=== PATIENT | female | born 1940 | race Caucasian/White ===

== ENCOUNTER → 2025-06-23 04:00 | Outpatient (REF) | payer MEDICARE, SELFPAY ==
[2025-06-23 08:22] LABS: Anion Gap 11 (5-15); BUN 14 mg/dL (4-19); BUN/Creat Ratio 14.3 RATIO (10-20); Calcium,Total 9.1 mg/dL (7.6-11.0); Carbon Dioxide 26.1 mmol/L (21.0-32.0); Chloride 106 mmol/L (98-108); Glucose 105 mg/dL (70-99); Potassium 4.2 mmol/L (3.3-5.1)
== END ==
LOC: OLS.SWAL 04:00
PROVIDERS: Referring Provider Internal Medicine; Visit Provider Internal Medicine
DX: I10 Essential (primary) hypertension (principal)
CPT/HCPCS: 36415; 80048

== ENCOUNTER → 2025-08-11 | Outpatient (REF) | payer MEDICARE, SELFPAY ==
[2025-08-11 09:43] LABS: Hematocrit 28.8 % (37-47); Hemoglobin 8.9 g/dL (12.0-15.0); Immature Granulocytes Count 0.020 X10^3/uL (0.0-0.0); Mean Corp Hgb Conc 30.9 g/dL (32-36); Mean Corpuscular Volume 100.0 fL (81-99); Mean Platelet Vol. 9.4 fl (6.2-12.0); NRBC Flagged by Analyzer 0 % (0-5); Platelet Count 163 K/mm3 (150-450); RBC Distribution Width CV 14.3 % (11.6-14.6); RBC Distribution Width SD 51.6 fl (35.1-43.9); Red Blood Count 2.88 M/mm3 (4.2-5.4); White Blood Count 5.8 K/mm3 (4.4-11.0)
[2025-08-11 10:33] LABS: Anion Gap 10 (5-15); BUN 22 mg/dL (4-19); BUN/Creat Ratio 22.6 RATIO (10-20); Calcium,Total 9.3 mg/dL (7.6-11.0); Carbon Dioxide 25.6 mmol/L (21.0-32.0); Chloride 107 mmol/L (98-108); Glucose 71 mg/dL (70-99); Potassium 4.2 mmol/L (3.3-5.1); Uric Acid 7.3 mg/dL (2.6-6.0)
[2025-08-12 05:12] LABS: CRP 3.90 mg/L (0.0-3.0)
== END ==
LOC: OLS.SWAL 07:50
PROVIDERS: Visit Provider Internal Medicine
DX: I10 Essential (primary) hypertension (principal); M10.9 Gout, unspecified
CPT/HCPCS: 36415; 80048; 84550; 85025; 86140

== ENCOUNTER → 2025-08-19 | Outpatient (REF) | payer MEDICARE, SELFPAY ==
--- OUTSIDE RECORDS SUMMARY | 2025-08-19 04:28 | XMS RPT_ITS | CCD ---
Author Organization [facility] Care Team Providers Care Parking Enforcement Technician Name Role Phone FITZ GA MD Primary Care Physician Yanira Liz Unavailable Unavailable FITZ GA MD Primary Care Unavailable FITZ GA MD Attending Unavailable FITZ GA MD Attending Unavailable FITZ GA MD Primary Care Unavailable FITZ GA MD Attending Unavailable FITZ GA MD Primary Care Unavailable FITZ GA MD Attending Unavailable FITZ GA MD Primary Care Unavailable GELA NATARAJAN MD Attending Unavailable FITZ GA MD Primary Care Unavailable Yanira Liz LPN Unavailable Unavailable Yanira Chen LPN Unavailable Unavailable FITZ GA MD Primary Care Unavailable GELA NATARAJAN MD Attending Unavailable FITZ GA MD Attending Unavailable FITZ GA MD Primary Care Unavailable FITZ GA MD Primary Care Unavailable CAREN LEE Attending Unavail able FITZ GA MD Primary Care Unavailable FITZ GA MD Attending Unavailable FITZ GA MD Primary Care Unavailable FITZ GA MD Attending Unavailable FITZ GA MD Attending Unavailable FITZ GA MD Primary Care Unavailable FITZ GA MD Attending Unavailable FITZ GA MD Primary Care Unavailable FITZ GA MD Attending Unavailable FITZ GA MD Primary Care Unavailable FITZ GA MD Attending Unavailable FITZ GA MD Primary Care Unavailable GELA NATARAJAN MD Attending Unavailable FITZ GA MD Primary Care Unavailable FITZ GA MD Attending Unavailable FITZ GA MD Primary Care Unavailable DR ROMULO BARNARD MD Attending UnavailFITZ Christina MD Primary Care Unavailable Farnaz Tierney Attending Unavailable Farnaz Tierney Referring Unavailable Farnaz Tierney Attending Unavailable Allergies Allergy Classification Reported Allergen(s) Allergy Type Date of Onset Reaction(s) Facility (20 sources) Codeine; Translations: [codeine] Drug Allergy N/V [facility] (20 sources) Penicillin; Translations: [penicillin] Drug Allergy RASH [facility] (20 sources) predniSONE; Translations: [prednisone] Drug Allergy Nausea (finding) [facility] (20 sources) Tetracycline; Translations: [tetracycline] Drug Allergy Unknown [facility] (20 sources) egg albumin (whites) Allergy to substance Unknown [facility] Medications Current Medications Medication Drug Class(es) Dates Sig (Normalized) Sig (Original) 8 hr acetaminophen 650 mg extended release oral tablet (20 sources) Start: 04-30-2019 take 1 mg by mouth every eight hours acetaminophen 650 mg oral tablet, extended release mg = tab(s), Oral, q8h, 0 Refill(s) Start Date: 04/30/19 Status: Ordered Medication Dispense Status: Completed Total Allowed Fills: 1 Fills Dispensed: 0 Start: 04-30-2019 take 1 mg by mouth e very eight hours acetaminophen 650 mg oral tablet, extended release mg = tab(s), Oral, q8h, 0 Refill(s) Start Date: 04/30/19 Status: Ordered acetaminophen 325 mg / oxyCODONE hydrochloride 5 mg oral tablet (2 sources) Opioid Agonist Start: 06-05-2022 End: 06-08-2022 take 1 tablet by mouth every six hours as needed for pain Percocet 5 mg-325 mg oral tablet Dose = 1 tab(s), Oral, q6h, PRN for pain, X 3 day(s), # 8 tab(s), 0 Refill(s), Fall Hematoma, 76.1 Start Date: 06/05/22 Stop Date: 06/08/22 Status: Ordered Albuterol (Eqv-ProAir HFA) 90 mcg/inh inhalation aerosol (7 sources) Start: 11-24-2020 take 1 dose by inhalation every four hours as needed for wheezing Albuterol (Eqv-ProAir HFA) 90 mcg/inh inhalation aerosol Dose = 2 puff(s), Inhalation, q4h, PRN Wheezing Start Date: 11/24/20 Status: Ordered apixaban 5 mg oral tablet (20 sources) Factor Xa Inhibitor Start: 04-29-2025 End: 04-24-2026 Eliquis 5 mg oral tablet Dose : 5 mg = 1 tab(s), Oral, BID, # 180 tab(s), 3 Refill(s), Pharmacy: [facility], 157.5, cm, 03/20/25 10:23:00 EDT, Height, 68.4, kg, 03/20/25 10:23:00 EDT, Dosing Weight Start Date: 04/29/25 Stop Date: 04/24/26 Status: Ordered Medication Dispense Status: Completed Quantity: 180.0 Unit: tab(s) Total Allowed Fills: 4 Fills Dispensed: 0 Start: 10-13-2022 End: 04-07-2025 Eliquis 5 mg oral tablet Dos e : 5 mg = 1 tab(s), Oral, BID, # 180 tab(s), 3 Refill(s), Pharmacy: [facility], 157, cm, 04/12/24 11:01:00 EDT, Height, 72.3, kg, 04/12/24 11:01:00 EDT, Dosing Weight Start Date: 04/12/24 Stop Date: 04/07/25 Status: Ordered Quantity: 180.0 Unit: tab(s) Repeat number: 4 Start: 03-29-2022 Eliquis 5 mg o ral tablet Dose : 5 mg = 1 tab(s), Oral, BID, # 84 tab(s), 0 Refill(s), samples given to patient (Rx) Start Date: 03/29/22 Status: Ordered Start: 02-01-2022 Eliquis 5 mg o ral tablet Dose : 5 mg = 1 tab(s), Oral, BID, # 180 tab(s), 3 Refill(s), Pharmacy: [facility] 73.3, cm, 01/06/22 8:05:00 EDT, Height, 73.3, kg, 01/06/22 8:05:00 EDT, Dosing Weight Start Date: 02/01/22 Status: Ordered Start: 03-31-2021 Eliquis 5 mg o ral tablet Dose : 5 mg = 1 tab(s), Oral, BID, # 180 tab(s), 3 Refill(s), Dosing Weight Start Date: 03/31/21 Status: Ordered atorvastatin 10 mg oral tablet (20 sources) HMG-CoA Reductase Inhibitor Start: 03-18-2025 End: 03-13-2026 atorvastatin 10 mg oral tablet Dose : 10 mg = 1 tab(s), Oral, qDay, # 90 tab(s), 3 Refill(s), Pharmacy: [facility], 157, cm, 03/06/25 13:18:00 EDT, Height, kg, 03/06/25 13:18:00 EDT, Dosing Weight Start Date: 03/18/25 Stop Date: 03/13/26 Status: Ordered Medication Dispense Status: Completed Quantity: 90.0 Unit: tab(s) Total Allowed Fills: 4 Fills Dispensed: 0 Start: 07-14-2023 End: 01-06-2025 atorvastatin 10 mg oral tabl et Dose : 10 mg = 1 tab(s), Oral, qDay, # 90 tab(s), 3 Refill(s), Pharmacy: [facility], 160, cm, 01/12/24 10:53:00 EDT, Height, kg, 01/12/24 10:53:00 EDT, Dosing Weight Start Date: 01/12/24 Stop Date: 01/06/25 Status: Ordered Quantity: 90.0 Unit: tab(s) Repeat number: 4 Start: 09-28-2021 End: 07-02-2023 atorvastatin 10 mg oral tabl et Dose : 10 mg = 1 tab(s), Oral, qDay, # 90 tab(s), 3 Refill(s), [facility]: [id number], 157, cm, 07/07/22 9:44:00 EDT, Height, kg, 07/07/22 9:44:00 EDT, Dosing Weight Start Date: 07/07/22 Stop Date: 07/02/23 Status: Ordered Start: 08-30-2021 atorvastatin 1 0 mg oral tablet Dose : 10 mg = 1 tab(s), Oral, qDay, # 30 tab(s), 0 Refill(s), [facility] [address] 162, cm, 08/27/21 9:15:00 EST, Height, kg, 08/27/21 9:15:00 EST, Dosing Weight Start Date: 08/30/21 Status: Ordered Start: 08-04-2020 atorvastatin 1 0 mg oral tablet Dose : 10 mg = 1 tab(s), Oral, qDay, # 90 tab(s), 3 Refill(s), [facility] [address] 158, cm, 08/04/20 10:48:00 EDT, Height, kg, 08/04/20 10:48:00 EDT, Dosing Weight Start Date: 08/04/20 Status: Ordered cephalexin 500 mg oral capsule (1 source) Cephalosporin Antibacterial Start: 11-24-2022 End: 12-01-2022 cephalexin 500 mg oral capsule Dose : 500 mg = 1 cap(s), Oral, TID, X 7 day(s), # 21 cap(s), 0 Refill(s), 12/01/22 11:50:00 EST, Pharmacy: [facility] #[id number], Contusion of face Knee contusion, 160, cm, 11/24/22 11:24:00 EST, Height, 76.5 Start Date: 11/24/22 Stop Date: 12/01/22 Status: Ordered cholestyramine resin 4000 mg powder for oral suspension (2 sources) Bile Acid Sequestrant Start: 11-30-2021 cholesty ramine 4 g/9 g oral powder for reconstitution 1 packet(s), Oral, BID, # 60 packet(s), 11 Refill(s), [facility] [address] Sinusitis Diarrhea, 159, cm, 11/30/21 11:16:00 EST, Height, kg, 11/30/21 11:16:00 EST, Dosing Weight Start Date: 11/30/21 Status: Ordered citalopram 40 mg oral tablet (20 sources) Serotonin Reuptake Inhibitor Start: 04-12-2024 citalopram 40 mg ora l tablet Dose : 40 mg = 1 tab(s), Oral, qDay, # 90 tab(s), 3 Refill(s), [facility], 157, cm, 04/12/24 11:01:00 EDT, Height, kg, 04/12/24 11:01:00 EDT, Dosing Weight Start Date: 04/12/24 Status: Ordered Start: 07-14-2023 citalopram 40 mg oral tablet Dose : 40 mg = 1 tab(s), Oral, qDay, # 90 tab(s), 3 Refill(s), [facility]: [facility] #[id number], 157, cm, 07/14/23 10:36:00 EDT, Height, kg, 07/14/23 10:36:00 EDT, Dosing Weight Start Date: 07/14/23 Status: Ordered Start: 04-14-2023 citalopram 20 mg oral tablet Dose : 20 mg = 1 tab(s), Oral, qDay, # 90 tab(s), 3 Refill(s), [facility]: [facility] #[id number], 160, cm, 04/14/23 10:24:00 EDT, Height, kg, 04/14/23 10:24:00 EDT, Dosing Weight Start Date: 04/14/23 Status: Ordered Start: 07-07-2022 citalopram 20 mg oral tablet Dose : 20 mg = 1 tab(s), Oral, qDay, # 90 tab(s), 3 Refill(s), [facility]: [facility] #[id number], 157, cm, 07/07/22 9:44:00 EDT, Height, kg, 07/07/22 9:44:00 EDT, Dosing Weight Start Date: 07/07/22 Status: Ordered Start: 09-28-2021 citalopram 20 mg oral tablet Dose : 20 mg = 1 tab(s), Oral, qDay, # 90 tab(s), 3 Refill(s), [facility]: [facility] 158.5, cm, 09/28/21 13:07:00 EST, Height, kg, 09/28/21 13:07:00 EST, Dosing Weight Start Date: 09/28/21 Status: Ordered Start: 03-31-2021 citalopram 20 mg oral tablet Dose : 20 mg = 1 tab(s), Oral, qDay, # 90 tab(s), 3 Refill(s), Dosing Weight Start Date: 03/31/21 Status: Ordered dapagliflozin 10 mg oral tablet (4 sources) Sodium-Glucose Cotransporter 2 Inhibitor Start: 07-09-2024 Farxiga 10 mg oral tablet Dose : 10 mg = 1 tab(s), Oral, qDay, # 30 tab(s), 11 Refill(s), Pharmacy: [facility], 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 (CKD), 157, cm, 04/12/24 11:01:00 EDT, Height, kg, 04/12/24 11:01:00 EDT, Dosing Weight Start Date: 07/09/24 Status: Ordered Start: 07-14-2023 Farxiga 10 mg oral tablet Dose : 10 mg = 1 tab(s), Oral, qDay, # 30 tab(s), 11 Refill(s), [facility]: [facility] #[id number], 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 (CKD), 157, cm, 07/14/23 10:36:00 EDT, Height, kg, 07/14/23 10:36:00 EDT, Dosing Weight Start Date: 07/14/23 Status: Ordered 24 hr dilTIAZem hydrochloride 120 mg extended release oral tablet (5 sources) Calcium Channel Nando Start: 08-02-2021 End: 09-23-2022 take 1 capsule by mouth every hour, then take 1 capsule by mouth once daily dilTIAZem 120 mg/24 hours oral capsule, extended release Dose : 120 mg = 1 cap(s), Oral, qDay, # 90 cap(s), 3 Refill(s), [facility]: [facility] 158.5, cm, 09/28/21 13:07:00 EST, Height, kg, 09/28/21 13:07:00 EST, Dosing Weight Start Date: 09/28/21 Stop Date: 09/23/22 Status: Ordered escitalopram 10 mg oral tablet (10 sources) Serotonin Reuptake Inhibitor Start: 02-28-2025 Lexapro 10 mg oral tablet Dose : 10 mg = 1 tab(s), Oral, qDay, # 90 tab(s), 3 Refill(s), Pharmacy: [facility], Diabetes Diastolic dysfunction, 157, cm, 02/20/25 9:22:00 EDT, Height, kg, 02/20/25 9:22:00 EDT, Dosing Weight Start Date: 02/28/25 Status: Ordered Medication Dispense Status: Completed Quantity: 90.0 Unit: tab(s) Total Allowed Fills: 4 Fills Dispensed: 0 Indications: Unspecified diastolic (congestive) heart failure; Type 2 diabetes mellitus without complications; Start: 12-24-2024 Lexapro 10 mg oral tablet Dose : 10 mg = 1 tab(s), Oral, qDay, # 90 tab(s), 3 Refill(s), Pharmacy: [facility], Diabetes Diastolic dysfunction, 157, cm, 12/05/24 14:45:00 EST, Height, kg, 12/05/24 14:45:00 EST, Dosing Weight Start Date: 12/24/24 Status: Ordered Quantity: 90.0 Unit: tab(s) Repeat number: 4 Indications: Type 2 diabetes mellitus without complications; Unspecified diastolic (congestive) heart failure; ferrous sulfate 325 mg delayed release oral tablet (3 sources) Start: 04-23-2025 ferrous sulfat e 325 mg (65 mg elemental iron) oral delayed release tablet Dose : 325 mg = 1 tab(s), Oral, BID, 0 Refill(s) Start Date: 04/23/25 Status: Ordered Medication Dispense Status: Completed Total Allowed Fills: 1 Fills Dispensed: 0 fluconazole 100 mg oral tablet (1 source) Azole Antifungal Start: 01-12-2024 End: 01-19-2024 fluconazole 100 mg oral tablet Dose : 100 mg = 1 tab(s), Oral, qDay, X 7 day(s), # 7 tab(s), 0 Refill(s), 01/19/24 11:45:00 AM EDT, Pharmacy: [facility], Well adult exam Acquired hypothyroidism, 160, cm, 01/12/24 10:53:00 EDT, Height, 71.7, kg, 01/12/24 10:53:00 EDT, Dosing Weight Start Date: 01/12/24 Stop Date: 01/19/24 Status: Ordered furosemide 20 mg oral tablet (20 sources) Loop Diuretic Start: 12-05-2024 furosemide 20 mg oral tablet Dose : 20 mg = 1 tab(s), Oral, qDay, # 90 tab(s), 3 Refill(s), Pharmacy: [facility], 157, cm, 12/05/24 14:45:00 EST, Height, kg, 12/05/24 14:45:00 EST, Dosing Weight Start Date: 12/05/24 Status: Ordered Medication Dispense Status: Completed Quantity: 90.0 Unit: tab(s) Total Allowed Fills: 4 Fills Dispensed: 0 Start: 04-12-2024 End: 07-11-2024 furosemide 40 mg oral tablet Dose : 20 mg = 0.5 tab(s), Oral, Daily, # 15 tab(s), 2 Refill(s), Pharmacy: [facility], Hyperlipidemia Acquired hypothyroidism, 157, cm, 04/12/24 11:01:00 EDT, Height, kg, 04/12/24 11:01:00 EDT, Dosing Weight Start Date: 04/12/24 Stop Date: 07/11/24 Status: Ordered Start: 03-03-2023 Lasix 20 mg or al tablet Dose : 20 mg = 1 tab(s), Oral, Daily, # 90 tab(s), 1 Refill(s), [facility]: [facility] #[id number], 160, cm, 02/02/23 11:34:00 EDT, Height, kg, 02/02/23 11:34:00 EDT, Dosing Weight Start Date: 03/03/23 Status: Ordered Start: 09-28-2021 Lasix 20 mg or al tablet Dose : 20 mg = 1 tab(s), Oral, Daily, # 90 tab(s), 0 Refill(s), [facility][id number], 160, cm, 11/24/22 11:24:00 EST, Height, kg, 11/24/22 11:24:00 EST, Dosing Weight Start Date: 11/25/22 Status: Ordered Start: 03-31-2021 Lasix 20 mg or al tablet Dose : 20 mg = 1 tab(s), Oral, Daily, # 90 tab(s), 3 Refill(s), Dosing Weight Start Date: 03/31/21 Status: Ordered gabapentin 300 mg oral capsule (20 sources) Anti-epileptic Agent Start: 04-12-2024 End: 04-07-2025 gabapentin 300 mg oral capsule Dose : 300 mg = 1 cap(s), Oral, TID, # 270 cap(s), 3 Refill(s), Pharmacy: [facility], Lumbar spinal stenosis, 157, cm, 04/12/24 11:01:00 EDT, Height, 72.3, kg, 04/12/24 11:01:00 EDT, Dosing Weight Start Date: 04/12/24 Stop Date: 04/07/25 Status: Ordered Start: 01-12-2024 End: 07-10-2024 gabapentin 600 mg oral table t Dose : 600 mg = 1 tab(s), Oral, TID, # 270 tab(s), 1 Refill(s), Pharmacy: [facility], Neuropathy, 160, cm, 01/12/24 10:53:00 EDT, Height, 71.7, kg, 01/12/24 10:53:00 EDT, Dosing Weight Start Date: 01/12/24 Stop Date: 07/10/24 Status: Ordered Start: 02-01-2023 End: 01-10-2024 gabapentin 600 mg oral table t Dose : 600 mg = 1 tab(s), Oral, TID, # 270 tab(s), 1 Refill(s), [facility]: [facility] #[id number], Neuropathy, 157, cm, 07/14/23 10:36:00 EDT, Height, 75.6, kg, 07/14/23 10:36:00 EDT, Dosing Weight Start Date: 07/14/23 Stop Date: 01/10/24 Status: Ordered Start: 06-03-2022 End: 01-29-2023 gabapentin 600 mg oral table t Dose : 600 mg = 1 tab(s), Oral, TID, # 270 tab(s), 1 Refill(s), [facility]acy: [facility] #[id number], Neuropathy, 160, cm, 08/02/22 10:34:00 EDT, Height, 73.7, kg, 08/02/22 10:34:00 EDT, Dosing Weight Start Date: 08/02/22 Stop Date: 01/29/23 Status: Ordered Start: 04-29-2022 take 1 tablet by ok th every other day gabapentin 600 mg oral tablet Dose : 600 mg =, Oral, Every other day, # 30 cap(s), 0 Refill(s), 71.5 Start Date: 04/29/22 Status: Ordered Start: 03-03-2022 take 1 tablet by ok th in the morning, then take 1 tablet by mouth once daily, then take 2 tablets by mouth at bedtime gabapentin 600 mg oral tablet See Instructions, Take 1 in the morning, 1 in the middle of the day and 2 at bedtime, # 120 tab(s), 2 Refill(s), Pharmacy: [address], Lumbar spinal stenosis, 162.6, cm, 03/03/22 10:06:00 EDT, Height, 72.1, kg, 03/03/22 10:06:00 EDT, Dosi... Start Date: 03/03/22 Status: Ordered Start: 08-02-2021 End: 10-31-2021 take 1 tablet by mouth in the morning, then take 1 tablet by mouth once daily, then take 2 tablets by mouth at bedtime gabapentin 600 mg oral tablet See Instructions, Take 1 in the morning, 1 in the middle of the day and 2 at bedtime, # 120 tab(s), 2 Refill(s), Pharmacy: [address], Lumbar spinal stenosis, 157.5, cm, 10/26/21 12:29:00 EST, Height, 76.8, kg, 10/26/21 12:29:00 EST, Dosi... Start Date: 10/26/21 Status: Ordered glimepiride 4 mg oral tablet (20 sources) Sulfonylurea Start: 03-18-2025 glimepiride 4 mg oral tablet Dose : 4 mg = 1 tab(s), Oral, qDay, # 30 tab(s), 2 Refill(s), Pharmacy: [facility], 157, cm, 03/06/25 13:18:00 EDT, Height, kg, 03/06/25 13:18:00 EDT, Dosing Weight Start Date: 03/18/25 Status: Ordered Medication Dispense Status: Completed Quantity: 30.0 Unit: tab(s) Total Allowed Fills: 3 Fills Dispensed: 0 Start: 01-09-2025 glimepiride 4 mg oral tablet Dose : 4 mg = 1 tab(s), Oral, qDay, # 30 tab(s), 2 Refill(s), Pharmacy: [facility], 157, cm, 12/05/24 14:45:00 EST, Height, kg, 01/02/25 14:37:00 EDT, Dosing Weight Start Date: 01/09/25 Status: Ordered Quantity: 30.0 Unit: tab(s) Repeat number: 3 Start: 06-14-2023 glimepiride 1 mg oral tablet Dose : 1 mg = 1 tab(s), Oral, qDay, # 90 tab(s), 3 Refill(s), [facility]: [facility] #[id number], 157, cm, 06/07/23 14:25:00 EDT, Height, kg, 06/07/23 14:25:00 EDT, Dosing Weight Start Date: 06/14/23 Status: Ordered Start: 03-31-2022 glimepiride 1 mg oral tablet Dose : 1 mg = 1 tab(s), Oral, qDay, # 90 tab(s), 3 Refill(s), [facility] [address] 158, cm, 03/31/22 11:03:00 EDT, Height Start Date: 03/31/22 Status: Ordered Start: 02-17-2022 glimepiride 2 mg oral tablet Dose : 2 mg = 1 tab(s), Oral, qDay, # 90 tab(s), 3 Refill(s), Pharmacy: [facility] 158.5, cm, 02/17/22 8:57:00 EDT, Height, kg, 02/17/22 8:57:00 EDT, Dosing Weight Start Date: 02/17/22 Status: Ordered Start: 09-28-2021 glimepiride 2 mg oral tablet Dose : 2 mg = 1 tab(s), Oral, qDay, # 90 tab(s), 3 Refill(s), Pharmacy: [facility] 158.5, cm, 09/28/21 13:07:00 EST, Height, kg, 09/28/21 13:07:00 EST, Dosing Weight Start Date: 09/28/21 Status: Ordered Start: 03-31-2021 glimepiride 2 mg oral tablet Dose : 2 mg = 1 tab(s), Oral, qDay, # 90 tab(s), 3 Refill(s), Dosing Weight Start Date: 03/31/21 Status: Ordered levothyroxine sodium 0.025 mg oral tablet (20 sources) l-Thyroxine Start: 03-06-2025 levothyroxine 25 mcg (0.025 mg) oral tablet Dose : 25 mcg = 1 tab(s), Oral, qDayAC, # 90 tab(s), 3 Refill(s), Pharmacy: [facility], 157, cm, 03/06/25 13:18:00 EDT, Height, kg, 03/06/25 13:18:00 EDT, Dosing Weight Start Date: 03/06/25 Status: Ordered Medication Dispense Status: Completed Quantity: 90.0 Unit: tab(s) Total Allowed Fills: 4 Fills Dispensed: 0 Start: 10-13-2023 levothyroxine 25 mcg (0.025 mg) oral tablet Dose : 25 mcg = 1 tab(s), Oral, qDayAC, # 90 tab(s), 3 Refill(s), Pharmacy: [facility], 160, cm, 10/13/23 10:47:00 EST, Height, kg, 10/13/23 10:47:00 EST, Dosing Weight Start Date: 10/13/23 Status: Ordered Start: 07-14-2023 levothyroxine 50 mcg (0.05 mg) oral tablet Dose : 50 mcg = 1 tab(s), Oral, qDay, # 90 tab(s), 3 Refill(s), [facility]: [facility] #[id number], 157, cm, 07/14/23 10:36:00 EDT, Height, kg, 07/14/23 10:36:00 EDT, Dosing Weight Start Date: 07/14/23 Status: Ordered Start: 04-14-2023 levothyroxine 50 mcg (0.05 mg) oral tablet Dose : 50 mcg = 1 tab(s), Oral, qDay, # 90 tab(s), 3 Refill(s), [facility]: [facility] #[id number], 160, cm, 04/14/23 10:24:00 EDT, Height, kg, 04/14/23 10:24:00 EDT, Dosing Weight Start Date: 04/14/23 Status: Ordered Start: 07-07-2022 levothyroxine 50 mcg (0.05 mg) oral tablet Dose : 50 mcg = 1 tab(s), Oral, qDay, # 90 tab(s), 3 Refill(s), Pharmacy: [facility] #[id number], 157, cm, 07/07/22 9:44:00 EDT, Height, kg, 07/07/22 9:44:00 EDT, Dosing Weight Start Date: 07/07/22 Status: Ordered Start: 09-28-2021 levothyroxine 50 mcg (0.05 mg) oral tablet Dose : 50 mcg = 1 tab(s), Oral, qDay, # 90 tab(s), 3 Refill(s), [facility]: [facility] 158.5, cm, 09/28/21 13:07:00 EST, Height, kg, 09/28/21 13:07:00 EST, Dosing Weight Start Date: 09/28/21 Status: Ordered Start: 03-31-2021 levothyroxine 50 mcg (0.05 mg) oral tablet Dose : 50 mcg = 1 tab(s), Oral, qDay, # 90 tab(s), 3 Refill(s), Dosing Weight Start Date: 03/31/21 Status: Ordered LORazepam 1 mg oral tablet (10 sources) Benzodiazepine Start: 02-20-2025 End: 09-09-2025 LORazepam 1 mg oral tablet Dose : 1 mg = 1 tab(s), Oral, qHS, # 30 tab(s), 2 Refill(s), Pharmacy: [facility], Insomnia, 157.5, cm, 05/09/25 10:33:00 EDT, Height, 67, kg, 05/09/25 10:33:00 EDT, Dosing Weight Start Date: 06/11/25 Stop Date: 09/09/25 Status: Ordered Medication Dispense Status: Completed Quantity: 30.0 Unit: tab(s) Total Allowed Fills: 3 Fills Dispensed: 0 Indications: Insomnia, unspecified; Start: 01-31-2025 End: 03-02-2025 LORazepam 0.5 mg oral tablet Dose : 0.5 mg = 1 tab(s), Oral, qHS, X 30 day(s), # 30 tab(s), 0 Refill(s), 03/02/25 3:21:00 PM EDT, Pharmacy: [facility], Major depressive disorder, 157, cm, 12/05/24 14:45:00 EST, Height, 68, kg, 01/30/25 13:14:00 EDT, Dosing Weight Start Date: 01/31/25 Stop Date: 03/02/25 Status: Ordered Quantity: 30.0 Unit: tab(s) Repeat number: 1 Indications: Major depressive disorder, single episode, unspecified; melatonin 5 mg chewable tablet (3 sources) Start: 01-12-2024 melatonin 5 mg oral tablet, chewable Dose : 10 mg = 2 tab(s), Chewed, qHS, # 90 tab(s), 0 Refill(s) Start Date: 01/12/24 Status: Ordered 24 hr metoprolol succinate 50 mg extended release oral tablet (10 sources) beta-Adrenergic Nando Start: 05-09-2025 metoprolol succinate 50 mg oral TABLET extended release Dose : 50 mg = 1 tab(s), Oral, BID, # 60 tab(s), 8 Refill(s), Pharmacy: [facility], 157.5, cm, 05/09/25 10:33:00 EDT, Height, kg, 05/09/25 10:33:00 EDT, Dosing Weight Start Date: 05/09/25 Status: Ordered Medication Dispense Status: Completed Quantity: 60.0 Unit: tab(s) Total Allowed Fills: 9 Fills Dispensed: 0 Start: 12-05-2024 End: 11-30-2025 metoprolol succinate 25 mg o ral TABLET extended release Dose : 25 mg = 1 tab(s), Oral, BID, Do not crush or chew (controlled release), # 180 tab(s), 1 Refill(s), Pharmacy: [facility], 157.5, cm, 03/20/25 10:23:00 EDT, Height, kg, 03/20/25 10:23:00 EDT, Dosing Weight Start Date: 03/24/25 Status: Ordered Quantity: 180.0 Unit: tab(s) Repeat number: 2 pantoprazole 40 mg delayed release oral tablet (20 sources) Proton Pump Inhibitor Start: 07-14-2023 End: 11-30-2025 pantoprazole 40 mg oral enteric coated tablet Dose : 40 mg = 1 tab(s), Oral, qDay, # 90 tab(s), 3 Refill(s), Pharmacy: [facility], 157, cm, 12/05/24 14:45:00 EST, Height, kg, 12/05/24 14:45:00 EST, Dosing Weight Start Date: 12/05/24 Stop Date: 11/30/25 Status: Ordered Medication Dispense Status: Completed Quantity: 90.0 Unit: tab(s) Total Allowed Fills: 4 Fills Dispensed: 0 Start: 07-07-2022 End: 07-02-2023 pantoprazole 40 mg oral ente yong coated tablet Dose : 40 mg = 1 tab(s), Oral, qDay, # 90 tab(s), 3 Refill(s), [facility]: [id number], 157, cm, 07/07/22 9:44:00 EDT, Height, kg, 07/07/22 9:44:00 EDT, Dosing Weight Start Date: 07/07/22 Stop Date: 07/02/23 Status: Ordered Start: 03-31-2022 pantoprazole 4 0 mg oral enteric coated tablet Dose : 40 mg = 1 tab(s), Oral, qDay, # 30 tab(s), 3 Refill(s), [facility]acy: [id number] 158, cm, 03/31/22 11:03:00 EDT, Height Start Date: 03/31/22 Status: Ordered Start: 03-03-2022 pantoprazole 4 0 mg oral enteric coated tablet 0 Refill(s) Start Date: 03/03/22 Status: Ordered Start: 03-31-2021 pantoprazole 4 0 mg oral enteric coated tablet Dose : 80 mg = 2 tab(s), Oral, qDay, # 180 tab(s), 3 Refill(s), Dosing Weight Start Date: 03/31/21 Status: Ordered potassium chloride 10 meq or al tablet (20 sources) Start: 06-17-2025 Potassium Chlo ride (Eqv-K-Tab) 10 mEq oral tablet, extended release Dose : 10 mEq = 1 tab(s), Oral, qDay, # 30 tab(s), 11 Refill(s), Pharmacy: [facility], 157.5, cm, 06/17/25 11:12:00 EDT, Height, kg, 06/17/25 11:12:00 EDT, Dosing Weight Start Date: 06/17/25 Status: Ordered Medication Dispense Status: Completed Quantity: 30.0 Unit: tab(s) Total Allowed Fills: 12 Fills Dispensed: 0 Start: 03-03-2023 potassium chlo ride 8 mEq (600 mg) oral tablet, extended release Dose : 8 mEq = 1 tab(s), Oral, qDay, take with food., # 90 tab(s), 1 Refill(s), [id number], 160, cm, 02/02/23 11:34:00 EDT, Height, kg, 02/02/23 11:34:00 EDT, Dosing Weight Start Date: 03/03/23 Status: Ordered Start: 09-28-2021 potassium chlo ride 8 mEq (600 mg) oral tablet, extended release Dose : 8 mEq = 1 tab(s), Oral, qDay, take with food., # 90 tab(s), 0 Refill(s), [facility][id number], 160, cm, 11/24/22 11:24:00 EST, Height, kg, 11/24/22 11:24:00 EST, Dosing Weight Start Date: 11/25/22 Status: Ordered Start: 09-28-2021 potassium chlo ride 8 mEq (600 mg) oral tablet, extended release Dose : 8 mEq = 1 tab(s), Oral, qDay, take with food., # 90 tab(s), 3 Refill(s), [facility]: [facility] 158.5, cm, 09/28/21 13:07:00 EST, Height, kg, 09/28/21 13:07:00 EST, Dosing Weight Start Date: 09/28/21 Status: Ordered Start: 03-31-2021 potassium chlo ride 8 mEq (600 mg) oral tablet, extended release Dose : 8 mEq = 1 tab(s), Oral, qDay, take with food., # 90 tab(s), 3 Refill(s), Dosing Weight Start Date: 03/31/21 Status: Ordered sotalol hydrochloride 80 mg oral tablet (20 sources) Antiarrhythmic Start: 04-14-2023 sotalol 80 mg oral tablet Dose : 80 mg = 1 tab(s), Oral, BID, # 180 tab(s), 3 Refill(s), [facility]acy: [facility] #[id number], 160, cm, 04/14/23 10:24:00 EDT, Height, kg, 04/14/23 10:24:00 EDT, Dosing Weight Start Date: 04/14/23 Status: Ordered Start: 07-07-2022 sotalol 80 mg oral tablet Dose : 80 mg = 1 tab(s), Oral, BID, # 180 tab(s), 3 Refill(s), Pharmacy: [facility] #[id number], 157, cm, 07/07/22 9:44:00 EDT, Height, kg, 07/07/22 9:44:00 EDT, Dosing Weight Start Date: 07/07/22 Status: Ordered Start: 06-16-2021 End: 02-12-2022 sotalol 80 mg oral tablet Do se : 80 mg = 1 tab(s), Oral, BID, # 180 tab(s), 3 Refill(s), Pharmacy: [facility] 158.5, cm, 09/28/21 13:07:00 EST, Height, kg, 09/28/21 13:07:00 EST, Dosing Weight Start Date: 10/15/21 Stop Date: 02/12/22 Status: Ordered sulfamethoxazole 800 mg / trimethoprim 160 mg oral tablet (1 source) Dihydrofolate Reductase Inhibitor Antibacterial, Sulfonamide Antimicrobial Start: 02-20-2025 End: 03-06-2025 take 1 tablet by mouth twice daily Bactrim DS 800 mg-160 mg oral tablet Dose = 1 tab(s), Oral, BID, X 14 day(s), # 28 tab(s), 0 Refill(s), Pharmacy: [facility], 157, cm, 02/20/25 9:22:00 EDT, Height, 67.2, kg, 02/20/25 9:22:00 EDT, Dosing Weight Start Date: 02/20/25 Stop Date: 03/06/25 Status: Ordered Quantity: 28.0 Unit: tab(s) Repeat number: 1 Indications: Gastro-esophageal reflux disease without esophagitis; Cutaneous abscess of neck; Type 2 diabetes mellitus without complications; Hyperlipidemia, unspecified; Chronic diastolic (congestive) heart failure; Hypothyroidism, unspecified; Anemia, unspecified; Other specified abnormal findings of blood chemistry; Unspecified atrial fibrillation; Vitamin C 500 mg oral tablet (3 sources) Start: 04-23-2025 Vitamin C 500 mg oral tablet Dose : 500 mg = 1 tab(s), Oral, BID, 0 Refill(s) Start Date: 04/23/25 Status: Ordered Medication Dispense Status: Completed Total Allowed Fills: 1 Fills Dispensed: 0 Start: 04-23-2025 Vitamin C 500 mg oral tablet Dose : 500 mg = 1 tab(s), Oral, BID, 0 Refill(s) Start Date: 04/23/25 Status: Ordered Repeat number: 1 Completed/Discontinued Medications Medication Drug Class(es) Dates Sig (Normalized) Sig (Original) cyclobenzaprine hydrochloride 10 mg oral tablet (20 sources) Muscle Relaxant Start: 04-22-2025 End: 06-21-2025 cyclobenzaprine 10 mg oral tablet Dose : 10 mg = 1 tab(s), Oral, qHS, # 30 tab(s), 1 Refill(s), Pharmacy: [facility], 157.5, cm, 03/20/25 10:23:00 EDT, Height, kg, 03/20/25 10:23:00 EDT, Dosing Weight Start Date: 04/22/25 Stop Date: 06/21/25 Status: Ordered Medication Dispense Status: Completed Quantity: 30.0 Unit: tab(s) Total Allowed Fills: 2 Fills Dispensed: 0 Start: 02-20-2025 End: 04-21-2025 cyclobenzaprine 10 mg oral t ablet Dose : 10 mg = 1 tab(s), Oral, qHS, # 30 tab(s), 1 Refill(s), Pharmacy: [facility], 157, cm, 02/20/25 9:22:00 EDT, Height, kg, 02/20/25 9:22:00 EDT, Dosing Weight Start Date: 02/20/25 Stop Date: 04/21/25 Status: Ordered Quantity: 30.0 Unit: tab(s) Repeat number: 2 Start: 12-05-2024 End: 06-03-2025 cyclobenzaprine 5 mg oral ta blet Dose : 5 mg = 1 tab(s), Oral, qHS, # 90 tab(s), 1 Refill(s), Pharmacy: [facility], Diabetes Diastolic dysfunction, 157, cm, 12/05/24 14:45:00 EST, Height, kg, 12/05/24 14:45:00 EST, Dosing Weight Start Date: 12/05/24 Stop Date: 06/03/25 Status: Ordered Quantity: 90.0 Unit: tab(s) Repeat number: 2 Indications: Type 2 diabetes mellitus without complications; Unspecified diastolic (congestive) heart failure; Start: 04-12-2024 End: 06-11-2024 cyclobenzaprine 10 mg oral t ablet Dose : 10 mg = 1 tab(s), Oral, TID, PRN for muscle spasm, # 90 tab(s), 1 Refill(s), Pharmacy: [facility], 157, cm, 04/12/24 11:01:00 EDT, Height, kg, 04/12/24 11:01:00 EDT, Dosing Weight Start Date: 04/12/24 Stop Date: 06/11/24 Status: Ordered Start: 01-02-2024 End: 03-12-2024 cyclobenzaprine 10 mg oral t ablet Dose : 10 mg = 1 tab(s), Oral, TID, PRN for muscle spasm, # 90 tab(s), 1 Refill(s), Pharmacy: [facility], 160, cm, 01/12/24 10:53:00 EDT, Height, kg, 01/12/24 10:53:00 EDT, Dosing Weight Start Date: 01/12/24 Stop Date: 03/12/24 Status: Ordered Start: 07-14-2023 End: 09-12-2023 cyclobenzaprine 10 mg oral t ablet Dose : 10 mg = 1 tab(s), Oral, TID, PRN for muscle spasm, # 90 tab(s), 1 Refill(s), Pharmacy: [facility] #[id number], 157, cm, 07/14/23 10:36:00 EDT, Height, kg, 07/14/23 10:36:00 EDT, Dosing Weight Start Date: 07/14/23 Stop Date: 09/12/23 Status: Ordered Start: 04-14-2023 End: 06-13-2023 cyclobenzaprine 10 mg oral t ablet Dose : 10 mg = 1 tab(s), Oral, TID, PRN for muscle spasm, # 90 tab(s), 1 Refill(s), Pharmacy: [facility] #[id number], 160, cm, 04/14/23 10:24:00 EDT, Height, kg, 04/14/23 10:24:00 EDT, Dosing Weight Start Date: 04/14/23 Stop Date: 06/13/23 Status: Ordered Start: 10-13-2022 End: 12-12-2022 cyclobenzaprine 10 mg oral t ablet Dose : 10 mg = 1 tab(s), Oral, TID, PRN for muscle spasm, # 90 tab(s), 1 Refill(s), Pharmacy: [facility] #[id number], 160, cm, 10/13/22 10:58:00 EST, Height, kg, 10/13/22 10:58:00 EST, Dosing Weight Start Date: 10/13/22 Stop Date: 12/12/22 Status: Ordered Start: 07-07-2022 End: 09-05-2022 cyclobenzaprine 10 mg oral t ablet Dose : 10 mg = 1 tab(s), Oral, TID, PRN for muscle spasm, # 90 tab(s), 1 Refill(s), Pharmacy: [facility] #[id number], 157, cm, 07/07/22 9:44:00 EDT, Height, kg, 07/07/22 9:44:00 EDT, Dosing Weight Start Date: 07/07/22 Stop Date: 09/05/22 Status: Ordered Start: 03-31-2022 End: 05-30-2022 cyclobenzaprine 10 mg oral t ablet Dose : 10 mg = 1 tab(s), Oral, TID, PRN for muscle spasm, # 90 tab(s), 1 Refill(s), Pharmacy: [facility] [address] 158, cm, 03/31/22 11:03:00 EDT, Height Start Date: 03/31/22 Stop Date: 05/30/22 Status: Ordered Start: 02-17-2022 End: 04-18-2022 cyclobenzaprine 5 mg oral ta blet Dose : 5 mg = 1 tab(s), Oral, TID, # 90 tab(s), 1 Refill(s), Pharmacy: [facility] Chronic diarrhea Low back pain, 158.5, cm, 02/17/22 8:57:00 EDT, Height Start Date: 02/17/22 Stop Date: 04/18/22 Status: Ordered Start: 08-10-2021 End: 11-26-2021 cyclobenzaprine 10 mg oral t ablet Dose : 10 mg = 1 tab(s), Oral, qHS, PRN Muscle pain, # 30 tab(s), 1 Refill(s), 11/26/21 15:30:00 EST, Pharmacy: [facility] [address] 162.6, cm, 07/14/21 9:02:00 EDT, Height, kg, 07/14/21 9:02:00 EDT, Dosing Weight Start Date: 08/10/21 Stop Date: 11/26/21 Status: Ordered Problems Active Problems Problem Classification Problem Date Documented Date Episodic/Chronic Acute and unspecified renal failure (6 sources) Acute renal failure syndrome 03-20-2025 Episodic Asthma (20 sources) Allergic asthma 02-03-2020 Chronic Cardiac dysrhythmias (20 sources) Atrial fibrillation; Translations: [Paroxysmal atrial fibrillation] Onset: 12-29-2020 Chronic Chronic kidney disease (20 sources) Chronic kidney disease stage 3; Translations: [Chronic kidney disease stage 3A ] 12-31-2020 Chronic Chronic kidney disease (6 sources) Chronic kidney disease; Translations: [Chronic kidney disease, stage 3a] Onset: 3 Chronic ulcer of skin (20 sources) Ulcer of left lower leg; Translations: [Ulcer of right lower leg] Onset: 2 07-15-2022 Chronic Coagulation and hemorrhagic disorders (16 sources) Hypercoagulability state 06-07-2023 Chronic Congestive heart failure; nonhypertensive (20 sources) Diastolic dysfunction; Translations: [Acute on chronic diastolic heart failure] Onset: 3 07-26-2019 Chronic Deficiency and other anemia (9 sources) Anemia; Translations: [Anemia, unspecified] 02-20-2025 Episodic Diabetes mellitus with complications (5 sources) Skin ulcer due to type 2 diabetes mellitus; Translations: [Type 2 diabetes mellitus with other skin ulcer] Onset: 3 Chronic Diabetes mellitus without complication (20 sources) Type 2 diabetes mellitus; Translations: [Type 2 diabetes mellitus without complication] Onset: 3 02-03-2020 Chronic Disorders of lipid metabolism (20 sources) Hyperlipidemia; Translations: [Hyperlipidemia, unspecified] Onset: 3 02-03-2020 Chronic E Codes: Fall (1 source) Fall; Translations: [Unspecified fall, initial encounter] Onset: 2 Episodic Epilepsy; convulsions (20 sources) Seizure 12-29-2020 Episodic Esophageal disorders (20 sources) Gastroesophageal reflux disease 02-03-2020 Chronic Essential hypertension (20 sources) Hypertensive disorder; Translations: [Essential (primary) hypertension] Onset: 5 05-31-2019 Chronic Gout and other crystal arthropathies (16 sources) Gout 06-07-2023 Chronic Heart valve disorders (1 source) Combined rheumatic disorders of mitral, aortic and tricuspid valves; Translations: [Combined rheumatic disorders of mitral, aortic and tricuspid valves] Onset: 5 Chronic Hypertension with complications and secondary hypertension (1 source) Hypertensive heart disease with heart failure; Translations: [Hypertensive heart disease with heart failure] Onset: 5 Chronic Mood disorders (20 sources) Depression; Translations: [Major depressive disorder] 11-29-2014 Chronic Other connective tissue disease (14 sources) Spasm 10-12-2023 Episodic Other injuries and conditions due to external causes (2 sources) Traumatic AND/OR non-traumatic injury; Translations: [Other injury of unspecified body region, initial encounter] Onset: 2 Episodic Other injuries and conditions due to external causes (20 sources) Traumatic ulcer 07-15-2022 Episodic Other lower respiratory disease (20 sources) Dyspnea 07-26-2019 Episodic Other nervous system disorders (20 sources) Neuropathy 04-30-2019 Chronic Other non-traumatic joint disorders (2 sources) Pain in left knee; Translations: [Pain of joint of knee] Onset: 1 Episodic Other non-traumatic joint disorders (20 sources) Knee pain 05-13-2021 Episodic Other skin disorders (1 source) Symptom of skin and integumentary tissue; Translations: [Other skin changes] Onset: 2 Episodic Pulmonary heart disease (20 sources) Pulmonary hypertension; Translations: [Pulmonary hypertension, unspecified] 01-06-2021 Chronic Retinal detachments; defects; vascular occlusion; and retinopathy (3 sources) 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 Rheumatoid arthritis and related disease (20 sources) Arthropathy of lumbar facet joint 09-10-2020 Chronic Spondylosis; intervertebral disc disorders; other back problems (20 sources) Degeneration of lumbar intervertebral disc; Translations: [Lumbar post-laminectomy syndrome] 09-10-2020 Chronic Spondylosis; intervertebral disc disorders; other back problems (20 sources) Chronic low back pain; Translations: [Spinal stenosis of lumbar region] 09-10-2020 Episodic Superficial injury; contusion (20 sources) Contusion of scalp; Translations: [Contusion of scalp, initial encounter] Onset: 2 Episodic Thyroid disorders (20 sources) Acquired hypothyroidism; Translations: [Hypothyroidism] Onset: 3 02-03-2020 Chronic Unclassified (18 sources) Patient encounter status 01-12-2023 Unclassified (8 sources) Liver function test increased 02-20-2025 Past or Other Problems Problem Classification Problem Date Documented Da te Episodic/Chronic Cardiac dysrhythmias (1 source) Palpitations; Translations: [Palpitations] Onset: 04-18-2025 Episodic Heart valve disorders (1 source) Cardiac murmur, unspecified; Translations: [Cardiac murmur, unspecified] Onset: 04-18-2025 Episodic Mycoses (16 sources) Candidiasis; Translations: [Candidiasis, unspecified] Onset: 10-21-2024 01-12-2024 Episodic Skin and subcutaneous tissue infections (20 sources) Cellulitis of thumb ; Translations: [Abscess of neck] Onset: 02-20-2025 11-24-2022 Episodic Results Test Name Value Interpretation Reference Range Facility CRPon 08-12-2025 C-REACTIVE PROT 3.90 mg/L High 0.0-3.0 [facility] Comment on above: Order Comment: DENG Mcelroy ADD CRP TO 08-11-25 BLOOD WORK Performed By: #### L 500.2500, L501.6710, L100.0100, L501.1400 #### [facility] [address] [place], [address] Basic Metabolic Profile (BMP )on 08-11-2025 BUN/CRE 22.6 RATIO High 10-20 [facility] Comment on above: Performed By: #### L 500.2500, L501.6710, L100.0100, L501.1400 #### [facility] [address] [place], [address] Calcium [Mass/Vol] 9.3 mg/dL Normal 7.6-11.0 [facility] Comment on above: Performed By: #### L 500.2500, L501.6710, L100.0100, L501.1400 #### [facility] [address] [place], [address] Chloride [Moles/Vol] 107 mmol/L Normal 98-108 [facility] Comment on above: Performed By: #### L 500.2500, [id number], L100.0100, [id number] #### [facility] [address] [place], [address] CO2 [Moles/Vol] 25.6 mmol/L Normal 21.0-32.0 [facility] Comment on above: Performed By: #### L 500.2500, L501.6710, L100.0100, [id number] #### [facility] [address] [place], [address] Creatinine [Mass/Vol] 0.99 mg/dL Normal 0.70-1.20 [facility] Comment on above: Performed By: #### L 500.2500, [id number], L100.0100, [id number] #### [facility] [address] [place], [address] GAP 10 Normal 5-15 [facility] Comment on above: Performed By: #### L 500.2500, L501.6710, L100.0100, L501.1400 #### [facility] [address] [place], [address] GFR/1.73 sq M.predicted among non-blacks MDRD (S/P/Bld) [Vol rate/Area] 56 mL/min/{1.73_m2} Low >60 [facility] Comment on above: Result Comment: mL/m in/1.73m2 CKD-EPI Creatinine Equation (2020) Performed By: #### L 500.2500, L501.6710, L100.0100, L501.1400 #### [facility] [address] [place], [address] Glucose [Mass/Vol] 71 mg/dL Normal 70-99 [facility] Comment on above: Performed By: #### L 500.2500, L501.6710, L100.0100, [id number] #### [facility] [address] [place], [address] Potassium [Moles/Vol] 4.2 mmol/L Normal 3.3-5.1 [facility] Comment on above: Performed By: #### L 500.2500, [id number], L100.0100, L501.1400 #### [facility] [address] [place], [address] Sodium [Moles/Vol] 143 mmol/L Normal 133-145 [facility] Comment on above: Performed By: #### L 500.2500, [id number], L100.0100, [id number] #### [facility] [address] [place], [address] Urea nitrogen [Mass/Vol] 22 mg/dL High 4-19 [facility] Comment on above: Performed By: #### L 500.2500, L501.6710, L100.0100, L501.1400 #### [facility] [address] [place], [address] CBC W/Diff, Automatedon 11-0 3-2024 Absolute Lymph 1.57 X10 3/uL Normal 0.83-4.51 [facility] Comment on above: Performed By: #### L 500.2500, L501.6710, L100.0100, L501.1400 #### [facility] [address] [place], [address] Absolute Neut 3.6 X10 3/uL Normal 2.0-7.7 [facility] Comment on above: Performed By: #### L 500.2500, [id number], L100.0100, L501.1400 #### [facility] [address] [place], [address] Basophils/100 WBC (Bld) 0.9 % Normal 0-1 [facility] Comment on above: Performed By: #### L 500.2500, [id number], L100.0100, [id number] #### [facility] [address] [place], [address] Eosinophils/100 WBC (Bld) 1.0 % Normal 0-5 [facility] Comment on above: Performed By: #### L 500.2500, L501.6710, L100.0100, L501.1400 #### [facility] [address] [place], [address] Erythrocyte distribution width (RBC) [Ratio] 14.3 % Normal 11.6-14.6 [facility] Comment on above: Performed By: #### L 500.2500, L501.6710, L100.0100, L501.1400 #### [facility] [address] [place], [address] Hematocrit (Bld) [Volume fraction] 28.8 % Low 37-47 [facility] Comment on above: Performed By: #### L 500.2500, L501.6710, L100.0100, L501.1400 #### [facility] [address] [place], [address] Hemoglobin (Bld) [Mass/Vol] 8.9 g/dL Low 12.0-15.0 [facility] Comment on above: Performed By: #### L 500.2500, [id number], L100.0100, L501.1400 #### [facility] [address] [place], [address] IG% 0.300 Normal 0.0-0.9 [facility] Comment on above: Result Comment: IG% - Immature Granulocytes (promyelocytes, myelocytes and metamyelocytes) > 1% indicates that a LEFT SHIFT is Present. Performed By: #### L 500.2500, L501.6710, L100.0100, L501.1400 #### [facility] [address] [place], [address] Lymphocytes/100 WBC (Bld) 26.9 % Normal 19-41 [facility] Comment on above: Performed By: #### L 500.2500, [id number], L100.0100, L501.1400 #### [facility] [address] [place], [address] MCH (RBC) [Entitic mass] 30.9 pg Normal 27.0-32.0 [facility] Comment on above: Performed By: #### L 500.2500, L501.6710, L100.0100, L501.1400 #### [facility] [address] [place], [address] MCHC (RBC) [Mass/Vol] 30.9 g/dL Low 32-36 [facility] Comment on above: Performed By: #### L 500.2500, L501.6710, L100.0100, L501.1400 #### [facility] [address] [place], [address] MCV (RBC) [Entitic vol] 100.0 fL High 81-99 [facility] Comment on above: Performed By: #### L 500.2500, L501.6710, L100.0100, L501.1400 #### [facility] [address] [place], [address] Monocytes/100 WBC (Bld) 8.9 % Normal 0-10 [facility] Comment on above: Performed By: #### L 500.2500, L501.6710, L100.0100, L501.1400 #### [facility] [address] [place], [address] Neutrophils/100 WBC (Bld) 62.0 % Normal 47-70 [facility] Comment on above: Performed By: #### L 500.2500, L501.6710, L100.0100, L501.1400 #### [facility] [address] [place], [address] Nucleated RBC (Bld) [#/Vol] 0 10*3/uL Normal 0-5 [facility] Comment on above: Performed By: #### L 500.2500, L501.6710, L100.0100, L501.1400 #### [facility] [address] [place], [address] Platelet mean volume (Bld) [Entitic vol] 9.4 fL Normal 6.2-12.0 [facility] Comment on above: Performed By: #### L 500.2500, L501.6710, L100.0100, L501.1400 #### [facility] [address] [place], [address] Platelets (Bld) [#/Vol] 163 10*3/uL Normal 150-450 [facility] Comment on above: Performed By: #### L 500.2500, L501.6710, L100.0100, L501.1400 #### [facility] [address] [place], [address] RBC (Bld) [#/Vol] 2.88 10*6/uL Low 4.2-5.4 [facility] Comment on above: Performed By: #### L 500.2500, L501.6710, L100.0100, L501.1400 #### [facility] [address] [place], [address] RDW SD 51.6 fl High 35.1-43.9 [facility] Comment on above: Performed By: #### L 500.2500, L501.6710, L100.0100, L501.1400 #### [facility] [address] [place], [address] WBC (Bld) [#/Vol] 5.8 10*3/uL Normal 4.4-11.0 [facility] Comment on above: Performed By: #### L 500.2500, L501.6710, L100.0100, L501.1400 #### [facility] [address] [place], [address] Uric Acidon 08-11-2025 URIC 7.3 mg/dL High 2.6-6.0 [facility] Comment on above: Result Comment: The drugs N-Acetylcysteine and Metamizole may falsely depress this assay. Performed By: #### L 500.2500, L501.6710, L100.0100, L501.1400 #### [facility] [address] [place], [address] Basic Metabolic Profile (BMP )on 06-23-2025 BUN/CRE 14.3 RATIO Normal 10-20 [facility] Comment on above: Order Comment: 162 Performed By: #### L 500.2500 #### [facility] [address] [place], [address] Calcium [Mass/Vol] 9.1 mg/dL Normal 7.6-11.0 [facility] Comment on above: Order Comment: 162 Performed By: #### L 500.2500 #### [facility] [address] [place], [address] Chloride [Moles/Vol] 106 mmol/L Normal 98-108 [facility] Comment on above: Order Comment: 162 Performed By: #### L 500.2500 #### [facility] [address] [place], [address] CO2 [Moles/Vol] 26.1 mmol/L Normal 21.0-32.0 [facility] Comment on above: Order Comment: 162 Performed By: #### L 500.2500 #### [facility] [address] [place], [address] Creatinine [Mass/Vol] 0.95 mg/dL Normal 0.70-1.20 [facility] Comment on above: Order Comment: 162 Performed By: #### L 500.2500 #### [facility] [address] [place], [address] GAP 11 Normal 5-15 [facility] Comment on above: Order Comment: 162 Performed By: #### L 500.2500 #### [facility] [address] [place], [address] GFR/1.73 sq M.predicted among non-blacks MDRD (S/P/Bld) [Vol rate/Area] 59 mL/min/{1.73_m2} Low >60 [facility] Comment on above: Order Comment: 162 Result Comment: mL/m in/1.73m2 CKD-EPI Creatinine Equation (2020) Performed By: #### L 500.2500 #### [facility] [address] [place], [address] Glucose [Mass/Vol] 105 mg/dL High 70-99 [facility] Comment on above: Order Comment: 162 Performed By: #### L 500.2500 #### [facility] [address] [place], [address] Potassium [Moles/Vol] 4.2 mmol/L Normal 3.3-5.1 [facility] Comment on above: Order Comment: 162 Performed By: #### L 500.2500 #### [facility] [address] [place], [address] Sodium [Moles/Vol] 143 mmol/L Normal 133-145 [facility] Comment on above: Order Comment: 162 Performed By: #### L 500.2500 #### [facility] [facility] [address] [place], [address] Urea nitrogen [Mass/Vol] 14 mg/dL Normal 4-19 [facility] Comment on above: Order Comment: 162 Performed By: #### L 500.2500 #### [facility] [address] [place], [address] .Auto Diffon 05-26-2025 Basophil, Absolute 0.0 10 3/mcL Normal 0.0-0.3 [facility] Comment on above: Performed By: #### A 1C, FT4, ANEU, GFR, LIPID, CBC, CMP, TSH, ADIFF #### [address] [place], [place] [address] Basophils/100 WBC (Bld) 0.9 % Normal 0.0-2.5 [facility] Comment on above: Performed By: #### A 1C, FT4, ANEU, GFR, LIPID, CBC, CMP, TSH, ADIFF #### [address] [address] Eosinophil, Absolute 0.1 10 3/mcL Normal 0.0-0.7 [facility] Comment on above: Performed By: #### A 1C, FT4, ANEU, GFR, LIPID, CBC, CMP, TSH, ADIFF #### [address] [address] Eosinophils/100 WBC (Bld) 2.8 % Normal 0.0-6.0 [facility] Comment on above: Performed By: #### A 1C, FT4, ANEU, GFR, LIPID, CBC, CMP, TSH, ADIFF #### [address] [address] Lymphocyte, Absolute 0.9 10 3/mcL Normal 0.9-4.3 [facility] Comment on above: Performed By: #### A 1C, FT4, ANEU, GFR, LIPID, CBC, CMP, TSH, ADIFF #### [address] [address] Lymphocytes/100 WBC (Bld) 18.4 % Low 20.0-40.0 [facility] Comment on above: Performed By: #### A 1C, FT4, ANEU, GFR, LIPID, CBC, CMP, TSH, ADIFF #### [address] [address] Monocyte, Absolute 0.4 10 3/mcL Normal 0.1-1.4 [facility] Comment on above: Performed By: #### A 1C, FT4, ANEU, GFR, LIPID, CBC, CMP, TSH, ADIFF #### [address] [address] Monocytes/100 WBC (Bld) 7.8 % Normal 2.0-13.0 [facility] Comment on above: Performed By: #### A 1C, FT4, ANEU, GFR, LIPID, CBC, CMP, TSH, ADIFF #### [address] [address] Neutrophils/100 WBC (Bld) 70.1 % Normal 50.0-75.0 [facility] Comment on above: Performed By: #### A 1C, FT4, ANEU, GFR, LIPID, CBC, CMP, TSH, ADIFF #### [address] [place], [place] [address] .GFRon 05-26-2025 Estimated Glomerular Filtration Rate 62 ml/min/1.73sqm Normal [facility] Comment on above: Result Comment: Stages of Chronic Kidney Disease (CKD) Stage Description eGFR(ml/min/1.73 sq.m.) CKD 1 Normal kidney function or >=90 normal kindney function with possible kidney damage (ex. Proteinuria) CKD 2 Kidney damage with mild loss 60-89 of kidney function CKD 3a Mild to moderate loss of kidney 45-59 function CKD 3b Moderate to severe loss of 30-44 of kindey function CKD 4 Severe loss of kidney function 15-29 CKD 5 Kidney failure <15 Note: (go live 2024) the eGFR calculation was updated to the 2020 CKD-EPI creatinine equation without a race factor to calculate the eGFR results. Performed By: #### A 1C, FT4, ANEU, GFR, LIPID, CBC, CMP, TSH, ADIFF #### [address] [place], [place] [address] .NEUABSon 05-26-2025 Neutrophil, Absolute 3.5 10 3/mcL Normal 2.3-8.1 [facility] Comment on above: Performed By: #### A 1C, FT4, ANEU, GFR, LIPID, CBC, CMP, TSH, ADIFF #### [address] [place], [place] [address] A1Con 05-26-2025 Glucose [Mass/Vol] 117 mg/dL Normal [facility] Comment on above: Result Comment: Eugenia mated Average Glucose calculated by equation ((28.7xA1C)-46.7) Estimated average glucose (eAG) is a calculated value from Hemoglobin A1C and is national account representative of the average blood glucose level in the last 2-3 month period. Normal range: less than 114 mg/dL Performed By: #### A 1C, FT4, ANEU, GFR, LIPID, CBC, CMP, TSH, ADIFF #### [address] [address] HbA1c (Bld) [Mass fraction] 5.7 % Normal 4.3-6.4 [facility] Comment on above: Performed By: #### A 1C, FT4, ANEU, GFR, LIPID, CBC, CMP, TSH, ADIFF #### [place] [id number] CBCon 05-26-2025 Erythrocyte distribution width (RBC) [Ratio] 19.4 % High 11.5-15.5 [facility] Comment on above: Performed By: #### A 1C, FT4, ANEU, GFR, LIPID, CBC, CMP, TSH, ADIFF #### [place] [id number] Hematocrit (Bld) [Volume fraction] 31.5 % Low 34.0-46.0 [facility] Comment on above: Performed By: #### A 1C, FT4, ANEU, GFR, LIPID, CBC, CMP, TSH, ADIFF #### [address] [address] Hgb 10.3 G/dL Low 12.0-16.0 [facility] Comment on above: Performed By: #### A 1C, FT4, ANEU, GFR, LIPID, CBC, CMP, TSH, ADIFF #### [address] [address] MCH (RBC) [Entitic mass] 30.1 pg Normal 27.0-33.0 [facility] Comment on above: Performed By: #### A 1C, FT4, ANEU, GFR, LIPID, CBC, CMP, TSH, ADIFF #### [address] [address] MCHC 32.6 G/dL Normal 32.0-36.0 [facility] Comment on above: Performed By: #### A 1C, FT4, ANEU, GFR, LIPID, CBC, CMP, TSH, ADIFF #### [place] [phone] MCV (RBC) [Entitic vol] 92.4 fL Normal 80.0-99.0 [facility] Comment on above: Performed By: #### A 1C, FT4, ANEU, GFR, LIPID, CBC, CMP, TSH, ADIFF #### [address] [address] Platelet 146 10 3/mcL Low 150-450 [facility] Comment on above: Performed By: #### A 1C, FT4, ANEU, GFR, LIPID, CBC, CMP, TSH, ADIFF #### [address] [address] Platelet mean volume (Bld) [Entitic vol] 8.0 fL Normal 6.6-10.5 [facility] Comment on above: Performed By: #### A 1C, FT4, ANEU, GFR, LIPID, CBC, CMP, TSH, ADIFF #### [address] [address] RBC 3.41 10 6/mcL Low 4.10-5.30 [facility] Comment on above: Performed By: #### A 1C, FT4, ANEU, GFR, LIPID, CBC, CMP, TSH, ADIFF #### [address] [address] WBC 4.9 10 3/mcL Normal 4.5-10.8 [facility] Comment on above: Performed By: #### A 1C, FT4, ANEU, GFR, LIPID, CBC, CMP, TSH, ADIFF #### [address] [address] CMPon 05-26-2025 Albumin Level 3.5 G/dL Normal 3.4-4.8 [facility] Comment on above: Performed By: #### A 1C, FT4, ANEU, GFR, LIPID, CBC, CMP, TSH, ADIFF #### [address] [address] Albumin/Globulin [Mass ratio] 1.1 {ratio} Normal 1.1-2.5 [facility] Comment on above: Performed By: #### A 1C, FT4, ANEU, GFR, LIPID, CBC, CMP, TSH, ADIFF #### [place] [address] ALP [Catalytic activity/Vol] 53 U/L Normal 40-135 [facility] Comment on above: Performed By: #### A 1C, FT4, ANEU, GFR, LIPID, CBC, CMP, TSH, ADIFF #### [place] [address] ALT [Catalytic activity/Vol] 10 U/L Low 14-59 [facility] Comment on above: Performed By: #### A 1C, FT4, ANEU, GFR, LIPID, CBC, CMP, TSH, ADIFF #### [place] [address] AST [Catalytic activity/Vol] 17 U/L Normal 10-40 [facility] Comment on above: Performed By: #### A 1C, FT4, ANEU, GFR, LIPID, CBC, CMP, TSH, ADIFF #### [place] [address] Bili Total 0.5 mg/dL Normal 0.2-1.0 [facility] Comment on above: Result Comment: Use of this assay is not recommended for patients undergoing treatment with eltrombopag due to the potential for falsely elevated results. Performed By: #### A 1C, FT4, ANEU, GFR, LIPID, CBC, CMP, TSH, ADIFF #### [place] [address] BUN/Creatinine Ratio 18 ratio Normal 7-27 [facility] Comment on above: Performed By: #### A 1C, FT4, ANEU, GFR, LIPID, CBC, CMP, TSH, ADIFF #### [place] [address] Calcium [Mass/Vol] 9.1 mg/dL Normal 8.4-10.2 [facility] Comment on above: Performed By: #### A 1C, FT4, ANEU, GFR, LIPID, CBC, CMP, TSH, ADIFF #### [address] [address] Chloride [Moles/Vol] 103 mmol/L Normal 98-107 [facility] Comment on above: Performed By: #### A 1C, FT4, ANEU, GFR, LIPID, CBC, CMP, TSH, ADIFF #### [address] [address] CO2 [Moles/Vol] 30 mmol/L Normal 23-31 [facility] Comment on above: Performed By: #### A 1C, FT4, ANEU, GFR, LIPID, CBC, CMP, TSH, ADIFF #### [address] [address] Creatinine [Mass/Vol] 0.92 mg/dL Normal 0.51-0.95 [facility] Comment on above: Performed By: #### A 1C, FT4, ANEU, GFR, LIPID, CBC, CMP, TSH, ADIFF #### [place] [address] Electrolyte Balance 7.0 mEq/L Normal 4.0-15.0 [facility] Comment on above: Performed By: #### A 1C, FT4, ANEU, GFR, LIPID, CBC, CMP, TSH, ADIFF #### [address] [address] Globulin 3.3 G/dL Normal 2.7-4.4 [facility] Comment on above: Performed By: #### A 1C, FT4, ANEU, GFR, LIPID, CBC, CMP, TSH, ADIFF #### [address] [address] Glucose [Mass/Vol] 110 mg/dL Normal 83-110 [facility] Comment on above: Performed By: #### A 1C, FT4, ANEU, GFR, LIPID, CBC, CMP, TSH, ADIFF #### [place] [id number] Potassium [Moles/Vol] 3.4 mmol/L Low 3.5-5.1 [facility] Comment on above: Performed By: #### A 1C, FT4, ANEU, GFR, LIPID, CBC, CMP, TSH, ADIFF #### [address] [place], [place] [address] Sodium [Moles/Vol] 140 mmol/L Normal 136-145 [facility] Comment on above: Performed By: #### A 1C, FT4, ANEU, GFR, LIPID, CBC, CMP, TSH, ADIFF #### [address] [place], [place] [address] Total Protein 6.8 G/dL Normal 6.4-8.2 [facility] Comment on above: Performed By: #### A 1C, FT4, ANEU, GFR, LIPID, CBC, CMP, TSH, ADIFF #### [address] [place], [place] [address] Urea nitrogen [Mass/Vol] 17 mg/dL Normal 7-18 [facility] Comment on above: Performed By: #### A 1C, FT4, ANEU, GFR, LIPID, CBC, CMP, TSH, ADIFF #### [address] [place], [place] [address] FT4on 05-26-2025 Free T4 [Mass/Vol] 0.82 ng/dL Normal 0.76-1.46 [facility] Comment on above: Performed By: #### A 1C, FT4, ANEU, GFR, LIPID, CBC, CMP, TSH, ADIFF #### [address] [address] LABORATORYOrdered By: SYSTEM SYSTEM on 05-26-2025 Albumin BCP dye [Mass/Vol] 3.5 G/dL Normal 3.4 - 4.8 G/dL AO ADM SS Albumin/Globulin [Mass ratio] 1.1 {ratio} Normal 1.1 - 2.5 ratio AO ADM SS ALP [Catalytic activity/Vol] 53 U/L Normal 40 - 135 U/L AO ADM SS ALT With P-5'-P [Catalytic activity/Vol] 10 U/L Low 14 - 59 U/L AO ADM SS AST With P-5'-P [Catalytic activity/Vol] 17 U/L Normal 10 - 40 U/L AO ADM SS Basophils (Bld) [#/Vol] 0.0 103/mcL Normal 0.0 - 0.3 10^3/mcL AO Workflow SS Basophils/100 WBC (Bld) 0.9 % Normal 0.0 - 2.5 % AO Workflow SS Bilirubin [Mass/Vol] 0.5 mg/dL Normal 0.2 - 1 .0 mg/dL AO ADM SS Comment on above: Interpretive Data: U se of this assay is not recommended for patients undergoing treatment with eltrombopag due to the potential for falsely elevated results. Calcium [Mass/Vol] 9.1 mg/dL Normal 8.4 - 10. 2 mg/dL AO ADM SS Chloride [Moles/Vol] 103 mmol/L Normal 98 - 10 7 mmol/L AO ADM SS CO2 [Moles/Vol] 30 mmol/L Normal 23 - 31 mmol/L AO ADM SS Creatinine [Mass/Vol] 0.92 mg/dL Normal 0.51 - 0.95 mg/dL AO ADM SS Electrolyte Balance 7.0 mEq/L Normal 4.0 - 15 .0 mEq/L AO ADM SS Eosinophil, Absolute 0.1 103/mcL Normal 0.0 - 0 .7 10^3/mcL AO Workflow SS Eosinophils/100 WBC (Bld) 2.8 % Normal 0.0 - 6.0 % AO Workflow SS Erythrocyte distribution width (RBC) [Ratio] 19.4 % High 11.5 - 15.5 % AO Workflow SS Estimated Glomerular Filtration Rate 62 ml/min/1.73sqm Invalid Interpretation Code AO Chemistry S Comment on above: Interpretive Data: Stages of Chronic Kidney Disease (CKD) Stage Description eGFR(ml/min/1.73 sq.m.) CKD 1 Normal kidney function or >=90 normal kindney function with possible kidney damage (ex. Proteinuria) CKD 2 Kidney damage with mild loss 60-89 of kidney function CKD 3a Mild to moderate loss of kidney 45-59 function CKD 3b Moderate to severe loss of 30-44 of kindey function CKD 4 Severe loss of kidney function 15-29 CKD 5 Kidney failure <15 Note: (go live 2024) the eGFR calculation was updated to the 2020 CKD-EPI creatinine equation without a race factor to calculate the eGFR results. Free T4 [Mass/Vol] 0.82 ng/dL Normal 0.76 - 1. 46 ng/dL AO ADM SS Globulin 3.3 G/dL Normal 2.7 - 4.4 G/dL AO ADM SS Glucose [Mass/Vol] 110 mg/dL Normal 83 - 110 mg/dL AO ADM SS Glucose [Mass/Vol] 117 mg/dL Invalid Interpretation Code AO Chemistry S Comment on above: Interpretive Data: E stimated average glucose (eAG) is a calculated value from Hemoglobin A1C and is national account representative of the average blood glucose level in the last 2-3 month period. Normal range: less than 114 mg/dL HbA1c (Bld) [Mass fraction] 5.7 % Normal 4.3 - 6.4 % AO ADM SS Hematocrit (Bld) [Volume fraction] 31.5 % Low 34.0 - 46.0 % AO Workflow SS Hemoglobin (Bld) [Mass/Vol] 10.3 G/dL Low 12.0 - 16.0 G/dL AO Workflow SS Lymphocytes (Bld) [#/Vol] 0.9 103/mcL Normal 0.9 - 4.3 10^3/mcL AO Workflow SS Lymphocytes/100 WBC (Bld) 18.4 % Low 20.0 - 40.0 % AO Workflow SS MCH (RBC) [Entitic mass] 30.1 pg Normal 27.0 - 33.0 pg AO Workflow SS MCHC 32.6 G/dL Normal 32.0 - 36.0 G/dL AO Workflow SS MCV (RBC) [Entitic vol] 92.4 fL Normal 80.0 - 99.0 fL AO Workflow SS Monocytes (Bld) [#/Vol] 0.4 103/mcL Normal 0.1 - 1.4 10^3/mcL AO Workflow SS Monocytes/100 WBC (Bld) 7.8 % Normal 2.0 - 13.0 % AO Workflow SS Neutrophils (Bld) [#/Vol] 3.5 103/mcL Normal 2.3 - 8.1 10^3/mcL AO Workflow SS Neutrophils/100 WBC (Bld) 70.1 % Normal 50.0 - 75.0 % AO Workflow SS Platelet mean volume (Bld) [Entitic vol] 8.0 fL Normal 6.6 - 10.5 fL AO Workflow SS Platelets (Bld) [#/Vol] 146 103/mcL Low 150 - 450 10^3/mcL AO Workflow SS Potassium [Moles/Vol] 3.4 mmol/L Low 3.5 - 5.1 mmol/L AO ADM SS Protein [Mass/Vol] 6.8 G/dL Normal 6.4 - 8.2 G/dL AO ADM SS RBC (Bld) [#/Vol] 3.41 106/mcL Low 4.10 - 5.3 0 10^6/mcL AO Workflow SS Sodium [Moles/Vol] 140 mmol/L Normal 136 - 145 mmol/L AO ADM SS TSH Qn 2.31 m[IU]/L Normal 0.36 - 3.74 mcIU/mL AO ADM SS Urea nitrogen [Mass/Vol] 17 mg/dL Normal 7 - 18 mg/dL AO ADM SS Urea nitrogen/Creatinine [Mass ratio] 18 ratio Normal 7 - 27 ratio AO ADM SS WBC (Bld) [#/Vol] 4.9 103/mcL Normal 4.5 - 10.8 10^3/mcL AO Workflow SS LABORATORYOrdered By: Baldomero Pop on 05-26-2025 Cholesterol [Mass/Vol] 104 mg/dL Normal 0 - 200 mg/dL AO ADM SS Comment on above: Interpretive Data: C holesterol Reference Interval: Less than 200 Desirable 200-239 Borderline high risk 240 and above High risk Cholesterol in HDL [Mass/Vol] 41 mg/dL Normal 40 - 60 mg/dL AO ADM SS Cholesterol in LDL [Mass/Vol] 45 mg/dL Normal 0 - 130 mg/dL AO ADM SS Triglyceride [Mass/Vol] 92 mg/dL Normal 0 - 150 mg/dL AO ADM SS Comment on above: Interpretive Data: T riglyceride Reference Interval: Less than 150 Normal 150-199 Borderline high risk 200-499 High risk 500 or higher Very high risk LIPIDon 05-26-2025 Cholesterol [Mass/Vol] 104 mg/dL Normal 0-200 [facility] Comment on above: Result Comment: Chol esterol Reference Interval: Less than 200 Desirable 200-239 Borderline high risk 240 and above High risk Performed By: #### A 1C, FT4, ANEU, GFR, LIPID, CBC, CMP, TSH, ADIFF #### [address] [place], [place] [address] Cholesterol in HDL [Mass/Vol] 41 mg/dL Normal 40-60 [facility] Comment on above: Performed By: #### A 1C, FT4, ANEU, GFR, LIPID, CBC, CMP, TSH, ADIFF #### [address] [address] Cholesterol in LDL [Mass/Vol] 45 mg/dL Normal 0-130 [facility] Comment on above: Performed By: #### A 1C, FT4, ANEU, GFR, LIPID, CBC, CMP, TSH, ADIFF #### [address] [address] Triglyceride [Mass/Vol] 92 mg/dL Normal 0-150 [facility] Comment on above: Result Comment: Trig lyceride Reference Interval: Less than 150 Normal 150-199 Borderline high risk 200-499 High risk 500 or higher Very high risk Performed By: #### A 1C, FT4, ANEU, GFR, LIPID, CBC, CMP, TSH, ADIFF #### [address] [address] TSHon 05-26-2025 TSH Qn 2.31 m[IU]/L Normal 0.36-3.74 [facility] Comment on above: Performed By: #### A 1C, FT4, ANEU, GFR, LIPID, CBC, CMP, TSH, ADIFF #### [address] [address] .Auto Diffon 05-06-2025 Basophil, Absolute 0.1 10 3/mcL Normal 0.0-0.3 [facility] Comment on above: Performed By: #### C BC, ADIFF, ANEU, MORPH, CMP, GFR ####[address] [address] Basophils/100 WBC (Bld) 0.9 % Normal 0.0-2.5 [facility] Comment on above: Performed By: #### C BC, ADIFF, ANEU, MORPH, CMP, GFR ####[address] [address] Eosinophil, Absolute 0.1 10 3/mcL Normal 0.0-0.7 [facility] Comment on above: Performed By: #### C BC, ADIFF, ANEU, MORPH, CMP, GFR ####[address] [address] Eosinophils/100 WBC (Bld) 2.3 % Normal 0.0-6.0 [facility] Comment on above: Performed By: #### C BC, ADIFF, ANEU, MORPH, CMP, GFR ####[address] [place], [place] [address] Lymphocyte, Absolute 1.4 10 3/mcL Normal 0.9-4.3 [facility] Comment on above: Performed By: #### C BC, ADIFF, ANEU, MORPH, CMP, GFR ####[address] [place], [place] [address] Lymphocytes/100 WBC (Bld) 23.1 % Normal 20.0-40.0 [facility] Comment on above: Performed By: #### C BC, ADIFF, ANEU, MORPH, CMP, GFR ####[address] [place], [place] [address] Monocyte, Absolute 0.5 10 3/mcL Normal 0.1-1.4 [facility] Comment on above: Performed By: #### C BC, ADIFF, ANEU, MORPH, CMP, GFR ####[address] [place], [place] [address] Monocytes/100 WBC (Bld) 7.4 % Normal 2.0-13.0 [facility] Comment on above: Performed By: #### C BC, ADIFF, ANEU, MORPH, CMP, GFR ####[address] [place], [place] [address] Neutrophils/100 WBC (Bld) 66.3 % Normal 50.0-75.0 [facility] Comment on above: Performed By: #### C BC, ADIFF, ANEU, MORPH, CMP, GFR ####[address] [place], [place] [address] .GFRon 05-06-2025 Estimated Glomerular Filtration Rate 61 ml/min/1.73sqm Normal [facility] Comment on above: Result Comment: Stages of Chronic Kidney Disease (CKD) Stage Description eGFR(ml/min/1.73 sq.m.) CKD 1 Normal kidney function or >=90 normal kindney function with possible kidney damage (ex. Proteinuria) CKD 2 Kidney damage with mild loss 60-89 of kidney function CKD 3a Mild to moderate loss of kidney 45-59 function CKD 3b Moderate to severe loss of 30-44 of kindey function CKD 4 Severe loss of kidney function 15-29 CKD 5 Kidney failure <15 Note: (go live 2024) the eGFR calculation was updated to the 2020 CKD-EPI creatinine equation without a race factor to calculate the eGFR results. Performed By: #### C BC, ADIFF, ANEU, MORPH, CMP, GFR ####[address] [place], [place] [address] .Morphon 05-06-2025 Platelet Estimate Normal Normal [facility] Comment on above: Performed By: #### C BC, ADIFF, ANEU, MORPH, CMP, GFR ####[address] [place] [id number] .NEUABSon 05-06-2025 Neutrophil, Absolute 4.1 10 3/mcL Normal 2.3-8.1 [facility] Comment on above: Performed By: #### C BC, ADIFF, ANEU, MORPH, CMP, GFR ####[address] [place], [place] [address] CBCon 05-06-2025 Erythrocyte distribution width (RBC) [Ratio] 20.3 % High 11.5-15.5 [facility] Comment on above: Performed By: #### C BC, ADIFF, ANEU, MORPH, CMP, GFR ####[address] [place] [address] Hematocrit (Bld) [Volume fraction] 31.3 % Low 34.0-46.0 [facility] Comment on above: Performed By: #### C BC, ADIFF, ANEU, MORPH, CMP, GFR ####[address] [place] [id number] Hgb 10.2 G/dL Low 12.0-16.0 [facility] Comment on above: Performed By: #### C BC, ADIFF, ANEU, MORPH, CMP, GFR ####[address] [place] [id number] MCH (RBC) [Entitic mass] 29.3 pg Normal 27.0-33.0 [facility] Comment on above: Performed By: #### C BC, ADIFF, ANEU, MORPH, CMP, GFR ####[address] [place], [place] [address] MCHC 32.6 G/dL Normal 32.0-36.0 [facility] Comment on above: Performed By: #### C BC, ADIFF, ANEU, MORPH, CMP, GFR ####[address] [place], [place] [address] MCV (RBC) [Entitic vol] 90.1 fL Normal 80.0-99.0 [facility] Comment on above: Performed By: #### C BC, ADIFF, ANEU, MORPH, CMP, GFR ####[address] [place], [place] [address] Platelet 194 10 3/mcL Normal 150-450 [facility] Comment on above: Performed By: #### C BC, ADIFF, ANEU, MORPH, CMP, GFR ####[address] [place], [place] [address] Platelet mean volume (Bld) [Entitic vol] 7.3 fL Normal 6.6-10.5 [facility] Comment on above: Performed By: #### C BC, ADIFF, ANEU, MORPH, CMP, GFR ####[address] [place], [place] [address] RBC 3.47 10 6/mcL Low 4.10-5.30 [facility] Comment on above: Performed By: #### C BC, ADIFF, ANEU, MORPH, CMP, GFR ####[address] [place], [place] [address] WBC 6.2 10 3/mcL Normal 4.5-10.8 [facility] Comment on above: Performed By: #### C BC, ADIFF, ANEU, MORPH, CMP, GFR ####[address] [place], [place] [address] CMPon 05-06-2025 Albumin Level 3.6 G/dL Normal 3.4-4.8 [facility] Comment on above: Performed By: #### C BC, ADIFF, ANEU, MORPH, CMP, GFR ####[place] [phone] Albumin/Globulin [Mass ratio] 1.1 {ratio} Normal 1.1-2.5 [facility] Comment on above: Performed By: #### C BC, ADIFF, ANEU, MORPH, CMP, GFR ####[place] [id number] ALP [Catalytic activity/Vol] 61 U/L Normal 40-135 [facility] Comment on above: Performed By: #### C BC, ADIFF, ANEU, MORPH, CMP, GFR ####[place] [address] [place] [address] ALT [Catalytic activity/Vol] 16 U/L Normal 14-59 [facility] Comment on above: Performed By: #### C BC, ADIFF, ANEU, MORPH, CMP, GFR ####[place] [address] AST [Catalytic activity/Vol] 19 U/L Normal 10-40 [facility] Comment on above: Performed By: #### C BC, ADIFF, ANEU, MORPH, CMP, GFR ####[place] [phone] Bili Total 0.4 mg/dL Normal 0.2-1.0 [facility] Comment on above: Result Comment: Use of this assay is not recommended for patients undergoing treatment with eltrombopag due to the potential for falsely elevated results. Performed By: #### C BC, ADIFF, ANEU, MORPH, CMP, GFR ####[place] [id number] BUN/Creatinine Ratio 15 ratio Normal 7-27 [facility] Comment on above: Performed By: #### C BC, ADIFF, ANEU, MORPH, CMP, GFR ####[place] [id number] [place] [id number] Calcium [Mass/Vol] 9.4 mg/dL Normal 8.4-10.2 [facility] Comment on above: Performed By: #### C BC, ADIFF, ANEU, MORPH, CMP, GFR ####[address] [place], [place] [address] Chloride [Moles/Vol] 103 mmol/L Normal 98-107 [facility] Comment on above: Performed By: #### C BC, ADIFF, ANEU, MORPH, CMP, GFR ####[id number] [place], [place] [address] CO2 [Moles/Vol] 28 mmol/L Normal 23-31 [facility] Comment on above: Performed By: #### C BC, ADIFF, ANEU, MORPH, CMP, GFR ####[address] [place], [place] [address] Creatinine [Mass/Vol] 0.93 mg/dL Normal 0.51-0.95 [facility] Comment on above: Performed By: #### C BC, ADIFF, ANEU, MORPH, CMP, GFR ####[address] [address] Electrolyte Balance 11.0 mEq/L Normal 4.0-15.0 [facility] Comment on above: Performed By: #### C BC, ADIFF, ANEU, MORPH, CMP, GFR ####[id number] [place], [place] [address] Globulin 3.4 G/dL Normal 2.7-4.4 [facility] Comment on above: Performed By: #### C BC, ADIFF, ANEU, MORPH, CMP, GFR ####[address] [place], [place] [address] Glucose [Mass/Vol] 159 mg/dL High 83-110 [facility] Comment on above: Performed By: #### C BC, ADIFF, ANEU, MORPH, CMP, GFR ####[id number] [place], [place] [address] Potassium [Moles/Vol] 3.5 mmol/L Normal 3.5-5.1 [facility] Comment on above: Performed By: #### C BC, ADIFF, ANEU, MORPH, CMP, GFR ####[facility] [place], [place] [address] Sodium [Moles/Vol] 142 mmol/L Normal 136-145 [facility] Comment on above: Performed By: #### C BC, ADIFF, ANEU, MORPH, CMP, GFR ####[address] [place], [place] [address] Total Protein 7.0 G/dL Normal 6.4-8.2 [facility] Comment on above: Performed By: #### C BC, ADIFF, ANEU, MORPH, CMP, GFR ####[facility] [place], [place] [address] Urea nitrogen [Mass/Vol] 14 mg/dL Normal 7-18 [facility] Comment on above: Performed By: #### C BC, ADIFF, ANEU, MORPH, CMP, GFR ####[facility] [place], [place] [address] LABORATORYOrdered By: SYSTEM SYSTEM on 05-06-2025 Albumin BCP dye [Mass/Vol] 3.6 G/dL Normal 3.4 - 4.8 G/dL AO ADM SS Albumin/Globulin [Mass ratio] 1.1 {ratio} Normal 1.1 - 2.5 ratio AO ADM SS ALP [Catalytic activity/Vol] 61 U/L Normal 40 - 135 U/L AO ADM SS ALT With P-5'-P [Catalytic activity/Vol] 16 U/L Normal 14 - 59 U/L AO ADM SS AST With P-5'-P [Catalytic activity/Vol] 19 U/L Normal 10 - 40 U/L AO ADM SS Basophils (Bld) [#/Vol] 0.1 103/mcL Normal 0.0 - 0.3 10^3/mcL AO Workflow SS Basophils/100 WBC (Bld) 0.9 % Normal 0.0 - 2.5 % AO Workflow SS Bilirubin [Mass/Vol] 0.4 mg/dL Normal 0.2 - 1 .0 mg/dL AO ADM SS Comment on above: Interpretive Data: U se of this assay is not recommended for patients undergoing treatment with eltrombopag due to the potential for falsely elevated results. Calcium [Mass/Vol] 9.4 mg/dL Normal 8.4 - 10. 2 mg/dL AO ADM SS Chloride [Moles/Vol] 103 mmol/L Normal 98 - 10 7 mmol/L AO ADM SS CO2 [Moles/Vol] 28 mmol/L Normal 23 - 31 mmol/L AO ADM SS Creatinine [Mass/Vol] 0.93 mg/dL Normal 0.51 - 0.95 mg/dL AO ADM SS Electrolyte Balance 11.0 mEq/L Normal 4.0 - 15 .0 mEq/L AO ADM SS Eosinophil, Absolute 0.1 103/mcL Normal 0.0 - 0 .7 10^3/mcL AO Workflow SS Eosinophils/100 WBC (Bld) 2.3 % Normal 0.0 - 6.0 % AO Workflow SS Erythrocyte distribution width (RBC) [Ratio] 20.3 % High 11.5 - 15.5 % AO Workflow SS Estimated Glomerular Filtration Rate 61 ml/min/1.73sqm Invalid Interpretation Code AO Chemistry S Comment on above: Interpretive Data: Stages of Chronic Kidney Disease (CKD) Stage Description eGFR(ml/min/1.73 sq.m.) CKD 1 Normal kidney function or >=90 normal kindney function with possible kidney damage (ex. Proteinuria) CKD 2 Kidney damage with mild loss 60-89 of kidney function CKD 3a Mild to moderate loss of kidney 45-59 function CKD 3b Moderate to severe loss of 30-44 of kindey function CKD 4 Severe loss of kidney function 15-29 CKD 5 Kidney failure <15 Note: (go live 2024) the eGFR calculation was updated to the 2020 CKD-EPI creatinine equation without a race factor to calculate the eGFR results. Globulin 3.4 G/dL Normal 2.7 - 4.4 G/dL AO ADM SS Glucose [Mass/Vol] 159 mg/dL High 83 - 110 mg/dL AO ADM SS Hematocrit (Bld) [Volume fraction] 31.3 % Low 34.0 - 46.0 % AO Workflow SS Hemoglobin (Bld) [Mass/Vol] 10.2 G/dL Low 12.0 - 16.0 G/dL AO Workflow SS Lymphocytes (Bld) [#/Vol] 1.4 103/mcL Normal 0.9 - 4.3 10^3/mcL AO Workflow SS Lymphocytes/100 WBC (Bld) 23.1 % Normal 20.0 - 40.0 % AO Workflow SS MCH (RBC) [Entitic mass] 29.3 pg Normal 27.0 - 33.0 pg AO Workflow SS MCHC 32.6 G/dL Normal 32.0 - 36.0 G/dL AO Workflow SS MCV (RBC) [Entitic vol] 90.1 fL Normal 80.0 - 99.0 fL AO Workflow SS Monocytes (Bld) [#/Vol] 0.5 103/mcL Normal 0.1 - 1.4 10^3/mcL AO Workflow SS Monocytes/100 WBC (Bld) 7.4 % Normal 2.0 - 13.0 % AO Workflow SS Neutrophils (Bld) [#/Vol] 4.1 103/mcL Normal 2.3 - 8.1 10^3/mcL AO Workflow SS Neutrophils/100 WBC (Bld) 66.3 % Normal 50.0 - 75.0 % AO Workflow SS Platelet mean volume (Bld) [Entitic vol] 7.3 fL Normal 6.6 - 10.5 fL AO Workflow SS Platelets (Bld) [#/Vol] 194 103/mcL Normal 150 - 450 10^3/mcL AO Workflow SS Potassium [Moles/Vol] 3.5 mmol/L Normal 3.5 - 5.1 mmol/L AO ADM SS Protein [Mass/Vol] 7.0 G/dL Normal 6.4 - 8.2 G/dL AO ADM SS RBC (Bld) [#/Vol] 3.47 106/mcL Low 4.10 - 5.3 0 10^6/mcL AO Workflow SS Sodium [Moles/Vol] 142 mmol/L Normal 136 - 145 mmol/L AO ADM SS Urea nitrogen [Mass/Vol] 14 mg/dL Normal 7 - 18 mg/dL AO ADM SS Urea nitrogen/Creatinine [Mass ratio] 15 ratio Normal 7 - 27 ratio AO ADM SS WBC (Bld) [#/Vol] 6.2 103/mcL Normal 4.5 - 10.8 10^3/mcL AO Workflow SS LABORATORYOrdered By: Michelle Dorado on 05-06-2025 Platelets LM Ql (Bld) Normal (05/06/25 3:48 PM) Normal AO Hematology S LABORATORYOrdered By: Dhruv Cook on 05-01-2025 Glucose [Mass/Vol] 116 mg/dL High 82 - 115 mg/dL [facility] HbA1c (Bld) [Mass fraction] 5.7 % [facility] Lab Performed By Dhruv Cook PharmD [facility] Performing Location [facility] GGTon 04-15-2025 Gamma GT 94 U/L High 5-55 [facility] Comment on above: Performed By: #### A 1C, FT4, ANEU, GFR, LIPID, CBC, CMP, TSH, ADIFF #### [address] [address] ALT/SGPTon 04-14-2025 ALT [Catalytic activity/Vol] 39 U/L Normal 14-59 [facility] Comment on above: Performed By: #### A 1C, FT4, ANEU, GFR, LIPID, CBC, CMP, TSH, ADIFF #### [address] [address] APon 04-14-2025 ALP [Catalytic activity/Vol] 88 U/L Normal 40-135 [facility] Comment on above: Performed By: #### A 1C, FT4, ANEU, GFR, LIPID, CBC, CMP, TSH, ADIFF #### [address] [address] FEon 04-14-2025 Iron [Mass/Vol] 28 ug/dL Low 50-170 [facility] Comment on above: Performed By: #### A 1C, FT4, ANEU, GFR, LIPID, CBC, CMP, TSH, ADIFF #### [address] [address] Dipti 04-14-2025 Ferritin [Mass/Vol] 40.0 ng/mL Normal 8.0-252.0 [facility] Comment on above: Performed By: #### A 1C, FT4, ANEU, GFR, LIPID, CBC, CMP, TSH, ADIFF #### [address] [address] HHon 04-14-2025 Hematocrit (Bld) [Volume fraction] 27.4 % Low 34.0-46.0 [facility] Comment on above: Performed By: #### A 1C, FT4, ANEU, GFR, LIPID, CBC, CMP, TSH, ADIFF #### [address] [place], [place] [address] Hgb 8.8 G/dL Low 12.0-16.0 [facility] Comment on above: Performed By: #### A 1C, FT4, ANEU, GFR, LIPID, CBC, CMP, TSH, ADIFF #### [place] [address] LABORATORYOrdered By: SYSTEM SYSTEM on 04-14-2025 ALP [Catalytic activity/Vol] 88 U/L Normal 40 - 135 U/L AO ADM SS ALT With P-5'-P [Catalytic activity/Vol] 39 U/L Normal 14 - 59 U/L AO ADM SS Ferritin [Mass/Vol] 40.0 ng/mL Normal 8.0 - 25 2.0 ng/mL AO ADM SS Gamma glutamyl transferase [Catalytic activity/Vol] 94 U/L High 5 - 55 U/L AH ADM SS Hematocrit (Bld) [Volume fraction] 27.4 % Low 34.0 - 46.0 % AO Workflow SS Hemoglobin (Bld) [Mass/Vol] 8.8 G/dL Low 12.0 - 16.0 G/dL AO Workflow SS Iron [Mass/Vol] 28 ug/dL Low 50 - 170 mcg/dL AO ADM SS .Auto Diffon 03-28-2025 Basophil, Absolute 0.0 10 3/mcL Normal 0.0-0.3 [facility] Comment on above: Performed By: #### A 1C, FT4, ANEU, GFR, LIPID, CBC, CMP, TSH, ADIFF #### [address] [address] Basophils/100 WBC (Bld) 0.6 % Normal 0.0-2.5 [facility] Comment on above: Performed By: #### A 1C, FT4, ANEU, GFR, LIPID, CBC, CMP, TSH, ADIFF #### [address] [address] Eosinophil, Absolute 0.1 10 3/mcL Normal 0.0-0.7 [facility] Comment on above: Performed By: #### A 1C, FT4, ANEU, GFR, LIPID, CBC, CMP, TSH, ADIFF #### [address] [address] Eosinophils/100 WBC (Bld) 1.6 % Normal 0.0-6.0 [facility] Comment on above: Performed By: #### A 1C, FT4, ANEU, GFR, LIPID, CBC, CMP, TSH, ADIFF #### [address] [address] Lymphocyte, Absolute 1.5 10 3/mcL Normal 0.9-4.3 [facility] Comment on above: Performed By: #### A 1C, FT4, ANEU, GFR, LIPID, CBC, CMP, TSH, ADIFF #### [address] [address] Lymphocytes/100 WBC (Bld) 20.6 % Normal 20.0-40.0 [facility] Comment on above: Performed By: #### A 1C, FT4, ANEU, GFR, LIPID, CBC, CMP, TSH, ADIFF #### [address] [address] Monocyte, Absolute 0.5 10 3/mcL Normal 0.1-1.4 [facility] Comment on above: Performed By: #### A 1C, FT4, ANEU, GFR, LIPID, CBC, CMP, TSH, ADIFF #### [address] [address] Monocytes/100 WBC (Bld) 6.8 % Normal 2.0-13.0 [facility] Comment on above: Performed By: #### A 1C, FT4, ANEU, GFR, LIPID, CBC, CMP, TSH, ADIFF #### [address] [address] Neutrophils/100 WBC (Bld) 70.4 % Normal 50.0-75.0 [facility] Comment on above: Performed By: #### A 1C, FT4, ANEU, GFR, LIPID, CBC, CMP, TSH, ADIFF #### [place] [address] .NEUABSon 03-28-2025 Neutrophil, Absolute 5.0 10 3/mcL Normal 2.3-8.1 [facility] Comment on above: Performed By: #### A 1C, FT4, ANEU, GFR, LIPID, CBC, CMP, TSH, ADIFF #### [place] [address] CBCon 03-28-2025 Erythrocyte distribution width (RBC) [Ratio] 16.0 % High 11.5-15.5 [facility] Comment on above: Performed By: #### A 1C, FT4, ANEU, GFR, LIPID, CBC, CMP, TSH, ADIFF #### [place] [address] Hematocrit (Bld) [Volume fraction] 28.4 % Low 34.0-46.0 [facility] Comment on above: Performed By: #### A 1C, FT4, ANEU, GFR, LIPID, CBC, CMP, TSH, ADIFF #### [place] [address] Hgb 9.0 G/dL Low 12.0-16.0 [facility] Comment on above: Performed By: #### A 1C, FT4, ANEU, GFR, LIPID, CBC, CMP, TSH, ADIFF #### [place] [address] MCH (RBC) [Entitic mass] 27.6 pg Normal 27.0-33.0 [facility] Comment on above: Performed By: #### A 1C, FT4, ANEU, GFR, LIPID, CBC, CMP, TSH, ADIFF #### [place] [address] MCHC 31.8 G/dL Low 32.0-36.0 [facility] Comment on above: Performed By: #### A 1C, FT4, ANEU, GFR, LIPID, CBC, CMP, TSH, ADIFF #### [place] [id number] MCV (RBC) [Entitic vol] 86.9 fL Normal 80.0-99.0 [facility] Comment on above: Performed By: #### A 1C, FT4, ANEU, GFR, LIPID, CBC, CMP, TSH, ADIFF #### [place] [address] Platelet 286 10 3/mcL Normal 150-450 [facility] Comment on above: Performed By: #### A 1C, FT4, ANEU, GFR, LIPID, CBC, CMP, TSH, ADIFF #### [place] [address] Platelet mean volume (Bld) [Entitic vol] 7.5 fL Normal 6.6-10.5 [facility] Comment on above: Performed By: #### A 1C, FT4, ANEU, GFR, LIPID, CBC, CMP, TSH, ADIFF #### [place] [address] RBC 3.27 10 6/mcL Low 4.10-5.30 [facility] Comment on above: Performed By: #### A 1C, FT4, ANEU, GFR, LIPID, CBC, CMP, TSH, ADIFF #### [place] [address] WBC 7.2 10 3/mcL Normal 4.5-10.8 [facility] Comment on above: Performed By: #### A 1C, FT4, ANEU, GFR, LIPID, CBC, CMP, TSH, ADIFF #### [place] [address] FEon 03-28-2025 Iron [Mass/Vol] 30 ug/dL Low 50-170 [facility] Comment on above: Performed By: #### A 1C, FT4, ANEU, GFR, LIPID, CBC, CMP, TSH, ADIFF #### [place] [address] Dipti 03-28-2025 Ferritin [Mass/Vol] 50.0 ng/mL Normal 8.0-252.0 [facility] Comment on above: Performed By: #### A 1C, FT4, ANEU, GFR, LIPID, CBC, CMP, TSH, ADIFF #### [id number] [place], [place] [address] LABORATORYOrdered By: SYSTEM SYSTEM on 03-28-2025 Basophils (Bld) [#/Vol] 0.0 103/mcL Normal 0.0 - 0.3 10^3/mcL AO Workflow SS Basophils/100 WBC (Bld) 0.6 % Normal 0.0 - 2.5 % AO Workflow SS Eosinophil, Absolute 0.1 103/mcL Normal 0.0 - 0 .7 10^3/mcL AO Workflow SS Eosinophils/100 WBC (Bld) 1.6 % Normal 0.0 - 6.0 % AO Workflow SS Erythrocyte distribution width (RBC) [Ratio] 16.0 % High 11.5 - 15.5 % AO Workflow SS Ferritin [Mass/Vol] 50.0 ng/mL Normal 8.0 - 25 2.0 ng/mL AO ADM SS Hematocrit (Bld) [Volume fraction] 28.4 % Low 34.0 - 46.0 % AO Workflow SS Hemoglobin (Bld) [Mass/Vol] 9.0 G/dL Low 12.0 - 16.0 G/dL AO Workflow SS Immature reticulocytes/Total reticulocytes (Bld) 0.40 IRF Normal 0.20 - 0.46 IRF AO Workflow SS Iron [Mass/Vol] 30 ug/dL Low 50 - 170 mcg/dL AO ADM SS Lymphocytes (Bld) [#/Vol] 1.5 103/mcL Normal 0.9 - 4.3 10^3/mcL AO Workflow SS Lymphocytes/100 WBC (Bld) 20.6 % Normal 20.0 - 40.0 % AO Workflow SS MCH (RBC) [Entitic mass] 27.6 pg Normal 27.0 - 33.0 pg AO Workflow SS MCHC 31.8 G/dL Low 32.0 - 36.0 G/dL AO Workflow SS MCV (RBC) [Entitic vol] 86.9 fL Normal 80.0 - 99.0 fL AO Workflow SS Monocytes (Bld) [#/Vol] 0.5 103/mcL Normal 0.1 - 1.4 10^3/mcL AO Workflow SS Monocytes/100 WBC (Bld) 6.8 % Normal 2.0 - 13.0 % AO Workflow SS Neutrophils (Bld) [#/Vol] 5.0 103/mcL Normal 2.3 - 8.1 10^3/mcL AO Workflow SS Neutrophils/100 WBC (Bld) 70.4 % Normal 50.0 - 75.0 % AO Workflow SS Platelet mean volume (Bld) [Entitic vol] 7.5 fL Normal 6.6 - 10.5 fL AO Workflow SS Platelets (Bld) [#/Vol] 286 103/mcL Normal 150 - 450 10^3/mcL AO Workflow SS RBC (Bld) [#/Vol] 3.27 106/mcL Low 4.10 - 5.3 0 10^6/mcL AO Workflow SS Reticulocytes, Auto 2.0 % Normal 0.2 - 2.3 % AO W orkflow SS WBC (Bld) [#/Vol] 7.2 103/mcL Normal 4.5 - 10.8 10^3/mcL AO Workflow SS RETO (AO)on 03-28-2025 Immature Retic Fraction 0.40 IRF Normal 0.20-0.46 [facility] Comment on above: Performed By: #### A 1C, FT4, ANEU, GFR, LIPID, CBC, CMP, TSH, ADIFF #### [address] [address] Reticulocytes, Auto 2.0 % Normal 0.2-2.3 [facility] Comment on above: Performed By: #### A 1C, FT4, ANEU, GFR, LIPID, CBC, CMP, TSH, ADIFF #### [address] [address] .GFRon 03-20-2025 Estimated Glomerular Filtration Rate 57 ml/min/1.73sqm Normal [facility] Comment on above: Result Comment: Stages of Chronic Kidney Disease (CKD) Stage Description eGFR(ml/min/1.73 sq.m.) CKD 1 Normal kidney function or >=90 normal kindney function with possible kidney damage (ex. Proteinuria) CKD 2 Kidney damage with mild loss 60-89 of kidney function CKD 3a Mild to moderate loss of kidney 45-59 function CKD 3b Moderate to severe loss of 30-44 of kindey function CKD 4 Severe loss of kidney function 15-29 CKD 5 Kidney failure <15 Note: (go live 2024) the eGFR calculation was updated to the 2020 CKD-EPI creatinine equation without a race factor to calculate the eGFR results. Performed By: #### G FR, BMP #### [address] [place], [place] [address] BMPon 03-20-2025 BUN/Creatinine Ratio 17 ratio Normal 7-27 [facility] Comment on above: Performed By: #### G FR, BMP #### [address] [place], [place] [address] Calcium [Mass/Vol] 9.1 mg/dL Normal 8.4-10.2 [facility] Comment on above: Performed By: #### G FR, BMP #### [address] [place], [place] [address] Chloride [Moles/Vol] 103 mmol/L Normal 98-107 [facility] Comment on above: Performed By: #### G FR, BMP #### [address] [place], [place] [address] CO2 [Moles/Vol] 28 mmol/L Normal 23-31 [facility] Comment on above: Performed By: #### G FR, BMP #### [address] [place], [place] [address] Creatinine [Mass/Vol] 0.98 mg/dL High 0.51-0.95 [facility] Comment on above: Performed By: #### G FR, BMP #### [address] [place], [place] [address] Electrolyte Balance 10.0 mEq/L Normal 4.0-15.0 [facility] Comment on above: Performed By: #### G FR, BMP #### [address] [place], [place] [address] Glucose [Mass/Vol] 175 mg/dL High 83-110 [facility] Comment on above: Performed By: #### G FR, BMP #### [address] [place], [place] [address] Potassium [Moles/Vol] 4.1 mmol/L Normal 3.5-5.1 [facility] [place] Comment on above: Performed By: #### G FR, BMP #### [address] [place], [place] [address] Sodium [Moles/Vol] 141 mmol/L Normal 136-145 [facility] [place] Comment on above: Performed By: #### G FR, BMP #### [address] [place], [place] [address] Urea nitrogen [Mass/Vol] 17 mg/dL Normal 7-18 [facility] Comment on above: Performed By: #### G FR, BMP #### [address] [place], [place] [address] .Auto Diffon 03-06-2025 Basophil, Absolute 0.0 10 3/mcL Normal 0.0-0.3 [facility] Comment on above: Performed By: #### A 1C, FT4, ANEU, GFR, LIPID, CBC, CMP, TSH, ADIFF #### [address] [address] Basophils/100 WBC (Bld) 0.9 % Normal 0.0-2.5 [facility] Comment on above: Performed By: #### A 1C, FT4, ANEU, GFR, LIPID, CBC, CMP, TSH, ADIFF #### [address] [address] Eosinophil, Absolute 0.2 10 3/mcL Normal 0.0-0.7 [facility] Comment on above: Performed By: #### A 1C, FT4, ANEU, GFR, LIPID, CBC, CMP, TSH, ADIFF #### [address] [address] Eosinophils/100 WBC (Bld) 3.3 % Normal 0.0-6.0 [facility] Comment on above: Performed By: #### A 1C, FT4, ANEU, GFR, LIPID, CBC, CMP, TSH, ADIFF #### [address] [address] Lymphocyte, Absolute 0.8 10 3/mcL Low 0.9-4.3 [facility] Comment on above: Performed By: #### A 1C, FT4, ANEU, GFR, LIPID, CBC, CMP, TSH, ADIFF #### [address] [address] Lymphocytes/100 WBC (Bld) 15.5 % Low 20.0-40.0 [facility] Comment on above: Performed By: #### A 1C, FT4, ANEU, GFR, LIPID, CBC, CMP, TSH, ADIFF #### [address] [address] Monocyte, Absolute 0.5 10 3/mcL Normal 0.1-1.4 [facility] Comment on above: Performed By: #### A 1C, FT4, ANEU, GFR, LIPID, CBC, CMP, TSH, ADIFF #### [address] [address] Monocytes/100 WBC (Bld) 9.3 % Normal 2.0-13.0 [facility] Comment on above: Performed By: #### A 1C, FT4, ANEU, GFR, LIPID, CBC, CMP, TSH, ADIFF #### [address] [address] Neutrophils/100 WBC (Bld) 71.0 % Normal 50.0-75.0 [facility] Comment on above: Performed By: #### A 1C, FT4, ANEU, GFR, LIPID, CBC, CMP, TSH, ADIFF #### [address] [address] .GFRon 03-06-2025 Estimated Glomerular Filtration Rate 35 ml/min/1.73sqm Normal [facility] Comment on above: Result Comment: Stages of Chronic Kidney Disease (CKD) Stage Description eGFR(ml/min/1.73 sq.m.) CKD 1 Normal kidney function or >=90 normal kindney function with possible kidney damage (ex. Proteinuria) CKD 2 Kidney damage with mild loss 60-89 of kidney function CKD 3a Mild to moderate loss of kidney 45-59 function CKD 3b Moderate to severe loss of 30-44 of kindey function CKD 4 Severe loss of kidney function 15-29 CKD 5 Kidney failure <15 Note: (go live 2024) the eGFR calculation was updated to the 2020 CKD-EPI creatinine equation without a race factor to calculate the eGFR results. Performed By: #### A 1C, FT4, ANEU, GFR, LIPID, CBC, CMP, TSH, ADIFF #### [place] [address] .NEUABSon 03-06-2025 Neutrophil, Absolute 3.8 10 3/mcL Normal 2.3-8.1 [facility] Comment on above: Performed By: #### A 1C, FT4, ANEU, GFR, LIPID, CBC, CMP, TSH, ADIFF #### [place] [address] CBCon 03-06-2025 Erythrocyte distribution width (RBC) [Ratio] 16.1 % High 11.5-15.5 [facility] Comment on above: Performed By: #### A 1C, FT4, ANEU, GFR, LIPID, CBC, CMP, TSH, ADIFF #### [place] [address] Hematocrit (Bld) [Volume fraction] 29.5 % Low 34.0-46.0 [facility] Comment on above: Performed By: #### A 1C, FT4, ANEU, GFR, LIPID, CBC, CMP, TSH, ADIFF #### [place] [address] Hgb 9.5 G/dL Low 12.0-16.0 [facility] Comment on above: Performed By: #### A 1C, FT4, ANEU, GFR, LIPID, CBC, CMP, TSH, ADIFF #### [place] [address] MCH (RBC) [Entitic mass] 28.4 pg Normal 27.0-33.0 [facility] Comment on above: Performed By: #### A 1C, FT4, ANEU, GFR, LIPID, CBC, CMP, TSH, ADIFF #### [place] [id number] MCHC 32.3 G/dL Normal 32.0-36.0 [facility] Comment on above: Performed By: #### A 1C, FT4, ANEU, GFR, LIPID, CBC, CMP, TSH, ADIFF #### [place] [address] MCV (RBC) [Entitic vol] 87.9 fL Normal 80.0-99.0 [facility] Comment on above: Performed By: #### A 1C, FT4, ANEU, GFR, LIPID, CBC, CMP, TSH, ADIFF #### [place] [address] Platelet 198 10 3/mcL Normal 150-450 [facility] Comment on above: Performed By: #### A 1C, FT4, ANEU, GFR, LIPID, CBC, CMP, TSH, ADIFF #### [place] [address] Platelet mean volume (Bld) [Entitic vol] 7.1 fL Normal 6.6-10.5 [facility] Comment on above: Performed By: #### A 1C, FT4, ANEU, GFR, LIPID, CBC, CMP, TSH, ADIFF #### [place] [address] RBC 3.36 10 6/mcL Low 4.10-5.30 [facility] Comment on above: Performed By: #### A 1C, FT4, ANEU, GFR, LIPID, CBC, CMP, TSH, ADIFF #### [place] [address] WBC 5.3 10 3/mcL Normal 4.5-10.8 [facility] Comment on above: Performed By: #### A 1C, FT4, ANEU, GFR, LIPID, CBC, CMP, TSH, ADIFF #### [place] [address] CMPon 03-06-2025 Albumin Level 3.6 G/dL Normal 3.4-4.8 [facility] Comment on above: Performed By: #### A 1C, FT4, ANEU, GFR, LIPID, CBC, CMP, TSH, ADIFF #### [address] [address] Albumin/Globulin [Mass ratio] 1.0 {ratio} Low 1.1-2.5 [facility] Comment on above: Performed By: #### A 1C, FT4, ANEU, GFR, LIPID, CBC, CMP, TSH, ADIFF #### [address] [address] ALP [Catalytic activity/Vol] 77 U/L Normal 40-135 [facility] Comment on above: Performed By: #### A 1C, FT4, ANEU, GFR, LIPID, CBC, CMP, TSH, ADIFF #### [place] [address] ALT [Catalytic activity/Vol] 18 U/L Normal 14-59 [facility] Comment on above: Performed By: #### A 1C, FT4, ANEU, GFR, LIPID, CBC, CMP, TSH, ADIFF #### [place] [address] AST [Catalytic activity/Vol] 19 U/L Normal 10-40 [facility] Comment on above: Performed By: #### A 1C, FT4, ANEU, GFR, LIPID, CBC, CMP, TSH, ADIFF #### [address] [address] Bili Total 0.2 mg/dL Normal 0.2-1.0 [facility] Comment on above: Result Comment: Use of this assay is not recommended for patients undergoing treatment with eltrombopag due to the potential for falsely elevated results. Performed By: #### A 1C, FT4, ANEU, GFR, LIPID, CBC, CMP, TSH, ADIFF #### [place] [address] BUN/Creatinine Ratio 16 ratio Normal 7-27 [facility] Comment on above: Performed By: #### A 1C, FT4, ANEU, GFR, LIPID, CBC, CMP, TSH, ADIFF #### [place] [address] Calcium [Mass/Vol] 9.1 mg/dL Normal 8.4-10.2 [facility] Comment on above: Performed By: #### A 1C, FT4, ANEU, GFR, LIPID, CBC, CMP, TSH, ADIFF #### [place] [address] Chloride [Moles/Vol] 102 mmol/L Normal 98-107 [facility] Comment on above: Performed By: #### A 1C, FT4, ANEU, GFR, LIPID, CBC, CMP, TSH, ADIFF #### [place] [address] CO2 [Moles/Vol] 24 mmol/L Normal 23-31 [facility] Comment on above: Performed By: #### A 1C, FT4, ANEU, GFR, LIPID, CBC, CMP, TSH, ADIFF #### [place] [address] Creatinine [Mass/Vol] 1.47 mg/dL High 0.51-0.95 [facility] Comment on above: Performed By: #### A 1C, FT4, ANEU, GFR, LIPID, CBC, CMP, TSH, ADIFF #### [place] [address] Electrolyte Balance 10.0 mEq/L Normal 4.0-15.0 [facility] Comment on above: Performed By: #### A 1C, FT4, ANEU, GFR, LIPID, CBC, CMP, TSH, ADIFF #### [place] [address] Globulin 3.7 G/dL Normal 2.7-4.4 [facility] Comment on above: Performed By: #### A 1C, FT4, ANEU, GFR, LIPID, CBC, CMP, TSH, ADIFF #### [place] [address] Glucose [Mass/Vol] 189 mg/dL High 83-110 [facility] Comment on above: Performed By: #### A 1C, FT4, ANEU, GFR, LIPID, CBC, CMP, TSH, ADIFF #### [address] [address] Potassium [Moles/Vol] 5.0 mmol/L Normal 3.5-5.1 [facility] Comment on above: Performed By: #### A 1C, FT4, ANEU, GFR, LIPID, CBC, CMP, TSH, ADIFF #### [address] [address] Sodium [Moles/Vol] 136 mmol/L Normal 136-145 [facility] Comment on above: Performed By: #### A 1C, FT4, ANEU, GFR, LIPID, CBC, CMP, TSH, ADIFF #### [address] [address] Total Protein 7.3 G/dL Normal 6.4-8.2 [facility] Comment on above: Performed By: #### A 1C, FT4, ANEU, GFR, LIPID, CBC, CMP, TSH, ADIFF #### [address] [address] Urea nitrogen [Mass/Vol] 23 mg/dL High 7-18 [facility] Comment on above: Performed By: #### A 1C, FT4, ANEU, GFR, LIPID, CBC, CMP, TSH, ADIFF #### [address] [address] FEon 03-06-2025 Iron [Mass/Vol] 35 ug/dL Low 50-170 [facility] Comment on above: Performed By: #### A 1C, FT4, ANEU, GFR, LIPID, CBC, CMP, TSH, ADIFF #### [address] [address] Dipti 03-06-2025 Ferritin [Mass/Vol] 28.0 ng/mL Normal 8.0-252.0 [facility] Comment on above: Performed By: #### A 1C, FT4, ANEU, GFR, LIPID, CBC, CMP, TSH, ADIFF #### [place] [id number] LABORATORYOrdered By: SYSTEM SYSTEM on 03-06-2025 Albumin BCP dye [Mass/Vol] 3.6 G/dL Normal 3.4 - 4.8 G/dL AO ADM SS Albumin/Globulin [Mass ratio] 1.0 {ratio} Low 1.1 - 2.5 ratio AO ADM SS ALP [Catalytic activity/Vol] 77 U/L Normal 40 - 135 U/L AO ADM SS ALT With P-5'-P [Catalytic activity/Vol] 18 U/L Normal 14 - 59 U/L AO ADM SS AST With P-5'-P [Catalytic activity/Vol] 19 U/L Normal 10 - 40 U/L AO ADM SS Basophils (Bld) [#/Vol] 0.0 103/mcL Normal 0.0 - 0.3 10^3/mcL AO Workflow SS Basophils/100 WBC (Bld) 0.9 % Normal 0.0 - 2.5 % AO Workflow SS Bilirubin [Mass/Vol] 0.2 mg/dL Normal 0.2 - 1 .0 mg/dL AO ADM SS Comment on above: Interpretive Data: U se of this assay is not recommended for patients undergoing treatment with eltrombopag due to the potential for falsely elevated results. Calcium [Mass/Vol] 9.1 mg/dL Normal 8.4 - 10. 2 mg/dL AO ADM SS Chloride [Moles/Vol] 102 mmol/L Normal 98 - 10 7 mmol/L AO ADM SS CO2 [Moles/Vol] 24 mmol/L Normal 23 - 31 mmol/L AO ADM SS Creatinine [Mass/Vol] 1.47 mg/dL High 0.51 - 0.95 mg/dL AO ADM SS Electrolyte Balance 10.0 mEq/L Normal 4.0 - 15 .0 mEq/L AO ADM SS Eosinophil, Absolute 0.2 103/mcL Normal 0.0 - 0 .7 10^3/mcL AO Workflow SS Eosinophils/100 WBC (Bld) 3.3 % Normal 0.0 - 6.0 % AO Workflow SS Erythrocyte distribution width (RBC) [Ratio] 16.1 % High 11.5 - 15.5 % AO Workflow SS Estimated Glomerular Filtration Rate 35 ml/min/1.73sqm Invalid Interpretation Code AO Chemistry S Comment on above: Interpretive Data: Stages of Chronic Kidney Disease (CKD) Stage Description eGFR(ml/min/1.73 sq.m.) CKD 1 Normal kidney function or >=90 normal kindney function with possible kidney damage (ex. Proteinuria) CKD 2 Kidney damage with mild loss 60-89 of kidney function CKD 3a Mild to moderate loss of kidney 45-59 function CKD 3b Moderate to severe loss of 30-44 of kindey function CKD 4 Severe loss of kidney function 15-29 CKD 5 Kidney failure <15 Note: (go live 2024) the eGFR calculation was updated to the 2020 CKD-EPI creatinine equation without a race factor to calculate the eGFR results. Ferritin [Mass/Vol] 28.0 ng/mL Normal 8.0 - 25 2.0 ng/mL AO ADM SS Globulin 3.7 G/dL Normal 2.7 - 4.4 G/dL AO ADM SS Glucose [Mass/Vol] 189 mg/dL High 83 - 110 mg/dL AO ADM SS Hematocrit (Bld) [Volume fraction] 29.5 % Low 34.0 - 46.0 % AO Workflow SS Hemoglobin (Bld) [Mass/Vol] 9.5 G/dL Low 12.0 - 16.0 G/dL AO Workflow SS Immature reticulocytes/Total reticulocytes (Bld) 0.38 IRF Normal 0.20 - 0.46 IRF AO Workflow SS Iron [Mass/Vol] 35 ug/dL Low 50 - 170 mcg/dL AO ADM SS Lymphocytes (Bld) [#/Vol] 0.8 103/mcL Low 0.9 - 4.3 10^3/mcL AO Workflow SS Lymphocytes/100 WBC (Bld) 15.5 % Low 20.0 - 40.0 % AO Workflow SS MCH (RBC) [Entitic mass] 28.4 pg Normal 27.0 - 33.0 pg AO Workflow SS MCHC 32.3 G/dL Normal 32.0 - 36.0 G/dL AO Workflow SS MCV (RBC) [Entitic vol] 87.9 fL Normal 80.0 - 99.0 fL AO Workflow SS Monocytes (Bld) [#/Vol] 0.5 103/mcL Normal 0.1 - 1.4 10^3/mcL AO Workflow SS Monocytes/100 WBC (Bld) 9.3 % Normal 2.0 - 13.0 % AO Workflow SS Neutrophils (Bld) [#/Vol] 3.8 103/mcL Normal 2.3 - 8.1 10^3/mcL AO Workflow SS Neutrophils/100 WBC (Bld) 71.0 % Normal 50.0 - 75.0 % AO Workflow SS Platelet mean volume (Bld) [Entitic vol] 7.1 fL Normal 6.6 - 10.5 fL AO Workflow SS Platelets (Bld) [#/Vol] 198 103/mcL Normal 150 - 450 10^3/mcL AO Workflow SS Potassium [Moles/Vol] 5.0 mmol/L Normal 3.5 - 5.1 mmol/L AO ADM SS Protein [Mass/Vol] 7.3 G/dL Normal 6.4 - 8.2 G/dL AO ADM SS RBC (Bld) [#/Vol] 3.36 106/mcL Low 4.10 - 5.3 0 10^6/mcL AO Workflow SS Reticulocytes, Auto 1.6 % Normal 0.2 - 2.3 % AO W orkflow SS Sodium [Moles/Vol] 136 mmol/L Normal 136 - 145 mmol/L AO ADM SS Urea nitrogen [Mass/Vol] 23 mg/dL High 7 - 18 mg/dL AO ADM SS Urea nitrogen/Creatinine [Mass ratio] 16 ratio Normal 7 - 27 ratio AO ADM SS WBC (Bld) [#/Vol] 5.3 103/mcL Normal 4.5 - 10.8 10^3/mcL AO Workflow SS RETO (AO)on 03-06-2025 Immature Retic Fraction 0.38 IRF Normal 0.20-0.46 [facility] Comment on above: Performed By: #### A 1C, FT4, ANEU, GFR, LIPID, CBC, CMP, TSH, ADIFF #### [place] [id number] [place], [place] [address] Reticulocytes, Auto 1.6 % Normal 0.2-2.3 [facility] Comment on above: Performed By: #### A 1C, FT4, ANEU, GFR, LIPID, CBC, CMP, TSH, ADIFF #### [place] [id number] [place], [place] [address] No Panel Informationon 02-20 Culture Wound Aerobe Few normal skin mariano ra present. Sensitivity testing not indicated. [facility] GS 4+ Polymorphonuclear cells 2+ Gram Positive Cocci [facility] CT ABDOMEN/PELVIS W/CONTRAST on 02-18-2025 CT ABDOMEN/PELVIS W/CONTRAST ORIGINAL EXAMINATION: CT OF THE ABDOMEN AND PELVIS WITH CONTRAST 02/18/2025 2:16 pm TECHNIQUE: CT of the abdomen and pelvis was performed with the administration of intravenous contrast. Multiplanar reformatted images are provided for review. Automated exposure control, iterative reconstruction, and/or weight based adjustment of the mA/kV was utilized to reduce the radiation dose to as low as reasonably achievable. COMPARISON: 12/27/2021 HISTORY: ORDERING SYSTEM PROVIDED HISTORY: Reason for Exam: elevated LFT and anemia diarrhea x 4 months, no pain FINDINGS: No significant findings in the imaged lower thorax. Liver, pancreas, spleen and adrenal glands are unremarkable. Cholecystectomy with slight interval increased dilation of the biliary tree which. Symmetric nephrograms with areas of cortical thinning similar to prior. Numerous subcentimeter bilateral renal cysts. 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 No mass, calculus or hydronephrosis. Unremarkable bladder and uterus. No pelvic or inguinal lymphadenopathy. No bowel dilation or wall thickening. Nonvisualized appendix, no pericecal inflammatory changes are present. Tiny fat containing umbilical hernia. No free intraperitoneal air. No abdominal lymphadenopathy. Atherosclerosis of the abdominal aorta and its major branches without aneurysm. No acute osseous findings. Moderate to severe multilevel degenerative changes of the spine. Posterior fusion hardware of L3-L5. Degenerative changes of the hips. IMPRESSION: No acute intra-abdominal or intrapelvic findings. Interval slightly increased biliary tree dilation which may be normal for this patient. Correlate with serum ALP regarding the need for further study. I have personally reviewed the images of this examination and agree with the resident's findings and interpretation. Interpreted by: Samaria Wisdom MD Preliminary Report By: Elijah Landin Electronically signed By Samaria Wisdom MD Dictated Date: 02/18/2025 2:25:51 PM Prelim Date: 02/18/2025 4:10:18 PM Sign Date: 02/18/2025 4:10:18 PM Ordering Provider: FITZ Hoffmann [facility] .Auto Diffon 02-10-2025 Basophil, Absolute 0.0 10 3/mcL Normal 0.0-0.3 [facility] Comment on above: Performed By: #### A 1C, FT4, ANEU, GFR, LIPID, CBC, CMP, TSH, ADIFF #### [address] [address] Basophils/100 WBC (Bld) 0.5 % Normal 0.0-2.5 [facility] Comment on above: Performed By: #### A 1C, FT4, ANEU, GFR, LIPID, CBC, CMP, TSH, ADIFF #### [address] [address] Eosinophil, Absolute 0.2 10 3/mcL Normal 0.0-0.7 [facility] Comment on above: Performed By: #### A 1C, FT4, ANEU, GFR, LIPID, CBC, CMP, TSH, ADIFF #### [address] [address] Eosinophils/100 WBC (Bld) 4.3 % Normal 0.0-6.0 [facility] Comment on above: Performed By: #### A 1C, FT4, ANEU, GFR, LIPID, CBC, CMP, TSH, ADIFF #### [address] [address] Lymphocyte, Absolute 1.1 10 3/mcL Normal 0.9-4.3 [facility] Comment on above: Performed By: #### A 1C, FT4, ANEU, GFR, LIPID, CBC, CMP, TSH, ADIFF #### [address] [address] Lymphocytes/100 WBC (Bld) 23.7 % Normal 20.0-40.0 [facility] Comment on above: Performed By: #### A 1C, FT4, ANEU, GFR, LIPID, CBC, CMP, TSH, ADIFF #### [address] [address] Monocyte, Absolute 0.4 10 3/mcL Normal 0.1-1.4 [facility] Comment on above: Performed By: #### A 1C, FT4, ANEU, GFR, LIPID, CBC, CMP, TSH, ADIFF #### [address] [address] Monocytes/100 WBC (Bld) 8.2 % Normal 2.0-13.0 [facility] Comment on above: Performed By: #### A 1C, FT4, ANEU, GFR, LIPID, CBC, CMP, TSH, ADIFF #### [address] [address] Neutrophils/100 WBC (Bld) 63.3 % Normal 50.0-75.0 [facility] Comment on above: Performed By: #### A 1C, FT4, ANEU, GFR, LIPID, CBC, CMP, TSH, ADIFF #### [address] [address] .GFRon 02-10-2025 Estimated Glomerular Filtration Rate 71 ml/min/1.73sqm Normal [facility] Comment on above: Result Comment: Stages of Chronic Kidney Disease (CKD) Stage Description eGFR(ml/min/1.73 sq.m.) CKD 1 Normal kidney function or >=90 normal kindney function with possible kidney damage (ex. Proteinuria) CKD 2 Kidney damage with mild loss 60-89 of kidney function CKD 3a Mild to moderate loss of kidney 45-59 function CKD 3b Moderate to severe loss of 30-44 of kindey function CKD 4 Severe loss of kidney function 15-29 CKD 5 Kidney failure <15 Note: (go live 2024) the eGFR calculation was updated to the 2020 CKD-EPI creatinine equation without a race factor to calculate the eGFR results. Performed By: #### A 1C, FT4, ANEU, GFR, LIPID, CBC, CMP, TSH, ADIFF #### [place] [id number] [place], [place] [address] .NEUABSon 02-10-2025 Neutrophil, Absolute 3.0 10 3/mcL Normal 2.3-8.1 [facility] Comment on above: Performed By: #### A 1C, FT4, ANEU, GFR, LIPID, CBC, CMP, TSH, ADIFF #### [place] [address] [place], [place] [address] A1Con 02-10-2025 Glucose [Mass/Vol] 146 mg/dL Normal [facility] Comment on above: Result Comment: Eugenia mated Average Glucose calculated by equation ((28.7xA1C)-46.7) Estimated average glucose (eAG) is a calculated value from Hemoglobin A1C and is national account representative of the average blood glucose level in the last 2-3 month period. Normal range: less than 114 mg/dL Performed By: #### A 1C, FT4, ANEU, GFR, LIPID, CBC, CMP, TSH, ADIFF ####[place] [id number] [place] [address] HbA1c (Bld) [Mass fraction] 6.7 % High 4.3-6.4 [facility] Comment on above: Performed By: #### A 1C, FT4, ANEU, GFR, LIPID, CBC, CMP, TSH, ADIFF ####[place] [id number] CBCon 02-10-2025 Erythrocyte distribution width (RBC) [Ratio] 15.5 % Normal 11.5-15.5 [facility] Comment on above: Performed By: #### A 1C, FT4, ANEU, GFR, LIPID, CBC, CMP, TSH, ADIFF #### [place] [phone] Hematocrit (Bld) [Volume fraction] 30.2 % Low 34.0-46.0 [facility] Comment on above: Performed By: #### A 1C, FT4, ANEU, GFR, LIPID, CBC, CMP, TSH, ADIFF #### [place] [address] Hgb 9.9 G/dL Low 12.0-16.0 [facility] Comment on above: Performed By: #### A 1C, FT4, ANEU, GFR, LIPID, CBC, CMP, TSH, ADIFF #### [place] [id number] MCH (RBC) [Entitic mass] 29.5 pg Normal 27.0-33.0 [facility] Comment on above: Performed By: #### A 1C, FT4, ANEU, GFR, LIPID, CBC, CMP, TSH, ADIFF #### [address] [address] MCHC 32.8 G/dL Normal 32.0-36.0 [facility] Comment on above: Performed By: #### A 1C, FT4, ANEU, GFR, LIPID, CBC, CMP, TSH, ADIFF #### [address] [address] MCV (RBC) [Entitic vol] 90.0 fL Normal 80.0-99.0 [facility] Comment on above: Performed By: #### A 1C, FT4, ANEU, GFR, LIPID, CBC, CMP, TSH, ADIFF #### [place] [address] Platelet 290 10 3/mcL Normal 150-450 [facility] Comment on above: Performed By: #### A 1C, FT4, ANEU, GFR, LIPID, CBC, CMP, TSH, ADIFF #### [place] [address] Platelet mean volume (Bld) [Entitic vol] 6.9 fL Normal 6.6-10.5 [facility] Comment on above: Performed By: #### A 1C, FT4, ANEU, GFR, LIPID, CBC, CMP, TSH, ADIFF #### [place] [address] RBC 3.35 10 6/mcL Low 4.10-5.30 [facility] Comment on above: Performed By: #### A 1C, FT4, ANEU, GFR, LIPID, CBC, CMP, TSH, ADIFF #### [place] [id number] WBC 4.7 10 3/mcL Normal 4.5-10.8 [facility] Comment on above: Performed By: #### A 1C, FT4, ANEU, GFR, LIPID, CBC, CMP, TSH, ADIFF #### [place] [address] CMPon 02-10-2025 Albumin Level 3.5 G/dL Normal 3.4-4.8 [facility] Comment on above: Performed By: #### A 1C, FT4, ANEU, GFR, LIPID, CBC, CMP, TSH, ADIFF #### [place] [address] Albumin/Globulin [Mass ratio] 1.0 {ratio} Low 1.1-2.5 [facility] Comment on above: Performed By: #### A 1C, FT4, ANEU, GFR, LIPID, CBC, CMP, TSH, ADIFF #### [place] [address] ALP [Catalytic activity/Vol] 195 U/L High 40-135 [facility] Comment on above: Performed By: #### A 1C, FT4, ANEU, GFR, LIPID, CBC, CMP, TSH, ADIFF #### [place] [address] ALT [Catalytic activity/Vol] 67 U/L High 14-59 [facility] Comment on above: Performed By: #### A 1C, FT4, ANEU, GFR, LIPID, CBC, CMP, TSH, ADIFF #### [place] [address] AST [Catalytic activity/Vol] 98 U/L High 10-40 [facility] Comment on above: Performed By: #### A 1C, FT4, ANEU, GFR, LIPID, CBC, CMP, TSH, ADIFF #### [place] [address] Bili Total 0.5 mg/dL Normal 0.2-1.0 [facility] Comment on above: Result Comment: Use of this assay is not recommended for patients undergoing treatment with eltrombopag due to the potential for falsely elevated results. Performed By: #### A 1C, FT4, ANEU, GFR, LIPID, CBC, CMP, TSH, ADIFF #### [place] [phone] BUN/Creatinine Ratio 13 ratio Normal 7-27 [facility] Comment on above: Performed By: #### A 1C, FT4, ANEU, GFR, LIPID, CBC, CMP, TSH, ADIFF #### [place] [address] Calcium [Mass/Vol] 9.4 mg/dL Normal 8.4-10.2 [facility] Comment on above: Performed By: #### A 1C, FT4, ANEU, GFR, LIPID, CBC, CMP, TSH, ADIFF #### [place] [address] Chloride [Moles/Vol] 106 mmol/L Normal 98-107 [facility] Comment on above: Performed By: #### A 1C, FT4, ANEU, GFR, LIPID, CBC, CMP, TSH, ADIFF #### [place] [address] CO2 [Moles/Vol] 27 mmol/L Normal 23-31 [facility] Comment on above: Performed By: #### A 1C, FT4, ANEU, GFR, LIPID, CBC, CMP, TSH, ADIFF #### [place] [address] Creatinine [Mass/Vol] 0.82 mg/dL Normal 0.51-0.95 [facility] Comment on above: Performed By: #### A 1C, FT4, ANEU, GFR, LIPID, CBC, CMP, TSH, ADIFF #### [place] [address] Electrolyte Balance 10.0 mEq/L Normal 4.0-15.0 [facility] Comment on above: Performed By: #### A 1C, FT4, ANEU, GFR, LIPID, CBC, CMP, TSH, ADIFF #### [place] [address] Globulin 3.5 G/dL Normal 2.7-4.4 [facility] Comment on above: Performed By: #### A 1C, FT4, ANEU, GFR, LIPID, CBC, CMP, TSH, ADIFF #### [address] [address] Glucose [Mass/Vol] 120 mg/dL High 83-110 [facility] Comment on above: Performed By: #### A 1C, FT4, ANEU, GFR, LIPID, CBC, CMP, TSH, ADIFF #### [address] [address] Potassium [Moles/Vol] 3.5 mmol/L Normal 3.5-5.1 [facility] Comment on above: Performed By: #### A 1C, FT4, ANEU, GFR, LIPID, CBC, CMP, TSH, ADIFF #### [place] [id number] Sodium [Moles/Vol] 143 mmol/L Normal 136-145 [facility] Comment on above: Performed By: #### A 1C, FT4, ANEU, GFR, LIPID, CBC, CMP, TSH, ADIFF #### [address] [address] Total Protein 7.0 G/dL Normal 6.4-8.2 [facility] Comment on above: Performed By: #### A 1C, FT4, ANEU, GFR, LIPID, CBC, CMP, TSH, ADIFF #### [address] [address] Urea nitrogen [Mass/Vol] 11 mg/dL Normal 7-18 [facility] Comment on above: Performed By: #### A 1C, FT4, ANEU, GFR, LIPID, CBC, CMP, TSH, ADIFF #### [address] [address] FT4on 02-10-2025 Free T4 [Mass/Vol] 0.87 ng/dL Normal 0.76-1.46 [facility] Comment on above: Performed By: #### A 1C, FT4, ANEU, GFR, LIPID, CBC, CMP, TSH, ADIFF #### [address] [address] LABORATORYOrdered By: SYSTEM SYSTEM on 02-10-2025 Albumin BCP dye [Mass/Vol] 3.5 G/dL Normal 3.4 - 4.8 G/dL AO ADM SS Albumin/Globulin [Mass ratio] 1.0 {ratio} Low 1.1 - 2.5 ratio AO ADM SS ALP [Catalytic activity/Vol] 195 U/L High 40 - 135 U/L AO ADM SS ALT With P-5'-P [Catalytic activity/Vol] 67 U/L High 14 - 59 U/L AO ADM SS AST With P-5'-P [Catalytic activity/Vol] 98 U/L High 10 - 40 U/L AO ADM SS Basophils (Bld) [#/Vol] 0.0 103/mcL Normal 0.0 - 0.3 10^3/mcL AO Workflow SS Basophils/100 WBC (Bld) 0.5 % Normal 0.0 - 2.5 % AO Workflow SS Bilirubin [Mass/Vol] 0.5 mg/dL Normal 0.2 - 1 .0 mg/dL AO ADM SS Comment on above: Interpretive Data: U se of this assay is not recommended for patients undergoing treatment with eltrombopag due to the potential for falsely elevated results. Calcium [Mass/Vol] 9.4 mg/dL Normal 8.4 - 10. 2 mg/dL AO ADM SS Chloride [Moles/Vol] 106 mmol/L Normal 98 - 10 7 mmol/L AO ADM SS CO2 [Moles/Vol] 27 mmol/L Normal 23 - 31 mmol/L AO ADM SS Creatinine [Mass/Vol] 0.82 mg/dL Normal 0.51 - 0.95 mg/dL AO ADM SS Electrolyte Balance 10.0 mEq/L Normal 4.0 - 15 .0 mEq/L AO ADM SS Eosinophil, Absolute 0.2 103/mcL Normal 0.0 - 0 .7 10^3/mcL AO Workflow SS Eosinophils/100 WBC (Bld) 4.3 % Normal 0.0 - 6.0 % AO Workflow SS Erythrocyte distribution width (RBC) [Ratio] 15.5 % Normal 11.5 - 15.5 % AO Workflow SS Estimated Glomerular Filtration Rate 71 ml/min/1.73sqm Invalid Interpretation Code AO Chemistry S Comment on above: Interpretive Data: Stages of Chronic Kidney Disease (CKD) Stage Description eGFR(ml/min/1.73 sq.m.) CKD 1 Normal kidney function or >=90 normal kindney function with possible kidney damage (ex. Proteinuria) CKD 2 Kidney damage with mild loss 60-89 of kidney function CKD 3a Mild to moderate loss of kidney 45-59 function CKD 3b Moderate to severe loss of 30-44 of kindey function CKD 4 Severe loss of kidney function 15-29 CKD 5 Kidney failure <15 Note: (go live 2024) the eGFR calculation was updated to the 2020 CKD-EPI creatinine equation without a race factor to calculate the eGFR results. Free T4 [Mass/Vol] 0.87 ng/dL Normal 0.76 - 1. 46 ng/dL AO ADM SS Globulin 3.5 G/dL Normal 2.7 - 4.4 G/dL AO ADM SS Glucose [Mass/Vol] 120 mg/dL High 83 - 110 mg/dL AO ADM SS Glucose [Mass/Vol] 146 mg/dL Invalid Interpretation Code AO Chemistry S Comment on above: Interpretive Data: E stimated average glucose (eAG) is a calculated value from Hemoglobin A1C and is national account representative of the average blood glucose level in the last 2-3 month period. Normal range: less than 114 mg/dL HbA1c (Bld) [Mass fraction] 6.7 % High 4.3 - 6.4 % AO ADM SS Hematocrit (Bld) [Volume fraction] 30.2 % Low 34.0 - 46.0 % AO Workflow SS Hemoglobin (Bld) [Mass/Vol] 9.9 G/dL Low 12.0 - 16.0 G/dL AO Workflow SS Lymphocytes (Bld) [#/Vol] 1.1 103/mcL Normal 0.9 - 4.3 10^3/mcL AO Workflow SS Lymphocytes/100 WBC (Bld) 23.7 % Normal 20.0 - 40.0 % AO Workflow SS MCH (RBC) [Entitic mass] 29.5 pg Normal 27.0 - 33.0 pg AO Workflow SS MCHC 32.8 G/dL Normal 32.0 - 36.0 G/dL AO Workflow SS MCV (RBC) [Entitic vol] 90.0 fL Normal 80.0 - 99.0 fL AO Workflow SS Monocytes (Bld) [#/Vol] 0.4 103/mcL Normal 0.1 - 1.4 10^3/mcL AO Workflow SS Monocytes/100 WBC (Bld) 8.2 % Normal 2.0 - 13.0 % AO Workflow SS Neutrophils (Bld) [#/Vol] 3.0 103/mcL Normal 2.3 - 8.1 10^3/mcL AO Workflow SS Neutrophils/100 WBC (Bld) 63.3 % Normal 50.0 - 75.0 % AO Workflow SS Platelet mean volume (Bld) [Entitic vol] 6.9 fL Normal 6.6 - 10.5 fL AO Workflow SS Platelets (Bld) [#/Vol] 290 103/mcL Normal 150 - 450 10^3/mcL AO Workflow SS Potassium [Moles/Vol] 3.5 mmol/L Normal 3.5 - 5.1 mmol/L AO ADM SS Protein [Mass/Vol] 7.0 G/dL Normal 6.4 - 8.2 G/dL AO ADM SS RBC (Bld) [#/Vol] 3.35 106/mcL Low 4.10 - 5.3 0 10^6/mcL AO Workflow SS Sodium [Moles/Vol] 143 mmol/L Normal 136 - 145 mmol/L AO ADM SS TSH Qn 4.13 m[IU]/L High 0.36 - 3.74 mcIU/mL AO ADM SS Urea nitrogen [Mass/Vol] 11 mg/dL Normal 7 - 18 mg/dL AO ADM SS Urea nitrogen/Creatinine [Mass ratio] 13 ratio Normal 7 - 27 ratio AO ADM SS WBC (Bld) [#/Vol] 4.7 103/mcL Normal 4.5 - 10.8 10^3/mcL AO Workflow SS LABORATORYOrdered By: Stanley Bueno on 02-10-2025 Cholesterol [Mass/Vol] 115 mg/dL Normal 0 - 200 mg/dL AO ADM SS Comment on above: Interpretive Data: C holesterol Reference Interval: Less than 200 Desirable 200-239 Borderline high risk 240 and above High risk Cholesterol in HDL [Mass/Vol] 35 mg/dL Low 40 - 60 mg/dL AO ADM SS Cholesterol in LDL [Mass/Vol] 46 mg/dL Normal 0 - 130 mg/dL AO ADM SS Triglyceride [Mass/Vol] 170 mg/dL High 0 - 150 mg/dL AO ADM SS Comment on above: Interpretive Data: T riglyceride Reference Interval: Less than 150 Normal 150-199 Borderline high risk 200-499 High risk 500 or higher Very high risk LIPIDon 02-10-2025 Cholesterol [Mass/Vol] 115 mg/dL Normal 0-200 [facility] Comment on above: Result Comment: Chol esterol Reference Interval: Less than 200 Desirable 200-239 Borderline high risk 240 and above High risk Performed By: #### A 1C, FT4, ANEU, GFR, LIPID, CBC, CMP, TSH, ADIFF #### [place] [address] Cholesterol in HDL [Mass/Vol] 35 mg/dL Low 40-60 [facility] Comment on above: Performed By: #### A 1C, FT4, ANEU, GFR, LIPID, CBC, CMP, TSH, ADIFF #### [place] [address] Cholesterol in LDL [Mass/Vol] 46 mg/dL Normal 0-130 [facility] Comment on above: Performed By: #### A 1C, FT4, ANEU, GFR, LIPID, CBC, CMP, TSH, ADIFF #### [place] [address] Triglyceride [Mass/Vol] 170 mg/dL High 0-150 [facility] Comment on above: Result Comment: Trig lyceride Reference Interval: Less than 150 Normal 150-199 Borderline high risk 200-499 High risk 500 or higher Very high risk Performed By: #### A 1C, FT4, ANEU, GFR, LIPID, CBC, CMP, TSH, ADIFF #### [place] [id number] TSHon 02-10-2025 TSH Qn 4.13 m[IU]/L High 0.36-3.74 [facility] Comment on above: Performed By: #### A 1C, FT4, ANEU, GFR, LIPID, CBC, CMP, TSH, ADIFF #### [place] [id number] LABORATORYOrdered By: Dhruv Cook on 01-30-2025 Glucose [Mass/Vol] 167 mg/dL High 82 - 115 mg/dL [facility] HbA1c (Bld) [Mass fraction] 6.6 % [facility] Lab Performed By Dhruv Cook PharmD [facility] Lab Performing Location [facility] LABORATORYOrdered By: Dhruv Cook on 01-02-2025 Glucose [Mass/Vol] 151 mg/dL High 82 - 115 mg/dL [facility] .Auto Diffon 10-21-2024 Basophil, Absolute 0.1 10 3/mcL Normal 0.0-0.2 [facility] Comment on above: Performed By: #### T SH, GFR, CBC, LIPID, A1C, ADIFF, CMP, ANEU, FT4 ####[address] [place], [place] [address] Basophils/100 WBC (Bld) 0.9 % Normal 0.0-2.5 [facility] Comment on above: Performed By: #### T SH, GFR, CBC, LIPID, A1C, ADIFF, CMP, ANEU, FT4 ####[facility] [place], [place] [address] Eosinophil, Absolute 0.2 10 3/mcL Normal 0.0-0.7 [facility] Comment on above: Performed By: #### T SH, GFR, CBC, LIPID, A1C, ADIFF, CMP, ANEU, FT4 ####[facility] [place] [id number] Eosinophils/100 WBC (Bld) 3.2 % Normal 0.0-7.0 [facility] Comment on above: Performed By: #### T SH, GFR, CBC, LIPID, A1C, ADIFF, CMP, ANEU, FT4 ####[address] [place], [place] [address] Lymphocyte, Absolute 1.3 10 3/mcL Normal 0.9-4.3 [facility] Comment on above: Performed By: #### T SH, GFR, CBC, LIPID, A1C, ADIFF, CMP, ANEU, FT4 ####[address] [place], [place] [address] Lymphocytes/100 WBC (Bld) 19.3 % Low 20.0-40.0 [facility] Comment on above: Performed By: #### T SH, GFR, CBC, LIPID, A1C, ADIFF, CMP, ANEU, FT4 ####[address] [place], [place] [address] Monocyte, Absolute 0.5 10 3/mcL Normal 0.1-1.4 [facility] Comment on above: Performed By: #### T SH, GFR, CBC, LIPID, A1C, ADIFF, CMP, ANEU, FT4 ####[address] [place], [place] [address] Monocytes/100 WBC (Bld) 7.6 % Normal 2.0-13.0 [facility] Comment on above: Performed By: #### T SH, GFR, CBC, LIPID, A1C, ADIFF, CMP, ANEU, FT4 ####[address] [place], [place] [address] Neutrophils/100 WBC (Bld) 69.0 % Normal 50.0-75.0 [facility] Comment on above: Performed By: #### T SH, GFR, CBC, LIPID, A1C, ADIFF, CMP, ANEU, FT4 ####[address] [place], [place] [address] .GFRon 10-21-2024 GFR 56 ml/min/1.73sqm Normal [facility] Comment on above: Result Comment: GFR Population mean for , Non- Americans Ages 20-29 = 116 mL/min/1.73 sq.m. Ages 30-39 = 107 mL/min/1.73 sq.m. Ages 40-49 = 99 mL/min/1.73 sq.m. Ages 50-59 = 93 mL/min/1.73 sq.m. Ages 60-69 = 85 mL/min/1.73 sq.m. Ages 70+ = 75 mL/min/1.73 sq.m. Chronic Kidney Disease: Less than 60 mL/min/1.73 square meters End Stage Renal Disease: Less than 15 mL/min/1.73 square meters Performed By: #### A 1C, FT4, ANEU, GFR, LIPID, CBC, CMP, TSH, ADIFF #### [address] [address] GFR Non- 46 ml/min/1.73sqm Normal [facility] Comment on above: Result Comment: GFR Population mean for , Non- Americans Ages 20-29 = 116 mL/min/1.73 sq.m. Ages 30-39 = 107 mL/min/1.73 sq.m. Ages 40-49 = 99 mL/min/1.73 sq.m. Ages 50-59 = 93 mL/min/1.73 sq.m. Ages 60-69 = 85 mL/min/1.73 sq.m. Ages 70+ = 75 mL/min/1.73 sq.m. Chronic Kidney Disease: Less than 60 mL/min/1.73 square meters End Stage Renal Disease: Less than 15 mL/min/1.73 square meters Performed By: #### A 1C, FT4, ANEU, GFR, LIPID, CBC, CMP, TSH, ADIFF #### [address] [address] .NEUABSon 10-21-2024 Neutrophil, Absolute 4.6 10 3/mcL Normal 2.3-8.1 [facility] Comment on above: Performed By: #### T SH, GFR, CBC, LIPID, A1C, ADIFF, CMP, ANEU, FT4 ####[address] [address] A1Con 10-21-2024 Glucose [Mass/Vol] 183 mg/dL Normal [facility] Comment on above: Result Comment: Eugenia mated Average Glucose calculated by equation ((28.7xA1C)-46.7) Estimated average glucose (eAG) is a calculated value from Hemoglobin A1C and is national account representative of the average blood glucose level in the last 2-3 month period. Normal range: less than 114 mg/dL Performed By: #### A 1C, FT4, ANEU, GFR, LIPID, CBC, CMP, TSH, ADIFF #### [address] [place], [place] [address] HbA1c (Bld) [Mass fraction] 8.0 % High 4.3-6.4 [facility] Comment on above: Performed By: #### A 1C, FT4, ANEU, GFR, LIPID, CBC, CMP, TSH, ADIFF #### [address] [place] [address] [place], [place] [address] CBCon 10-21-2024 Erythrocyte distribution width (RBC) [Ratio] 14.2 % Normal 11.5-15.5 [facility] Comment on above: Performed By: #### T SH, GFR, CBC, LIPID, A1C, ADIFF, CMP, ANEU, FT4 ####[address] [place], [place] [address] Hematocrit (Bld) [Volume fraction] 37.8 % Normal 34.0-46.0 [facility] Comment on above: Performed By: #### T SH, GFR, CBC, LIPID, A1C, ADIFF, CMP, ANEU, FT4 ####L[address] [address] Hgb 12.2 G/dL Normal 12.0-16.0 [facility] Comment on above: Performed By: #### T SH, GFR, CBC, LIPID, A1C, ADIFF, CMP, ANEU, FT4 ####[address] [address] MCH (RBC) [Entitic mass] 30.7 pg Normal 27.0-33.0 [facility] Comment on above: Performed By: #### T SH, GFR, CBC, LIPID, A1C, ADIFF, CMP, ANEU, FT4 ####Lali [address] [address] MCHC 32.2 G/dL Normal 32.0-36.0 [facility] Comment on above: Performed By: #### T SH, GFR, CBC, LIPID, A1C, ADIFF, CMP, ANEU, FT4 ####Lali [address] [address] MCV (RBC) [Entitic vol] 95.2 fL Normal 80.0-99.0 [facility] Comment on above: Performed By: #### T SH, GFR, CBC, LIPID, A1C, ADIFF, CMP, ANEU, FT4 ####[address] [place], [place] [address] Platelet 216 10 3/mcL Normal 150-450 [facility] Comment on above: Performed By: #### T SH, GFR, CBC, LIPID, A1C, ADIFF, CMP, ANEU, FT4 ####[address] [place] [address] Platelet mean volume (Bld) [Entitic vol] 7.6 fL Normal 6.6-10.5 [facility] Comment on above: Performed By: #### T SH, GFR, CBC, LIPID, A1C, ADIFF, CMP, ANEU, FT4 ####[address] [place], [place] [address] RBC 3.96 10 6/mcL Low 4.10-5.30 [facility] Comment on above: Performed By: #### T SH, GFR, CBC, LIPID, A1C, ADIFF, CMP, ANEU, FT4 ####Lali [address] [address] WBC 6.6 10 3/mcL Normal 4.5-10.8 [facility] Comment on above: Performed By: #### T SH, GFR, CBC, LIPID, A1C, ADIFF, CMP, ANEU, FT4 ####[address] [place], [place] [address] CMPon 10-21-2024 Albumin Level 3.4 G/dL Normal 3.4-4.8 [facility] Comment on above: Performed By: #### A 1C, FT4, ANEU, GFR, LIPID, CBC, CMP, TSH, ADIFF #### [address] [place], [place] [address] Albumin/Globulin [Mass ratio] 1.1 {ratio} Normal 1.1-2.5 [facility] Comment on above: Performed By: #### A 1C, FT4, ANEU, GFR, LIPID, CBC, CMP, TSH, ADIFF #### [address] [address] ALP [Catalytic activity/Vol] 71 U/L Normal 40-135 [facility] Comment on above: Performed By: #### A 1C, FT4, ANEU, GFR, LIPID, CBC, CMP, TSH, ADIFF #### [address] [address] ALT [Catalytic activity/Vol] 12 U/L Low 14-59 [facility] Comment on above: Performed By: #### A 1C, FT4, ANEU, GFR, LIPID, CBC, CMP, TSH, ADIFF #### [address] [address] AST [Catalytic activity/Vol] 18 U/L Normal 10-40 [facility] Comment on above: Performed By: #### A 1C, FT4, ANEU, GFR, LIPID, CBC, CMP, TSH, ADIFF #### [address] [address] Bili Total 0.5 mg/dL Normal 0.2-1.0 [facility] Comment on above: Result Comment: Use of this assay is not recommended for patients undergoing treatment with eltrombopag due to the potential for falsely elevated results. Performed By: #### A 1C, FT4, ANEU, GFR, LIPID, CBC, CMP, TSH, ADIFF #### [address] [address] BUN/Creatinine Ratio 16 ratio Normal 7-27 [facility] Comment on above: Performed By: #### A 1C, FT4, ANEU, GFR, LIPID, CBC, CMP, TSH, ADIFF #### [address] [address] Calcium [Mass/Vol] 9.0 mg/dL Normal 8.4-10.2 [facility] Comment on above: Performed By: #### A 1C, FT4, ANEU, GFR, LIPID, CBC, CMP, TSH, ADIFF #### [address] [address] Chloride [Moles/Vol] 106 mmol/L Normal 98-107 [facility] Comment on above: Performed By: #### A 1C, FT4, ANEU, GFR, LIPID, CBC, CMP, TSH, ADIFF #### [address] [address] CO2 [Moles/Vol] 26 mmol/L Normal 23-31 [facility] Comment on above: Performed By: #### A 1C, FT4, ANEU, GFR, LIPID, CBC, CMP, TSH, ADIFF #### [address] [address] Creatinine [Mass/Vol] 1.13 mg/dL High 0.55-1.02 [facility] Comment on above: Result Comment: Test ing performed on Variable Dimension EXL analyzer using a modified kinetic Eusebio technique. Performed By: #### A 1C, FT4, ANEU, GFR, LIPID, CBC, CMP, TSH, ADIFF #### [address] [address] Electrolyte Balance 11.0 mEq/L Normal 4.0-15.0 [facility] Comment on above: Performed By: #### A 1C, FT4, ANEU, GFR, LIPID, CBC, CMP, TSH, ADIFF #### [address] [address] Globulin 3.0 G/dL Normal [facility] Comment on above: Performed By: #### A 1C, FT4, ANEU, GFR, LIPID, CBC, CMP, TSH, ADIFF #### [address] [address] Glucose [Mass/Vol] 162 mg/dL High 83-110 [facility] Comment on above: Performed By: #### A 1C, FT4, ANEU, GFR, LIPID, CBC, CMP, TSH, ADIFF #### [address] [address] Potassium [Moles/Vol] 4.0 mmol/L Normal 3.5-5.1 [facility] Comment on above: Performed By: #### A 1C, FT4, ANEU, GFR, LIPID, CBC, CMP, TSH, ADIFF #### [place] [address] [place], [place] [address] Sodium [Moles/Vol] 143 mmol/L Normal 136-145 [facility] Comment on above: Performed By: #### A 1C, FT4, ANEU, GFR, LIPID, CBC, CMP, TSH, ADIFF #### [place] [address] [place], [place] [address] Total Protein 6.4 G/dL Normal 6.4-8.2 [facility] Comment on above: Performed By: #### A 1C, FT4, ANEU, GFR, LIPID, CBC, CMP, TSH, ADIFF #### [place] [address] [place], [place] [address] Urea nitrogen [Mass/Vol] 18 mg/dL Normal 7-18 [facility] Comment on above: Performed By: #### A 1C, FT4, ANEU, GFR, LIPID, CBC, CMP, TSH, ADIFF #### [place] [address] [place], [place] [address] FT4on 10-21-2024 Free T4 [Mass/Vol] 0.97 ng/dL Normal 0.76-1.46 [facility] Comment on above: Performed By: #### A 1C, FT4, ANEU, GFR, LIPID, CBC, CMP, TSH, ADIFF #### [address] [address] LABORATORYOrdered By: SYSTEM SYSTEM on 10-21-2024 Albumin BCP dye [Mass/Vol] 3.4 G/dL Normal 3.4 - 4.8 G/dL AO ADM SS Albumin/Globulin [Mass ratio] 1.1 {ratio} Normal 1.1 - 2.5 ratio AO ADM SS ALP [Catalytic activity/Vol] 71 U/L Normal 40 - 135 U/L AO ADM SS ALT With P-5'-P [Catalytic activity/Vol] 12 U/L Low 14 - 59 U/L AO ADM SS AST With P-5'-P [Catalytic activity/Vol] 18 U/L Normal 10 - 40 U/L AO ADM SS Basophils (Bld) [#/Vol] 0.1 103/mcL Normal 0.0 - 0.2 10^3/mcL AO Workflow SS Basophils/100 WBC (Bld) 0.9 % Normal 0.0 - 2.5 % AO Workflow SS Bilirubin [Mass/Vol] 0.5 mg/dL Normal 0.2 - 1 .0 mg/dL AO ADM SS Comment on above: Interpretive Data: U se of this assay is not recommended for patients undergoing treatment with eltrombopag due to the potential for falsely elevated results. Calcium [Mass/Vol] 9.0 mg/dL Normal 8.4 - 10. 2 mg/dL AO ADM SS Chloride [Moles/Vol] 106 mmol/L Normal 98 - 10 7 mmol/L AO ADM SS CO2 [Moles/Vol] 26 mmol/L Normal 23 - 31 mmol/L AO ADM SS Creatinine [Mass/Vol] 1.13 mg/dL High 0.55 - 1.02 mg/dL AO ADM SS Comment on above: Interpretive Data: T esting performed on Siemens Dimension EXL analyzer using a modified kinetic Eusebio technique. Electrolyte Balance 11.0 mEq/L Normal 4.0 - 15 .0 mEq/L AO ADM SS Eosinophil, Absolute 0.2 103/mcL Normal 0.0 - 0 .7 10^3/mcL AO Workflow SS Eosinophils/100 WBC (Bld) 3.2 % Normal 0.0 - 7.0 % AO Workflow SS Erythrocyte distribution width (RBC) [Ratio] 14.2 % Normal 11.5 - 15.5 % AO Workflow SS Free T4 [Mass/Vol] 0.97 ng/dL Normal 0.76 - 1. 46 ng/dL AO ADM SS GFR/1.73 sq M.predicted among blacks MDRD (S/P/Bld) [Vol rate/Area] 56 ml/min/1.73sqm Invalid Interpretation Code AO Chemistry S Comment on above: Interpretive Data: GFR Population mean for , Non- Americans Ages 20-29 = 116 mL/min/1.73 sq.m. Ages 30-39 = 107 mL/min/1.73 sq.m. Ages 40-49 = 99 mL/min/1.73 sq.m. Ages 50-59 = 93 mL/min/1.73 sq.m. Ages 60-69 = 85 mL/min/1.73 sq.m. Ages 70+ = 75 mL/min/1.73 sq.m. Chronic Kidney Disease: Less than 60 mL/min/1.73 square meters End Stage Renal Disease: Less than 15 mL/min/1.73 square meters GFR/1.73 sq M.predicted among non-blacks MDRD (S/P/Bld) [Vol rate/Area] 46 ml/min/1.73sqm Invalid Interpretation Code AO Chemistry S Comment on above: Interpretive Data: GFR Population mean for , Non- Americans Ages 20-29 = 116 mL/min/1.73 sq.m. Ages 30-39 = 107 mL/min/1.73 sq.m. Ages 40-49 = 99 mL/min/1.73 sq.m. Ages 50-59 = 93 mL/min/1.73 sq.m. Ages 60-69 = 85 mL/min/1.73 sq.m. Ages 70+ = 75 mL/min/1.73 sq.m. Chronic Kidney Disease: Less than 60 mL/min/1.73 square meters End Stage Renal Disease: Less than 15 mL/min/1.73 square meters Globulin 3.0 G/dL Invalid Interpretation Code AO ADM SS Glucose [Mass/Vol] 162 mg/dL High 83 - 110 mg/dL AO ADM SS Glucose [Mass/Vol] 183 mg/dL Invalid Interpretation Code AO Chemistry S Comment on above: Interpretive Data: E stimated average glucose (eAG) is a calculated value from Hemoglobin A1C and is national account representative of the average blood glucose level in the last 2-3 month period. Normal range: less than 114 mg/dL HbA1c (Bld) [Mass fraction] 8.0 % High 4.3 - 6.4 % AO ADM SS Hematocrit (Bld) [Volume fraction] 37.8 % Normal 34.0 - 46.0 % AO Workflow SS Hemoglobin (Bld) [Mass/Vol] 12.2 G/dL Normal 12.0 - 16.0 G/dL AO Workflow SS Lymphocytes (Bld) [#/Vol] 1.3 103/mcL Normal 0.9 - 4.3 10^3/mcL AO Workflow SS Lymphocytes/100 WBC (Bld) 19.3 % Low 20.0 - 40.0 % AO Workflow SS MCH (RBC) [Entitic mass] 30.7 pg Normal 27.0 - 33.0 pg AO Workflow SS MCHC 32.2 G/dL Normal 32.0 - 36.0 G/dL AO Workflow SS MCV (RBC) [Entitic vol] 95.2 fL Normal 80.0 - 99.0 fL AO Workflow SS Monocytes (Bld) [#/Vol] 0.5 103/mcL Normal 0.1 - 1.4 10^3/mcL AO Workflow SS Monocytes/100 WBC (Bld) 7.6 % Normal 2.0 - 13.0 % AO Workflow SS Neutrophils (Bld) [#/Vol] 4.6 103/mcL Normal 2.3 - 8.1 10^3/mcL AO Workflow SS Neutrophils/100 WBC (Bld) 69.0 % Normal 50.0 - 75.0 % AO Workflow SS Platelet mean volume (Bld) [Entitic vol] 7.6 fL Normal 6.6 - 10.5 fL AO Workflow SS Platelets (Bld) [#/Vol] 216 103/mcL Normal 150 - 450 10^3/mcL AO Workflow SS Potassium [Moles/Vol] 4.0 mmol/L Normal 3.5 - 5.1 mmol/L AO ADM SS Protein [Mass/Vol] 6.4 G/dL Normal 6.4 - 8.2 G/dL AO ADM SS RBC (Bld) [#/Vol] 3.96 106/mcL Low 4.10 - 5.3 0 10^6/mcL AO Workflow SS Sodium [Moles/Vol] 143 mmol/L Normal 136 - 145 mmol/L AO ADM SS TSH Qn 1.72 m[IU]/L Normal 0.36 - 3.74 mcIU/mL AO ADM SS Urea nitrogen [Mass/Vol] 18 mg/dL Normal 7 - 18 mg/dL AO ADM SS Urea nitrogen/Creatinine [Mass ratio] 16 ratio Normal 7 - 27 ratio AO ADM SS WBC (Bld) [#/Vol] 6.6 103/mcL Normal 4.5 - 10.8 10^3/mcL AO Workflow SS LABORATORYOrdered By: Gianni Ann on 10-21-2024 Cholesterol [Mass/Vol] 149 mg/dL Normal 0 - 200 mg/dL AO ADM SS Comment on above: Interpretive Data: C holesterol Reference Interval: Less than 200 Desirable 200-239 Borderline high risk 240 and above High risk Cholesterol in HDL [Mass/Vol] 38 mg/dL Low 40 - 60 mg/dL AO ADM SS Cholesterol in LDL [Mass/Vol] 75 mg/dL Normal 0 - 130 mg/dL AO ADM SS Triglyceride [Mass/Vol] 181 mg/dL High 0 - 150 mg/dL AO ADM SS Comment on above: Interpretive Data: T riglyceride Reference Interval: Less than 150 Normal 150-199 Borderline high risk 200-499 High risk 500 or higher Very high risk LIPIDon 10-21-2024 Cholesterol [Mass/Vol] 149 mg/dL Normal 0-200 [facility] Comment on above: Result Comment: Chol esterol Reference Interval: Less than 200 Desirable 200-239 Borderline high risk 240 and above High risk Performed By: #### A 1C, FT4, ANEU, GFR, LIPID, CBC, CMP, TSH, ADIFF #### [address] [address] Cholesterol in HDL [Mass/Vol] 38 mg/dL Low 40-60 [facility] Comment on above: Performed By: #### A 1C, FT4, ANEU, GFR, LIPID, CBC, CMP, TSH, ADIFF #### [address] [address] Cholesterol in LDL [Mass/Vol] 75 mg/dL Normal 0-130 [facility] Comment on above: Performed By: #### A 1C, FT4, ANEU, GFR, LIPID, CBC, CMP, TSH, ADIFF #### [address] [address] Triglyceride [Mass/Vol] 181 mg/dL High 0-150 [facility] Comment on above: Result Comment: Trig lyceride Reference Interval: Less than 150 Normal 150-199 Borderline high risk 200-499 High risk 500 or higher Very high risk Performed By: #### A 1C, FT4, ANEU, GFR, LIPID, CBC, CMP, TSH, ADIFF #### [address] [address] TSHon 10-21-2024 TSH Qn 1.72 m[IU]/L Normal 0.36-3.74 [facility] Comment on above: Performed By: #### A 1C, FT4, ANEU, GFR, LIPID, CBC, CMP, TSH, ADIFF #### [place] [address] LABORATORYOrdered By: SYSTEM SYSTEM on 07-10-2024 Albumin BCP dye [Mass/Vol] 3.7 G/dL Normal 3.4 - 4.8 G/dL AO ADM SS Albumin/Globulin [Mass ratio] 1.2 {ratio} Normal 1.1 - 2.5 ratio AO ADM SS ALP [Catalytic activity/Vol] 86 U/L Normal 40 - 135 U/L AO ADM SS ALT With P-5'-P [Catalytic activity/Vol] 42 U/L Normal 14 - 59 U/L AO ADM SS AST With P-5'-P [Catalytic activity/Vol] 26 U/L Normal 10 - 40 U/L AO ADM SS Basophils (Bld) [#/Vol] 0.0 103/mcL Normal 0.0 - 0.2 10^3/mcL AO Workflow SS Basophils/100 WBC (Bld) 0.5 % Normal 0.0 - 2.5 % AO Workflow SS Bilirubin [Mass/Vol] 0.7 mg/dL Normal 0.2 - 1 .0 mg/dL AO ADM SS Comment on above: Interpretive Data: U se of this assay is not recommended for patients undergoing treatment with eltrombopag due to the potential for falsely elevated results. Calcium [Mass/Vol] 9.3 mg/dL Normal 8.4 - 10. 2 mg/dL AO ADM SS Chloride [Moles/Vol] 103 mmol/L Normal 98 - 10 7 mmol/L AO ADM SS CO2 [Moles/Vol] 29 mmol/L Normal 23 - 31 mmol/L AO ADM SS Creatinine [Mass/Vol] 1.27 mg/dL High 0.55 - 1.02 mg/dL AO ADM SS Comment on above: Interpretive Data: T esting performed on Siemens Dimension EXL analyzer using a modified kinetic Eusebio technique. Electrolyte Balance 10.0 mEq/L Normal 4.0 - 15 .0 mEq/L AO ADM SS Eosinophil, Absolute 0.1 103/mcL Normal 0.0 - 0 .7 10^3/mcL AO Workflow SS Eosinophils/100 WBC (Bld) 2.2 % Normal 0.0 - 7.0 % AO Workflow SS Erythrocyte distribution width (RBC) [Ratio] 15.8 % High 11.5 - 15.5 % AO Workflow SS Free T4 [Mass/Vol] 0.86 ng/dL Normal 0.76 - 1. 46 ng/dL AO ADM SS GFR/1.73 sq M.predicted among blacks MDRD (S/P/Bld) [Vol rate/Area] 49 ml/min/1.73sqm Invalid Interpretation Code AO Chemistry S Comment on above: Interpretive Data: GFR Population mean for , Non- Americans Ages 20-29 = 116 mL/min/1.73 sq.m. Ages 30-39 = 107 mL/min/1.73 sq.m. Ages 40-49 = 99 mL/min/1.73 sq.m. Ages 50-59 = 93 mL/min/1.73 sq.m. Ages 60-69 = 85 mL/min/1.73 sq.m. Ages 70+ = 75 mL/min/1.73 sq.m. Chronic Kidney Disease: Less than 60 mL/min/1.73 square meters End Stage Renal Disease: Less than 15 mL/min/1.73 square meters GFR/1.73 sq M.predicted among non-blacks MDRD (S/P/Bld) [Vol rate/Area] 40 ml/min/1.73sqm Invalid Interpretation Code AO Chemistry S Comment on above: Interpretive Data: GFR Population mean for , Non- Americans Ages 20-29 = 116 mL/min/1.73 sq.m. Ages 30-39 = 107 mL/min/1.73 sq.m. Ages 40-49 = 99 mL/min/1.73 sq.m. Ages 50-59 = 93 mL/min/1.73 sq.m. Ages 60-69 = 85 mL/min/1.73 sq.m. Ages 70+ = 75 mL/min/1.73 sq.m. Chronic Kidney Disease: Less than 60 mL/min/1.73 square meters End Stage Renal Disease: Less than 15 mL/min/1.73 square meters Globulin 3.0 G/dL Invalid Interpretation Code AO ADM SS Glucose [Mass/Vol] 166 mg/dL High 83 - 110 mg/dL AO ADM SS Glucose [Mass/Vol] 174 mg/dL Invalid Interpretation Code AO Chemistry S Comment on above: Interpretive Data: E stimated average glucose (eAG) is a calculated value from Hemoglobin A1C and is national account representative of the average blood glucose level in the last 2-3 month period. Normal range: less than 114 mg/dL HbA1c (Bld) [Mass fraction] 7.7 % High 4.3 - 6.4 % AO ADM SS Hematocrit (Bld) [Volume fraction] 38.9 % Normal 34.0 - 46.0 % AO Workflow SS Hemoglobin (Bld) [Mass/Vol] 12.8 G/dL Normal 12.0 - 16.0 G/dL AO Workflow SS Lymphocytes (Bld) [#/Vol] 1.7 103/mcL Normal 0.9 - 4.3 10^3/mcL AO Workflow SS Lymphocytes/100 WBC (Bld) 24.7 % Normal 20.0 - 40.0 % AO Workflow SS MCH (RBC) [Entitic mass] 32.1 pg Normal 27.0 - 33.0 pg AO Workflow SS MCHC 33.0 G/dL Normal 32.0 - 36.0 G/dL AO Workflow SS MCV (RBC) [Entitic vol] 97.2 fL Normal 80.0 - 99.0 fL AO Workflow SS Monocytes (Bld) [#/Vol] 0.6 103/mcL Normal 0.1 - 1.4 10^3/mcL AO Workflow SS Monocytes/100 WBC (Bld) 8.4 % Normal 2.0 - 13.0 % AO Workflow SS Neutrophils (Bld) [#/Vol] 4.3 103/mcL Normal 2.3 - 8.1 10^3/mcL AO Workflow SS Neutrophils/100 WBC (Bld) 64.2 % Normal 50.0 - 75.0 % AO Workflow SS Platelet mean volume (Bld) [Entitic vol] 7.4 fL Normal 6.6 - 10.5 fL AO Workflow SS Platelets (Bld) [#/Vol] 249 103/mcL Normal 150 - 450 10^3/mcL AO Workflow SS Potassium [Moles/Vol] 4.2 mmol/L Normal 3.5 - 5.1 mmol/L AO ADM SS Protein [Mass/Vol] 6.7 G/dL Normal 6.4 - 8.2 G/dL AO ADM SS RBC (Bld) [#/Vol] 4.00 106/mcL Low 4.10 - 5.3 0 10^6/mcL AO Workflow SS Sodium [Moles/Vol] 142 mmol/L Normal 136 - 145 mmol/L AO ADM SS TSH Qn 1.96 m[IU]/L Normal 0.36 - 3.74 mcIU/mL AO ADM SS Urea nitrogen [Mass/Vol] 17 mg/dL Normal 7 - 18 mg/dL AO ADM SS Urea nitrogen/Creatinine [Mass ratio] 13 ratio Normal 7 - 27 ratio AO ADM SS WBC (Bld) [#/Vol] 6.7 103/mcL Normal 4.5 - 10.8 10^3/mcL AO Workflow SS LABORATORYOrdered By: Olayinka Leone on 07-10-2024 Cholesterol [Mass/Vol] 185 mg/dL Normal 0 - 200 mg/dL AO ADM SS Comment on above: Interpretive Data: C holesterol Reference Interval: Less than 200 Desirable 200-239 Borderline high risk 240 and above High risk Cholesterol in HDL [Mass/Vol] 50 mg/dL Normal 40 - 60 mg/dL AO ADM SS Cholesterol in LDL [Mass/Vol] 100 mg/dL Normal 0 - 130 mg/dL AO ADM SS Triglyceride [Mass/Vol] 174 mg/dL High 0 - 150 mg/dL AO ADM SS Comment on above: Interpretive Data: T riglyceride Reference Interval: Less than 150 Normal 150-199 Borderline high risk 200-499 High risk 500 or higher Very high risk .GFRon 04-03-2024 GFR 60 ml/min/1.73sqm Normal [facility] ([place]) Comment on above: Result Comment: GFR Population mean for , Non- Americans Ages 20-29 = 116 mL/min/1.73 sq.m. Ages 30-39 = 107 mL/min/1.73 sq.m. Ages 40-49 = 99 mL/min/1.73 sq.m. Ages 50-59 = 93 mL/min/1.73 sq.m. Ages 60-69 = 85 mL/min/1.73 sq.m. Ages 70+ = 75 mL/min/1.73 sq.m. Chronic Kidney Disease: Less than 60 mL/min/1.73 square meters End Stage Renal Disease: Less than 15 mL/min/1.73 square meters Performed By: #### G FR, A1C, CMP, LIPID, TSH #### [place] [id number] GFR Non- 50 ml/min/1.73sqm Normal [facility] ([place]) Comment on above: Result Comment: GFR Population mean for , Non- Americans Ages 20-29 = 116 mL/min/1.73 sq.m. Ages 30-39 = 107 mL/min/1.73 sq.m. Ages 40-49 = 99 mL/min/1.73 sq.m. Ages 50-59 = 93 mL/min/1.73 sq.m. Ages 60-69 = 85 mL/min/1.73 sq.m. Ages 70+ = 75 mL/min/1.73 sq.m. Chronic Kidney Disease: Less than 60 mL/min/1.73 square meters End Stage Renal Disease: Less than 15 mL/min/1.73 square meters Performed By: #### G FR, A1C, CMP, LIPID, TSH #### [address] [id number] A1Con 04-03-2024 HbA1c (Bld) [Mass fraction] 7.9 % High 4.3-6.4 [facility] ([place]) Comment on above: Performed By: #### G FR, A1C, CMP, LIPID, TSH #### [address] [address] CMPon 04-03-2024 Albumin Level 3.6 G/dL Normal 3.4-4.8 [facility] ([place]) Comment on above: Performed By: #### G FR, A1C, CMP, LIPID, TSH #### [address] [address] Albumin/Globulin [Mass ratio] 1.1 {ratio} Normal 1.1-2.5 [facility]) Comment on above: Performed By: #### G FR, A1C, CMP, LIPID, TSH #### [address] [address] ALP [Catalytic activity/Vol] 101 U/L Normal 40-135 [facility] ([place]) Comment on above: Performed By: #### G FR, A1C, CMP, LIPID, TSH #### [address] [address] ALT [Catalytic activity/Vol] 36 U/L Normal 14-59 [facility] ([place]) Comment on above: Performed By: #### G FR, A1C, CMP, LIPID, TSH #### [address] [address] AST [Catalytic activity/Vol] 18 U/L Normal 10-40 [facility] ([place]) Comment on above: Performed By: #### G FR, A1C, CMP, LIPID, TSH #### [address] [address] Bili Total 0.6 mg/dL Normal 0.2-1.0 [facility] ([place]) Comment on above: Result Comment: Use of this assay is not recommended for patients undergoing treatment with eltrombopag due to the potential for falsely elevated results. Performed By: #### G FR, A1C, CMP, LIPID, TSH #### [address] [address] BUN/Creatinine Ratio 16 ratio Normal 7-27 [facility] ([place]) Comment on above: Performed By: #### G FR, A1C, CMP, LIPID, TSH #### [address] [address] [address] Calcium [Mass/Vol] 8.8 mg/dL Normal 8.4-10.2 [facility] ([place]) Comment on above: Performed By: #### G FR, A1C, CMP, LIPID, TSH #### [address] [address] Chloride [Moles/Vol] 104 mmol/L Normal 98-107 [facility] ([place]) Comment on above: Performed By: #### G FR, A1C, CMP, LIPID, TSH #### [address] [address] CO2 [Moles/Vol] 31 mmol/L Normal 23-31 [facility] ([place]) Comment on above: Performed By: #### G FR, A1C, CMP, LIPID, TSH #### [address] [address] Creatinine [Mass/Vol] 1.06 mg/dL High 0.55-1.02 [facility] ([place]) Comment on above: Performed By: #### G FR, A1C, CMP, LIPID, TSH #### [address] [address] Electrolyte Balance 8.0 mEq/L Normal 4.0-15.0 [facility] ([place]) Comment on above: Performed By: #### G FR, A1C, CMP, LIPID, TSH #### [place] [address] [address] Globulin 3.2 G/dL Normal [facility] ([place]) Comment on above: Performed By: #### G FR, A1C, CMP, LIPID, TSH #### [place] [address] [address] Glucose [Mass/Vol] 167 mg/dL High 83-110 [facility] ([place] Comment on above: Performed By: #### G FR, A1C, CMP, LIPID, TSH #### [address] [address] Potassium [Moles/Vol] 4.5 mmol/L Normal 3.5-5.1 [facility] ([place] Comment on above: Performed By: #### G FR, A1C, CMP, LIPID, TSH #### [address] [address] Sodium [Moles/Vol] 143 mmol/L Normal 136-145 [facility] ([place] Comment on above: Performed By: #### G FR, A1C, CMP, LIPID, TSH #### [address] [address] Total Protein 6.8 G/dL Normal 6.4-8.2 [facility] ([place] Comment on above: Performed By: #### G FR, A1C, CMP, LIPID, TSH #### [address] [address] Urea nitrogen [Mass/Vol] 17 mg/dL Normal 7-18 [facility] ([place] Comment on above: Performed By: #### G FR, A1C, CMP, LIPID, TSH #### [place] [id number] [place], [place] [address] LABORATORYOrdered By: SYSTEM SYSTEM on 04-03-2024 Albumin BCP dye [Mass/Vol] 3.6 G/dL Normal 3.4 - 4.8 G/dL AO ADM SS Albumin/Globulin [Mass ratio] 1.1 {ratio} Normal 1.1 - 2.5 ratio AO ADM SS ALP [Catalytic activity/Vol] 101 U/L Normal 40 - 135 U/L AO ADM SS ALT With P-5'-P [Catalytic activity/Vol] 36 U/L Normal 14 - 59 U/L AO ADM SS AST With P-5'-P [Catalytic activity/Vol] 18 U/L Normal 10 - 40 U/L AO ADM SS Bilirubin [Mass/Vol] 0.6 mg/dL Normal 0.2 - 1 .0 mg/dL AO ADM SS Comment on above: Interpretive Data: U se of this assay is not recommended for patients undergoing treatment with eltrombopag due to the potential for falsely elevated results. Calcium [Mass/Vol] 8.8 mg/dL Normal 8.4 - 10. 2 mg/dL AO ADM SS Chloride [Moles/Vol] 104 mmol/L Normal 98 - 10 7 mmol/L AO ADM SS CO2 [Moles/Vol] 31 mmol/L Normal 23 - 31 mmol/L AO ADM SS Creatinine [Mass/Vol] 1.06 mg/dL High 0.55 - 1.02 mg/dL AO ADM SS Electrolyte Balance 8.0 mEq/L Normal 4.0 - 15 .0 mEq/L AO ADM SS GFR/1.73 sq M.predicted among blacks MDRD (S/P/Bld) [Vol rate/Area] 60 ml/min/1.73sqm Invalid Interpretation Code AO Chemistry S Comment on above: Interpretive Data: GFR Population mean for , Non- Americans Ages 20-29 = 116 mL/min/1.73 sq.m. Ages 30-39 = 107 mL/min/1.73 sq.m. Ages 40-49 = 99 mL/min/1.73 sq.m. Ages 50-59 = 93 mL/min/1.73 sq.m. Ages 60-69 = 85 mL/min/1.73 sq.m. Ages 70+ = 75 mL/min/1.73 sq.m. Chronic Kidney Disease: Less than 60 mL/min/1.73 square meters End Stage Renal Disease: Less than 15 mL/min/1.73 square meters GFR/1.73 sq M.predicted among non-blacks MDRD (S/P/Bld) [Vol rate/Area] 50 ml/min/1.73sqm Invalid Interpretation Code AO Chemistry S Comment on above: Interpretive Data: GFR Population mean for , Non- Americans Ages 20-29 = 116 mL/min/1.73 sq.m. Ages 30-39 = 107 mL/min/1.73 sq.m. Ages 40-49 = 99 mL/min/1.73 sq.m. Ages 50-59 = 93 mL/min/1.73 sq.m. Ages 60-69 = 85 mL/min/1.73 sq.m. Ages 70+ = 75 mL/min/1.73 sq.m. Chronic Kidney Disease: Less than 60 mL/min/1.73 square meters End Stage Renal Disease: Less than 15 mL/min/1.73 square meters Globulin 3.2 G/dL Invalid Interpretation Code AO ADM SS Glucose [Mass/Vol] 167 mg/dL High 83 - 110 mg/dL AO ADM SS HbA1c (Bld) [Mass fraction] 7.9 % High 4.3 - 6.4 % AO ADM SS Potassium [Moles/Vol] 4.5 mmol/L Normal 3.5 - 5.1 mmol/L AO ADM SS Protein [Mass/Vol] 6.8 G/dL Normal 6.4 - 8.2 G/dL AO ADM SS Sodium [Moles/Vol] 143 mmol/L Normal 136 - 145 mmol/L AO ADM SS TSH Qn 2.17 m[IU]/L Normal 0.36 - 3.74 mcIU/mL AO ADM SS Urea nitrogen [Mass/Vol] 17 mg/dL Normal 7 - 18 mg/dL AO ADM SS Urea nitrogen/Creatinine [Mass ratio] 16 ratio Normal 7 - 27 ratio AO ADM SS LABORATORYOrdered By: Stanley Bueno on 04-03-2024 Cholesterol [Mass/Vol] 167 mg/dL Normal 0 - 200 mg/dL AO ADM SS Comment on above: Interpretive Data: C holesterol Reference Interval: Less than 200 Desirable 200-239 Borderline high risk 240 and above High risk Cholesterol in HDL [Mass/Vol] 40 mg/dL Normal 40 - 60 mg/dL AO ADM SS Cholesterol in LDL [Mass/Vol] 77 mg/dL Normal 0 - 130 mg/dL AO ADM SS Triglyceride [Mass/Vol] 251 mg/dL High 0 - 150 mg/dL AO ADM SS Comment on above: Interpretive Data: T riglyceride Reference Interval: Less than 150 Normal 150-199 Borderline high risk 200-499 High risk 500 or higher Very high risk LIPIDon 04-03-2024 Cholesterol [Mass/Vol] 167 mg/dL Normal 0-200 [facility] ([place]) Comment on above: Result Comment: Chol esterol Reference Interval: Less than 200 Desirable 200-239 Borderline high risk 240 and above High risk Performed By: #### G FR, A1C, CMP, LIPID, TSH #### [address] [address] Cholesterol in HDL [Mass/Vol] 40 mg/dL Normal 40-60 [facility] ([place] Comment on above: Performed By: #### G FR, A1C, CMP, LIPID, TSH #### [address] [address] Cholesterol in LDL [Mass/Vol] 77 mg/dL Normal 0-130 [facility] ([place] Comment on above: Performed By: #### G FR, A1C, CMP, LIPID, TSH #### [address] [address] Triglyceride [Mass/Vol] 251 mg/dL High 0-150 [facility] ([place]) Comment on above: Result Comment: Trig lyceride Reference Interval: Less than 150 Normal 150-199 Borderline high risk 200-499 High risk 500 or higher Very high risk Performed By: #### G FR, A1C, CMP, LIPID, TSH #### [address] [address] TSHon 04-03-2024 TSH Qn 2.17 m[IU]/L Normal 0.36-3.74 [facility] ([place]) Comment on above: Performed By: #### G FR, A1C, CMP, LIPID, TSH #### [place] [id number] .Auto Diffon 01-10-2024 Basophil, Absolute 0.1 10 3/mcL Normal 0.0-0.2 [facility] ([place]) Comment on above: Performed By: #### G FR, A1C, CMP, LIPID, TSH #### [address] [address] Basophils/100 WBC (Bld) 1.0 % Normal 0.0-2.5 [facility] ([place]) Comment on above: Performed By: #### G FR, A1C, CMP, LIPID, TSH #### [address] [address] Eosinophil, Absolute 0.4 10 3/mcL Normal 0.0-0.4 Counts include 234 beds at the [facility] ([place]) Comment on above: Performed By: #### G FR, A1C, CMP, LIPID, TSH #### [address] [address] Eosinophils/100 WBC (Bld) 6.6 % Normal 0.0-7.0 [facility] ([place]) Comment on above: Performed By: #### G FR, A1C, CMP, LIPID, TSH #### [address] [address] Lymphocyte, Absolute 1.1 10 3/mcL Normal 0.8-3.9 Counts include 234 beds at the [facility] ([place]) Comment on above: Performed By: #### G FR, A1C, CMP, LIPID, TSH #### [address] [address] Lymphocytes/100 WBC (Bld) 18.4 % Normal 10.0-50.0 [facility] ([place]) Comment on above: Performed By: #### G FR, A1C, CMP, LIPID, TSH #### [address] [address] Monocyte, Absolute 0.5 10 3/mcL Normal 0.2-1.0 [facility] ([place]) Comment on above: Performed By: #### G FR, A1C, CMP, LIPID, TSH #### [address] [address] Monocytes/100 WBC (Bld) 8.4 % Normal 1.7-13.0 [facility] ([place] Comment on above: Performed By: #### G FR, A1C, CMP, LIPID, TSH #### [address] [address] Neutrophils/100 WBC (Bld) 65.6 % Normal 37.0-80.0 [facility] ([place] Comment on above: Performed By: #### G FR, A1C, CMP, LIPID, TSH #### [address] [address] .GFRon 01-10-2024 GFR 57 ml/min/1.73sqm Normal [facility] ([place]) Comment on above: Result Comment: GFR Population mean for , Non- Americans Ages 20-29 = 116 mL/min/1.73 sq.m. Ages 30-39 = 107 mL/min/1.73 sq.m. Ages 40-49 = 99 mL/min/1.73 sq.m. Ages 50-59 = 93 mL/min/1.73 sq.m. Ages 60-69 = 85 mL/min/1.73 sq.m. Ages 70+ = 75 mL/min/1.73 sq.m. Chronic Kidney Disease: Less than 60 mL/min/1.73 square meters End Stage Renal Disease: Less than 15 mL/min/1.73 square meters Performed By: #### G FR, A1C, CMP, LIPID, TSH #### [address] [address] GFR Non- 47 ml/min/1.73sqm Normal [facility] ([place]) Comment on above: Result Comment: GFR Population mean for , Non- Americans Ages 20-29 = 116 mL/min/1.73 sq.m. Ages 30-39 = 107 mL/min/1.73 sq.m. Ages 40-49 = 99 mL/min/1.73 sq.m. Ages 50-59 = 93 mL/min/1.73 sq.m. Ages 60-69 = 85 mL/min/1.73 sq.m. Ages 70+ = 75 mL/min/1.73 sq.m. Chronic Kidney Disease: Less than 60 mL/min/1.73 square meters End Stage Renal Disease: Less than 15 mL/min/1.73 square meters Performed By: #### G FR, A1C, CMP, LIPID, TSH #### [address] [address] .NEUABSon 01-10-2024 Neutrophil, Absolute 3.9 10 3/mcL Normal 2.9-6.2 Counts include 234 beds at the [facility] ([place] Comment on above: Performed By: #### G FR, A1C, CMP, LIPID, TSH #### [place] [id number] A1Con 01-10-2024 HbA1c (Bld) [Mass fraction] 8.0 % High 4.3-6.4 [facility] ([place] Comment on above: Performed By: #### G FR, A1C, CMP, LIPID, TSH #### [place] [address] CBCon 01-10-2024 Erythrocyte distribution width (RBC) [Ratio] 15.8 % High 11.5-14.5 [facility] ([place] Comment on above: Performed By: #### G FR, A1C, CMP, LIPID, TSH #### [place] [address] Hematocrit (Bld) [Volume fraction] 33.2 % Low 37.0-47.0 [facility] ([place] Comment on above: Performed By: #### G FR, A1C, CMP, LIPID, TSH #### [place] [address] Hgb 10.9 G/dL Low 12.0-16.0 [facility] ([place] Comment on above: Performed By: #### G FR, A1C, CMP, LIPID, TSH #### [place] [address] MCH (RBC) [Entitic mass] 29.8 pg Normal 27.0-31.2 [facility] ([place] Comment on above: Performed By: #### G FR, A1C, CMP, LIPID, TSH #### [address] [address] MCHC 32.8 G/dL Low 33.0-37.0 [facility] ([place]) Comment on above: Performed By: #### G FR, A1C, CMP, LIPID, TSH #### [address] [address] MCV (RBC) [Entitic vol] 90.8 fL Normal 80.0-94.0 [facility] ([place] Comment on above: Performed By: #### G FR, A1C, CMP, LIPID, TSH #### [address] [address] Platelet 202 10 3/mcL Normal 130-400 [facility] ([place] Comment on above: Performed By: #### G FR, A1C, CMP, LIPID, TSH #### [address] [address] Platelet mean volume (Bld) [Entitic vol] 7.6 fL Normal 7.4-10.4 [facility] ([place] Comment on above: Performed By: #### G FR, A1C, CMP, LIPID, TSH #### [address] [address] RBC 3.65 10 6/mcL Low 4.20-5.40 [facility] ([place] Comment on above: Performed By: #### G FR, A1C, CMP, LIPID, TSH #### [address] [address] WBC 5.9 10 3/mcL Normal 4.6-10.8 [facility] ([place] Comment on above: Performed By: #### G FR, A1C, CMP, LIPID, TSH #### [address] [address] CMPon 01-10-2024 Albumin Level 3.5 G/dL Normal 3.4-4.8 [facility] ([place]) Comment on above: Performed By: #### G FR, A1C, CMP, LIPID, TSH #### [address] [address] Albumin/Globulin [Mass ratio] 1.0 {ratio} Low 1.1-2.5 [facility] ([place] Comment on above: Performed By: #### G FR, A1C, CMP, LIPID, TSH #### [address] [address] ALP [Catalytic activity/Vol] 101 U/L Normal 40-135 [facility] ([place]) Comment on above: Performed By: #### G FR, A1C, CMP, LIPID, TSH #### [address] [address] ALT [Catalytic activity/Vol] 21 U/L Normal 14-59 [facility] ([place] Comment on above: Performed By: #### G FR, A1C, CMP, LIPID, TSH #### [address] [address] AST [Catalytic activity/Vol] 17 U/L Normal 10-40 [facility] ([place]) Comment on above: Performed By: #### G FR, A1C, CMP, LIPID, TSH #### [address] [address] Bili Total 0.6 mg/dL Normal 0.2-1.0 [facility] ([place]) Comment on above: Result Comment: Use of this assay is not recommended for patients undergoing treatment with eltrombopag due to the potential for falsely elevated results. Performed By: #### G FR, A1C, CMP, LIPID, TSH #### [address] [address] BUN/Creatinine Ratio 18 ratio Normal 7-27 [facility] ([place]) Comment on above: Performed By: #### G FR, A1C, CMP, LIPID, TSH #### [address] [address] Calcium [Mass/Vol] 8.8 mg/dL Normal 8.4-10.2 [facility] ([place]) Comment on above: Performed By: #### G FR, A1C, CMP, LIPID, TSH #### [address] [address] Chloride [Moles/Vol] 103 mmol/L Normal 98-107 [facility] ([place]) Comment on above: Performed By: #### G FR, A1C, CMP, LIPID, TSH #### [address] [address] CO2 [Moles/Vol] 26 mmol/L Normal 23-31 [facility] ([place]) Comment on above: Performed By: #### G FR, A1C, CMP, LIPID, TSH #### [address] [address] Creatinine [Mass/Vol] 1.11 mg/dL High 0.55-1.02 [facility] ([place]) Comment on above: Performed By: #### G FR, A1C, CMP, LIPID, TSH #### [place] [address] [address] Electrolyte Balance 11.0 mEq/L Normal 4.0-15.0 [facility] ([place]) Comment on above: Performed By: #### G FR, A1C, CMP, LIPID, TSH #### [address] [address] Globulin 3.4 G/dL Normal [facility] ([place]) Comment on above: Performed By: #### G FR, A1C, CMP, LIPID, TSH #### [address] [address] Glucose [Mass/Vol] 163 mg/dL High 83-110 [facility] ([place]) Comment on above: Performed By: #### G FR, A1C, CMP, LIPID, TSH #### [address] [address] Potassium [Moles/Vol] 3.9 mmol/L Normal 3.5-5.1 [facility] ([place] Comment on above: Performed By: #### G FR, A1C, CMP, LIPID, TSH #### [address] [address] Sodium [Moles/Vol] 140 mmol/L Normal 136-145 [facility] ([place] Comment on above: Performed By: #### G FR, A1C, CMP, LIPID, TSH #### [place] [address] [place], [place] [address] Total Protein 6.9 G/dL Normal 6.4-8.2 [facility] ([place] Comment on above: Performed By: #### G FR, A1C, CMP, LIPID, TSH #### [place] [address] [place], [place] [address] Urea nitrogen [Mass/Vol] 20 mg/dL High 7-18 [facility] ([place] Comment on above: Performed By: #### G FR, A1C, CMP, LIPID, TSH #### [place] [address] [place], [place] [address] FT4on 01-10-2024 Free T4 [Mass/Vol] 0.87 ng/dL Normal 0.76-1.46 [facility] ([place] Comment on above: Performed By: #### G FR, A1C, CMP, LIPID, TSH #### [place] [address] [place], [place] [address] LABORATORYOrdered By: SYSTEM SYSTEM on 01-10-2024 Albumin BCP dye [Mass/Vol] 3.5 G/dL Normal 3.4 - 4.8 G/dL AO ADM SS Albumin/Globulin [Mass ratio] 1.0 {ratio} Low 1.1 - 2.5 ratio AO ADM SS ALP [Catalytic activity/Vol] 101 U/L Normal 40 - 135 U/L AO ADM SS ALT With P-5'-P [Catalytic activity/Vol] 21 U/L Normal 14 - 59 U/L AO ADM SS AST With P-5'-P [Catalytic activity/Vol] 17 U/L Normal 10 - 40 U/L AO ADM SS Basophil, Absolute 0.1 103/mcL Normal 0.0 - 0.2 10^3/mcL AO Workflow SS Basophils/100 WBC (Bld) 1.0 % Normal 0.0 - 2.5 % AO Workflow SS Bilirubin [Mass/Vol] 0.6 mg/dL Normal 0.2 - 1 .0 mg/dL AO ADM SS Comment on above: Interpretive Data: U se of this assay is not recommended for patients undergoing treatment with eltrombopag due to the potential for falsely elevated results. Calcium [Mass/Vol] 8.8 mg/dL Normal 8.4 - 10. 2 mg/dL AO ADM SS Chloride [Moles/Vol] 103 mmol/L Normal 98 - 10 7 mmol/L AO ADM SS CO2 [Moles/Vol] 26 mmol/L Normal 23 - 31 mmol/L AO ADM SS Creatinine [Mass/Vol] 1.11 mg/dL High 0.55 - 1.02 mg/dL AO ADM SS Electrolyte Balance 11.0 mEq/L Normal 4.0 - 15 .0 mEq/L AO ADM SS Eosinophil, Absolute 0.4 103/mcL Normal 0.0 - 0 .4 10^3/mcL AO Workflow SS Eosinophils/100 WBC (Bld) 6.6 % Normal 0.0 - 7.0 % AO Workflow SS Erythrocyte distribution width (RBC) [Ratio] 15.8 % High 11.5 - 14.5 % AO Workflow SS Free T4 [Mass/Vol] 0.87 ng/dL Normal 0.76 - 1. 46 ng/dL AO ADM SS GFR/1.73 sq M.predicted among blacks MDRD (S/P/Bld) [Vol rate/Area] 57 ml/min/1.73sqm Invalid Interpretation Code AO Chemistry S Comment on above: Interpretive Data: GFR Population mean for , Non- Americans Ages 20-29 = 116 mL/min/1.73 sq.m. Ages 30-39 = 107 mL/min/1.73 sq.m. Ages 40-49 = 99 mL/min/1.73 sq.m. Ages 50-59 = 93 mL/min/1.73 sq.m. Ages 60-69 = 85 mL/min/1.73 sq.m. Ages 70+ = 75 mL/min/1.73 sq.m. Chronic Kidney Disease: Less than 60 mL/min/1.73 square meters End Stage Renal Disease: Less than 15 mL/min/1.73 square meters GFR/1.73 sq M.predicted among non-blacks MDRD (S/P/Bld) [Vol rate/Area] 47 ml/min/1.73sqm Invalid Interpretation Code AO Chemistry S Comment on above: Interpretive Data: GFR Population mean for , Non- Americans Ages 20-29 = 116 mL/min/1.73 sq.m. Ages 30-39 = 107 mL/min/1.73 sq.m. Ages 40-49 = 99 mL/min/1.73 sq.m. Ages 50-59 = 93 mL/min/1.73 sq.m. Ages 60-69 = 85 mL/min/1.73 sq.m. Ages 70+ = 75 mL/min/1.73 sq.m. Chronic Kidney Disease: Less than 60 mL/min/1.73 square meters End Stage Renal Disease: Less than 15 mL/min/1.73 square meters Globulin 3.4 G/dL Invalid Interpretation Code AO ADM SS Glucose [Mass/Vol] 163 mg/dL High 83 - 110 mg/dL AO ADM SS HbA1c (Bld) [Mass fraction] 8.0 % High 4.3 - 6.4 % AO ADM SS Hematocrit (Bld) [Volume fraction] 33.2 % Low 37.0 - 47.0 % AO Workflow SS Hemoglobin (Bld) [Mass/Vol] 10.9 G/dL Low 12.0 - 16.0 G/dL AO Workflow SS Lymphocyte, Absolute 1.1 103/mcL Normal 0.8 - 3 .9 10^3/mcL AO Workflow SS Lymphocytes/100 WBC (Bld) 18.4 % Normal 10.0 - 50.0 % AO Workflow SS MCH (RBC) [Entitic mass] 29.8 pg Normal 27.0 - 31.2 pg AO Workflow SS MCHC 32.8 G/dL Low 33.0 - 37.0 G/dL AO Workflow SS MCV (RBC) [Entitic vol] 90.8 fL Normal 80.0 - 94.0 fL AO Workflow SS Monocyte, Absolute 0.5 103/mcL Normal 0.2 - 1.0 10^3/mcL AO Workflow SS Monocytes/100 WBC (Bld) 8.4 % Normal 1.7 - 13.0 % AO Workflow SS Neutrophil, Absolute 3.9 103/mcL Normal 2.9 - 6 .2 10^3/mcL AO Workflow SS Neutrophils/100 WBC (Bld) 65.6 % Normal 37.0 - 80.0 % AO Workflow SS Platelet mean volume (Bld) [Entitic vol] 7.6 fL Normal 7.4 - 10.4 fL AO Workflow SS Platelets (Bld) [#/Vol] 202 103/mcL Normal 130 - 400 10^3/mcL AO Workflow SS Potassium [Moles/Vol] 3.9 mmol/L Normal 3.5 - 5.1 mmol/L AO ADM SS Protein [Mass/Vol] 6.9 G/dL Normal 6.4 - 8.2 G/dL AO ADM SS RBC (Bld) [#/Vol] 3.65 106/mcL Low 4.20 - 5.4 0 10^6/mcL AO Workflow SS Sodium [Moles/Vol] 140 mmol/L Normal 136 - 145 mmol/L AO ADM SS TSH Qn 2.46 m[IU]/L Normal 0.36 - 3.74 mcIU/mL AO ADM SS Urea nitrogen [Mass/Vol] 20 mg/dL High 7 - 18 mg/dL AO ADM SS Urea nitrogen/Creatinine [Mass ratio] 18 ratio Normal 7 - 27 ratio AO ADM SS WBC (Bld) [#/Vol] 5.9 103/mcL Normal 4.6 - 10.8 10^3/mcL AO Workflow SS LABORATORYOrdered By: Olayinka Leone on 01-10-2024 Cholesterol [Mass/Vol] 165 mg/dL Normal 0 - 200 mg/dL AO ADM SS Comment on above: Interpretive Data: C holesterol Reference Interval: Less than 200 Desirable 200-239 Borderline high risk 240 and above High risk Cholesterol in HDL [Mass/Vol] 39 mg/dL Low 40 - 60 mg/dL AO ADM SS Cholesterol in LDL [Mass/Vol] 86 mg/dL Normal 0 - 130 mg/dL AO ADM SS Triglyceride [Mass/Vol] 202 mg/dL High 0 - 150 mg/dL AO ADM SS Comment on above: Interpretive Data: T riglyceride Reference Interval: Less than 150 Normal 150-199 Borderline high risk 200-499 High risk 500 or higher Very high risk LIPIDon 01-10-2024 Cholesterol [Mass/Vol] 165 mg/dL Normal 0-200 [facility] ([place] Comment on above: Result Comment: Chol esterol Reference Interval: Less than 200 Desirable 200-239 Borderline high risk 240 and above High risk Performed By: #### G FR, A1C, CMP, LIPID, TSH #### [place] [id number] [place], [place] [address] Cholesterol in HDL [Mass/Vol] 39 mg/dL Low 40-60 [facility] ([place] Comment on above: Performed By: #### G FR, A1C, CMP, LIPID, TSH #### [address] [address] Cholesterol in LDL [Mass/Vol] 86 mg/dL Normal 0-130 [facility] ([place] Comment on above: Performed By: #### G FR, A1C, CMP, LIPID, TSH #### [address] [address] Triglyceride [Mass/Vol] 202 mg/dL High 0-150 [facility] ([place] Comment on above: Result Comment: Trig lyceride Reference Interval: Less than 150 Normal 150-199 Borderline high risk 200-499 High risk 500 or higher Very high risk Performed By: #### G FR, A1C, CMP, LIPID, TSH #### [address] [address] TSHon 01-10-2024 TSH Qn 2.46 m[IU]/L Normal 0.36-3.74 [facility] ([place]) Comment on above: Performed By: #### G FR, A1C, CMP, LIPID, TSH #### [address] [address] .Auto Diffon 09-18-2023 Basophil, Absolute 0.0 10 3/mcL Normal 0.0-0.2 [facility] ([place]) Comment on above: Performed By: #### T SH, ANEU, CBC, ADIFF, A1C, GFR, CMP, URIC, FT4, LIPID #### [address] [address] Basophils/100 WBC (Bld) 0.9 % Normal 0.0-2.5 [facility] ([place] Comment on above: Performed By: #### T SH, ANEU, CBC, ADIFF, A1C, GFR, CMP, URIC, FT4, LIPID #### [address] [address] Eosinophil, Absolute 0.2 10 3/mcL Normal 0.0-0.4 Counts include 234 beds at the [facility] ([place] Comment on above: Performed By: #### T SH, ANEU, CBC, ADIFF, A1C, GFR, CMP, URIC, FT4, LIPID #### [address] [address] Eosinophils/100 WBC (Bld) 3.7 % Normal 0.0-7.0 [facility] ([place] Comment on above: Performed By: #### T SH, ANEU, CBC, ADIFF, A1C, GFR, CMP, URIC, FT4, LIPID #### [address] [address] Lymphocyte, Absolute 1.6 10 3/mcL Normal 0.8-3.9 Counts include 234 beds at the [facility] ([place] Comment on above: Performed By: #### T SH, ANEU, CBC, ADIFF, A1C, GFR, CMP, URIC, FT4, LIPID #### [address] [address] Lymphocytes/100 WBC (Bld) 28.6 % Normal 10.0-50.0 [facility] ([place] Comment on above: Performed By: #### T SH, ANEU, CBC, ADIFF, A1C, GFR, CMP, URIC, FT4, LIPID #### [address] [address] Monocyte, Absolute 0.4 10 3/mcL Normal 0.2-1.0 [facility] ([place]) Comment on above: Performed By: #### T SH, ANEU, CBC, ADIFF, A1C, GFR, CMP, URIC, FT4, LIPID #### [address] [address] Monocytes/100 WBC (Bld) 7.9 % Normal 1.7-13.0 [facility] ([place]) Comment on above: Performed By: #### T SH, ANEU, CBC, ADIFF, A1C, GFR, CMP, URIC, FT4, LIPID #### [address] [address] Neutrophils/100 WBC (Bld) 58.9 % Normal 37.0-80.0 [facility] ([place]) Comment on above: Performed By: #### T SH, ANEU, CBC, ADIFF, A1C, GFR, CMP, URIC, FT4, LIPID #### [address] [address] .GFRon 12-11-2023 GFR 52 ml/min/1.73sqm Normal [facility] ([place]) Comment on above: Result Comment: GFR Population mean for , Non- Americans Ages 20-29 = 116 mL/min/1.73 sq.m. Ages 30-39 = 107 mL/min/1.73 sq.m. Ages 40-49 = 99 mL/min/1.73 sq.m. Ages 50-59 = 93 mL/min/1.73 sq.m. Ages 60-69 = 85 mL/min/1.73 sq.m. Ages 70+ = 75 mL/min/1.73 sq.m. Chronic Kidney Disease: Less than 60 mL/min/1.73 square meters End Stage Renal Disease: Less than 15 mL/min/1.73 square meters Performed By: #### G FR, A1C, CMP, LIPID, TSH #### [address] [id number] GFR Non- 43 ml/min/1.73sqm Normal [facility] ([place]) Comment on above: Result Comment: GFR Population mean for , Non- Americans Ages 20-29 = 116 mL/min/1.73 sq.m. Ages 30-39 = 107 mL/min/1.73 sq.m. Ages 40-49 = 99 mL/min/1.73 sq.m. Ages 50-59 = 93 mL/min/1.73 sq.m. Ages 60-69 = 85 mL/min/1.73 sq.m. Ages 70+ = 75 mL/min/1.73 sq.m. Chronic Kidney Disease: Less than 60 mL/min/1.73 square meters End Stage Renal Disease: Less than 15 mL/min/1.73 square meters Performed By: #### G FR, A1C, CMP, LIPID, TSH #### [address] [id number] .NEUABSon 09-18-2023 Neutrophil, Absolute 3.3 10 3/mcL Normal 2.9-6.2 Counts include 234 beds at the [facility] ([place]) Comment on above: Performed By: #### T SH, ANEU, CBC, ADIFF, A1C, GFR, CMP, URIC, FT4, LIPID #### [address] [id number] A1Con 09-18-2023 HbA1c (Bld) [Mass fraction] 7.5 % High 4.3-6.4 [facility] ([place]) Comment on above: Performed By: #### G FR, A1C, CMP, LIPID, TSH #### [place] [id number] CBCon 09-18-2023 Erythrocyte distribution width (RBC) [Ratio] 14.7 % High 11.5-14.5 [facility] ([place]) Comment on above: Performed By: #### T SH, ANEU, CBC, ADIFF, A1C, GFR, CMP, URIC, FT4, LIPID #### [place] [id number] Hematocrit (Bld) [Volume fraction] 34.5 % Low 37.0-47.0 [facility] ([place]) Comment on above: Performed By: #### T SH, ANEU, CBC, ADIFF, A1C, GFR, CMP, URIC, FT4, LIPID #### [address] [address] Hgb 11.2 G/dL Low 12.0-16.0 [facility] ([place]) Comment on above: Performed By: #### T SH, ANEU, CBC, ADIFF, A1C, GFR, CMP, URIC, FT4, LIPID #### [place] [id number] MCH (RBC) [Entitic mass] 30.3 pg Normal 27.0-31.2 [facility] ([place]) Comment on above: Performed By: #### T SH, ANEU, CBC, ADIFF, A1C, GFR, CMP, URIC, FT4, LIPID #### [place] [address] MCHC 32.6 G/dL Low 33.0-37.0 [facility] ([place]) Comment on above: Performed By: #### T SH, ANEU, CBC, ADIFF, A1C, GFR, CMP, URIC, FT4, LIPID #### [address] [id number] MCV (RBC) [Entitic vol] 93.1 fL Normal 80.0-94.0 [facility] ([place]) Comment on above: Performed By: #### T SH, ANEU, CBC, ADIFF, A1C, GFR, CMP, URIC, FT4, LIPID #### [address] [id number] Platelet 202 10 3/mcL Normal 130-400 [facility] ([place]) Comment on above: Performed By: #### T SH, ANEU, CBC, ADIFF, A1C, GFR, CMP, URIC, FT4, LIPID #### [address] [address] Platelet mean volume (Bld) [Entitic vol] 7.6 fL Normal 7.4-10.4 [facility] ([place]) Comment on above: Performed By: #### T SH, ANEU, CBC, ADIFF, A1C, GFR, CMP, URIC, FT4, LIPID #### [address] [address] RBC 3.70 10 6/mcL Low 4.20-5.40 [facility] ([place]) Comment on above: Performed By: #### T SH, ANEU, CBC, ADIFF, A1C, GFR, CMP, URIC, FT4, LIPID #### [address] [address] WBC 5.6 10 3/mcL Normal 4.6-10.8 [facility] ([place] Comment on above: Performed By: #### T SH, ANEU, CBC, ADIFF, A1C, GFR, CMP, URIC, FT4, LIPID #### [address] [address] CMPon 09-18-2023 Albumin Level 3.7 G/dL Normal 3.4-4.8 [facility] ([place]) Comment on above: Performed By: #### G FR, A1C, CMP, LIPID, TSH #### [address] [address] Albumin/Globulin [Mass ratio] 1.2 {ratio} Normal 1.1-2.5 [facility] ([place]) Comment on above: Performed By: #### G FR, A1C, CMP, LIPID, TSH #### [address] [address] ALP [Catalytic activity/Vol] 91 U/L Normal 40-135 [facility] ([place]) Comment on above: Performed By: #### G FR, A1C, CMP, LIPID, TSH #### [address] [address] ALT [Catalytic activity/Vol] 15 U/L Normal 14-59 [facility] ([place] Comment on above: Performed By: #### G FR, A1C, CMP, LIPID, TSH #### [address] [address] AST [Catalytic activity/Vol] 19 U/L Normal 10-40 [facility] ([place]) Comment on above: Performed By: #### G FR, A1C, CMP, LIPID, TSH #### [address] [address] Bili Total 0.3 mg/dL Normal 0.2-1.0 [facility] ([place]) Comment on above: Result Comment: Use of this assay is not recommended for patients undergoing treatment with eltrombopag due to the potential for falsely elevated results. Performed By: #### G FR, A1C, CMP, LIPID, TSH #### [address] [address] BUN/Creatinine Ratio 13 ratio Normal 7-27 [facility] ([place]) Comment on above: Performed By: #### G FR, A1C, CMP, LIPID, TSH #### [address] [address] Calcium [Mass/Vol] 9.4 mg/dL Normal 8.4-10.2 [facility] ([place]) Comment on above: Performed By: #### G FR, A1C, CMP, LIPID, TSH #### [address] [address] Chloride [Moles/Vol] 105 mmol/L Normal 98-107 [facility] ([place]) Comment on above: Performed By: #### G FR, A1C, CMP, LIPID, TSH #### [address] [address] CO2 [Moles/Vol] 27 mmol/L Normal 23-31 [facility] ([place]) Comment on above: Performed By: #### G FR, A1C, CMP, LIPID, TSH #### [address] [address] Creatinine [Mass/Vol] 1.21 mg/dL High 0.55-1.02 [facility] ([place]) Comment on above: Performed By: #### G FR, A1C, CMP, LIPID, TSH #### [address] [address] Electrolyte Balance 11.0 mEq/L Normal 4.0-15.0 [facility] ([place]) Comment on above: Performed By: #### G FR, A1C, CMP, LIPID, TSH #### [address] [address] Globulin 3.1 G/dL Normal [facility] ([place]) Comment on above: Performed By: #### G FR, A1C, CMP, LIPID, TSH #### [address] [address] Glucose [Mass/Vol] 150 mg/dL High 83-110 [facility] ([place]) Comment on above: Performed By: #### G FR, A1C, CMP, LIPID, TSH #### [address] [address] Potassium [Moles/Vol] 3.9 mmol/L Normal 3.5-5.1 [facility] ([place] Comment on above: Performed By: #### G FR, A1C, CMP, LIPID, TSH #### [address] [address] Sodium [Moles/Vol] 143 mmol/L Normal 136-145 [facility] ([place]) Comment on above: Performed By: #### G FR, A1C, CMP, LIPID, TSH #### [address] [address] Total Protein 6.8 G/dL Normal 6.4-8.2 [facility] ([place]) Comment on above: Performed By: #### G FR, A1C, CMP, LIPID, TSH #### [place] [address] [place], [place] [address] Urea nitrogen [Mass/Vol] 16 mg/dL Normal 7-18 [facility] ([place]) Comment on above: Performed By: #### G FR, A1C, CMP, LIPID, TSH #### [place] [address] [address] FT4on 09-18-2023 Free T4 [Mass/Vol] 0.93 ng/dL Normal 0.76-1.46 [facility] ([place]) Comment on above: Performed By: #### T SH, ANEU, CBC, ADIFF, A1C, GFR, CMP, URIC, FT4, LIPID #### [address] [address] LABORATORYOrdered By: SYSTEM SYSTEM on 09-18-2023 Albumin BCP dye [Mass/Vol] 3.7 G/dL Normal 3.4 - 4.8 G/dL AO ADM SS Albumin/Globulin [Mass ratio] 1.2 {ratio} Normal 1.1 - 2.5 ratio AO ADM SS ALP [Catalytic activity/Vol] 91 U/L Normal 40 - 135 U/L AO ADM SS ALT With P-5'-P [Catalytic activity/Vol] 15 U/L Normal 14 - 59 U/L AO ADM SS AST With P-5'-P [Catalytic activity/Vol] 19 U/L Normal 10 - 40 U/L AO ADM SS Basophil, Absolute 0.0 103/mcL Normal 0.0 - 0.2 10^3/mcL AO Workflow SS Basophils/100 WBC (Bld) 0.9 % Normal 0.0 - 2.5 % AO Workflow SS Bilirubin [Mass/Vol] 0.3 mg/dL Normal 0.2 - 1 .0 mg/dL AO ADM SS Comment on above: Interpretive Data: U se of this assay is not recommended for patients undergoing treatment with eltrombopag due to the potential for falsely elevated results. Calcium [Mass/Vol] 9.4 mg/dL Normal 8.4 - 10. 2 mg/dL AO ADM SS Chloride [Moles/Vol] 105 mmol/L Normal 98 - 10 7 mmol/L AO ADM SS CO2 [Moles/Vol] 27 mmol/L Normal 23 - 31 mmol/L AO ADM SS Creatinine [Mass/Vol] 1.21 mg/dL High 0.55 - 1.02 mg/dL AO ADM SS Electrolyte Balance 11.0 mEq/L Normal 4.0 - 15 .0 mEq/L AO ADM SS Eosinophil, Absolute 0.2 103/mcL Normal 0.0 - 0 .4 10^3/mcL AO Workflow SS Eosinophils/100 WBC (Bld) 3.7 % Normal 0.0 - 7.0 % AO Workflow SS Erythrocyte distribution width (RBC) [Ratio] 14.7 % High 11.5 - 14.5 % AO Workflow SS Free T4 [Mass/Vol] 0.93 ng/dL Normal 0.76 - 1. 46 ng/dL AO ADM SS GFR/1.73 sq M.predicted among blacks MDRD (S/P/Bld) [Vol rate/Area] 52 ml/min/1.73sqm Invalid Interpretation Code AO Chemistry S Comment on above: Interpretive Data: GFR Population mean for , Non- Americans Ages 20-29 = 116 mL/min/1.73 sq.m. Ages 30-39 = 107 mL/min/1.73 sq.m. Ages 40-49 = 99 mL/min/1.73 sq.m. Ages 50-59 = 93 mL/min/1.73 sq.m. Ages 60-69 = 85 mL/min/1.73 sq.m. Ages 70+ = 75 mL/min/1.73 sq.m. Chronic Kidney Disease: Less than 60 mL/min/1.73 square meters End Stage Renal Disease: Less than 15 mL/min/1.73 square meters GFR/1.73 sq M.predicted among non-blacks MDRD (S/P/Bld) [Vol rate/Area] 43 ml/min/1.73sqm Invalid Interpretation Code AO Chemistry S Comment on above: Interpretive Data: GFR Population mean for , Non- Americans Ages 20-29 = 116 mL/min/1.73 sq.m. Ages 30-39 = 107 mL/min/1.73 sq.m. Ages 40-49 = 99 mL/min/1.73 sq.m. Ages 50-59 = 93 mL/min/1.73 sq.m. Ages 60-69 = 85 mL/min/1.73 sq.m. Ages 70+ = 75 mL/min/1.73 sq.m. Chronic Kidney Disease: Less than 60 mL/min/1.73 square meters End Stage Renal Disease: Less than 15 mL/min/1.73 square meters Globulin 3.1 G/dL Invalid Interpretation Code AO ADM SS Glucose [Mass/Vol] 150 mg/dL High 83 - 110 mg/dL AO ADM SS HbA1c (Bld) [Mass fraction] 7.5 % High 4.3 - 6.4 % AO ADM SS Hematocrit (Bld) [Volume fraction] 34.5 % Low 37.0 - 47.0 % AO Workflow SS Hemoglobin (Bld) [Mass/Vol] 11.2 G/dL Low 12.0 - 16.0 G/dL AO Workflow SS Lymphocyte, Absolute 1.6 103/mcL Normal 0.8 - 3 .9 10^3/mcL AO Workflow SS Lymphocytes/100 WBC (Bld) 28.6 % Normal 10.0 - 50.0 % AO Workflow SS MCH (RBC) [Entitic mass] 30.3 pg Normal 27.0 - 31.2 pg AO Workflow SS MCHC 32.6 G/dL Low 33.0 - 37.0 G/dL AO Workflow SS MCV (RBC) [Entitic vol] 93.1 fL Normal 80.0 - 94.0 fL AO Workflow SS Monocyte, Absolute 0.4 103/mcL Normal 0.2 - 1.0 10^3/mcL AO Workflow SS Monocytes/100 WBC (Bld) 7.9 % Normal 1.7 - 13.0 % AO Workflow SS Neutrophil, Absolute 3.3 103/mcL Normal 2.9 - 6 .2 10^3/mcL AO Workflow SS Neutrophils/100 WBC (Bld) 58.9 % Normal 37.0 - 80.0 % AO Workflow SS Platelet mean volume (Bld) [Entitic vol] 7.6 fL Normal 7.4 - 10.4 fL AO Workflow SS Platelets (Bld) [#/Vol] 202 103/mcL Normal 130 - 400 10^3/mcL AO Workflow SS Potassium [Moles/Vol] 3.9 mmol/L Normal 3.5 - 5.1 mmol/L AO ADM SS Protein [Mass/Vol] 6.8 G/dL Normal 6.4 - 8.2 G/dL AO ADM SS RBC (Bld) [#/Vol] 3.70 106/mcL Low 4.20 - 5.4 0 10^6/mcL AO Workflow SS Sodium [Moles/Vol] 143 mmol/L Normal 136 - 145 mmol/L AO ADM SS TSH Qn 0.78 m[IU]/L Normal 0.36 - 3.74 mcIU/mL AO ADM SS Urea nitrogen [Mass/Vol] 16 mg/dL Normal 7 - 18 mg/dL AO ADM SS Urea nitrogen/Creatinine [Mass ratio] 13 ratio Normal 7 - 27 ratio AO ADM SS Uric Acid Lvl 4.8 mg/dL Normal 2.6 - 6.2 mg/dL AO ADM SS WBC (Bld) [#/Vol] 5.6 103/mcL Normal 4.6 - 10.8 10^3/mcL AO Workflow SS LABORATORYOrdered By: Suyapa Gates on 09-18-2023 Cholesterol [Mass/Vol] 156 mg/dL Normal 0 - 200 mg/dL AO ADM SS Comment on above: Interpretive Data: C holesterol Reference Interval: Less than 200 Desirable 200-239 Borderline high risk 240 and above High risk Cholesterol in HDL [Mass/Vol] 45 mg/dL Normal 40 - 60 mg/dL AO ADM SS Cholesterol in LDL [Mass/Vol] 74 mg/dL Normal 0 - 130 mg/dL AO ADM SS Triglyceride [Mass/Vol] 184 mg/dL High 0 - 150 mg/dL AO ADM SS Comment on above: Interpretive Data: T riglyceride Reference Interval: Less than 150 Normal 150-199 Borderline high risk 200-499 High risk 500 or higher Very high risk LIPIDon 09-18-2023 Cholesterol [Mass/Vol] 156 mg/dL Normal 0-200 [facility] ([place]) Comment on above: Result Comment: Chol esterol Reference Interval: Less than 200 Desirable 200-239 Borderline high risk 240 and above High risk Performed By: #### G FR, A1C, CMP, LIPID, TSH #### [place] [address] [place], [place] [address] Cholesterol in HDL [Mass/Vol] 45 mg/dL Normal 40-60 [facility] ([place]) Comment on above: Performed By: #### G FR, A1C, CMP, LIPID, TSH #### [place] [address] [address] Cholesterol in LDL [Mass/Vol] 74 mg/dL Normal 0-130 [facility] ([place]) Comment on above: Performed By: #### G FR, A1C, CMP, LIPID, TSH #### [place] [id number] Triglyceride [Mass/Vol] 184 mg/dL High 0-150 [facility] ([place]) Comment on above: Result Comment: Trig lyceride Reference Interval: Less than 150 Normal 150-199 Borderline high risk 200-499 High risk 500 or higher Very high risk Performed By: #### G FR, A1C, CMP, LIPID, TSH #### [place] [address] [address] TSHon 09-18-2023 TSH Qn 0.78 m[IU]/L Normal 0.36-3.74 [facility] ([place]) Comment on above: Performed By: #### T SH, ANEU, CBC, ADIFF, A1C, GFR, CMP, URIC, FT4, LIPID #### [address] [address] URICon 09-18-2023 Uric Acid Lvl 4.8 mg/dL Normal 2.6-6.2 [facility] ([place]) Comment on above: Performed By: #### G FR, A1C, CMP, LIPID, TSH #### [address] [address] .GFRon 09-11-2023 GFR 57 ml/min/1.73sqm Normal [facility] ([place]) Comment on above: Result Comment: GFR Population mean for , Non- Americans Ages 20-29 = 116 mL/min/1.73 sq.m. Ages 30-39 = 107 mL/min/1.73 sq.m. Ages 40-49 = 99 mL/min/1.73 sq.m. Ages 50-59 = 93 mL/min/1.73 sq.m. Ages 60-69 = 85 mL/min/1.73 sq.m. Ages 70+ = 75 mL/min/1.73 sq.m. Chronic Kidney Disease: Less than 60 mL/min/1.73 square meters End Stage Renal Disease: Less than 15 mL/min/1.73 square meters Performed By: #### G FR, A1C, CMP, LIPID, TSH #### [address] [address] GFR Non- 47 ml/min/1.73sqm Normal [facility] ([place]) Comment on above: Result Comment: GFR Population mean for , Non- Americans Ages 20-29 = 116 mL/min/1.73 sq.m. Ages 30-39 = 107 mL/min/1.73 sq.m. Ages 40-49 = 99 mL/min/1.73 sq.m. Ages 50-59 = 93 mL/min/1.73 sq.m. Ages 60-69 = 85 mL/min/1.73 sq.m. Ages 70+ = 75 mL/min/1.73 sq.m. Chronic Kidney Disease: Less than 60 mL/min/1.73 square meters End Stage Renal Disease: Less than 15 mL/min/1.73 square meters Performed By: #### G FR, A1C, CMP, LIPID, TSH #### [address] [address] BMPon 09-11-2023 BUN/Creatinine Ratio 10 ratio Normal 7-27 [facility] ([place]) Comment on above: Performed By: #### G FR, A1C, CMP, LIPID, TSH #### [address] [address] Calcium [Mass/Vol] 9.2 mg/dL Normal 8.4-10.2 [facility] ([place]) Comment on above: Performed By: #### G FR, A1C, CMP, LIPID, TSH #### [address] [address] Chloride [Moles/Vol] 104 mmol/L Normal 98-107 [facility] ([place]) Comment on above: Performed By: #### G FR, A1C, CMP, LIPID, TSH #### [address] [address] CO2 [Moles/Vol] 29 mmol/L Normal 23-31 [facility] ([place]) Comment on above: Performed By: #### G FR, A1C, CMP, LIPID, TSH #### [address] [address] Creatinine [Mass/Vol] 1.12 mg/dL High 0.55-1.02 [facility] ([place]) Comment on above: Performed By: #### G FR, A1C, CMP, LIPID, TSH #### [address] [address] Electrolyte Balance 9.0 mEq/L Normal 4.0-15.0 [facility] ([place]) Comment on above: Performed By: #### G FR, A1C, CMP, LIPID, TSH #### [address] [address] Glucose [Mass/Vol] 160 mg/dL High 83-110 [facility] ([place] Comment on above: Performed By: #### G FR, A1C, CMP, LIPID, TSH #### [address] [address] Potassium [Moles/Vol] 4.0 mmol/L Normal 3.5-5.1 [facility] ([place]) Comment on above: Performed By: #### G FR, A1C, CMP, LIPID, TSH #### [address] [address] Sodium [Moles/Vol] 142 mmol/L Normal 136-145 [facility] ([place] Comment on above: Performed By: #### G FR, A1C, CMP, LIPID, TSH #### [address] [address] Urea nitrogen [Mass/Vol] 11 mg/dL Normal 7-18 [facility] ([place]) Comment on above: Performed By: #### G FR, A1C, CMP, LIPID, TSH #### [address] [address] .Auto Diffon 07-03-2023 Basophil, Absolute 0.0 10 3/mcL Normal 0.0-0.2 [facility] ([place]) Comment on above: Performed By: #### G FR, A1C, CMP, LIPID, TSH #### [address] [address] Basophils/100 WBC (Bld) 0.6 % Normal 0.0-2.5 [facility] ([place] Comment on above: Performed By: #### G FR, A1C, CMP, LIPID, TSH #### [address] [address] Eosinophil, Absolute 0.3 10 3/mcL Normal 0.0-0.4 Counts include 234 beds at the [facility] ([place]) Comment on above: Performed By: #### G FR, A1C, CMP, LIPID, TSH #### [address] [address] Eosinophils/100 WBC (Bld) 5.2 % Normal 0.0-7.0 [facility] ([place]) Comment on above: Performed By: #### G FR, A1C, CMP, LIPID, TSH #### [address] [address] Lymphocyte, Absolute 1.5 10 3/mcL Normal 0.8-3.9 Counts include 234 beds at the [facility] ([place] Comment on above: Performed By: #### G FR, A1C, CMP, LIPID, TSH #### [address] [address] Lymphocytes/100 WBC (Bld) 23.3 % Normal 10.0-50.0 [facility] ([place] Comment on above: Performed By: #### G FR, A1C, CMP, LIPID, TSH #### [address] [address] Monocyte, Absolute 0.7 10 3/mcL Normal 0.2-1.0 [facility] ([place]) Comment on above: Performed By: #### G FR, A1C, CMP, LIPID, TSH #### [address] [address] Monocytes/100 WBC (Bld) 11.3 % Normal 1.7-13.0 [facility] ([place] Comment on above: Performed By: #### G FR, A1C, CMP, LIPID, TSH #### [address] [address] Neutrophils/100 WBC (Bld) 59.6 % Normal 37.0-80.0 [facility] ([place] Comment on above: Performed By: #### G FR, A1C, CMP, LIPID, TSH #### [address] [address] .GFRon 07-03-2023 GFR Non- 37 ml/min/1.73sqm Normal [facility] ([place] Comment on above: Result Comment: GFR Population mean for , Non- Americans Ages 20-29 = 116 mL/min/1.73 sq.m. Ages 30-39 = 107 mL/min/1.73 sq.m. Ages 40-49 = 99 mL/min/1.73 sq.m. Ages 50-59 = 93 mL/min/1.73 sq.m. Ages 60-69 = 85 mL/min/1.73 sq.m. Ages 70+ = 75 mL/min/1.73 sq.m. Chronic Kidney Disease: Less than 60 mL/min/1.73 square meters End Stage Renal Disease: Less than 15 mL/min/1.73 square meters Performed By: #### G FR, A1C, CMP, LIPID, TSH #### [address] [address] GFR 45 ml/min/1.73sqm Normal [facility] ([place]) Comment on above: Result Comment: GFR Population mean for , Non- Americans Ages 20-29 = 116 mL/min/1.73 sq.m. Ages 30-39 = 107 mL/min/1.73 sq.m. Ages 40-49 = 99 mL/min/1.73 sq.m. Ages 50-59 = 93 mL/min/1.73 sq.m. Ages 60-69 = 85 mL/min/1.73 sq.m. Ages 70+ = 75 mL/min/1.73 sq.m. Chronic Kidney Disease: Less than 60 mL/min/1.73 square meters End Stage Renal Disease: Less than 15 mL/min/1.73 square meters Performed By: #### G FR, A1C, CMP, LIPID, TSH #### [place] [id number] .NEUABSon 07-03-2023 Neutrophil, Absolute 3.8 10 3/mcL Normal 2.9-6.2 Counts include 234 beds at the [facility] ([place] Comment on above: Performed By: #### G FR, A1C, CMP, LIPID, TSH #### [place] [address] A1Con 07-03-2023 HbA1c (Bld) [Mass fraction] 7.3 % High 4.3-6.4 [facility] ([place] Comment on above: Performed By: #### G FR, A1C, CMP, LIPID, TSH #### [place] [address] CBCon 07-03-2023 Erythrocyte distribution width (RBC) [Ratio] 15.3 % High 11.5-14.5 [facility] ([place] Comment on above: Performed By: #### G FR, A1C, CMP, LIPID, TSH #### [place] [address] Hematocrit (Bld) [Volume fraction] 33.4 % Low 37.0-47.0 [facility] ([place] Comment on above: Performed By: #### G FR, A1C, CMP, LIPID, TSH #### [place] [address] Hgb 11.0 G/dL Low 12.0-16.0 [facility] ([place] Comment on above: Performed By: #### G FR, A1C, CMP, LIPID, TSH #### [place] [address] MCH (RBC) [Entitic mass] 31.0 pg Normal 27.0-31.2 [facility] ([place] Comment on above: Performed By: #### G FR, A1C, CMP, LIPID, TSH #### [place] [address] MCHC 33.0 G/dL Normal 33.0-37.0 [facility] ([place] Comment on above: Performed By: #### G FR, A1C, CMP, LIPID, TSH #### [address] [address] MCV (RBC) [Entitic vol] 93.9 fL Normal 80.0-94.0 [facility] ([place] Comment on above: Performed By: #### G FR, A1C, CMP, LIPID, TSH #### [address] [address] Platelet 197 10 3/mcL Normal 130-400 [facility] ([place] Comment on above: Performed By: #### G FR, A1C, CMP, LIPID, TSH #### [place] [address] [address] Platelet mean volume (Bld) [Entitic vol] 7.5 fL Normal 7.4-10.4 [facility] ([place] Comment on above: Performed By: #### G FR, A1C, CMP, LIPID, TSH #### [address] [address] RBC 3.56 10 6/mcL Low 4.20-5.40 [facility] ([place] Comment on above: Performed By: #### G FR, A1C, CMP, LIPID, TSH #### [address] [address] WBC 6.4 10 3/mcL Normal 4.6-10.8 [facility] ([place] Comment on above: Performed By: #### G FR, A1C, CMP, LIPID, TSH #### [address] [address] CMPon 07-03-2023 Albumin Level 3.6 G/dL Normal 3.4-4.8 [facility] ([place] Comment on above: Performed By: #### G FR, A1C, CMP, LIPID, TSH #### [address] [address] Albumin/Globulin [Mass ratio] 1.2 {ratio} Normal 1.1-2.5 [facility] ([place] Comment on above: Performed By: #### G FR, A1C, CMP, LIPID, TSH #### [address] [address] ALP [Catalytic activity/Vol] 87 U/L Normal 40-135 [facility] ([place]) Comment on above: Performed By: #### G FR, A1C, CMP, LIPID, TSH #### [address] [address] ALT [Catalytic activity/Vol] 15 U/L Normal 14-59 [facility] ([place] Comment on above: Performed By: #### G FR, A1C, CMP, LIPID, TSH #### [address] [address] AST [Catalytic activity/Vol] 16 U/L Normal 10-40 [facility] ([place]) Comment on above: Performed By: #### G FR, A1C, CMP, LIPID, TSH #### [address] [address] Bili Total 0.6 mg/dL Normal 0.2-1.0 [facility] ([place]) Comment on above: Result Comment: Use of this assay is not recommended for patients undergoing treatment with eltrombopag due to the potential for falsely elevated results. Performed By: #### G FR, A1C, CMP, LIPID, TSH #### [address] [address] BUN/Creatinine Ratio 17 ratio Normal 7-27 [facility] ([place]) Comment on above: Performed By: #### G FR, A1C, CMP, LIPID, TSH #### [address] [address] Calcium [Mass/Vol] 8.8 mg/dL Normal 8.4-10.2 [facility] ([place]) Comment on above: Performed By: #### G FR, A1C, CMP, LIPID, TSH #### [address] [address] Chloride [Moles/Vol] 102 mmol/L Normal 98-107 [facility] ([place]) Comment on above: Performed By: #### G FR, A1C, CMP, LIPID, TSH #### [address] [address] CO2 [Moles/Vol] 28 mmol/L Normal 23-31 [facility] ([place] Comment on above: Performed By: #### G FR, A1C, CMP, LIPID, TSH #### [address] [address] Creatinine [Mass/Vol] 1.36 mg/dL High 0.55-1.02 [facility] ([place] Comment on above: Performed By: #### G FR, A1C, CMP, LIPID, TSH #### [address] [address] Electrolyte Balance 8.0 mEq/L Normal 4.0-15.0 [facility] ([place]) Comment on above: Performed By: #### G FR, A1C, CMP, LIPID, TSH #### [address] [address] Globulin 3.1 G/dL Normal [facility] ([place]) Comment on above: Performed By: #### G FR, A1C, CMP, LIPID, TSH #### [address] [address] Glucose [Mass/Vol] 187 mg/dL High 83-110 [facility] ([place] Comment on above: Performed By: #### G FR, A1C, CMP, LIPID, TSH #### [address] [address] Potassium [Moles/Vol] 4.3 mmol/L Normal 3.5-5.1 [facility] ([place] Comment on above: Performed By: #### G FR, A1C, CMP, LIPID, TSH #### [address] [address] Sodium [Moles/Vol] 138 mmol/L Normal 136-145 [facility] ([place] Comment on above: Performed By: #### G FR, A1C, CMP, LIPID, TSH #### [address] [address] Total Protein 6.7 G/dL Normal 6.4-8.2 [facility] ([place]) Comment on above: Performed By: #### G FR, A1C, CMP, LIPID, TSH #### [id number] [place], [place] [address] Urea nitrogen [Mass/Vol] 23 mg/dL High 7-18 [facility] ([place]) Comment on above: Performed By: #### G FR, A1C, CMP, LIPID, TSH #### [id number] [place], [place] [address] LABORATORYOrdered By: SYSTEM SYSTEM on 07-03-2023 Basophil, Absolute 0.0 103/mcL Invalid Interpretation Code 0.0 - 0.2 10^3/mcL AO Workflow SS Basophils/100 WBC (Bld) 0.6 % Invalid Interpretation Code 0.0 - 2.5 % AO Workflow SS Eosinophil, Absolute 0.3 103/mcL Invalid Interpretation Code 0.0 - 0.4 10^3/mcL AO Workflow SS Eosinophils/100 WBC (Bld) 5.2 % Invalid Interpretation Code 0.0 - 7.0 % AO Workflow SS Erythrocyte distribution width (RBC) [Ratio] 15.3 % Invalid Interpretation Code 11.5 - 14.5 % AO Workflow SS Hematocrit (Bld) [Volume fraction] 33.4 % Invalid Interpretation Code 37.0 - 47.0 % AO Workflow SS Hemoglobin (Bld) [Mass/Vol] 11.0 G/dL Invalid Interpretation Code 12.0 - 16.0 G/dL AO Workflow SS Lymphocyte, Absolute 1.5 103/mcL Invalid Interpretation Code 0.8 - 3.9 10^3/mcL AO Workflow SS Lymphocytes/100 WBC (Bld) 23.3 % Invalid Interpretation Code 10.0 - 50.0 % AO Workflow SS MCH (RBC) [Entitic mass] 31.0 pg Invalid Interpretation Code 27.0 - 31.2 pg AO Workflow SS MCHC 33.0 G/dL Invalid Interpretation Code 33.0 - 37.0 G/dL AO Workflow SS MCV (RBC) [Entitic vol] 93.9 fL Invalid Interpretation Code 80.0 - 94.0 fL AO Workflow SS Monocyte, Absolute 0.7 103/mcL Invalid Interpretation Code 0.2 - 1.0 10^3/mcL AO Workflow SS Monocytes/100 WBC (Bld) 11.3 % Invalid Interpretation Code 1.7 - 13.0 % AO Workflow SS Neutrophil, Absolute 3.8 103/mcL Invalid Interpretation Code 2.9 - 6.2 10^3/mcL AO Workflow SS Neutrophils/100 WBC (Bld) 59.6 % Invalid Interpretation Code 37.0 - 80.0 % AO Workflow SS Platelet mean volume (Bld) [Entitic vol] 7.5 fL Invalid Interpretation Code 7.4 - 10.4 fL AO Workflow SS Platelets (Bld) [#/Vol] 197 103/mcL Invalid Interpretation Code 130 - 400 10^3/mcL AO Workflow SS RBC (Bld) [#/Vol] 3.56 106/mcL Invalid Interpretation Code 4.20 - 5.40 10^6/mcL AO Workflow SS WBC (Bld) [#/Vol] 6.4 103/mcL Invalid Interpretation Code 4.6 - 10.8 10^3/mcL AO Workflow SS Albumin BCP dye [Mass/Vol] 3.6 G/dL Invalid Interpretation Code 3.4 - 4.8 G/dL AO ADM SS Albumin/Globulin [Mass ratio] 1.2 {ratio} Invalid Interpretation Code 1.1 - 2.5 ratio AO ADM SS ALP [Catalytic activity/Vol] 87 U/L Invalid Interpretation Code 40 - 135 U/L AO ADM SS ALT With P-5'-P [Catalytic activity/Vol] 15 U/L Invalid Interpretation Code 14 - 59 U/L AO ADM SS AST With P-5'-P [Catalytic activity/Vol] 16 U/L Invalid Interpretation Code 10 - 40 U/L AO ADM SS Bilirubin [Mass/Vol] 0.6 mg/dL Invalid Interpretation Code 0.2 - 1.0 mg/dL AO ADM SS Comment on above: Interpretive Data: U se of this assay is not recommended for patients undergoing treatment with eltrombopag due to the potential for falsely elevated results. Calcium [Mass/Vol] 8.8 mg/dL Invalid Interpretation Code 8.4 - 10.2 mg/dL AO ADM SS Chloride [Moles/Vol] 102 mmol/L Invalid Interpretation Code 98 - 107 mmol/L AO ADM SS CO2 [Moles/Vol] 28 mmol/L Invalid Interpretation Code 23 - 31 mmol/L AO ADM SS Creatinine [Mass/Vol] 1.36 mg/dL Invalid Interpretation Code 0.55 - 1.02 mg/dL AO ADM SS Electrolyte Balance 8.0 mEq/L Invalid Interpretation Code 4.0 - 15.0 mEq/L AO ADM SS GFR/1.73 sq M.predicted among blacks MDRD (S/P/Bld) [Vol rate/Area] 45 ml/min/1.73sqm Invalid Interpretation Code AO Chemistry S Comment on above: Interpretive Data: GFR Population mean for , Non- Americans Ages 20-29 = 116 mL/min/1.73 sq.m. Ages 30-39 = 107 mL/min/1.73 sq.m. Ages 40-49 = 99 mL/min/1.73 sq.m. Ages 50-59 = 93 mL/min/1.73 sq.m. Ages 60-69 = 85 mL/min/1.73 sq.m. Ages 70+ = 75 mL/min/1.73 sq.m. Chronic Kidney Disease: Less than 60 mL/min/1.73 square meters End Stage Renal Disease: Less than 15 mL/min/1.73 square meters GFR/1.73 sq M.predicted among non-blacks MDRD (S/P/Bld) [Vol rate/Area] 37 ml/min/1.73sqm Invalid Interpretation Code AO Chemistry S Comment on above: Interpretive Data: GFR Population mean for , Non- Americans Ages 20-29 = 116 mL/min/1.73 sq.m. Ages 30-39 = 107 mL/min/1.73 sq.m. Ages 40-49 = 99 mL/min/1.73 sq.m. Ages 50-59 = 93 mL/min/1.73 sq.m. Ages 60-69 = 85 mL/min/1.73 sq.m. Ages 70+ = 75 mL/min/1.73 sq.m. Chronic Kidney Disease: Less than 60 mL/min/1.73 square meters End Stage Renal Disease: Less than 15 mL/min/1.73 square meters Globulin 3.1 G/dL Invalid Interpretation Code AO ADM SS Glucose [Mass/Vol] 187 mg/dL Invalid Interpretation Code 83 - 110 mg/dL AO ADM SS HbA1c (Bld) [Mass fraction] 7.3 % Invalid Interpretation Code 4.3 - 6.4 % AO ADM SS Potassium [Moles/Vol] 4.3 mmol/L Invalid Interpretation Code 3.5 - 5.1 mmol/L AO ADM SS Protein [Mass/Vol] 6.7 G/dL Invalid Interpretation Code 6.4 - 8.2 G/dL AO ADM SS Sodium [Moles/Vol] 138 mmol/L Invalid Interpretation Code 136 - 145 mmol/L AO ADM SS TSH Qn 2.24 m[IU]/L Invalid Interpretation Code 0.36 - 3.74 mcIU/mL AO ADM SS Urea nitrogen [Mass/Vol] 23 mg/dL Invalid Interpretation Code 7 - 18 mg/dL AO ADM SS Urea nitrogen/Creatinine [Mass ratio] 17 ratio Invalid Interpretation Code 7 - 27 ratio AO ADM SS LABORATORYOrdered By: Suyapa Gates on 07-03-2023 Cholesterol [Mass/Vol] 153 mg/dL Invalid Interpretation Code 0 - 200 mg/dL AO ADM SS Comment on above: Interpretive Data: C holesterol Reference Interval: Less than 200 Desirable 200-239 Borderline high risk 240 and above High risk Cholesterol in HDL [Mass/Vol] 34 mg/dL Invalid Interpretation Code 40 - 60 mg/dL AO ADM SS Cholesterol in LDL [Mass/Vol] 50 mg/dL Invalid Interpretation Code 0 - 130 mg/dL AO ADM SS Triglyceride [Mass/Vol] 347 mg/dL Invalid Interpretation Code 0 - 150 mg/dL AO ADM SS Comment on above: Interpretive Data: T riglyceride Reference Interval: Less than 150 Normal 150-199 Borderline high risk 200-499 High risk 500 or higher Very high risk LIPIDon 07-03-2023 Cholesterol [Mass/Vol] 153 mg/dL Normal 0-200 [facility] ([place]) Comment on above: Result Comment: Chol esterol Reference Interval: Less than 200 Desirable 200-239 Borderline high risk 240 and above High risk Performed By: #### G FR, A1C, CMP, LIPID, TSH #### [id number] [place], [place] [address] Cholesterol in HDL [Mass/Vol] 34 mg/dL Low 40-60 [facility] ([place]) Comment on above: Performed By: #### G FR, A1C, CMP, LIPID, TSH #### [id number] [place], [place] [address] Cholesterol in LDL [Mass/Vol] 50 mg/dL Normal 0-130 [facility] ([place]) Comment on above: Performed By: #### G FR, A1C, CMP, LIPID, TSH #### [id number] [place], [place] [address] Triglyceride [Mass/Vol] 347 mg/dL High 0-150 [facility] ([place]) Comment on above: Result Comment: Trig lyceride Reference Interval: Less than 150 Normal 150-199 Borderline high risk 200-499 High risk 500 or higher Very high risk Performed By: #### G FR, A1C, CMP, LIPID, TSH #### [id number] [place], [place] [address] TSHon 07-03-2023 TSH Qn 2.24 m[IU]/L Normal 0.36-3.74 [facility] ([place]) Comment on above: Performed By: #### G FR, A1C, CMP, LIPID, TSH #### [id number] [place], [place] [address] LABORATORYOrdered By: SYSTEM SYSTEM on 03-29-2023 Albumin BCP dye [Mass/Vol] 3.4 G/dL Invalid Interpretation Code 3.4 - 4.8 G/dL AO ADM SS Albumin/Globulin [Mass ratio] 1.3 {ratio} Invalid Interpretation Code 1.1 - 2.5 ratio AO ADM SS ALP [Catalytic activity/Vol] 79 U/L Invalid Interpretation Code 40 - 135 U/L AO ADM SS ALT With P-5'-P [Catalytic activity/Vol] 15 U/L Invalid Interpretation Code 14 - 59 U/L AO ADM SS AST With P-5'-P [Catalytic activity/Vol] 15 U/L Invalid Interpretation Code 10 - 40 U/L AO ADM SS Bilirubin [Mass/Vol] 0.5 mg/dL Invalid Interpretation Code 0.2 - 1.0 mg/dL AO ADM SS Calcium [Mass/Vol] 9.0 mg/dL Invalid Interpretation Code 8.4 - 10.2 mg/dL AO ADM SS Chloride [Moles/Vol] 103 mmol/L Invalid Interpretation Code 98 - 107 mmol/L AO ADM SS CO2 [Moles/Vol] 28 mmol/L Invalid Interpretation Code 23 - 31 mmol/L AO ADM SS Creatinine [Mass/Vol] 1.17 mg/dL Invalid Interpretation Code 0.55 - 1.02 mg/dL AO ADM SS Electrolyte Balance 10.0 mEq/L Invalid Interpretation Code 4.0 - 15.0 mEq/L AO ADM SS GFR/1.73 sq M.predicted among blacks MDRD (S/P/Bld) [Vol rate/Area] 54 ml/min/1.73sqm Invalid Interpretation Code AO Chemistry S GFR/1.73 sq M.predicted among non-blacks MDRD (S/P/Bld) [Vol rate/Area] 44 ml/min/1.73sqm Invalid Interpretation Code AO Chemistry S Globulin 2.7 G/dL Invalid Interpretation Code AO ADM SS Glucose [Mass/Vol] 210 mg/dL Invalid Interpretation Code 83 - 110 mg/dL AO ADM SS HbA1c (Bld) [Mass fraction] 6.7 % Invalid Interpretation Code 4.3 - 6.4 % AO ADM SS Potassium [Moles/Vol] 4.2 mmol/L Invalid Interpretation Code 3.5 - 5.1 mmol/L AO ADM SS Protein [Mass/Vol] 6.1 G/dL Invalid Interpretation Code 6.4 - 8.2 G/dL AO ADM SS Sodium [Moles/Vol] 141 mmol/L Invalid Interpretation Code 136 - 145 mmol/L AO ADM SS TSH Qn 1.37 m[IU]/L Invalid Interpretation Code 0.36 - 3.74 mcIU/mL AO ADM SS Urea nitrogen [Mass/Vol] 18 mg/dL Invalid Interpretation Code 7 - 18 mg/dL AO ADM SS Urea nitrogen/Creatinine [Mass ratio] 15 ratio Invalid Interpretation Code 7 - 27 ratio AO ADM SS LABORATORYOrdered By: Gianni Ann on 03-29-2023 Cholesterol [Mass/Vol] 135 mg/dL Invalid Interpretation Code 0 - 200 mg/dL AO ADM SS Cholesterol in HDL [Mass/Vol] 35 mg/dL Invalid Interpretation Code 40 - 60 mg/dL AO ADM SS Cholesterol in LDL [Mass/Vol] 57 mg/dL Invalid Interpretation Code 0 - 130 mg/dL AO ADM SS Triglyceride [Mass/Vol] 214 mg/dL Invalid Interpretation Code 0 - 150 mg/dL AO ADM SS LABORATORYOrdered By: Medefy SYSTEM on 01-05-2023 Albumin BCP dye [Mass/Vol] 3.5 G/dL Invalid Interpretation Code 3.4 - 4.8 G/dL AO ADM SS Albumin/Globulin [Mass ratio] 1.2 {ratio} Invalid Interpretation Code 1.1 - 2.5 ratio AO ADM SS ALP [Catalytic activity/Vol] 86 U/L Invalid Interpretation Code 40 - 135 U/L AO ADM SS ALT With P-5'-P [Catalytic activity/Vol] 21 U/L Invalid Interpretation Code 14 - 59 U/L AO ADM SS AST With P-5'-P [Catalytic activity/Vol] 21 U/L Invalid Interpretation Code 10 - 40 U/L AO ADM SS Bilirubin [Mass/Vol] 0.5 mg/dL Invalid Interpretation Code 0.2 - 1.0 mg/dL AO ADM SS Calcium [Mass/Vol] 9.0 mg/dL Invalid Interpretation Code 8.4 - 10.2 mg/dL AO ADM SS Chloride [Moles/Vol] 104 mmol/L Invalid Interpretation Code 98 - 107 mmol/L AO ADM SS CO2 [Moles/Vol] 30 mmol/L Invalid Interpretation Code 23 - 31 mmol/L AO ADM SS Creatinine [Mass/Vol] 1.09 mg/dL Invalid Interpretation Code 0.55 - 1.02 mg/dL AO ADM SS Electrolyte Balance 8.0 mEq/L Invalid Interpretation Code 4.0 - 15.0 mEq/L AO ADM SS GFR 59 ml/min/1.73sqm Invalid Interpretation Code AO Chemistry S GFR Non- 48 ml/min/1.73sqm Invalid Interpretation Code AO Chemistry S Globulin 3.0 G/dL Invalid Interpretation Code AO ADM SS Glucose [Mass/Vol] 139 mg/dL Invalid Interpretation Code 83 - 110 mg/dL AO ADM SS HbA1c (Bld) [Mass fraction] 6.9 % Invalid Interpretation Code 4.3 - 6.4 % AO ADM SS Potassium [Moles/Vol] 4.2 mmol/L Invalid Interpretation Code 3.5 - 5.1 mmol/L AO ADM SS Protein [Mass/Vol] 6.5 G/dL Invalid Interpretation Code 6.4 - 8.2 G/dL AO ADM SS Sodium [Moles/Vol] 142 mmol/L Invalid Interpretation Code 136 - 145 mmol/L AO ADM SS TSH Qn 1.93 m[IU]/L Invalid Interpretation Code 0.36 - 3.74 mcIU/mL AO ADM SS Urea nitrogen [Mass/Vol] 19 mg/dL Invalid Interpretation Code 7 - 18 mg/dL AO ADM SS Urea nitrogen/Creatinine [Mass ratio] 17 ratio Invalid Interpretation Code 7 - 27 ratio AO ADM SS LABORATORYOrdered By: Leah Zambrano on 01-05-2023 Basophil, Absolute 0.0 103/mcL Invalid Interpretation Code 0.0 - 0.2 10^3/mcL AO Workflow SS Basophils/100 WBC (Bld) 0.7 % Invalid Interpretation Code 0.0 - 2.5 % AO Workflow SS Eosinophil, Absolute 0.3 103/mcL Invalid Interpretation Code 0.0 - 0.4 10^3/mcL AO Workflow SS Eosinophils/100 WBC (Bld) 4.3 % Invalid Interpretation Code 0.0 - 7.0 % AO Workflow SS Erythrocyte distribution width (RBC) [Ratio] 15.6 % Invalid Interpretation Code 11.5 - 14.5 % AO Workflow SS Hematocrit (Bld) [Volume fraction] 34.2 % Invalid Interpretation Code 37.0 - 47.0 % AO Workflow SS Hemoglobin (Bld) [Mass/Vol] 11.2 G/dL Invalid Interpretation Code 12.0 - 16.0 G/dL AO Workflow SS Lymphocyte, Absolute 1.2 103/mcL Invalid Interpretation Code 0.8 - 3.9 10^3/mcL AO Workflow SS Lymphocytes/100 WBC (Bld) 20.9 % Invalid Interpretation Code 10.0 - 50.0 % AO Workflow SS MCH (RBC) [Entitic mass] 30.3 pg Invalid Interpretation Code 27.0 - 31.2 pg AO Workflow SS MCHC 32.7 G/dL Invalid Interpretation Code 33.0 - 37.0 G/dL AO Workflow SS MCV (RBC) [Entitic vol] 92.8 fL Invalid Interpretation Code 80.0 - 94.0 fL AO Workflow SS Monocyte, Absolute 0.5 103/mcL Invalid Interpretation Code 0.2 - 1.0 10^3/mcL AO Workflow SS Monocytes/100 WBC (Bld) 8.0 % Invalid Interpretation Code 1.7 - 13.0 % AO Workflow SS Neutrophil, Absolute 3.8 103/mcL Invalid Interpretation Code 2.9 - 6.2 10^3/mcL AO Workflow SS Neutrophils/100 WBC (Bld) 66.1 % Invalid Interpretation Code 37.0 - 80.0 % AO Workflow SS Platelet mean volume (Bld) [Entitic vol] 7.7 fL Invalid Interpretation Code 7.4 - 10.4 fL AO Workflow SS Platelets (Bld) [#/Vol] 174 103/mcL Invalid Interpretation Code 130 - 400 10^3/mcL AO Workflow SS RBC (Bld) [#/Vol] 3.68 106/mcL Invalid Interpretation Code 4.20 - 5.40 10^6/mcL AO Workflow SS WBC (Bld) [#/Vol] 5.8 103/mcL Invalid Interpretation Code 4.6 - 10.8 10^3/mcL AO Workflow SS LABORATORYOrdered By: Olayinka Paniagua on 01-05-2023 Cholesterol [Mass/Vol] 167 mg/dL Invalid Interpretation Code 0 - 200 mg/dL AO ADM SS Cholesterol in HDL [Mass/Vol] 41 mg/dL Invalid Interpretation Code 40 - 60 mg/dL AO ADM SS Cholesterol in LDL [Mass/Vol] 79 mg/dL Invalid Interpretation Code 0 - 130 mg/dL AO ADM SS Triglyceride [Mass/Vol] 237 mg/dL Invalid Interpretation Code 0 - 150 mg/dL AO ADM SS LABORATORYOrdered By: SYSTEM SYSTEM on 11-24-2022 Calcium [Mass/Vol] 8.7 mg/dL Invalid Interpretation Code 8.4 - 10.2 mg/dL AO ADM SS Chloride [Moles/Vol] 103 mmol/L Invalid Interpretation Code 98 - 107 mmol/L AO ADM SS CO2 [Moles/Vol] 30 mmol/L Invalid Interpretation Code 23 - 31 mmol/L AO ADM SS Creatinine [Mass/Vol] 1.08 mg/dL Invalid Interpretation Code 0.55 - 1.02 mg/dL AO ADM SS Electrolyte Balance 9.0 mEq/L Invalid Interpretation Code 4.0 - 15.0 mEq/L AO ADM SS GFR 59 ml/min/1.73sqm Invalid Interpretation Code AO Chemistry S GFR Non- 49 ml/min/1.73sqm Invalid Interpretation Code AO Chemistry S Glucose [Mass/Vol] 108 mg/dL Invalid Interpretation Code 83 - 110 mg/dL AO ADM SS Potassium [Moles/Vol] 4.1 mmol/L Invalid Interpretation Code 3.5 - 5.1 mmol/L AO ADM SS Sodium [Moles/Vol] 142 mmol/L Invalid Interpretation Code 136 - 145 mmol/L AO ADM SS Urea nitrogen [Mass/Vol] 19 mg/dL Invalid Interpretation Code 7 - 18 mg/dL AO ADM SS Urea nitrogen/Creatinine [Mass ratio] 18 ratio Invalid Interpretation Code 7 - 27 ratio AO ADM SS LABORATORYOrdered By: Medefy SYSTEM on 09-21-2022 Albumin BCP dye [Mass/Vol] 3.6 G/dL Invalid Interpretation Code 3.4 - 4.8 G/dL AO ADM SS Albumin/Globulin [Mass ratio] 1.2 {ratio} Invalid Interpretation Code 1.1 - 2.5 ratio AO ADM SS ALP [Catalytic activity/Vol] 79 U/L Invalid Interpretation Code 40 - 135 U/L AO ADM SS ALT With P-5'-P [Catalytic activity/Vol] 14 U/L Invalid Interpretation Code 14 - 59 U/L AO ADM SS AST With P-5'-P [Catalytic activity/Vol] 19 U/L Invalid Interpretation Code 10 - 40 U/L AO ADM SS Bilirubin [Mass/Vol] 0.5 mg/dL Invalid Interpretation Code 0.2 - 1.0 mg/dL AO ADM SS Calcium [Mass/Vol] 9.2 mg/dL Invalid Interpretation Code 8.4 - 10.2 mg/dL AO ADM SS Chloride [Moles/Vol] 104 mmol/L Invalid Interpretation Code 98 - 107 mmol/L AO ADM SS CO2 [Moles/Vol] 31 mmol/L Invalid Interpretation Code 23 - 31 mmol/L AO ADM SS Creatinine [Mass/Vol] 1.03 mg/dL Invalid Interpretation Code 0.55 - 1.02 mg/dL AO ADM SS Electrolyte Balance 8.0 mEq/L Invalid Interpretation Code 4.0 - 15.0 mEq/L AO ADM SS GFR 62 ml/min/1.73sqm Invalid Interpretation Code AO Chemistry S GFR Non- 52 ml/min/1.73sqm Invalid Interpretation Code AO Chemistry S Globulin 3.1 G/dL Invalid Interpretation Code AO ADM SS Glucose [Mass/Vol] 132 mg/dL Invalid Interpretation Code 83 - 110 mg/dL AO ADM SS HbA1c (Bld) [Mass fraction] 6.0 % Invalid Interpretation Code 4.3 - 6.4 % AO ADM SS Potassium [Moles/Vol] 4.5 mmol/L Invalid Interpretation Code 3.5 - 5.1 mmol/L AO ADM SS Protein [Mass/Vol] 6.7 G/dL Invalid Interpretation Code 6.4 - 8.2 G/dL AO ADM SS Sodium [Moles/Vol] 143 mmol/L Invalid Interpretation Code 136 - 145 mmol/L AO ADM SS TSH Qn 1.82 m[IU]/L Invalid Interpretation Code 0.36 - 3.74 mcIU/mL AO ADM SS Urea nitrogen [Mass/Vol] 16 mg/dL Invalid Interpretation Code 7 - 18 mg/dL AO ADM SS Urea nitrogen/Creatinine [Mass ratio] 16 ratio Invalid Interpretation Code 7 - 27 ratio AO ADM SS LABORATORYOrdered By: Stanley Bueno on 09-21-2022 Basophil, Absolute 0.0 103/mcL Invalid Interpretation Code 0.0 - 0.2 10^3/mcL AO Workflow SS Basophils/100 WBC (Bld) 0.7 % Invalid Interpretation Code 0.0 - 2.5 % AO Workflow SS Eosinophil, Absolute 0.3 103/mcL Invalid Interpretation Code 0.0 - 0.4 10^3/mcL AO Workflow SS Eosinophils/100 WBC (Bld) 5.1 % Invalid Interpretation Code 0.0 - 7.0 % AO Workflow SS Erythrocyte distribution width (RBC) [Ratio] 15.9 % Invalid Interpretation Code 11.5 - 14.5 % AO Workflow SS Hematocrit (Bld) [Volume fraction] 34.1 % Invalid Interpretation Code 37.0 - 47.0 % AO Workflow SS Hemoglobin (Bld) [Mass/Vol] 11.1 G/dL Invalid Interpretation Code 12.0 - 16.0 G/dL AO Workflow SS Lymphocyte, Absolute 1.2 103/mcL Invalid Interpretation Code 0.8 - 3.9 10^3/mcL AO Workflow SS Lymphocytes/100 WBC (Bld) 20.0 % Invalid Interpretation Code 10.0 - 50.0 % AO Workflow SS MCH (RBC) [Entitic mass] 29.4 pg Invalid Interpretation Code 27.0 - 31.2 pg AO Workflow SS MCHC 32.4 G/dL Invalid Interpretation Code 33.0 - 37.0 G/dL AO Workflow SS MCV (RBC) [Entitic vol] 90.7 fL Invalid Interpretation Code 80.0 - 94.0 fL AO Workflow SS Monocyte, Absolute 0.5 103/mcL Invalid Interpretation Code 0.2 - 1.0 10^3/mcL AO Workflow SS Monocytes/100 WBC (Bld) 8.5 % Invalid Interpretation Code 1.7 - 13.0 % AO Workflow SS Neutrophil, Absolute 3.8 103/mcL Invalid Interpretation Code 2.9 - 6.2 10^3/mcL AO Workflow SS Neutrophils/100 WBC (Bld) 65.7 % Invalid Interpretation Code 37.0 - 80.0 % AO Workflow SS Platelet mean volume (Bld) [Entitic vol] 7.5 fL Invalid Interpretation Code 7.4 - 10.4 fL AO Workflow SS Platelets (Bld) [#/Vol] 182 103/mcL Invalid Interpretation Code 130 - 400 10^3/mcL AO Workflow SS RBC (Bld) [#/Vol] 3.76 106/mcL Invalid Interpretation Code 4.20 - 5.40 10^6/mcL AO Workflow SS WBC (Bld) [#/Vol] 5.8 103/mcL Invalid Interpretation Code 4.6 - 10.8 10^3/mcL AO Workflow SS LABORATORYOrdered By: Suyapa Gates on 09-21-2022 Cholesterol [Mass/Vol] 173 mg/dL Invalid Interpretation Code 0 - 200 mg/dL AO ADM SS Cholesterol in HDL [Mass/Vol] 41 mg/dL Invalid Interpretation Code 40 - 60 mg/dL AO ADM SS Cholesterol in LDL [Mass/Vol] 86 mg/dL Invalid Interpretation Code 0 - 130 mg/dL AO ADM SS Triglyceride [Mass/Vol] 231 mg/dL Invalid Interpretation Code 0 - 150 mg/dL AO ADM SS LABORATORYOrdered By: Suyapa Gates on 06-22-2022 Albumin BCP dye [Mass/Vol] 3.2 G/dL Invalid Interpretation Code 3.4 - 4.8 G/dL AO ADM SS Albumin/Globulin [Mass ratio] 1.0 {ratio} Invalid Interpretation Code 1.1 - 2.5 ratio AO ADM SS ALP [Catalytic activity/Vol] 92 U/L Invalid Interpretation Code 40 - 135 U/L AO ADM SS ALT With P-5'-P [Catalytic activity/Vol] 17 U/L Invalid Interpretation Code 14 - 59 U/L AO ADM SS AST With P-5'-P [Catalytic activity/Vol] 22 U/L Invalid Interpretation Code 10 - 40 U/L AO ADM SS Bilirubin [Mass/Vol] 0.7 mg/dL Invalid Interpretation Code 0.2 - 1.0 mg/dL AO ADM SS Calcium [Mass/Vol] 8.7 mg/dL Invalid Interpretation Code 8.4 - 10.2 mg/dL AO ADM SS Chloride [Moles/Vol] 104 mmol/L Invalid Interpretation Code 98 - 107 mmol/L AO ADM SS Cholesterol [Mass/Vol] 124 mg/dL Invalid Interpretation Code 0 - 200 mg/dL AO ADM SS Cholesterol in HDL [Mass/Vol] 40 mg/dL Invalid Interpretation Code 40 - 60 mg/dL AO ADM SS Cholesterol in LDL [Mass/Vol] 67 mg/dL Invalid Interpretation Code 0 - 130 mg/dL AO ADM SS CO2 [Moles/Vol] 27 mmol/L Invalid Interpretation Code 23 - 31 mmol/L AO ADM SS Creatinine [Mass/Vol] 1.09 mg/dL Invalid Interpretation Code 0.55 - 1.02 mg/dL AO ADM SS Electrolyte Balance 10.0 mEq/L Invalid Interpretation Code 4.0 - 15.0 mEq/L AO ADM SS Globulin 3.2 G/dL Invalid Interpretation Code AO ADM SS Glucose [Mass/Vol] 152 mg/dL Invalid Interpretation Code 83 - 110 mg/dL AO ADM SS Potassium [Moles/Vol] 4.8 mmol/L Invalid Interpretation Code 3.5 - 5.1 mmol/L AO ADM SS Protein [Mass/Vol] 6.4 G/dL Invalid Interpretation Code 6.4 - 8.2 G/dL AO ADM SS Sodium [Moles/Vol] 141 mmol/L Invalid Interpretation Code 136 - 145 mmol/L AO ADM SS Triglyceride [Mass/Vol] 83 mg/dL Invalid Interpretation Code 0 - 150 mg/dL AO ADM SS TSH Qn 1.62 m[IU]/L Invalid Interpretation Code 0.36 - 3.74 mcIU/mL AO ADM SS Urea nitrogen [Mass/Vol] 17 mg/dL Invalid Interpretation Code 7 - 18 mg/dL AO ADM SS Urea nitrogen/Creatinine [Mass ratio] 16 ratio Invalid Interpretation Code 7 - 27 ratio AO ADM SS LABORATORYOrdered By: SYSTEM SYSTEM on 06-22-2022 GFR 59 ml/min/1.73sqm Invalid Interpretation Code AO Chemistry S GFR Non- 48 ml/min/1.73sqm Invalid Interpretation Code AO Chemistry S LABORATORYOrdered By: Elaina Chiell on 06-22-2022 HbA1c (Bld) [Mass fraction] 6.1 % Invalid Interpretation Code 4.3 - 6.4 % AO ADM SS LABORATORYOrdered By: Val Bertrand on 04-21-2022 C-Reactive Protein mg/dL Invalid Interpretation Code 0.0 - 0.9 mg/dL AO Chemistry S LABORATORYOrdered By: Suyapa Gates on 03-23-2022 Albumin BCP dye [Mass/Vol] 3.8 G/dL Invalid Interpretation Code 3.4 - 4.8 G/dL AO ADM SS Albumin/Globulin [Mass ratio] 1.3 {ratio} Invalid Interpretation Code 1.1 - 2.5 ratio AO ADM SS ALP [Catalytic activity/Vol] 83 U/L Invalid Interpretation Code 40 - 135 U/L AO ADM SS ALT With P-5'-P [Catalytic activity/Vol] 17 U/L Invalid Interpretation Code 14 - 59 U/L AO ADM SS AST With P-5'-P [Catalytic activity/Vol] 20 U/L Invalid Interpretation Code 10 - 40 U/L AO ADM SS Bilirubin [Mass/Vol] 0.5 mg/dL Invalid Interpretation Code 0.2 - 1.0 mg/dL AO ADM SS Calcium [Mass/Vol] 9.7 mg/dL Invalid Interpretation Code 8.4 - 10.2 mg/dL AO ADM SS Chloride [Moles/Vol] 106 mmol/L Invalid Interpretation Code 98 - 107 mmol/L AO ADM SS Cholesterol [Mass/Vol] 154 mg/dL Invalid Interpretation Code 0 - 200 mg/dL AO ADM SS Cholesterol in HDL [Mass/Vol] 40 mg/dL Invalid Interpretation Code 40 - 60 mg/dL AO ADM SS Cholesterol in LDL [Mass/Vol] 81 mg/dL Invalid Interpretation Code 0 - 130 mg/dL AO ADM SS CO2 [Moles/Vol] 31 mmol/L Invalid Interpretation Code 23 - 31 mmol/L AO ADM SS Creatinine [Mass/Vol] 1.25 mg/dL Invalid Interpretation Code 0.55 - 1.02 mg/dL AO ADM SS Electrolyte Balance 6.0 mEq/L Invalid Interpretation Code 4.0 - 15.0 mEq/L AO ADM SS Globulin 2.9 G/dL Invalid Interpretation Code AO ADM SS Glucose [Mass/Vol] 112 mg/dL Invalid Interpretation Code 83 - 110 mg/dL AO ADM SS HbA1c (Bld) [Mass fraction] 6.2 % Invalid Interpretation Code 4.3 - 6.4 % AO ADM SS Potassium [Moles/Vol] 4.8 mmol/L Invalid Interpretation Code 3.5 - 5.1 mmol/L AO ADM SS Protein [Mass/Vol] 6.7 G/dL Invalid Interpretation Code 6.4 - 8.2 G/dL AO ADM SS Sodium [Moles/Vol] 143 mmol/L Invalid Interpretation Code 136 - 145 mmol/L AO ADM SS Triglyceride [Mass/Vol] 164 mg/dL Invalid Interpretation Code 0 - 150 mg/dL AO ADM SS TSH Qn 1.58 m[IU]/L Invalid Interpretation Code 0.36 - 3.74 mcIU/mL AO ADM SS Urea nitrogen [Mass/Vol] 17 mg/dL Invalid Interpretation Code 7 - 18 mg/dL AO ADM SS Urea nitrogen/Creatinine [Mass ratio] 14 ratio Invalid Interpretation Code 7 - 27 ratio AO ADM SS LABORATORYOrdered By: Stanley Bueno on 03-23-2022 Basophil, Absolute 0.0 103/mcL Invalid Interpretation Code 0.0 - 0.2 10^3/mcL AO Workflow SS Basophils/100 WBC (Bld) 0.8 % Invalid Interpretation Code 0.0 - 2.5 % AO Workflow SS Eosinophil, Absolute 0.3 103/mcL Invalid Interpretation Code 0.0 - 0.4 10^3/mcL AO Workflow SS Eosinophils/100 WBC (Bld) 5.3 % Invalid Interpretation Code 0.0 - 7.0 % AO Workflow SS Erythrocyte distribution width (RBC) [Ratio] 14.3 % Invalid Interpretation Code 11.5 - 14.5 % AO Workflow SS Hematocrit (Bld) [Volume fraction] 35.1 % Invalid Interpretation Code 37.0 - 47.0 % AO Workflow SS Hgb 11.5 G/dL Invalid Interpretation Code 12.0 - 16.0 G/dL AO Workflow SS Lymphocyte, Absolute 1.4 103/mcL Invalid Interpretation Code 0.8 - 3.9 10^3/mcL AO Workflow SS Lymphocytes/100 WBC (Bld) 26.6 % Invalid Interpretation Code 10.0 - 50.0 % AO Workflow SS MCH (RBC) [Entitic mass] 30.3 pg Invalid Interpretation Code 27.0 - 31.2 pg AO Workflow SS MCHC 32.7 G/dL Invalid Interpretation Code 33.0 - 37.0 G/dL AO Workflow SS MCV (RBC) [Entitic vol] 92.6 fL Invalid Interpretation Code 80.0 - 94.0 fL AO Workflow SS Monocyte, Absolute 0.6 103/mcL Invalid Interpretation Code 0.2 - 1.0 10^3/mcL AO Workflow SS Monocytes/100 WBC (Bld) 10.7 % Invalid Interpretation Code 1.7 - 13.0 % AO Workflow SS Neutrophil, Absolute 3.1 103/mcL Invalid Interpretation Code 2.9 - 6.2 10^3/mcL AO Workflow SS Neutrophils/100 WBC (Bld) 56.6 % Invalid Interpretation Code 37.0 - 80.0 % AO Workflow SS Platelet 214 103/mcL Invalid Interpretation Code 130 - 400 10^3/mcL AO Workflow SS Platelet mean volume (Bld) [Entitic vol] 7.3 fL Invalid Interpretation Code 7.4 - 10.4 fL AO Workflow SS RBC 3.79 106/mcL Invalid Interpretation Code 4.20 - 5.40 10^6/mcL AO Workflow SS WBC 5.4 103/mcL Invalid Interpretation Code 4.6 - 10.8 10^3/mcL AO Workflow SS LABORATORYOrdered By: SYSTEM SYSTEM on 03-23-2022 GFR 50 ml/min/1.73sqm Invalid Interpretation Code AO Chemistry S GFR Non- 41 ml/min/1.73sqm Invalid Interpretation Code AO Chemistry S Monocyte distribution width Auto (Bld) [Entitic vol] Not Performed 1 *NA* (03/23/22 11:12 AM) Invalid Interpretation Code 0.00 - 20.00 AO Hematology S Comment on above: Result Comment: MDW testing performed only on adult ER patients between the ages of 18-89 years. LABORATORYOrdered By: Olayinka Paniagua on 12-21-2021 Albumin BCP dye [Mass/Vol] 3.6 G/dL Invalid Interpretation Code 3.4 - 4.8 G/dL AO ADM SS Albumin/Globulin [Mass ratio] 1.2 {ratio} Invalid Interpretation Code 1.1 - 2.5 ratio AO ADM SS ALP [Catalytic activity/Vol] 104 U/L Invalid Interpretation Code 40 - 135 U/L AO ADM SS ALT With P-5'-P [Catalytic activity/Vol] 62 U/L Invalid Interpretation Code 14 - 59 U/L AO ADM SS AST With P-5'-P [Catalytic activity/Vol] 27 U/L Invalid Interpretation Code 10 - 40 U/L AO ADM SS Bilirubin [Mass/Vol] 0.5 mg/dL Invalid Interpretation Code 0.2 - 1.0 mg/dL AO ADM SS Calcium [Mass/Vol] 9.5 mg/dL Invalid Interpretation Code 8.4 - 10.2 mg/dL AO ADM SS Chloride [Moles/Vol] 104 mmol/L Invalid Interpretation Code 98 - 107 mmol/L AO ADM SS Cholesterol [Mass/Vol] 126 mg/dL Invalid Interpretation Code 0 - 200 mg/dL AO ADM SS Cholesterol in HDL [Mass/Vol] 35 mg/dL Invalid Interpretation Code 40 - 60 mg/dL AO ADM SS Cholesterol in LDL [Mass/Vol] 53 mg/dL Invalid Interpretation Code 0 - 130 mg/dL AO ADM SS CO2 [Moles/Vol] 28 mmol/L Invalid Interpretation Code 23 - 31 mmol/L AO ADM SS Creatinine [Mass/Vol] 1.13 mg/dL Invalid Interpretation Code 0.55 - 1.02 mg/dL AO ADM SS Electrolyte Balance 11.0 mEq/L Invalid Interpretation Code 4.0 - 15.0 mEq/L AO ADM SS Globulin 3.0 G/dL Invalid Interpretation Code AO ADM SS Glucose [Mass/Vol] 113 mg/dL Invalid Interpretation Code 83 - 110 mg/dL AO ADM SS HbA1c (Bld) [Mass fraction] 6.3 % Invalid Interpretation Code 4.3 - 6.4 % AO ADM SS Potassium [Moles/Vol] 4.5 mmol/L Invalid Interpretation Code 3.5 - 5.1 mmol/L AO ADM SS Protein [Mass/Vol] 6.6 G/dL Invalid Interpretation Code 6.4 - 8.2 G/dL AO ADM SS Sodium [Moles/Vol] 143 mmol/L Invalid Interpretation Code 136 - 145 mmol/L AO ADM SS Triglyceride [Mass/Vol] 189 mg/dL Invalid Interpretation Code 0 - 150 mg/dL AO ADM SS TSH Qn 1.10 m[IU]/L Invalid Interpretation Code 0.36 - 3.74 mcIU/mL AO ADM SS Urea nitrogen [Mass/Vol] 19 mg/dL Invalid Interpretation Code 7 - 18 mg/dL AO ADM SS Urea nitrogen/Creatinine [Mass ratio] 17 ratio Invalid Interpretation Code 7 - 27 ratio AO ADM SS LABORATORYOrdered By: SYSTEM SYSTEM on 12-21-2021 GFR 56 ml/min/1.73sqm Invalid Interpretation Code AO Chemistry S GFR Non- 46 ml/min/1.73sqm Invalid Interpretation Code AO Chemistry S LABORATORYOrdered By: Stanley Bueno on 09-16-2021 Albumin BCP dye [Mass/Vol] 3.5 G/dL Invalid Interpretation Code 3.4 - 4.8 G/dL AO ADM SS Albumin/Globulin [Mass ratio] 1.1 {ratio} Invalid Interpretation Code 1.1 - 2.5 ratio AO ADM SS ALP [Catalytic activity/Vol] 86 U/L Invalid Interpretation Code 40 - 135 U/L AO ADM SS ALT With P-5'-P [Catalytic activity/Vol] 49 U/L Invalid Interpretation Code 14 - 59 U/L AO ADM SS AST With P-5'-P [Catalytic activity/Vol] 46 U/L Invalid Interpretation Code 10 - 40 U/L AO ADM SS Bilirubin [Mass/Vol] 0.8 mg/dL Invalid Interpretation Code 0.2 - 1.0 mg/dL AO ADM SS Calcium [Mass/Vol] 9.2 mg/dL Invalid Interpretation Code 8.4 - 10.2 mg/dL AO ADM SS Chloride [Moles/Vol] 102 mmol/L Invalid Interpretation Code 98 - 107 mmol/L AO ADM SS Cholesterol [Mass/Vol] 158 mg/dL Invalid Interpretation Code 0 - 200 mg/dL AO ADM SS Cholesterol in HDL [Mass/Vol] 35 mg/dL Invalid Interpretation Code 40 - 60 mg/dL AO ADM SS Cholesterol in LDL [Mass/Vol] 49 mg/dL Invalid Interpretation Code 0 - 130 mg/dL AO ADM SS CO2 [Moles/Vol] 30 mmol/L Invalid Interpretation Code 23 - 31 mmol/L AO ADM SS Creatinine [Mass/Vol] 1.16 mg/dL Invalid Interpretation Code 0.55 - 1.02 mg/dL AO ADM SS Electrolyte Balance 11.0 mEq/L Invalid Interpretation Code AO ADM SS Free T4 [Mass/Vol] 0.85 ng/dL Invalid Interpretation Code 0.76 - 1.46 ng/dL AO ADM SS Globulin 3.1 G/dL Invalid Interpretation Code AO ADM SS Glucose [Mass/Vol] 168 mg/dL Invalid Interpretation Code 83 - 110 mg/dL AO ADM SS Potassium [Moles/Vol] 4.3 mmol/L Invalid Interpretation Code 3.5 - 5.1 mmol/L AO ADM SS Protein [Mass/Vol] 6.6 G/dL Invalid Interpretation Code 6.4 - 8.2 G/dL AO ADM SS Sodium [Moles/Vol] 143 mmol/L Invalid Interpretation Code 136 - 145 mmol/L AO ADM SS Triglyceride [Mass/Vol] 371 mg/dL Invalid Interpretation Code 0 - 150 mg/dL AO ADM SS TSH Qn 2.04 m[IU]/L Invalid Interpretation Code 0.36 - 3.74 mcIU/mL AO ADM SS Urea nitrogen [Mass/Vol] 19 mg/dL Invalid Interpretation Code 7 - 18 mg/dL AO ADM SS Urea nitrogen/Creatinine [Mass ratio] 16 ratio Invalid Interpretation Code 7 - 27 ratio AO ADM SS LABORATORYOrdered By: SYSTEM SYSTEM on 09-16-2021 GFR 55 ml/min/1.73sqm Invalid Interpretation Code AO Chemistry S GFR Non- 45 ml/min/1.73sqm Invalid Interpretation Code AO Chemistry S LABORATORYOrdered By: Val Bertrand on 09-16-2021 HbA1c (Bld) [Mass fraction] 6.9 % Invalid Interpretation Code 4.3 - 6.4 % AO ADM SS CMPon 12-24-2020 Albumin [Mass/Vol] 3.5 g/dL Normal 3.2-5.0 [facility] Comment on above: Performed By: #### L 500.29627, L500.06050 #### [facility] [place] [address] Albumin/Globulin [Mass ratio] 1.2 {ratio} Normal 0.8-2.0 [facility] Comment on above: Performed By: #### L 500.24572, L500.50118 #### [facility] [address] [place] [address] ALK PHOS 77 U/L Normal 45-117 [facility] Comment on above: Performed By: #### L 500.06721, L500.18700 #### [facility] [address] [place] [address] ALT [Catalytic activity/Vol] 16 U/L Normal 13-61 [facility] Comment on above: Result Comment: RESU LTS MAY BE FALSELY DEPRESSED AFTER THE ADMINISTRATION OF SULFASALAZINE AND/OR SULFAPYRIDINE. Performed By: #### L 500.70925, L500.56741 #### [facility] [address] [place] [address] Anion gap [Moles/Vol] 3 mmol/L Low 5-16 [facility] Comment on above: Performed By: #### L 500.92430, L500.36982 #### [facility] [address] [place] [address] AST [Catalytic activity/Vol] 28 U/L Normal 8-34 [facility] Comment on above: Result Comment: RESU LTS MAY BE FALSELY DEPRESSED AFTER THE ADMINISTRATION OF SULFASALAZINE AND/OR SULFAPYRIDINE. Performed By: #### L 500.24965, L500.87899 #### [facility] [address] [place] [address] BILI TOTAL 0.50 MG/DL Normal 0.2-1.0 [facility] Comment on above: Performed By: #### L 500.28649, L500.17418 #### [facility] [address] [place] [address] Calcium [Mass/Vol] 9.8 mg/dL Normal 8.5-10.5 [facility] Comment on above: Result Comment: NOTE NEW NORMAL RANGE DUE TO REAGENT CHANGE Performed By: #### L 500.36029, L500.66842 #### [facility] [place] [id number] Chloride [Moles/Vol] 104 mmol/L Normal 98-107 [facility] Comment on above: Performed By: #### L 500.53435, L500.93795 #### [facility] [address] [place], [place] [address] CO2 [Moles/Vol] 31.0 mmol/L Normal 21-32 [facility] Comment on above: Performed By: #### L 500.68479, L500.71719 #### [facility] [address] [place], [place] [address] Creatinine [Mass/Vol] 1.00 mg/dL High 0.510-0.950 [facility] Comment on above: Result Comment: Mireya ents receiving either N-Acetylcysteine (NAC) or Metamizole prior to venipuncture, may have falsely depressed results. Performed By: #### L 500.99360, L500.77603 #### [facility] [place] [address] Globulin (S) [Mass/Vol] 2.8 g/dL Normal 2.2-4.2 [facility] Comment on above: Performed By: #### L 500.48789, L500.83725 #### [facility] [address] [place], [place] [address] Glucose [Mass/Vol] 132 mg/dL High 70-100 [facility] Comment on above: Result Comment: 70-1 00- Normal Fasting; 100-125 Impaired Fasting; greater than 126 on more than one result- Diabetes. ADA guidelines. Results may be falsely elevated after the administration of Sulfapyridine. Results may be falsely depressed after the administration of Sulfasalazine. Performed By: #### L 500.67606, L500.61803 #### [facility] [address] [place] [address] Potassium [Moles/Vol] 3.9 mmol/L Normal 3.5-5.1 [facility] Comment on above: Result Comment: Slig ht Hemolysis, Result may be affected. Performed By: #### L 500.54707, L500.64746 #### [facility] [address] [place] [address] Protein [Mass/Vol] 6.3 g/dL Normal 6.0-8.5 [facility] Comment on above: Performed By: #### L 500.99672, L500.00322 #### [facility] [address] [place] [address] Sodium [Moles/Vol] 138 mmol/L Normal 136-145 [facility] Comment on above: Performed By: #### L 500.19643, L500.18230 #### [facility] [address] [place] [address] Urea nitrogen [Mass/Vol] 20 mg/dL Normal 7-26 [facility] Comment on above: Performed By: #### L 500.30217, L500.24981 #### [facility] [place] [address] Urea nitrogen/Creatinine [Mass ratio] 20 mg/mg Normal 15-24 [facility] Comment on above: Performed By: #### L 500.00658, L500.05478 #### [facility] [address] [place], [place] [address] GFR ESTon 12-24-2020 IF AMER Greater than [address] [facility] Comment on above: Performed By: #### L 500.51992, L500.75795 #### [facility] [address] [place] [address] IF non-AFR AMER 54 Normal [facility] Comment on above: Performed By: #### L 500.95985, L500.86582 #### [facility] [address] [place] [address] CBCon 12-22-2020 Erythrocyte distribution width (RBC) [Ratio] 17.6 % High 11-14.5 [facility] Comment on above: Performed By: #### L 500.35858, L500.14785 #### [facility] [address] [place], [place] [id number] Hematocrit (Bld) [Volume fraction] 31.3 % Low 35.0-47.0 [facility] Comment on above: Performed By: #### L 500.87177, L500.26816 #### [facility] [address] [place] [address] Hemoglobin (Bld) [Mass/Vol] 9.5 g/dL Low 11.5-15.5 [facility] Comment on above: Performed By: #### L 500.08484, L500.64701 #### [facility] [address] [place] [address] MCHC (RBC) [Mass/Vol] 30.4 g/dL Low 32.0-36.0 [facility] Comment on above: Performed By: #### L 500.17940, L500.70537 #### [facility] [address] [place] [address] MCV (RBC) [Entitic vol] 95.7 fL Normal 80.0-99.0 [facility] Comment on above: Performed By: #### L 500.88684, L500.75982 #### [facility] [address] [place] [address] Nucleated RBC/100 WBC (Bld) [Ratio] 0.0 % Normal Less than 1 [facility] Comment on above: Performed By: #### L 500.25505, L500.00008 #### [facility] [address] [place] [address] Platelet mean volume (Bld) [Entitic vol] 10.3 fL Normal 9.4-12.4 [facility] Comment on above: Performed By: #### L 500.93084, L500.12380 #### [facility] [address] [place] [address] PLT 148 K/CU MM Low 150-450 [facility] Comment on above: Performed By: #### L 500.12558, L500.42297 #### [facility] [address] [place], [place] [address] RBC 3.27 M/CU MM Low 3.90-5.30 [facility] Comment on above: Performed By: #### L 500.66914, L500.32998 #### [facility] [address] [place] [address] WBC 5.5 K/CUMM Normal 4.5-11.0 [facility] Comment on above: Performed By: #### L 500.80165, L500.30473 #### [facility] [address] [place] [address] PBNP TESTon 12-22-2020 Natriuretic peptide B (Bld) [Mass/Vol] 696 pg/mL High 0-450 [facility] Comment on above: Result Comment: NT-p roBNP results of less than 300 pg/ml likely rules out acute congestive heart failure with 99% predictive value. NOTE: These cuttoff points are suggested for ACUTE CHF DIAGNOSIS only Less than 50 years Greater than 450 pg/ml 50-75 years Greater than 900 pg/ml Greater than 75 years Greater than 1800 pg/ml NOTE NEW NORMAL RANGE Performed By: #### L 500.42330 #### [facility] [address] [place] [address] CBCon 12-18-2020 Erythrocyte distribution width (RBC) [Ratio] 18.0 % High 11-14.5 [facility] Comment on above: Performed By: #### L 200.54467 #### [facility] [address] [place] [address] Hematocrit (Bld) [Volume fraction] 31.7 % Low 35.0-47.0 [facility] Comment on above: Performed By: #### L 200.26186 #### [facility] [address] [place] [address] Hemoglobin (Bld) [Mass/Vol] 9.5 g/dL Low 11.5-15.5 [facility] Comment on above: Performed By: #### L 200.14025 #### [facility] [address] [place] [address] MCHC (RBC) [Mass/Vol] 30.0 g/dL Low 32.0-36.0 [facility] Comment on above: Performed By: #### L 200.40189 #### [facility] [address] [place] [address] MCV (RBC) [Entitic vol] 98.1 fL Normal 80.0-99.0 [facility] Comment on above: Performed By: #### L 200.85650 #### [facility] [address] [place], [place] [address] Nucleated RBC/100 WBC (Bld) [Ratio] 0.0 % Normal Less than 1 [facility] Comment on above: Performed By: #### L 200.59558 #### [facility] [address] [place] [address] Platelet mean volume (Bld) [Entitic vol] 10.4 fL Normal 9.4-12.4 [facility] Comment on above: Performed By: #### L 200.59748 #### [facility] [address] [place] [address] PLT 211 K/CU MM Normal 150-450 [facility] Comment on above: Performed By: #### L 200.30306 #### [facility] [address] [place], [place] [address] RBC 3.23 M/CU MM Low 3.90-5.30 [facility] Comment on above: Performed By: #### L 200.10907 #### [facility] [address] [place], [place] [address] WBC 6.5 K/CUMM Normal 4.5-11.0 [facility] Comment on above: Performed By: #### L 200.23558 #### [facility] [address] [place], [place] [address] PBNP TESTon 12-18-2020 Natriuretic peptide B (Bld) [Mass/Vol] 1278 pg/mL High 0-450 [facility] Comment on above: Result Comment: NT-p roBNP results of less than 300 pg/ml likely rules out acute congestive heart failure with 99% predictive value. NOTE: These cuttoff points are suggested for ACUTE CHF DIAGNOSIS only Less than 50 years Greater than 450 pg/ml 50-75 years Greater than 900 pg/ml Greater than 75 years Greater than 1800 pg/ml NOTE NEW NORMAL RANGE Performed By: #### L 500.36066, L500.93565 #### [facility] [address] [place] [address] [facility] Anion gap [Moles/Vol] 7 mmol/L Normal 5-16 [facility] Comment on above: Performed By: #### L 500.12284, L500.54416 #### [facility] [address] [place] [address] Calcium [Mass/Vol] 9.5 mg/dL Normal 8.5-10.5 [facility] Comment on above: Result Comment: NOTE NEW NORMAL RANGE DUE TO REAGENT CHANGE Performed By: #### L 500.71482, L500.27007 #### [facility] [address] [place] [address] Chloride [Moles/Vol] 106 mmol/L Normal 98-107 [facility] Comment on above: Performed By: #### L 500.95468, L500.23791 #### [facility] [address] [place] [address] CO2 [Moles/Vol] 28.0 mmol/L Normal 21-32 [facility] Comment on above: Performed By: #### L 500.11933, L500.88928 #### [facility] [address] [place] [address] Creatinine [Mass/Vol] 1.01 mg/dL High 0.510-0.950 [facility] Comment on above: Result Comment: Mireya ents receiving either N-Acetylcysteine (NAC) or Metamizole prior to venipuncture, may have falsely depressed results. Performed By: #### L 500.41985, L500.77181 #### [facility] [address] [place], [place] [address] Glucose [Mass/Vol] 128 mg/dL High 70-100 [facility] Comment on above: Result Comment: 70-1 00- Normal Fasting; 100-125 Impaired Fasting; greater than 126 on more than one result- Diabetes. ADA guidelines. Results may be falsely elevated after the administration of Sulfapyridine. Results may be falsely depressed after the administration of Sulfasalazine. Performed By: #### L 500.95576, L500.43753 #### [facility] [address] [place] [address] Potassium [Moles/Vol] 4.0 mmol/L Normal 3.5-5.1 [facility] Comment on above: Performed By: #### L 500.55840, L500.55297 #### [facility] [address] [place] [address] Sodium [Moles/Vol] 141 mmol/L Normal 136-145 [facility] Comment on above: Performed By: #### L 500.61888, L500.81670 #### [facility] [address] [place] [address] Urea nitrogen [Mass/Vol] 21 mg/dL Normal 7-26 [facility] Comment on above: Performed By: #### L 500.97344, L500.43546 #### [facility] [address] [place] [address] Urea nitrogen/Creatinine [Mass ratio] 21 mg/mg Normal 15-24 [facility] Comment on above: Performed By: #### L 500.58705, L500.52408 #### [facility] [address] [place], [place] [address] GFR ESTon 12-17-2020 IF AMER Greater than [address] [facility] Comment on above: Performed By: #### L 500.95846, L500.01652 #### [facility] [place] [address] IF non-AFR AMER 53 Normal [facility] Comment on above: Performed By: #### L 500.46798, L500.16259 #### [facility] [place] [address] BMPon 12-14-2020 Anion gap [Moles/Vol] 3 mmol/L Low 5-16 [facility] Comment on above: Performed By: #### L 500.18490, L500.77335 #### [facility] [address] [place] [address] Calcium [Mass/Vol] 9.7 mg/dL Normal 8.5-10.5 [facility] Comment on above: Result Comment: NOTE NEW NORMAL RANGE DUE TO REAGENT CHANGE Performed By: #### L 500.74204, L500.44374 #### [facility] [place] [address] Chloride [Moles/Vol] 109 mmol/L High 98-107 [facility] Comment on above: Performed By: #### L 500.58044, L500.89977 #### [facility] [address] [place] [address] CO2 [Moles/Vol] 30.0 mmol/L Normal 21-32 [facility] Comment on above: Performed By: #### L 500.11779, L500.08602 #### [facility] [place] [address] Creatinine [Mass/Vol] 1.14 mg/dL High 0.510-0.950 [facility] Comment on above: Result Comment: Mireya ents receiving either N-Acetylcysteine (NAC) or Metamizole prior to venipuncture, may have falsely depressed results. Performed By: #### L 500.56661, L500.34386 #### [facility] [address] [place] [address] Glucose [Mass/Vol] 110 mg/dL High 70-100 [facility] Comment on above: Result Comment: 70-1 00- Normal Fasting; 100-125 Impaired Fasting; greater than 126 on more than one result- Diabetes. ADA guidelines. Results may be falsely elevated after the administration of Sulfapyridine. Results may be falsely depressed after the administration of Sulfasalazine. Performed By: #### L 500.33389, L500.71733 #### [facility] [address] [place] [address] Potassium [Moles/Vol] 4.9 mmol/L Normal 3.5-5.1 [facility] Comment on above: Performed By: #### L 500.29787, L500.33599 #### [facility] [address] [place] [address] Sodium [Moles/Vol] 142 mmol/L Normal 136-145 [facility] Comment on above: Performed By: #### L 500.32650, L500.65627 #### [facility] [address] [place] [address] Urea nitrogen [Mass/Vol] 32 mg/dL High 7-26 [facility] Comment on above: Performed By: #### L 500.91940, L500.58468 #### [facility] [address] [place], [place] [address] Urea nitrogen/Creatinine [Mass ratio] 28 mg/mg High 15-24 [facility] Comment on above: Performed By: #### L 500.62638, L500.49991 #### [facility] [address] [place], [place] [address] CBCon 12-14-2020 Erythrocyte distribution width (RBC) [Ratio] 17.7 % High 11-14.5 [facility] Comment on above: Performed By: #### L 200.48401 #### [facility] [address] [place] [address] Hematocrit (Bld) [Volume fraction] 31.8 % Low 35.0-47.0 [facility] Comment on above: Performed By: #### L 200.57136 #### [facility] [address] [place] [address] Hemoglobin (Bld) [Mass/Vol] 9.6 g/dL Low 11.5-15.5 [facility] Comment on above: Performed By: #### L 200.07748 #### [facility] [address] [place] [address] MCHC (RBC) [Mass/Vol] 30.2 g/dL Low 32.0-36.0 [facility] Comment on above: Performed By: #### L 200.02930 #### [facility] [address] [place] [address] MCV (RBC) [Entitic vol] 97.8 fL Normal 80.0-99.0 [facility] Comment on above: Performed By: #### L 200.01173 #### [facility] [address] [place] [address] Nucleated RBC/100 WBC (Bld) [Ratio] 0.0 % Normal Less than 1 [facility] Comment on above: Performed By: #### L 200.79472 #### [facility] [address] [place], [place] [address] Platelet mean volume (Bld) [Entitic vol] 10.1 fL Normal 9.4-12.4 [facility] Comment on above: Performed By: #### L 200.85870 #### [facility] [address] [place], [place] [address] PLT 248 K/CU MM Normal 150-450 [facility] Comment on above: Performed By: #### L 200.01044 #### [facility] [place] [id number] RBC 3.25 M/CU MM Low 3.90-5.30 [facility] Comment on above: Performed By: #### L 200.93190 #### [facility] [address] [place] [address] WBC 5.9 K/CUMM Normal 4.5-11.0 [facility] Comment on above: Performed By: #### L 200.09560 #### [facility] [address] [place] [address] GFR ESTon 12-14-2020 IF AMER 56 Normal [facility] Comment on above: Performed By: #### L 500.74628, L500.59803 #### [facility] [address] [place] [address] IF non-AFR AMER 46 Normal [facility] Comment on above: Performed By: #### L 500.49092, L500.61792 #### [facility] [address] [place], [place] [id number] IRON PANELon 12-14-2020 Iron [Mass/Vol] 51 ug/dL Normal 50-170 [facility] Comment on above: Result Comment: Mireya ents treated with metal-binding drugs (e.g.deferoxamine) may have depressed iron values, as chelated iron may not properly react in the Siemens iron assay. Performed By: #### L 500.57196, L500.34728 #### [facility] [address] [place], [place] [id number] IRON SAT 20 % Low 22-44 [facility] Comment on above: Performed By: #### L 500.70762, L500.43594 #### [facility] [address] [place] [address] TIBC 260 UG/DL Normal 221-481 [facility] Comment on above: Performed By: #### L 500.42970, L500.72811 #### [facility] [place] [address] [facility] Anion gap [Moles/Vol] 9 mmol/L Normal 5-16 [facility] Comment on above: Performed By: #### L 500.63875, L500.39950 #### [facility] [address] [place] [address] Performed By: #### L 500.97757, L500.55351 #### [facility] [address] [place] [address] Calcium [Mass/Vol] 9.3 mg/dL Normal 8.5-10.5 [facility] Comment on above: Result Comment: NOTE NEW NORMAL RANGE DUE TO REAGENT CHANGE Performed By: #### L 500.44849, L500.92693 #### [facility] [address] [place] [address] Performed By: #### L 500.82507, L500.87942 #### [facility] [address] [place] [address] Chloride [Moles/Vol] 104 mmol/L Normal 98-107 [facility] Comment on above: Performed By: #### L 500.74079, L500.69443 #### [facility] [address] [place] [address] Performed By: #### L 500.78356, L500.29190 #### [facility] [address] [place] [address] 23596 CO2 [Moles/Vol] 27.0 mmol/L Normal 21-32 [facility] Comment on above: Performed By: #### L 500.41868, L500.10855 #### [facility] [address] [place] [address] Performed By: #### L 500.15352, L500.90612 #### [facility] [address] [place] [address] Creatinine [Mass/Vol] 1.13 mg/dL High 0.510-0.950 [facility] Comment on above: Result Comment: Mireya ents receiving either N-Acetylcysteine (NAC) or Metamizole prior to venipuncture, may have falsely depressed results. Performed By: #### L 500.40547, L500.10081 #### [facility] [address] [place] [address] Performed By: #### L 500.24256, L500.09379 #### [facility] [address] [place] [address] Glucose [Mass/Vol] 155 mg/dL High 70-100 [facility] Comment on above: Result Comment: 70-1 00- Normal Fasting; 100-125 Impaired Fasting; greater than 126 on more than one result- Diabetes. ADA guidelines. Results may be falsely elevated after the administration of Sulfapyridine. Results may be falsely depressed after the administration of Sulfasalazine. Performed By: #### L 500.36928, L500.81693 #### [facility] [address] [place] [address] Performed By: #### L 500.96441, L500.35632 #### [facility] [address] [place] [address] Potassium [Moles/Vol] 3.9 mmol/L Normal 3.5-5.1 [facility] Comment on above: Performed By: #### L 500.74483, L500.79926 #### [facility] [address] [place] [address] Performed By: #### L 500.44548, L500.25459 #### [facility] [address] [place] [address] Sodium [Moles/Vol] 140 mmol/L Normal 136-145 [facility] Comment on above: Performed By: #### L 500.42204, L500.41560 #### [facility] [address] [place] [address] Performed By: #### L 500.86973, L500.40760 #### [facility] [address] [place] [address] Urea nitrogen [Mass/Vol] 15 mg/dL Normal 7-26 [facility] Comment on above: Performed By: #### L 500.17536, L500.87237 #### [facility] [address] [place] [address] Performed By: #### L 500.37742, L500.60668 #### [facility] [address] [place] [address] Urea nitrogen/Creatinine [Mass ratio] 13 mg/mg Low 15-24 [facility] Comment on above: Performed By: #### L 500.32766, L500.54444 #### [facility] [address] [place] [address] Performed By: #### L 500.33173, L500.73666 #### [facility] [address] [place] [address] CBCon 12-03-2020 Erythrocyte distribution width (RBC) [Ratio] 18.1 % High 11-14.5 [facility] Comment on above: Performed By: #### L 200.86571 #### [facility] [address] [place] [address] Performed By: #### L 500.64285, L500.53461 #### [facility] [address] [place], [place] [id number] Hematocrit (Bld) [Volume fraction] 33.7 % Low 35.0-47.0 [facility] Comment on above: Performed By: #### L 200.91535 #### [facility] [address] [place] [address] Performed By: #### L 500.80836, L500.54915 #### [facility] [address] [place] [address] Hemoglobin (Bld) [Mass/Vol] 10.1 g/dL Low 11.5-15.5 [facility] Comment on above: Performed By: #### L 200.07463 #### [facility] [address] [place] [address] Performed By: #### L 500.52665, L500.74599 #### [facility] [address] [place] [address] MCHC (RBC) [Mass/Vol] 30.0 g/dL Low 32.0-36.0 [facility] Comment on above: Performed By: #### L 200.22745 #### [facility] [address] [place] [address] Performed By: #### L 500.24070, L500.48238 #### [facility] [address] [place] [address] MCV (RBC) [Entitic vol] 97.4 fL Normal 80.0-99.0 [facility] Comment on above: Performed By: #### L 200.24052 #### [facility] [address] [place], [place] [id number] Performed By: #### L 500.98550, L500.73492 #### [facility] [address] [place] [address] Nucleated RBC/100 WBC (Bld) [Ratio] 0.0 % Normal Less than 1 [facility] Comment on above: Performed By: #### L 200.50255 #### [facility] [address] [place] [address] Performed By: #### L 500.87290, L500.39122 #### [facility] [address] [place] [address]2905 Platelet mean volume (Bld) [Entitic vol] 9.9 fL Normal 9.4-12.4 [facility] Comment on above: Performed By: #### L 200.86053 #### [facility] [address] [place] [address] Performed By: #### L 500.49793, L500.23799 #### [facility] [address] [place] [address] PLT 201 K/CU MM Normal 150-450 [facility] Comment on above: Performed By: #### L 200.09132 #### [facility] [address] [place] [address] Performed By: #### L 500.10249, L500.86760 #### [facility] [address] [place] [address] 87224 RBC 3.46 M/CU MM Low 3.90-5.30 [facility] Comment on above: Performed By: #### L 200.19946 #### [facility] [address] [place] [address] Performed By: #### L 500.34321, L500.54771 #### [facility] [address] [place] [address] WBC 6.1 K/CUMM Normal 4.5-11.0 [facility] Comment on above: Performed By: #### L 200.86317 #### [facility] [address] [place] [address] Performed By: #### L 500.36865, L500.23686 #### [facility] [address] [place] [address] 10334 GFR ESTon 12-03-2020 IF AMER 56 Normal [facility] Comment on above: Performed By: #### L 500.53064, L500.55528 #### [facility] [address] [place] [address] Performed By: #### L 500.95801, L500.06490 #### [facility] [address] [place] [address] 23095 IF non-AFR AMER 47 Normal [facility] Comment on above: Performed By: #### L 500.36088, L500.70882 #### [facility] [address] [place] [address] Performed By: #### L 500.32475, L500.76903 #### [facility] [address] [place] [address] 43800 PBNP TESTon 12-03-2020 Natriuretic peptide B (Bld) [Mass/Vol] 1783 pg/mL High 0-450 [facility] Comment on above: Result Comment: NT-p roBNP results of less than 300 pg/ml likely rules out acute congestive heart failure with 99% predictive value. NOTE: These cuttoff points are suggested for ACUTE CHF DIAGNOSIS only Less than 50 years Greater than 450 pg/ml 50-75 years Greater than 900 pg/ml Greater than 75 years Greater than 1800 pg/ml NOTE NEW NORMAL RANGE Performed By: #### L 500.92231 #### [facility] [address] [place] [address]8743 Vital Signs Date Time Vital Sign Value Performing Clinician Facility 05-01-2025 11:30-0400 Body weight 67.8 kg FITZ GA MD [facility] 01-30-2025 11:30-0400 Body weight 68 kg FITZ GA MD [facility] 01-02-2025 11:55-0400 Body weight 69 kg FITZ GA MD [facility] 06-06-2022 11:20-0400 Body temperature 98.42 [degF] DR HARSHAD TEIXEIRA MD [facility] 06-06-2022 11:20-0400 Diastolic blood pressure 60 mm[Hg] DR HARSHAD TEIXEIRA MD [facility] 06-06-2022 11:20-0400 Heart rate 82 /min DR HARSHAD TEIXEIAR MD [facility] 06-06-2022 11:20-0400 Respiratory rate 14 /min DR HARSHAD TEIXEIRA MD [facility] 06-06-2022 11:20-0400 Systolic blood pressure 123 mm[Hg] DR HARSHAD TEIXEIRA MD [facility] 06-05-2022 06:54-0400 Diastolic blood pressure 61 mm[Hg] RODRI REICHFIELD DO [facility] 06-05-2022 06:54-0400 Heart rate 63 /min RODRI REICHFIELD DO [facility] 06-05-2022 06:54-0400 Respiratory rate 18 /min RODRI REICHFIELD DO [facility] 06-05-2022 06:54-0400 Systolic blood pressure 133 mm[Hg] RODRI REICHFIELD DO [facility] 06-05-2022 04:20-0400 Body temperature 97.7 [degF] RODRI REICHFIELD DO [facility] 06-05-2022 04:20-0400 Diastolic blood pressure 89 mm[Hg] RODRI REICHFIELD DO [facility] 06-05-2022 04:20-0400 Heart rate 65 /min RODRI REICHFIELD DO [facility] 06-05-2022 04:20-0400 Respiratory rate 18 /min RODRI REICHFIELD DO [facility] 06-05-2022 04:20-0400 Systolic blood pressure 178 mm[Hg] RODRI REICHFIELD DO [facility] 12-08-2021 12:03-0500 Diastolic blood pressure 69 mm[Hg] DR OC COULTER MD [facility] 12-08-2021 12:03-0500 Heart rate 60 /min DR OC COULTER MD [facility] 12-08-2021 12:03-0500 Respiratory rate 16 /min DR OC COULTER MD [facility] 12-08-2021 12:03-0500 Systolic blood pressure 180 mm[Hg] DR OC COULTER MD [facility] 12-08-2021 10:47-0500 Body height 162.[address] OC COULTER MD [facility] 12-08-2021 10:47-0500 Body temperature 98.42 [degF] DR OC COULTER MD [facility] 12-08-2021 10:47-0500 Body weight 69.[address] OC COULTER MD [facility] 12-08-2021 10:47-0500 Diastolic blood pressure 83 mm[Hg] DR OC COULTER MD [facility] 12-08-2021 10:47-0500 Heart rate 76 /min DR OC COULTER MD [facility] 12-08-2021 10:47-0500 Respiratory rate 24 /min DR OC COULTER MD [facility] 12-08-2021 10:47-0500 Systolic blood pressure 177 mm[Hg] DR OC COULTER MD [facility] 08-27-2021 09:49-0500 Diastolic blood pressure 66 mm[Hg] DR DAQUAN MERCADO MD [facility] 08-27-2021 09:49-0500 Heart rate 66 /min DR DAQUAN MERCADO MD [facility] 08-27-2021 09:49-0500 Respiratory rate 20 /min DR DAQUAN MERCADO MD [facility] 08-27-2021 09:49-0500 Systolic blood pressure 172 mm[Hg] DR DAQUAN MERCADO MD [facility] 08-27-2021 09:34-0500 Diastolic Blood Pressure NBP [address] DAQUAN MERCADO MD [facility] 08-27-2021 09:34-0500 Heart rate 66 /min DR DAQUAN MERCADO MD [facility] 08-27-2021 09:34-0500 Respiratory rate 16 /min DR DAQUAN MERCADO MD [facility] 08-27-2021 09:34-0500 Systolic Blood Pressure NBP [address] DAQUAN MERCADO MD [facility] 08-27-2021 09:15-0500 Body height [address] DAQUAN MERCADO MD [facility] 08-27-2021 09:15-0500 Body weight [address] DAQUAN MERCADO MD [facility] 08-27-2021 09:15-0500 Body weight 28.58 kg/m2 DR DAQUAN MERCADO MD [facility] 08-27-2021 09:15-0500 diastolic 97 mm[Hg] DR DAQUAN MERCADO MD [facility] 08-27-2021 09:15-0500 Heart rate 64 /min DR DAQUAN MERCADO MD [facility] 08-27-2021 09:15-0500 Respiratory rate 19 /min DR DAQUAN MERCADO MD [facility] 08-27-2021 09:15-0500 systolic 164 mm[Hg] DR DAQUAN MERCADO MD [facility] Encounters Encounter Date Encounter Type Care Provider Facility Start: 08-11-2025 ambulatory Farnaz Gudla OLS Facili ty:[facility] Start: 06-23-2025 ambulatory Farnaz Gudla OLS Facili ty:[facility] Start: 05-26-2025 End: 05-30-2025 ambulatory FITZ GA MD Facility[facility] Start: 05-26-2025 End: 05-30-2025 Outreach Lab FITZ GA MD [facility] Start: 05-06-2025 End: 05-10-2025 ambulatory FITZ GA MD Facility[facility] Start: 05-06-2025 End: 05-10-2025 Outreach Lab CAREN GASTON SPECIAL SERVICES COORDINATOR-AWS SOFTWARE DEVELOPMENT ENGINEER [facility] Start: 05-01-2025 End: 08-01-2025 ambulatory FITZ AG MD Facility:[facility] Start: 05-01-2025 End: 08-01-2025 OTHER THERAPY FITZ GA MD [facility] Start: 04-18-2025 End: 04-18-2025 ambulatory GELA NATARAJAN MD Facility:[facility] Start: 04-18-2025 End: 04-18-2025 Patient encounter procedure GELA NATARAJAN MD [facility] Start: 04-14-2025 End: 04-14-[address] ROMULO BARNARD MD [facility] Start: 04-14-2025 End: 04-14-[address] ROMULO BARNARD MD [facility] Start: 03-28-2025 End: 03-28-2025 ambulatory FITZ GA MD Facility[facility] Start: 03-28-2025 End: 03-28-2025 Patient encounter procedure FITZ GA MD [facility] Start: 03-20-2025 End: 03-20-2025 ambulatory FITZ GA MD Facility:[facility] Start: 03-06-2025 End: 03-06-2025 ambulatory FITZ GA MD Facility:[facility] Start: 03-06-2025 End: 03-06-2025 Patient encounter procedure FITZ GA MD [facility] Start: 02-20-2025 End: 02-24-2025 ambulatory FITZ GA MD Facility:[facility] Start: 02-20-2025 End: 02-24-2025 Outreach Lab FITZ GA MD [facility] Start: 02-18-2025 End: 02-18-2025 ambulatory FITZ GA MD Facility[facility] Start: 02-18-2025 End: 02-18-2025 Patient encounter procedure FITZ GA MD [facility] Start: 02-10-2025 End: 02-14-2025 ambulatory FITZ GA MD Facility:[facility] Start: 02-10-2025 End: 02-14-2025 Outreach Lab FITZ GA MD [facility] Start: 10-21-2024 End: 10-25-2024 ambulatory FITZ GA MD Facility:[facility] Start: 10-21-2024 End: 10-25-2024 Outreach Lab FITZ GA MD [facility] Start: 07-10-2024 End: 07-14-2024 Outreach Lab FITZ GA MD [facility] Start: 04-03-2024 End: 04-07-2024 ambulatory FITZ GA MD Facility:[facility] Start: 04-03-2024 End: 04-07-2024 Encounter for general adult medical examination without abnormal findings FITZ GA MD Facility:[facility] Start: 04-03-2024 End: 04-07-2024 Outreach Lab FITZ GA MD [facility] Start: 01-10-2024 End: 01-14-2024 ambulatory FITZ GA MD Facility:[facility] Start: 01-10-2024 End: 01-14-2024 Outreach Lab FITZ GA MD [facility] Start: 09-18-2023 End: 09-22-2023 ambulatory FITZ GA MD Facility:[facility] Start: 09-18-2023 End: 09-22-2023 Outreach Lab FITZ GA MD [facility] Start: 09-11-2023 End: 09-11-2023 ambulatory GELA NATARAJAN MD Facility:[facility] Start: 07-03-2023 End: 07-07-2023 ambulatory FITZ GA MD Facility:[facility] Start: 07-03-2023 End: 07-07-2023 Outreach Lab FITZ GA MD [facility] Start: 03-29-2023 End: 04-02-2023 Outreach Lab FITZ GA MD [facility] Start: 02-01-2023 End: 02-01-[address] DAQUAN MERCADO MD [facility] Start: 01-05-2023 End: 01-05-2023 Patient encounter procedure FITZ GA MD [facility] Start: 11-24-2022 End: 11-24-2022 Patient encounter procedure GELA NATARAJAN MD [facility] Start: 09-21-2022 End: 09-25-2022 Outreach Lab FITZ GA MD [facility] Start: 08-02-2022 End: 08-02-[address] DAQUAN MERCADO MD [facility] Start: 07-15-2022 End: 09-07-[address] ALFONSO BERRIOS DPM [facility] Start: 06-22-2022 End: 06-26-2022 Outreach Lab FITZ GA MD [facility] Start: 06-06-2022 End: 06-06-2022 Emergency department patient visit DR HARSHAD TEIXEIRA MD [facility] Start: 06-05-2022 End: 06-05-2022 Emergency department patient visit RODRI SY DO [facility] Start: 06-03-2022 End: 06-03-[address] DAQUAN MERCADO MD [facility] Start: 04-29-2022 End: 04-29-2022 Patient encounter procedure JABIER BLAKE SPECIAL SERVICES COORDINATOR-COOK MANAGER [facility] Start: 04-21-2022 End: 04-21-[address] ROMULO BARNARD MD [facility] Start: 03-23-2022 End: 03-27-2022 Outreach Lab FITZ GA MD [facility] Start: 03-03-2022 End: 03-03-[address] DAQUAN MERCADO MD [facility] Start: 12-21-2021 End: 12-21-2021 Patient encounter procedure FITZ GA MD [facility] Start: 12-08-2021 End: 12-08-2021 Emergency department patient visit DR OC COULTER MD [facility] Start: 10-26-2021 End: 10-26-[address] DAQUAN MERCADO MD [facility] Start: 09-16-2021 End: 09-16-2021 Patient encounter procedure FITZ GA MD [facility] Start: 08-27-2021 End: 08-27-[address] DAQUAN MERCADO MD [facility] Procedures Date Procedure Procedure Detail Performing Clinician Start: 08-27-2021 Injection of knee joint DR DAQUAN MERCADO MD Start: 10-19-2020 Local anesthetic sac ral epidural block DR DAQUAN MERCADO MD Comment on above: 60% for one month Start: 02-07-2020 Local anesthetic sac ral epidural block DR DAQUAN MERCADO MD Comment on above: 60% relief for 4-5mo nt Start: 08-02-2017 Lumbar spondylosis (disorder) DR DAQUAN MERCADO MD Comment on above: Left laminectomy, L4 laminectomy, partial S1 laminectomy, Pedicle screw fusion bilaterally at L4, and L5, Foraminotomies at L4-L5 adn L5-S1, autologous bone graft and MTF allograft in the lateral gutters, Hospitalized, Dr. Yash Bauer Start: 06-22-[address] DAQUAN CROUCH MD Comment on above: [facility] Dr. Jose L powell Start: 06-27-2007 Excision of cervical intervertebral disc DR DAQUAN MERCADO MD Comment on above: Hospitalized, Cervic al stenosis due to herniated nucleus pulposus at C6-7. Insertion of bone graft, plate and screws. Dr. Yash Bauer 2019-nCoV vaccination DR MARIETTA MERCADO MD Comment on above: moderna Appendectomy DR DAQUAN HYLTON MD Back problem (finding) DR DARRYL MERCADO MD Cholecystectomy DR DAQUAN GUERRA MD Heel structure (body structure) DR DAQUAN MERCADO MD Comment on above: left achilles tendon Immunizations Immunization Date Immunization Notes Care Provider Fa [facility] 03-15-2022 COVID-19, mRNA, LNP- S, PF, 100 mcg or 50 mcg dose; Translations: [Moderna COVID-19 Vaccine] FITZ GA MD [facility] 09-14-2021 COVID-19, mRNA, LNP- S, PF, 100 mcg/ 0.5 mL dose; Translations: [Moderna COVID-19 Vaccine] FITZ GA MD [facility] 12-03-2020 SARS-CoV-2 (COVID-19 ) mRNA-[address] DAQUAN MERCADO MD [facility] 06-26-2019 influenza virus vaccine, unspecified formulation DR DAQUAN MERCADO MD [facility] 04-08-2019 tetanus and diphther ia toxoids, adsorbed, preservative free, for adult use (2 Lf of tetanus toxoid and 2 Lf of diphtheria toxoid); Translations: [Tenivac] DR DAQUAN MERCADO MD [facility] Payers Date Payer Category Payer Self-pay 2023 Unknown [id number] 2022 Private Health Insurance [id number] 2022 Unknown [id number] 1942 Unknown [id number] 2.16.8 40.1.824114.3.579.2.62 1942 Unknown [id number] 2.16.8 40.1.313783.3.579.2.62 1942 Unknown [id number] 2.16.8 40.1.826506.3.579.2.62 1942 Unknown [id number] 2.16.8 40.1.077591.3.579.2. 1942 Unknown [id number] 2.16.8 40.1.409944.3.579.2. 1942 Unknown [id number] 2.16. 840.1.534962.3.579.2. 1942 Unknown [id number] 2.16. 840.1.975513.3.579.2. 1942 Unknown [id number] 2.16. 840.1.464987.3.579.2. 1942 Unknown [id number] 2.16. 840.1.649687.3.579.2.62 1942 Unknown [id number] 2.16. 840.1.331901.3.579.2. 1942 Unknown [id number] 2.16. 840.1.868523.3.579.2. 1942 Unknown [id number] 2.16. 840.1.239639.3.579.2. 1942 Unknown [id number] 2.16.8 40.1.305084.3.579.2.62 1942 Unknown [id number] 2.16.8 40.1.907961.3.579.2. 1942 Unknown [id number] 2.16.8 40.1.640909.3.579.2.627 1942 Unknown [id number] 2.16.8 40.1.321901.3.579.2.627 1942 Unknown [id number] 2.16.8 40.1.364556.3.579.2.627 Unknown [id number] 2.16.8 40.1.165260.3.579.2.462 Unknown [id number] 2.16.8 40.1.201213.3.579.2.462 Social History Date Type Detail Facility Start: 04-30-2019 End: 03-06-2025 Never smoked tobacco (finding) [facility] Sex Assigned At Female [facility] Sexual Orientation [facility] Start: 07-23-2020 Sex Female (finding) [facility] Functional Status Date Assessment Result Facility 06-06-2022 Functional Status Up ad paula [facility] 06-05-2022 Functional Status Independent [facility] 06-05-2022 Functional Status Standard Safet y ID band on, Allergy Band on, Call device within reach, Bed in low position, Wheels locked, Upper/Half-Length side-rails up, Phone within reach, Visitor at bedside, Safety level maintained [facility] Mental Status Date Assessment Result Facility 06-06-2022 Mental Status Oriented x [address] [facility] 06-05-2022 Mental Status Orientation Oriented x 4 [facility] 06-05-[address] [facility] Clinical Notes 08-27-2021 to 05-01-2025 Note Date & Type Note Facility 05-01-2025 Note Vitals: Weight: 149.2 pounds History and Physical: [facility]int[facility] for a follow-up diabetic visit. Her most recent A1c was 6.7% (02/10/25). She is currently managed on glimepiride 4mg daily. She utilizes a clinic provided glucometer to monitor her blood sugar. Medications: acetaminophen: mg = tab(s), Oral, q8h apixaban: 5 mg = 1 tab(s), Oral, BID ascorbic acid: 500 mg = 1 tab(s), Oral, BID atorvastatin: 10 mg = 1 tab(s), Oral, qDay cyclobenzaprine: 10 mg = 1 tab(s), Oral, qHS escitalopram: 10 mg = 1 tab(s), Oral, qDay ferrous sulfate: 325 mg = 1 tab(s), Oral, BID furosemide: 20 mg = 1 tab(s), Oral, qDay glimepiride: 4 mg = 1 tab(s), Oral, qDay levothyroxine: 25 mcg = 1 tab(s), Oral, qDayAC LORazepam: 1 mg = 1 tab(s), Oral, qHS metoprolol: 25 mg = 1 tab(s), Oral, BID, Do not crush or chew (controlled release) pantoprazole: 40 mg = 1 tab(s), Oral, qDay Labs: -POC B mg/dL (ppg)HbA1c: 6.7% (02/10/25). Diabetes Type I Labs Cholesterol: 115 mg/dL (02/10/25) HDL Cholesterol: 35 mg/dL Low (02/10/25) LDL Cholesterol: 46 mg/dL (02/10/25) Triglycerides: 170 mg/dL High (02/10/25) Creatinine Lvl (s): 0.98 mg/dL High (03/20/25) TSH: 4.13 mcIU/mL High (02/10/25) Hgb A1c: 6.7 % High (02/10/25) Blood Glucose Monitoring: -Frequency: Cintia checks her blood sugar a few times a week. All readings are fasting. -Testing Results: Fastin, 116, 127, 118, 137, 133, 120, 132, 115, 117, 124, 109, 111, 123 Acute Complications: -Hypoglycemia: Cintia denies any signs or symptom of hypoglycemia. -Hyperglycemia: Cintia denies any signs or symptom of hyperglycemia. Nutrition & Physical Activity: Cintia denies any changes in her diet or exercise since her last visit. Assessment and Plan: Cintia's A1c resulted at 5.7% today, which is well below her goal. She denies any signs or symptoms of hypoglycemia or hyperglycemia. Cintia is tolerating her glimepiride well. No medication changes will be made today. Cintia states she is moving into an assisted living facility next month so this will be her last visit with the [facility]. Provided her a box of test strips and explained she will no longer be able to get testing supplies with us if she is not a current patient. Cintia expressed understanding. She did state that the single use lancets have been very useful for her as she is now able to check her blood sugar at home. Wished Cintia well as she transitions into the assisted living facility. Encouraged her to call the clinic with any questions or concerns. Total time spent caring for the patient today was 21 minutes. This includes time spent before the visit reviewing the chart (lab results, past visit documentation, etc.), time spent during the visit, and time spend after the visit on documentation, sending in prescriptions, consulting with peers, etc. Digitally Signed by Dhruv Cook PharmD on 05/01/2025 03:23 PM [facility] 04-18-2025 Note Exam Date Time Procedure Performing Provider Status 04/18/25 9:33 AM Echocardiogram, Adult - CV SHELL MEDLEY MD; Auth (Verified) [facility]05-17-2025 Note. MICRO - Microbiology PROCEDURE: Culture Wound Aerobic with Gram Stain [*1] SOURCE: Abscess BODY SITE: Neck COLLECTED DATE/TIME: 02/20/2025 16:26 EDT RECEIVED DATE/TIME: 02/20/2025 18:45 EDT START DATE/TIME: 02/20/2025 18:45 EDT FREE TEXT SOURCE: FINAL REPORTS Final Report [] Verified Date/Time/Personnel: 02/22/2025 09:45 EDT Few normal skin bernabe present. Sensitivity testing not indicated. PRELIMINARY REPORTS Preliminary Report [] Verified Date/Time/Personnel: 02/21/2025 12:13 EDT Culture results pending. STAINS GS [] Verified Date/Time/Personnel: 02/20/2025 19:04 EDT 4+ Polymorphonuclear cells 2+ Gram Positive Cocci Performing Locations *1: This test was performed at: [facility], [address] [place] [address], [id number] , [facility]05-13-2025 Note* Exam Date Time Procedure Performing Provider Status 02/18/25 2:[address] Abdomen/Pelvis w/Contrast GUDELIA WISDOM MD; Auth (Verified) [id number] ORIGINAL EXAMINATION: CT OF THE ABDOMEN AND PELVIS WITH CONTRAST 02/18/2025 2:16 pm TECHNIQUE: CT of the abdomen and pelvis was performed with the administration of intravenous contrast. Multiplanar reformatted images are provided for review. Automated exposure control, iterative reconstruction, and/or weight based adjustment of the mA/kV was utilized to reduce the radiation dose to as low as reasonably achievable. COMPARISON: 12/27/2021 HISTORY: ORDERING SYSTEM PROVIDED HISTORY: Reason for Exam: elevated LFT and anemia diarrhea x 4 months, no pain FINDINGS: No significant findings in the imaged lower thorax. Liver, pancreas, spleen and adrenal glands are unremarkable. Cholecystectomy with slight interval increased dilation of the biliary tree which. Symmetric nephrograms with areas of cortical thinning similar to prior. Numerous subcentimeter bilateral renal cysts. 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 No mass, calculus or hydronephrosis. Unremarkable bladder and uterus. No pelvic or inguinal lymphadenopathy. No bowel dilation or wall thickening. Nonvisualized appendix, no pericecal inflammatory changes are present. Tiny fat containing umbilical hernia. No free intraperitoneal air. No abdominal lymphadenopathy. Atherosclerosis of the abdominal aorta and its major branches without aneurysm. No acute osseous findings. Moderate to severe multilevel degenerative changes of the spine. Posterior fusion hardware of L3-L5. Degenerative changes of the hips. IMPRESSION: No acute intra-abdominal or intrapelvic findings. Interval slightly increased biliary tree dilation which may be normal for this patient. Correlate with serum ALP regarding the need for further study. I have personally reviewed the images of this examination and agree with the resident's findings and interpretation. Interpreted by: Samaria Wisdom MD Preliminary Report By: Elijah Landin Electronically signed By Samaria Wisdom MD Dictated Date: 02/18/2025 2:25:51 PM Prelim Date: 02/18/2025 4:10:18 PM Sign Date: 02/18/2025 4:10:18 PM Ordering Provider: FITZ GA [facility] [id number] Note Vitals: Weight: 149.6 pounds History and Physical: Yolie presents to the [facility] today for a follow-up diabetic visit. Her most recent A1c was 8.0% (10/21/24). She is currently managed on glimepiride 4mg daily. She utilizes a glucometer to monitor her blood sugar. Medications: acetaminophen: mg = tab(s), Oral, q8h apixaban: 5 mg = 1 tab(s), Oral, BID atorvastatin: 10 mg = 1 tab(s), Oral, qDay cyclobenzaprine: 5 mg = 1 tab(s), Oral, qHS escitalopram: 10 mg = 1 tab(s), Oral, qDay furosemide: 20 mg = 1 tab(s), Oral, qDay glimepiride: 4 mg = 1 tab(s), Oral, qDay metoprolol: 25 mg = 1 tab(s), Oral, qDay, Do not crush or chew (controlled release) pantoprazole: 40 mg = 1 tab(s), Oral, qDay Labs: -POC B mg/dL (ppg)HbA1c: 8.0% (10/21/24) Diabetes Type I Labs Cholesterol: 149 mg/dL (10/21/24) HDL Cholesterol: 38 mg/dL Low (10/21/24) LDL Cholesterol: 75 mg/dL (10/21/24) Triglycerides: 181 mg/dL High (10/21/24) Creatinine Lvl (s): 1.13 mg/dL High (10/21/24) TSH: 1.72 mcIU/mL (10/21/24) Hgb A1c: 8 % High (10/21/24) Blood Glucose Monitoring: -Frequency: Yolie tries to check her blood sugar once daily. She has difficulty trying to obtain enough blood. -Testing Results: Fastin, 110, 135, 159, 139, 159 Post-prandial: 154 Acute Complications: -Hypoglycemia: Denies any signs or symptoms of hypoglycemia. Cintia did ask about her fasting blood sugar readings that were in the 110s as she was worried these may be too low. Counseled patient on signs/symptoms of hypoglycemia. Reminded patient to only take her glimepiride if she is going to eat to help prevent any low blood sugar readings. -Hyperglycemia: Denies any signs or symptoms of hyperglycemia. Nutrition & Physical Activity: No big changes in her exercise since her last visit. She states she is eating less chocolate now. Assessment and Plan: Pleased with Cintia's A1c of 6.6%. Reviewed her blood sugar readings with her, she only has a few readings as she is struggling with her lancing device. Lancing device is set to the deepest setting andpatrick is still not able to get enough blood. Discussed buying the single use lancets that do not require a lancing device (similar to the ones used in office) as they may work better. Cintia states she will stop by the drug store on her way home to pick some up. Cintia has not seen her primary care doctor to discuss resuming her Farxiga. She is currently tolerating her glimepiride well and denies any tolerability issues. Will not make any medication changes today. Instructed Cintia to call the clinic if her primary care wants to resume the Farxiga as the clinic will help her apply for clean up supervisor PAP. Patient will follow-up in three months for her next A1c check. Encouraged her to call the clinic with any questions or concerns between now and her next visit. Total time spent caring for the patient today was 25 minutes. This includes time spent before the visit reviewing the chart (lab results, past visit documentation, etc.), time spent during the visit,and time spend after the visit on documentation, sending in prescriptions, consulting with peers, etc. Digitally Signed by Dhruv Cook PharmD on 01/30/2025 01:29 PM [facility]03-27-2025 Note Vitals: - Weight: 151.8lbs History and Physical: Yolie presents to the [facility] for an initial visit on diabetes management. She is currently managed on glimepiride 4mg daily. She was previously well controlled on Farxiga 10mg daily but stoppedtaking this due to the high copay. The main focus on today's visit will be setting her up with [facility] provided glucometer and testing supplies and counseling her on proper use. Past Medical History: Problems Active Chronic diastolic heart failure Candidiasis Diabetes Muscle spasm Major depressive disorder 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 (CKD) Hypercoagulability due to atrial fibrillation Gout Well adult exam Cellulitis of thumb Knee contusion Contusion of face Acute on chronic diastolic heart failure Traumatic ulcer Ulcer of left lower leg Ulcer of right lower leg Knee pain, right Knee pain, left Pulmonary hypertension Paroxysmal A-fib Seizure Lumbar facet arthropathy Lumbar spinal stenosis Lumbar degenerative disc disease Failed back syndrome of lumbar spine Chronic low back pain Hyperlipidemia Allergic asthma GERD - Gastro-esophageal reflux disease Acquired hypothyroidism SOB (shortness of breath) Diastolic dysfunction Hypertension Neuropathy Depression Social History: - Tobacco: Denies use - Alcohol: Denies use Medications: acetaminophen: mg = tab(s), Oral, q8h apixaban: 5 mg = 1 tab(s), Oral, BID atorvastatin: 10 mg = 1 tab(s), Oral, qDay cyclobenzaprine: 5 mg = 1 tab(s), Oral, qHS escitalopram: 10 mg = 1 tab(s), Oral, qDay furosemide: 20 mg = 1 tab(s), Oral, qDay glimepiride: 4 mg = 1 tab(s), Oral, qDay metoprolol: 25 mg = 1 tab(s), Oral, qDay, Do not crush or chew (controlled release) pantoprazole: 40 mg = 1 tab(s), Oral, qDay Labs: - POC Bmg/dL - POC HbA1c: 8% (10/21/24) Diabetes Labs No qualifying data available. Diabetes Type I Labs Cholesterol: 149 mg/dL (10/21/24) HDL Cholesterol: 38 mg/dL Low (10/21/24) LDL Cholesterol: 75 mg/dL (10/21/24) Triglycerides: 181 mg/dL High (10/21/24) Creatinine Lvl (s): 1.13 mg/dL High (10/21/24) TSH: 1.72 mcIU/mL (10/21/24) Hgb A1c: 8 % High (10/21/24) Immunizations: - Influenza: Denies - Pneumococcal: Denies - COVID-19: Up to date Yearly Diabetic Exams: - Eye Exam: Completed in 2024 - Foot Exam: Completed in 2024 by outside deliverer Blood Glucose Monitoring: Currently is not checking her blood sugar due to not having a working glucometer at home. Will set her up with free [facility] provided glucometer and testing supplies. Acute Complications: - Hypoglycemia: Denies signs or symptoms -Hyperglycemia: Denies signs or symptoms Nutrition: Discussed the importance of limiting carbohydrate intake and focus on having a high fiber and high protein diet. Physical Activity: Patient was educated on the importance of doing moderate physical activity for at least 150 minutesper week spread over at least 3 days per week. Assessment & Plan: Provided patient with free [facility] glucometer and testing supplies. Set up current date and time. Counseled patient on proper use of the lancing device and glucometer. Patient took blood sugar inoffice with new glucometer under supervision of pharmacist to provide any assistance if needed. Patient was able to take her blood sugar and stated that she could take them at home herself. Instructed patient to take blood sugar once daily and to alternate between fasting and 2 hours after dinner readings. Patient was agreeable with this plan. Did discuss trying to get her qualified for free Farxiga through clean up supervisor PAP but patient wishes to discuss with PCP first. No medication changes today. Will continue to monitor renal function while on glimepiride. Will plan to follow up in 1 month to review sugar readings and assess medication titration then. Instructed patient to call with any sugar readings <100mg/dL or if she had any questions prior to next appointment. Total time spent caring for the patient today was 52 minutes. This includes time spent before the visit reviewing the chart (lab results, past visit documentation, reviewing CGM data, etc.), time spent during the visit, and time spent after the visit on documentation, sending in prescriptions, consulting peers, etc. Digitally Signed by Adelso Basilio on 01/02/2025 02:21 PM [facility]03-27-2025 Note Vitals: - Weight: 151.8lbs History and Physical: Yolie presents to the [facility] for an initial visit on diabetes management. She is currently managed on glimepiride 4mg daily. She was previously well controlled on Farxiga 10mg daily but stoppedtaking this due to the high copay. The main focus on today's visit will be setting her up with [facility] provided glucometer and testing supplies and counseling her on proper use. Past Medical History: Problems Active Chronic diastolic heart failure Candidiasis Diabetes Muscle spasm Major depressive disorder 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 (CKD) Hypercoagulability due to atrial fibrillation Gout Well adult exam Cellulitis of thumb Knee contusion Contusion of face Acute on chronic diastolic heart failure Traumatic ulcer Ulcer of left lower leg Ulcer of right lower leg Knee pain, right Knee pain, left Pulmonary hypertension Paroxysmal A-fib Seizure Lumbar facet arthropathy Lumbar spinal stenosis Lumbar degenerative disc disease Failed back syndrome of lumbar spine Chronic low back pain Hyperlipidemia Allergic asthma GERD - Gastro-esophageal reflux disease Acquired hypothyroidism SOB (shortness of breath) Diastolic dysfunction Hypertension Neuropathy Depression Social History: - Tobacco: Denies use - Alcohol: Denies use Medications: acetaminophen: mg = tab(s), Oral, q8h apixaban: 5 mg = 1 tab(s), Oral, BID atorvastatin: 10 mg = 1 tab(s), Oral, qDay cyclobenzaprine: 5 mg = 1 tab(s), Oral, qHS escitalopram: 10 mg = 1 tab(s), Oral, qDay furosemide: 20 mg = 1 tab(s), Oral, qDay glimepiride: 4 mg = 1 tab(s), Oral, qDay metoprolol: 25 mg = 1 tab(s), Oral, qDay, Do not crush or chew (controlled release) pantoprazole: 40 mg = 1 tab(s), Oral, qDay Labs: - POC Bmg/dL - POC HbA1c: 8% (10/21/24) Diabetes Labs No qualifying data available. Diabetes Type I Labs Cholesterol: 149 mg/dL (10/21/24) HDL Cholesterol: 38 mg/dL Low (10/21/24) LDL Cholesterol: 75 mg/dL (10/21/24) Triglycerides: 181 mg/dL High (10/21/24) Creatinine Lvl (s): 1.13 mg/dL High (10/21/24) TSH: 1.72 mcIU/mL (10/21/24) Hgb A1c: 8 % High (10/21/24) Immunizations: - Influenza: Denies - Pneumococcal: Denies - COVID-19: Up to date Yearly Diabetic Exams: - Eye Exam: Completed in 2024 - Foot Exam: Completed in 2024 by outside deliverer Blood Glucose Monitoring: Currently is not checking her blood sugar due to not having a working glucometer at home. Will set her up with free [facility] provided glucometer and testing supplies. Acute Complications: - Hypoglycemia: Denies signs or symptoms -Hyperglycemia: Denies signs or symptoms Nutrition: Discussed the importance of limiting carbohydrate intake and focus on having a high fiber and high protein diet. Physical Activity: Patient was educated on the importance of doing moderate physical activity for at least 150 minutesper week spread over at least 3 days per week. Assessment & Plan: Provided patient with free [facility] glucometer and testing supplies. Set up current date and time. Counseled patient on proper use of the lancing device and glucometer. Patient took blood sugar inoffice with new glucometer under supervision of pharmacist to provide any assistance if needed. Patient was able to take her blood sugar and stated that she could take them at home herself. Instructed patient to take blood sugar once daily and to alternate between fasting and 2 hours after dinner readings. Patient was agreeable with this plan. Did discuss trying to get her qualified for free Spoqaxiga through clean up supervisor PAP but patient wishes to discuss with PCP first. No medication changes today. Will continue to monitor renal function while on glimepiride. Will plan to follow up in 1 month to review sugar readings and assess medication titration then. Instructed patient to call with any sugar readings <100mg/dL or if she had any questions prior to next appointment. Total time spent caring for the patient today was 52 minutes. This includes time spent before the visit reviewing the chart (lab results, past visit documentation, reviewing CGM data, etc.), time spent during the visit, and time spent after the visit on documentation, sending in prescriptions, consulting peers, etc. Digitally Signed by Adelso Basilio on 01/02/2025 02:21 PM [facility]08-29-2022 Hospital Discharge instructions Patient Education 06/06/2022 11:35:08 Blister (Adult) Blister (Adult) A blister is a raised area of skin with clear, watery fluid inside. A blister can occur when the skin is damaged. Blisters can hurt when they are pressed, or if they break open. Blisters can be caused in many ways. This can happen if the skin is rubbed too hard or often. Or they can occur if the skin is hurt by the sun, a virus, or even a medicine. Most blisters need little treatment. They often dry up and go away in a few days to weeks after thecause is stopped. A blister may need to be cleaned. A broken (open) blister may be bandaged to prevent infection. Blisters caused by insect bites or drug reactions may be more serious. These should be looked at by a healthcare provider. Home care General care: Follow all instructions on how to care for the blister. If a bandage was put on, change the bandageas instructed. . If the blister breaks, the area will leak a clear fluid for a day or 2. Wash the area with soap andwater every day or as advised by your healthcare provider. You may use [id number] pain medicines to control pain, unless another medicine was prescribed. If you have chronic liver or kidney disease, talk with your healthcare provider before using thesemedicines. Also talk with your provider if you've had a stomach ulcer or gastrointestinal bleeding. Follow-up care Follow up with your healthcare provider, or as advised. When to seek medical advice Call your healthcare provider right away if any of these occur: Fever of 100.4 F (38 C) or higher Redness or swelling that is new or gets worse Foul-smelling fluid leaking from the blister Pain doesn t go away, or gets worse Increase in size of the blister Blister doesn t get better after several days [id number] [employer] [address] [place] [address], [place] [address]. All rights reserved. This information is not intended as a substitute for professional medical care. Always follow [facility] professional's instructions. 06/06/2022 11:34:36 Lower Extremity Contusion Lower Extremity Contusion You have a contusion (bruise) of a lower extremity (leg, knee, ankle, foot, or toe). Symptoms include pain, swelling, and skin discoloration. No bones are broken. This injury may take from a few daysto a few weeks to heal. During that time, the bruise may change from reddish in color, to purple-blue, to green- yellow, to yellow-brown. Home care Unless another medicine was prescribed, you can take acetaminophen, ibuprofen, or naproxen to control pain. (If you have chronic liver or kidney disease or ever had a stomach ulcer or gastrointestinal bleeding, talk with your doctor before using these medicines.) Elevate the injured area to reduce pain and swelling. As much as possible, sit or lie down with theinjured area raised about the level of your heart. This is especially important during the first 48hours. Ice the injured area to help reduce pain and swelling. Wrap a cold source (ice pack or ice cubes gladys plastic bag) in a thin towel. Apply to the bruised area for 20 minutes every 1 to 2 hours the first day. Continue this 3 to 4 times a day until the pain and swelling goes away. If crutches have been advised, do not bear full weight on the injured leg until you can do so without pain. You may return to sports when you are able to put full weight and impact on the injured legwithout pain. Follow up Follow up with your healthcare provider or our staff as advised. Call if you are not improving within the next 1 to 2 weeks. When to seek medical advice Call your healthcare provider right away if any of these occur: Increased pain or swelling Foot or toes become cold, blue, numb or tingly Signs of infection: Warmth, drainage, or increased redness or pain around the injury Inability to move the injured area , or any joints below the injured area. Frequent bruising for unknown reasons [id number] [employer] [address] [place] [address]. All rights reserved. This information is not intended as a substitute for professional medical care. Always follow yourhealthcare professional's instructions. Follow Up Care 06/06/2022 11:12:51 With:FITZ GA MD Address: [address] [facility] [place] [address]- When:2-4 days [facility] 08-29-2022 Note Discharge Instructions Thank you for allowing [facility] to assist you with your healthcare needs. The following is importantdischarge information regarding your hospital visit. Diagnosis from Today's Visit Blister Lower leg pain-swelling What to Do Next Instructions from Your Care Team No qualifying data available. Post Acute Orders No qualifying data available. You Need to Schedule the Following Appointments Follow Up with FITZ GA MD When Within 2-4 days Where: [address] [facility] [place] [address]- Allergies codeine (N/V) egg albumin (whites) (Unknown) penicillin (RASH) predniSONE (Nausea) tetracycline (Unknown) Medications Please ask your primary doctor or pharmacist before taking any other medication not listed, including over the counter drugs, herbal medications, vitamins and or supplements as they may interact withyour home medications. What How Much When Why Instructions Last Dose Unchanged acetaminophen (acetaminophen 650 mg oral tablet, extended release) by mouth Every 8 hours Unchanged acetaminophen-oxyCODONE (Percocet 5 mg-325 mg oral tablet) 1 tab(s) by mouth Every 6 hours as needed for for pain Fall Hematoma Duration: 3 Days Unchanged apixaban (Eliquis 5 mg oral tablet) 1 tab(s) by mouth Two (2) times a day Unchanged atorvastatin (atorvastatin 10 mg oral tablet) 1 tab(s) by mouth Once a day Duration: 90 Days Unchanged citalopram (citalopram 20 mg oral tablet) 1 tab(s) by mouth Once a day Unchanged cyclobenzaprine (cyclobenzaprine 10 mg oral tablet) 1 tab(s) by mouth Three (3) times a day as needed for for muscle spasm Duration: 30 Days Unchanged furosemide (Lasix 20 mg oral tablet) 1 tab(s) by mouth Every day Unchanged gabapentin (gabapentin 600 mg oral tablet) 1 tab(s) by mouth Three (3) times a day Neuropathy Duration: 30 Days Unchanged glimepiride (glimepiride 1 mg oral tablet) 1 tab(s) by mouth Once a day Unchanged levothyroxine (levothyroxine 50 mcg (0.05 mg) oral tablet) 1 tab(s) by mouth Once a day Unchanged pantoprazole (pantoprazole 40 mg oral enteric coated tablet) 1 tab(s) by mouth Once a day Unchanged potassium chloride (potassium chloride 8 mEq (600 mg) oral tablet, extended release) 1 tab(s) by mouth Once a day take with food. Unchanged sotalol (sotalol 80 mg oral tablet) 1 tab(s) by mouth Two (2) times a day Please take this list to your next doctor s visit. Bring all medications you take, including over the counter medications, herbals and other supplements with you to your doctor s visit. Patients and families are reminded to discard old lists and to update any records with all medication providers or retail pharmacies. Education Materials Blister (Adult) A blister is a raised area of skin with clear, watery fluid inside. A blister can occur when the skin is damaged. Blisters can hurt when they are pressed, or if they break open. Blisters can be caused in many ways. This can happen if the skin is rubbed too hard or often. Or they can occur if the skin is hurt by the sun, a virus, or even a medicine. Most blisters need little treatment. They often dry up and go away in a few days to weeks after thecause is stopped. A blister may need to be cleaned. A broken (open) blister may be bandaged to prevent infection. Blisters caused by insect bites or drug reactions may be more serious. These should be looked at by a healthcare provider. Home care General care: Follow all instructions on how to care for the blister. If a bandage was put on, change the bandageas instructed. . If the blister breaks, the area will leak a clear fluid for a day or 2. Wash the area with soap andwater every day or as advised by your healthcare provider. You may use cpcb-vuy-zqciptu pain medicines to control pain, unless another medicine was prescribed. If you have chronic liver or kidney disease, talk with your healthcare provider before using thesemedicines. Also talk with your provider if you've had a stomach ulcer or gastrointestinal bleeding. Follow-up care Follow up with your healthcare provider, or as advised. When to seek medical advice Call your healthcare provider right away if any of these occur: Fever of 100.4 F (38 C) or higher Redness or swelling that is new or gets worse Foul-smelling fluid leaking from the blister Pain doesn t go away, or gets worse Increase in size of the blister Blister doesn t get better after several days [id number] [employer]. [address] [place] [address], [place] [address]. All rights reserved. This information is not intended as a substitute for professional medical care. Always follow yourhealthcare professional's instructions. Lower Extremity Contusion You have a contusion (bruise) of a lower extremity (leg, knee, ankle, foot, or toe). Symptoms include pain, swelling, and skin discoloration. No bones are broken. This injury may take from a few daysto a few weeks to heal. During that time, the bruise may change from reddish in color, to purple-blue, to green- yellow, to yellow-brown. Home care Unless another medicine was prescribed, you can take acetaminophen, ibuprofen, or naproxen to control pain. (If you have chronic liver or kidney disease or ever had a stomach ulcer or gastrointestinal bleeding, talk with your doctor before using these medicines.) Elevate the injured area to reduce pain and swelling. As much as possible, sit or lie down with theinjured area raised about the level of your heart. This is especially important during the first 48hours. Ice the injured area to help reduce pain and swelling. Wrap a cold source (ice pack or ice cubes gladys plastic bag) in a thin towel. Apply to the bruised area for 20 minutes every 1 to 2 hours the first day. Continue this 3 to 4 times a day until the pain and swelling goes away. If crutches have been advised, do not bear full weight on the injured leg until you can do so without pain. You may return to sports when you are able to put full weight and impact on the injured legwithout pain. Follow up Follow up with your healthcare provider or our staff as advised. Call if you are not improving within the next 1 to 2 weeks. When to seek medical advice Call your healthcare provider right away if any of these occur: Increased pain or swelling Foot or toes become cold, blue, numb or tingly Signs of infection: Warmth, drainage, or increased redness or pain around the injury Inability to move the injured area , or any joints below the injured area. Frequent bruising for unknown reasons [id number] [employer] [address] [facility] [facility], [place] [address]. All rights reserved. This information is not intended as a substitute for professional medical care. Always follow yourhealthcare professional's instructions. Additional Information VACCINATE! IT SAVES LIVES! Members of the community who have not yet received the COVID-19 vaccine and would like to receive it can visit one of [facility] vaccine clinics. There are many vaccine clinic locations within the [facility]. For locations and available times, please visit [email or web address]. It is important to note that some COVID mobile vaccine clinics are held outdoors and may be canceled in rainy orstormy conditions. To learn more about pediatric vaccinations (ages 5-11), we invite you to visit the [facility] webpage. [email or web address] [email or web address].htmlTo learn more about the COVID-19 vaccine, we invite you to visit the [facility] website for a list of frequently asked questions. [email or web address] _[email or web address] [facility] Patient Portal Access Instructions: Stay connected with your healthcare team and access your personal medical information anytime with the [facility] Patient Portal. If you would like a full copy of your medical records please contact the [facility] Medical Records Department Monday through Monday between 8a.m. and 4:30p.m. Please follow the directions below to access the portal: 1.Access the email account you provided upon registration to the hospital.2.Look for an invitation email from [facility].3.Open the email and access the invitation link: Accept Invitation to [facility]4.Fill in the required meredith to create your account. Sign into [email or web address] with your username and password that you created in the above steps to stay up to date. You can then view a summary of results, a summary of your visits, and the ability to download your summaries to your computer or send the information securely to a physician. Remember that your healthcare information is confidential, so carefully consider who you will allow to register on the [facility] Patient Portal for access to your information. You can also access the [facility] Patient Portal on the [employer] roya. Simply click on "Health Records" under "HealthData" and then click on the [facility] logo. HOW TO SAFELY DISPOSE OF PRESCRIPTION MEDICATIONS Please use one of the following methods to safely dispose of your unused medications. 1.Use a drug disposal kit: the drug disposal pouch allows you to safely discard your old and unuseddrugs. Ask your nurse to give you one when you are discharged.2.Visit a local take-back location: Many local pharmacies and police departments have programs that collect old and unwanted prescriptiondrugs. Call your local pharmacy or go to http://SOAMAI.800razors/2O9Zf8a to find one close to you.3.Make use of household items: Use cat litter or old coffee grounds to dispose medications if other options arenot available. Mix your drugs with these household products, seal them in an airtight container andthrow it into the garbage. Call [facility]: [phone] to be sure your drugs can be disposed of in this way. Some medicines may require a different approach.4.Never flush your medications down the toilet. IF YOU HAVE BEEN PRESCRIBED AN OPIOIDS FOR PAIN If you have been prescribed an opioid (such as hydrocodone, oxycodone or morphine), it is critical to understand the possible side effects and risks of opioid pain medications. Even when taken as directed, opioids can have several side effects including: Tolerance, meaning you might need to take more of a medication for the same pain relief. Nausea, vomiting and/or constipation. Sleepiness, dizziness, dry mouth, confusion, depression or itching. Physical dependence, meaning you have withdrawal symptoms when a medication is stopped ? this can develop within a few days. KNOW YOUR RESPONSIBILITIES It is important to know exactly how much and how often to take the opioid pain medications you are prescribed. Never take opioids in higher amounts or more often than prescribed. Do not combine opioids with alcohol or other drugs that cause drowsiness, such as benzodiazepines, also known as benzos,including diazepam and alprazolam, muscle relaxants or sleep aids. Never sell or share prescriptionopioids. This is illegal. Store opioids in a secure place and out of reach of others (including children, family, friends and visitors). The last page(s) of this document has been signed and retained as a CHART COPY Signatures Patient Education Materials Blister (Adult) Lower Extremity Contusion Medication Leaflets My discharge plan and instructions have been reviewed and explained to me and IISABELLA JUDITH E understand my current condition and have read and understand these discharge instructions. I have received a written copy of the plan/instructions. If I have questions, I am aware that I should contact my doctor. 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 The following is importantdischarge information regarding your hospital visit. Diagnosis from Today's Visit Fall Hematoma Lower leg pain-swelling What to Do Next Instructions from Your Care Team Take Percocet only as needed for severe pain. Do not take before operating heavy machinery. Do not exceed the recommended dose. May otherwise take Tylenol and or Motrin but be careful in taking Tylenol as Percocet does contain some Tylenol do not exceed recommended daily dose. Continue to use compression, elevation, ice as needed. Would hold your Eliquis for today given the large hematoma and call your doctor tomorrow for close follow-up. Return to the emergency department immediately if develop worsening pain, inability to ambulate, numbness, decreased blood flow to your foot or toes, or anyother care concern. Follow-up with Dr. Savage of orthopedic surgery if continued leg pain/swelling. No qualifying data available. Post Acute Orders No qualifying data available. You Need to Schedule the Following Appointments Follow Up with DO SAMARIA SAVAGE DO When Within 3-7 days Where: [address] [facility] [address] [place] [address] Follow Up with Go to emergency room if symptoms worsen When Within 2-4 days Follow Up with FITZ GA MD When Within 2-4 days Where: [address] [place] [address]- Allergies codeine (N/V) egg albumin (whites) (Unknown) penicillin (RASH) predniSONE (Nausea) tetracycline (Unknown) Medications Please ask your primary doctor or pharmacist before taking any other medication not listed, including over the counter drugs, herbal medications, vitamins and or supplements as they may interact withyour home medications. What How Much When Why Instructions Last Dose New acetaminophen-oxyCODONE (Percocet 5 mg-325 mg oral tablet) 1 tab(s) by mouth Every 6 hours as needed for for pain Fall Hematoma Duration: 3 Days Printed Prescription Unchanged acetaminophen (acetaminophen 650 mg oral tablet, extended release) by mouth Every 8 hours Unchanged apixaban (Eliquis 5 mg oral tablet) 1 tab(s) by mouth Two (2) times a day Unchanged atorvastatin (atorvastatin 10 mg oral tablet) 1 tab(s) by mouth Once a day Duration: 90 Days Unchanged citalopram (citalopram 20 mg oral tablet) 1 tab(s) by mouth Once a day Unchanged cyclobenzaprine (cyclobenzaprine 10 mg oral tablet) 1 tab(s) by mouth Three (3) times a day as needed for for muscle spasm Duration: 30 Days Unchanged furosemide (Lasix 20 mg oral tablet) 1 tab(s) by mouth Every day Unchanged gabapentin (gabapentin 600 mg oral tablet) 1 tab(s) by mouth Three (3) times a day Neuropathy Duration: 30 Days Unchanged glimepiride (glimepiride 1 mg oral tablet) 1 tab(s) by mouth Once a day Unchanged levothyroxine (levothyroxine 50 mcg (0.05 mg) oral tablet) 1 tab(s) by mouth Once a day Unchanged pantoprazole (pantoprazole 40 mg oral enteric coated tablet) 1 tab(s) by mouth Once a day Unchanged potassium chloride (potassium chloride 8 mEq (600 mg) oral tablet, extended release) 1 tab(s) by mouth Once a day take with food. Unchanged sotalol (sotalol 80 mg oral tablet) 1 tab(s) by mouth Two (2) times a day Please take this list to your next doctor s visit. Bring all medications you take, including over the counter medications, herbals and other supplements with you to your doctor s visit. Patients and families are reminded to discard old lists and to update any records with all medication providers or retail pharmacies. Education Materials Hematoma A hematoma is a collection of blood trapped outside of a blood vessel. It is what we think of as a bruise or a contusion. It is usually seen under the skin as a black and blue spot on your arm or leg, or a bump on your head after an injury. It can be almost anywhere on or in your body. It can also occur in an internal organ where it can be more serious. A hematoma is caused by an injury with damage to small blood vessels. This causes blood to leak into the tissues. Blood forms a pocket under the skin that swells and looks like a purplish patch. Hematomas sometimes form under the skin from bleeding during childbirth and can be particularly serious.Another serious form of hematoma forms after a fall on the head, called a subdural hematoma. Gradually the blood in the hematoma is absorbed back into the body. The swelling and pain of the hematoma will go away. This takes from 1 to 4 weeks, depending on the size of the hematoma. The skin over the hematoma may turn bluish then brown and yellow as the blood is dissolved and absorbed. Usually, this only takes a couple of weeks but can last months. Home care Limit motion of the joints near the hematoma. If the hematoma is large and painful, avoid sports and other vigorous physical activity until the swelling and pain goes away. Apply an ice pack (ice cubes in a plastic bag, or a frozen bag of peas, wrapped in a thin towel) over the injured area for 20 minutes every 1 to 2 hours the first day. Continue with ice packs 3 to 4 times a day for the next 2 days. Continue the use of ice packs for relief of pain and swelling as needed. If you need anything for pain, you can take acetaminophen, unless you were given a different pain medicine to use. Talk with your healthcare provider before using this medicine if you have chronic liver or kidney disease. Also talk with your healthcare provider if you have had a stomach ulcer or digestive tract bleeding, or are taking blood-thinner medicines. Follow-up care Follow up with your healthcare provider, or as advised. If X-rays or a CT scan were done, you will be notified if there is a change in the reading, especially if it affects treatment. When to seek medical advice Call your healthcare provider right away if any of the following occur: Redness around the hematoma Increase in pain or warmth in the hematoma Increase in size of the hematoma Fever of 100.4 F (38 C) or higher, or as directed by your healthcare provider If the hematoma is on the arm or leg, watch for: oIncreased swelling or pain in the extremity oNumbness or tingling or blue color of the hand or foot [id number] [employer]. [address] [place] [address], [place] [address]. All rights reserved. This information is not intended as a substitute for professional medical care. Always follow yourhealthcare professional's instructions. Mechanical Fall You have had a fall today. It appears that the cause is what is called mechanical. That means that you slipped, tripped, or lost your balance. If your fall had been because of fainting or a seizure, you might need other tests. It is normal to feel sore and tight in your muscles and back the next day, and not just the musclesyou injured at first. Remember, all the parts of your body are connected, so while initially one area hurts, the next day another may hurt. Also, when you injure yourself, it causes inflammation, which then causes the muscles to tighten up and hurt more. After the initial worsening, it should gradually improve over the next few days. Do report more severe pain. Even without a definite head injury, you can still get a concussion from your head suddenly jerkingforward, backward, or sideways when falling. Concussions and even bleeding can still happen, especially if you have had a recent injury or take blood thinner medicine. It is not unusual to have a mild headache and feel tired and even nauseous or dizzy. Home care Rest today and go back to your normal activities when you are feeling back to normal. If you were injured during the fall, follow the advice from your healthcare provider regarding careof your injury. At first, do not try to stretch out the sore spots. If there is a strain, stretching may make it worse. Massage may help relax the muscles without stretching them. You can use an ice pack or cold compress on and off to the sore spots 10 to 20 minutes at a time, as often as you feel comfortable. This may help reduce the inflammation, swelling and pain. If you have any scrapes or abrasions, they usually heal within 10 days. It is important to keep theabrasions clean while they initially start to heal. However, an infection may happen even with proper care, so watch for early signs of infection (such as warmth, redness, or swelling). Medicines Talk to your healthcare provider before taking new medicines, especially if you have other medical problems or are taking other medicines. If you need anything for pain, you can take acetaminophen or ibuprofen, unless you were given a different pain medicine to use. Talk with your healthcare provider before using these medicines if you have chronic liver or kidney disease, or ever had a stomach ulcer or gastrointestinal bleeding, or are taking blood thinner medicines. Be careful if you are given prescription pain medicines, narcotics, or medicine for muscle spasm. They can make you sleepy and dizzy, and can affect your coordination, reflexes, and judgment. Do not drive or do work where you can injure yourself when taking them. Fall prevention Fix, remove, or replace anything that caused your fall. Make your home safe by keeping walkways clear of objects you may trip over. Use nonslip pads under rugs. Don't use small area rugs or throw rugs. Don't walk in poorly lit areas. Don't stand on chairs or wobbly ladders. Use caution when reaching overhead or looking upward. This position can cause a loss of balance. Be sure your shoes fit properly, have nonslip bottoms and are in good condition. Be cautious when going up and down curbs, and walking on uneven sidewalks. If your balance is poor, consider using a cane or walker. Stay as active as you can. Balance, flexibility, strength, and endurance all come from exercise. They all play a role in preventing falls. If you have pets, know where they are before you stand up or walk so you don't trip over them. Limit alcohol intake. Alcohol can cause balance problems and increase the risk of falls. Use night lights. Have your eyes tested to be sure you are seeing well, even if you already wear glasses. Follow-up Follow up with your healthcare provider, or as advised. If X-rays or CT scans were done, you will be notified if there is a change in the reading, especially if it affects treatment. Call 911 Call 911 if any of these happen: Trouble breathing Confused or difficulty arousing Fainting or loss of consciousness Rapid or very slow heart rate Seizure Difficulty with speech or vision, weakness of an arm or leg Difficulty walking or talking, loss of balance, numbness or weakness in one side of your body, or facial droop When to seek medical advice Call your healthcare provider right away if any of these happen: Repeated mechanical falls, or unexplained falls Dizziness Severe headache Blood in vomit, stools (black or red color) [id number] [employer]. [address] [place] [address]. All rights reserved. This information is not intended as a substitute for professional medical care. Always follow yourhealthcare professional's instructions. Additional Information VACCINATE! IT SAVES LIVES! Members of the community who have not yet received the COVID-19 vaccine and would like to receive it can visit one of [facility] vaccine clinics. There are many vaccine clinic locations within the [facility]. For locations and available times, please visit [email or web address]. It is important to note that some COVID mobile vaccine clinics are held outdoors and may be canceled in rainy orstormy conditions. To learn more about pediatric vaccinations (ages 5-11), we invite you to visit the [facility] webpage. [email or web address] [email or web address] learn more about the COVID-19 vaccine, we invite you to visit the [facility] website for a list of frequently asked questions. [email or web address] [facility] Patient Portal Access Instructions: Stay connected with your healthcare team and access your personal medical information anytime with the [facility] Patient Portal. If you would like a full copy of your medical records please contact the [facility] Medical Records Department Monday through Monday between 8a.m. and 4:30p.m. Please follow the directions below to access the portal: 1.Access the email account you provided upon registration to the [facility].2.Look for an invitation email from [facility].3.Open the email and access the invitation link: Accept Invitation to [facility]4.Fill in the required meredith to create your account. Sign into [email or web address] with your username and password that you created in the above steps to stay up to date. You can then view a summary of results, a summary of your visits, and the ability to download your summaries to your computer or send the information securely to a physician. Remember that your healthcare information is confidential, so carefully consider who you will allow to register on the [employer] Patient Portal for access to your information. You can also access the [employer] Patient Portal on the [employer]. Simply click on "Health Records" under "[employer]" and then click on the [employer] logo. HOW TO SAFELY DISPOSE OF PRESCRIPTION MEDICATIONS Please use one of the following methods to safely dispose of your unused medications. 1.Use a drug disposal kit: the drug disposal pouch allows you to safely discard your old and unuseddrugs. Ask your nurse to give you one when you are discharged.2.Visit a local take-back location: Many local pharmacies and police departments have programs that collect old and unwanted prescriptiondrugs. Call your local pharmacy or go to http://ZappRx/0H2Dq7n to find one close to you.3.Make use of household items: Use cat litter or old coffee grounds to dispose medications if other options arenot available. Mix your drugs with these household products, seal them in an airtight container andthrow it into the garbage. Call [facility]: [phone] to be sure your drugs can be disposed of in this way. Some medicines may require a different approach.4.Never flush your medications down the toilet. IF YOU HAVE BEEN PRESCRIBED AN OPIOIDS FOR PAIN If you have been prescribed an opioid (such as hydrocodone, oxycodone or morphine), it is critical to understand the possible side effects and risks of opioid pain medications. Even when taken as directed, opioids can have several side effects including: Tolerance, meaning you might need to take more of a medication for the same pain relief. Nausea, vomiting and/or constipation. Sleepiness, dizziness, dry mouth, confusion, depression or itching. Physical dependence, meaning you have withdrawal symptoms when a medication is stopped ? this can develop within a few days. KNOW YOUR RESPONSIBILITIES It is important to know exactly how much and how often to take the opioid pain medications you are prescribed. Never take opioids in higher amounts or more often than prescribed. Do not combine opioids with alcohol or other drugs that cause drowsiness, such as benzodiazepines, also known as benzos,including diazepam and alprazolam, muscle relaxants or sleep aids. Never sell or share prescriptionopioids. This is illegal. Store opioids in a secure place and out of reach of others (including children, family, friends and visitors). The last page(s) of this document has been signed and retained as a CHART COPY Signatures Patient Education Materials Hematoma Fall, Mechanical Medication Leaflets My discharge plan and instructions have been reviewed and explained to me and I,YOLIE MASON understand my current condition and have read and understand these discharge instructions. I have received a written copy of the plan/instructions. If I have questions, I am aware that I should contact my doctor. 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 It is what we think of as a bruise or a contusion. It is usually seen under the skin as a black and blue spot on your arm or leg, or a bump on your head after an injury. It can be almost anywhere on or in your body. It can also occur in an internal organ where it can be more serious. A hematoma is caused by an injury with damage to small blood vessels. This causes blood to leak into the tissues. Blood forms a pocket under the skin that swells and looks like a purplish patch. Hematomas sometimes form under the skin from bleeding during childbirth and can be particularly serious.Another serious form of hematoma forms after a fall on the head, called a subdural hematoma. Gradually the blood in the hematoma is absorbed back into the body. The swelling and pain of the hematoma will go away. This takes from 1 to 4 weeks, depending on the size of the hematoma. The skin over the hematoma may turn bluish then brown and yellow as the blood is dissolved and absorbed. Usually, this only takes a couple of weeks but can last months. Home care Limit motion of the joints near the hematoma. If the hematoma is large and painful, avoid sports and other vigorous physical activity until the swelling and pain goes away. Apply an ice pack (ice cubes in a plastic bag, or a frozen bag of peas, wrapped in a thin towel) over the injured area for 20 minutes every 1 to 2 hours the first day. Continue with ice packs 3 to 4 times a day for the next 2 days. Continue the use of ice packs for relief of pain and swelling as needed. If you need anything for pain, you can take acetaminophen, unless you were given a different pain medicine to use. Talk with your healthcare provider before using this medicine if you have chronic liver or kidney disease. Also talk with your healthcare provider if you have had a stomach ulcer or digestive tract bleeding, or are taking blood-thinner medicines. Follow-up care Follow up with your healthcare provider, or as advised. If X-rays or a CT scan were done, you will be notified if there is a change in the reading, especially if it affects treatment. When to seek medical advice Call your healthcare provider right away if any of the following occur: Redness around the hematoma Increase in pain or warmth in the hematoma Increase in size of the hematoma Fever of 100.4 F (38 C) or higher, or as directed by your healthcare provider If the hematoma is on the arm or leg, watch for: oIncreased swelling or pain in the extremity oNumbness or tingling or blue color of the hand or foot [id number] [employer]. [address] [place] [address], [place] [address]. All rights reserved. This information is not intended as a substitute for professional medical care. Always follow yourhealthcare professional's instructions. 06/05/2022 04:19:45 Fall, Mechanical Mechanical Fall You have had a fall today. It appears that the cause is what is called mechanical. That means that you slipped, tripped, or lost your balance. If your fall had been because of fainting or a seizure, you might need other tests. It is normal to feel sore and tight in your muscles and back the next day, and not just the musclesyou injured at first. Remember, all the parts of your body are connected, so while initially one area hurts, the next day another may hurt. Also, when you injure yourself, it causes inflammation, which then causes the muscles to tighten up and hurt more. After the initial worsening, it should gradually improve over the next few days. Do report more severe pain. Even without a definite head injury, you can still get a concussion from your head suddenly jerkingforward, backward, or sideways when falling. Concussions and even bleeding can still happen, especially if you have had a recent injury or take blood thinner medicine. It is not unusual to have a mild headache and feel tired and even nauseous or dizzy. Home care Rest today and go back to your normal activities when you are feeling back to normal. If you were injured during the fall, follow the advice from your healthcare provider regarding careof your injury. At first, do not try to stretch out the sore spots. If there is a strain, stretching may make it worse. Massage may help relax the muscles without stretching them. You can use an ice pack or cold compress on and off to the sore spots 10 to 20 minutes at a time, as often as you feel comfortable. This may help reduce the inflammation, swelling and pain. If you have any scrapes or abrasions, they usually heal within 10 days. It is important to keep theabrasions clean while they initially start to heal. However, an infection may happen even with proper care, so watch for early signs of infection (such as warmth, redness, or swelling). Medicines Talk to your healthcare provider before taking new medicines, especially if you have other medical problems or are taking other medicines. If you need anything for pain, you can take acetaminophen or ibuprofen, unless you were given a different pain medicine to use. Talk with your healthcare provider before using these medicines if you have chronic liver or kidney disease, or ever had a stomach ulcer or gastrointestinal bleeding, or are taking blood thinner medicines. Be careful if you are given prescription pain medicines, narcotics, or medicine for muscle spasm. They can make you sleepy and dizzy, and can affect your coordination, reflexes, and judgment. Do not drive or do work where you can injure yourself when taking them. Fall prevention Fix, remove, or replace anything that caused your fall. Make your home safe by keeping walkways clear of objects you may trip over. Use nonslip pads under rugs. Don't use small area rugs or throw rugs. Don't walk in poorly lit areas. Don't stand on chairs or wobbly ladders. Use caution when reaching overhead or looking upward. This position can cause a loss of balance. Be sure your shoes fit properly, have nonslip bottoms and are in good condition. Be cautious when going up and down curbs, and walking on uneven sidewalks. If your balance is poor, consider using a cane or walker. Stay as active as you can. Balance, flexibility, strength, and endurance all come from exercise. They all play a role in preventing falls. If you have pets, know where they are before you stand up or walk so you don't trip over them. Limit alcohol intake. Alcohol can cause balance problems and increase the risk of falls. Use night lights. Have your eyes tested to be sure you are seeing well, even if you already wear glasses. Follow-up Follow up with your healthcare provider, or as advised. If X-rays or CT scans were done, you will be notified if there is a change in the reading, especially if it affects treatment. Call 911 Call 911 if any of these happen: Trouble breathing Confused or difficulty arousing Fainting or loss of consciousness Rapid or very slow heart rate Seizure Difficulty with speech or vision, weakness of an arm or leg Difficulty walking or talking, loss of balance, numbness or weakness in one side of your body, or facial droop When to seek medical advice Call your healthcare provider right away if any of these happen: Repeated mechanical falls, or unexplained falls Dizziness Severe headache Blood in vomit, stools (black or red color) [id number] [employer]. [address] [place] [address], [place] [address]. All rights reserved. This information is not intended as a substitute for professional medical care. Always follow yourhealthcare professional's instructions. Follow Up Care 06/05/2022 04:08:27 With:DO SAMARIA SAVAGE DO Address: [address] [place] [address] [address] [place] [address] When:3-7 days With:Go to emergency room if symptoms worsen Address:Unknown When:2-4 days With:FITZ GA MD Address: [address] [facility] [address] [facility] [place] [address]- When:2-4 days [facility] 08-28-2022 Note ORIGINAL EXAMINATION: TWO XRAY VIEWS OF THE LEFT TIBIA/FIBULA 06/05/2022 4:37 am COMPARISON: None. HISTORY: ORDERING SYSTEM PROVIDED HISTORY: Reason for Exam: fall, hematoma FINDINGS: There is no fracture or dislocation of left tibia or fibula. 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 Alignment of the ankle mortise appears normal. There is moderate soft tissue swelling anterior to the proximal shaft of the left tibia. No foreign body is present in the soft tissue. IMPRESSION: No fracture or dislocation of left tibia or fibula. Anterior soft tissue swelling in proximal half of left lower leg, consistent with history of hematoma. Interpreted by: Mark Herrrea MD Preliminary Report By: Mark Herrera MD Electronically signed By Mark Herrera MD Dictated Date: 06/05/2022 5:44:22 AM Prelim Date: 06/05/2022 5:46:32 AM Sign Date: 06/05/2022 5:46:32 AM Ordering Provider: RODRI SY [facility]08-28-2022 Note ORIGINAL EXAMINATION: TWO XRAY VIEWS OF THE LEFT TIBIA/FIBULA 06/05/2022 4:37 am COMPARISON: None. HISTORY: ORDERING SYSTEM PROVIDED HISTORY: Reason for Exam: fall, hematoma FINDINGS: There is no fracture or dislocation of left tibia or fibula. 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 Alignment of the ankle mortise appears normal. There is moderate soft tissue swelling anterior to the proximal shaft of the left tibia. No foreign body is present in the soft tissue. IMPRESSION: No fracture or dislocation of left tibia or fibula. Anterior soft tissue swelling in proximal half of left lower leg, consistent with history of hematoma. Interpreted by: Mark Herrera MD Preliminary Report By: Mark Herrera MD Electronically signed By Mark Herrera MD Dictated Date: 06/05/2022 5:44:22 AM Prelim Date: 06/05/2022 5:46:32 AM Sign Date: 06/05/2022 5:46:32 AM Ordering Provider: RODRI [facility]03-02-2022 Hospital Discharge instructions Patient Education 12/08/2021 11:44:06 Shoulder Sprain Shoulder Sprain A sprain is a stretching or tearing of the ligaments that hold a joint together. A sprain may take up to 8 weeks to fully heal, depending on how severe it is. Moderate to severe shoulder sprains are treated with a sling or shoulder immobilizer. Minor sprains can be treated without any special support. Home care The following guidelines will help you care for your injury at home: If a sling was given to you, leave it in place for the time advised by your healthcare provider. Ifyou aren t sure how long to wear it, ask for advice. If the sling becomes loose, adjust it so that your forearm is level with the ground. Your shoulder should feel well supported. Put an ice pack on the injured area for 20 minutes every 1 to 2 hours the first day. You can make your own ice pack by putting ice cubes in a plastic bag. A bag of frozen peas or something similar works well too. Wrap the bag in a thin towel. Continue with ice packs 3 to 4 times a day for the next 2 to 3 days. Then use the pack as needed to ease pain and swelling. You may use acetaminophen or ibuprofen to control pain, unless another pain medicine was prescribed. If you have chronic liver or kidney disease, talk with your healthcare provider before using thesemedicines. Also talk with your provider if you ve had a stomach ulcer or gastrointestinal bleeding. Shoulder joints become stiff if left in a sling for too long. You should start range of motion exercises about 7 to 10 days after the injury. Talk with your provider to find out what type of exercises to do and how soon to start. Follow-up care Follow up with your healthcare provider, or as advised. Any X-rays you had today don t show any broken bones, breaks, or fractures. Sometimes fractures dont show up on the first X-ray. Bruises and sprains can sometimes hurt as much as a fracture. These injuries can take time to heal completely. If your symptoms don t improve or they get worse, talk with your provider. You may need a repeat X-ray or other treatments. When to seek medical advice Call your healthcare provider right away if any of these occur: Shoulder pain or swelling in your arm that gets worse Fingers become cold, blue, numb, or tingly Large amount of bruising of the shoulder or upper arm Fever or chills [id number] [employer] [address] [place] [address]. All rights reserved. This information is not intended as a substitute for professional medical care. Always follow [facility] professional's instructions. 12/08/2021 11:43:39 Scalp Contusion Scalp Contusion A contusion is another word for bruise. It develops when small blood vessels break open and leak blood into the nearby area. A scalp contusion can result from a bump, hit, or fall. Symptoms can include changes in skin color (bruising). For instance, the skin may turn blue or black. Swelling and pain may also occur. The swelling from the contusion should go down in a few days. Bruising and pain may take longer to go away. Home care General care You may use acetaminophen to control pain, unless another pain medicine was prescribed. Don t take aspirin or NSAIDs (nonsteroidal anti-inflammatory drugs) or anticoagulants such as warfarin without talking to your provider first. These medicines increase the risk of bleeding. To help reduce swelling and pain, apply a cold source to the injured area for up to 20 minutes at atime. Do this as often as directed. Use a cold pack or bag of ice wrapped in a thin towel. Never put a cold source directly on your skin. If you have cuts or scrapes around the site of the contusion, be sure to care for them as directed. Note about concussion Because the injury was to your head, it is possible that you could have a concussion (mild brain injury). Symptoms of a concussion can show up later. For this reason, be alert for symptoms of concussion once you re home. Seek emergency medical care if you have any of the symptoms below over the next hours to days: Headache Nausea or vomiting Dizziness Sensitivity to light or noise Unusual sleepiness or grogginess Trouble falling asleep Personality changes Vision changes Memory loss Confusion Trouble walking or clumsiness Loss of consciousness (even for a short time) Inability to be awakened During the time period that you re watching for concussion symptoms: Don t drink alcohol or use sedatives or medicines that make you sleepy. Don t drive or operate machinery. Don t do anything strenuous, such as heavy lifting or straining. Limit tasks that require concentration. This includes reading, watching TV, using a smartphone or computer, and playing video games. Don t return to sports, exercise, or other activity that could result in another injury. Ask your healthcare provider when you can safely resume these activities. Follow-up care Follow up with your healthcare provider, or as directed. If imaging tests were done, they will be reviewed by a doctor. You will be told the results and any new findings that may affect your care. When to seek medical advice Call your healthcare provider right away if any of these occur: Pain that worsens or that can t be relieved with medicines New or increased swelling or bruising Fever of 100.4 F (38 C) or higher, or as directed by your healthcare provider Redness, warmth, or drainage from the injured area Any depression or bony abnormality in the injured area Fluid drainage or bleeding from the nose or ears Call 911 Call 911 right away if any of these occur: Stiff neck Weakness or numbness in any part of the body Seizures [id number] [employer]. [address] [place] [address]. All rights reserved. This information is not intended as a substitute for professional medical care. Always follow yourhealthcare professional's instructions. 12/08/2021 11:43:32 Head Injury (Adult) Head Injury (Adult) You have a head injury. It does not appear serious at this time. But symptoms of a more serious problem, such as a mild brain injury (concussion) or bruising or bleeding in the brain, may appear later. For this reason, you or someone caring for you will need to watch for the symptoms listed below. Once you re home, also be sure to follow any care instructions you re given. Home care Watch for the following symptoms Seek emergency medical care if you have any of these symptoms over the next hours to days: Headache Nausea or vomiting Dizziness Sensitivity to light or noise Unusual sleepiness or grogginess Trouble falling asleep Personality changes Vision changes Memory loss Confusion Trouble walking or clumsiness Loss of consciousness (even for a short time) Inability to be awakened Stiff neck Weakness or numbness in any part of the body Seizures General care If you were prescribed medicines for pain, use them as directed. Note: Don t take other medicines for pain without talking to your provider first. To help reduce swelling and pain, apply a cold source to the injured area for up to 20 minutes at atime. Do this as often as directed. Use a cold pack or bag of ice wrapped in a thin towel. Never apply a cold source directly to the skin. If you have cuts or scrapes as a result of your head injury, care for them as directed. For the next 24 hours (or longer, if instructed): oDon t drink alcohol or use sedatives or other medicines that make you sleepy. oDon t drive or operate machinery. oDon t do anything strenuous, such as heavy lifting or straining. oLimit tasks that require concentration. This includes reading, using a smartphone or computer, watching TV, and playing video games. oDon t return to sports or other activities that could result in another head injury. Follow-up care Follow up with your healthcare provider, or as directed. If imaging tests were done, they will be reviewed by a doctor. You will be told the results and any new findings that may affect your care. When to seek medical advice Call your healthcare provider right away if any of these occur: Pain doesn t get better or worsens New or increased swelling or bruising Fever of 100.4 F (38 C) or higher, or as directed by your provider Increased redness, warmth, drainage, or bleeding from the injured area Fluid drainage or bleeding from the nose or ears Any depression or bony abnormality in the injured area Persistent confusion or lethargy Bruising behind the ears or bruising around the eyes [phone] [employer] [address] [place] [address]. All rights reserved. This information is not intended as a substitute for professional medical care. Always follow yourhealthcare professional's instructions. Follow Up Care 12/08/2021 10:40:55 With:FITZ GA Address: [address] [facility] [place] [address]- Business (1) When:2-4 days Comments:Return to ED if symptoms worsen [facility] 11-19-2021 Evaluation + Plan noteExtracted from: Title:PM H&P Author:DAQUAN MERCADO MD ate:08/27/21 1. Knee pain, left 2. Knee pain, right Orders: PM Return to Office I will proceed with a knee joint steroid injection Details of the procedure as well as potential risks, benefits and alternatives including and not limited to medication management, awaiting natural history, exercise based therapy and surgical intervention were discussed with the patient. Risks of the procedure were also discussed with the patient in details including and not limited to bleeding, infection, nerve injury, worsening pain, paralysis, . The patient seems to understand and agreed to proceed with the plan. I also talked with the patient about the risk of steven COVID-19. Pre/post procedure instructions were provided to the patient and explained in details patient verbalized agreement and understanding. OARRS report was reviewed and assessed and it was appropriate for patient s prescription regimen. I have reviewed the [place] Automated Rx Reporting System (OARRS) report for this patient for refill pattern and other prescriber involvement as part of the appropriate surveillance for the provision of acute and chronic controlled medications. The report was requested, reviewed and was considered appropriate in the prescribing process. Thank you, for allowing me to participate in the care of the patient if you have any questions regarding plan of care please do not hesitate to contact me. This document was created using voice recognition software. Spelling, grammar and syntax errors are possible. Future Appointments Appointment Date:09/16/2021 09:30:00 AM Scheduled Provider: Location:[facility] Appointment Type:PC Nurse Lab Appointment Date:09/23/2021 11:30:00 AM Scheduled Provider: Location:[facility] Appointment Type:CV OV Appointment Date:09/27/2021 01:15:00 PM Scheduled Provider:FITZ GA MD Location:[facility] Appointment Type: OV Future Scheduled Tests Laboratory* Basic Metabolic Panel 02/06/21 * Thyroid Stimulating Hormone 03/31/21 * Free T4 03/31/21 * A1C Hemoglobin 09/30/21 * Complete Blood Count 03/31/21 * Lipid Profile 09/30/21 * Complete Metabolic Panel 09/30/21 Radiology* XR Foot Minimum 3 Views Left 06/16/21 * MA Mammo Screening Bilateral w/ Curt 11/03/20 [facility] 11-19-2021 Hospital Discharge instructions Patient Education 08/27/2021 09:25:42 PM Discharge Instructions, Esha wyman (01/08/21) ([id number]) [facility] Discharge Instructions POST PROCEDURE INSTRUCTIONS ___xx__There are no general limitations to your activities. You may experience some weakness for the next 3-4 hours, in which case you should limit your activity until strength and sensation returns. xx Your pain may increase for the next 24-48 hours, until the injection begins to relieve your pain. xx Rest at home today. xx Do not drive any vehicle, operate any heavy machinery or use any sharp objects for the remainderof the day. xx Be cautious of stairways, since your coordination may be impaired and do not drink alcoholic beverages or make major decisions for 24 hours. xx May resume driving a car in ___6 hours if no sedation was used, in 24 hours if sedation wasused. xx Resume regular activity in 24 hours.. xx Resume your regular diet. Progress diet slowly, starting with water. If no difficulty with swallowing, progress to clear liquids (tea, broth, juliet collin) and then on to solids. xx Resume aspirin products/blood thinners in 24 hours. Start Lovenox injections on date . xx Keep bandaid dry and remove in 24 hours. MEDICATIONS: BEFORE PROCEDURE xx Physician s Pre-procedure Instruction Sheet given to patient. Stop Coumadin/Pradaxa/Eliquis/Xarelto for 5 days before procedure - date . Have ProTime drawn on (Try to have drawn at [facility] to speed results to us). Stop blood thinners Plavix, Pletal for 10 days before procedure date . Stop Aspirin, Persantine, Aggrenox for 7 days before procedure date . Stop Lovenox 24 hours before your appointment time. xx Stop anti-inflammatory medications (Aleve, Advil, Mobic, Naprosyn, etc.) for 5 days before procedure. xx Stop ALL Supplements and Vitamins for 10 days before your procedure. xx Take blood pressure medications the day of your procedure. xx Do not eat ____8 hours before procedure. xx Do not drink 2___ hours before procedure. xx May have clear liquids (water, plain tea/coffee, clear soda) up to 2 hours before procedure. xx Bring someone to drive you home. [facility] Evaluation + Plan note Future Appointments Appointment Date:09/23/2021 11:30:00 AM Scheduled Provider: Location:[facility] Appointment Type:CV OV Appointment Date:09/28/2021 01:15:00 PM Scheduled Provider:FITZ GA MD Location:[facility] Appointment Type:PC OV Appointment Date:10/26/2021 12:25:00 PM Scheduled Provider:DAQUAN MERCADO MD Location:PM Office Appointment Type:PM OV Future Scheduled Tests Laboratory* Basic Metabolic Panel 02/06/21 * Complete Blood Count 03/31/21 Radiology* XR Foot Minimum 3 Views Left 06/16/21 * MA Mammo Screening Bilateral w/ Curt 11/03/20 [facility] Evaluation + Plan note Future Appointments Appointment Date:12/28/2021 10:00:00 AM Scheduled Provider:FITZ GA MD Location:[facility] Appointment Type:PC OV Future Scheduled Tests Laboratory* Basic Metabolic Panel 02/06/21 * Thyroid Stimulating Hormone 12/27/21 * A1C Hemoglobin 12/27/21 * Complete Blood Count 09/28/21 * Complete Blood Count 03/31/21 * Lipid Profile 12/27/21 * Complete Metabolic Panel 12/27/21 Radiology* XR Foot Minimum 3 Views Left 06/16/21 * MA Mammo Screening Bilateral w/ Curt 11/03/20 [facility] Evaluation + Plan note Future Appointments Appointment Date:12/09/2021 09:30:00 AM Scheduled Provider:FITZ GA MD Location:[facility] Appointment Type:PC OV ED Follow Up Appointment Date:12/28/2021 10:00:00 AM Scheduled Provider:FITZ GA MD Location:[facility] Appointment Type:PC Wellness Primetime Enhanced with Labs Appointment Date:01/06/2022 07:50:00 AM Scheduled Provider:DAQUAN MERCADO MD Location:PM Office Appointment Type:PM OV Future Scheduled Tests Laboratory* Basic Metabolic Panel 02/06/21 * Thyroid Stimulating Hormone 12/27/21 * A1C Hemoglobin 12/27/21 * Complete Blood Count 09/28/21 * Complete Blood Count 03/31/21 * Lipid Profile 12/27/21 * Complete Metabolic Panel 12/27/21 Radiology* XR Foot Minimum 3 Views Left 06/16/21 * CT Abdomen and Pelvis w/ contrast 12/08/21 [facility] Evaluation + Plan note Future Appointments Appointment Date:12/28/2021 10:00:00 AM Scheduled Provider:FITZ GA MD Location:[facility] Appointment Type:PC Wellness Primetime Enhanced with Labs Appointment Date:01/06/2022 07:50:00 AM Scheduled Provider:DAQUAN MERCADO MD Location:PM Office Appointment Type:PM OV Future Scheduled Tests Laboratory* Basic Metabolic Panel 02/06/21 * Complete Blood Count 09/28/21 * Complete Blood Count 03/31/21 Radiology* XR Foot Minimum 3 Views Left 06/16/21 * XR Shoulder Minimum 2 Views Left 12/09/21 * XR Wrist Minimum 3 Views Left 12/09/21 * CT Abdomen and Pelvis w/ contrast 12/08/21 [facility] Evaluation + Plan note Future Appointments Appointment Date:03/15/2022 01:30:00 PM Scheduled Provider: Location:[facility] Appointment Type:COVID AMB VACCINE Appointment Date:03/23/2022 09:15:00 AM Scheduled Provider: Location:[facility] Appointment Type:PC Nurse Lab Appointment Date:03/31/2022 11:00:00 AM Scheduled Provider:FITZ GA MD Location:[facility] Appointment Type:PC OV Future Scheduled Tests Laboratory* Thyroid Stimulating Hormone 03/30/22 * A1C Hemoglobin 03/30/22 * Complete Blood Count 09/28/21 * Complete Blood Count 12/28/21 * Complete Blood Count 03/31/21 * Lipid Profile 03/30/22 * Complete Metabolic Panel 03/30/22 Radiology* XR Foot Minimum 3 Views Left 06/16/21 * XR Shoulder Minimum 2 Views Left 12/09/21 * XR Wrist Minimum 3 Views Left 12/09/21 [facility] Evaluation + Plan note Future Appointments Appointment Date:03/29/2022 01:15:00 PM Scheduled Provider: Location:[facility] Appointment Type:CV OV Appointment Date:03/31/2022 11:00:00 AM Scheduled Provider:FITZ GA MD Location:[facility] Appointment Type:PC OV Future Scheduled Tests Laboratory* Complete Blood Count 09/28/21 * Complete Blood Count 03/31/21 Radiology* XR Foot Minimum 3 Views Left 06/16/21 * XR Shoulder Minimum 2 Views Left 12/09/21 * XR Wrist Minimum 3 Views Left 12/09/21 [facility] Evaluation + Plan note Future Appointments Appointment Date:05/06/2022 12:00:00 PM Scheduled Provider:JABIER BLAKE Location:PM Office Appointment Type:PM OV LOU AT Appointment Date:06/29/2022 09:30:00 AM Scheduled Provider: Location:[facility] Appointment Type:PC Nurse Lab Appointment Date:07/01/2022 10:00:00 AM Scheduled Provider:FITZ GA MD Location:[facility] Appointment Type:PC OV Diagnostic Tests Pending * TGT Ab (IGA) 04/21/22 * Gliadin Antibody 04/21/22 Future Scheduled Tests Laboratory* Thyroid Stimulating Hormone 07/01/22 * A1C Hemoglobin 07/01/22 * Complete Blood Count 09/28/21 * Lipid Profile 07/01/22 * Complete Metabolic Panel 07/01/22 Radiology* XR Foot Minimum 3 Views Left 06/16/21 * XR Shoulder Minimum 2 Views Left 12/09/21 * XR Wrist Minimum 3 Views Left 12/09/21 [facility] Evaluation + Plan note Future Appointments Appointment Date:06/24/2022 09:00:00 AM Scheduled Provider:JABIER BLAKECOOK MANAGER Location:PM Office Appointment Type:PM OV LOU SMYTH Appointment Date:06/29/2022 09:30:00 AM Scheduled Provider: Location:[facility] Appointment Type:PC Nurse Lab Appointment Date:07/01/2022 10:00:00 AM Scheduled Provider:FITZ GA MD Location:[facility] Appointment Type:PC OV Future Scheduled Tests Laboratory* Thyroid Stimulating Hormone 07/01/22 * A1C Hemoglobin 07/01/22 * Complete Blood Count 09/28/21 * Lipid Profile 07/01/22 * Complete Metabolic Panel 07/01/22 Radiology* XR Foot Minimum 3 Views Left 06/16/21 * XR Shoulder Minimum 2 Views Left 12/09/21 * XR Wrist Minimum 3 Views Left 12/09/21 [facility] Evaluation + Plan note Future Appointments Appointment Date:06/29/2022 09:30:00 AM Scheduled Provider: Location:[facility] Appointment Type:PC Nurse Lab Appointment Date:07/21/2022 09:30:00 AM Scheduled Provider:FITZ GA MD Location:[facility] Appointment Type:PC OV Appointment Date:08/02/2022 10:30:00 AM Scheduled Provider:DAQUAN MERCADO MD Location:PM Office Appointment Type:PM OV Future Scheduled Tests Laboratory* Thyroid Stimulating Hormone 07/01/22 * A1C Hemoglobin 07/01/22 * Complete Blood Count 09/28/21 * Lipid Profile 07/01/22 * Complete Metabolic Panel 07/01/22 Radiology* XR Foot Minimum 3 Views Left 06/16/21 * XR Shoulder Minimum 2 Views Left 12/09/21 * XR Wrist Minimum 3 Views Left 12/09/21 [facility] Evaluation + Plan note Future Appointments Appointment Date:07/21/2022 09:30:00 AM Scheduled Provider:FITZ GA MD Location:[facility] Appointment Type:PC OV Appointment Date:08/02/2022 10:30:00 AM Scheduled Provider:DAQUAN MERCADO MD Location:PM Office Appointment Type:PM OV Future Scheduled Tests Laboratory* Complete Blood Count 09/28/21 Radiology* XR Shoulder Minimum 2 Views Left 12/09/21 * XR Wrist Minimum 3 Views Left 12/09/21 [facility] Evaluation + Plan note Future Appointments Appointment Date:09/21/2022 09:45:00 AM Scheduled Provider: Location:[facility] Appointment Type:PC Nurse Lab Appointment Date:10/13/2022 11:30:00 AM Scheduled Provider:FITZ GA MD Location:[facility] Appointment Type:PC OV Future Scheduled Tests Laboratory* Thyroid Stimulating Hormone 10/06/22 * A1C Hemoglobin 10/06/22 * Complete Blood Count 07/07/22 * Complete Blood Count 09/28/21 * Lipid Profile 10/06/22 * Complete Metabolic Panel 10/06/22 Radiology* XR Shoulder Minimum 2 Views Left 12/09/21 * XR Wrist Minimum 3 Views Left 12/09/21 [facility] Evaluation + Plan note Future Appointments Appointment Date:10/13/2022 11:30:00 AM Scheduled Provider:FITZ GA MD Location:[facility] Appointment Type:PC OV Future Scheduled Tests Laboratory* Complete Blood Count 07/07/22 Radiology* XR Shoulder Minimum 2 Views Left 12/09/21 * XR Wrist Minimum 3 Views Left 12/09/21 [facility] Evaluation + Plan note Future Appointments Appointment Date:11/30/2022 01:00:00 PM Scheduled Provider: Location:[facility] Appointment Type:CV Procedure - AOH Echo Appointment Date:01/04/2023 09:30:00 AM Scheduled Provider: Location:[facility] Appointment Type:PC Nurse Lab Appointment Date:01/12/2023 11:30:00 AM Scheduled Provider:FITZ GA MD Location:[facility] Appointment Type:PC Wellness Primetime Enhanced Appointment Date:02/01/2023 11:30:00 AM Scheduled Provider:DAQUAN MERCADO MD Location:PM Office Appointment Type:PM OV Appointment Date:02/02/2023 11:45:00 AM Scheduled Provider: Location:[facility] Appointment Type:CV OV Future Scheduled Tests Laboratory* Thyroid Stimulating Hormone 01/11/23 * A1C Hemoglobin 01/11/23 * Complete Blood Count 07/07/22 * Complete Blood Count 10/13/22 * Lipid Profile 01/11/23 * Complete Metabolic Panel 01/11/23 Radiology* XR Shoulder Minimum 2 Views Left 12/09/21 * XR Wrist Minimum 3 Views Left 12/09/21 [facility] Evaluation + Plan note Future Appointments Appointment Date:01/12/2023 11:30:00 AM Scheduled Provider:FITZ GA MD Location:[facility] Appointment Type:PC Wellness Primetime Enhanced Appointment Date:02/01/2023 11:30:00 AM Scheduled Provider:DAQUAN MERCADO MD Location:PM Office Appointment Type:PM OV Appointment Date:02/02/2023 11:45:00 AM Scheduled Provider: Location:[facility] Appointment Type:CV OV Future Scheduled Tests Laboratory* Complete Blood Count 07/07/22 [facility] Evaluation + Plan note Future Appointments Appointment Date:02/02/2023 11:45:00 AM Scheduled Provider: Location:[facility] Appointment Type:CV OV Appointment Date:03/29/2023 09:30:00 AM Scheduled Provider: Location:[facility] Appointment Type:PC Nurse Lab Appointment Date:04/14/2023 10:30:00 AM Scheduled Provider:FITZ GA MD Location:[facility] Appointment Type:PC OV Future Scheduled Tests Laboratory* Thyroid Stimulating Hormone 04/13/23 * A1C Hemoglobin 04/13/23 * Complete Blood Count 07/07/22 * Complete Blood Count 01/12/23 * Lipid Profile 04/13/23 * Complete Metabolic Panel 04/13/23 [facility] Evaluation + Plan note Future Appointments Appointment Date:04/14/2023 10:30:00 AM Scheduled Provider:FITZ GA MD Location:[facility] Appointment Type:PC OV Future Scheduled Tests Laboratory* Complete Blood Count 07/07/22 * Complete Blood Count 01/12/23 [facility] Evaluation + Plan note Future Appointments Appointment Date:07/14/2023 10:45:00 AM Scheduled Provider:FITZ GA MD Location:[facility] Appointment Type:PC OV Appointment Date:08/03/2023 09:10:00 AM Scheduled Provider:DAQUAN MERCADO MD Location:PM Office Appointment Type:PM OV Appointment Date:08/08/2023 10:45:00 AM Scheduled Provider: Location:[facility] Appointment Type:CV OV [facility] Evaluation + Plan note Future Appointments Appointment Date:02/13/2024 11:00:00 AM Scheduled Provider: Location:[facility] Appointment Type:CV OV Appointment Date:04/03/2024 09:00:00 AM Scheduled Provider: Location:[facility] Appointment Type:PC Nurse Lab Appointment Date:04/12/2024 11:00:00 AM Scheduled Provider:FITZ GA MD Location:[facility] Appointment Type:PC OV Future Scheduled Tests Laboratory* Thyroid Stimulating Hormone 04/12/24 * A1C Hemoglobin 04/12/24 * Complete Blood Count 01/12/24 * Lipid Profile 04/12/24 * Complete Metabolic Panel 04/12/24 [facility] Evaluation + Plan note Future Appointments Appointment Date:04/12/2024 11:00:00 AM Scheduled Provider:FITZ GA MD Location:[facility] Appointment Type:PC Wellness Primetime Enhanced Future Scheduled Tests Laboratory* Complete Blood Count 01/12/24 [facility] Evaluation + Plan note Future Appointments Appointment Date:07/19/2024 11:00:00 AM Scheduled Provider:FITZ GA MD Location:[facility] Appointment Type:PC OV Future Scheduled Tests Laboratory* Complete Blood Count 01/12/24 [facility] Evaluation + Plan note Future Appointments Appointment Date:10/13/2023 11:00:00 AM Scheduled Provider:FITZ GA MD Location:[facility] Appointment Type:PC OV Follow Up [facility] Evaluation + Plan note Future Appointments Appointment Date:11/14/2024 02:30:00 PM Scheduled Provider:FITZ GA MD Location:[facility] Appointment Type:PC OV Future Scheduled Tests Laboratory* Complete Blood Count 01/12/24 [facility] Evaluation + Plan note Future Appointments Appointment Date:02/20/2025 03:00:00 PM Scheduled Provider:FITZ GA MD Location:[facility] Appointment Type:PC OV Appointment Date:03/20/2025 10:30:00 AM Scheduled Provider:JESSE NATARAJAN Location:[facility] Appointment Type:CV OV Appointment Date:05/01/2025 11:00:00 AM Scheduled Provider: Location:[facility] Appointment Type:MEDS - Diabetic Individual Visit Future Scheduled Tests Radiology* CT Abdomen and Pelvis w/ contrast 02/12/25 [facility] Evaluation + Plan note Future Appointments Appointment Date:02/20/2025 09:30:00 AM Scheduled Provider:FITZ GA MD Location:[facility] Appointment Type:PC OV Appointment Date:03/20/2025 10:30:00 AM Scheduled Provider:JESSE NATARAJAN Location:[facility] Appointment Type:CV OV Appointment Date:05/01/2025 11:00:00 AM Scheduled Provider: Location:[facility] Appointment Type:MEDS - Diabetic Individual Visit [facility] Evaluation + Plan note Future Appointments Appointment Date:03/06/2025 01:30:00 PM Scheduled Provider:FITZ GA MD Location:[facility] Appointment Type:PC OV Follow Up Appointment Date:03/20/2025 10:30:00 AM Scheduled Provider:JESSE NATARAJAN Location:[facility] Appointment Type:CV OV Appointment Date:05/01/2025 11:00:00 AM Scheduled Provider: Location:[facility] Appointment Type:MEDS - Diabetic Individual Visit [facility] Evrebeccaation + Plan note Future Appointments Appointment Date:03/20/2025 10:30:00 AM Scheduled Provider:JESSE NATARAJAN Location:[facility] Appointment Type:CV OV Appointment Date:05/01/2025 11:00:00 AM Scheduled Provider: Location:[facility] Appointment Type:MEDS - Diabetic Individual Visit Appointment Date:05/26/2025 09:30:00 AM Scheduled Provider: Location:[facility] Appointment Type:PC Nurse Lab Appointment Date:06/05/2025 11:30:00 AM Scheduled Provider:FITZ GA MD Location:[facility] Appointment Type:PC [facility] Evrebeccaation + Plan note Future Appointments Appointment Date:04/18/2025 09:00:00 AM Scheduled Provider: Location:[facility] Appointment Type:Echo - Echocardiogram Adult Appointment Date:05/01/2025 11:00:00 AM Scheduled Provider: Location:[facility] Appointment Type:MEDS - Diabetic Individual Visit Appointment Date:05/26/2025 09:30:00 AM Scheduled Provider: Location:[facility] Appointment Type:PC Nurse Lab Appointment Date:06/05/2025 11:30:00 AM Scheduled Provider:FITZ GA MD Location:[facility] Appointment Type:[facility] Evaluation + Plan note Future Appointments Appointment Date:05/01/2025 11:00:00 AM Scheduled Provider: Location:[facility] Appointment Type:MEDS - Diabetic Individual Visit Appointment Date:05/26/2025 09:30:00 AM Scheduled Provider: Location:[facility] Appointment Type:PC Nurse Lab Appointment Date:06/05/2025 11:30:00 AM Scheduled Provider:FITZ GA MD Location:[facility] Appointment Type:[facility] Evaluation + Plan note Future Appointments Appointment Date:05/26/2025 09:30:00 AM Scheduled Provider: Location:[facility] Appointment Type:PC Nurse Lab Appointment Date:06/03/2025 09:30:00 AM Scheduled Provider:FITZ GA MD Location:[facility] Appointment Type:[facility] Evaluation + Plan note Future Appointments Appointment Date:06/17/2025 11:30:00 AM Scheduled Provider:FITZ GA MD Location:[facility] Appointment Type:PC OV [facility] Evaluation + Plan note Future Appointments Appointment Date:09/01/2025 10:45:00 AM Scheduled Provider:JESSE NATARAJAN Location:[facility] Appointment Type:CV OV [facility] Hospital course Narrative No data available for this section [facility] Hospital Discharge instructions No data available for this section [facility] Note* Noah Swain: PERFORM Event Display: Pain Management Treatment Agreement Authored Date: [id number] [facility] Progress note No data available for this section [facility] Summary Purpose Family History No Family History Records Found No data available for this section No data available for this section No data available for this section No Family History Records Found No data available for this section No data available for this section No data available for this section No data available for this section No data available for this section No data available for this section No data available for this section No Family History Records Found No data available for this section No data available for this section No data available for this section No data available for this section No data available for this section No data available for this section No Family History Records FoundNo Family History Records Found Advance Directives No Advanced Directives Records FoundNo Advanced Directives Records FoundNo Advanced Directives Records FoundNo Advanced Directives Records FoundNo Advanced Directives Records Found Additional Source Comments INFORMATION SOURCE (unrecogn ized section and content) DATE CREATED AUTHOR 11/28/2021 [facility] [place] DATE CREATED AUTHOR AUTHOR'S ORGANIZ ATION 04/08/2024 [facility] ([place] DATE CREATED AUTHOR AUTHOR'S ORGANIZ ATION 03/23/2025 ROBY EDILSON Rodriguez DATE CREATED AUTHOR AUTHOR'S ORGANIZ ATION 08/03/2025 [facility] DATE CREATED AUTHOR AUTHOR'S ORGANIZ ATION 08/13/2025 [facility] Care Team (unrecognized sect ion and content) Personnel Name: FITZ GA MD Address: [address] [place] [address]- [place] Name: Yanira Liz Personnel Name: FITZ GA MD [address] [place] [address]- [place] Name: Yanira Liz Care Team Personnel Name: ANTOLIN DICKENS Position: P4 Advanced Sales And Marketing Coordinator Member Role: Pain Management Address: Address: [address] [facility] [place] [address]- [place] Name: Yanira Liz Position: P3 Scheduling - Quality Worker Advanced Member Role: Other Name: DAQUAN MERCADO MD Position: P4 Physician - General Surgery Member Role: Pain Management Address: Address: [address] [facility] [place] [address]- [place] Name: FITZ GA MD Position: P4 Physician - Primary Care Member Role: Primary Care Physician Address: Address: [address] [place] [address]- [place] Name: Britni Otto Position: Quality Review Member Role: Senior Biostatistician/Group Leader Care Team Related Persons Name: MALVIN MASON Address: [address] [phone] Care Team Personnel Name: ANTOLIN DICKENS Position: P4 Advanced Sales And Marketing Coordinator Member Role: Pain Management Address: Address: [address] [facility] [place] [address]- [place] Name: Yanira Liz Position: P3 Scheduling - Quality Worker Advanced Member Role: Other Name: DAQUAN MERCADO MD Position: P4 Physician - General Surgery Member Role: Pain Management Address: Address: [address] [facility] [place] [address]- [place] Name: FITZ GA MD Position: P4 Physician - Primary Care Member Role: Primary Care Physician Address: Address: [place] [address]- Name: Britni Otto Position: Quality Review Member Role: Senior Biostatistician/Group Leader Care Team Related Persons Name: MALVIN MASON Address: [place] [address] [place], [place] [id number] Care Team Personnel Name: ANTOLIN DICKENS Position: P4 Advanced Sales And Marketing Coordinator Member Role: Pain Management Address: Address: [address] [facility] [address]- Name: Yanira Liz Position: P3 Scheduling - Quality Worker Advanced Member Role: Other Name: DAQUAN MERCADO MD Position: P4 Physician - General Surgery Member Role: Pain Management Address: Address: [address] [facility] [place] [address]- Name: FITZ GA MD Position: P4 Physician - Primary Care Member Role: Primary Care Physician Address: Address: [place], [place] [address] Name: Britni Otto Position: Quality Review Member Role: Senior Biostatistician/Group Leader Care Team Related Persons Name: MALVIN MASON Address: [place] [address] [place], [place] [id number] Care Team Personnel Name: ANTOLIN DICKENS Position: P4 Advanced Sales And Marketing Coordinator Member Role: Pain Management Address: Address: [address] [facility] [place] [address]- Name: Yanira Liz Position: P3 Scheduling - Quality Worker Advanced Member Role: Other Name: DAQUAN MERCADO MD Position: P4 Physician - General Surgery Member Role: Pain Management Address: Address: [address] [facility] [place] [address]- [place] Name: FITZ GA MD Position: P4 Physician - Primary Care Member Role: Primary Care Physician Address: Address: [address] [place] [address]- Name: Britni Otto Position: Quality Review Member Role: Senior Biostatistician/Group Leader Care Team Related Persons Name: KWAKU MASON Care Team Personnel Name: ANTOLIN DICKENS Position: Hospitalist Advanced Practice Nurse Member Role: Pain Management Address: Address: [address] [place] [address] Name: Yanira Liz LPN Position: COOK MORNING Member Role: Other Name: DAQUAN MERCADO MD Position: P4 Physician - General Surgery Member Role: Pain Management Address: Address: [address] [facility] [address] Name: FITZ GA MD Position: P4 Physician - Primary Care Member Role: Primary Care Physician Address: Address: [address] Name: Britni Otto Position: Quality Review Member Role: Senior Biostatistician/Group Leader Care Team Related Persons Name: KWAKU MASON Care Team Personnel Name: ANTOLIN DICKENS Position: Hospitalist Advanced Practice Nurse Member Role: Pain Management Address: Address: [address] [place] [address] Name: Yanira Liz LPN Position: COOK MORNING Member Role: Other Name: DAQUAN MERCADO MD Position: P4 Physician - General Surgery Member Role: Pain Management Address: Address: [address] [facility] [address] Name: FITZ GA MD Position: P4 Physician - Primary Care Member Role: Primary Care Physician Address: Address: [address] Name: Britni Otto Position: Quality Review Member Role: Senior Biostatistician/Group Leader Care Team Related Persons Name: KWAKU MASON Care Team Personnel Name: ANTOLIN DICKENS Position: Hospitalist Advanced Practice Nurse Member Role: Pain Management Address: Address: [address] [place] [address] Name: Yanira Liz LPN Position: COOK MORNING Member Role: Other Name: DAQUAN MERCADO MD Position: P4 Physician - General Surgery Member Role: Pain Management Address: Address: [address] [facility] [place] [phone] [place] Name: FITZ GA MD Position: P4 Physician - Primary Care Member Role: Primary Care Physician Address: Address: [place], [place] [address] Name: Britni Otto Position: Quality Review Member Role: Senior Biostatistician/Group Leader Care Team Related Persons Name: KWAKU MASON Care Team Personnel Name: ANTOLIN DICKENS Position: P4 Advanced Sales And Marketing Coordinator Member Role: Pain Management Address: Address: [address] [facility] [place], [place] [address] Name: Yanira Liz Position: P3 Scheduling - Quality Worker Advanced Member Role: Other Name: DAQUAN MERCADO MD Position: P4 Physician - General Surgery Member Role: Pain Management Address: Address: [address] [facility] [place], [place] [address] Name: FITZ GA MD Position: P4 Physician - Primary Care Member Role: Primary Care Physician Address: Address: [place], [place] [address] Name: Britni Otto Position: Quality Review Member Role: Senior Biostatistician/Group Leader Care Team Related Persons Name: KWAKU MASON Care Team Personnel Name: ANTOLIN DICKENS Position: Hospitalist Advanced Practice Nurse Member Role: Pain Management Address: [address] [place], [place] [phone] [place] Telecom: Name: DAQUAN MERCADO MD Position: P4 Physician - General Surgery Member Role: Pain Management Address: [address] [facility] [place] [address] [place] Telecom: Name: Yanira Chen LPN Position: COOK MORNING Member Role: Other Name: FITZ GA MD Position: P4 Physician - Primary Care Member Role: Primary Care Physician Address: [place], [place] [address] Telecom: Name: Britni Otto Position: Quality Review Member Role: Senior Biostatistician/Group Leader Care Team Related Persons Name: KWAKU MASON Care Team Personnel Name: ANTOLIN DICKENS Position: Hospitalist Advanced Practice Nurse Member Role: Pain Management Address: [address] Telecom: Name: DAQUAN MERCADO MD Member Role: Pain Management Address: [address] [facility] [place] [address] [place] Telecom: Name: Yanira Chen LPN Position: COOK MORNING Member Role: Other Name: FITZ GA MD Position: P4 Physician - Primary Care Member Role: Primary Care Physician Address: [address] Telecom: Name: Britni Otto Position: Quality Review Member Role: Senior Biostatistician/Group Leader Care Team Related Persons Name: KWAKU MASON Care Team Personnel Name: ANTOLIN DICKENS Position: Hospitalist Advanced Practice Nurse Member Role: Pain Management Address: [address] Telecom: Name: DAQUAN MERCADO MD Member Role: Pain Management Address: [address] [facility] [place] [address]- [place] Telecom: Name: Yanira Chen LPN Position: COOK MORNING Member Role: Other Name: FITZ GA MD Position: P4 Physician - Primary Care Member Role: Primary Care Physician Address: [address] Telecom: Name: Britni Otto Position: Quality Review Member Role: Senior Biostatistician/Group Leader Care Team Related Persons Name: KWAKU MASON Care Team Personnel Name: ANTOLIN DICKENS Position: Hospitalist Advanced Practice Nurse Member Role: Pain Management Address: [address] Telecom: Name: DAQUAN MERCADO MD Member Role: Pain Management Address: [address] [facility] [place] [address]- [place] Telecom: Name: Yanira Chen LPN Position: COOK MORNING Member Role: Other Name: FITZ GA MD Position: P4 Physician - Primary Care Member Role: Primary Care Physician Address: [address] Telecom: Name: Britni Otto Position: Quality Review Member Role: Senior Biostatistician/Group Leader Care Team Related Persons Name: KWAKU MASON Care Team Personnel Name: ANTOLIN DICKENS Position: Hospitalist Advanced Practice Nurse Member Role: Pain Management Address: [address] [place] [address] Telecom: Name: DAQUAN MERCADO MD Member Role: Pain Management Address: [address] [facility] [place] [address] Telecom: Name: Yanira Chen LPN Position: COOK MORNING Member Role: Other Name: FITZ GA MD Position: P4 Physician - Primary Care Member Role: Primary Care Physician Address: [address] Telecom: Name: Britni Otto Position: Quality Review Member Role: Senior Biostatistician/Group Leader Care Team Related Persons Name: KWAKU MASON Care Team Personnel Name: ANTOLIN DICKENS APRN-AWS SOFTWARE DEVELOPMENT ENGINEER Position: Hospitalist Advanced Practice Nurse Member Role: Pain Management Address: [address] [place] [phone] [place] Telecom: Name: DAQUAN MERCADO MD Member Role: Pain Management Address: [address] [facility] [place] [address]- [place] Telecom: Name: Yanira Chen LPN Position: COOK MORNING Member Role: Other Name: FITZ GA MD Position: P4 Physician - Primary Care Member Role: Primary Care Physician Address: [address] Telecom: Name: Britni Otto Position: Quality Review Member Role: Senior Biostatistician/Group Leader Care Team Related Persons Name: KWAKU MASON Care Team Personnel Name: ANTOLIN DICKENS Position: Hospitalist Advanced Practice Nurse Member Role: Pain Management Address: [address] [place] Telecom: Name: DAQUAN MERCADO MD Member Role: Pain Management Address: [address] [facility] [address] [place] Telecom: Name: Yanira Chen LPN Position: COOK MORNING Member Role: Other Name: FITZ GA MD Position: P4 Physician - Primary Care Member Role: Primary Care Physician Address: [address] Telecom: Name: Britni Otto Position: Quality Review Member Role: Senior Biostatistician/Group Leader Care Team Related Persons Name: KWAKU MASON Care Team Personnel Name: ANTOLIN DICKENS Position: Hospitalist Advanced Practice Nurse Member Role: Pain Management Address: [address] [place] [address]- [place] Telecom: Name: DAQUAN MERCADO MD Member Role: Pain Management Address: [address] [facility] [place] [address]- [place] Telecom: Name: Yanira Chen LPN Position: COOK MORNING Member Role: Other Name: FITZ GA MD Position: P4 Physician - Primary Care Member Role: Primary Care Physician Address: [address] [place] [address]- Telecom: Name: Britni Otto Position: Quality Review Member Role: Senior Biostatistician/Group Leader Care Team Related Persons Name: KWAKU MASON Care Team Personnel Name: ANTOLIN DICKENS Position: Hospitalist Advanced Practice Nurse Member Role: Pain Management Address: [address] [place] [id number] Telecom: Name: DAQUAN MERCADO MD Member Role: Pain Management Address: [address] [facility] [place], [place] [address] Telecom: Name: Yanira Chen LPN Position: COOK MORNING Member Role: Other Name: FITZ GA MD Position: P4 Physician - Primary Care Member Role: Primary Care Physician Address: [address] Telecom: Name: Britni Otto Position: Quality Review Member Role: Senior Biostatistician/Group Leader Care Team Related Persons Name: KWAKU MASON Care Team Personnel Name: ANTOLIN DICKENS Position: Hospitalist Advanced Practice Nurse Member Role: Pain Management Address: [address] Telecom: Name: DAQUAN MERCADO MD Member Role: Pain Management Address: [address] [facility] [place], [place] [address] Telecom: Name: Yanira Chen LPN Position: COOK MORNING Member Role: Other Name: FITZ GA MD Position: P4 Physician - Primary Care Member Role: Primary Care Physician [facility] [address] Telecom: Name: Britni Otto Position: Quality Review Member Role: Senior Biostatistician/Group Leader Care Team Related Persons Name: KWAKU MASON Care Team Personnel Name: ANTOLIN DICKENS Position: Hospitalist Advanced Practice Nurse Member Role: Pain Management Address: [address] [facility] [place] [address]- [place] Telecom: Name: DAQUAN MERCADO MD Member Role: Pain Management Address: [address] [facility] [place] [address]- [place] Telecom: Name: Yanira Chen COOK MORNING Position: COOK MORNING Member Role: Other Name: FITZ GA MD Position: P4 Physician - Primary Care Member Role: Primary Care Physician Address: [address] [facility] [place] [address]- [place] Telecom: Name: Britni Otto Position: Quality Review Member Role: Senior Biostatistician/Group Leader Care Team Related Persons Name: KWAKU MASON Care Team (unrecognized sect ion and content) Care Team Personnel Name: ANTOLIN DICKENS Position: P4 Advanced Practice Nurse Med Service: Active Provider Member Role: Pain Management Address: Address: [address] [facility] [place] [address]- [place] Name: Yanira Liz Position: P3 Scheduling - Quality Worker Advanced Member Role: Other Name: DAQUAN MERCADO MD Position: P4 Physician - General Surgery Med Service: Active Provider Member Role: Pain Management Address: Address: [address] [facility] [place] [address]- [place] Name: FITZ GA MD Position: P4 Physician - Primary Care Med Service: Active Provider Member Role: Primary Care Physician Address: Address: [address] [facility] [place] [address]- [place] Name: Britni Otto Position: Quality Review Member Role: Senior Biostatistician/Group Leader Name: BUNNY Chilel Position: AO RN Member Role: Senior Biostatistician/Group Leader Care Team Related Persons Name: MALVIN MASON Address: [place] [id number] [place] [phone] Care Team Personnel Name: ANTOLIN DICKENS Position: P4 Advanced Practice Nurse Med Service: Active Provider Member Role: Pain Management Address: Address: [address] [facility] [place] [address]- [place] Name: Yanira Liz Position: P3 Scheduling - Quality Worker Advanced Member Role: Other Name: DAQUAN MERCADO MD Position: P4 Physician - General Surgery Med Service: Active Provider Member Role: Pain Management Address: Address: [address] [facility] [place] [address]- [place] Name: FITZ GA MD Position: P4 Physician - Primary Care Med Service: Active Provider Member Role: Primary Care Physician Address: Address: [address] [place] [address]- Name: Britni Otto Position: Quality Review Member Role: Senior Biostatistician/Group Leader Name: BUNNY Chilel Position: P3 paper slitter Member Role: Senior Biostatistician/Group Leader Care Team Related Persons Name: MALVIN MASON Address: [place] [phone] Care Team Personnel Name: ANTOLIN DICKENS Position: P4 Advanced Practice Nurse Address: Address: [address] [facility] [place] [address]- [place] Name: Yanira Liz Position: P3 Scheduling - Quality Worker Advanced Member Role: Other Name: DAQUAN MERCADO MD Position: P4 Physician - General Surgery Address: Address: [address] [facility] [place] [address]- [place] Name: FITZ GA MD Position: P4 Physician - Primary Care Member Role: Primary Care Physician Address: Address: [address] [place] [address]- Name: Britni Otto Position: Quality Review Member Role: Senior Biostatistician/Group Leader Name: BUNNY Chilel Position: AO RN Member Role: Senior Biostatistician/Group Leader Care Team Related Persons Name: MALVIN MASON Address: [id number] [place], [place] [id number] Care Team Personnel Name: ANTOLIN DICKENS Position: P4 Advanced Practice Nurse Address: Address: [address] [facility] [place] [address]- [place] Name: Yanira Liz Position: P3 Scheduling - Quality Worker Advanced Member Role: Other Name: DAQUAN MERCADO MD Position: P4 Physician - General Surgery Address: Address: [address] [facility] [place] [address]- [place] Name: FITZ GA MD Position: P4 Physician - Primary Care Member Role: Primary Care Physician Address: Address: [place] [address]- Name: Britni Otto Position: Quality Review Member Role: Senior Biostatistician/Group Leader Name: BUNNY Chilel Position: AO RN Member Role: Senior Biostatistician/Group Leader Name: RODRI SY DO Position: ED Physician Member Role: Attending Physician Address: Address: [address] [place], [place] [address] [address]- Care Team Related Persons Name: ISABELLAMALVIN Address: Home [id number] [place] [phone] [place] Care Team Personnel Name: [facility]IN [facility]EN[facility]USTEN [facility] Position: P4 Advanced Practice Nurse Address: Address: [address] [facility] [place] [address]- [place] Name: Yanira Liz Position: P3 Scheduling - Quality Worker Advanced Member Role: Other Name: DAQUAN MERCADO MD Position: P4 Physician - General Surgery Address: Address: [address] [facility] [place] [address]- Name: FITZ GA MD Position: P4 Physician - Primary Care Member Role: Primary Care Physician Address: Address: [place] [address]- Name: Britni Otto Position: Quality Review Member Role: Senior Biostatistician/Group Leader Name: BUNNY Chilel Position: AO RN Member Role: Senior Biostatistician/Group Leader Name: HARSHAD TEIXEIRA MD Position: ED Physician Member Role: ED Physician Address: Address: [address] [place] [address]- Name: BUNNY Turner Position: AO RN Member Role: ED RN Care Team Related Persons Name: MALVIN MASON Address: Home [address] [place], [place] [phone] Care Team Personnel Name: ANTOLIN DICKENS Position: P4 Advanced Practice Nurse Med Service: Active Provider Member Role: Pain Management Address: [facility] [address] [facility] [place] [address]- Name: Yanira Liz Position: P3 Scheduling - Quality Worker Advanced Member Role: Other Name: DAQUAN MERCADO MD Position: P4 Physician - General Surgery Med Service: Active Provider Member Role: Pain Management Address: Address: [address] [facility] [place] [address]- [place] Name: FITZ GA MD Position: P4 Physician - Primary Care Med Service: Active Provider Member Role: Primary Care Physician Address: Address: [address] [place], [place] [address] Name: Britni Otto Position: Quality Review Member Role: Senior Biostatistician/Group Leader Care Team Related Persons Name: ISABELLAMALVIN Address: Home [id number] [place] [phone] Care Team Personnel Name: ANTOLIN DICKENS Position: P4 Advanced Practice Nurse Member Role: Pain Management Address: Address: [address] [facility] [place] [address]- Name: Yanira Liz Position: P3 Scheduling - Quality Worker Advanced Member Role: Other Name: DAQUAN MERCADO MD Position: P4 Physician - General Surgery Member Role: Pain Management Address: Address: [address] [facility] [place] [address]- Name: FITZ GA MD Position: P4 Physician - Primary Care Member Role: Primary Care Physician Address: Address: [address] [place] [address]- Name: Britni Otto Position: Quality Review Member Role: Senior Biostatistician/Group Leader Care Team Related Persons Name: ISABELLAVICTOR MMALVIN Address: Home [address] [place], [place] [phone] Care Team Personnel Name: ANTOLIN DICKENS Position: P4 Advanced Practice Nurse Member Role: Pain Management Address: Address: [address] [facility] [place] [address]- [place] Name: Yanira Liz Position: P3 Scheduling - Quality Worker Advanced Member Role: Other Name: DAQUAN MERCADO MD Position: P4 Physician - General Surgery Member Role: Pain Management Address: Address: [address] [facility] [place] [address]- [place] Name: FITZ GA MD Position: P4 Physician - Primary Care Member Role: Primary Care Physician Address: Address: [address] [place] [address] [place] [address]- [place] Name: Britni Otto Position: Quality Review Member Role: Senior Biostatistician/Group Leader Care Team Related Persons Name: MALVIN MASON Address: Home [address] [place], [place] [phone] [place] Care Team Personnel Name: ANTOLIN DICKENS Position: P4 Advanced Practice Nurse Member Role: Pain Management Address: Address: [address] [facility] [address]- Name: Yanira Liz Position: P3 Scheduling - Quality Worker Advanced Member Role: Other Name: DAQUAN MERCADO MD Position: P4 Physician - General Surgery Member Role: Pain Management Address: Address: [address] [facility] [place] [address]- [place] Name: FITZ GA MD Position: P4 Physician - Primary Care Member Role: Primary Care Physician Address: Address: [address] [place] [address] [place] [address]- Name: Britni Otto Position: Quality Review Member Role: Senior Biostatistician/Group Leader Care Team Related Persons Name: MALVIN MASON Address: Home [address] [place], [place] [phone] [place] Care Team Personnel Name: ANTOLIN DICKENS Position: P4 Advanced Practice Nurse Member Role: Pain Management Address: Address: [address] [facility] [place] [address]- [place] Name: Yanira Liz Position: P3 Scheduling - Quality Worker Advanced Member Role: Other Name: DAQUAN MERCADO MD Position: P4 Physician - General Surgery Member Role: Pain Management Address: Address: [address] [facility] [place], [place] [address] Name: FITZ GA MD Position: P4 Physician - Primary Care Member Role: Primary Care Physician Address: Address: [address] [facility] [address] [place], [place] [address] Name: Britni Otto Position: Quality Review Member Role: Senior Biostatistician/Group Leader Care Team Related Persons Name: MALVIN MASON Address: [address] [phone] FOR RECORDS PERTAINING TO PATIENTS WHO ARE OR HAVE BEEN ENROLLED IN A CHEMICAL DEPENDENCY/SUBSTANCEABUSE PROGRAM, SOME INFORMATION MAY BE OMITTED. This clinical summary was aggregated from multiple sources. Caution should be exercised in using it in the provision of clinical care. This summary normalizes information from multiple sources, and as a consequence, information in this document may materially change the coding, format and clinical context of patient data. In addition, data may be omitted in some cases. CLINICAL DECISIONS SHOULD BE BASED ON THE PRIMARY CLINICAL RECORDS. [facility] [employer] [facility]. provides no warranty or guarantee of the accuracy or completeness of information in this document.
[2025-08-19 08:29] LABS: Hematocrit 37.7 % (37-47); Hemoglobin 11.9 g/dL (12.0-15.0); Mean Corp Hgb Conc 31.6 g/dL (32-36); Mean Corpuscular Volume 99.7 fL (81-99); Mean Platelet Vol. 9.4 fl (6.2-12.0); Platelet Count 192 K/mm3 (150-450); RBC Distribution Width CV 14.6 % (11.6-14.6); RBC Distribution Width SD 53.5 fl (35.1-43.9); Red Blood Count 3.78 M/mm3 (4.2-5.4); White Blood Count 7.2 K/mm3 (4.4-11.0)
== END ==
LOC: OLS.SWAL 05:00
PROVIDERS: Visit Provider Internal Medicine
DX: D64.9 Anemia, unspecified (principal)
CPT/HCPCS: 36415; 85027

== ENCOUNTER → 2025-09-01 05:00 | Outpatient (REF) | payer MEDICARE, SELFPAY ==
--- OUTSIDE RECORDS SUMMARY | 2025-09-01 03:43 | XMS RPT_ITS | CCD ---
Author Organization [place] [employer] [facility] [employer] [facility] [facility] Care Team Providers Care Sourcing Consultant Name Role Phone FITZ GA MD Primary [...] Unavailable Farnaz Tierney Attending Unavailable Farnaz Tierney Attending Unavailable Farnaz Tierney Attending Unavailable Farnaz Tierney Referring Unavailable Allergies Allergy Classification Reported Allergen(s) Allergy Type Date of Onset Reaction(s) Facility (20 sources) Codeine; Translations: [codeine] Drug Allergy N/V [facility] (20 sources) Penicillin; Translations: [penicillin] Drug Allergy RASH [facility] (20 sources) predniSONE; Translations: [prednisone] Drug Allergy Nausea (finding) [facility] (20 sources) Tetracycline; Translations: [tetracycline] Drug Allergy Unknown [facility] (20 sources) egg albumin (whites) Allergy to substance Unknown [facility] Medications Current Medications Medication [...] BID, # 180 tab(s), 3 Refill(s), Pharmacy: [facility], 157.5, cm, 03/20/25 10:23:00 EDT, Height, 68.4, kg, 03/20/25 10:23:00 EDT, Dosing Weight Start Date: 04/29/25 Stop Date: 04/24/26 Status: Ordered Medication Dispense Status: Completed Quantity: 180.0 Unit: tab(s) Total Allowed Fills: 4 Fills Dispensed: 0 Start: 10-13-2022 End: 04-07-2025 Eliquis 5 mg oral tablet Dos e : 5 mg = 1 tab(s), Oral, BID, # 180 tab(s), 3 Refill(s), Pharmacy: [facility], 157, cm, 04/12/24 11:01:00 EDT, Height, [...] qDay, # 90 tab(s), 3 Refill(s), Pharmacy: [facility], 157, cm, 03/06/25 13:18:00 EDT, Height, kg, 03/06/25 13:18:00 EDT, Dosing Weight Start Date: 03/18/25 Stop Date: 03/13/26 Status: Ordered Medication Dispense Status: Completed Quantity: 90.0 Unit: tab(s) Total Allowed Fills: 4 Fills Dispensed: 0 Start: 07-14-2023 End: 01-06-2025 atorvastatin 10 mg oral tabl et Dose : 10 mg = 1 tab(s), Oral, qDay, # 90 tab(s), 3 Refill(s), Pharmacy: [facility], 160, cm, 01/12/24 10:53:00 EDT, Height, kg, 01/12/24 10:53:00 EDT, Dosing Weight Start Date: 01/12/24 Stop Date: 01/06/25 Status: Ordered Quantity: 90.0 Unit: tab(s) Repeat number: 4 Start: 09-28-2021 End: 07-02-2023 atorvastatin 10 mg oral tabl et Dose : 10 mg = 1 tab(s), Oral, qDay, # 90 tab(s), 3 Refill(s), [id number], 157, cm, 07/07/22 9:44:00 EDT, Height, kg, 07/07/22 9:44:00 EDT, Dosing Weight Start Date: 07/07/22 Stop Date: 07/02/23 Status: Ordered Start: 08-30-2021 atorvastatin 1 0 mg oral tablet Dose : 10 mg = 1 tab(s), Oral, qDay, # 30 tab(s), 0 Refill(s), [facility]acy: [facility] [address] 162, cm, 08/27/21 9:15:00 EST, Height, kg, 08/27/21 9:15:00 EST, Dosing Weight Start Date: 08/30/21 Status: Ordered Start: 08-04-2020 atorvastatin 1 0 mg oral tablet Dose : 10 mg = 1 tab(s), Oral, qDay, # 90 tab(s), 3 Refill(s), [facility] 158, cm, 08/04/20 10:48:00 EDT, Height, kg, 08/04/20 10:48:00 EDT, Dosing Weight Start Date: 08/04/20 Status: Ordered cephalexin 500 mg oral capsule (1 source) Cephalosporin Antibacterial Start: 11-24-2022 End: 12-01-2022 cephalexin 500 mg oral capsule Dose : 500 mg = 1 cap(s), Oral, TID, X 7 day(s), # 21 cap(s), 0 Refill(s), 12/01/22 11:50:00 EST, [facility]acy: [id number], Contusion of face Knee contusion, 160, cm, 11/24/22 11:24:00 EST, Height, 76.5 Start Date: 11/24/22 Stop Date: 12/01/22 Status: Ordered cholestyramine resin 4000 mg powder for oral suspension (2 sources) Bile Acid Sequestrant Start: 11-30-2021 cholesty ramine 4 g/9 g oral powder for reconstitution 1 packet(s), Oral, BID, # 60 packet(s), 11 Refill(s), [facility] [address] Sinusitis Diarrhea, 159, cm, 11/30/21 11:16:00 EST, Height, kg, 11/30/21 11:16:00 EST, Dosing Weight Start Date: 11/30/21 Status: Ordered citalopram 40 mg oral tablet (20 sources) Serotonin Reuptake Inhibitor Start: 04-12-2024 citalopram 40 mg ora l tablet Dose : 40 mg = 1 tab(s), Oral, qDay, # 90 tab(s), 3 Refill(s), Pharmacy: [facility], 157, cm, 04/12/24 11:01:00 EDT, Height, kg, 04/12/24 11:01:00 EDT, Dosing Weight Start Date: 04/12/24 Status: Ordered Start: 07-14-2023 citalopram 40 mg oral tablet Dose : 40 mg = 1 tab(s), Oral, qDay, # 90 tab(s), 3 Refill(s), [facility]: [facility] #[id number], 157, cm, 07/14/23 10:36:00 EDT, Height, kg, 07/14/23 10:36:00 EDT, Dosing Weight Start Date: 07/14/23 Status: Ordered Start: 04-14-2023 citalopram 20 mg oral tablet Dose : 20 mg = 1 tab(s), Oral, qDay, # 90 tab(s), 3 Refill(s), [facility]: [facility] #[id number], 160, cm, 04/14/23 10:24:00 EDT, Height, kg, 04/14/23 10:24:00 EDT, Dosing Weight Start Date: 04/14/23 Status: Ordered Start: 07-07-2022 citalopram 20 mg oral tablet Dose : 20 mg = 1 tab(s), Oral, qDay, # 90 tab(s), 3 Refill(s), [facility]: [facility] #[id number], 157, cm, 07/07/22 9:44:00 EDT, Height, kg, [...] qDay, # 30 tab(s), 11 Refill(s), Pharmacy: [facility], 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 (CKD), 157, cm, 04/12/24 11:01:00 EDT, Height, kg, 04/12/24 11:01:00 EDT, Dosing Weight Start Date: 07/09/24 Status: Ordered Start: 07-14-2023 Farxiga 10 mg oral tablet Dose : 10 mg = 1 tab(s), Oral, qDay, # 30 tab(s), 11 Refill(s), [facility]: [facility] #[id number], Type 2 diabetes mellitus with chronic kidney [...] qDay, # 90 tab(s), 3 Refill(s), Pharmacy: [facility], Diabetes Diastolic dysfunction, 157, cm, [...] qDay, # 90 tab(s), 3 Refill(s), Pharmacy: [facility], Diabetes Diastolic dysfunction, 157, cm, 12/05/24 [...] 0 Refill(s), 01/19/24 11:45:00 AM EDT, Pharmacy: [facility], Well adult exam Acquired hypothyroidism, 160, cm, 01/12/24 10:53:00 EDT, Height, 71.7, kg, 01/12/24 10:53:00 EDT, Dosing Weight Start Date: 01/12/24 Stop Date: 01/19/24 Status: Ordered furosemide 20 mg oral tablet (20 sources) Loop Diuretic Start: 12-05-2024 furosemide 20 mg oral tablet Dose : 20 mg = 1 tab(s), Oral, qDay, # 90 tab(s), 3 Refill(s), Pharmacy: [facility], 157, cm, 12/05/24 14:45:00 EST, Height, kg, 12/05/24 14:45:00 EST, Dosing Weight Start Date: 12/05/24 Status: Ordered Medication Dispense Status: Completed Quantity: 90.0 Unit: tab(s) Total Allowed Fills: 4 Fills Dispensed: 0 Start: 04-12-2024 End: 07-11-2024 furosemide 40 mg oral tablet Dose : 20 mg = 0.5 tab(s), Oral, Daily, # 15 tab(s), 2 Refill(s), Pharmacy: [facility], Hyperlipidemia Acquired hypothyroidism, 157, cm, 04/12/24 11:01:00 EDT, Height, kg, 04/12/24 11:01:00 EDT, Dosing Weight Start Date: 04/12/24 Stop Date: 07/11/24 Status: Ordered Start: 03-03-2023 Lasix 20 mg or al tablet Dose : 20 mg = 1 tab(s), Oral, Daily, # 90 tab(s), 1 Refill(s), [facility]: [facility] #[id number], 160, cm, 02/02/23 11:34:00 EDT, Height, kg, 02/02/23 11:34:00 EDT, Dosing Weight Start Date: 03/03/23 Status: Ordered Start: 09-28-2021 Lasix 20 mg or al tablet Dose : 20 mg = 1 tab(s), Oral, Daily, # 90 tab(s), 0 Refill(s), [facility]: [facility] #[id number], 160, cm, 11/24/22 11:24:00 EST, Height, kg, [...] TID, # 270 cap(s), 3 Refill(s), Pharmacy: [facility], Lumbar spinal stenosis, 157, cm, 04/12/24 11:01:00 EDT, Height, 72.3, kg, 04/12/24 11:01:00 EDT, Dosing Weight Start Date: 04/12/24 Stop Date: 04/07/25 Status: Ordered Start: 01-12-2024 End: 07-10-2024 gabapentin 600 mg oral table t Dose : 600 mg = 1 tab(s), Oral, TID, # 270 tab(s), 1 Refill(s), Pharmacy: [facility], Neuropathy, 160, cm, 01/12/24 10:53:00 EDT, Height, 71.7, kg, 01/12/24 10:53:00 EDT, Dosing Weight Start Date: 01/12/24 Stop Date: 07/10/24 Status: Ordered Start: 02-01-2023 End: 01-10-2024 gabapentin 600 mg oral table t Dose : 600 mg = 1 tab(s), Oral, TID, # 270 tab(s), 1 Refill(s), [facility]: [facility] #[id number], Neuropathy, 157, cm, 07/14/23 10:36:00 EDT, Height, 75.6, kg, 07/14/23 10:36:00 EDT, Dosing Weight Start Date: 07/14/23 Stop Date: 01/10/24 Status: Ordered Start: 06-03-2022 End: 01-29-2023 gabapentin 600 mg oral table t Dose : 600 mg = 1 tab(s), Oral, TID, # 270 tab(s), 1 Refill(s), [facility]: [facility] #[id number], Neuropathy, 160, cm, 08/02/22 10:34:00 EDT, Height, [...] bedtime, # 120 tab(s), 2 Refill(s), Pharmacy: [address], Lumbar spinal stenosis, 162.6, cm, 03/03/22 [...] bedtime, # 120 tab(s), 2 Refill(s), Pharmacy: [address], Lumbar spinal stenosis, 157.5, cm, 10/26/21 12:29:00 EST, Height, 76.8, kg, 10/26/21 12:29:00 EST, Dosi... Start Date: 10/26/21 Status: Ordered glimepiride 4 mg oral tablet (20 sources) Sulfonylurea Start: 03-18-2025 glimepiride 4 mg oral tablet Dose : 4 mg = 1 tab(s), Oral, qDay, # 30 tab(s), 2 Refill(s), Pharmacy: [facility], 157, cm, 03/06/25 13:18:00 EDT, Height, kg, 03/06/25 13:18:00 EDT, Dosing Weight Start Date: 03/18/25 Status: Ordered Medication Dispense Status: Completed Quantity: 30.0 Unit: tab(s) Total Allowed Fills: 3 Fills Dispensed: 0 Start: 01-09-2025 glimepiride 4 mg oral tablet Dose : 4 mg = 1 tab(s), Oral, qDay, # 30 tab(s), 2 Refill(s), Pharmacy: [facility], 157, cm, 12/05/24 14:45:00 EST, Height, kg, 01/02/25 14:37:00 EDT, Dosing Weight Start Date: 01/09/25 Status: Ordered Quantity: 30.0 Unit: tab(s) Repeat number: 3 Start: 06-14-2023 glimepiride 1 mg oral tablet Dose : 1 mg = 1 tab(s), Oral, qDay, # 90 tab(s), 3 Refill(s), [facility]: [facility] #[id number], 157, cm, 06/07/23 14:25:00 EDT, Height, kg, 06/07/23 14:25:00 EDT, Dosing Weight Start Date: 06/14/23 Status: Ordered Start: 03-31-2022 glimepiride 1 mg oral tablet Dose : 1 mg = 1 tab(s), Oral, qDay, # 90 tab(s), 3 Refill(s), [facility]: [facility] 158, cm, 03/31/22 11:03:00 EDT, Height Start Date: 03/31/22 Status: Ordered Start: 02-17-2022 glimepiride 2 mg oral tablet Dose : 2 mg = 1 tab(s), Oral, qDay, # 90 tab(s), 3 Refill(s), [facility]: [facility] 158.5, cm, 02/17/22 8:57:00 EDT, Height, kg, 02/17/22 8:57:00 EDT, Dosing Weight Start Date: 02/17/22 Status: Ordered Start: 09-28-2021 glimepiride 2 mg oral tablet Dose : 2 mg = 1 tab(s), Oral, qDay, # 90 tab(s), 3 Refill(s), [facility]: [facility] 158.5, cm, 09/28/21 [...] qDayAC, # 90 tab(s), 3 Refill(s), Pharmacy: [facility], 157, cm, 03/06/25 13:18:00 EDT, Height, kg, 03/06/25 13:18:00 EDT, Dosing Weight Start Date: 03/06/25 Status: Ordered Medication Dispense Status: Completed Quantity: 90.0 Unit: tab(s) Total Allowed Fills: 4 Fills Dispensed: 0 Start: 10-13-2023 levothyroxine 25 mcg (0.025 mg) oral tablet Dose : 25 mcg = 1 tab(s), Oral, qDayAC, # 90 tab(s), 3 Refill(s), Pharmacy: [facility], 160, cm, 10/13/23 10:47:00 EST, Height, kg, 10/13/23 10:47:00 EST, Dosing Weight Start Date: 10/13/23 Status: Ordered Start: 07-14-2023 levothyroxine 50 mcg (0.05 mg) oral tablet Dose : 50 mcg = 1 tab(s), Oral, qDay, # 90 tab(s), 3 Refill(s), [facility]: [facility] #[id number], 157, cm, 07/14/23 10:36:00 EDT, Height, kg, 07/14/23 10:36:00 EDT, Dosing Weight Start Date: 07/14/23 Status: Ordered Start: 07-07-2023 levothyroxine 50 mcg (0.05 mg) oral tablet Dose : 50 mcg = 1 tab(s), Oral, qDay, # 90 tab(s), 3 Refill(s), [id number], 160, cm, 04/14/23 10:24:00 EDT, Height, kg, 04/14/23 10:24:00 EDT, Dosing Weight Start Date: 04/14/23 Status: Ordered Start: 07-07-2022 levothyroxine 50 mcg (0.05 mg) oral tablet Dose : 50 mcg = 1 tab(s), Oral, qDay, # 90 tab(s), 3 Refill(s), [id number], 157, cm, 07/07/22 9:44:00 EDT, Height, kg, [...] qHS, # 30 tab(s), 2 Refill(s), Pharmacy: [facility], [facility], 157.5, cm, 05/09/25 10:33:00 EDT, Height, 67, [...] 0 Refill(s), 03/02/25 3:21:00 PM EDT, Pharmacy: [facility], Major depressive disorder, 157, cm, 12/05/24 [...] BID, # 60 tab(s), 8 Refill(s), Pharmacy: [facility], 157.5, cm, 05/09/25 10:33:00 EDT, Height, [...] release), # 180 tab(s), 1 Refill(s), Pharmacy: [facility], 157.5, cm, 03/20/25 10:23:00 EDT, [...] qDay, # 90 tab(s), 3 Refill(s), Pharmacy: [facility], 157, cm, 12/05/24 14:45:00 EST, [...] 90 tab(s), 3 Refill(s), [facility]: [facility] #[id number], 157, cm, 07/07/22 9:44:00 EDT, Height, kg, [...] qDay, # 30 tab(s), 11 Refill(s), Pharmacy: [facility], 157.5, cm, 06/17/25 11:12:00 EDT, Height, kg, [...] 90 tab(s), 1 Refill(s), [facility]: [facility] #[id number], 160, cm, 02/02/23 11:34:00 EDT, Height, kg, 02/02/23 11:34:00 EDT, Dosing Weight Start Date: 03/03/23 Status: Ordered Start: 09-28-2021 potassium chlo ride 8 mEq (600 mg) oral tablet, extended release Dose : 8 mEq = 1 tab(s), Oral, qDay, take with food., # 90 tab(s), 0 Refill(s), [facility]: [facility] #[id number], 160, cm, 11/24/22 11:24:00 EST, Height, kg, [...] # 180 tab(s), 3 Refill(s), [facility]: [facility] #[id number], 160, cm, 04/14/23 10:24:00 EDT, Height, kg, 04/14/23 10:24:00 EDT, Dosing Weight Start Date: 04/14/23 Status: Ordered Start: 07-07-2022 sotalol 80 mg oral tablet Dose : 80 mg = 1 tab(s), Oral, BID, # 180 tab(s), 3 Refill(s), [facility]: [facility] #[id number], 157, cm, 07/07/22 9:44:00 EDT, Height, kg, 07/07/22 9:44:00 EDT, Dosing Weight Start Date: 07/07/22 Status: Ordered Start: 06-16-2021 End: 02-12-2022 sotalol 80 mg oral tablet Do se : 80 mg = 1 tab(s), Oral, BID, # 180 tab(s), 3 Refill(s), [facility]: [facility] [...] day(s), # 28 tab(s), 0 Refill(s), Pharmacy: [facility], 157, cm, 02/20/25 9:22:00 EDT, [...] qHS, # 30 tab(s), 1 Refill(s), Pharmacy: [facility], 157.5, cm, 03/20/25 10:23:00 EDT, Height, kg, 03/20/25 10:23:00 EDT, Dosing Weight Start Date: 04/22/25 Stop Date: 06/21/25 Status: Ordered Medication Dispense Status: Completed Quantity: 30.0 Unit: tab(s) Total Allowed Fills: 2 Fills Dispensed: 0 Start: 02-20-2025 End: 04-21-2025 cyclobenzaprine 10 mg oral t ablet Dose : 10 mg = 1 tab(s), Oral, qHS, # 30 tab(s), 1 Refill(s), Pharmacy: [facility], 157, cm, 02/20/25 9:22:00 EDT, Height, kg, 02/20/25 9:22:00 EDT, Dosing Weight Start Date: 02/20/25 Stop Date: 04/21/25 Status: Ordered Quantity: 30.0 Unit: tab(s) Repeat number: 2 Start: 12-05-2024 End: 06-03-2025 cyclobenzaprine 5 mg oral ta blet Dose : 5 mg = 1 tab(s), Oral, qHS, # 90 tab(s), 1 Refill(s), Pharmacy: [facility], Diabetes Diastolic dysfunction, 157, cm, [...] spasm, # 90 tab(s), 1 Refill(s), Pharmacy: [facility], 157, cm, 04/12/24 11:01:00 EDT, Height, kg, 04/12/24 11:01:00 EDT, Dosing Weight Start Date: 04/12/24 Stop Date: 06/11/24 Status: Ordered Start: 01-02-2024 End: 03-12-2024 cyclobenzaprine 10 mg oral t ablet Dose : 10 mg = 1 tab(s), Oral, TID, PRN for muscle spasm, # 90 tab(s), 1 Refill(s), Pharmacy: [facility], 160, cm, 01/12/24 10:53:00 EDT, Height, kg, 01/12/24 10:53:00 EDT, Dosing Weight Start Date: 01/12/24 Stop Date: 03/12/24 Status: Ordered Start: 07-14-2023 End: 09-12-2023 cyclobenzaprine 10 mg oral t ablet Dose : 10 mg = 1 tab(s), Oral, TID, PRN for muscle spasm, # 90 tab(s), 1 Refill(s), [facility]: [facility][id number], 157, cm, 07/14/23 10:36:00 EDT, Height, kg, 07/14/23 10:36:00 EDT, Dosing Weight Start Date: 07/14/23 Stop Date: 09/12/23 Status: Ordered Start: 04-14-2023 End: 06-13-2023 cyclobenzaprine 10 mg oral t ablet Dose : 10 mg = 1 tab(s), Oral, TID, PRN for muscle spasm, # 90 tab(s), 1 Refill(s), [facility]: [facility] #[id number], 160, cm, 04/14/23 10:24:00 EDT, Height, kg, 04/14/23 10:24:00 EDT, Dosing Weight Start Date: 04/14/23 Stop Date: 06/13/23 Status: Ordered Start: 10-13-2022 End: 12-12-2022 cyclobenzaprine 10 mg oral t ablet Dose : 10 mg = 1 tab(s), Oral, TID, PRN for muscle spasm, # 90 tab(s), 1 Refill(s), [facility]: [facility] #[id number], 160, cm, 10/13/22 10:58:00 EST, Height, kg, 10/13/22 10:58:00 EST, Dosing Weight Start Date: 10/13/22 Stop Date: 12/12/22 Status: Ordered Start: 07-07-2022 End: 09-05-2022 cyclobenzaprine 10 mg oral t ablet Dose : 10 mg = 1 tab(s), Oral, TID, PRN for muscle spasm, # 90 tab(s), 1 Refill(s), [facility]: [facility] #[id number], 157, cm, 07/07/22 9:44:00 EDT, Height, kg, 07/07/22 9:44:00 EDT, Dosing Weight Start Date: 07/07/22 Stop Date: 09/05/22 Status: Ordered Start: 03-31-2022 End: 05-30-2022 cyclobenzaprine 10 mg oral t ablet Dose : 10 mg = 1 tab(s), Oral, TID, PRN for muscle spasm, # 90 tab(s), 1 Refill(s), Pharmacy: [facility] [address] 158, cm, 03/31/22 11:03:00 EDT, Height Start Date: 03/31/22 Stop Date: 05/30/22 Status: Ordered Start: 02-17-2022 End: 04-18-2022 cyclobenzaprine 5 mg oral ta blet Dose : 5 mg = 1 tab(s), Oral, TID, # 90 tab(s), 1 Refill(s), Pharmacy: [facility] Chronic diarrhea Low back pain, 158.5, cm, 02/17/22 8:57:00 EDT, Height Start Date: 02/17/22 Stop Date: 04/18/22 Status: Ordered Start: 08-10-2021 End: 11-26-2021 cyclobenzaprine 10 mg oral t ablet Dose : 10 mg = 1 tab(s), Oral, qHS, PRN Muscle pain, # 30 tab(s), 1 Refill(s), 11/26/21 15:30:00 EST, Pharmacy: [facility] 162.6, cm, 07/14/21 9:02:00 [...] Test Name Value Interpretation Reference Range Facility CBC-Complete Blood Cnt No Di ffon 08-19-2025 Erythrocyte distribution width (RBC) [Ratio] 14.6 % Normal 11.6-14.6 Comment on above: Order Comment: 162 Performed By: #### L 100.0500 #### Laboratory [address] [place], [address] Hematocrit (Bld) [Volume fraction] 37.7 % Normal 37-47 Comment on above: Order Comment: 162 Performed By: #### L 100.0500 #### Laboratory [address] [place], [address] Hemoglobin (Bld) [Mass/Vol] 11.9 g/dL Low 12.0-15.0 Comment on above: Order Comment: 162 Performed By: #### L 100.0500 #### [facility] [address] [place], [address] MCH (RBC) [Entitic mass] 31.5 pg Normal 27.0-32.0 Comment on above: Order Comment: 162 Performed By: #### L 100.0500 #### Laboratory [address] [place], [address] MCHC (RBC) [Mass/Vol] 31.6 g/dL Low 32-36 [facility] Comment on above: Order Comment: 162 Performed By: #### L 100.0500 #### Laboratory [address] [place], [address] MCV (RBC) [Entitic vol] 99.7 fL High 81-99 Comment on above: Order Comment: 162 Performed By: #### L 100.0500 #### [facility] [address] [place], [address] Platelet mean volume (Bld) [Entitic vol] 9.4 fL Normal 6.2-12.0 Comment on above: Order Comment: 162 Performed By: #### L 100.0500 #### Laboratory [address] [place], [address] Platelets (Bld) [#/Vol] 192 10*3/uL Normal 150-450 Comment on above: Order Comment: 162 Performed By: #### L 100.0500 #### [facility] [address] [place], [address] RBC (Bld) [#/Vol] 3.78 10*6/uL Low 4.2-5.4 [facility] Comment on above: Order Comment: 162 Performed By: #### L 100.0500 #### Laboratory [address] [place], [address] RDW SD 53.5 fl High 35.1-43.9 Comment on above: Order Comment: 162 Performed By: #### L 100.0500 #### Laboratory [address] [place], [address] WBC (Bld) [#/Vol] 7.2 10*3/uL Normal 4.4-11.0 [facility] Comment on above: Order Comment: 162 Performed By: #### L 100.0500 #### Laboratory [address] [place], [address] CRPon 08-12-2025 C-REACTIVE PROT 3.90 mg/L High 0.0-3.0 Comment on above: Order Comment: DENG Mcelroy ADD CRP TO 08-11-25 BLOOD WORK Performed By: #### L 500.2500, L501.6710, L100.0100, L501.1400 #### Laboratory [address] [place], [address] Basic Metabolic Profile (BMP )on 08-11-2025 BUN/CRE 22.6 RATIO High 10-20 Comment on above: Performed By: #### L 500.2500, L501.6710, L100.0100, L501.1400 #### Laboratory [address] [place], [address] Calcium [Mass/Vol] 9.3 mg/dL Normal 7.6-11.0 [facility] Comment on above: Performed By: #### L 500.2500, L501.6710, L100.0100, L501.1400 #### Laboratory [address] [place], [address] Chloride [Moles/Vol] 107 mmol/L Normal 98-108 [facility] Comment on above: Performed By: #### L 500.2500, L501.6710, L100.0100, L501.1400 #### Laboratory [address] [place], [address] CO2 [Moles/Vol] 25.6 mmol/L Normal 21.0-32.0 Comment on above: Performed By: #### L 500.2500, L501.6710, L100.0100, L501.1400 #### [facility] [address] [place], [address] Creatinine [Mass/Vol] 0.99 mg/dL Normal 0.70-1.20 [facility] Comment on above: Performed By: #### L 500.2500, L501.6710, L100.0100, L501.1400 #### [facility] [address] [place], [address] GAP 10 Normal 5-15 Comment on above: Performed By: #### L 500.2500, L501.6710, L100.0100, L501.1400 #### [facility] [address] [place], [address] GFR/1.73 sq M.predicted among non-blacks MDRD (S/P/Bld) [Vol rate/Area] 56 mL/min/{1.73_m2} Low >60 Comment on above: Result Comment: mL/m in/1.73m2 CKD-EPI Creatinine Equation (2020) Performed By: #### L 500.2500, L501.6710, L100.0100, L501.1400 #### [facility] [address] [place], [address] Glucose [Mass/Vol] 71 mg/dL Normal 70-99 [facility] Comment on above: Performed By: #### L 500.2500, L501.6710, L100.0100, L501.1400 #### [facility] [address] [place], [address] Potassium [Moles/Vol] 4.2 mmol/L Normal 3.3-5.1 [facility] Comment on above: Performed By: #### L 500.2500, L501.6710, L100.0100, L501.1400 #### [facility] [address] [place], [address] Sodium [Moles/Vol] 143 mmol/L Normal 133-145 [facility] Comment on above: Performed By: #### L 500.2500, L501.6710, L100.0100, L501.1400 #### [facility] [address] [place], [address] Urea nitrogen [Mass/Vol] 22 mg/dL High 4-19 Comment on above: Performed By: #### L 500.2500, L501.6710, L100.0100, L501.1400 #### Laboratory [address] [place], [address] CBC W/Diff, Automatedon 11-0 3-2024 Absolute Lymph 1.57 X10 3/uL Normal 0.83-4.51 Comment on above: Performed By: #### L 500.2500, L501.6710, L100.0100, L501.1400 #### Laboratory [address] [place], [address] Absolute Neut 3.6 X10 3/uL Normal 2.0-7.7 Comment on above: Performed By: #### L 500.2500, L501.6710, L100.0100, L501.1400 #### Laboratory [address] [facility] [place], [address] Basophils/100 WBC (Bld) 0.9 % Normal 0-1 Comment on above: Performed By: #### L 500.2500, L501.6710, L100.0100, L501.1400 #### Laboratory [address] [facility] [place], [address] Eosinophils/100 WBC (Bld) 1.0 % Normal 0-5 Comment on above: Performed By: #### L 500.2500, L501.6710, L100.0100, L501.1400 #### Laboratory [address] [facility] [place], [address] Erythrocyte distribution width (RBC) [Ratio] 14.3 % Normal 11.6-14.6 Comment on above: Performed By: #### L 500.2500, L501.6710, L100.0100, L501.1400 #### Laboratory [address] [place], [address] Hematocrit (Bld) [Volume fraction] 28.8 % Low 37-47 Comment on above: Performed By: #### L 500.2500, L501.6710, L100.0100, L501.1400 #### Laboratory [address] [place], [address] Hemoglobin (Bld) [Mass/Vol] 8.9 g/dL Low 12.0-15.0 Comment on above: Performed By: #### L 500.2500, L501.6710, L100.0100, L501.1400 #### Laboratory [address] [place], [address] IG% 0.300 Normal 0.0-0.9 Comment on above: Result Comment: IG% - Immature Granulocytes (promyelocytes, myelocytes and metamyelocytes) > 1% indicates that a LEFT SHIFT is Present. Performed By: #### L 500.2500, L501.6710, L100.0100, L501.1400 #### Laboratory [address] [place], [address] Lymphocytes/100 WBC (Bld) 26.9 % Normal 19-41 Comment on above: Performed By: #### L 500.2500, L501.6710, L100.0100, L501.1400 #### Laboratory [address] [place], [address] MCH (RBC) [Entitic mass] 30.9 pg Normal 27.0-32.0 Comment on above: Performed By: #### L 500.2500, L501.6710, L100.0100, L501.1400 #### Laboratory [address] [place], [address] MCHC (RBC) [Mass/Vol] 30.9 g/dL Low 32-36 [facility] Comment on above: Performed By: #### L 500.2500, L501.6710, L100.0100, L501.1400 #### Laboratory [address] [place], [address] MCV (RBC) [Entitic vol] 100.0 fL High 81-99 Comment on above: Performed By: #### L 500.2500, L501.6710, L100.0100, L501.1400 #### Laboratory [address] [place], [address] Monocytes/100 WBC (Bld) 8.9 % Normal 0-10 Comment on above: Performed By: #### L 500.2500, L501.6710, L100.0100, L501.1400 #### Laboratory [address] [place], [address] Neutrophils/100 WBC (Bld) 62.0 % Normal 47-70 Comment on above: Performed By: #### L 500.2500, L501.6710, L100.0100, L501.1400 #### Laboratory [address] [place], [address] Nucleated RBC (Bld) [#/Vol] 0 10*3/uL Normal 0-5 Comment on above: Performed By: #### L 500.2500, L501.6710, L100.0100, L501.1400 #### Laboratory [address] [place], [address] Platelet mean volume (Bld) [Entitic vol] 9.4 fL Normal 6.2-12.0 Comment on above: Performed By: #### L 500.2500, L501.6710, L100.0100, L501.1400 #### Laboratory [address] [place], [address] Platelets (Bld) [#/Vol] 163 10*3/uL Normal 150-450 Comment on above: Performed By: #### L 500.2500, L501.6710, L100.0100, L501.1400 #### Laboratory [address] [place], [address] RBC (Bld) [#/Vol] 2.88 10*6/uL Low 4.2-5.4 [facility] Comment on above: Performed By: #### L 500.2500, L501.6710, L100.0100, L501.1400 #### Laboratory [address] [place], [address] RDW SD 51.6 fl High 35.1-43.9 Comment on above: Performed By: #### L 500.2500, L501.6710, L100.0100, L501.1400 #### Laboratory [address] [place], [address] WBC (Bld) [#/Vol] 5.8 10*3/uL Normal 4.4-11.0 [facility] Comment on above: Performed By: #### L 500.2500, L501.6710, L100.0100, L501.1400 #### Laboratory [address] [place], [address] Uric Acidon 08-11-2025 URIC 7.3 mg/dL High 2.6-6.0 Comment on above: Result Comment: The drugs N-Acetylcysteine and Metamizole may falsely depress this assay. Performed By: #### L 500.2500, L501.6710, L100.0100, L501.1400 #### Laboratory [address] [place], [address] Basic Metabolic Profile (BMP )on 06-23-2025 BUN/CRE 14.3 RATIO Normal 10-20 Comment on above: Order Comment: 162 Performed By: #### L 500.2500 #### Laboratory [address] [place], [address] Calcium [Mass/Vol] 9.1 mg/dL Normal 7.6-11.0 [facility] Comment on above: Order Comment: 162 Performed By: #### L 500.2500 #### Laboratory [address] [place], [address] Chloride [Moles/Vol] 106 mmol/L Normal 98-108 [facility] Comment on above: Order Comment: 162 Performed By: #### L 500.2500 #### Laboratory [address] [place], [address] CO2 [Moles/Vol] 26.1 mmol/L Normal 21.0-32.0 Comment on above: Order Comment: 162 Performed By: #### L 500.2500 #### Laboratory [address] [place], [address] Creatinine [Mass/Vol] 0.95 mg/dL Normal 0.70-1.20 [facility] Comment on above: Order Comment: 162 Performed By: #### L 500.2500 #### Laboratory [address] [place], [address] GAP 11 Normal 5-15 Comment on above: Order Comment: 162 Performed By: #### L 500.2500 #### Laboratory [address] [place], [address] GFR/1.73 sq M.predicted among non-blacks MDRD (S/P/Bld) [Vol rate/Area] 59 mL/min/{1.73_m2} Low >60 Comment on above: Order Comment: 162 Result Comment: mL/m in/1.73m2 CKD-EPI Creatinine Equation (2020) Performed By: #### L 500.2500 #### Laboratory [address] [place], [address] Glucose [Mass/Vol] 105 mg/dL High 70-99 [facility] Comment on above: Order Comment: 162 Performed By: #### L 500.2500 #### Laboratory [address] [place], [address] Potassium [Moles/Vol] 4.2 mmol/L Normal 3.3-5.1 [facility] Comment on above: Order Comment: 162 Performed By: #### L 500.2500 #### Laboratory [address] [place], [address] Sodium [Moles/Vol] 143 mmol/L Normal 133-145 [facility] Comment on above: Order Comment: 162 Performed By: #### L 500.2500 #### Laboratory [address] [place], [place], [address] Urea nitrogen [Mass/Vol] 14 mg/dL Normal 4-19 Comment on above: Order Comment: 162 Performed By: #### L 500.2500 #### Laboratory [address] [place], [address] .Auto Diffon 05-26-2025 Basophil, Absolute 0.0 10 3/mcL Normal 0.0-0.3 [facility] Comment on above: Performed By: #### A 1C, FT4, ANEU, GFR, LIPID, CBC, CMP, TSH, ADIFF #### [address] [address] Basophils/100 WBC (Bld) 0.9 % Normal 0.0-2.5 [facility] Comment on above: Performed By: #### A 1C, FT4, ANEU, GFR, LIPID, CBC, CMP, TSH, ADIFF #### [address] [place], [place] [address] Eosinophil, Absolute 0.1 10 3/mcL Normal 0.0-0.7 [facility] Comment on above: Performed By: #### A 1C, FT4, ANEU, GFR, LIPID, CBC, CMP, TSH, ADIFF #### [address] [address] Eosinophils/100 WBC (Bld) 2.8 % Normal 0.0-6.0 [facility] Comment on above: Performed By: #### A 1C, FT4, ANEU, GFR, LIPID, CBC, CMP, TSH, ADIFF #### [address] [address] Lymphocyte, Absolute 0.9 10 3/mcL Normal 0.9-4.3 [facility] Comment on above: Performed By: #### A 1C, FT4, ANEU, GFR, LIPID, CBC, CMP, TSH, ADIFF #### [address] [address] Lymphocytes/100 WBC (Bld) 18.4 % Low 20.0-40.0 [facility] Comment on above: Performed By: #### A 1C, FT4, ANEU, GFR, LIPID, CBC, CMP, TSH, ADIFF #### [address] [address] Monocyte, Absolute 0.4 10 3/mcL Normal 0.1-1.4 [facility] Comment on above: Performed By: #### A 1C, FT4, ANEU, GFR, LIPID, CBC, CMP, TSH, ADIFF #### [address] [address] Monocytes/100 WBC (Bld) 7.8 % Normal 2.0-13.0 [facility] Comment on above: Performed By: #### A 1C, FT4, ANEU, GFR, LIPID, CBC, CMP, TSH, ADIFF #### [address] [address] Neutrophils/100 WBC (Bld) 70.1 % Normal 50.0-75.0 [facility] Comment on above: Performed By: #### A 1C, FT4, ANEU, GFR, LIPID, CBC, CMP, TSH, ADIFF #### [address] [address] .GFRon 05-26-2025 Estimated Glomerular Filtration Rate 62 ml/min/1.73sqm Normal [facility] Comment on above: Result Comment: Stages of [...] GFR, LIPID, CBC, CMP, TSH, ADIFF #### [address] [address] .NEUABSon 05-26-2025 Neutrophil, Absolute 3.5 10 3/mcL Normal 2.3-8.1 [facility] Comment on above: Performed By: #### A 1C, FT4, ANEU, GFR, LIPID, CBC, CMP, TSH, ADIFF #### [address] [address] A1Con 05-26-2025 Glucose [Mass/Vol] 117 mg/dL Normal [facility] Comment on above: Result Comment: Eugenia mated Average Glucose calculated by equation ((28.7xA1C)-46.7) Estimated average glucose (eAG) is a calculated value from Hemoglobin A1C and is truck sales representative of the average blood glucose level in the last 2-3 month period. Normal range: less than 114 mg/dL Performed By: #### A 1C, FT4, ANEU, GFR, LIPID, CBC, CMP, TSH, ADIFF #### [address] [address] HbA1c (Bld) [Mass fraction] 5.7 % Normal 4.3-6.4 [facility] Comment on above: Performed By: #### A 1C, FT4, ANEU, GFR, LIPID, CBC, CMP, TSH, ADIFF #### [address] [place], [place] [address] CBCon 05-26-2025 Erythrocyte distribution width (RBC) [Ratio] 19.4 % High 11.5-15.5 [facility] Comment on above: Performed By: #### A 1C, FT4, ANEU, GFR, LIPID, CBC, CMP, TSH, ADIFF #### [place] [address] Hematocrit (Bld) [Volume fraction] 31.5 % Low 34.0-46.0 [facility] Comment on above: Performed By: #### A 1C, FT4, ANEU, GFR, LIPID, CBC, CMP, TSH, ADIFF #### [place] [address] Hgb 10.3 G/dL Low 12.0-16.0 [facility] Comment on above: Performed By: #### A 1C, FT4, ANEU, GFR, LIPID, CBC, CMP, TSH, ADIFF #### [place] [address] MCH (RBC) [Entitic mass] 30.1 pg Normal 27.0-33.0 [facility] Comment on above: Performed By: #### A 1C, FT4, ANEU, GFR, LIPID, CBC, CMP, TSH, ADIFF #### [place] [address] MCHC 32.6 G/dL Normal 32.0-36.0 [facility] Comment on above: Performed By: #### A 1C, FT4, ANEU, GFR, LIPID, CBC, CMP, TSH, ADIFF #### [place] [address] MCV (RBC) [Entitic vol] 92.4 fL Normal 80.0-99.0 [facility] Comment on above: Performed By: #### A 1C, FT4, ANEU, GFR, LIPID, CBC, CMP, TSH, ADIFF #### [place] [address] Platelet 146 10 3/mcL Low 150-450 [facility] Comment on above: Performed By: #### A 1C, FT4, ANEU, GFR, LIPID, CBC, CMP, TSH, ADIFF #### [address] [address] Platelet mean volume (Bld) [Entitic vol] 8.0 fL Normal 6.6-10.5 [facility] Comment on above: Performed By: #### A 1C, FT4, ANEU, GFR, LIPID, CBC, CMP, TSH, ADIFF #### [address] [address] RBC 3.41 10 6/mcL Low 4.10-5.30 [facility] Comment on above: Performed By: #### A 1C, FT4, ANEU, GFR, LIPID, CBC, CMP, TSH, ADIFF #### [address] [address] WBC 4.9 10 3/mcL Normal 4.5-10.8 [facility] Comment on above: Performed By: #### A 1C, FT4, ANEU, GFR, LIPID, CBC, CMP, TSH, ADIFF #### [address] [address] CMPon 05-26-2025 Albumin Level 3.5 G/dL Normal 3.4-4.8 [facility] Comment on above: Performed By: #### A 1C, FT4, ANEU, GFR, LIPID, CBC, CMP, TSH, ADIFF #### [address] [address] Albumin/Globulin [Mass ratio] 1.1 {ratio} Normal 1.1-2.5 [facility] Comment on above: Performed By: #### A 1C, FT4, ANEU, GFR, LIPID, CBC, CMP, TSH, ADIFF #### [address] [address] ALP [Catalytic activity/Vol] 53 U/L Normal 40-135 [facility] Comment on above: Performed By: #### A 1C, FT4, ANEU, GFR, LIPID, CBC, CMP, TSH, ADIFF #### [address] [address] ALT [Catalytic activity/Vol] 10 U/L Low 14-59 [facility] Comment on above: Performed By: #### A 1C, FT4, ANEU, GFR, LIPID, CBC, CMP, TSH, ADIFF #### [address] [address] AST [Catalytic activity/Vol] 17 U/L Normal 10-40 [facility] Comment on above: Performed By: #### A 1C, FT4, ANEU, GFR, LIPID, CBC, CMP, TSH, ADIFF #### [address] [address] Bili Total 0.5 mg/dL Normal 0.2-1.0 [facility] Comment on above: Result Comment: Use of this assay is not recommended for patients undergoing treatment with eltrombopag due to the potential for falsely elevated results. Performed By: #### A 1C, FT4, ANEU, GFR, LIPID, CBC, CMP, TSH, ADIFF #### [place] [address] BUN/Creatinine Ratio 18 ratio Normal 7-27 [facility] Comment on above: Performed By: #### A 1C, FT4, ANEU, GFR, LIPID, CBC, CMP, TSH, ADIFF #### [address] [address] Calcium [Mass/Vol] 9.1 mg/dL Normal 8.4-10.2 [facility] Comment on above: Performed By: #### A 1C, FT4, ANEU, GFR, LIPID, CBC, CMP, TSH, ADIFF #### [address] [address] Chloride [Moles/Vol] 103 mmol/L Normal 98-107 [facility] Comment on above: Performed By: #### A 1C, FT4, ANEU, GFR, LIPID, CBC, CMP, TSH, ADIFF #### [address] [address] CO2 [Moles/Vol] 30 mmol/L Normal 23-31 [facility] Comment on above: Performed By: #### A 1C, FT4, ANEU, GFR, LIPID, CBC, CMP, TSH, ADIFF #### [address] [address] Creatinine [Mass/Vol] 0.92 mg/dL Normal 0.51-0.[address] [facility] Comment on above: Performed By: #### A 1C, FT4, ANEU, GFR, LIPID, CBC, CMP, TSH, ADIFF #### [address] [address] Electrolyte Balance 7.0 mEq/L Normal 4.0-15.0 [facility] Comment on above: Performed By: #### A 1C, FT4, ANEU, GFR, LIPID, CBC, CMP, TSH, ADIFF #### [address] [address] Globulin 3.3 G/dL Normal 2.7-4.4 [facility] Comment on above: Performed By: #### A 1C, FT4, ANEU, GFR, LIPID, CBC, CMP, TSH, ADIFF #### [address] [address] Glucose [Mass/Vol] 110 mg/dL Normal 83-110 [facility] Comment on above: Performed By: #### A 1C, FT4, ANEU, GFR, LIPID, CBC, CMP, TSH, ADIFF #### [address] [address] Potassium [Moles/Vol] 3.4 mmol/L Low 3.5-5.[address] [facility] Comment on above: Performed By: #### A 1C, FT4, ANEU, GFR, LIPID, CBC, CMP, TSH, ADIFF #### [address] [address] Sodium [Moles/Vol] 140 mmol/L Normal 136-145 [facility] Comment on above: Performed By: #### A 1C, FT4, ANEU, GFR, LIPID, CBC, CMP, TSH, ADIFF #### [address] [address] Total Protein 6.8 G/dL Normal 6.4-8.2 [facility] Comment on above: Performed By: #### A 1C, FT4, ANEU, GFR, LIPID, CBC, CMP, TSH, ADIFF #### [address] [place], [place] [address] Urea nitrogen [Mass/Vol] 17 mg/dL Normal 04-25 [facility] Comment on above: Performed By: #### A 1C, FT4, ANEU, GFR, LIPID, CBC, CMP, TSH, ADIFF #### [address] [place], [place] [address] FT4on 05-26-2025 Free T4 [Mass/Vol] 0.82 ng/dL Normal 0.76-1.46 [facility] Comment on above: Performed By: #### A 1C, FT4, ANEU, GFR, LIPID, CBC, CMP, TSH, ADIFF #### [address] [address] LABORATORYOrdered By: SYSTEM SYSTEM on 05-26-2025 Albumin [...] calculated value from Hemoglobin A1C and is truck sales representative of the average blood glucose level [...] 05-26-2025 Cholesterol [Mass/Vol] 104 mg/dL Normal 0-200 [facility] Comment on above: Result Comment: Chol esterol Reference Interval: Less than 200 Desirable 200-239 Borderline high risk 240 and above High risk Performed By: #### A 1C, FT4, ANEU, GFR, LIPID, CBC, CMP, TSH, ADIFF #### [address] [address] Cholesterol in HDL [Mass/Vol] 41 mg/dL Normal 40-60 [facility] Comment on above: Performed By: #### A 1C, FT4, ANEU, GFR, LIPID, CBC, CMP, TSH, ADIFF #### [address] [place], [place] [address] Cholesterol in LDL [Mass/Vol] 45 mg/dL Normal 0-130 [facility] Comment on above: Performed By: #### A 1C, FT4, ANEU, GFR, LIPID, CBC, CMP, TSH, ADIFF #### [address] [place], [place] [address] Triglyceride [Mass/Vol] 92 mg/dL Normal 0-150 [facility] Comment on above: Result Comment: Trig lyceride Reference Interval: Less than 150 Normal 150-199 Borderline high risk 200-499 High risk 500 or higher Very high risk Performed By: #### A 1C, FT4, ANEU, GFR, LIPID, CBC, CMP, TSH, ADIFF #### [address] [address] TSHon 05-26-2025 TSH Qn 2.31 m[IU]/L Normal 0.36-3.74 [facility] Comment on above: Performed By: #### A 1C, FT4, ANEU, GFR, LIPID, CBC, CMP, TSH, ADIFF #### [address] [address] .Auto Diffon 05-06-2025 Basophil, Absolute 0.1 10 3/mcL Normal 0.0-0.3 [facility] Comment on above: Performed By: #### C BC, ADIFF, ANEU, MORPH, CMP, GFR ####[address] [address] Basophils/100 WBC (Bld) 0.9 % Normal 0.0-2.5 [facility] Comment on above: Performed By: #### C BC, ADIFF, ANEU, MORPH, CMP, GFR ####[place] [address] Eosinophil, Absolute 0.1 10 3/mcL Normal 0.0-0.7 [facility] Comment on above: Performed By: #### C BC, ADIFF, ANEU, MORPH, CMP, GFR ####[address] [address] Eosinophils/100 WBC (Bld) 2.3 % Normal 0.0-6.0 [facility] Comment on above: Performed By: #### C BC, ADIFF, ANEU, MORPH, CMP, GFR ####[address] [address] Lymphocyte, Absolute 1.4 10 3/mcL Normal 0.9-4.3 [facility] Comment on above: Performed By: #### C BC, ADIFF, ANEU, MORPH, CMP, GFR ####[address] [place] [address] Lymphocytes/100 WBC (Bld) 23.1 % Normal 20.0-40.0 [facility] Comment on above: Performed By: #### C BC, ADIFF, ANEU, MORPH, CMP, GFR ####[address] [place], [place] [address] Monocyte, Absolute 0.5 10 3/mcL Normal 0.1-1.4 [facility] Comment on above: Performed By: #### C BC, ADIFF, ANEU, MORPH, CMP, GFR ####[address] [place], [place] [address] Monocytes/100 WBC (Bld) 7.4 % Normal 2.0-13.0 [facility] Comment on above: Performed By: #### C BC, ADIFF, ANEU, MORPH, CMP, GFR ####[address] [place], [place] [address] Neutrophils/100 WBC (Bld) 66.3 % Normal 50.0-75.0 [facility] Comment on above: Performed By: #### C BC, ADIFF, ANEU, MORPH, CMP, GFR ####[address] [place], [place] [address] .GFRon 05-06-2025 Estimated Glomerular Filtration Rate 61 ml/min/1.73sqm Normal [facility] Comment on above: Result Comment: Stages of [...] ADIFF, ANEU, MORPH, CMP, GFR ####[address] [place], [place] [address] .Morphon 05-06-2025 Platelet Estimate Normal Normal [facility] Comment on above: Performed By: #### C BC, ADIFF, ANEU, MORPH, CMP, GFR ####[address] [place] [id number] .NEUABSon 05-06-2025 Neutrophil, Absolute 4.1 10 3/mcL Normal 2.3-8.1 [facility] Comment on above: Performed By: #### C BC, ADIFF, ANEU, MORPH, CMP, GFR ####[address] [place] [address] CBCon 05-06-2025 Erythrocyte distribution width (RBC) [Ratio] 20.3 % High 11.5-15.5 [facility] Comment on above: Performed By: #### C BC, ADIFF, ANEU, MORPH, CMP, GFR ####[id number] [place] [address] Hematocrit (Bld) [Volume fraction] 31.3 % Low 34.0-46.0 [facility] Comment on above: Performed By: #### C BC, ADIFF, ANEU, MORPH, CMP, GFR ####[address] [address] Hgb 10.2 G/dL Low 12.0-16.0 [facility] Comment on above: Performed By: #### C BC, ADIFF, ANEU, MORPH, CMP, GFR ####[address] [address] MCH (RBC) [Entitic mass] 29.3 pg Normal 27.0-33.0 [facility] Comment on above: Performed By: #### C BC, ADIFF, ANEU, MORPH, CMP, GFR ####[address] [place] [address] MCHC 32.6 G/dL Normal 32.0-36.0 [facility] Comment on above: Performed By: #### C BC, ADIFF, ANEU, MORPH, CMP, GFR ####[address] [place] [address] MCV (RBC) [Entitic vol] 90.1 fL Normal 80.0-99.0 [facility] Comment on above: Performed By: #### C BC, ADIFF, ANEU, MORPH, CMP, GFR ####[address] [place], [place] [address] Platelet 194 10 3/mcL Normal 150-450 [facility] Comment on above: Performed By: #### C BC, ADIFF, ANEU, MORPH, CMP, GFR ####[address] [place], [place] [address] Platelet mean volume (Bld) [Entitic vol] 7.3 fL Normal 6.6-10.5 [facility] Comment on above: Performed By: #### C BC, ADIFF, ANEU, MORPH, CMP, GFR ####[address] [place], [place] [address] RBC 3.47 10 6/mcL Low 4.10-5.30 [facility] Comment on above: Performed By: #### C BC, ADIFF, ANEU, MORPH, CMP, GFR ####[address] [place], [place] [address] WBC 6.2 10 3/mcL Normal 4.5-10.8 [facility] Comment on above: Performed By: #### C BC, ADIFF, ANEU, MORPH, CMP, GFR ####[address] [place], [place] [address] CMPon 05-06-2025 Albumin Level 3.6 G/dL Normal 3.4-4.8 [facility] Comment on above: Performed By: #### C BC, ADIFF, ANEU, MORPH, CMP, GFR ####[address] [place], [place] [address] Albumin/Globulin [Mass ratio] 1.1 {ratio} Normal 1.1-2.5 [facility] Comment on above: Performed By: #### C BC, ADIFF, ANEU, MORPH, CMP, GFR ####[address] [place], [place] [address] ALP [Catalytic activity/Vol] 61 U/L Normal 40-135 [facility] Comment on above: Performed By: #### C BC, ADIFF, ANEU, MORPH, CMP, GFR ####[place] [address] [place], [place] [address] ALT [Catalytic activity/Vol] 16 U/L Normal 14-59 [facility] Comment on above: Performed By: #### C BC, ADIFF, ANEU, MORPH, CMP, GFR ####[address] [place], [place] [address] AST [Catalytic activity/Vol] 19 U/L Normal 10-40 [facility] Comment on above: Performed By: #### C BC, ADIFF, ANEU, MORPH, CMP, GFR ####[place] [address] [address] [place] [id number] Bili Total 0.4 mg/dL Normal 0.2-1.0 [facility] Comment on above: Result Comment: Use of this assay is not recommended for patients undergoing treatment with eltrombopag due to the potential for falsely elevated results. Performed By: #### C BC, ADIFF, ANEU, MORPH, CMP, GFR ####[place] [address] [place] [id number] BUN/Creatinine Ratio 15 ratio Normal 7-27 [facility] Comment on above: Performed By: #### C BC, ADIFF, ANEU, MORPH, CMP, GFR ####[address] [address] [place], [place] [address] Calcium [Mass/Vol] 9.4 mg/dL Normal 8.4-10.2 [facility] Comment on above: Performed By: #### C BC, ADIFF, ANEU, MORPH, CMP, GFR ####[address] [address] [place], [place] [address] Chloride [Moles/Vol] 103 mmol/L Normal 98-107 [facility] Comment on above: Performed By: #### C BC, ADIFF, ANEU, MORPH, CMP, GFR ####[address] [place], [place] [address] CO2 [Moles/Vol] 28 mmol/L Normal 23-31 [facility] Comment on above: Performed By: #### C BC, ADIFF, ANEU, MORPH, CMP, GFR ####[place] [address] [place], [place] [address] Creatinine [Mass/Vol] 0.93 mg/dL Normal 0.51-0.[address] [facility] Comment on above: Performed By: #### C BC, ADIFF, ANEU, MORPH, CMP, GFR ####[address] [place] [id number] Electrolyte Balance 11.0 mEq/L Normal 4.0-15.0 [facility] Comment on above: Performed By: #### C BC, ADIFF, ANEU, MORPH, CMP, GFR ####[address] [place], [place] [address] Globulin 3.4 G/dL Normal 2.7-4.4 [facility] Comment on above: Performed By: #### C BC, ADIFF, ANEU, MORPH, CMP, GFR ####[address] [address] Glucose [Mass/Vol] 159 mg/dL High 83-110 [facility] Comment on above: Performed By: #### C BC, ADIFF, ANEU, MORPH, CMP, GFR ####[address] [address] Potassium [Moles/Vol] 3.5 mmol/L Normal 3.5-5.[address] [facility] Comment on above: Performed By: #### C BC, ADIFF, ANEU, MORPH, CMP, GFR ####[address] [address] Sodium [Moles/Vol] 142 mmol/L Normal 136-145 [facility] Comment on above: Performed By: #### C BC, ADIFF, ANEU, MORPH, CMP, GFR ####[address] [address] Total Protein 7.0 G/dL Normal 6.4-8.2 [facility] Comment on above: Performed By: #### C BC, ADIFF, ANEU, MORPH, CMP, GFR ####[facility] [place], [place] [address] Urea nitrogen [Mass/Vol] 14 mg/dL Normal 7-18 [facility] Comment on above: Performed By: #### C BC, ADIFF, ANEU, MORPH, CMP, GFR ####[facility] [place], [place] [address] LABORATORYOrdered By: SYSTEM SYSTEM on 05-06-2025 Albumin [...] 116 mg/dL High 82 - 115 mg/dL [facility] HbA1c (Bld) [Mass fraction] 5.7 % [facility] Performed By Dhruv Cook PharmD [facility] Performing Location [facility] GGTon 04-15-2025 Gamma GT 94 U/L High 5-55 [facility] Comment on above: Performed By: #### A 1C, FT4, ANEU, GFR, LIPID, CBC, CMP, TSH, ADIFF #### [address] [address] ALT/SGPTon 04-14-2025 ALT [Catalytic activity/Vol] 39 U/L Normal 14-59 [facility] Comment on above: Performed By: #### A 1C, FT4, ANEU, GFR, LIPID, CBC, CMP, TSH, ADIFF #### [address] [address] APon 04-14-2025 ALP [Catalytic activity/Vol] 88 U/L Normal 40-135 [facility] Comment on above: Performed By: #### A 1C, FT4, ANEU, GFR, LIPID, CBC, CMP, TSH, ADIFF #### [address] [address] FEon 04-14-2025 Iron [Mass/Vol] 28 ug/dL Low 50-170 [facility] Comment on above: Performed By: #### A 1C, FT4, ANEU, GFR, LIPID, CBC, CMP, TSH, ADIFF #### [address] [address] Dipti 04-14-2025 Ferritin [Mass/Vol] 40.0 ng/mL Normal 8.0-252.0 [facility] Comment on above: Performed By: #### A 1C, FT4, ANEU, GFR, LIPID, CBC, CMP, TSH, ADIFF #### [address] [address] HHon 04-14-2025 Hematocrit (Bld) [Volume fraction] 27.4 % Low 34.0-46.0 [facility] Comment on above: Performed By: #### A 1C, FT4, ANEU, GFR, LIPID, CBC, CMP, TSH, ADIFF #### [address] [address] Hgb 8.8 G/dL Low 12.0-16.0 [facility] Comment on above: Performed By: #### A 1C, FT4, ANEU, GFR, LIPID, CBC, CMP, TSH, ADIFF #### [address] [address] LABORATORYOrdered By: SYSTEM SYSTEM on 04-14-2025 ALP [...] Basophil, Absolute 0.0 10 3/mcL Normal 0.0-0.3 [facility] Comment on above: Performed By: #### A 1C, FT4, ANEU, GFR, LIPID, CBC, CMP, TSH, ADIFF #### [address] [address] Basophils/100 WBC (Bld) 0.6 % Normal 0.0-2.5 [facility] Comment on above: Performed By: #### A 1C, FT4, ANEU, GFR, LIPID, CBC, CMP, TSH, ADIFF #### [address] [address] Eosinophil, Absolute 0.1 10 3/mcL Normal 0.0-0.7 [facility] Comment on above: Performed By: #### A 1C, FT4, ANEU, GFR, LIPID, CBC, CMP, TSH, ADIFF #### [address] [address] Eosinophils/100 WBC (Bld) 1.6 % Normal 0.0-6.0 [facility] Comment on above: Performed By: #### A 1C, FT4, ANEU, GFR, LIPID, CBC, CMP, TSH, ADIFF #### [address] [address] Lymphocyte, Absolute 1.5 10 3/mcL Normal 0.9-4.3 [facility] Comment on above: Performed By: #### A 1C, FT4, ANEU, GFR, LIPID, CBC, CMP, TSH, ADIFF #### [address] [address] Lymphocytes/100 WBC (Bld) 20.6 % Normal 20.0-40.0 [facility] Comment on above: Performed By: #### A 1C, FT4, ANEU, GFR, LIPID, CBC, CMP, TSH, ADIFF #### [address] [address] Monocyte, Absolute 0.5 10 3/mcL Normal 0.1-1.4 [facility] Comment on above: Performed By: #### A 1C, FT4, ANEU, GFR, LIPID, CBC, CMP, TSH, ADIFF #### [address] [address] Monocytes/100 WBC (Bld) 6.8 % Normal 2.0-13.0 [facility] Comment on above: Performed By: #### A 1C, FT4, ANEU, GFR, LIPID, CBC, CMP, TSH, ADIFF #### [address] [address] Neutrophils/100 WBC (Bld) 70.4 % Normal 50.0-75.0 [facility] Comment on above: Performed By: #### A 1C, FT4, ANEU, GFR, LIPID, CBC, CMP, TSH, ADIFF #### [address] [address] .NEUABSon 03-28-2025 Neutrophil, Absolute 5.0 10 3/mcL Normal 2.3-8.1 [facility] Comment on above: Performed By: #### A 1C, FT4, ANEU, GFR, LIPID, CBC, CMP, TSH, ADIFF #### [address] [address] CBCon 03-28-2025 Erythrocyte distribution width (RBC) [Ratio] 16.0 % High 11.5-15.5 [facility] Comment on above: Performed By: #### A 1C, FT4, ANEU, GFR, LIPID, CBC, CMP, TSH, ADIFF #### [address] [address] Hematocrit (Bld) [Volume fraction] 28.4 % Low 34.0-46.0 [facility] Comment on above: Performed By: #### A 1C, FT4, ANEU, GFR, LIPID, CBC, CMP, TSH, ADIFF #### [address] [address] Hgb 9.0 G/dL Low 12.0-16.0 [facility] Comment on above: Performed By: #### A 1C, FT4, ANEU, GFR, LIPID, CBC, CMP, TSH, ADIFF #### [address] [address] MCH (RBC) [Entitic mass] 27.6 pg Normal 27.0-33.0 [facility] Comment on above: Performed By: #### A 1C, FT4, ANEU, GFR, LIPID, CBC, CMP, TSH, ADIFF #### [address] [address] MCHC 31.8 G/dL Low 32.0-36.0 [facility] Comment on above: Performed By: #### A 1C, FT4, ANEU, GFR, LIPID, CBC, CMP, TSH, ADIFF #### [address] [address] MCV (RBC) [Entitic vol] 86.9 fL Normal 80.0-99.0 [facility] Comment on above: Performed By: #### A 1C, FT4, ANEU, GFR, LIPID, CBC, CMP, TSH, ADIFF #### [address] [address] Platelet 286 10 3/mcL Normal 150-450 [facility] Comment on above: Performed By: #### A 1C, FT4, ANEU, GFR, LIPID, CBC, CMP, TSH, ADIFF #### [place] [address] Platelet mean volume (Bld) [Entitic vol] 7.5 fL Normal 6.6-10.5 [facility] Comment on above: Performed By: #### A 1C, FT4, ANEU, GFR, LIPID, CBC, CMP, TSH, ADIFF #### [place] [address] RBC 3.27 10 6/mcL Low 4.10-5.30 [facility] Comment on above: Performed By: #### A 1C, FT4, ANEU, GFR, LIPID, CBC, CMP, TSH, ADIFF #### [place] [address] WBC 7.2 10 3/mcL Normal 4.5-10.8 [facility] Comment on above: Performed By: #### A 1C, FT4, ANEU, GFR, LIPID, CBC, CMP, TSH, ADIFF #### [place] [address] FEon 03-28-2025 Iron [Mass/Vol] 30 ug/dL Low 50-170 [facility] Comment on above: Performed By: #### A 1C, FT4, ANEU, GFR, LIPID, CBC, CMP, TSH, ADIFF #### [place] [address] Dipti 03-28-2025 Ferritin [Mass/Vol] 50.0 ng/mL Normal 8.0-252.0 [facility] Comment on above: Performed By: #### A 1C, FT4, ANEU, GFR, LIPID, CBC, CMP, TSH, ADIFF #### [place] [address] LABORATORYOrdered By: SYSTEM SYSTEM on 03-28-2025 Basophils [...] Immature Retic Fraction 0.40 IRF Normal 0.20-0.46 [facility] Comment on above: Performed By: #### A 1C, FT4, ANEU, GFR, LIPID, CBC, CMP, TSH, ADIFF #### [address] [address] Reticulocytes, Auto 2.0 % Normal 0.2-2.3 [facility] Comment on above: Performed By: #### A 1C, FT4, ANEU, GFR, LIPID, CBC, CMP, TSH, ADIFF #### [address] [address] .GFRon 03-20-2025 Estimated Glomerular Filtration Rate 57 ml/min/1.73sqm Normal [facility] Comment on above: Result Comment: Stages of [...] By: #### G FR, BMP #### [address] [place] [address] [place], [place] [address] BMPon 03-20-2025 BUN/Creatinine Ratio 17 ratio Normal 7-27 [facility] Comment on above: Performed By: #### G FR, BMP #### [place] [address] [facility] [place], [place] [address] Calcium [Mass/Vol] 9.1 mg/dL Normal 8.4-10.2 [facility] Comment on above: Performed By: #### G FR, BMP #### [place] [address] [facility] [place], [place] [address] Chloride [Moles/Vol] 103 mmol/L Normal 98-107 [facility] Comment on above: Performed By: #### G FR, BMP #### [address] [address] [facility] [place] [address] CO2 [Moles/Vol] 28 mmol/L Normal 23-31 [facility] Comment on above: Performed By: #### G FR, BMP #### [place] [address] [facility] [place] [address] Creatinine [Mass/Vol] 0.98 mg/dL High 0.51-0.95 [facility] Comment on above: Performed By: #### G FR, BMP #### [place] [address] [facility] [place] [address] Electrolyte Balance 10.0 mEq/L Normal 4.0-15.0 [facility] Comment on above: Performed By: #### G FR, BMP #### [place] [address] [facility] [place] [address] Glucose [Mass/Vol] 175 mg/dL High 83-110 [facility] Comment on above: Performed By: #### G FR, BMP #### [place] [address] [facility] [place] [address] Potassium [Moles/Vol] 4.1 mmol/L Normal 3.5-5.1 [facility] Comment on above: Performed By: #### G FR, BMP #### [place] [address] [facility] [place], [place] [address] Sodium [Moles/Vol] 141 mmol/L Normal 136-145 [facility] Comment on above: Performed By: #### G FR, BMP #### [facility] [address] [place], [place] [address] Urea nitrogen [Mass/Vol] 17 mg/dL Normal 7-18 [facility] Comment on above: Performed By: #### G FR, BMP #### [facility] [address] [place], [place] [address] .Auto Diffon 03-06-2025 Basophil, Absolute 0.0 10 3/mcL Normal 0.0-0.3 [facility] Comment on above: Performed By: #### A 1C, FT4, ANEU, GFR, LIPID, CBC, CMP, TSH, ADIFF #### [address] [address] Basophils/100 WBC (Bld) 0.9 % Normal 0.0-2.5 [facility] Comment on above: Performed By: #### A 1C, FT4, ANEU, GFR, LIPID, CBC, CMP, TSH, ADIFF #### [address] [address] Eosinophil, Absolute 0.2 10 3/mcL Normal 0.0-0.7 [facility] Comment on above: Performed By: #### A 1C, FT4, ANEU, GFR, LIPID, CBC, CMP, TSH, ADIFF #### [address] [address] Eosinophils/100 WBC (Bld) 3.3 % Normal 0.0-6.0 [facility] Comment on above: Performed By: #### A 1C, FT4, ANEU, GFR, LIPID, CBC, CMP, TSH, ADIFF #### [address] [address] Lymphocyte, Absolute 0.8 10 3/mcL Low 0.9-4.3 [facility] Comment on above: Performed By: #### A 1C, FT4, ANEU, GFR, LIPID, CBC, CMP, TSH, ADIFF #### [address] [address] Lymphocytes/100 WBC (Bld) 15.5 % Low 20.0-40.0 [facility] Comment on above: Performed By: #### A 1C, FT4, ANEU, GFR, LIPID, CBC, CMP, TSH, ADIFF #### [place] [address] [place], [place] [address] Monocyte, Absolute 0.5 10 3/mcL Normal 0.1-1.4 [facility] Comment on above: Performed By: #### A 1C, FT4, ANEU, GFR, LIPID, CBC, CMP, TSH, ADIFF #### [address] [address] Monocytes/100 WBC (Bld) 9.3 % Normal 2.0-13.0 [facility] Comment on above: Performed By: #### A 1C, FT4, ANEU, GFR, LIPID, CBC, CMP, TSH, ADIFF #### [place] [address] [place], [place] [address] Neutrophils/100 WBC (Bld) 71.0 % Normal 50.0-75.0 [facility] Comment on above: Performed By: #### A 1C, FT4, ANEU, GFR, LIPID, CBC, CMP, TSH, ADIFF #### [address] [address] .GFRon 03-06-2025 Estimated Glomerular Filtration Rate 35 ml/min/1.73sqm Normal [facility] Comment on above: Result Comment: Stages of [...] LIPID, CBC, CMP, TSH, ADIFF #### [place] [address] .NEUABSon 03-06-2025 Neutrophil, Absolute 3.8 10 3/mcL Normal 2.3-8.1 [facility] Comment on above: Performed By: #### A 1C, FT4, ANEU, GFR, LIPID, CBC, CMP, TSH, ADIFF #### [place] [address] CBCon 03-06-2025 Erythrocyte distribution width (RBC) [Ratio] 16.1 % High 11.5-15.5 [facility] Comment on above: Performed By: #### A 1C, FT4, ANEU, GFR, LIPID, CBC, CMP, TSH, ADIFF #### [place] [address] Hematocrit (Bld) [Volume fraction] 29.5 % Low 34.0-46.0 [facility] Comment on above: Performed By: #### A 1C, FT4, ANEU, GFR, LIPID, CBC, CMP, TSH, ADIFF #### [place] [address] Hgb 9.5 G/dL Low 12.0-16.0 [facility] Comment on above: Performed By: #### A 1C, FT4, ANEU, GFR, LIPID, CBC, CMP, TSH, ADIFF #### [place] [id number] MCH (RBC) [Entitic mass] 28.4 pg Normal 27.0-33.0 [facility] Comment on above: Performed By: #### A 1C, FT4, ANEU, GFR, LIPID, CBC, CMP, TSH, ADIFF #### [place] [address] MCHC 32.3 G/dL Normal 32.0-36.0 [facility] Comment on above: Performed By: #### A 1C, FT4, ANEU, GFR, LIPID, CBC, CMP, TSH, ADIFF #### [place] [address] MCV (RBC) [Entitic vol] 87.9 fL Normal 80.0-99.0 [facility] Comment on above: Performed By: #### A 1C, FT4, ANEU, GFR, LIPID, CBC, CMP, TSH, ADIFF #### [address] [address] Platelet 198 10 3/mcL Normal 150-450 [facility] Comment on above: Performed By: #### A 1C, FT4, ANEU, GFR, LIPID, CBC, CMP, TSH, ADIFF #### [address] [address] Platelet mean volume (Bld) [Entitic vol] 7.1 fL Normal 6.6-10.5 [facility] Comment on above: Performed By: #### A 1C, FT4, ANEU, GFR, LIPID, CBC, CMP, TSH, ADIFF #### [address] [address] RBC 3.36 10 6/mcL Low 4.10-5.30 [facility] Comment on above: Performed By: #### A 1C, FT4, ANEU, GFR, LIPID, CBC, CMP, TSH, ADIFF #### [address] [address] WBC 5.3 10 3/mcL Normal 4.5-10.8 [facility] Comment on above: Performed By: #### A 1C, FT4, ANEU, GFR, LIPID, CBC, CMP, TSH, ADIFF #### [address] [address] CMPon 03-06-2025 Albumin Level 3.6 G/dL Normal 3.4-4.8 [facility] Comment on above: Performed By: #### A 1C, FT4, ANEU, GFR, LIPID, CBC, CMP, TSH, ADIFF #### [address] [address] Albumin/Globulin [Mass ratio] 1.0 {ratio} Low 1.1-2.5 [facility] Comment on above: Performed By: #### A 1C, FT4, ANEU, GFR, LIPID, CBC, CMP, TSH, ADIFF #### [address] [address] ALP [Catalytic activity/Vol] 77 U/L Normal 40-135 [facility] Comment on above: Performed By: #### A 1C, FT4, ANEU, GFR, LIPID, CBC, CMP, TSH, ADIFF #### [address] [address] ALT [Catalytic activity/Vol] 18 U/L Normal 14-59 [facility] Comment on above: Performed By: #### A 1C, FT4, ANEU, GFR, LIPID, CBC, CMP, TSH, ADIFF #### [address] [address] AST [Catalytic activity/Vol] 19 U/L Normal 10-40 [facility] Comment on above: Performed By: #### A 1C, FT4, ANEU, GFR, LIPID, CBC, CMP, TSH, ADIFF #### [address] [address] Bili Total 0.2 mg/dL Normal 0.2-1.0 [facility] Comment on above: Result Comment: Use of this assay is not recommended for patients undergoing treatment with eltrombopag due to the potential for falsely elevated results. Performed By: #### A 1C, FT4, ANEU, GFR, LIPID, CBC, CMP, TSH, ADIFF #### [address] [address] BUN/Creatinine Ratio 16 ratio Normal 7-27 [facility] Comment on above: Performed By: #### A 1C, FT4, ANEU, GFR, LIPID, CBC, CMP, TSH, ADIFF #### [address] [address] Calcium [Mass/Vol] 9.1 mg/dL Normal 8.4-10.2 [facility] Comment on above: Performed By: #### A 1C, FT4, ANEU, GFR, LIPID, CBC, CMP, TSH, ADIFF #### [address] [address] Chloride [Moles/Vol] 102 mmol/L Normal 98-107 [facility] Comment on above: Performed By: #### A 1C, FT4, ANEU, GFR, LIPID, CBC, CMP, TSH, ADIFF #### [place] [address] CO2 [Moles/Vol] 24 mmol/L Normal 23-31 [facility] Comment on above: Performed By: #### A 1C, FT4, ANEU, GFR, LIPID, CBC, CMP, TSH, ADIFF #### [address] [address] Creatinine [Mass/Vol] 1.47 mg/dL High 0.51-0.[address] [facility] Comment on above: Performed By: #### A 1C, FT4, ANEU, GFR, LIPID, CBC, CMP, TSH, ADIFF #### [place] [address] Electrolyte Balance 10.0 mEq/L Normal 4.0-15.0 [facility] Comment on above: Performed By: #### A 1C, FT4, ANEU, GFR, LIPID, CBC, CMP, TSH, ADIFF #### [place] [address] Globulin 3.7 G/dL Normal 2.7-4.4 [facility] Comment on above: Performed By: #### A 1C, FT4, ANEU, GFR, LIPID, CBC, CMP, TSH, ADIFF #### [place] [address] Glucose [Mass/Vol] 189 mg/dL High 83-110 [facility] Comment on above: Performed By: #### A 1C, FT4, ANEU, GFR, LIPID, CBC, CMP, TSH, ADIFF #### [place] [address] Potassium [Moles/Vol] 5.0 mmol/L Normal 3.5-5.[address] [facility] Comment on above: Performed By: #### A 1C, FT4, ANEU, GFR, LIPID, CBC, CMP, TSH, ADIFF #### [address] [address] Sodium [Moles/Vol] 136 mmol/L Normal 136-145 [facility] Comment on above: Performed By: #### A 1C, FT4, ANEU, GFR, LIPID, CBC, CMP, TSH, ADIFF #### [place] [address] Total Protein 7.3 G/dL Normal 6.4-8.2 [facility] Comment on above: Performed By: #### A 1C, FT4, ANEU, GFR, LIPID, CBC, CMP, TSH, ADIFF #### [place] [address] Urea nitrogen [Mass/Vol] 23 mg/dL High 7-18 [facility] Comment on above: Performed By: #### A 1C, FT4, ANEU, GFR, LIPID, CBC, CMP, TSH, ADIFF #### [place] [address] FEon 03-06-2025 Iron [Mass/Vol] 35 ug/dL Low 50-170 [facility] Comment on above: Performed By: #### A 1C, FT4, ANEU, GFR, LIPID, CBC, CMP, TSH, ADIFF #### [address] [address] Dipti 03-06-2025 Ferritin [Mass/Vol] 28.0 ng/mL Normal 8.0-252.0 [facility] Comment on above: Performed By: #### A 1C, FT4, ANEU, GFR, LIPID, CBC, CMP, TSH, ADIFF #### [place] [address] LABORATORYOrdered By: SYSTEM SYSTEM on 03-06-2025 Albumin [...] Immature Retic Fraction 0.38 IRF Normal 0.20-0.46 [facility] Comment on above: Performed By: #### A 1C, FT4, ANEU, GFR, LIPID, CBC, CMP, TSH, ADIFF #### [place] [address] [place], [place] [address] Reticulocytes, Auto 1.6 % Normal 0.2-2.3 [facility] Comment on above: Performed By: #### A 1C, FT4, ANEU, GFR, LIPID, CBC, CMP, TSH, ADIFF #### [place] [address] [place], [place] [address] No Panel Informationon 02-20 Culture Wound Aerobe Few normal skin mariano ra present. Sensitivity testing not indicated. [facility] GS 4+ Polymorphonuclear cells 2+ Gram Positive Cocci [facility] CT ABDOMEN/PELVIS W/CONTRAST on 02-18-2025 CT ABDOMEN/PELVIS [...] 02/18/2025 4:10:18 PM Ordering Provider: FITZ GA Normal [facility] .Auto Diffon 02-10-2025 Basophil, Absolute 0.0 10 3/mcL Normal 0.0-0.3 [facility] Comment on above: Performed By: #### A 1C, FT4, ANEU, GFR, LIPID, CBC, CMP, TSH, ADIFF #### [facility] [address] [place], [place] [address] Basophils/100 WBC (Bld) 0.5 % Normal 0.0-2.5 [facility] Comment on above: Performed By: #### A 1C, FT4, ANEU, GFR, LIPID, CBC, CMP, TSH, ADIFF #### [address] [address] Eosinophil, Absolute 0.2 10 3/mcL Normal 0.0-0.7 [facility] Comment on above: Performed By: #### A 1C, FT4, ANEU, GFR, LIPID, CBC, CMP, TSH, ADIFF #### [address] [address] Eosinophils/100 WBC (Bld) 4.3 % Normal 0.0-6.0 [facility] Comment on above: Performed By: #### A 1C, FT4, ANEU, GFR, LIPID, CBC, CMP, TSH, ADIFF #### [address] [address] Lymphocyte, Absolute 1.1 10 3/mcL Normal 0.9-4.3 [facility] Comment on above: Performed By: #### A 1C, FT4, ANEU, GFR, LIPID, CBC, CMP, TSH, ADIFF #### [address] [address] Lymphocytes/100 WBC (Bld) 23.7 % Normal 20.0-40.0 [facility] Comment on above: Performed By: #### A 1C, FT4, ANEU, GFR, LIPID, CBC, CMP, TSH, ADIFF #### [address] [address] Monocyte, Absolute 0.4 10 3/mcL Normal 0.1-1.4 [facility] Comment on above: Performed By: #### A 1C, FT4, ANEU, GFR, LIPID, CBC, CMP, TSH, ADIFF #### [address] [address] Monocytes/100 WBC (Bld) 8.2 % Normal 2.0-13.0 [facility] Comment on above: Performed By: #### A 1C, FT4, ANEU, GFR, LIPID, CBC, CMP, TSH, ADIFF #### [address] [address] Neutrophils/100 WBC (Bld) 63.3 % Normal 50.0-75.0 [facility] Comment on above: Performed By: #### A 1C, FT4, ANEU, GFR, LIPID, CBC, CMP, TSH, ADIFF #### [address] [address] .GFRon 02-10-2025 Estimated Glomerular Filtration Rate 71 ml/min/1.73sqm Normal [facility] Comment on above: Result Comment: Stages of [...] GFR, LIPID, CBC, CMP, TSH, ADIFF #### [address] [address] .NEUABSon 02-10-2025 Neutrophil, Absolute 3.0 10 3/mcL Normal 2.3-8.1 [facility] Comment on above: Performed By: #### A 1C, FT4, ANEU, GFR, LIPID, CBC, CMP, TSH, ADIFF #### [place] [address] [place], [place] [address] A1Con 02-10-2025 Glucose [Mass/Vol] 146 mg/dL Normal [facility] Comment on above: Result Comment: Eugenia mated Average Glucose calculated by equation ((28.7xA1C)-46.7) Estimated average glucose (eAG) is a calculated value from Hemoglobin A1C and is truck sales representative of the average blood glucose level in the last 2-3 month period. Normal range: less than 114 mg/dL Performed By: #### A 1C, FT4, ANEU, GFR, LIPID, CBC, CMP, TSH, ADIFF ####[place] [address] HbA1c (Bld) [Mass fraction] 6.7 % High 4.3-6.4 [facility] Comment on above: Performed By: #### A 1C, FT4, ANEU, GFR, LIPID, CBC, CMP, TSH, ADIFF ####[place] [address] CBCon 02-10-2025 Erythrocyte distribution width (RBC) [Ratio] 15.5 % Normal 11.5-15.5 [facility] Comment on above: Performed By: #### A 1C, FT4, ANEU, GFR, LIPID, CBC, CMP, TSH, ADIFF #### [place] [address] Hematocrit (Bld) [Volume fraction] 30.2 % Low 34.0-46.0 [facility] Comment on above: Performed By: #### A 1C, FT4, ANEU, GFR, LIPID, CBC, CMP, TSH, ADIFF #### [place] [address] Hgb 9.9 G/dL Low 12.0-16.0 [facility] Comment on above: Performed By: #### A 1C, FT4, ANEU, GFR, LIPID, CBC, CMP, TSH, ADIFF #### [place] [address] MCH (RBC) [Entitic mass] 29.5 pg Normal 27.0-33.0 [facility] Comment on above: Performed By: #### A 1C, FT4, ANEU, GFR, LIPID, CBC, CMP, TSH, ADIFF #### [place] [address] MCHC 32.8 G/dL Normal 32.0-36.0 [facility] Comment on above: Performed By: #### A 1C, FT4, ANEU, GFR, LIPID, CBC, CMP, TSH, ADIFF #### [address] [place] [address] MCV (RBC) [Entitic vol] 90.0 fL Normal 80.0-99.0 [facility] Comment on above: Performed By: #### A 1C, FT4, ANEU, GFR, LIPID, CBC, CMP, TSH, ADIFF #### [address] [address] Platelet 290 10 3/mcL Normal 150-450 [facility] Comment on above: Performed By: #### A 1C, FT4, ANEU, GFR, LIPID, CBC, CMP, TSH, ADIFF #### [address] [address] Platelet mean volume (Bld) [Entitic vol] 6.9 fL Normal 6.6-10.5 [facility] Comment on above: Performed By: #### A 1C, FT4, ANEU, GFR, LIPID, CBC, CMP, TSH, ADIFF #### [address] [address] RBC 3.35 10 6/mcL Low 4.10-5.30 [facility] Comment on above: Performed By: #### A 1C, FT4, ANEU, GFR, LIPID, CBC, CMP, TSH, ADIFF #### [address] [address] WBC 4.7 10 3/mcL Normal 4.5-10.8 [facility] Comment on above: Performed By: #### A 1C, FT4, ANEU, GFR, LIPID, CBC, CMP, TSH, ADIFF #### [address] [address] CMPon 02-10-2025 Albumin Level 3.5 G/dL Normal 3.4-4.8 [facility] Comment on above: Performed By: #### A 1C, FT4, ANEU, GFR, LIPID, CBC, CMP, TSH, ADIFF #### [address] [address] Albumin/Globulin [Mass ratio] 1.0 {ratio} Low 1.1-2.5 [facility] Comment on above: Performed By: #### A 1C, FT4, ANEU, GFR, LIPID, CBC, CMP, TSH, ADIFF #### [place] [address] ALP [Catalytic activity/Vol] 195 U/L High 40-135 [facility] Comment on above: Performed By: #### A 1C, FT4, ANEU, GFR, LIPID, CBC, CMP, TSH, ADIFF #### [place] [address] ALT [Catalytic activity/Vol] 67 U/L High 14-59 [facility] Comment on above: Performed By: #### A 1C, FT4, ANEU, GFR, LIPID, CBC, CMP, TSH, ADIFF #### [place] [address] AST [Catalytic activity/Vol] 98 U/L High 10-40 [facility] Comment on above: Performed By: #### A 1C, FT4, ANEU, GFR, LIPID, CBC, CMP, TSH, ADIFF #### [place] [address] Bili Total 0.5 mg/dL Normal 0.2-1.0 [facility] Comment on above: Result Comment: Use of this assay is not recommended for patients undergoing treatment with eltrombopag due to the potential for falsely elevated results. Performed By: #### A 1C, FT4, ANEU, GFR, LIPID, CBC, CMP, TSH, ADIFF #### [place] [address] BUN/Creatinine Ratio 13 ratio Normal 7-27 [facility] Comment on above: Performed By: #### A 1C, FT4, ANEU, GFR, LIPID, CBC, CMP, TSH, ADIFF #### [place] [address] Calcium [Mass/Vol] 9.4 mg/dL Normal 8.4-10.2 [facility] Comment on above: Performed By: #### A 1C, FT4, ANEU, GFR, LIPID, CBC, CMP, TSH, ADIFF #### [address] [address] Chloride [Moles/Vol] 106 mmol/L Normal 98-107 [facility] Comment on above: Performed By: #### A 1C, FT4, ANEU, GFR, LIPID, CBC, CMP, TSH, ADIFF #### [address] [address] CO2 [Moles/Vol] 27 mmol/L Normal 23-31 [facility] Comment on above: Performed By: #### A 1C, FT4, ANEU, GFR, LIPID, CBC, CMP, TSH, ADIFF #### [place] [address] Creatinine [Mass/Vol] 0.82 mg/dL Normal 0.51-0.[address] [facility] Comment on above: Performed By: #### A 1C, FT4, ANEU, GFR, LIPID, CBC, CMP, TSH, ADIFF #### [place] [address] Electrolyte Balance 10.0 mEq/L Normal 4.0-15.0 [facility] Comment on above: Performed By: #### A 1C, FT4, ANEU, GFR, LIPID, CBC, CMP, TSH, ADIFF #### [address] [address] Globulin 3.5 G/dL Normal 2.7-4.4 [facility] Comment on above: Performed By: #### A 1C, FT4, ANEU, GFR, LIPID, CBC, CMP, TSH, ADIFF #### [address] [address] Glucose [Mass/Vol] 120 mg/dL High 83-110 [facility] Comment on above: Performed By: #### A 1C, FT4, ANEU, GFR, LIPID, CBC, CMP, TSH, ADIFF #### [place] [address] Potassium [Moles/Vol] 3.5 mmol/L Normal 3.5-5.[address] [facility] Comment on above: Performed By: #### A 1C, FT4, ANEU, GFR, LIPID, CBC, CMP, TSH, ADIFF #### [address] [address] Sodium [Moles/Vol] 143 mmol/L Normal 136-145 [facility] Comment on above: Performed By: #### A 1C, FT4, ANEU, GFR, LIPID, CBC, CMP, TSH, ADIFF #### [address] [address] Total Protein 7.0 G/dL Normal 6.4-8.2 [facility] Comment on above: Performed By: #### A 1C, FT4, ANEU, GFR, LIPID, CBC, CMP, TSH, ADIFF #### [address] [address] Urea nitrogen [Mass/Vol] 11 mg/dL Normal 7-18 [facility] Comment on above: Performed By: #### A 1C, FT4, ANEU, GFR, LIPID, CBC, CMP, TSH, ADIFF #### [address] [address] FT4on 02-10-2025 Free T4 [Mass/Vol] 0.87 ng/dL Normal 0.76-1.46 [facility] Comment on above: Performed By: #### A 1C, FT4, ANEU, GFR, LIPID, CBC, CMP, TSH, ADIFF #### [address] [address] LABORATORYOrdered By: SYSTEM SYSTEM on 02-10-2025 Albumin [...] calculated value from Hemoglobin A1C and is truck sales representative of the average blood glucose level [...] 02-10-2025 Cholesterol [Mass/Vol] 115 mg/dL Normal 0-200 [facility] Comment on above: Result Comment: Chol esterol Reference Interval: Less than 200 Desirable 200-239 Borderline high risk 240 and above High risk Performed By: #### A 1C, FT4, ANEU, GFR, LIPID, CBC, CMP, TSH, ADIFF #### [id number] [place], [place] [address] Cholesterol in HDL [Mass/Vol] 35 mg/dL Low 40-60 [facility] Comment on above: Performed By: #### A 1C, FT4, ANEU, GFR, LIPID, CBC, CMP, TSH, ADIFF #### [address] [place], [place] [address] Cholesterol in LDL [Mass/Vol] 46 mg/dL Normal 0-130 [facility] Comment on above: Performed By: #### A 1C, FT4, ANEU, GFR, LIPID, CBC, CMP, TSH, ADIFF #### [facility] [address] [place], [place] [address] Triglyceride [Mass/Vol] 170 mg/dL High 0-150 [facility] Comment on above: Result Comment: Trig lyceride Reference Interval: Less than 150 Normal 150-199 Borderline high risk 200-499 High risk 500 or higher Very high risk Performed By: #### A 1C, FT4, ANEU, GFR, LIPID, CBC, CMP, TSH, ADIFF #### [address] [place], [place] [address] TSHon 02-10-2025 TSH Qn 4.13 m[IU]/L High 0.36-3.74 [facility] Comment on above: Performed By: #### A 1C, FT4, ANEU, GFR, LIPID, CBC, CMP, TSH, ADIFF #### [address] [place], [place] [address] LABORATORYOrdered By: Dhruv Cook on 01-30-2025 Glucose [Mass/Vol] 167 mg/dL High 82 - 115 mg/dL [facility] HbA1c (Bld) [Mass fraction] 6.6 % [facility] Performed By Dhruv Cook PharmD [facility] Performing Location [facility] LABORATORYOrdered By: Dhruv Cook on 01-02-2025 Glucose [Mass/Vol] 151 mg/dL High 82 - 115 mg/dL [facility] .Auto Diff10-21-2024 Basophil, Absolute 0.1 10 3/mcL Normal 0.0-0.2 [facility] Comment on above: Performed By: #### T SH, GFR, CBC, LIPID, A1C, ADIFF, CMP, ANEU, FT4 ####[address] [place], [place] [address] Basophils/100 WBC (Bld) 0.9 % Normal 0.0-2.5 [facility] Comment on above: Performed By: #### T SH, GFR, CBC, LIPID, A1C, ADIFF, CMP, ANEU, FT4 ####[address] [place], [place] [address] Eosinophil, Absolute 0.2 10 3/mcL Normal 0.0-0.7 [facility] Comment on above: Performed By: #### T SH, GFR, CBC, LIPID, A1C, ADIFF, CMP, ANEU, FT4 ####[address] [place], [place] [address] Eosinophils/100 WBC (Bld) 3.2 % Normal 0.0-7.0 [facility] Comment on above: Performed By: #### T SH, GFR, CBC, LIPID, A1C, ADIFF, CMP, ANEU, FT4 ####[address] [place], [place] [address] Lymphocyte, Absolute 1.3 10 3/mcL Normal 0.9-4.3 [facility] Comment on above: Performed By: #### T SH, GFR, CBC, LIPID, A1C, ADIFF, CMP, ANEU, FT4 ####[address] [place], [place] [address] Lymphocytes/100 WBC (Bld) 19.3 % Low 20.0-40.0 [facility] Comment on above: Performed By: #### T SH, GFR, CBC, LIPID, A1C, ADIFF, CMP, ANEU, FT4 ####[address] [place], [place] [address] Monocyte, Absolute 0.5 10 3/mcL Normal 0.1-1.4 [facility] Comment on above: Performed By: #### T SH, GFR, CBC, LIPID, A1C, ADIFF, CMP, ANEU, FT4 ####[address] [place], [place] [address] Monocytes/100 WBC (Bld) 7.6 % Normal 2.0-13.0 [facility] Comment on above: Performed By: #### T SH, GFR, CBC, LIPID, A1C, ADIFF, CMP, ANEU, FT4 ####[address] [place], [place] [address] Neutrophils/100 WBC (Bld) 69.0 % Normal 50.0-75.0 [facility] Comment on above: Performed By: #### T SH, GFR, CBC, LIPID, A1C, ADIFF, CMP, ANEU, FT4 ####[address] [place], [place] [address] .GFRon 10-21-2024 GFR 56 ml/min/1.73sqm [facility] Comment on above: Result Comment: GFR Population [...] GFR, LIPID, CBC, CMP, TSH, ADIFF #### [address] [place], [place] [address] GFR Non- 46 ml/min/1.73sqm [facility] Comment on above: Result Comment: GFR Population [...] GFR, LIPID, CBC, CMP, TSH, ADIFF #### [address] [address] .NEUABSon 10-21-2024 Neutrophil, Absolute 4.6 10 3/mcL Normal 2.3-8.1 [facility] Comment on above: Performed By: #### T SH, GFR, CBC, LIPID, A1C, ADIFF, CMP, ANEU, FT4 ####[address] [address] A1Con 10-21-2024 Glucose [Mass/Vol] 183 mg/dL Normal [facility] Comment on above: Result Comment: Eugenia mated Average Glucose calculated by equation ((28.7xA1C)-46.7) Estimated average glucose (eAG) is a calculated value from Hemoglobin A1C and is truck sales representative of the average blood glucose level in the last 2-3 month period. Normal range: less than 114 mg/dL Performed By: #### A 1C, FT4, ANEU, GFR, LIPID, CBC, CMP, TSH, ADIFF #### [address] [address] HbA1c (Bld) [Mass fraction] 8.0 % High 4.3-6.4 [facility] Comment on above: Performed By: #### A 1C, FT4, ANEU, GFR, LIPID, CBC, CMP, TSH, ADIFF #### [address] [place], [place] [address] CBCon 10-21-2024 Erythrocyte distribution width (RBC) [Ratio] 14.2 % Normal 11.5-15.5 [facility] Comment on above: Performed By: #### T SH, GFR, CBC, LIPID, A1C, ADIFF, CMP, ANEU, FT4 ####[address] [place], [place] [address] Hematocrit (Bld) [Volume fraction] 37.8 % Normal 34.0-46.0 [facility] Comment on above: Performed By: #### T SH, GFR, CBC, LIPID, A1C, ADIFF, CMP, ANEU, FT4 ####[address] [place], [place] [address] Hgb 12.2 G/dL Normal 12.0-16.0 [facility] Comment on above: Performed By: #### T SH, GFR, CBC, LIPID, A1C, ADIFF, CMP, ANEU, FT4 ####[address] [place] [id number] MCH (RBC) [Entitic mass] 30.7 pg Normal 27.0-33.0 [facility] Comment on above: Performed By: #### T SH, GFR, CBC, LIPID, A1C, ADIFF, CMP, ANEU, FT4 ####[address] [place], [place] [address] MCHC 32.2 G/dL Normal 32.0-36.0 [facility] Comment on above: Performed By: #### T SH, GFR, CBC, LIPID, A1C, ADIFF, CMP, ANEU, FT4 ####[address] [place], [place] [address] MCV (RBC) [Entitic vol] 95.2 fL Normal 80.0-99.0 [facility] Comment on above: Performed By: #### T SH, GFR, CBC, LIPID, A1C, ADIFF, CMP, ANEU, FT4 ####[address] [place], [place] [address] Platelet 216 10 3/mcL Normal 150-450 [facility] Comment on above: Performed By: #### T SH, GFR, CBC, LIPID, A1C, ADIFF, CMP, ANEU, FT4 ####[address] [place] [id number] Platelet mean volume (Bld) [Entitic vol] 7.6 fL Normal 6.6-10.5 [facility] Comment on above: Performed By: #### T SH, GFR, CBC, LIPID, A1C, ADIFF, CMP, ANEU, FT4 ####[address] [place], [place] [address] RBC 3.96 10 6/mcL Low 4.10-5.30 [facility] Comment on above: Performed By: #### T SH, GFR, CBC, LIPID, A1C, ADIFF, CMP, ANEU, FT4 ####[address] [place], [place] [address] WBC 6.6 10 3/mcL Normal 4.5-10.8 [facility] Comment on above: Performed By: #### T SH, GFR, CBC, LIPID, A1C, ADIFF, CMP, ANEU, FT4 ####[address] [address] CMPon 10-21-2024 Albumin Level 3.4 G/dL Normal 3.4-4.8 [facility] Comment on above: Performed By: #### A 1C, FT4, ANEU, GFR, LIPID, CBC, CMP, TSH, ADIFF #### [address] [address] Albumin/Globulin [Mass ratio] 1.1 {ratio} Normal 1.1-2.5 [facility] Comment on above: Performed By: #### A 1C, FT4, ANEU, GFR, LIPID, CBC, CMP, TSH, ADIFF #### [address] [address] ALP [Catalytic activity/Vol] 71 U/L Normal 40-135 [facility] Comment on above: Performed By: #### A 1C, FT4, ANEU, GFR, LIPID, CBC, CMP, TSH, ADIFF #### [address] [place], [place] [address] ALT [Catalytic activity/Vol] 12 U/L Low 14-59 [facility] Comment on above: Performed By: #### A 1C, FT4, ANEU, GFR, LIPID, CBC, CMP, TSH, ADIFF #### [address] [address] AST [Catalytic activity/Vol] 18 U/L Normal 10-40 [facility] Comment on above: Performed By: #### A 1C, FT4, ANEU, GFR, LIPID, CBC, CMP, TSH, ADIFF #### [address] [address] Bili Total 0.5 mg/dL Normal 0.2-1.0 [facility] Comment on above: Result Comment: Use of this assay is not recommended for patients undergoing treatment with eltrombopag due to the potential for falsely elevated results. Performed By: #### A 1C, FT4, ANEU, GFR, LIPID, CBC, CMP, TSH, ADIFF #### [address] [address] BUN/Creatinine Ratio 16 ratio Normal 7-27 [facility] Comment on above: Performed By: #### A 1C, FT4, ANEU, GFR, LIPID, CBC, CMP, TSH, ADIFF #### [address] [address] Calcium [Mass/Vol] 9.0 mg/dL Normal 8.4-10.2 [facility] Comment on above: Performed By: #### A 1C, FT4, ANEU, GFR, LIPID, CBC, CMP, TSH, ADIFF #### [address] [address] Chloride [Moles/Vol] 106 mmol/L Normal 98-107 [facility] Comment on above: Performed By: #### A 1C, FT4, ANEU, GFR, LIPID, CBC, CMP, TSH, ADIFF #### [address] [address] CO2 [Moles/Vol] 26 mmol/L Normal 23-31 [facility] Comment on above: Performed By: #### A 1C, FT4, ANEU, GFR, LIPID, CBC, CMP, TSH, ADIFF #### [address] [address] Creatinine [Mass/Vol] 1.13 mg/dL High 0.55-1.[address] [facility] Comment on above: Result Comment: Test ing performed on Siemens Dimension EXL analyzer using a modified kinetic Eusebio technique. Performed By: #### A 1C, FT4, ANEU, GFR, LIPID, CBC, CMP, TSH, ADIFF #### [address] [address] Electrolyte Balance 11.0 mEq/L Normal 4.0-15.0 [facility] Comment on above: Performed By: #### A 1C, FT4, ANEU, GFR, LIPID, CBC, CMP, TSH, ADIFF #### [address] [address] Globulin 3.0 G/dL Normal [facility] Comment on above: Performed By: #### A 1C, FT4, ANEU, GFR, LIPID, CBC, CMP, TSH, ADIFF #### [address] [address] Glucose [Mass/Vol] 162 mg/dL High 83-110 [facility] Comment on above: Performed By: #### A 1C, FT4, ANEU, GFR, LIPID, CBC, CMP, TSH, ADIFF #### [address] [address] Potassium [Moles/Vol] 4.0 mmol/L Normal 3.5-5.[address] [facility] Comment on above: Performed By: #### A 1C, FT4, ANEU, GFR, LIPID, CBC, CMP, TSH, ADIFF #### [address] [address] Sodium [Moles/Vol] 143 mmol/L Normal 136-145 [facility] Comment on above: Performed By: #### A 1C, FT4, ANEU, GFR, LIPID, CBC, CMP, TSH, ADIFF #### [address] [address] Total Protein 6.4 G/dL Normal 6.4-8.2 [facility] Comment on above: Performed By: #### A 1C, FT4, ANEU, GFR, LIPID, CBC, CMP, TSH, ADIFF #### [address] [address] Urea nitrogen [Mass/Vol] 18 mg/dL Normal 7-18 [facility] Comment on above: Performed By: #### A 1C, FT4, ANEU, GFR, LIPID, CBC, CMP, TSH, ADIFF #### [address] [place], [place] [address] FT4on 10-21-2024 Free T4 [Mass/Vol] 0.97 ng/dL Normal 0.76-1.46 [facility] Comment on above: Performed By: #### A 1C, FT4, ANEU, GFR, LIPID, CBC, CMP, TSH, ADIFF #### [address] [address] LABORATORYOrdered By: SYSTEM SYSTEM on 10-21-2024 Albumin [...] calculated value from Hemoglobin A1C and is truck sales representative of the average blood glucose level [...] 10-21-2024 Cholesterol [Mass/Vol] 149 mg/dL Normal 0-200 [facility] Comment on above: Result Comment: Chol esterol Reference Interval: Less than 200 Desirable 200-239 Borderline high risk 240 and above High risk Performed By: #### A 1C, FT4, ANEU, GFR, LIPID, CBC, CMP, TSH, ADIFF #### [address] [address] Cholesterol in HDL [Mass/Vol] 38 mg/dL Low 40-60 [facility] Comment on above: Performed By: #### A 1C, FT4, ANEU, GFR, LIPID, CBC, CMP, TSH, ADIFF #### [address] [place], [place] [address] Cholesterol in LDL [Mass/Vol] 75 mg/dL Normal 0-130 [facility] Comment on above: Performed By: #### A 1C, FT4, ANEU, GFR, LIPID, CBC, CMP, TSH, ADIFF #### [address] [place], [place] [address] Triglyceride [Mass/Vol] 181 mg/dL High 0-150 [facility] Comment on above: Result Comment: Trig lyceride Reference Interval: Less than 150 Normal 150-199 Borderline high risk 200-499 High risk 500 or higher Very high risk Performed By: #### A 1C, FT4, ANEU, GFR, LIPID, CBC, CMP, TSH, ADIFF #### [address] [place], [place] [address] TSHon 10-21-2024 TSH Qn 1.72 m[IU]/L Normal 0.36-3.74 [facility] Comment on above: Performed By: #### A 1C, FT4, ANEU, GFR, LIPID, CBC, CMP, TSH, ADIFF #### [address] [address] LABORATORYOrdered By: SYSTEM SYSTEM on 07-10-2024 Albumin [...] calculated value from Hemoglobin A1C and is truck sales representative of the average blood glucose level [...] risk .GFRon 04-03-2024 GFR 60 ml/min/1.73sqm Normal [facility] ([place]) Comment on above: Result Comment: GFR Population [...] FR, A1C, CMP, LIPID, TSH #### [address] [address] GFR Non- 50 ml/min/1.73sqm Normal [facility] ([place]) Comment on above: Result Comment: GFR Population [...] G FR, A1C, CMP, LIPID, TSH #### [address] [address] A1Con 04-03-2024 HbA1c (Bld) [Mass fraction] 7.9 % High 4.3-6.4 [facility] ([place]) Comment on above: Performed By: #### G FR, A1C, CMP, LIPID, TSH #### [address] [address] CMPon 04-03-2024 Albumin Level 3.6 G/dL Normal 3.4-4.8 [facility] ([place]) Comment on above: Performed By: #### G FR, A1C, CMP, LIPID, TSH #### [address] [address] Albumin/Globulin [Mass ratio] 1.1 {ratio} Normal 1.1-2.5 [facility] ([place]) Comment on above: Performed By: #### G FR, A1C, CMP, LIPID, TSH #### [address] [address] ALP [Catalytic activity/Vol] 101 U/L Normal 40-135 [facility] ([place]) Comment on above: Performed By: #### G FR, A1C, CMP, LIPID, TSH #### [address] [address] ALT [Catalytic activity/Vol] 36 U/L Normal 14-59 [facility] ([place] Comment on above: Performed By: #### G FR, A1C, CMP, LIPID, TSH #### [address] [address] AST [Catalytic activity/Vol] 18 U/L Normal 10-40 [facility] ([place] Comment on above: Performed By: #### G FR, A1C, CMP, LIPID, TSH #### [address] [address] Bili Total 0.6 mg/dL Normal 0.2-1.0 [facility] ([place] Comment on above: Result Comment: Use of this assay is not recommended for patients undergoing treatment with eltrombopag due to the potential for falsely elevated results. Performed By: #### G FR, A1C, CMP, LIPID, TSH #### [address] [address] BUN/Creatinine Ratio 16 ratio Normal 7-27 [facility] ([place]) Comment on above: Performed By: #### G FR, A1C, CMP, LIPID, TSH #### [address] [address] Calcium [Mass/Vol] 8.8 mg/dL Normal 8.4-10.2 [facility] ([place]) Comment on above: Performed By: #### G FR, A1C, CMP, LIPID, TSH #### [address] [address] Chloride [Moles/Vol] 104 mmol/L Normal 98-107 [facility] ([place]) Comment on above: Performed By: #### G FR, A1C, CMP, LIPID, TSH #### [address] [address] CO2 [Moles/Vol] 31 mmol/L Normal 23-31 [facility] ([place] Comment on above: Performed By: #### G FR, A1C, CMP, LIPID, TSH #### [address] [address] Creatinine [Mass/Vol] 1.06 mg/dL High 0.55-1.02 [facility] ([place] Comment on above: Performed By: #### G FR, A1C, CMP, LIPID, TSH #### [address] [address] Electrolyte Balance 8.0 mEq/L Normal 4.0-15.0 [facility] ([place]) Comment on above: Performed By: #### G FR, A1C, CMP, LIPID, TSH #### [address] [address] Globulin 3.2 G/dL Normal [facility] ([place]) Comment on above: Performed By: #### G FR, A1C, CMP, LIPID, TSH #### [address] [address] Glucose [Mass/Vol] 167 mg/dL High 83-110 [facility] ([place] Comment on above: Performed By: #### G FR, A1C, CMP, LIPID, TSH #### [address] [address] Potassium [Moles/Vol] 4.5 mmol/L Normal 3.5-5.1 [facility] ([place] Comment on above: Performed By: #### G FR, A1C, CMP, LIPID, TSH #### [address] [address] Sodium [Moles/Vol] 143 mmol/L Normal 136-145 [facility] ([place]) Comment on above: Performed By: #### G FR, A1C, CMP, LIPID, TSH #### [address] [address] Total Protein 6.8 G/dL Normal 6.4-8.2 [facility] ([place]) Comment on above: Performed By: #### G FR, A1C, CMP, LIPID, TSH #### [address] [address] Urea nitrogen [Mass/Vol] 17 mg/dL Normal 7-18 [facility] ([place]) Comment on above: Performed By: #### G FR, A1C, CMP, LIPID, TSH #### [address] [address] LABORATORYOrdered By: SYSTEM SYSTEM on 04-03-2024 Albumin [...] 04-03-2024 Cholesterol [Mass/Vol] 167 mg/dL Normal 0-200 [facility] ([place]) Comment on above: Result Comment: Chol esterol Reference Interval: Less than 200 Desirable 200-239 Borderline high risk 240 and above High risk Performed By: #### G FR, A1C, CMP, LIPID, TSH #### [address] [address] Cholesterol in HDL [Mass/Vol] 40 mg/dL Normal 40-60 [facility] ([place] Comment on above: Performed By: #### G FR, A1C, CMP, LIPID, TSH #### [address] [address] Cholesterol in LDL [Mass/Vol] 77 mg/dL Normal 0-130 [facility] ([place]) Comment on above: Performed By: #### G FR, A1C, CMP, LIPID, TSH #### [address] [address] Triglyceride [Mass/Vol] 251 mg/dL High 0-150 [facility] ([place]) Comment on above: Result Comment: Trig lyceride Reference Interval: Less than 150 Normal 150-199 Borderline high risk 200-499 High risk 500 or higher Very high risk Performed By: #### G FR, A1C, CMP, LIPID, TSH #### [address] [address] TSHon 04-03-2024 TSH Qn 2.17 m[IU]/L Normal 0.36-3.74 [facility] ([place]) Comment on above: Performed By: #### G FR, A1C, CMP, LIPID, TSH #### [address] [address] .Auto Diffon 01-10-2024 Basophil, Absolute 0.1 10 3/mcL Normal 0.0-0.2 [facility] ([place]) Comment on above: Performed By: #### G FR, A1C, CMP, LIPID, TSH #### [address] [address] Basophils/100 WBC (Bld) 1.0 % Normal 0.0-2.5 [facility] ([place]) Comment on above: Performed By: #### G FR, A1C, CMP, LIPID, TSH #### [address] [address] Eosinophil, Absolute 0.4 10 3/mcL Normal 0.0-0.4 [facility] ([place]) Comment on above: Performed By: #### G FR, A1C, CMP, LIPID, TSH #### [address] [address] Eosinophils/100 WBC (Bld) 6.6 % Normal 0.0-7.0 [facility] ([place]) Comment on above: Performed By: #### G FR, A1C, CMP, LIPID, TSH #### [address] [address] Lymphocyte, Absolute 1.1 10 3/mcL Normal 0.8-3.9 [facility] ([place]) Comment on above: Performed By: #### G FR, A1C, CMP, LIPID, TSH #### [address] [address] Lymphocytes/100 WBC (Bld) 18.4 % Normal 10.0-50.0 [facility] ([place]) Comment on above: Performed By: #### G FR, A1C, CMP, LIPID, TSH #### [address] [address] Monocyte, Absolute 0.5 10 3/mcL Normal 0.2-1.0 [facility] ([place]) Comment on above: Performed By: #### G FR, A1C, CMP, LIPID, TSH #### [address] [address] Monocytes/100 WBC (Bld) 8.4 % Normal 1.7-13.0 [facility] ([place]) Comment on above: Performed By: #### G FR, A1C, CMP, LIPID, TSH #### [address] [address] Neutrophils/100 WBC (Bld) 65.6 % Normal 37.0-80.0 [facility] ([place]) Comment on above: Performed By: #### G FR, A1C, CMP, LIPID, TSH #### [address] [address] .GFRon 01-10-2024 GFR 57 ml/min/1.73sqm Normal [facility] ([place]) Comment on above: Result Comment: GFR Population [...] G FR, A1C, CMP, LIPID, TSH #### [address] [address] GFR Non- 47 ml/min/1.73sqm Normal [facility] ([place]) Comment on above: Result Comment: GFR Population [...] FR, A1C, CMP, LIPID, TSH #### Lali [address] [address] .NEUABSon 01-10-2024 Neutrophil, Absolute 3.9 10 3/mcL Normal 2.9-6.2 [facility] ([place]) Comment on above: Performed By: #### G FR, A1C, CMP, LIPID, TSH #### [address] [address] A1Con 01-10-2024 HbA1c (Bld) [Mass fraction] 8.0 % High 4.3-6.4 [facility] ([place] Comment on above: Performed By: #### G FR, A1C, CMP, LIPID, TSH #### [place] [id number] CBCon 01-10-2024 Erythrocyte distribution width (RBC) [Ratio] 15.8 % High 11.5-14.5 [facility] ([place] Comment on above: Performed By: #### G FR, A1C, CMP, LIPID, TSH #### [place] [address] Hematocrit (Bld) [Volume fraction] 33.2 % Low 37.0-47.0 [facility] ([place] Comment on above: Performed By: #### G FR, A1C, CMP, LIPID, TSH #### [place] [address] Hgb 10.9 G/dL Low 12.0-16.0 [facility] ([place] Comment on above: Performed By: #### G FR, A1C, CMP, LIPID, TSH #### [place] [address] MCH (RBC) [Entitic mass] 29.8 pg Normal 27.0-31.2 [facility] ([place] Comment on above: Performed By: #### G FR, A1C, CMP, LIPID, TSH #### [place] [address] MCHC 32.8 G/dL Low 33.0-37.0 [facility] ([place] Comment on above: Performed By: #### G FR, A1C, CMP, LIPID, TSH #### [place] [address] MCV (RBC) [Entitic vol] 90.8 fL Normal 80.0-94.0 [facility] ([place] Comment on above: Performed By: #### G FR, A1C, CMP, LIPID, TSH #### [address] [address] Platelet 202 10 3/mcL Normal 130-400 [facility] ([place] Comment on above: Performed By: #### G FR, A1C, CMP, LIPID, TSH #### [address] [address] Platelet mean volume (Bld) [Entitic vol] 7.6 fL Normal 7.4-10.4 [facility] ([place] Comment on above: Performed By: #### G FR, A1C, CMP, LIPID, TSH #### [address] [address] RBC 3.65 10 6/mcL Low 4.20-5.40 [facility] ([place] Comment on above: Performed By: #### G FR, A1C, CMP, LIPID, TSH #### [address] [address] WBC 5.9 10 3/mcL Normal 4.6-10.8 [facility] ([place] Comment on above: Performed By: #### G FR, A1C, CMP, LIPID, TSH #### [address] [address] CMPon 01-10-2024 Albumin Level 3.5 G/dL Normal 3.4-4.8 [facility] ([place]) Comment on above: Performed By: #### G FR, A1C, CMP, LIPID, TSH #### [address] [address] Albumin/Globulin [Mass ratio] 1.0 {ratio} Low 1.1-2.5 [facility] ([place]) Comment on above: Performed By: #### G FR, A1C, CMP, LIPID, TSH #### [address] [address] ALP [Catalytic activity/Vol] 101 U/L Normal 40-135 [facility] ([place]) Comment on above: Performed By: #### G FR, A1C, CMP, LIPID, TSH #### [address] [address] ALT [Catalytic activity/Vol] 21 U/L Normal 14-59 [facility] ([place]) Comment on above: Performed By: #### G FR, A1C, CMP, LIPID, TSH #### [address] [address] AST [Catalytic activity/Vol] 17 U/L Normal 10-40 [facility] ([place]) Comment on above: Performed By: #### G FR, A1C, CMP, LIPID, TSH #### [address] [address] Bili Total 0.6 mg/dL Normal 0.2-1.0 [facility] ([place]) Comment on above: Result Comment: Use of this assay is not recommended for patients undergoing treatment with eltrombopag due to the potential for falsely elevated results. Performed By: #### G FR, A1C, CMP, LIPID, TSH #### [address] [id number] BUN/Creatinine Ratio 18 ratio Normal 7-27 [facility] ([place]) Comment on above: Performed By: #### G FR, A1C, CMP, LIPID, TSH #### [address] [address] Calcium [Mass/Vol] 8.8 mg/dL Normal 8.4-10.2 [facility] ([place]) Comment on above: Performed By: #### G FR, A1C, CMP, LIPID, TSH #### [address] [address] Chloride [Moles/Vol] 103 mmol/L Normal 98-107 [facility] ([place]) Comment on above: Performed By: #### G FR, A1C, CMP, LIPID, TSH #### [address] [address] CO2 [Moles/Vol] 26 mmol/L Normal 23-31 [facility] ([place]) Comment on above: Performed By: #### G FR, A1C, CMP, LIPID, TSH #### [address] [address] Creatinine [Mass/Vol] 1.11 mg/dL High 0.55-1.02 [facility] ([place]) Comment on above: Performed By: #### G FR, A1C, CMP, LIPID, TSH #### [address] [address] Electrolyte Balance 11.0 mEq/L Normal 4.0-15.0 [facility] ([place]) Comment on above: Performed By: #### G FR, A1C, CMP, LIPID, TSH #### [address] [address] Globulin 3.4 G/dL Normal [facility] ([place]) Comment on above: Performed By: #### G FR, A1C, CMP, LIPID, TSH #### [address] [address] Glucose [Mass/Vol] 163 mg/dL High 83-110 [facility] ([place]) Comment on above: Performed By: #### G FR, A1C, CMP, LIPID, TSH #### [address] [address] Potassium [Moles/Vol] 3.9 mmol/L Normal 3.5-5.1 [facility] ([place] Comment on above: Performed By: #### G FR, A1C, CMP, LIPID, TSH #### [address] [address] Sodium [Moles/Vol] 140 mmol/L Normal 136-145 [facility] ([place]) Comment on above: Performed By: #### G FR, A1C, CMP, LIPID, TSH #### [address] [address] Total Protein 6.9 G/dL Normal 6.4-8.2 [facility] ([place]) Comment on above: Performed By: #### G FR, A1C, CMP, LIPID, TSH #### [address] [address] Urea nitrogen [Mass/Vol] 20 mg/dL High 7-18 [facility] ([place]) Comment on above: Performed By: #### G FR, A1C, CMP, LIPID, TSH #### [address] [place], [place] [address] FT4on 01-10-2024 Free T4 [Mass/Vol] 0.87 ng/dL Normal 0.76-1.46 [facility] ([place]) Comment on above: Performed By: #### G FR, A1C, CMP, LIPID, TSH #### [place] [id number] [place], [place] [address] LABORATORYOrdered By: SYSTEM SYSTEM on 01-10-2024 Albumin [...] 01-10-2024 Cholesterol [Mass/Vol] 165 mg/dL Normal 0-200 [facility] ([place]) Comment on above: Result Comment: Chol esterol Reference Interval: Less than 200 Desirable 200-239 Borderline high risk 240 and above High risk Performed By: #### G FR, A1C, CMP, LIPID, TSH #### [address] [address] Cholesterol in HDL [Mass/Vol] 39 mg/dL Low 40-60 [facility] ([place] Comment on above: Performed By: #### G FR, A1C, CMP, LIPID, TSH #### [address] [address] Cholesterol in LDL [Mass/Vol] 86 mg/dL Normal 0-130 [facility] ([place] Comment on above: Performed By: #### G FR, A1C, CMP, LIPID, TSH #### [address] [address] Triglyceride [Mass/Vol] 202 mg/dL High 0-150 [facility] ([place]) Comment on above: Result Comment: Trig lyceride Reference Interval: Less than 150 Normal 150-199 Borderline high risk 200-499 High risk 500 or higher Very high risk Performed By: #### G FR, A1C, CMP, LIPID, TSH #### [address] [address] TSHon 01-10-2024 TSH Qn 2.46 m[IU]/L Normal 0.36-3.74 [facility] ([place]) Comment on above: Performed By: #### G FR, A1C, CMP, LIPID, TSH #### [address] [address] .Auto Diffon 09-18-2023 Basophil, Absolute 0.0 10 3/mcL Normal 0.0-0.2 [facility] ([place]) Comment on above: Performed By: #### T SH, ANEU, CBC, ADIFF, A1C, GFR, CMP, URIC, FT4, LIPID #### [address] [address] Basophils/100 WBC (Bld) 0.9 % Normal 0.0-2.5 [facility] ([place] Comment on above: Performed By: #### T SH, ANEU, CBC, ADIFF, A1C, GFR, CMP, URIC, FT4, LIPID #### [address] [address] Eosinophil, Absolute 0.2 10 3/mcL Normal 0.0-0.4 [facility] ([place]) Comment on above: Performed By: #### T SH, ANEU, CBC, ADIFF, A1C, GFR, CMP, URIC, FT4, LIPID #### [address] [address] Eosinophils/100 WBC (Bld) 3.7 % Normal 0.0-7.0 [facility] ([place] Comment on above: Performed By: #### T SH, ANEU, CBC, ADIFF, A1C, GFR, CMP, URIC, FT4, LIPID #### [address] [address] Lymphocyte, Absolute 1.6 10 3/mcL Normal 0.8-3.9 [facility] ([place]) Comment on above: Performed By: #### T SH, ANEU, CBC, ADIFF, A1C, GFR, CMP, URIC, FT4, LIPID #### [address] [address] Lymphocytes/100 WBC (Bld) 28.6 % Normal 10.0-50.0 [facility] ([place] Comment on above: Performed By: #### T SH, ANEU, CBC, ADIFF, A1C, GFR, CMP, URIC, FT4, LIPID #### [address] [address] Monocyte, Absolute 0.4 10 3/mcL Normal 0.2-1.0 [facility] ([place]) Comment on above: Performed By: #### T SH, ANEU, CBC, ADIFF, A1C, GFR, CMP, URIC, FT4, LIPID #### [address] [address] Monocytes/100 WBC (Bld) 7.9 % Normal 1.7-13.0 [facility] ([place] Comment on above: Performed By: #### T SH, ANEU, CBC, ADIFF, A1C, GFR, CMP, URIC, FT4, LIPID #### [address] [address] Neutrophils/100 WBC (Bld) 58.9 % Normal 37.0-80.0 [facility] ([place] Comment on above: Performed By: #### T SH, ANEU, CBC, ADIFF, A1C, GFR, CMP, URIC, FT4, LIPID #### [address] [address] .GFRon 09-18-2023 GFR 52 ml/min/1.73sqm Normal [facility] ([place] Comment on above: Result Comment: GFR Population [...] G FR, A1C, CMP, LIPID, TSH #### [address] [address] GFR Non- 43 ml/min/1.73sqm Normal [facility] ([place] Comment on above: Result Comment: GFR Population [...] G FR, A1C, CMP, LIPID, TSH #### [address] [address] .NEUABSon 09-18-2023 Neutrophil, Absolute 3.3 10 3/mcL Normal 2.9-6.2 [facility] ([place]) Comment on above: Performed By: #### T SH, ANEU, CBC, ADIFF, A1C, GFR, CMP, URIC, FT4, LIPID #### [address] [address] A1Con 09-18-2023 HbA1c (Bld) [Mass fraction] 7.5 % High 4.3-6.4 [facility] ([place] Comment on above: Performed By: #### G FR, A1C, CMP, LIPID, TSH #### [address] [address] CBCon 09-18-2023 Erythrocyte distribution width (RBC) [Ratio] 14.7 % High 11.5-14.5 [facility] ([place] Comment on above: Performed By: #### T SH, ANEU, CBC, ADIFF, A1C, GFR, CMP, URIC, FT4, LIPID #### [address] [address] Hematocrit (Bld) [Volume fraction] 34.5 % Low 37.0-47.0 [facility] ([place] Comment on above: Performed By: #### T SH, ANEU, CBC, ADIFF, A1C, GFR, CMP, URIC, FT4, LIPID #### [address] [address] Hgb 11.2 G/dL Low 12.0-16.0 [facility] ([place] Comment on above: Performed By: #### T SH, ANEU, CBC, ADIFF, A1C, GFR, CMP, URIC, FT4, LIPID #### [address] [address] MCH (RBC) [Entitic mass] 30.3 pg Normal 27.0-31.2 [facility] ([place] Comment on above: Performed By: #### T SH, ANEU, CBC, ADIFF, A1C, GFR, CMP, URIC, FT4, LIPID #### [address] [address] MCHC 32.6 G/dL Low 33.0-37.0 [facility] ([place] Comment on above: Performed By: #### T SH, ANEU, CBC, ADIFF, A1C, GFR, CMP, URIC, FT4, LIPID #### [address] [address] MCV (RBC) [Entitic vol] 93.1 fL Normal 80.0-94.0 [facility] ([place] Comment on above: Performed By: #### T SH, ANEU, CBC, ADIFF, A1C, GFR, CMP, URIC, FT4, LIPID #### [address] [address] Platelet 202 10 3/mcL Normal 130-400 [facility] ([place] Comment on above: Performed By: #### T SH, ANEU, CBC, ADIFF, A1C, GFR, CMP, URIC, FT4, LIPID #### [address] [address] Platelet mean volume (Bld) [Entitic vol] 7.6 fL Normal 7.4-10.4 [facility] ([place] Comment on above: Performed By: #### T SH, ANEU, CBC, ADIFF, A1C, GFR, CMP, URIC, FT4, LIPID #### [address] [address] RBC 3.70 10 6/mcL Low 4.20-5.40 [facility] ([place] Comment on above: Performed By: #### T SH, ANEU, CBC, ADIFF, A1C, GFR, CMP, URIC, FT4, LIPID #### [address] [address] WBC 5.6 10 3/mcL Normal 4.6-10.8 [facility] ([place] Comment on above: Performed By: #### T SH, ANEU, CBC, ADIFF, A1C, GFR, CMP, URIC, FT4, LIPID #### [address] [address] CMPon 09-18-2023 Albumin Level 3.7 G/dL Normal 3.4-4.8 [facility] ([place] Comment on above: Performed By: #### G FR, A1C, CMP, LIPID, TSH #### [address] [address] Albumin/Globulin [Mass ratio] 1.2 {ratio} Normal 1.1-2.5 [facility] ([place] Comment on above: Performed By: #### G FR, A1C, CMP, LIPID, TSH #### [address] [address] ALP [Catalytic activity/Vol] 91 U/L Normal 40-135 [facility] ([place] Comment on above: Performed By: #### G FR, A1C, CMP, LIPID, TSH #### [address] [address] ALT [Catalytic activity/Vol] 15 U/L Normal 14-59 [facility] ([place] Comment on above: Performed By: #### G FR, A1C, CMP, LIPID, TSH #### [address] [address] AST [Catalytic activity/Vol] 19 U/L Normal 10-40 [facility] ([place] Comment on above: Performed By: #### G FR, A1C, CMP, LIPID, TSH #### [address] [address] Bili Total 0.3 mg/dL Normal 0.2-1.0 [facility] ([place] Comment on above: Result Comment: Use of this assay is not recommended for patients undergoing treatment with eltrombopag due to the potential for falsely elevated results. Performed By: #### G FR, A1C, CMP, LIPID, TSH #### [address] [address] BUN/Creatinine Ratio 13 ratio Normal 7-27 [facility] ([place]) Comment on above: Performed By: #### G FR, A1C, CMP, LIPID, TSH #### [address] [address] Calcium [Mass/Vol] 9.4 mg/dL Normal 8.4-10.2 [facility] ([place] Comment on above: Performed By: #### G FR, A1C, CMP, LIPID, TSH #### [address] [address] Chloride [Moles/Vol] 105 mmol/L Normal 98-107 [facility] ([place]) Comment on above: Performed By: #### G FR, A1C, CMP, LIPID, TSH #### [address] [address] CO2 [Moles/Vol] 27 mmol/L Normal 23-31 [facility] ([place] Comment on above: Performed By: #### G FR, A1C, CMP, LIPID, TSH #### [address] [address] Creatinine [Mass/Vol] 1.21 mg/dL High 0.55-1.02 [facility] ([place] Comment on above: Performed By: #### G FR, A1C, CMP, LIPID, TSH #### [address] [address] Electrolyte Balance 11.0 mEq/L Normal 4.0-15.0 [facility] ([place]) Comment on above: Performed By: #### G FR, A1C, CMP, LIPID, TSH #### [address] [address] Globulin 3.1 G/dL Normal [facility] ([place] Comment on above: Performed By: #### G FR, A1C, CMP, LIPID, TSH #### [place] [id number] Glucose [Mass/Vol] 150 mg/dL High 83-110 [facility] ([place] Comment on above: Performed By: #### G FR, A1C, CMP, LIPID, TSH #### [place] [id number] Potassium [Moles/Vol] 3.9 mmol/L Normal 3.5-5.1 [facility] [place] Comment on above: Performed By: #### G FR, A1C, CMP, LIPID, TSH #### [place] [id number] Sodium [Moles/Vol] 143 mmol/L Normal 136-145 [facility] ([place] Comment on above: Performed By: #### G FR, A1C, CMP, LIPID, TSH #### [address] [address] Total Protein 6.8 G/dL Normal 6.4-8.2 [facility] ([place] Comment on above: Performed By: #### G FR, A1C, CMP, LIPID, TSH #### [place] [id number] Urea nitrogen [Mass/Vol] 16 mg/dL Normal 7-18 [facility] ([place] Comment on above: Performed By: #### G FR, A1C, CMP, LIPID, TSH #### [place] [id number] FT4on 09-18-2023 Free T4 [Mass/Vol] 0.93 ng/dL Normal 0.76-1.46 [facility] ([place] Comment on above: Performed By: #### T SH, ANEU, CBC, ADIFF, A1C, GFR, CMP, URIC, FT4, LIPID #### [place] [id number] [place], [place] [address] LABORATORYOrdered By: SYSTEM SYSTEM on 09-18-2023 Albumin [...] 09-18-2023 Cholesterol [Mass/Vol] 156 mg/dL Normal 0-200 [facility] ([place] Comment on above: Result Comment: Chol esterol Reference Interval: Less than 200 Desirable 200-239 Borderline high risk 240 and above High risk Performed By: #### G FR, A1C, CMP, LIPID, TSH #### [address] [address] Cholesterol in HDL [Mass/Vol] 45 mg/dL Normal 40-60 [facility] ([place] Comment on above: Performed By: #### G FR, A1C, CMP, LIPID, TSH #### [address] [address] Cholesterol in LDL [Mass/Vol] 74 mg/dL Normal 0-130 [facility] ([place] Comment on above: Performed By: #### G FR, A1C, CMP, LIPID, TSH #### [address] [address] Triglyceride [Mass/Vol] 184 mg/dL High 0-150 [facility] ([place] Comment on above: Result Comment: Trig lyceride Reference Interval: Less than 150 Normal 150-199 Borderline high risk 200-499 High risk 500 or higher Very high risk Performed By: #### G FR, A1C, CMP, LIPID, TSH #### Lali [address] [address] TSHon 09-18-2023 TSH Qn 0.78 m[IU]/L Normal 0.36-3.74 [facility] ([place] Comment on above: Performed By: #### T SH, ANEU, CBC, ADIFF, A1C, GFR, CMP, URIC, FT4, LIPID #### [place] [address] URICon 09-18-2023 Uric Acid Lvl 4.8 mg/dL Normal 2.6-6.2 [facility] ([place] Comment on above: Performed By: #### G FR, A1C, CMP, LIPID, TSH #### [address] [address] .GFRon 09-11-2023 GFR 57 ml/min/1.73sqm Normal [facility] ([place] Comment on above: Result Comment: GFR Population [...] G FR, A1C, CMP, LIPID, TSH #### [address] [address] GFR Non- 47 ml/min/1.73sqm Normal [facility] ([place] Comment on above: Result Comment: GFR Population [...] G FR, A1C, CMP, LIPID, TSH #### [address] [address] BMPon 09-11-2023 BUN/Creatinine Ratio 10 ratio Normal 7-27 [facility] ([place] Comment on above: Performed By: #### G FR, A1C, CMP, LIPID, TSH #### [address] [address] Calcium [Mass/Vol] 9.2 mg/dL Normal 8.4-10.2 [facility] ([place] Comment on above: Performed By: #### G FR, A1C, CMP, LIPID, TSH #### [address] [address] Chloride [Moles/Vol] 104 mmol/L Normal 98-107 [facility] ([place] Comment on above: Performed By: #### G FR, A1C, CMP, LIPID, TSH #### [address] [address] CO2 [Moles/Vol] 29 mmol/L Normal 23-31 [facility] ([place] Comment on above: Performed By: #### G FR, A1C, CMP, LIPID, TSH #### [address] [address] Creatinine [Mass/Vol] 1.12 mg/dL High 0.55-1.02 [facility] ([place] Comment on above: Performed By: #### G FR, A1C, CMP, LIPID, TSH #### [address] [address] Electrolyte Balance 9.0 mEq/L Normal 4.0-15.0 [facility] ([place]) Comment on above: Performed By: #### G FR, A1C, CMP, LIPID, TSH #### [address] [address] Glucose [Mass/Vol] 160 mg/dL High 83-110 [facility] ([place] Comment on above: Performed By: #### G FR, A1C, CMP, LIPID, TSH #### [address] [address] Potassium [Moles/Vol] 4.0 mmol/L Normal 3.5-5.1 [facility] [place] Comment on above: Performed By: #### G FR, A1C, CMP, LIPID, TSH #### [address] [address] Sodium [Moles/Vol] 142 mmol/L Normal 136-145 [facility] ([place] Comment on above: Performed By: #### G FR, A1C, CMP, LIPID, TSH #### [address] [address] Urea nitrogen [Mass/Vol] 11 mg/dL Normal 7-18 [facility] ([place] Comment on above: Performed By: #### G FR, A1C, CMP, LIPID, TSH #### [address] [address] .Auto Diffon 07-03-2023 Basophil, Absolute 0.0 10 3/mcL Normal 0.0-0.2 [facility] ([place] Comment on above: Performed By: #### G FR, A1C, CMP, LIPID, TSH #### [address] [address] Basophils/100 WBC (Bld) 0.6 % Normal 0.0-2.5 [facility] ([place] Comment on above: Performed By: #### G FR, A1C, CMP, LIPID, TSH #### [address] [address] Eosinophil, Absolute 0.3 10 3/mcL Normal 0.0-0.4 [facility] ([place] Comment on above: Performed By: #### G FR, A1C, CMP, LIPID, TSH #### [address] [address] Eosinophils/100 WBC (Bld) 5.2 % Normal 0.0-7.0 [facility] ([place] Comment on above: Performed By: #### G FR, A1C, CMP, LIPID, TSH #### [address] [address] Lymphocyte, Absolute 1.5 10 3/mcL Normal 0.8-3.9 [facility] ([place] Comment on above: Performed By: #### G FR, A1C, CMP, LIPID, TSH #### [address] [address] Lymphocytes/100 WBC (Bld) 23.3 % Normal 10.0-50.0 [facility] ([place] Comment on above: Performed By: #### G FR, A1C, CMP, LIPID, TSH #### [address] [address] Monocyte, Absolute 0.7 10 3/mcL Normal 0.2-1.0 [facility] ([place] Comment on above: Performed By: #### G FR, A1C, CMP, LIPID, TSH #### [address] [address] Monocytes/100 WBC (Bld) 11.3 % Normal 1.7-13.0 [facility] ([place] Comment on above: Performed By: #### G FR, A1C, CMP, LIPID, TSH #### [address] [address] Neutrophils/100 WBC (Bld) 59.6 % Normal 37.0-80.0 [facility] ([place] Comment on above: Performed By: #### G FR, A1C, CMP, LIPID, TSH #### [address] [address] .GFRon 07-03-2023 GFR Non- 37 ml/min/1.73sqm Normal [facility] ([place] Comment on above: Result Comment: GFR Population [...] G FR, A1C, CMP, LIPID, TSH #### [address] [address] GFR 45 ml/min/1.73sqm Normal [facility] ([place] Comment on above: Result Comment: GFR Population [...] G FR, A1C, CMP, LIPID, TSH #### [address] [address] .NEUABSon 07-03-2023 Neutrophil, Absolute 3.8 10 3/mcL Normal 2.9-6.2 [facility] ([place] Comment on above: Performed By: #### G FR, A1C, CMP, LIPID, TSH #### [address] [address] A1Con 07-03-2023 HbA1c (Bld) [Mass fraction] 7.3 % High 4.3-6.4 [facility] ([place] Comment on above: Performed By: #### G FR, A1C, CMP, LIPID, TSH #### [address] [address] CBCon 07-03-2023 Erythrocyte distribution width (RBC) [Ratio] 15.3 % High 11.5-14.5 [facility] ([place] Comment on above: Performed By: #### G FR, A1C, CMP, LIPID, TSH #### [address] [address] Hematocrit (Bld) [Volume fraction] 33.4 % Low 37.0-47.0 [facility] ([place] Comment on above: Performed By: #### G FR, A1C, CMP, LIPID, TSH #### [place] [id number] Hgb 11.0 G/dL Low 12.0-16.0 [facility] ([place] Comment on above: Performed By: #### G FR, A1C, CMP, LIPID, TSH #### [place] [id number] MCH (RBC) [Entitic mass] 31.0 pg Normal 27.0-31.2 [facility] ([place] Comment on above: Performed By: #### G FR, A1C, CMP, LIPID, TSH #### [place] [id number] MCHC 33.0 G/dL Normal 33.0-37.0 [facility] ([place] Comment on above: Performed By: #### G FR, A1C, CMP, LIPID, TSH #### [address] [address] MCV (RBC) [Entitic vol] 93.9 fL Normal 80.0-94.0 [facility] ([place] Comment on above: Performed By: #### G FR, A1C, CMP, LIPID, TSH #### [place] [id number] Platelet 197 10 3/mcL Normal 130-400 [facility] ([place] Comment on above: Performed By: #### G FR, A1C, CMP, LIPID, TSH #### Lali [address] [address] Platelet mean volume (Bld) [Entitic vol] 7.5 fL Normal 7.4-10.4 [facility] ([place] Comment on above: Performed By: #### G FR, A1C, CMP, LIPID, TSH #### Lali [address] [address] RBC 3.56 10 6/mcL Low 4.20-5.40 [facility] ([place] Comment on above: Performed By: #### G FR, A1C, CMP, LIPID, TSH #### Lali [address] [address] WBC 6.4 10 3/mcL Normal 4.6-10.8 [facility] ([place] Comment on above: Performed By: #### G FR, A1C, CMP, LIPID, TSH #### Lali [address] [address] CMPon 07-03-2023 Albumin Level 3.6 G/dL Normal 3.4-4.8 [facility] ([place] Comment on above: Performed By: #### G FR, A1C, CMP, LIPID, TSH #### Lali [address] [address] Albumin/Globulin [Mass ratio] 1.2 {ratio} Normal 1.1-2.5 [facility] ([place] Comment on above: Performed By: #### G FR, A1C, CMP, LIPID, TSH #### [address] [address] ALP [Catalytic activity/Vol] 87 U/L Normal 40-135 [facility] ([place] Comment on above: Performed By: #### G FR, A1C, CMP, LIPID, TSH #### Lali [address] [address] ALT [Catalytic activity/Vol] 15 U/L Normal 14-59 [facility] ([place] Comment on above: Performed By: #### G FR, A1C, CMP, LIPID, TSH #### [address] [address] AST [Catalytic activity/Vol] 16 U/L Normal 10-40 [facility] ([place] Comment on above: Performed By: #### G FR, A1C, CMP, LIPID, TSH #### [address] [address] Bili Total 0.6 mg/dL Normal 0.2-1.0 [facility] ([place] Comment on above: Result Comment: Use of this assay is not recommended for patients undergoing treatment with eltrombopag due to the potential for falsely elevated results. Performed By: #### G FR, A1C, CMP, LIPID, TSH #### [address] [address] BUN/Creatinine Ratio 17 ratio Normal 7-27 [facility] ([place] Comment on above: Performed By: #### G FR, A1C, CMP, LIPID, TSH #### [address] [address] Calcium [Mass/Vol] 8.8 mg/dL Normal 8.4-10.2 [facility] ([place] Comment on above: Performed By: #### G FR, A1C, CMP, LIPID, TSH #### [address] [address] Chloride [Moles/Vol] 102 mmol/L Normal 98-107 [facility] ([place] Comment on above: Performed By: #### G FR, A1C, CMP, LIPID, TSH #### [address] [address] CO2 [Moles/Vol] 28 mmol/L Normal 23-31 [facility] ([place] Comment on above: Performed By: #### G FR, A1C, CMP, LIPID, TSH #### [address] [address] Creatinine [Mass/Vol] 1.36 mg/dL High 0.55-1.02 [facility] [place] Comment on above: Performed By: #### G FR, A1C, CMP, LIPID, TSH #### [address] [address] Electrolyte Balance 8.0 mEq/L Normal 4.0-15.0 [facility] ([place]) Comment on above: Performed By: #### G FR, A1C, CMP, LIPID, TSH #### [address] [address] Globulin 3.1 G/dL Normal [facility] ([place] Comment on above: Performed By: #### G FR, A1C, CMP, LIPID, TSH #### [address] [address] Glucose [Mass/Vol] 187 mg/dL High 83-110 [facility] ([place] Comment on above: Performed By: #### G FR, A1C, CMP, LIPID, TSH #### [address] [address] Potassium [Moles/Vol] 4.3 mmol/L Normal 3.5-5.1 [facility] [place] Comment on above: Performed By: #### G FR, A1C, CMP, LIPID, TSH #### [address] [address] Sodium [Moles/Vol] 138 mmol/L Normal 136-145 [facility] ([place]) Comment on above: Performed By: #### G FR, A1C, CMP, LIPID, TSH #### [address] [address] Total Protein 6.7 G/dL Normal 6.4-8.2 [facility] ([place]) Comment on above: Performed By: #### G FR, A1C, CMP, LIPID, TSH #### [address] [address] Urea nitrogen [Mass/Vol] 23 mg/dL High 7-18 [facility] ([place]) Comment on above: Performed By: #### G FR, A1C, CMP, LIPID, TSH #### [address] [address] LABORATORYOrdered By: SYSTEM SYSTEM on 07-03-2023 Basophil, [...] 07-03-2023 Cholesterol [Mass/Vol] 153 mg/dL Normal 0-200 [facility] ([place]) Comment on above: Result Comment: Chol esterol Reference Interval: Less than 200 Desirable 200-239 Borderline high risk 240 and above High risk Performed By: #### G FR, A1C, CMP, LIPID, TSH #### [address] [address] Cholesterol in HDL [Mass/Vol] 34 mg/dL Low 40-60 [facility] ([place]) Comment on above: Performed By: #### G FR, A1C, CMP, LIPID, TSH #### [address] [address] Cholesterol in LDL [Mass/Vol] 50 mg/dL Normal 0-130 [facility] ([place]) Comment on above: Performed By: #### G FR, A1C, CMP, LIPID, TSH #### [address] [address] Triglyceride [Mass/Vol] 347 mg/dL High 0-150 [facility] ([place]) Comment on above: Result Comment: Trig lyceride Reference Interval: Less than 150 Normal 150-199 Borderline high risk 200-499 High risk 500 or higher Very high risk Performed By: #### G FR, A1C, CMP, LIPID, TSH #### [address] [address] TSHon 07-03-2023 TSH Qn 2.24 m[IU]/L Normal 0.36-3.74 [facility] ([place]) Comment on above: Performed By: #### G FR, A1C, CMP, LIPID, TSH #### [facility] [address] [place], [place] [address] LABORATORYOrdered By: SYSTEM SYSTEM on 03-29-2023 Albumin [...] 150 mg/dL AO ADM SS LABORATORYOrdered By: Winerist SYSTEM on 01-05-2023 Albumin BCP dye [Mass/Vol] [...] ADM SS LABORATORYOrdered By: SYSTEM SYSTEM on 09-21-2022 Albumin BCP dye [Mass/Vol] [...] Code AO Chemistry S LABORATORYOrdered By: Elaina Chilel on 06-22-2022 HbA1c (Bld) [Mass fraction] 6.1 [...] 12-24-2020 Albumin [Mass/Vol] 3.5 g/dL Normal 3.2-5.0 [facility] Comment on above: Performed By: #### L 500.58534, L500.77600 #### [facility] [address] [place], [place] [address] Albumin/Globulin [Mass ratio] 1.2 {ratio} Normal 0.8-2.0 [facility] Comment on above: Performed By: #### L 500.91943, L500.24878 #### [facility] [address] [place] [address] ALK PHOS 77 U/L Normal 45-117 [facility] Comment on above: Performed By: #### L 500.62868, L500.76907 #### [facility] [address] [place] [address] ALT [Catalytic activity/Vol] 16 U/L Normal 13-61 [facility] Comment on above: Result Comment: RESU LTS MAY BE FALSELY DEPRESSED AFTER THE ADMINISTRATION OF SULFASALAZINE AND/OR SULFAPYRIDINE. Performed By: #### L 500.24323, L500.07683 #### [facility] [address] [place] [address] Anion gap [Moles/Vol] 3 mmol/L Low 5-16 [facility] Comment on above: Performed By: #### L 500.08059, L500.72752 #### [facility] [address] [place], [place] [address] AST [Catalytic activity/Vol] 28 U/L Normal 8-34 [facility] Comment on above: Result Comment: RESU LTS MAY BE FALSELY DEPRESSED AFTER THE ADMINISTRATION OF SULFASALAZINE AND/OR SULFAPYRIDINE. Performed By: #### L 500.28544, L500.41826 #### [facility] [place] [id number] BILI TOTAL 0.50 MG/DL Normal 0.2-1.0 [facility] Comment on above: Performed By: #### L 500.11342, L500.87164 #### [facility] [address] [place] [address] Calcium [Mass/Vol] 9.8 mg/dL Normal 8.5-10.5 [facility] Comment on above: Result Comment: NOTE NEW NORMAL RANGE DUE TO REAGENT CHANGE Performed By: #### L 500.65994, L500.11749 #### [facility] [address] [place] [id number] Chloride [Moles/Vol] 104 mmol/L Normal 98-107 [facility] Comment on above: Performed By: #### L 500.52005, L500.49351 #### [facility] [address] [place] [address] CO2 [Moles/Vol] 31.0 mmol/L Normal 21-32 [facility] Comment on above: Performed By: #### L 500.97795, L500.97112 #### [facility] [place] [address] Creatinine [Mass/Vol] 1.00 mg/dL High 0.510-0.950 [facility] Comment on above: Result Comment: Mireya ents receiving either N-Acetylcysteine (NAC) or Metamizole prior to venipuncture, may have falsely depressed results. Performed By: #### L 500.82674, L500.38559 #### [facility] [address] [place] [address] Globulin (S) [Mass/Vol] 2.8 g/dL Normal 2.2-4.2 [facility] Comment on above: Performed By: #### L 500.52713, L500.23589 #### [facility] [place] [address] Glucose [Mass/Vol] 132 mg/dL High 70-100 [facility] Comment on above: Result Comment: 70-1 00- Normal Fasting; 100-125 Impaired Fasting; greater than 126 on more than one result- Diabetes. ADA guidelines. Results may be falsely elevated after the administration of Sulfapyridine. Results may be falsely depressed after the administration of Sulfasalazine. Performed By: #### L 500.53433, L500.53222 #### [facility] [address] [place] [address] Potassium [Moles/Vol] 3.9 mmol/L Normal 3.5-5.1 [facility] Comment on above: Result Comment: Slig ht Hemolysis, Result may be affected. Performed By: #### L 500.03873, L500.13671 #### [facility] [address] [place] [address] Protein [Mass/Vol] 6.3 g/dL Normal 6.0-8.5 [facility] Comment on above: Performed By: #### L 500.71904, L500.81925 #### [facility] [address] [place] [address] Sodium [Moles/Vol] 138 mmol/L Normal 136-145 [facility] Comment on above: Performed By: #### L 500.79365, L500.56337 #### [facility] [address] [place] [address] Urea nitrogen [Mass/Vol] 20 mg/dL Normal 7-26 [facility] Comment on above: Performed By: #### L 500.52846, L500.31893 #### [facility] [address] [place] [address] Urea nitrogen/Creatinine [Mass ratio] 20 mg/mg Normal 15-24 [facility] Comment on above: Performed By: #### L 500.41304, L500.71306 #### [facility] [address] [place] [address] GFR ESTon 12-24-2020 IF AMER Greater than 60 Normal [facility] Comment on above: Performed By: #### L 500.07807, L500.58380 #### [facility] [address] [place] [address] IF non-AFR AMER 54 Normal [facility] Comment on above: Performed By: #### L 500.95170, L500.84820 #### [facility] [address] [place] [address] CBCon 12-22-2020 Erythrocyte distribution width (RBC) [Ratio] 17.6 % High 11-14.5 [facility] Comment on above: Performed By: #### L 500.63980, L500.15621 #### [facility] [address] [place] [address] Hematocrit (Bld) [Volume fraction] 31.3 % Low 35.0-47.0 [facility] Comment on above: Performed By: #### L 500.35698, L500.53088 #### [facility] [address] [place] [address] Hemoglobin (Bld) [Mass/Vol] 9.5 g/dL Low 11.5-15.5 [facility] Comment on above: Performed By: #### L 500.89839, L500.78862 #### [facility] [address] [place] [address] MCHC (RBC) [Mass/Vol] 30.4 g/dL Low 32.0-36.0 [facility] Comment on above: Performed By: #### L 500.78478, L500.42314 #### [facility] [address] [place], [place] [address] MCV (RBC) [Entitic vol] 95.7 fL Normal 80.0-99.0 [facility] Comment on above: Performed By: #### L 500.10414, L500.62179 #### [facility] [address] [place] [address] Nucleated RBC/100 WBC (Bld) [Ratio] 0.0 % Normal Less than 1 [facility] Comment on above: Performed By: #### L 500.79596, L500.29463 #### [facility] [address] [place], [place] [address] Platelet mean volume (Bld) [Entitic vol] 10.3 fL Normal 9.4-12.4 [facility] Comment on above: Performed By: #### L 500.02076, L500.44976 #### [facility] [address] [place], [place] [address] PLT 148 K/CU MM Low 150-450 [facility] Comment on above: Performed By: #### L 500.87272, L500.85416 #### [facility] [address] [place], [place] [address] RBC 3.27 M/CU MM Low 3.90-5.30 [facility] Comment on above: Performed By: #### L 500.07276, L500.13331 #### [facility] [address] [place] [address] WBC 5.5 K/CUMM Normal 4.5-11.0 [facility] Comment on above: Performed By: #### L 500.27896, L500.18529 #### [facility] [address] [place] [address] PBNP TESTon 12-22-2020 Natriuretic peptide B (Bld) [Mass/Vol] 696 pg/mL High 0-450 [facility] Comment on above: Result Comment: NT-p roBNP [...] NEW NORMAL RANGE Performed By: #### L 500.57369 #### [facility] [address] [place] [address] CBCon 12-18-2020 Erythrocyte distribution width (RBC) [Ratio] 18.0 % High 11-14.5 [facility] Comment on above: Performed By: #### L 200.68785 #### [facility] [address] [place] [address] Hematocrit (Bld) [Volume fraction] 31.7 % Low 35.0-47.0 [facility] Comment on above: Performed By: #### L 200.99209 #### [facility] [address] [place] [address] Hemoglobin (Bld) [Mass/Vol] 9.5 g/dL Low 11.5-15.5 [facility] Comment on above: Performed By: #### L 200.98935 #### [facility] [address] [place] [address] MCHC (RBC) [Mass/Vol] 30.0 g/dL Low 32.0-36.0 [facility] Comment on above: Performed By: #### L 200.13810 #### [facility] [address] [place] [address] MCV (RBC) [Entitic vol] 98.1 fL Normal 80.0-99.0 [facility] Comment on above: Performed By: #### L 200.89776 #### [facility] [address] [place] [address] Nucleated RBC/100 WBC (Bld) [Ratio] 0.0 % Normal Less than 1 [facility] Comment on above: Performed By: #### L 200.83041 #### [facility] [place] [address] Platelet mean volume (Bld) [Entitic vol] 10.4 fL Normal 9.4-12.4 [facility] Comment on above: Performed By: #### L 200.41453 #### [facility] [address] [place] [address] PLT 211 K/CU MM Normal 150-450 [facility] Comment on above: Performed By: #### L 200.02443 #### [facility] [address] [place] [address] RBC 3.23 M/CU MM Low 3.90-5.30 [facility] Comment on above: Performed By: #### L 200.27892 #### [facility] [address] [place], [place] [address] WBC 6.5 K/CUMM Normal 4.5-11.0 [facility] Comment on above: Performed By: #### L 200.17126 #### [facility] [address] [place] [address] PBNP TESTon 12-18-2020 Natriuretic peptide B (Bld) [Mass/Vol] 1278 pg/mL High 0-450 [facility] Comment on above: Result Comment: NT-p roBNP [...] NEW NORMAL RANGE Performed By: #### L 500.15040, L500.14819 #### [facility] [place] [address] BMPon 12-17-2020 Anion gap [Moles/Vol] 7 mmol/L Normal 5-16 [facility] Comment on above: Performed By: #### L 500.65432, L500.45172 #### [facility] [place] [address] Calcium [Mass/Vol] 9.5 mg/dL Normal 8.5-10.5 [facility] Comment on above: Result Comment: NOTE NEW NORMAL RANGE DUE TO REAGENT CHANGE Performed By: #### L 500.55728, L500.02370 #### [facility] [address] [place] [address] Chloride [Moles/Vol] 106 mmol/L Normal 98-107 [facility] Comment on above: Performed By: #### L 500.43640, L500.30165 #### [facility] [address] [place] [address] CO2 [Moles/Vol] 28.0 mmol/L Normal 21-32 [facility] Comment on above: Performed By: #### L 500.62150, L500.06239 #### [facility] [address] [place] [address] Creatinine [Mass/Vol] 1.01 mg/dL High 0.510-0.950 [facility] Comment on above: Result Comment: Mireya ents receiving either N-Acetylcysteine (NAC) or Metamizole prior to venipuncture, may have falsely depressed results. Performed By: #### L 500.30347, L500.41007 #### [facility] [place] [address] Glucose [Mass/Vol] 128 mg/dL High 70-100 [facility] Comment on above: Result Comment: 70-1 00- Normal Fasting; 100-125 Impaired Fasting; greater than 126 on more than one result- Diabetes. ADA guidelines. Results may be falsely elevated after the administration of Sulfapyridine. Results may be falsely depressed after the administration of Sulfasalazine. Performed By: #### L 500.02659, L500.04661 #### [facility] [address] [place] [address] Potassium [Moles/Vol] 4.0 mmol/L Normal 3.5-5.1 [facility] Comment on above: Performed By: #### L 500.54665, L500.83735 #### [facility] [address] [place] [address] Sodium [Moles/Vol] 141 mmol/L Normal 136-145 [facility] Comment on above: Performed By: #### L 500.45612, L500.24181 #### [facility] [address] [place] [address] Urea nitrogen [Mass/Vol] 21 mg/dL Normal 7-26 [facility] Comment on above: Performed By: #### L 500.22111, L500.98341 #### [facility] [address] [place], [place] [address] Urea nitrogen/Creatinine [Mass ratio] 21 mg/mg Normal 15-24 [facility] Comment on above: Performed By: #### L 500.79501, L500.56661 #### [facility] [address] [place] [address] GFR ESTon 12-17-2020 IF AMER Greater than 60 Normal [facility] Comment on above: Performed By: #### L 500.65598, L500.08782 #### [facility] [address] [place] [address] IF non-AFR AMER 53 Normal [facility] Comment on above: Performed By: #### L 500.78295, L500.52234 #### [facility] [address] [place] [address] BMPon 12-14-2020 Anion gap [Moles/Vol] 3 mmol/L Low 5-16 [facility] Comment on above: Performed By: #### L 500.12707, L500.79230 #### [facility] [place] [address] Calcium [Mass/Vol] 9.7 mg/dL Normal 8.5-10.5 [facility] Comment on above: Result Comment: NOTE NEW NORMAL RANGE DUE TO REAGENT CHANGE Performed By: #### L 500.20502, L500.46962 #### [facility] [address] [place] [address] Chloride [Moles/Vol] 109 mmol/L High 98-107 [facility] Comment on above: Performed By: #### L 500.31617, L500.29838 #### [facility] [address] [place] [address] CO2 [Moles/Vol] 30.0 mmol/L Normal 21-32 [facility] Comment on above: Performed By: #### L 500.56098, L500.49513 #### [facility] [address] [place] [address] Creatinine [Mass/Vol] 1.14 mg/dL High 0.510-0.950 [facility] Comment on above: Result Comment: Mireya ents receiving either N-Acetylcysteine (NAC) or Metamizole prior to venipuncture, may have falsely depressed results. Performed By: #### L 500.89810, L500.43874 #### [facility] [address] [place], [place] [address] Glucose [Mass/Vol] 110 mg/dL High 70-100 [facility] Comment on above: Result Comment: 70-1 00- Normal Fasting; 100-125 Impaired Fasting; greater than 126 on more than one result- Diabetes. ADA guidelines. Results may be falsely elevated after the administration of Sulfapyridine. Results may be falsely depressed after the administration of Sulfasalazine. Performed By: #### L 500.77814, L500.67679 #### [facility] [address] [place] [address] Potassium [Moles/Vol] 4.9 mmol/L Normal 3.5-5.1 [facility] Comment on above: Performed By: #### L 500.72542, L500.88436 #### [facility] [place] [address] Sodium [Moles/Vol] 142 mmol/L Normal 136-145 [facility] Comment on above: Performed By: #### L 500.91252, L500.27130 #### [facility] [address] [place] [address] Urea nitrogen [Mass/Vol] 32 mg/dL High 7-26 [facility] Comment on above: Performed By: #### L 500.87228, L500.12388 #### [facility] [address] [place] [address] Urea nitrogen/Creatinine [Mass ratio] 28 mg/mg High 15-24 [facility] Comment on above: Performed By: #### L 500.16585, L500.16249 #### [facility] [address] [place] [address] CBCon 12-14-2020 Erythrocyte distribution width (RBC) [Ratio] 17.7 % High 11-14.5 [facility] Comment on above: Performed By: #### L 200.00691 #### [facility] [address] [place] [address] Hematocrit (Bld) [Volume fraction] 31.8 % Low 35.0-47.0 [facility] Comment on above: Performed By: #### L 200.06155 #### [facility] [address] [place] [address] Hemoglobin (Bld) [Mass/Vol] 9.6 g/dL Low 11.5-15.5 [facility] Comment on above: Performed By: #### L 200.20339 #### [facility] [address] [place] [address] MCHC (RBC) [Mass/Vol] 30.2 g/dL Low 32.0-36.0 [facility] Comment on above: Performed By: #### L 200.28098 #### [facility] [address] [place] [address] MCV (RBC) [Entitic vol] 97.8 fL Normal 80.0-99.0 [facility] Comment on above: Performed By: #### L 200.46161 #### [facility] [address] [place] [address] Nucleated RBC/100 WBC (Bld) [Ratio] 0.0 % Normal Less than 1 [facility] Comment on above: Performed By: #### L 200.37843 #### [facility] [address] [place] [address] Platelet mean volume (Bld) [Entitic vol] 10.1 fL Normal 9.4-12.4 [facility] Comment on above: Performed By: #### L 200.57183 #### [facility] [address] [place], [place] [address] PLT 248 K/CU MM Normal 150-450 [facility] Comment on above: Performed By: #### L 200.90843 #### [facility] [address] [place] [address] 12557 RBC 3.25 M/CU MM Low 3.90-5.30 [facility] Comment on above: Performed By: #### L 200.08288 #### [facility] [address] [place] [address] WBC 5.9 K/CUMM Normal 4.5-11.0 [facility] Comment on above: Performed By: #### L 200.42497 #### [facility] [place] [address] GFR ESTon 12-14-2020 IF AMER 56 Normal [facility] Comment on above: Performed By: #### L 500.85871, L500.11684 #### [facility] [address] [place] [address] IF non-AFR AMER 46 Normal [facility] Comment on above: Performed By: #### L 500.28234, L500.91574 #### [facility] [address] [place] [address]32[address] IRON PANELon 12-14-2020 Iron [Mass/Vol] 51 ug/dL Normal 50-170 [facility] Comment on above: Result Comment: Mireya ents treated with metal-binding drugs (e.g.deferoxamine) may have depressed iron values, as chelated iron may not properly react in the Siemens iron assay. Performed By: #### L 500.16868, L500.75861 #### [facility] [address] [place] [address]292 IRON SAT 20 % Low 22-44 [facility] Comment on above: Performed By: #### L 500.36518, L500.59284 #### [facility] [address] [place] [address] 52849 TIBC 260 UG/DL Normal 221-481 [facility] Comment on above: Performed By: #### L 500.46524, L500.94565 #### [facility] [address] [place] [address]990 BMPon 12-03-2020 Anion gap [Moles/Vol] 9 mmol/L Normal 5-16 [facility] Comment on above: Performed By: #### L 500.34804, L500.27321 #### [facility] [address] [place] [address] Performed By: #### L 500.81661, L500.64099 #### [facility] [address] [place] [address] Calcium [Mass/Vol] 9.3 mg/dL Normal 8.5-10.5 [facility] Comment on above: Result Comment: NOTE NEW NORMAL RANGE DUE TO REAGENT CHANGE Performed By: #### L 500.89946, L500.30781 #### [facility] [address] [place] [address] Performed By: #### L 500.94302, L500.43957 #### [facility] [address] [place] [address] Chloride [Moles/Vol] 104 mmol/L Normal 98-107 [facility] Comment on above: Performed By: #### L 500.56348, L500.57152 #### [facility] [address] [place] [address] Performed By: #### L 500.49264, L500.15029 #### [facility] [address] [place] [address]691 CO2 [Moles/Vol] 27.0 mmol/L Normal 21-32 [facility] Comment on above: Performed By: #### L 500.12874, L500.34804 #### [facility] [address] [place] [address] Performed By: #### L 500.25993, L500.90090 #### [facility] [address] [place], [place] [address] Creatinine [Mass/Vol] 1.13 mg/dL High 0.510-0.950 [facility] Comment on above: Result Comment: Mireya ents receiving either N-Acetylcysteine (NAC) or Metamizole prior to venipuncture, may have falsely depressed results. Performed By: #### L 500.69650, L500.93640 #### [facility] [address] [place] [address] Performed By: #### L 500.90113, L500.03185 #### [facility] [address] [place], [place] [address] Glucose [Mass/Vol] 155 mg/dL High 70-100 [facility] Comment on above: Result Comment: 70-1 00- Normal Fasting; 100-125 Impaired Fasting; greater than 126 on more than one result- Diabetes. ADA guidelines. Results may be falsely elevated after the administration of Sulfapyridine. Results may be falsely depressed after the administration of Sulfasalazine. Performed By: #### L 500.32298, L500.20844 #### [facility] [address] [place] [address] Performed By: #### L 500.55573, L500.34304 #### [facility] [address] [place] [address] Potassium [Moles/Vol] 3.9 mmol/L Normal 3.5-5.1 [facility] Comment on above: Performed By: #### L 500.85370, L500.88759 #### [facility] [address] [place] [address] Performed By: #### L 500.74277, L500.48118 #### [facility] [address] [place] [address]155 Sodium [Moles/Vol] 140 mmol/L Normal 136-145 [facility] Comment on above: Performed By: #### L 500.92206, L500.93537 #### [facility] [address] [place], [place] [address] Performed By: #### L 500.95214, L500.26728 #### [facility] [address] [place] [id number] Urea nitrogen [Mass/Vol] 15 mg/dL Normal 7-26 [facility] Comment on above: Performed By: #### L 500.96934, L500.43835 #### [facility] [address] [place] [id number] Performed By: #### L 500.36734, L500.82586 #### [facility] [address] [place] [address] Urea nitrogen/Creatinine [Mass ratio] 13 mg/mg Low 15-24 [facility] Comment on above: Performed By: #### L 500.47502, L500.60707 #### [facility] [address] [place] [address] Performed By: #### L 500.48625, L500.91248 #### [facility] [address] [place] [address] CBCon 12-03-2020 Erythrocyte distribution width (RBC) [Ratio] 18.1 % High 11-14.5 [facility] Comment on above: Performed By: #### L 200.65464 #### [facility] [address] [place] [address] Performed By: #### L 500.62016, L500.25242 #### [facility] [address] [place], [place] [id number] Hematocrit (Bld) [Volume fraction] 33.7 % Low 35.0-47.0 [facility] Comment on above: Performed By: #### L 200.62830 #### [facility] [address] [place] [address] Performed By: #### L 500.02263, L500.31963 #### [facility] [address] [place], [place] [id number] Hemoglobin (Bld) [Mass/Vol] 10.1 g/dL Low 11.5-15.5 [facility] Comment on above: Performed By: #### L 200.48201 #### [facility] [address] [place] [address]# [phone] Performed By: #### L 500.41189, L500.16748 #### [facility] [address] [place] [address]# [phone] MCHC (RBC) [Mass/Vol] 30.0 g/dL Low 32.0-36.0 [facility] Comment on above: Performed By: #### L 200.53881 #### [facility] [address] [place] [address]# [phone] Performed By: #### L 500.12669, L500.55195 #### [facility] [address] [place] [address]# [phone] MCV (RBC) [Entitic vol] 97.4 fL Normal 80.0-99.0 [facility] Comment on above: Performed By: #### L 200.29992 #### [facility] [address] [place] [address]# [phone] Performed By: #### L 500.07257, L500.97291 #### [facility] [address] [place] [address]# [phone] Nucleated RBC/100 WBC (Bld) [Ratio] 0.0 % Normal Less than 1 [facility] Comment on above: Performed By: #### L 200.79343 #### [facility] [address] [place] [address] Performed By: #### L 500.21236, L500.68619 #### [facility] [address] [place] [address] Platelet mean volume (Bld) [Entitic vol] 9.9 fL Normal 9.4-12.4 [facility] Comment on above: Performed By: #### L 200.17434 #### [facility] [place] [address] Performed By: #### L 500.32585, L500.51462 #### [facility] [address] [place] [address] PLT 201 K/CU MM Normal 150-450 [facility] Comment on above: Performed By: #### L 200.62634 #### [facility] [address] [place] [address] Performed By: #### L 500.16087, L500.76325 #### [facility] [address] [place] [address] RBC 3.46 M/CU MM Low 3.90-5.30 [facility] Comment on above: Performed By: #### L 200.41955 #### [facility] [address] [place] [address] Performed By: #### L 500.92561, L500.27299 #### [facility] [address] [place] [address] WBC 6.1 K/CUMM Normal 4.5-11.0 [facility] Comment on above: Performed By: #### L 200.61012 #### [facility] [address] [place] [address] Performed By: #### L 500.78848, L500.23334 #### [facility] [address] [place] [address] GFR ESTon 12-03-2020 IF AMER 56 Normal [facility] Comment on above: Performed By: #### L 500.05850, L500.72433 #### [facility] [address] [place] [address] Performed By: #### L 500.84512, L500.20827 #### [facility] [address] [place] [address] 24887 IF non-AFR AMER 47 Normal [facility] Comment on above: Performed By: #### L 500.92436, L500.03976 #### [facility] [address] [place] [address] Performed By: #### L 500.92871, L500.65976 #### [facility] [address] [place] [address] PBNP TESTon 12-03-2020 Natriuretic peptide B (Bld) [Mass/Vol] 1783 pg/mL High 0-450 [facility] Comment on above: Result Comment: NT-p roBNP [...] NEW NORMAL RANGE Performed By: #### L 500.16850 #### [facility] [address] [place] [address] Vital Signs Date Time Vital Sign Value Performing Clinician Facility 05-01-2025 11:30-0400 Body weight 67.8 kg FITZ GA MD [facility] 01-30-2025 11:30-0400 Body weight 68 kg FITZ GA MD [facility] 01-02-2025 11:55-0400 Body weight 69 kg FITZ GA MD [facility] 06-06-2022 11:20-0400 Body temperature 98.42 [degF] DR HARSHAD TEIXEIRA MD [facility] 06-06-2022 11:20-0400 Diastolic blood pressure 60 mm[Hg] DR HARSHAD TEIXEIRA MD [facility] 06-06-2022 11:20-0400 Heart rate 82 /min DR HARSHAD TEIXEIRA MD [facility] 06-06-2022 11:20-0400 Respiratory rate 14 /min DR HARSHAD TEIXEIRA MD [facility] 06-06-2022 11:20-0400 Systolic blood pressure 123 mm[Hg] DR HARSHAD TEIXEIRA MD [facility] 06-05-2022 06:54-0400 Diastolic blood pressure 61 mm[Hg] RODRI REICHFIELD DO [facility] 06-05-2022 06:54-0400 Heart rate 63 /min RODRI REICHFIELD DO [facility] 06-05-2022 06:54-0400 Respiratory rate 18 /min RODRI REICHFIELD DO [facility] 06-05-2022 06:54-0400 Systolic blood pressure 133 mm[Hg] RODRI REICHFIELD DO [facility] 06-05-2022 04:20-0400 Body temperature 97.7 [degF] RODRI REICHFIELD DO [facility] 06-05-2022 04:20-0400 Diastolic blood pressure 89 mm[Hg] RODRI REICHFIELD DO [facility] 06-05-2022 04:20-0400 Heart rate 65 /min RODRI REICHFIELD DO [facility] 06-05-2022 04:20-0400 Respiratory rate 18 /min [facility] DO [facility] 06-05-2022 04:20-0400 Systolic blood pressure 178 mm[Hg] RODRI [facility] DO [facility] 12-08-2021 12:03-0500 Diastolic blood pressure 69 mm[Hg] DR OC COULTER MD [facility] 12-08-2021 12:03-0500 Heart rate 60 /min DR OC COULTER MD [facility] 12-08-2021 12:03-0500 Respiratory rate 16 /min DR OC COULTER MD [facility] 12-08-2021 12:03-0500 Systolic blood pressure 180 mm[Hg] DR OC COULTER MD [facility] 12-08-2021 10:47-0500 Body height 162.[address] OC COULTER MD [facility] 12-08-2021 10:47-0500 Body temperature 98.42 [degF] DR OC COULTER MD [facility] 12-08-2021 10:47-0500 Body weight 69.[address] OC COULTER MD [facility] 12-08-2021 10:47-0500 Diastolic blood pressure 83 mm[Hg] DR OC COULTER MD [facility] 12-08-2021 10:47-0500 Heart rate 76 /min DR OC COULTER MD [facility] 12-08-2021 10:47-0500 Respiratory rate 24 /min DR OC COULTER MD [facility] 12-08-2021 10:47-0500 Systolic blood pressure 177 mm[Hg] DR OC COULTER MD [facility] 08-27-2021 09:49-0500 Diastolic blood pressure 66 mm[Hg] DR DAQUAN MERCADO MD [facility] 08-27-2021 09:49-0500 Heart rate 66 /min DR DAQUAN MERCADO MD [facility] 08-27-2021 09:49-0500 Respiratory rate 20 /min DR DAQUAN MERCADO MD [facility] 08-27-2021 09:49-0500 Systolic blood pressure 172 mm[Hg] DR DAQUAN MERCADO MD [facility] 08-27-2021 09:34-0500 Diastolic Blood Pressure NBP [address] DAQUAN MERCADO MD [facility] 08-27-2021 09:34-0500 Heart rate 66 /min DR DAQUAN MERCADO MD [facility] 08-27-2021 09:34-0500 Respiratory rate 16 /min DR DAQUAN MERCADO MD [facility] 08-27-2021 09:34-0500 Systolic Blood Pressure NBP [address] DAQUAN MERCADO MD [facility] 08-27-2021 09:15-0500 Body height [address] DAQUAN MERCADO MD [facility] 08-27-2021 09:15-0500 Body weight [address] DAQUAN MERCADO MD [facility] 08-27-2021 09:15-0500 Body weight 28.58 kg/m2 DR DAQUAN MERCADO MD [facility] 08-27-2021 09:15-0500 diastolic 97 mm[Hg] DR DAQUAN MERCADO MD [facility] 08-27-2021 09:15-0500 Heart rate 64 /min DR DAQUAN MERCADO MD [facility] 08-27-2021 09:15-0500 Respiratory rate 19 /min DR DAQUAN MERCADO MD [facility] 08-27-2021 09:15-0500 systolic 164 mm[Hg] DR DAQUAN MERCADO MD [facility] Encounters Encounter Date Encounter Type Care Provider Facility Start: 08-19-2025 ambulatory [facility]: Start: 08-11-2025 ambulatory [facility]: Start: 06-23-2025 ambulatory Farnaz [facility]: Start: 05-26-2025 End: 05-30-2025 ambulatory FITZ GA MD Facility[facility] Start: 05-26-2025 End: 05-30-2025 Outreach Lab FITZ GA MD 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 Start: 05-01-2025 End: 08-01-2025 ambulatory FITZ GA MD Facility:[facility] Start: 05-01-2025 End: 08-01-2025 OTHER THERAPY FITZ GA MD [facility] Start: 04-18-2025 End: 04-18-2025 ambulatory GELA NATARAJAN MD Facility:[facility] Start: 04-18-2025 End: 04-18-2025 Patient encounter procedure GELA NATARAJAN MD [facility] Start: 04-14-2025 End: 04-14-[address] ROMULO BARNARD MD Facility:[facility] Start: 04-14-2025 End: 04-14-[address] ROMULO BARNARD MD [facility] Start: 03-28-2025 End: 03-28-2025 ambulatory FITZ GA MD Facility:[facility] Start: 03-28-2025 End: 03-28-2025 Patient encounter procedure FITZ GA MD [facility] Start: 03-20-2025 End: 03-20-2025 ambulatory FITZ GA MD Facility:[facility] Start: 03-06-2025 End: 03-06-2025 ambulatory FITZ GA MD Facility:[facility] Start: 03-06-2025 End: 03-06-2025 Patient encounter procedure FITZ GA MD [facility] Start: 02-20-2025 End: 02-24-2025 ambulatory FITZ GA MD Facility[facility] Start: 02-20-2025 End: 02-24-2025 Outreach Lab FITZ GA MD [facility] Start: 02-18-2025 End: 02-18-2025 ambulatory FITZ GA MD Facility:[facility] Start: 02-18-2025 End: 02-18-2025 Patient encounter procedure FITZ GA MD [facility] Start: 02-10-2025 End: 02-14-2025 ambulatory FITZ GA MD Facility:[facility] Start: 02-10-2025 End: 02-14-2025 Outreach Lab FITZ GA MD [facility] Start: 10-21-2024 End: 10-25-2024 ambulatory FITZ GA MD Facility:[facility] Start: 10-21-2024 End: 10-25-2024 Outreach Lab FITZ GA MD [facility] Start: 07-10-2024 End: 07-14-2024 Outreach Lab FITZ GA MD [facility] Start: 04-03-2024 End: 04-07-2024 ambulatory FITZ GA MD Facility:[facility] Start: 04-03-2024 End: 04-07-2024 Encounter for general adult medical examination without abnormal findings FITZ GA MD Facility:[facility] Start: 04-03-2024 End: 04-07-2024 Outreach Lab FITZ GA MD [facility] Start: 01-10-2024 End: 01-14-2024 ambulatory FITZ GA MD Facility:[facility] Start: 01-10-2024 End: 01-14-2024 Outreach Lab FITZ GA MD [facility] Start: 09-18-2023 End: 09-22-2023 ambulatory FITZ GA MD Facility:[facility] Start: 09-18-2023 End: 09-22-2023 Outreach Lab FITZ GA MD [facility] Start: 09-11-2023 End: 09-11-2023 ambulatory GELA NATARAJAN MD Facility:[facility] Start: 07-03-2023 End: 07-07-2023 ambulatory FITZ GA MD Facility:[facility] Start: 07-03-2023 End: 07-07-2023 Outreach Lab FITZ GA MD [facility] Start: 03-29-2023 End: 04-02-2023 Outreach Lab FITZ GA MD [facility] Start: 02-01-2023 End: 02-01-[address] DAQUAN MERCADO MD [facility] Start: 01-05-2023 End: 01-05-2023 Patient encounter procedure FITZ GA MD [facility] Start: 11-24-2022 End: 11-24-2022 Patient encounter procedure GELA NATARAJAN MD [facility] Start: 09-21-2022 End: 09-25-2022 Outreach Lab FITZ GA MD [facility] Start: 08-02-2022 End: 08-02-[address] DAQUAN MERCADO MD [facility] Start: 07-15-2022 End: 09-07-[address] ALFONSO RECINOS [facility] Start: 06-22-2022 End: 06-26-2022 Outreach Lab FITZ GA MD [facility] Start: 06-06-2022 End: 06-06-2022 Emergency department patient visit DR HARSHAD TEIXEIRA MD [facility] Start: 06-05-2022 End: 06-05-2022 Emergency department patient visit RODRI SY DO [facility] Start: 06-03-2022 End: 06-03-[address] DAQUAN MERCADO MD [facility] Start: 04-29-2022 End: 04-29-2022 Patient encounter procedure JABIER BLAKE RED HAT OPEN STACK ADMINISTRATOR-PRESS WORKER HELPER [facility] Start: 04-21-2022 End: 04-21-[address] ROMULO BARNARD MD [facility] Start: 03-23-2022 End: 03-27-2022 Outreach Lab FITZ GA MD [facility] Start: 03-03-2022 End: 03-03-[address] DAQUAN MERCADO MD [facility] Start: 12-21-2021 End: 12-21-2021 Patient encounter procedure FITZ GA MD [facility] Start: 12-08-2021 End: 12-08-2021 Emergency department patient visit DR OC COULTER MD [facility] Start: 10-26-2021 End: 10-26-[address] DAQUAN MERCADO MD [facility] Start: 09-16-2021 End: 09-16-2021 Patient encounter procedure FITZ GA MD [facility] Start: 08-27-2021 End: 08-27-[address] DAQUAN MERCADO MD [facility] Procedures Date Procedure Procedure Detail Performing Clinician Start: 08-27-2021 Injection of knee joint DR DAQUAN MERCADO MD Start: 10-19-2020 Local anesthetic sac ral epidural block DR DAQUAN MERCADO MD Comment on above: 60% for one month Start: 02-07-2020 Local anesthetic sac ral epidural block DR DAQUAN MERCADO MD Comment on above: 60% relief for 4-5mo nths Start: 08-02-2017 Lumbar spondylosis (disorder) DR DAQUAN MERCADO MD Comment on above: Left laminectomy, L4 laminectomy, partial S1 laminectomy, Pedicle screw fusion bilaterally at L4, and L5, Foraminotomies at L4-L5 adn L5-S1, autologous bone graft and MTF allograft in the lateral gutters, Hospitalized, Dr. Yash Bauer Start: 06-22-[address] DAQUAN CROUCH MD Comment on above: [facility] Dr. Jose L powell Start: 06-27-2007 [...] Immunization Date Immunization Notes Care Provider Fa [facility] 03-15-2022 COVID-19, mRNA, LNP- S, PF, 100 mcg or 50 mcg dose; Translations: [Moderna COVID-19 Vaccine] FITZ GA MD [facility] 09-14-2021 COVID-19, mRNA, LNP- S, PF, 100 mcg/ 0.5 mL dose; Translations: [Moderna COVID-19 Vaccine] FITZ GA MD [facility] 12-03-2020 SARS-CoV-2 (COVID-19 ) mRNA-[address] DAQUAN MERCADO MD [facility] 06-26-2019 influenza virus vaccine, unspecified formulation DR DAQUAN MERCADO MD [facility] 04-08-2019 tetanus and diphther ia toxoids, adsorbed, preservative free, for adult use (2 Lf of tetanus toxoid and 2 Lf of diphtheria toxoid); Translations: [Tenivac] DR DAQUAN MERCADO MD [facility] Payers Date Payer Category Payer Self-pay 2023 Unknown [id number] 2022 Private Health Insurance [id number] [id number] Unknown [id number] 1942 Unknown [id number] 2.16.8 40.1.282608.3.579.2.627 1942 Unknown [id number] 2.16.8 40.1.300647.3.579.2.627 1942 Unknown [id number] 2.16.8 40.1.479224.3.579.2.627 1942 Unknown [id number] 2.16.8 40.1.001734.3.579.2.62 1942 Unknown [id number] 2.16.8 40.1.828271.3.579.2.627 1942 Unknown [id number] 2.16. 840.1.042190.3.579.2.62 1942 Unknown [id number] 2.16. 840.1.300924.3.579.2.62 1942 Unknown [id number] 2.16. 840.1.879736.3.579.2. 1942 Unknown [id number] 2.16. 840.1.316591.3.579.2.62 1942 Unknown [id number] 2.16. 840.1.543843.3.579.2. 1942 Unknown [id number] 2.16. 840.1.276898.3.579.2. 1942 Unknown [id number] 2.16. 840.1.622111.3.579.2.62 1942 Unknown [id number] 2.16.8 40.1.907917.3.579.2.62 1942 Unknown [id number] 2.16.8 40.1.539650.3.579.2.62 1942 Unknown [id number] 2.16.8 40.1.754817.3.579.2.62 1942 Unknown [id number] 2.16.8 40.1.929158.3.579.2.62 1942 Unknown [id number] 2.16.8 40.1.750295.3.579.2.627 Unknown [id number] 2.16.8 40.1.886028.3.579.2.462 Unknown [id number] 2.16.8 40.1.662263.3.579.2.462 Unknown [id number] 2.16.8 40.1.984625.3.579.2.462 Social History Date Type Detail Facility Start: 04-30-2019 End: 03-06-2025 Never smoked tobacco (finding) [facility] Sex Assigned At Female [facility] Sexual Orientation [facility] Start: 07-23-2020 Sex Female (finding) [facility] Functional Status Date Assessment Result Facility 06-06-2022 Functional Status Up ad paula [facility] 06-05-2022 Functional Status Independent [facility] 06-05-2022 Functional Status Standard Safet y ID band on, Allergy Band on, Call device within reach, Bed in low position, Wheels locked, Upper/Half-Length side-rails up, Phone within reach, Visitor at bedside, Safety level maintained [facility] Mental Status Date Assessment Result Facility 06-06-2022 Mental Status Oriented x 4 [facility] 06-05-2022 Mental Status Orientation Oriented x 4 [facility] 06-05-2022 Mental Status [facility] Clinical Notes 08-27-2021 to 05-01-2025 [...] Dhruv Cook PharmD on 05/01/2025 03:23 PM [facility] 04-18-2025 Note Exam Date Time Procedure Performing Provider Status 04/18/25 9:33 AM Echocardiogram, Adult - CV SHELL MEDLEY MD; Auth (Verified) [facility]05-17-2025 Note. MICRO - Microbiology PROCEDURE: Culture Wound [...] Locations *1: This test was performed at: [facility], [address] [place] [address], [id number]- , 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 Patient will follow-up in three months [...] Dhruv Cook PharmD on 01/30/2025 01:29 PM [facility]03-27-2025 Note Vitals: - Weight: 151.8lbs History and Physical: Yolie presents to [facility] for an initial visit on diabetes management. She is currently managed on glimepiride 4mg daily. She was previously well controlled on Farxiga 10mg daily but stoppedtaking this due to the high copay. The main focus on today's visit will be setting her up with [facility] provided glucometer and testing supplies and counseling [...] - Foot Exam: Completed in 2024 by [employer] Blood Glucose Monitoring: Currently is not checking her blood sugar due to not having a working glucometer at home. Will set her up with free [facility] provided glucometer and testing supplies. Acute Complications: [...] Assessment & Plan: Provided patient with free [facility] glucometer and testing supplies. 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 She is currently managed on glimepiride 4mg daily. She was previously well controlled on Farxiga 10mg daily but stoppedtaking this due to the high copay. The main focus on today's visit will be setting her up with [facility] provided glucometer and testing supplies [...] - Foot Exam: Completed in 2024 by [employer] Blood Glucose Monitoring: Currently is not checking her blood sugar due to not having a working glucometer at home. Will set her up with free [facility] provided glucometer and testing supplies. Acute Complications: [...] Assessment & Plan: Provided patient with free [facility] glucometer and testing supplies. 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 You may use xdem-rfc-rezijii pain medicines to control pain, unless another [...] doesn t get better after several days [phone] [employer]. [address] [place] [address]. All rights reserved. This information is not intended as a substitute for professional medical care. Always follow yourhealthcare professional's instructions. 06/06/2022 11:34:36 Lower Extremity Contusion [...] injured area. Frequent bruising for unknown reasons [phone] [employer]. [address] [place] [address]. All rights reserved. This information is not intended as a substitute for professional medical care. Always follow yourhealthcare professional's instructions. Follow Up Care 06/06/2022 11:12:51 With:FITZ GA MD Address: [place] [address]- When:2-4 days [facility] 08-29-2022 Note Discharge Instructions Thank you for allowing [facility] to assist you with your healthcare needs. The following is importantdischarge information regarding your hospital visit. Diagnosis from Today's Visit Blister Lower leg pain-swelling What to Do Next Instructions from Your Care Team No qualifying data available. Post Acute Orders No qualifying data available. You Need to Schedule the Following Appointments Follow Up with FITZ GA MD When Within 2-4 days Where: [place] [address]- Allergies codeine (N/V) egg albumin (whites) (Unknown) [...] by your healthcare provider. You may use rhqh-hgm-duvlfmj pain medicines to control pain, unless another [...] doesn t get better after several days [phone] [employer] [address] [place] [address]. All rights reserved. This information is not [...] injured area. Frequent bruising for unknown reasons [phone] [employer]. [address] [place] [address]. All rights reserved. This information is not intended as a substitute for professional medical care. Always follow yourhealthcare professional's instructions. Additional Information VACCINATE! IT SAVES LIVES! Members of the community who have not yet received the COVID-19 vaccine and would like to receive it can visit one of [facility] vaccine clinics. There are many vaccine clinic locations within the [facility]. For locations and available times, please visit [email or web address]. It is important to note that some COVID mobile vaccine clinics are held outdoors and may be canceled in rainy orstormy conditions. To learn more about pediatric vaccinations (ages 5-11), we invite you to visit the [facility] webpage. https://www.[facility].org/pages/8049-Axpeq-Oxijjvavsxl-Satpyatzxa-Xjwpd-Gew stions.htmlTo learn more about the COVID-19 vaccine, we invite you to visit the [facility] website for a list of frequently asked questions. [email or web address]://[email or web address]/assets/Nidaijnh-dzz-Adijotxs/bqzmy-Itmnhbz-Ymvzoaqmez _Asked-Questions.pdf [facility] Patient Portal Access Instructions: Stay connected with your healthcare team and access your personal medical information anytime with the [facility] Patient Portal. If you would like a full copy of your medical records please contact the [facility] Medical Records Department Monday through Monday between 8a.m. and 4:30p.m. Please follow the directions below to access the portal: 1.Access the email account you provided upon registration to the [facility].2.Look for an invitation email from [facility].3.Open the email and access the invitation link: Accept Invitation to [facility]4.Fill in the required meredith to create your account. Sign into [email or web address] with your username and password that you [...] you will allow to register on the [facility] Patient Portal for access to your information. You can also access the [facility] Patient Portal on the [place] roya. Simply click on "Health Records" under [...] Call your local pharmacy or go to http://bit.GlucoTec/3B1Oz9g to find one close to you.3.Make use of household items: Use cat litter or old coffee grounds to dispose medications if other options arenot available. Mix your drugs with these household products, seal them in an airtight container andthrow it into the garbage. [facility]: [phone] to be sure your drugs can be [...] aware that I should contact my doctor. 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 [...] SAVAGE DO When Within 3-7 days Where: [address] [place] [address] Follow Up with Go to emergency room if symptoms worsen When Within 2-4 days Follow Up with FITZ GA MD When Within 2-4 days Where: [address] [facility] [place] [address]- Allergies codeine (N/V) egg albumin (whites) (Unknown) [...] blue color of the hand or foot 1308-9370 [employer]. [address] [place] [address], [place] [address]. All rights reserved. This information is not [...] in vomit, stools (black or red color) 8431-6165 [employer]. [address] [place] [address], [place] [address]. All rights reserved. This information is not intended as a substitute for professional medical care. Always follow yourhealthcare professional's instructions. Additional Information VACCINATE! IT SAVES LIVES! Members of the community who have not yet received the COVID-19 vaccine and would like to receive it can visit one of [facility] vaccine clinics. There are many vaccine clinic locations within the [facility]. For locations and available times, please visit [email or web address]. It is important to note that some COVID mobile vaccine clinics are held outdoors and may be canceled in rainy orstormy conditions. To learn more about pediatric vaccinations (ages 5-11), we invite you to visit the [facility] webpage. https://www.[facility]ron[facility]ss.org/pages/3604-Ivddn-Nlmggwbrpuf-Jrrhffvlex-Flyzh-Tms stions.htmlTo learn more about the COVID-19 vaccine, we invite you to visit the [facility] website for a list of frequently asked questions. https://[email or web address]/assets/Tcixxxqa-fvv-Ulhdhnge/vggtg-Kpknpvw-Cjruucukks _Asked-Questions.pdf [facility] Patient Portal Access Instructions: Stay connected with your healthcare team and access your personal medical information anytime with the [facility] Patient Portal. If you would like a full copy of your medical records please contact the [facility] Medical Records Department Monday through Monday between 8a.m. and 4:30p.m. Please follow the directions below to access the portal: 1.Access the email account you provided upon registration to the [facility].2.Look for an invitation email from [facility].3.Open the email and access the invitation link: Accept Invitation to [facility]4.Fill in the required meredith to create your account. Sign into [email or web address] with your username and password that you [...] you will allow to register on the [facility] Patient Portal for access to your information. You can also access the [facility] Patient Portal on the Gocella. Simply click on "Health Records" under "HealthData" and then click on the Mowjow logo. HOW TO SAFELY DISPOSE OF PRESCRIPTION [...] Call your local pharmacy or go to http://Bionostra.GlucoTec/[email or web address] to find one close to you.3.Make use of household items: Use cat litter or old coffee grounds to dispose medications if other options arenot available. Mix your drugs with these household products, seal them in an airtight container andthrow it into the garbage. Call [facility]: [phone] to be sure your drugs can be [...] been reviewed and explained to me and I,SUZIEJULIO YOLIE E understand my current condition and have read and understand these discharge instructions. I have received a written copy of the plan/instructions. If I have questions, I am aware that I should contact my doctor. 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 [address] [place], [place] [address]. All rights reserved. This information is not [...] in vomit, stools (black or red color) 8639-9417 [employer]. [address] [place] [address]. All rights reserved. This information is not intended as a substitute for professional medical care. Always follow yourhealthcare professional's instructions. Follow Up Care 06/05/2022 04:08:27 With:DO SAMARIA SAVAGE DO Address: [address] [place] [address] [address] [place] [address] When:3-7 days With:Go to emergency room if symptoms worsen Address:Unknown When:2-4 days With:FITZ GA MD Address: [address] [facility] [place] [address]- When:2-4 days [facility] 08-28-2022 Note ORIGINAL EXAMINATION: TWO XRAY VIEWS [...] Sign Date: 06/05/2022 5:46:32 AM Ordering Provider: [facility]08-28-2022 Note ORIGINAL EXAMINATION: TWO XRAY VIEWS OF [...] Sign Date: 06/05/2022 5:46:32 AM Ordering Provider: [facility]03-02-2022 Hospital Discharge instructions Patient Education 12/08/2021 11:44:06 [...] shoulder or upper arm Fever or chills [phone] [employer] [place] [address], [place] [address]. All rights reserved. This information is not intended as a substitute for professional medical care. Always follow yourhealthcare professional's instructions. 12/08/2021 11:43:39 Scalp Contusion Scalp [...] in any part of the body Seizures 0132-8717 [employer]. [address] [place] [address]. All rights reserved. This information is not [...] the ears or bruising around the eyes 5241-8452 [employer]. [address] [place] [address]. All rights reserved. This information is not intended as a substitute for professional medical care. Always follow yourhealthcare professional's instructions. Follow Up Care 12/08/2021 10:40:55 With:FITZ GA Address: [address] [place] [address] [address] [facility] [place] [address]- Business (1) When:2-4 days Comments:Return to ED if symptoms worsen [facility] 11-19-2021 Evaluation + Plan noteExtracted from: Title:PM [...] s prescription regimen. I have reviewed the [place] Automated Rx Reporting System (OARRS) report for [...] Appointments Appointment Date:09/16/2021 09:30:00 AM Scheduled Provider: Location:[facility] Appointment Type:PC Nurse Lab Appointment Date:09/23/2021 11:30:00 AM Scheduled Provider: Location:[facility] Appointment Type:CV OV Appointment Date:09/27/2021 01:15:00 PM Scheduled Provider:FITZ GA MD Location:[facility] Appointment Type: OV Future Scheduled Tests Laboratory* Basic Metabolic Panel 02/06/21 * Thyroid Stimulating Hormone 03/31/21 * Free T4 03/31/21 * A1C Hemoglobin 09/30/21 * Complete Blood Count 03/31/21 * Lipid Profile 09/30/21 * Complete Metabolic Panel 09/30/21 Radiology* XR Foot Minimum 3 Views Left 06/16/21 * MA Mammo Screening Bilateral w/ Curt 11/03/20 [facility] 11-19-2021 Hospital Discharge instructions Patient Education 08/27/2021 09:25:42 PM Discharge Instructions, Esha wyman (01/08/21) ([id number]) [facility] Discharge Instructions POST PROCEDURE INSTRUCTIONS [...] drawn on (Try to have drawn at [facility] to speed results to us). Stop blood [...] xx Bring someone to drive you home. [facility] Evaluation + Plan note Future Appointments Appointment Date:09/23/2021 11:30:00 AM Scheduled Provider: Location:[facility] Appointment Type:CV OV Appointment Date:09/28/2021 01:15:00 PM Scheduled Provider:FITZ GA MD Location:[facility] Appointment Type:PC OV Appointment Date:10/26/2021 12:25:00 PM Scheduled Provider:DAQUAN MERCADO MD Location:PM Office Appointment Type:PM OV Future Scheduled Tests Laboratory* Basic Metabolic Panel 02/06/21 * Complete Blood Count 03/31/21 Radiology* XR Foot Minimum 3 Views Left 06/16/21 * MA Mammo Screening Bilateral w/ Curt 11/03/20 [facility] Evaluation + Plan note Future Appointments Appointment [...] MA Mammo Screening Bilateral w/ Curt 11/03/20 [facility] Evaluation + Plan note [...] CT Abdomen and Pelvis w/ contrast 12/08/21 [facility] Evaluation + Plan note Future Appointments Appointment Date:12/28/2021 10:00:00 AM Scheduled Provider:FITZ GA MD Location:[facility] Appointment Type:PC Wellness Primetime Enhanced with Labs [...] CT Abdomen and Pelvis w/ contrast 12/08/21 [facility] Evaluation + Plan note Future Appointments Appointment Date:03/15/2022 01:30:00 PM Scheduled Provider: Location:[facility] Appointment Type:COVID AMB VACCINE Appointment Date:03/23/2022 09:15:00 AM Scheduled Provider: Location:[facility] Appointment Type:PC Nurse Lab Appointment Date:03/31/2022 11:00:00 AM Scheduled Provider:FITZ GA MD Location:[facility] Appointment Type: OV Future Scheduled Tests Laboratory* Thyroid Stimulating Hormone 03/30/22 * A1C Hemoglobin 03/30/22 * Complete Blood Count 09/28/21 * Complete Blood Count 12/28/21 * Complete Blood Count 03/31/21 * Lipid Profile 03/30/22 * Complete Metabolic Panel 03/30/22 Radiology* XR Foot Minimum 3 Views Left 06/16/21 * XR Shoulder Minimum 2 Views Left 12/09/21 * XR Wrist Minimum 3 Views Left 12/09/21 [facility] Evaluation + Plan note Future Appointments Appointment Date:03/29/2022 01:15:00 PM Scheduled Provider: Location:[facility] Appointment Type:CV OV Appointment Date:03/31/2022 11:00:00 AM Scheduled Provider:FITZ GA MD Location:[facility] Appointment Type:PC OV Future Scheduled Tests Laboratory* Complete Blood Count 09/28/21 * Complete Blood Count 03/31/21 Radiology* XR Foot Minimum 3 Views Left 06/16/21 * XR Shoulder Minimum 2 Views Left 12/09/21 * XR Wrist Minimum 3 Views Left 12/09/21 [facility] Evaluation + Plan note Future Appointments Appointment Date:05/06/2022 12:00:00 PM Scheduled Provider:JABIER BLAKE Location:PM Office Appointment Type:PM OV LOU AT Appointment Date:06/29/2022 09:30:00 AM Scheduled Provider: Location:[facility] Appointment Type:PC Nurse Lab Appointment Date:07/01/2022 10:00:00 AM Scheduled Provider:FITZ GA MD Location:[facility] Appointment Type:PC OV Diagnostic Tests Pending * [...] XR Wrist Minimum 3 Views Left 12/09/21 [facility] Evaluation + Plan note Future Appointments Appointment Date:06/24/2022 09:00:00 AM Scheduled Provider:JABIER BLAKE Location:PM Office Appointment Type:PM OV LOU AT Appointment Date:06/29/2022 09:30:00 AM Scheduled Provider: Location:[facility] Appointment Type:PC Nurse Lab Appointment Date:07/01/2022 10:00:00 AM Scheduled Provider:FITZ GA MD Location:[facility] Appointment Type:PC OV Future Scheduled Tests Laboratory* Thyroid Stimulating Hormone 07/01/22 * A1C Hemoglobin 07/01/22 * Complete Blood Count 09/28/21 * Lipid Profile 07/01/22 * Complete Metabolic Panel 07/01/22 Radiology* XR Foot Minimum 3 Views Left 06/16/21 * XR Shoulder Minimum 2 Views Left 12/09/21 * XR Wrist Minimum 3 Views Left 12/09/21 [facility] Evaluation + Plan note Future Appointments Appointment Date:06/29/2022 09:30:00 AM Scheduled Provider: Location:[facility] Appointment Type:PC Nurse Lab Appointment Date:07/21/2022 09:30:00 AM Scheduled Provider:FITZ GA MD Location:[facility] Appointment Type:PC OV Appointment Date:08/02/2022 10:30:00 AM [...] XR Wrist Minimum 3 Views Left 12/09/21 [facility] Evaluation + Plan note Future Appointments Appointment Date:07/21/2022 09:30:00 AM Scheduled Provider:FITZ GA MD Location:[facility] Appointment Type:PC OV Appointment Date:08/02/2022 10:30:00 AM Scheduled Provider:DAQUAN MERCADO MD Location:PM Office Appointment Type:PM OV Future Scheduled Tests Laboratory* Complete Blood Count 09/28/21 Radiology* XR Shoulder Minimum 2 Views Left 12/09/21 * XR Wrist Minimum 3 Views Left 12/09/21 [facility] Evaluation + Plan note Future Appointments Appointment Date:09/21/2022 09:45:00 AM Scheduled Provider: Location:[facility] Appointment Type:PC Nurse Lab Appointment Date:10/13/2022 11:30:00 AM Scheduled Provider:FITZ GA MD Location:[facility] Appointment Type:PC OV Future Scheduled Tests Laboratory* Thyroid Stimulating Hormone 10/06/22 * A1C Hemoglobin 10/06/22 * Complete Blood Count 07/07/22 * Complete Blood Count 09/28/21 * Lipid Profile 10/06/22 * Complete Metabolic Panel 10/06/22 Radiology* XR Shoulder Minimum 2 Views Left 12/09/21 * XR Wrist Minimum 3 Views Left 12/09/21 [facility] Evaluation + Plan note Future Appointments Appointment Date:10/13/2022 11:30:00 AM Scheduled Provider:FITZ GA MD Location:[facility] Appointment Type:PC OV Future Scheduled Tests Laboratory* Complete Blood Count 07/07/22 Radiology* XR Shoulder Minimum 2 Views Left 12/09/21 * XR Wrist Minimum 3 Views Left 12/09/21 [facility] Evaluation + Plan note Future Appointments Appointment Date:11/30/2022 01:00:00 PM Scheduled Provider: Location:[facility] Appointment Type:CV Procedure - AOH Echo Appointment Date:01/04/2023 09:30:00 AM Scheduled Provider: Location:[facility] Appointment Type:PC Nurse Lab Appointment Date:01/12/2023 11:30:00 AM Scheduled Provider:FITZ GA MD Location:[facility] Appointment Type:PC Wellness Primetime Enhanced Appointment Date:02/01/2023 11:30:00 AM Scheduled Provider:DAQUAN MERCADO MD Location:PM Office Appointment Type:PM OV Appointment Date:02/02/2023 11:45:00 AM Scheduled Provider: Location:[facility] Appointment Type:CV OV Future Scheduled Tests Laboratory* Thyroid Stimulating Hormone 01/11/23 * A1C Hemoglobin 01/11/23 * Complete Blood Count 07/07/22 * Complete Blood Count 10/13/22 * Lipid Profile 01/11/23 * Complete Metabolic Panel 01/11/23 Radiology* XR Shoulder Minimum 2 Views Left 12/09/21 * XR Wrist Minimum 3 Views Left 12/09/21 [facility] Evaluation + Plan note Future Appointments Appointment Date:01/12/2023 11:30:00 AM Scheduled Provider:FITZ GA MD Location:[facility] Appointment Type:PC Wellness Primetime Enhanced Appointment Date:02/01/2023 11:30:00 AM Scheduled Provider:DAQUAN MERCADO MD Location:PM Office Appointment Type:PM OV Appointment Date:02/02/2023 11:45:00 AM Scheduled Provider: Location:[facility] Appointment Type:CV OV Future Scheduled Tests Laboratory* Complete Blood Count 07/07/22 [facility] Evaluation + Plan note Future Appointments Appointment Date:02/02/2023 11:45:00 AM Scheduled Provider: Location:[facility] Appointment Type:CV OV Appointment Date:03/29/2023 09:30:00 AM Scheduled Provider: Location:[facility] Appointment Type:PC Nurse Lab Appointment Date:04/14/2023 10:30:00 AM Scheduled Provider:FITZ GA MD Location:[facility] Appointment Type:PC OV Future Scheduled Tests Laboratory* Thyroid Stimulating Hormone 04/13/23 * A1C Hemoglobin 04/13/23 * Complete Blood Count 07/07/22 * Complete Blood Count 01/12/23 * Lipid Profile 04/13/23 * Complete Metabolic Panel 04/13/23 [facility] Evaluation + Plan note Future Appointments Appointment Date:04/14/2023 10:30:00 AM Scheduled Provider:FITZ GA MD Location:[facility] Appointment Type:PC OV Future Scheduled Tests Laboratory* Complete Blood Count 07/07/22 * Complete Blood Count 01/12/23 [facility] Evaluation + Plan note Future Appointments Appointment Date:07/14/2023 10:45:00 AM Scheduled Provider:FITZ GA MD Location:[facility] Appointment Type:PC OV Appointment Date:08/03/2023 09:10:00 AM Scheduled Provider:DAQUAN MERCADO MD Location:PM Office Appointment Type:PM OV Appointment Date:08/08/2023 10:45:00 AM Scheduled Provider: Location:[facility] Appointment Type:CV OV [facility] Evaluation + Plan note Future Appointments Appointment Date:02/13/2024 11:00:00 AM Scheduled Provider: Location:[facility] Appointment Type:CV OV Appointment Date:04/03/2024 09:00:00 AM Scheduled Provider: Location:[facility] Appointment Type:PC Nurse Lab Appointment Date:04/12/2024 11:00:00 AM Scheduled Provider:FITZ GA MD Location:[facility] Appointment Type:PC OV Future Scheduled Tests Laboratory* Thyroid Stimulating Hormone 04/12/24 * A1C Hemoglobin 04/12/24 * Complete Blood Count 01/12/24 * Lipid Profile 04/12/24 * Complete Metabolic Panel 04/12/24 [facility] Evaluation + Plan note Future Appointments Appointment Date:04/12/2024 11:00:00 AM Scheduled Provider:FITZ GA MD Location:[facility] Appointment Type:PC Wellness Primetime Enhanced Future Scheduled Tests Laboratory* Complete Blood Count 01/12/24 [facility] Evaluation + Plan note Future Appointments Appointment Date:07/19/2024 11:00:00 AM Scheduled Provider:FITZ GA MD Location:[facility] Appointment Type:PC OV Future Scheduled Tests Laboratory* Complete Blood Count 01/12/24 [facility] Evaluation + Plan note Future Appointments Appointment Date:10/13/2023 11:00:00 AM Scheduled Provider:FITZ GA MD Location:[facility] Appointment Type:PC OV Follow Up [facility] Evaluation + Plan note Future Appointments Appointment Date:11/14/2024 02:30:00 PM Scheduled Provider:FITZ GA MD Location:[facility] Appointment Type:PC OV Future Scheduled Tests Laboratory* Complete Blood Count 01/12/24 [facility] Evaluation + Plan note Future Appointments Appointment Date:02/20/2025 03:00:00 PM Scheduled Provider:FITZ GA MD Location:[facility] Appointment Type:PC OV Appointment Date:03/20/2025 10:30:00 AM Scheduled Provider:JESSE NATARAJAN Location:[facility] Appointment Type:CV OV Appointment Date:05/01/2025 11:00:00 AM Scheduled Provider: Location:[facility] Appointment Type:MEDS - Diabetic Individual Visit Future Scheduled Tests Radiology* CT Abdomen and Pelvis w/ contrast 02/12/25 [facility] Evaluation + Plan note Future Appointments Appointment Date:02/20/2025 09:30:00 AM Scheduled Provider:FITZ GA MD Location:[facility] Appointment Type:PC OV Appointment Date:03/20/2025 10:30:00 AM Scheduled Provider:JESSE NATARAJAN Location:[facility] Appointment Type:CV OV Appointment Date:05/01/2025 11:00:00 AM Scheduled Provider: Location:[facility] Appointment Type:MEDS - Diabetic Individual Visit [facility] Evaluation + Plan note Future Appointments Appointment Date:03/06/2025 01:30:00 PM Scheduled Provider:FITZ GA MD Location:[facility] Appointment Type:PC OV Follow Up Appointment Date:03/20/2025 10:30:00 AM Scheduled Provider:JESSE NATARAJAN Location:[facility] Appointment Type:CV OV Appointment Date:05/01/2025 11:00:00 AM Scheduled Provider: Location:[facility] Appointment Type:MEDS - Diabetic Individual Visit [facility] Evaluation + Plan note Future Appointments Appointment Date:03/20/2025 10:30:00 AM Scheduled Provider:JESSE NATARAJAN Location:[facility] Appointment Type:CV OV Appointment Date:05/01/2025 11:00:00 AM Scheduled Provider: Location:[facility] Appointment Type:MEDS - Diabetic Individual Visit Appointment Date:05/26/2025 09:30:00 AM Scheduled Provider: Location:[facility] Appointment Type:PC Nurse Lab Appointment Date:06/05/2025 11:30:00 AM Scheduled Provider:FITZ GA MD Location:[facility] Appointment Type:[facility] Evaluation + Plan note Future Appointments Appointment Date:04/18/2025 09:00:00 AM Scheduled Provider: Location:[facility] Appointment Type:Echo - Echocardiogram Adult Appointment Date:05/01/2025 11:00:00 AM Scheduled Provider: Location:[facility] Appointment Type:MEDS - Diabetic Individual Visit Appointment Date:05/26/2025 09:30:00 AM Scheduled Provider: Location:[facility] Appointment Type:PC Nurse Lab Appointment Date:06/05/2025 11:30:00 AM Scheduled Provider:FITZ GA MD Location:[facility] Appointment Type:[facility] Evaluation + Plan note Future Appointments Appointment Date:05/01/2025 11:00:00 AM Scheduled Provider: Location:[facility] Appointment Type:MEDS - Diabetic Individual Visit Appointment Date:05/26/2025 09:30:00 AM Scheduled Provider: Location:[facility] Appointment Type:PC Nurse Lab Appointment Date:06/05/2025 11:30:00 AM Scheduled Provider:FITZ GA MD Location:[facility] Appointment Type:[facility] Evaluation + Plan note Future Appointments Appointment Date:05/26/2025 09:30:00 AM Scheduled Provider: Location:[facility] Appointment Type:PC Nurse Lab Appointment Date:06/03/2025 09:30:00 AM Scheduled Provider:FITZ GA MD Location:[facility] Appointment Type:[facility] Evaluation + Plan note Future Appointments Appointment Date:06/17/2025 11:30:00 AM Scheduled Provider:FITZ GA MD Location:[facility] Appointment Type:[facility] Evaluation + Plan note Future Appointments Appointment Date:09/01/2025 10:45:00 AM Scheduled Provider:JESSE NATARAJAN Location:[facility] Appointment Type:CV OV [facility] Hospital course Narrative No data available for this section [facility] Hospital Discharge instructions No data available for this section [facility] Note* Noah Swain L: PERFORM Event Display: Pain Management Treatment Agreement Authored Date: [id number] [facility] Progress note No data available for this section [facility] Summary Purpose Family History [...] section and content) DATE CREATED AUTHOR 11/28/2021 [facility] Susan [employer] DATE CREATED AUTHOR AUTHOR'S ORGANIZ ATION 04/08/2024 [facility] ([place]) DATE CREATED AUTHOR AUTHOR'S ORGANIZ ATION 03/23/2025 [facility] DATE CREATED AUTHOR AUTHOR'S ORGANIZ ATION 08/03/2025 [facility] DATE CREATED AUTHOR AUTHOR'S ORGANIZ ATION 08/20/2025 [facility] Care Team (unrecognized sect ion and content) Personnel Name: FITZ GA MD Address: [address] [place] [address] [place] [address]- [place] Name: Yanira Liz Personnel Name: FITZ GA MD Address: [place] [address]- [place] Name: Yanira Liz Care Team Personnel Name: ANTOLIN DICKENS Position: P4 Advanced Burlesque Dancer Member Role: Pain Management Address: Address: [address] [facility] [address] [facility] [place] [address]- [place] Name: Yanira Liz Position: P3 Scheduling - Railroad Dining Car Stewardess Advanced Member Role: Other Name: DAQUAN MERCADO MD Position: P4 Physician - General Surgery Member Role: Pain Management Address: Address: [address] [facility] [place] [address]- [place] Name: FITZ GA MD Position: P4 Physician - Primary Care Member Role: Primary Care Physician Address: Address: [place] [id number] Name: Britni Otto Position: Quality Review Member Role: Ip Litigation Paralegal Care Team Related Persons Name: MALVIN MASON Address: [id number] [place] [phone] [place] Care Team Personnel Name: ANTOLIN DICKENS Position: P4 Advanced Burlesque Dancer Member Role: Pain Management Address: Address: [address] [facility] [place] [address]- [place] Name: Yanira Liz Position: P3 Scheduling - Railroad Dining Car Stewardess Advanced Member Role: Other Name: DAQUAN MERCADO MD Position: P4 Physician - General Surgery Member Role: Pain Management Address: Address: [address] [facility] [place] [address]- [place] Name: FITZ GA MD Position: P4 Physician - Primary Care Member Role: Primary Care Physician Address: Address: [address] [place], [place] [id number]- Name: Britni Otto Position: Quality Review Member Role: Ip Litigation Paralegal Care Team Related Persons Name: MALVIN MASON Address: Home [address] [place] [phone] [place] Care Team Personnel Name: ANTOLIN DICKENS Position: P4 Advanced Burlesque Dancer Member Role: Pain Management Address: Address: [address] [facility] [place] [address]- [place] Name: Yanira Liz Position: P3 Scheduling - Railroad Dining Car Stewardess Advanced Member Role: Other Name: DAQUAN MERCADO MD Position: P4 Physician - General Surgery Member Role: Pain Management Address: Address: [address] [facility] [place] [address]- [place] Name: FITZ GA MD Position: P4 Physician - Primary Care Member Role: Primary Care Physician Address: Address: [place] [address]- [place] Name: Britni Otto Position: Quality Review Member Role: Ip Litigation Paralegal Care Team Related Persons Name: MALVIN MASON Address: [address] [phone] Care Team Personnel Name: ANTOLIN DICKENS Position: P4 Advanced Burlesque Dancer Member Role: Pain Management Address: Address: [address] [facility] [place] [address]- [place] Name: Yanira Liz Position: P3 Scheduling - Railroad Dining Car Stewardess Advanced Member Role: Other Name: DAQUAN MERCADO MD Position: P4 Physician - General Surgery Member Role: Pain Management Address: Address: [address] [facility] [place] [address]- [place] Name: FITZ GA MD Position: P4 Physician - Primary Care Member Role: Primary Care Physician Address: Address: [place] [address]- Name: Britni Otto Position: Quality Review Member Role: Ip Litigation Paralegal Care Team Related Persons Name: KWAKU MASON Care Team Personnel Name: ANTOLIN DICKENS Position: Hospitalist Advanced Practice Nurse Member Role: Pain Management Address: Address: [address] [place] [address]- [place] Name: Yanira Liz LPN Position: BULB SORTER Member Role: Other Name: DAQUAN MERCADO MD Position: P4 Physician - General Surgery Member Role: Pain Management Address: Address: [address] [facility] [place], [place] [address] Name: FITZ GA MD Position: P4 Physician - Primary Care Member Role: Primary Care Physician Address: Address: [place] [address]- [place] Name: Britni Otto Position: Quality Review Member Role: Ip Litigation Paralegal Care Team Related Persons Name: KWAKU MASON Care Team Personnel Name: ANTOLIN DICKENS Position: Hospitalist Advanced Practice Nurse Member Role: Pain Management Address: Address: [facility] [address] [place] [address] Name: Yanira Liz LPN Position: BULB SORTER Member Role: Other Name: DAQUAN MERCADO MD Position: P4 Physician - General Surgery Member Role: Pain Management Address: Address: [address] [facility] [address] Name: FITZ GA MD Position: P4 Physician - Primary Care Member Role: Primary Care Physician Address: Address: [address] Name: Britni Otto Position: Quality Review Member Role: Ip Litigation Paralegal Care Team Related Persons Name: KWAKU MASON Care Team Personnel Name: ANTOLIN DICKENS Position: Hospitalist Advanced Practice Nurse Member Role: Pain Management Address: Address: [address] [place] [address] Name: Yanira Liz LPN Position: BULB SORTER Member Role: Other Name: DAQUAN MERCADO MD Position: P4 Physician - General Surgery Member Role: Pain Management Address: Address: [address] [facility] Pain Management [place], [place] [address] Name: FITZ GA MD Position: P4 Physician - Primary Care Member Role: Primary Care Physician Address: Address: [place], [place] [address] Name: Britni Otto Position: Quality Review Member Role: Ip Litigation Paralegal Care Team Related Persons Name: KWAKU MASON Care Team Personnel Name: ANTOLIN DICKENS Position: P4 Advanced Burlesque Dancer Member Role: Pain Management Address: Address: [address] [facility] [place], [place] [address] Name: Yanira Liz Position: P3 Scheduling - Railroad Dining Car Stewardess Advanced Member Role: Other Name: DAQUAN MERCADO MD Position: P4 Physician - General Surgery Member Role: Pain Management Address: Address: [address] [facility] [place], [place] [address] Name: FITZ GA MD Position: P4 Physician - Primary Care Member Role: Primary Care Physician Address: Address: [address] Name: Britni Otto Position: Quality Review Member Role: Ip Litigation Paralegal Care Team Related Persons Name: KWAKU MASON Care Team Personnel Name: ANTOLIN DICKENS Position: Hospitalist Advanced Practice Nurse Member Role: Pain Management Address: [address] [place] [address] Telecom: Name: DAQUAN MERCADO MD Position: P4 Physician - General Surgery Member Role: Pain Management Address: [address] [facility] [place], [place] [address] Telecom: Name: Yanira Chen LPN Position: BULB SORTER Member Role: Other Name: FITZ GA MD Position: P4 Physician - Primary Care Member Role: Primary Care Physician Address: [address] Telecom: Name: Britni Otto Position: Quality Review Member Role: Ip Litigation Paralegal Care Team Related Persons Name: KWAKU MASON Care Team Personnel Name: ANTOLIN DICKENS Position: Hospitalist Advanced Practice Nurse Member Role: Pain Management Address: [address] [place] [address] Telecom: Name: DAQUAN MERCADO MD Member Role: Pain Management Address: [address] [facility] [place] [address]- [place] Telecom: Name: Yanira Chen LPN Position: BULB SORTER Member Role: Other Name: FITZ GA MD Position: P4 Physician - Primary Care Member Role: Primary Care Physician Address: [address] [place], [place] [address] Telecom: Name: Britni Otto Position: Quality Review Member Role: Ip Litigation Paralegal Care Team Related Persons Name: KWAKU MASON Care Team Personnel Name: ANTOLIN DICKENS Position: Hospitalist Advanced Practice Nurse Member Role: Pain Management Address: [address] [place] [phone] [place] Telecom: Name: DAQUAN MERCADO MD Member Role: Pain Management Address: [address] [facility] [place] [place] [address]- [place] Telecom: Name: Yanira Chen LPN Position: BULB SORTER Member Role: Other Name: FITZ GA MD Position: P4 Physician - Primary Care Member Role: Primary Care Physician Address: [address] Telecom: Name: Britni Otto Position: Quality Review Member Role: Ip Litigation Paralegal Care Team Related Persons Name: KWAKU MASON Care Team Personnel Name: ANTOLIN DICKENS Position: Hospitalist Advanced Practice Nurse Member Role: Pain Management Address: [address] [place] [address]- [place] Telecom: Name: DAQUAN MERCADO MD Member Role: Pain Management Address: [address] [facility] [place] [address]- [place] Telecom: Name: Yanira Chen LPN Position: BULB SORTER Member Role: Other Name: FITZ GA MD Position: P4 Physician - Primary Care Member Role: Primary Care Physician Address: [address] [place] [address] Telecom: Name: Britni Otto Position: Quality Review Member Role: Ip Litigation Paralegal Care Team Related Persons Name: KWAKU MASON Care Team Personnel Name: ANTOLIN DICKENS Position: Hospitalist Advanced Practice Nurse Member Role: Pain Management Address: [address] Telecom: Name: DAQUAN MERCADO MD Member Role: Pain Management Address: [address] [facility] [place] [address]- [place] Telecom: Name: Yanira Chen LPN Position: BULB SORTER Member Role: Other Name: FITZ GA MD Position: P4 Physician - Primary Care Member Role: Primary Care Physician Address: [address] [place] [address] Telecom: Name: Britni Otto Position: Quality Review Member Role: Ip Litigation Paralegal Care Team Related Persons Name: SUZIEJULIO KWAKU Care Team Personnel Name: ANTOLIN DICKENS Position: Hospitalist Advanced Practice Nurse Member Role: Pain Management Address: [address] Telecom: Name: DAQUAN MRECADO MD Member Role: Pain Management Address: [address] [facility] [place] [address]- [place] Telecom: Name: Yanira Chen LPN Position: BULB SORTER Member Role: Other Name: FITZ GA MD Position: P4 Physician - Primary Care Member Role: Primary Care Physician Address: [address] [place] [address] Telecom: Name: Britni Otto Position: Quality Review Member Role: Ip Litigation Paralegal Care Team Related Persons Name: KWAKU MASON Care Team Personnel Name: ANTOLIN DICKENS Position: Hospitalist Advanced Practice Nurse Member Role: Pain Management Address: [address] Telecom: Name: DAQUAN MERCADO MD Member Role: Pain Management Address: [address] [facility] [place] [address] [place] Telecom: Name: Yanira Chen LPN Position: BULB SORTER Member Role: Other Name: FITZ GA MD Position: P4 Physician - Primary Care Member Role: Primary Care Physician Address: [address] [place] Telecom: Name: Britni Otto Position: Quality Review Member Role: Ip Litigation Paralegal Care Team Related Persons Name: KWAKU MASON Care Team Personnel Name: ANTOLIN DICKENS Position: Hospitalist Advanced Practice Nurse Member Role: Pain Management Address: [address] [place] [address] Telecom: Name: DAQUAN MERCADO MD Member Role: Pain Management Address: [address] [facility] Pain Management [place], [place] [address] Telecom: Name: Yanira Chen LPN Position: BULB SORTER Member Role: Other Name: FITZ GA MD Position: P4 Physician - Primary Care Member Role: Primary Care Physician Address: [address] [place] Telecom: Name: Britni Otto Position: Quality Review Member Role: Ip Litigation Paralegal Care Team Related Persons Name: KWAKU MASON Care Team Personnel Name: ANTOLIN DICKENS Position: Hospitalist Advanced Practice Nurse Member Role: Pain Management Address: [address] [place] [address]- [place] Telecom: Name: DAQUAN MERCADO MD Member Role: Pain Management Address: [address] [facility] [place] [address]- [place] Telecom: Name: Yanira Chen LPN Position: BULB SORTER Member Role: Other Name: FITZ GA MD Position: P4 Physician - Primary Care Member Role: Primary Care Physician Address: [address] [place] Telecom: Name: Britni Otto Position: Quality Review Member Role: Ip Litigation Paralegal Care Team Related Persons Name: KWAKU MASON Care Team Personnel Name: ANTOLIN DICKENS Position: Hospitalist Advanced Practice Nurse Member Role: Pain Management Address: [address] Telecom: Name: DAQUAN MERCADO MD Member Role: Pain Management Address: [address] [facility] [place], [place] [address] Telecom: Name: Yanira Chen LPN Position: BULB SORTER Member Role: Other Name: FITZ GA MD Position: P4 Physician - Primary Care Member Role: Primary Care Physician Address: [address] Telecom: Name: Britni Otto Position: Quality Review Member Role: Ip Litigation Paralegal Care Team Related Persons Name: KWAKU MASON Care Team Personnel Name: ANTOLIN DICKENS Position: Hospitalist Advanced Practice Nurse Member Role: Pain Management Address: [address] Telecom: Name: DAQUAN MERCADO MD Member Role: Pain Management Address: [address] [facility] [place] [address]- [place] Telecom: Name: Yanira Chen BULB SORTER Position: BULB SORTER Member Role: Other Name: FITZ GA MD Position: P4 Physician - Primary Care Member Role: Primary Care Physician Address: [address] [place] [phone] Telecom: Name: Britni Otto Position: Quality Review Member Role: Ip Litigation Paralegal Care Team Related Persons Name: ISABELLA KWAKU Care Team (unrecognized sect ion and content) Care Team Personnel Name: ANTOLIN DICKENS Position: P4 Advanced Practice Nurse Med Service: Active Provider Member Role: Pain Management Address: Address: [address] [facility] [place], [place] [address] Name: Yanira Liz Position: P3 Scheduling - Railroad Dining Car Stewardess Advanced Member Role: Other Name: DQAUAN MERCADO MD Position: P4 Physician - General Surgery Med Service: Active Provider Member Role: Pain Management Address: Address: [address] [facility] [place], [place] [address] Name: FITZ GA MD Position: P4 Physician - Primary Care Med Service: Active Provider Member Role: Primary Care Physician Address: Address: [address] [place] [address] Name: Britni Otto Position: Quality Review Member Role: Ip Litigation Paralegal Name: BUNNY Chilel Position: AO RN Member Role: Ip Litigation Paralegal Care Team Related Persons Name: ISABELLA MALVIN Address: [address] [phone] Care Team Personnel Name: ANTOLIN DICKENS Position: P4 Advanced Practice Nurse Med Service: Active Provider Member Role: Pain Management Address: Address: [address] [facility] [place] [address]- Name: Yanira Liz Position: P3 Scheduling - Railroad Dining Car Stewardess Advanced Member Role: Other Name: DAQUAN MERCADO MD Position: P4 Physician - General Surgery Med Service: Active Provider Member Role: Pain Management Address: Address: [address] [facility] [place] [address]- Name: FITZ GA MD Position: P4 Physician - Primary Care Med Service: Active Provider Member Role: Primary Care Physician Address: Address: [address] [place] [address] Name: Britni Otto Position: Quality Review Member Role: Ip Litigation Paralegal Name: BUNNY Chilel Position: P3 photo technologist Member Role: Ip Litigation Paralegal Care Team Related Persons Name: MALVIN MASON Address: Home [address] [place] [phone] [place] Care Team Personnel Name: ANTOLIN DICKENS APRN-ALUMINUM POURER Position: P4 Advanced Practice Nurse Address: Address: [address] [facility] [place], [place] [address] Name: Yanira Liz Position: P3 Scheduling - Railroad Dining Car Stewardess Advanced Member Role: Other Name: DAQUAN MERCADO MD Position: P4 Physician - General Surgery Address: Address: [address] [facility] [place], [place] [address] Name: FITZ GA MD Position: P4 Physician - Primary Care Member Role: Primary Care Physician Address: Address: [address] [place] [address] [facility] Position: Quality Review Member Role: Ip Litigation Paralegal Name: BUNNY Chilel Position: AO RN Member Role: Ip Litigation Paralegal Care Team Related Persons Name: ISABELLAMALVIN Address: Home [address] [place] [phone] Care Team Personnel Name: ANTOLIN DICKENSALUMINUM POURER Position: P4 Advanced Practice Nurse Address: Address: [address] [facility] [place], [place] [address] Name: Yanira Liz Position: P3 Scheduling - Railroad Dining Car Stewardess Advanced Member Role: Other Name: DAQUAN MERCADO MD Position: P4 Physician - General Surgery Address: Address: [address] [facility] [place], [place] [address] Name: FITZ GA MD Position: P4 Physician - Primary Care Member Role: Primary Care Physician Address: Address: [address] [facility] [address] [place] [id number] Name: Britni Otto Position: Quality Review Member Role: Ip Litigation Paralegal Name: BUNNY Chilel Position: AO RN Member Role: Ip Litigation Paralegal Name: RODRI SY DO Position: ED Physician Member Role: Attending Physician Address: Address: [address] [place], [place] [address] Care Team Related Persons Name: MALVIN MASON Address: Home [address] [place], [place] [phone] [place] Care Team Personnel Name: ANTOLIN DICKENS APRN-ALUMINUM POURER Position: P4 Advanced Practice Nurse Address: Address: [address] [facility] [address] Name: Yanira Liz Position: P3 Scheduling - Railroad Dining Car Stewardess Advanced Member Role: Other Name: DAQUAN MERCADO MD Position: P4 Physician - General Surgery Address: Address: [address] [facility] [place] [address] Name: FITZ GA MD Position: P4 Physician - Primary Care Member Role: Primary Care Physician Address: Address: [address] [place] [address] Name: Clarita Britnimarcin Ibrahim Position: Quality Review Member Role: Ip Litigation Paralegal Name: BUNNY Chilel Position: AO RN Member Role: Ip Litigation Paralegal Name: HARSHAD TEIXEIRA MD Position: ED Physician Member Role: ED Physician Address: Address: [address] [place] [address]- Name: BUNNY Turner Position: AO RN Member Role: ED RN Care Team Related Persons Name: MALVIN MASON Address: Home [id number] [place] [phone] [place] Care Team Personnel Name: ANTOLIN DICKENS APRN-SHANTELL Position: P4 Advanced Practice Nurse Med Service: Active Provider Member Role: Pain Management Address: Address: [address] [facility] [address] [facility] [place], [place] [address] [place] [address] Name: Yanira Liz Position: P3 Scheduling - Railroad Dining Car Stewardess Advanced Member Role: Other Name: DAQUAN MERCADO MD Position: P4 Physician - General Surgery Med Service: Active Provider Member Role: Pain Management Address: Address: [address] [facility] [place] [address]- Name: FITZ GA MD Position: P4 Physician - Primary Care Med Service: Active Provider Member Role: Primary Care Physician Address: Address: [address] [place] [id number] Name: Britni Otto Position: Quality Review Member Role: Ip Litigation Paralegal Care Team Related Persons Name: MALVIN MASON Address: Home [address] [place], [place] [phone] [place] Care Team Personnel Name: ANTOLIN DICKENS Position: P4 Advanced Practice Nurse Member Role: Pain Management Address: Address: [address] [facility] [place], [place] [address] Name: Yanira Liz Position: P3 Scheduling - Railroad Dining Car Stewardess Advanced Member Role: Other Name: DAQUAN MERCADO MD Position: P4 Physician - General Surgery Member Role: Pain Management Address: Address: [address] [facility] [place] [address]- Name: FITZ GA MD Position: P4 Physician - Primary Care Member Role: Primary Care Physician Address: Address: [address] [facility] [address] [place] [address] Name: Britni Otto Position: Quality Review Member Role: Ip Litigation Paralegal Care Team Related Persons Name: MALVIN MASON Address: Home [address] [place], [place] [phone] Care Team Personnel Name: ANTOLIN DICKENSALUMINUM POURER Position: P4 Advanced Practice Nurse Member Role: Pain Management Address: Address: [address] [facility] [place] [address]- Name: Yanira Liz Position: P3 Scheduling - Railroad Dining Car Stewardess Advanced Member Role: Other Name: DAQUAN MERCADO MD Position: P4 Physician - General Surgery Member Role: Pain Management Address: Address: [address] [place] [address]- [place] Name: FITZ GA MD Position: P4 Physician - Primary Care Member Role: Primary Care Physician Address: Address: [facility] [place] [address]- Name: Britni Otto Position: Quality Review Member Role: Ip Litigation Paralegal Care Team Related Persons Name: MALVIN MASON Address: Home [address] [place], [place] [phone] Care Team Personnel Name: ANTOLIN DICKENS Position: P4 Advanced Practice Nurse Member Role: Pain Management Address: Address: [address] [facility] [place] [address]- Name: Yanira Liz Position: P3 Scheduling - Railroad Dining Car Stewardess Advanced Member Role: Other Name: DAQUAN MERCADO MD Position: P4 Physician - General Surgery Member Role: Pain Management Address: Address: [address] [facility] [place] [address]- Name: FITZ GA MD Position: P4 Physician - Primary Care Member Role: Primary Care Physician Address: Address: [facility] [place] [address]- Name: Britni Otto Position: Quality Review Member Role: Ip Litigation Paralegal Care Team Related Persons Name: MALVIN MASON Address: Home [id number] [place] [phone] Care Team Personnel Name: ANTOLIN DICKENS Position: P4 Advanced Practice Nurse Member Role: Pain Management Address: Address: [address] [facility] [place] [address]- [place] Name: Yanira Liz Position: P3 Scheduling - Railroad Dining Car Stewardess Advanced Member Role: Other Name: DAQUAN MERCADO MD Position: P4 Physician - General Surgery Member Role: Pain Management Address: Address: [address] [facility] [place] [address]- [place] Name: FITZ GA MD Position: P4 Physician - Primary Care Member Role: Primary Care Physician Address: Address: [address] [place] [address]- [place] Name: SarayjulioBritni Position: Quality Review Member Role: Ip Litigation Paralegal Care Team Related Persons Name: MALVIN MASON Address: Home [address] [place] [address] [place] [phone] FOR RECORDS PERTAINING TO PATIENTS WHO ARE [...] BE BASED ON THE PRIMARY CLINICAL RECORDS. [facility] [employer] provides no warranty or guarantee of the accuracy or [phone] in [phone] [id number]
[2025-09-01 08:14] LABS: Hematocrit 25.5 % (37-47); Hemoglobin 8.1 g/dL (12.0-15.0); Mean Corp Hgb Conc 31.8 g/dL (32-36); Mean Corpuscular Volume 98.8 fL (81-99); Mean Platelet Vol. 9.8 fl (6.2-12.0); Platelet Count 132 K/mm3 (150-450); RBC Distribution Width CV 14.4 % (11.6-14.6); RBC Distribution Width SD 52.2 fl (35.1-43.9); Red Blood Count 2.58 M/mm3 (4.2-5.4); White Blood Count 5.1 K/mm3 (4.4-11.0)
== END ==
LOC: OLS.SWAL 05:00
PROVIDERS: Visit Provider Internal Medicine
DX: D64.9 Anemia, unspecified (principal)
CPT/HCPCS: 36415; 85027

== ENCOUNTER → 2025-09-11 05:00 | Outpatient (REF) | payer MEDICARE, SELFPAY ==
--- OUTSIDE RECORDS SUMMARY | 2025-09-11 04:55 | XMS RPT_ITS | CCD ---
Author Organization [place] [employer] [facility] Care Team Providers Care Service Delivery Manager Name Role Phone FITZ GA MD Primary [...] sources) Codeine; Translations: [codeine] Drug Allergy N/V [facility] (20 sources) Penicillin; Translations: [penicillin] Drug Allergy RASH [facility] (20 sources) predniSONE; Translations: [prednisone] Drug Allergy Nausea (finding) [facility] (20 sources) Tetracycline; Translations: [tetracycline] Drug Allergy Unknown [facility] (20 sources) egg albumin (whites) Allergy to substance Unknown [facility] Medications Current Medications Medication Drug [...] BID, # 180 tab(s), 3 Refill(s), Pharmacy: [facility], 157.5, cm, 03/20/25 10:23:00 EDT, Height, 68.4, kg, 03/20/25 10:23:00 EDT, Dosing Weight Start Date: 04/29/25 Stop Date: 04/24/26 Status: Ordered Medication Dispense Status: Completed Quantity: 180.0 Unit: tab(s) Total Allowed Fills: 4 Fills Dispensed: 0 Start: 10-13-2022 End: 04-07-2025 Eliquis 5 mg oral tablet Dos e : 5 mg = 1 tab(s), Oral, BID, # 180 tab(s), 3 Refill(s), Pharmacy: [facility], 157, cm, 04/12/24 11:01:00 EDT, [...] qDay, # 90 tab(s), 3 Refill(s), Pharmacy: [facility], 157, cm, 03/06/25 13:18:00 EDT, Height, kg, 03/06/25 13:18:00 EDT, Dosing Weight Start Date: 03/18/25 Stop Date: 03/13/26 Status: Ordered Medication Dispense Status: Completed Quantity: 90.0 Unit: tab(s) Total Allowed Fills: 4 Fills Dispensed: 0 Start: 07-14-2023 End: 01-06-2025 atorvastatin 10 mg oral tabl et Dose : 10 mg = 1 tab(s), Oral, qDay, # 90 tab(s), 3 Refill(s), Pharmacy: [facility], 160, cm, 01/12/24 10:53:00 EDT, Height, kg, 01/12/24 10:53:00 EDT, Dosing Weight Start Date: 01/12/24 Stop Date: 01/06/25 Status: Ordered Quantity: 90.0 Unit: tab(s) Repeat number: 4 Start: 09-28-2021 End: 07-02-2023 atorvastatin 10 mg oral tabl et Dose : 10 mg = 1 tab(s), Oral, qDay, # 90 tab(s), 3 Refill(s), [id number], 157, cm, 07/07/22 9:44:00 EDT, Height, kg, 07/07/22 9:44:00 EDT, Dosing Weight Start Date: 07/07/22 Stop Date: 07/02/23 Status: Ordered Start: 08-30-2021 atorvastatin 1 0 mg oral tablet Dose : 10 mg = 1 tab(s), Oral, qDay, # 30 tab(s), 0 Refill(s), [facility] [address] 162, cm, 08/27/21 9:15:00 EST, Height, kg, 08/27/21 9:15:00 EST, Dosing Weight Start Date: 08/30/21 Status: Ordered Start: 08-04-2020 atorvastatin 1 0 mg oral tablet Dose : 10 mg = 1 tab(s), Oral, qDay, # 90 tab(s), 3 Refill(s), [facility] [address] 158, cm, 08/04/20 10:48:00 EDT, Height, kg, 08/04/20 10:48:00 EDT, Dosing Weight Start Date: 08/04/20 Status: Ordered cephalexin 500 mg oral capsule (1 source) Cephalosporin Antibacterial Start: 11-24-2022 End: 12-01-2022 cephalexin 500 mg oral capsule Dose : 500 mg = 1 cap(s), Oral, TID, X 7 day(s), # 21 cap(s), 0 Refill(s), 12/01/22 11:50:00 EST, [facility]acy: [facility] #[id number], Contusion of face Knee contusion, 160, cm, 11/24/22 11:24:00 EST, Height, 76.5 Start Date: 11/24/22 Stop Date: 12/01/22 Status: Ordered cholestyramine resin 4000 mg powder for oral suspension (2 sources) Bile Acid Sequestrant Start: 11-30-2021 cholesty ramine 4 g/9 g oral powder for reconstitution 1 packet(s), Oral, BID, # 60 packet(s), 11 Refill(s), [facility] [address] Sinusitis Diarrhea, 159, cm, 11/30/21 11:16:00 EST, Height, kg, 11/30/21 11:16:00 EST, Dosing Weight Start Date: 11/30/21 Status: Ordered citalopram 40 mg oral tablet (20 sources) Serotonin Reuptake Inhibitor Start: 04-12-2024 citalopram 40 mg ora l tablet Dose : 40 mg = 1 tab(s), Oral, qDay, # 90 tab(s), 3 Refill(s), Pharmacy: [facility], 157, cm, 04/12/24 11:01:00 EDT, Height, kg, 04/12/24 11:01:00 EDT, Dosing Weight Start Date: 04/12/24 Status: Ordered Start: 07-14-2023 citalopram 40 mg oral tablet Dose : 40 mg = 1 tab(s), Oral, qDay, # 90 tab(s), 3 Refill(s), [facility]: [facility] #[id number], 157, cm, 07/14/23 10:36:00 EDT, Height, kg, 07/14/23 10:36:00 EDT, Dosing Weight Start Date: 07/14/23 Status: Ordered Start: 04-14-2023 citalopram 20 mg oral tablet Dose : 20 mg = 1 tab(s), Oral, qDay, # 90 tab(s), 3 Refill(s), [facility]: [facility] #[id number], 160, cm, 04/14/23 10:24:00 EDT, Height, kg, 04/14/23 10:24:00 EDT, Dosing Weight Start Date: 04/14/23 Status: Ordered Start: 07-07-2022 citalopram 20 mg oral tablet Dose : 20 mg = 1 tab(s), Oral, qDay, # 90 tab(s), 3 Refill(s), [facility]: [facility] #[id number], 157, cm, 07/07/22 9:44:00 EDT, Height, kg, [...] qDay, # 30 tab(s), 11 Refill(s), Pharmacy: [facility], 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 (CKD), 157, cm, 04/12/24 11:01:00 EDT, Height, kg, 04/12/24 11:01:00 EDT, Dosing Weight Start Date: 07/09/24 Status: Ordered Start: 07-14-2023 Farxiga 10 mg oral tablet Dose : 10 mg = 1 tab(s), Oral, qDay, # 30 tab(s), 11 Refill(s), [facility]: [facility] #[id number], Type 2 diabetes mellitus with chronic kidney [...] qDay, # 90 tab(s), 3 Refill(s), Pharmacy: [facility], Diabetes Diastolic dysfunction, 157, cm, [...] qDay, # 90 tab(s), 3 Refill(s), Pharmacy: [facility], Diabetes Diastolic dysfunction, 157, cm, 12/05/24 [...] 0 Refill(s), 01/19/24 11:45:00 AM EDT, Pharmacy: [facility], Well adult exam Acquired hypothyroidism, 160, cm, 01/12/24 10:53:00 EDT, Height, 71.7, kg, 01/12/24 10:53:00 EDT, Dosing Weight Start Date: 01/12/24 Stop Date: 01/19/24 Status: Ordered furosemide 20 mg oral tablet (20 sources) Loop Diuretic Start: 12-05-2024 furosemide 20 mg oral tablet Dose : 20 mg = 1 tab(s), Oral, qDay, # 90 tab(s), 3 Refill(s), Pharmacy: [facility], 157, cm, 12/05/24 14:45:00 EST, Height, kg, 12/05/24 14:45:00 EST, Dosing Weight Start Date: 12/05/24 Status: Ordered Medication Dispense Status: Completed Quantity: 90.0 Unit: tab(s) Total Allowed Fills: 4 Fills Dispensed: 0 Start: 04-12-2024 End: 07-11-2024 furosemide 40 mg oral tablet Dose : 20 mg = 0.5 tab(s), Oral, Daily, # 15 tab(s), 2 Refill(s), Pharmacy: [facility], Hyperlipidemia Acquired hypothyroidism, 157, cm, 04/12/24 11:01:00 EDT, Height, kg, 04/12/24 11:01:00 EDT, Dosing Weight Start Date: 04/12/24 Stop Date: 07/11/24 Status: Ordered Start: 03-03-2023 Lasix 20 mg or al tablet Dose : 20 mg = 1 tab(s), Oral, Daily, # 90 tab(s), 1 Refill(s), [facility]: [facility] #[id number], 160, cm, 02/02/23 11:34:00 EDT, Height, kg, 02/02/23 11:34:00 EDT, Dosing Weight Start Date: 03/03/23 Status: Ordered Start: 09-28-2021 Lasix 20 mg or al tablet Dose : 20 mg = 1 tab(s), Oral, Daily, # 90 tab(s), 0 Refill(s), [facility]: [facility] #[id number], 160, cm, 11/24/22 11:24:00 EST, Height, kg, [...] TID, # 270 cap(s), 3 Refill(s), Pharmacy: [facility], Lumbar spinal stenosis, 157, cm, 04/12/24 11:01:00 EDT, Height, 72.3, kg, 04/12/24 11:01:00 EDT, Dosing Weight Start Date: 04/12/24 Stop Date: 04/07/25 Status: Ordered Start: 01-12-2024 End: 07-10-2024 gabapentin 600 mg oral table t Dose : 600 mg = 1 tab(s), Oral, TID, # 270 tab(s), 1 Refill(s), Pharmacy: [facility], Neuropathy, 160, cm, 01/12/24 10:53:00 EDT, Height, 71.7, kg, 01/12/24 10:53:00 EDT, Dosing Weight Start Date: 01/12/24 Stop Date: 07/10/24 Status: Ordered Start: 02-01-2023 End: 01-10-2024 gabapentin 600 mg oral table t Dose : 600 mg = 1 tab(s), Oral, TID, # 270 tab(s), 1 Refill(s), [facility]: [facility] #[id number], Neuropathy, 157, cm, 07/14/23 10:36:00 EDT, Height, 75.6, kg, 07/14/23 10:36:00 EDT, Dosing Weight Start Date: 07/14/23 Stop Date: 01/10/24 Status: Ordered Start: 06-03-2022 End: 01-29-2023 gabapentin 600 mg oral table t Dose : 600 mg = 1 tab(s), Oral, TID, # 270 tab(s), 1 Refill(s), [facility]: [facility] #[id number], Neuropathy, 160, cm, 08/02/22 10:34:00 EDT, Height, [...] bedtime, # 120 tab(s), 2 Refill(s), Pharmacy: [address], Lumbar spinal stenosis, 162.6, cm, 03/03/22 [...] bedtime, # 120 tab(s), 2 Refill(s), Pharmacy: [address], Lumbar spinal stenosis, 157.5, cm, 10/26/21 [...] qDay, # 30 tab(s), 2 Refill(s), Pharmacy: [facility], 157, cm, 12/05/24 14:45:00 EST, Height, kg, 01/02/25 14:37:00 EDT, Dosing Weight Start Date: 01/09/25 Status: Ordered Quantity: 30.0 Unit: tab(s) Repeat number: 3 Start: 06-14-2023 glimepiride 1 mg oral tablet Dose : 1 mg = 1 tab(s), Oral, qDay, # 90 tab(s), 3 Refill(s), [facility]: [facility] #[id number], 157, cm, 06/07/23 14:25:00 EDT, Height, kg, 06/07/23 14:25:00 EDT, Dosing Weight Start Date: 06/14/23 Status: Ordered Start: 03-31-2022 glimepiride 1 mg oral tablet Dose : 1 mg = 1 tab(s), Oral, qDay, # 90 tab(s), 3 Refill(s), [facility]: [facility] 158, cm, 03/31/22 11:03:00 EDT, Height Start Date: 03/31/22 Status: Ordered Start: 02-17-2022 glimepiride 2 mg oral tablet Dose : 2 mg = 1 tab(s), Oral, qDay, # 90 tab(s), 3 Refill(s), [facility]acy: [facility] 158.5, cm, 02/17/22 8:57:00 [...] qDayAC, # 90 tab(s), 3 Refill(s), Pharmacy: [facility], 157, cm, 03/06/25 13:18:00 EDT, Height, kg, 03/06/25 13:18:00 EDT, Dosing Weight Start Date: 03/06/25 Status: Ordered Medication Dispense Status: Completed Quantity: 90.0 Unit: tab(s) Total Allowed Fills: 4 Fills Dispensed: 0 Start: 10-13-2023 levothyroxine 25 mcg (0.025 mg) oral tablet Dose : 25 mcg = 1 tab(s), Oral, qDayAC, # 90 tab(s), 3 Refill(s), Pharmacy: [facility], 160, cm, 10/13/23 10:47:00 EST, Height, kg, 10/13/23 10:47:00 EST, Dosing Weight Start Date: 10/13/23 Status: Ordered Start: 07-14-2023 levothyroxine 50 mcg (0.05 mg) oral tablet Dose : 50 mcg = 1 tab(s), Oral, qDay, # 90 tab(s), 3 Refill(s), [facility]: [facility] #[id number], 157, cm, 07/14/23 10:36:00 EDT, Height, kg, 07/14/23 10:36:00 EDT, Dosing Weight Start Date: 07/14/23 Status: Ordered Start: 07-07-2023 levothyroxine 50 mcg (0.05 mg) oral tablet Dose : 50 mcg = 1 tab(s), Oral, qDay, # 90 tab(s), 3 Refill(s), [id number], 160, cm, 04/14/23 10:24:00 EDT, Height, kg, 04/14/23 10:24:00 EDT, Dosing Weight Start Date: 04/14/23 Status: Ordered Start: 07-07-2022 levothyroxine 50 mcg (0.05 mg) oral tablet Dose : 50 mcg = 1 tab(s), Oral, qDay, # 90 tab(s), 3 Refill(s), [facility]: [facility] #[id number], 157, cm, 07/07/22 9:44:00 EDT, Height, kg, [...] qHS, # 30 tab(s), 2 Refill(s), Pharmacy: [facility], [facility], 157.5, cm, 05/09/25 10:33:00 EDT, Height, 67, [...] 0 Refill(s), 03/02/25 3:21:00 PM EDT, Pharmacy: [facility], Major depressive disorder, 157, cm, [...] BID, # 60 tab(s), 8 Refill(s), Pharmacy: [facility], 157.5, cm, 05/09/25 10:33:00 EDT, [...] release), # 180 tab(s), 1 Refill(s), Pharmacy: [facility], 157.5, cm, 03/20/25 10:23:00 EDT, [...] qDay, # 90 tab(s), 3 Refill(s), Pharmacy: [facility], 157, cm, 12/05/24 14:45:00 EST, [...] 90 tab(s), 3 Refill(s), [facility]: [facility] #[id number], 157, cm, 07/07/22 9:44:00 EDT, Height, kg, [...] qDay, # 30 tab(s), 11 Refill(s), Pharmacy: [facility], 157.5, cm, 06/17/25 11:12:00 EDT, Height, [...] 90 tab(s), 1 Refill(s), [facility]: [facility] #[id number], 160, cm, 02/02/23 11:34:00 EDT, Height, kg, 02/02/23 11:34:00 EDT, Dosing Weight Start Date: 03/03/23 Status: Ordered Start: 09-28-2021 potassium chlo ride 8 mEq (600 mg) oral tablet, extended release Dose : 8 mEq = 1 tab(s), Oral, qDay, take with food., # 90 tab(s), 0 Refill(s), [facility]: [facility] #[id number], 160, cm, 11/24/22 11:24:00 EST, Height, kg, [...] 180 tab(s), 3 Refill(s), [facility]: [facility] #[id number], 160, cm, 04/14/23 10:24:00 EDT, Height, kg, 04/14/23 10:24:00 EDT, Dosing Weight Start Date: 04/14/23 Status: Ordered Start: 07-07-2022 sotalol 80 mg oral tablet Dose : 80 mg = 1 tab(s), Oral, BID, # 180 tab(s), 3 Refill(s), [facility]: [facility] #[id number], 157, cm, 07/07/22 9:44:00 EDT, Height, kg, [...] day(s), # 28 tab(s), 0 Refill(s), Pharmacy: [facility], 157, cm, 02/20/25 9:22:00 EDT, [...] qHS, # 30 tab(s), 1 Refill(s), Pharmacy: [facility], 157.5, cm, 03/20/25 10:23:00 EDT, Height, kg, 03/20/25 10:23:00 EDT, Dosing Weight Start Date: 04/22/25 Stop Date: 06/21/25 Status: Ordered Medication Dispense Status: Completed Quantity: 30.0 Unit: tab(s) Total Allowed Fills: 2 Fills Dispensed: 0 Start: 02-20-2025 End: 04-21-2025 cyclobenzaprine 10 mg oral t ablet Dose : 10 mg = 1 tab(s), Oral, qHS, # 30 tab(s), 1 Refill(s), Pharmacy: [facility], 157, cm, 02/20/25 9:22:00 EDT, Height, kg, 02/20/25 9:22:00 EDT, Dosing Weight Start Date: 02/20/25 Stop Date: 04/21/25 Status: Ordered Quantity: 30.0 Unit: tab(s) Repeat number: 2 Start: 12-05-2024 End: 06-03-2025 cyclobenzaprine 5 mg oral ta blet Dose : 5 mg = 1 tab(s), Oral, qHS, # 90 tab(s), 1 Refill(s), Pharmacy: [facility], Diabetes Diastolic dysfunction, 157, cm, [...] spasm, # 90 tab(s), 1 Refill(s), Pharmacy: [facility], 157, cm, 04/12/24 11:01:00 EDT, Height, kg, 04/12/24 11:01:00 EDT, Dosing Weight Start Date: 04/12/24 Stop Date: 06/11/24 Status: Ordered Start: 01-02-2024 End: 03-12-2024 cyclobenzaprine 10 mg oral t ablet Dose : 10 mg = 1 tab(s), Oral, TID, PRN for muscle spasm, # 90 tab(s), 1 Refill(s), Pharmacy: [facility], 160, cm, 01/12/24 10:53:00 EDT, Height, kg, 01/12/24 10:53:00 EDT, Dosing Weight Start Date: 01/12/24 Stop Date: 03/12/24 Status: Ordered Start: 07-14-2023 End: 09-12-2023 cyclobenzaprine 10 mg oral t ablet Dose : 10 mg = 1 tab(s), Oral, TID, PRN for muscle spasm, # 90 tab(s), 1 Refill(s), Pharmacy: [facility] #[id number], 157, cm, 07/14/23 10:36:00 EDT, Height, kg, 07/14/23 10:36:00 EDT, Dosing Weight Start Date: 07/14/23 Stop Date: 09/12/23 Status: Ordered Start: 04-14-2023 End: 06-13-2023 cyclobenzaprine 10 mg oral t ablet Dose : 10 mg = 1 tab(s), Oral, TID, PRN for muscle spasm, # 90 tab(s), 1 Refill(s), Pharmacy: [facility] #[id number], 160, cm, 04/14/23 10:24:00 EDT, Height, kg, 04/14/23 10:24:00 EDT, Dosing Weight Start Date: 04/14/23 Stop Date: 06/13/23 Status: Ordered Start: 10-13-2022 End: 12-12-2022 cyclobenzaprine 10 mg oral t ablet Dose : 10 mg = 1 tab(s), Oral, TID, PRN for muscle spasm, # 90 tab(s), 1 Refill(s), Pharmacy: [facility] #[id number], 160, cm, 10/13/22 10:58:00 EST, Height, kg, 10/13/22 10:58:00 EST, Dosing Weight Start Date: 10/13/22 Stop Date: 12/12/22 Status: Ordered Start: 07-07-2022 End: 09-05-2022 cyclobenzaprine 10 mg oral t ablet Dose : 10 mg = 1 tab(s), Oral, TID, PRN for muscle spasm, # 90 tab(s), 1 Refill(s), Pharmacy: [facility] #[id number], 157, cm, 07/07/22 9:44:00 EDT, Height, kg, 07/07/22 9:44:00 EDT, Dosing Weight Start Date: 07/07/22 Stop Date: 09/05/22 Status: Ordered Start: 03-31-2022 End: 05-30-2022 cyclobenzaprine 10 mg oral t ablet Dose : 10 mg = 1 tab(s), Oral, TID, PRN for muscle spasm, # 90 tab(s), 1 Refill(s), [facility]acy: [facility] [address] 158, cm, 03/31/22 11:03:00 EDT, Height Start Date: 03/31/22 Stop Date: 05/30/22 Status: Ordered Start: 02-17-2022 End: 04-18-2022 cyclobenzaprine 5 mg oral ta blet Dose : 5 mg = 1 tab(s), Oral, TID, # 90 tab(s), 1 Refill(s), Pharmacy: [facility] Chronic diarrhea Low back pain, 158.5, cm, 02/17/22 8:57:00 EDT, Height Start Date: 02/17/22 Stop Date: 04/18/22 Status: Ordered Start: 08-10-2021 End: 11-26-2021 cyclobenzaprine 10 mg oral t ablet Dose : 10 mg = 1 tab(s), Oral, qHS, PRN Muscle pain, # 30 tab(s), 1 Refill(s), 11/26/21 15:30:00 EST, Pharmacy: [facility] 162.6, cm, 07/14/21 9:02:00 [...] width (RBC) [Ratio] 14.6 % Normal 11.6-14.6 [facility] Comment on above: Order Comment: 162 Performed By: #### L 100.0500 #### [facility] [address] [place], [address] Hematocrit (Bld) [Volume fraction] 37.7 % Normal 37-47 [facility] Comment on above: Order Comment: 162 Performed By: #### L 100.0500 #### [facility] [address] [place], [address] Hemoglobin (Bld) [Mass/Vol] 11.9 g/dL Low 12.0-15.0 [facility] Comment on above: Order Comment: 162 Performed By: #### L 100.0500 #### [facility] [address] [place], [address] MCH (RBC) [Entitic mass] 31.5 pg Normal 27.0-32.0 [facility] Comment on above: Order Comment: 162 Performed By: #### L 100.0500 #### [facility] [address] [place], [address] MCHC (RBC) [Mass/Vol] 31.6 g/dL Low 32-36 [facility] Comment on above: Order Comment: 162 Performed By: #### L 100.0500 #### [facility] [address] [place], [address] MCV (RBC) [Entitic vol] 99.7 fL High 81-99 [facility] Comment on above: Order Comment: 162 Performed By: #### L 100.0500 #### [facility] [address] [place], [address] Platelet mean volume (Bld) [Entitic vol] 9.4 fL Normal 6.2-12.0 [facility] Comment on above: Order Comment: 162 Performed By: #### L 100.0500 #### [facility] [address] [place], [address] Platelets (Bld) [#/Vol] 192 10*3/uL Normal 150-450 [facility] Comment on above: Order Comment: 162 Performed By: #### L 100.0500 #### [facility] [address] [place], [address] RBC (Bld) [#/Vol] 3.78 10*6/uL Low 4.2-5.4 [facility] Comment on above: Order Comment: 162 Performed By: #### L 100.0500 #### [facility] [address] [place], [address] RDW SD 53.5 fl High 35.1-43.9 [facility] Comment on above: Order Comment: 162 Performed By: #### L 100.0500 #### [facility] [address] [place], [address] WBC (Bld) [#/Vol] 7.2 10*3/uL Normal 4.4-11.0 [facility] Comment on above: Order Comment: 162 Performed By: #### L 100.0500 #### [facility] [address] [place], [address] CRPon 08-12-2025 C-REACTIVE PROT 3.90 mg/L High 0.0-3.0 [facility] Comment on above: Order Comment: DENG Mcelroy ADD CRP TO 08-11-25 BLOOD WORK Performed By: #### L 500.2500, L501.6710, L100.0100, L501.1400 #### [facility] [address] [place], [address] Basic Metabolic Profile (BMP )on 08-11-2025 BUN/CRE 22.6 RATIO High 10-20 [facility] Comment on above: Performed By: #### L 500.2500, L501.6710, L100.0100, L501.1400 #### [facility] [address] [place], [address] Calcium [Mass/Vol] 9.3 mg/dL Normal 7.6-11.0 [facility] Comment on above: Performed By: #### L 500.2500, L501.6710, L100.0100, L501.1400 #### [facility] [address] [place], [address] Chloride [Moles/Vol] 107 mmol/L Normal 98-108 [facility] Comment on above: Performed By: #### L 500.2500, [id number], L100.0100, L501.1400 #### [facility] [address] [place], [address] CO2 [Moles/Vol] 25.6 mmol/L Normal 21.0-32.0 [facility] Comment on above: Performed By: #### L 500.2500, [id number], L100.0100, L501.1400 #### [facility] [address] [place], [address] Creatinine [Mass/Vol] 0.99 mg/dL Normal 0.70-1.20 [facility] Comment on above: Performed By: #### L 500.2500, [id number], L100.0100, L501.1400 #### [facility] [address] [place], [address] GAP 10 Normal 5-15 [facility] Comment on above: Performed By: #### L 500.2500, L501.6710, L100.0100, L501.1400 #### [facility] [address] [place], [address] GFR/1.73 sq M.predicted among non-blacks MDRD (S/P/Bld) [Vol rate/Area] 56 mL/min/{1.73_m2} Low >60 [facility] Comment on above: Result Comment: mL/m in/1.73m2 CKD-EPI Creatinine Equation (2020) Performed By: #### L 500.2500, L501.6710, L100.0100, L501.1400 #### [facility] [address] [place], [address] Glucose [Mass/Vol] 71 mg/dL Normal 70-99 [facility] Comment on above: Performed By: #### L 500.2500, [id number], L100.0100, L501.1400 #### [facility] [address] [place], [address] Potassium [Moles/Vol] 4.2 mmol/L Normal 3.3-5.1 [facility] Comment on above: Performed By: #### L 500.2500, [id number], L100.0100, L501.1400 #### [facility] [address] [place], [address] Sodium [Moles/Vol] 143 mmol/L Normal 133-145 [facility] Comment on above: Performed By: #### L 500.2500, [id number], L100.0100, L501.1400 #### [facility] [address] [place], [address] Urea nitrogen [Mass/Vol] 22 mg/dL High 4-19 [facility] Comment on above: Performed By: #### L 500.2500, L501.6710, L100.0100, L501.1400 #### [facility] [address] [place], [address] CBC W/Diff, Automatedon 11-0 3-2024 Absolute Lymph 1.57 X10 3/uL Normal 0.83-4.51 [facility] Comment on above: Performed By: #### L 500.2500, [id number], L100.0100, L501.1400 #### [facility] [address] [place], [address] Absolute Neut 3.6 X10 3/uL Normal 2.0-7.7 [facility] Comment on above: Performed By: #### L 500.2500, [id number], L100.0100, L501.1400 #### [facility] [address] [facility] [place], [address] Basophils/100 WBC (Bld) 0.9 % Normal 0-1 [facility] Comment on above: Performed By: #### L 500.2500, [id number], L100.0100, L501.1400 #### [facility] [address] [facility] [place], [address] Eosinophils/100 WBC (Bld) 1.0 % Normal 0-5 [facility] Comment on above: Performed By: #### L 500.2500, L501.6710, L100.0100, L501.1400 #### [facility] [address] [facility] [place], [address] Erythrocyte distribution width (RBC) [Ratio] 14.3 % Normal 11.6-14.6 [facility] Comment on above: Performed By: #### L 500.2500, L501.6710, L100.0100, L501.1400 #### [facility] [address] [place], [address] Hematocrit (Bld) [Volume fraction] 28.8 % Low 37-47 [facility] Comment on above: Performed By: #### L 500.2500, L501.6710, L100.0100, L501.1400 #### [facility] [address] [place], [address] Hemoglobin (Bld) [Mass/Vol] 8.9 g/dL Low 12.0-15.0 [facility] Comment on above: Performed By: #### L 500.2500, L501.6710, L100.0100, L501.1400 #### [facility] [address] [place], [address] IG% 0.300 Normal 0.0-0.9 [facility] Comment on above: Result Comment: IG% - Immature Granulocytes (promyelocytes, myelocytes and metamyelocytes) > 1% indicates that a LEFT SHIFT is Present. Performed By: #### L 500.2500, L501.6710, L100.0100, L501.1400 #### [facility] [address] [place], [address] Lymphocytes/100 WBC (Bld) 26.9 % Normal 19-41 [facility] Comment on above: Performed By: #### L 500.2500, L501.6710, L100.0100, L501.1400 #### [facility] [address] [place], [address] MCH (RBC) [Entitic mass] 30.9 pg Normal 27.0-32.0 [facility] Comment on above: Performed By: #### L 500.2500, L501.6710, L100.0100, L501.1400 #### [facility] [address] [place], [address] MCHC (RBC) [Mass/Vol] 30.9 g/dL Low 32-36 [facility] Comment on above: Performed By: #### L 500.2500, L501.6710, L100.0100, L501.1400 #### [facility] [address] [place], [address] MCV (RBC) [Entitic vol] 100.0 fL High 81-99 [facility] Comment on above: Performed By: #### L 500.2500, L501.6710, L100.0100, L501.1400 #### [facility] [address] [place], [address] Monocytes/100 WBC (Bld) 8.9 % Normal 0-10 [facility] Comment on above: Performed By: #### L 500.2500, L501.6710, L100.0100, L501.1400 #### [facility] [facility] [address] [place], [address] Neutrophils/100 WBC (Bld) 62.0 % Normal 47-70 [facility] Comment on above: Performed By: #### L 500.2500, L501.6710, L100.0100, L501.1400 #### [facility] [address] [place], [address] Nucleated RBC (Bld) [#/Vol] 0 10*3/uL Normal 0-5 [facility] Comment on above: Performed By: #### L 500.2500, L501.6710, L100.0100, L501.1400 #### [facility] [address] [place], [address] Platelet mean volume (Bld) [Entitic vol] 9.4 fL Normal 6.2-12.0 [facility] Comment on above: Performed By: #### L 500.2500, L501.6710, L100.0100, L501.1400 #### [facility] [address] [place], [address] Platelets (Bld) [#/Vol] 163 10*3/uL Normal 150-450 [facility] Comment on above: Performed By: #### L 500.2500, L501.6710, L100.0100, L501.1400 #### [facility] [address] [place], [address] RBC (Bld) [#/Vol] 2.88 10*6/uL Low 4.2-5.4 [facility] Comment on above: Performed By: #### L 500.2500, L501.6710, L100.0100, L501.1400 #### [facility] [address] [place], [address] RDW SD 51.6 fl High 35.1-43.9 [facility] Comment on above: Performed By: #### L 500.2500, L501.6710, L100.0100, L501.1400 #### [facility] [address] [place], [address] WBC (Bld) [#/Vol] 5.8 10*3/uL Normal 4.4-11.0 [facility] Comment on above: Performed By: #### L 500.2500, L501.6710, L100.0100, L501.1400 #### [facility] [address] [place], [address] Uric Acidon 08-11-2025 URIC 7.3 mg/dL High 2.6-6.0 [facility] Comment on above: Result Comment: The drugs N-Acetylcysteine and Metamizole may falsely depress this assay. Performed By: #### L 500.2500, L501.6710, L100.0100, L501.1400 #### [facility] [address] [place], [address] Basic Metabolic Profile (BMP )on 06-23-2025 BUN/CRE 14.3 RATIO Normal 10-20 [facility] Comment on above: Order Comment: 162 Performed By: #### L 500.2500 #### [facility] [address] [place], [address] Calcium [Mass/Vol] 9.1 mg/dL Normal 7.6-11.0 [facility] Comment on above: Order Comment: 162 Performed By: #### L 500.2500 #### [facility] [address] [place], [address] Chloride [Moles/Vol] 106 mmol/L Normal 98-108 [facility] Comment on above: Order Comment: 162 Performed By: #### L 500.2500 #### [facility] [address] [place], [address] CO2 [Moles/Vol] 26.1 mmol/L Normal 21.0-32.0 [facility] Comment on above: Order Comment: 162 Performed By: #### L 500.2500 #### [facility] [address] [place], [address] Creatinine [Mass/Vol] 0.95 mg/dL Normal 0.70-1.20 [facility] Comment on above: Order Comment: 162 Performed By: #### L 500.2500 #### [facility] [address] [place], [address] GAP 11 Normal 5-15 [facility] Comment on above: Order Comment: 162 Performed By: #### L 500.2500 #### [facility] [address] [place], [address] GFR/1.73 sq M.predicted among non-blacks MDRD (S/P/Bld) [Vol rate/Area] 59 mL/min/{1.73_m2} Low >60 [facility] Comment on above: Order Comment: 162 Result Comment: mL/m in/1.73m2 CKD-EPI Creatinine Equation (2020) Performed By: #### L 500.2500 #### [facility] [address] [place], [address] Glucose [Mass/Vol] 105 mg/dL High 70-99 [facility] Comment on above: Order Comment: 162 Performed By: #### L 500.2500 #### [facility] [address] [place], [address] Potassium [Moles/Vol] 4.2 mmol/L Normal 3.3-5.1 [facility] Comment on above: Order Comment: 162 Performed By: #### L 500.2500 #### [facility] [address] [place], [address] Sodium [Moles/Vol] 143 mmol/L Normal 133-145 [facility] Comment on above: Order Comment: 162 Performed By: #### L 500.2500 #### [facility] [address] [place], [place], [address] Urea nitrogen [Mass/Vol] 14 mg/dL Normal 4-19 [facility] Comment on above: Order Comment: 162 Performed By: #### L 500.2500 #### [facility] [address] [place], [address] .Auto Diffon 05-26-2025 Basophil, Absolute 0.0 10 3/mcL Normal 0.0-0.3 [facility] Comment on above: Performed By: #### A 1C, FT4, ANEU, GFR, LIPID, CBC, CMP, TSH, ADIFF #### [address] [address] Basophils/100 WBC (Bld) 0.9 % Normal 0.0-2.5 [facility] Comment on above: Performed By: #### A 1C, FT4, ANEU, GFR, LIPID, CBC, CMP, TSH, ADIFF #### [address] [place], [place] [address] Eosinophil, Absolute 0.1 10 3/mcL Normal 0.0-0.[address] [facility] Comment on above: Performed By: #### A 1C, FT4, ANEU, GFR, LIPID, CBC, CMP, TSH, ADIFF #### [address] [address] Eosinophils/100 WBC (Bld) 2.8 % Normal 0.0-6.0 [facility] Comment on above: Performed By: #### A 1C, FT4, ANEU, GFR, LIPID, CBC, CMP, TSH, ADIFF #### [address] [address] Lymphocyte, Absolute 0.9 10 3/mcL Normal 0.9-4.[address] [facility] Comment on above: Performed By: #### A 1C, FT4, ANEU, GFR, LIPID, CBC, CMP, TSH, ADIFF #### [address] [address] Lymphocytes/100 WBC (Bld) 18.4 % Low 20.0-40.0 [facility] Comment on above: Performed By: #### A 1C, FT4, ANEU, GFR, LIPID, CBC, CMP, TSH, ADIFF #### [address] [address] Monocyte, Absolute 0.4 10 3/mcL Normal 0.1-1.4 [facility] Comment on above: Performed By: #### A 1C, FT4, ANEU, GFR, LIPID, CBC, CMP, TSH, ADIFF #### [address] [address] Monocytes/100 WBC (Bld) 7.8 % Normal 2.0-13.0 [facility] Comment on above: Performed By: #### A 1C, FT4, ANEU, GFR, LIPID, CBC, CMP, TSH, ADIFF #### [address] [address] Neutrophils/100 WBC (Bld) 70.1 % Normal 50.0-75.0 [facility] Comment on above: Performed By: #### A 1C, FT4, ANEU, GFR, LIPID, CBC, CMP, TSH, ADIFF #### [address] [address] .GFRon 05-26-2025 Estimated Glomerular Filtration Rate 62 ml/min/1.73sqm Normal [facility] Comment on above: Result Comment: Stages [...] GFR, LIPID, CBC, CMP, TSH, ADIFF #### [address] [address] .NEUABSon 05-26-2025 Neutrophil, Absolute 3.5 10 3/mcL Normal 2.3-8.[address] [facility] Comment on above: Performed By: #### A 1C, FT4, ANEU, GFR, LIPID, CBC, CMP, TSH, ADIFF #### [address] [address] A1Con 05-26-2025 Glucose [Mass/Vol] 117 mg/dL Normal [facility] Comment on above: Result Comment: Eugenia mated Average Glucose calculated by equation ((28.7xA1C)-46.7) Estimated average glucose (eAG) is a calculated value from Hemoglobin A1C and is screening representative of the average blood glucose level in the last 2-3 month period. Normal range: less than 114 mg/dL Performed By: #### A 1C, FT4, ANEU, GFR, LIPID, CBC, CMP, TSH, ADIFF #### [address] [address] HbA1c (Bld) [Mass fraction] 5.7 % Normal 4.3-6.4 [facility] Comment on above: Performed By: #### A 1C, FT4, ANEU, GFR, LIPID, CBC, CMP, TSH, ADIFF #### [address] [place], [place] [address] CBCon 05-26-2025 Erythrocyte distribution width (RBC) [Ratio] 19.4 % High 11.5-15.5 [facility] Comment on above: Performed By: #### A 1C, FT4, ANEU, GFR, LIPID, CBC, CMP, TSH, ADIFF #### [place] [address] Hematocrit (Bld) [Volume fraction] 31.5 % Low 34.0-46.0 [facility] Comment on above: Performed By: #### A 1C, FT4, ANEU, GFR, LIPID, CBC, CMP, TSH, ADIFF #### [place] [address] Hgb 10.3 G/dL Low 12.0-16.0 [facility] Comment on above: Performed By: #### A 1C, FT4, ANEU, GFR, LIPID, CBC, CMP, TSH, ADIFF #### [place] [address] MCH (RBC) [Entitic mass] 30.1 pg Normal 27.0-33.0 [facility] Comment on above: Performed By: #### A 1C, FT4, ANEU, GFR, LIPID, CBC, CMP, TSH, ADIFF #### [place] [address] MCHC 32.6 G/dL Normal 32.0-36.0 [facility] Comment on above: Performed By: #### A 1C, FT4, ANEU, GFR, LIPID, CBC, CMP, TSH, ADIFF #### [place] [address] MCV (RBC) [Entitic vol] 92.4 fL Normal 80.0-99.0 [facility] Comment on above: Performed By: #### A 1C, FT4, ANEU, GFR, LIPID, CBC, CMP, TSH, ADIFF #### [place] [address] Platelet 146 10 3/mcL Low 150-450 [facility] Comment on above: Performed By: #### A 1C, FT4, ANEU, GFR, LIPID, CBC, CMP, TSH, ADIFF #### [address] [address] Platelet mean volume (Bld) [Entitic vol] 8.0 fL Normal 6.6-10.5 [facility] Comment on above: Performed By: #### A 1C, FT4, ANEU, GFR, LIPID, CBC, CMP, TSH, ADIFF #### [address] [address] RBC 3.41 10 6/mcL Low 4.10-5.30 [facility] Comment on above: Performed By: #### A 1C, FT4, ANEU, GFR, LIPID, CBC, CMP, TSH, ADIFF #### [address] [address] WBC 4.9 10 3/mcL Normal 4.5-10.8 [facility] Comment on above: Performed By: #### A 1C, FT4, ANEU, GFR, LIPID, CBC, CMP, TSH, ADIFF #### [address] [address] CMPon 05-26-2025 Albumin Level 3.5 G/dL Normal 3.4-4.8 [facility] Comment on above: Performed By: #### A 1C, FT4, ANEU, GFR, LIPID, CBC, CMP, TSH, ADIFF #### [address] [address] Albumin/Globulin [Mass ratio] 1.1 {ratio} Normal 1.1-2.5 [facility] Comment on above: Performed By: #### A 1C, FT4, ANEU, GFR, LIPID, CBC, CMP, TSH, ADIFF #### [address] [address] ALP [Catalytic activity/Vol] 53 U/L Normal 40-135 [facility] Comment on above: Performed By: #### A 1C, FT4, ANEU, GFR, LIPID, CBC, CMP, TSH, ADIFF #### [address] [address] ALT [Catalytic activity/Vol] 10 U/L Low 14-59 [facility] Comment on above: Performed By: #### A 1C, FT4, ANEU, GFR, LIPID, CBC, CMP, TSH, ADIFF #### [address] [address] AST [Catalytic activity/Vol] 17 U/L Normal 10-40 [facility] Comment on above: Performed By: #### A 1C, FT4, ANEU, GFR, LIPID, CBC, CMP, TSH, ADIFF #### [address] [address] Bili Total 0.5 mg/dL Normal 0.2-1.0 [facility] Comment on above: Result Comment: Use of this assay is not recommended for patients undergoing treatment with eltrombopag due to the potential for falsely elevated results. Performed By: #### A 1C, FT4, ANEU, GFR, LIPID, CBC, CMP, TSH, ADIFF #### [place] [address] BUN/Creatinine Ratio 18 ratio Normal 7-27 [facility] Comment on above: Performed By: #### A 1C, FT4, ANEU, GFR, LIPID, CBC, CMP, TSH, ADIFF #### [address] [address] Calcium [Mass/Vol] 9.1 mg/dL Normal 8.4-10.2 [facility] Comment on above: Performed By: #### A 1C, FT4, ANEU, GFR, LIPID, CBC, CMP, TSH, ADIFF #### [address] [address] Chloride [Moles/Vol] 103 mmol/L Normal 98-107 [facility] Comment on above: Performed By: #### A 1C, FT4, ANEU, GFR, LIPID, CBC, CMP, TSH, ADIFF #### [address] [address] CO2 [Moles/Vol] 30 mmol/L Normal 23-31 [facility] Comment on above: Performed By: #### A 1C, FT4, ANEU, GFR, LIPID, CBC, CMP, TSH, ADIFF #### [address] [address] Creatinine [Mass/Vol] 0.92 mg/dL Normal 0.51-0.95 [facility] Comment on above: Performed By: #### A 1C, FT4, ANEU, GFR, LIPID, CBC, CMP, TSH, ADIFF #### [address] [address] Electrolyte Balance 7.0 mEq/L Normal 4.0-15.0 [facility] Comment on above: Performed By: #### A 1C, FT4, ANEU, GFR, LIPID, CBC, CMP, TSH, ADIFF #### [address] [address] Globulin 3.3 G/dL Normal 2.7-4.4 [facility] Comment on above: Performed By: #### A 1C, FT4, ANEU, GFR, LIPID, CBC, CMP, TSH, ADIFF #### [address] [address] Glucose [Mass/Vol] 110 mg/dL Normal 83-110 [facility] Comment on above: Performed By: #### A 1C, FT4, ANEU, GFR, LIPID, CBC, CMP, TSH, ADIFF #### [address] [address] Potassium [Moles/Vol] 3.4 mmol/L Low 3.5-5.1 [facility] Comment on above: Performed By: #### A 1C, FT4, ANEU, GFR, LIPID, CBC, CMP, TSH, ADIFF #### [address] [address] Sodium [Moles/Vol] 140 mmol/L Normal 136-145 [facility] Comment on above: Performed By: #### A 1C, FT4, ANEU, GFR, LIPID, CBC, CMP, TSH, ADIFF #### [address] [address] Total Protein 6.8 G/dL Normal 6.4-8.2 [facility] Comment on above: Performed By: #### A 1C, FT4, ANEU, GFR, LIPID, CBC, CMP, TSH, ADIFF #### [address] [place], [place] [address] Urea nitrogen [Mass/Vol] 17 mg/dL Normal 04-25 [facility] Comment on above: Performed By: #### A 1C, FT4, ANEU, GFR, LIPID, CBC, CMP, TSH, ADIFF #### [address] [place], [place] [address] FT4on 05-26-2025 Free T4 [Mass/Vol] 0.82 ng/dL Normal 0.76-1.46 [facility] Comment on above: Performed By: #### A 1C, FT4, ANEU, GFR, LIPID, CBC, CMP, TSH, ADIFF #### [address] [address] LABORATORYOrdered By: SYSTEM SYSTEM on 05-26-2025 Albumin [...] calculated value from Hemoglobin A1C and is screening representative of the average blood glucose level [...] 104 mg/dL Normal 0-200 [facility] Comment on above: Result Comment: Chol esterol Reference Interval: Less than 200 Desirable 200-239 Borderline high risk 240 and above High risk Performed By: #### A 1C, FT4, ANEU, GFR, LIPID, CBC, CMP, TSH, ADIFF #### [address] [address] Cholesterol in HDL [Mass/Vol] 41 mg/dL Normal 40-60 [facility] Comment on above: Performed By: #### A 1C, FT4, ANEU, GFR, LIPID, CBC, CMP, TSH, ADIFF #### [address] [place], [place] [address] Cholesterol in LDL [Mass/Vol] 45 mg/dL Normal 0-130 [facility] Comment on above: Performed By: #### A 1C, FT4, ANEU, GFR, LIPID, CBC, CMP, TSH, ADIFF #### [address] [place], [place] [address] Triglyceride [Mass/Vol] 92 mg/dL Normal 0-150 [facility] Comment on above: Result Comment: Trig lyceride Reference Interval: Less than 150 Normal 150-199 Borderline high risk 200-499 High risk 500 or higher Very high risk Performed By: #### A 1C, FT4, ANEU, GFR, LIPID, CBC, CMP, TSH, ADIFF #### [address] [address] TSHon 05-26-2025 TSH Qn 2.31 m[IU]/L Normal 0.36-3.74 [facility] Comment on above: Performed By: #### A 1C, FT4, ANEU, GFR, LIPID, CBC, CMP, TSH, ADIFF #### [address] [address] .Auto Diffon 05-06-2025 Basophil, Absolute 0.1 10 3/mcL Normal 0.0-0.3 [facility] Comment on above: Performed By: #### C BC, ADIFF, ANEU, MORPH, CMP, GFR ####[address] [address] Basophils/100 WBC (Bld) 0.9 % Normal 0.0-2.5 [facility] Comment on above: Performed By: #### C BC, ADIFF, ANEU, MORPH, CMP, GFR ####[place] [address] Eosinophil, Absolute 0.1 10 3/mcL Normal 0.0-0.[address] [facility] Comment on above: Performed By: #### C BC, ADIFF, ANEU, MORPH, CMP, GFR ####[address] [address] Eosinophils/100 WBC (Bld) 2.3 % Normal 0.0-6.0 [facility] Comment on above: Performed By: #### C BC, ADIFF, ANEU, MORPH, CMP, GFR ####[address] [address] Lymphocyte, Absolute 1.4 10 3/mcL Normal 0.9-4.[address] [facility] Comment on above: Performed By: #### C BC, ADIFF, ANEU, MORPH, CMP, GFR ####[id number] [place] [address] Lymphocytes/100 WBC (Bld) 23.1 % Normal 20.0-40.0 [facility] Comment on above: Performed By: #### C BC, ADIFF, ANEU, MORPH, CMP, GFR ####[address] [place], [place] [address] Monocyte, Absolute 0.5 10 3/mcL Normal 0.1-1.4 [facility] Comment on above: Performed By: #### C BC, ADIFF, ANEU, MORPH, CMP, GFR ####[address] [place], [place] [address] Monocytes/100 WBC (Bld) 7.4 % Normal 2.0-13.0 [facility] Comment on above: Performed By: #### C BC, ADIFF, ANEU, MORPH, CMP, GFR ####[address] [place], [place] [address] Neutrophils/100 WBC (Bld) 66.3 % Normal 50.0-75.0 [facility] Comment on above: Performed By: #### C BC, ADIFF, ANEU, MORPH, CMP, GFR ####[address] [place], [place] [address] .GFRon 05-06-2025 Estimated Glomerular Filtration Rate 61 ml/min/1.73sqm Normal [facility] Comment on above: Result Comment: Stages [...] ADIFF, ANEU, MORPH, CMP, GFR ####[address] [place], [place] [address] .Morphon 05-06-2025 Platelet Estimate Normal Normal [facility] Comment on above: Performed By: #### C BC, ADIFF, ANEU, MORPH, CMP, GFR ####[address] [place] [id number] .NEUABSon 05-06-2025 Neutrophil, Absolute 4.1 10 3/mcL Normal 2.3-8.[address] [facility] Comment on above: Performed By: #### C BC, ADIFF, ANEU, MORPH, CMP, GFR ####[address] [place] [address] CBCon 05-06-2025 Erythrocyte distribution width (RBC) [Ratio] 20.3 % High 11.5-15.5 [facility] Comment on above: Performed By: #### C BC, ADIFF, ANEU, MORPH, CMP, GFR ####[address] [place] [address] Hematocrit (Bld) [Volume fraction] 31.3 % Low 34.0-46.0 [facility] Comment on above: Performed By: #### C BC, ADIFF, ANEU, MORPH, CMP, GFR ####[address] [address] Hgb 10.2 G/dL Low 12.0-16.0 [facility] Comment on above: Performed By: #### C BC, ADIFF, ANEU, MORPH, CMP, GFR ####[place] [place] [address] MCH (RBC) [Entitic mass] 29.3 pg Normal 27.0-33.0 [facility] Comment on above: Performed By: #### C BC, ADIFF, ANEU, MORPH, CMP, GFR ####[address] [place] [address] MCHC 32.6 G/dL Normal 32.0-36.0 [facility] Comment on above: Performed By: #### C BC, ADIFF, ANEU, MORPH, CMP, GFR ####[address] [place] [address] MCV (RBC) [Entitic vol] 90.1 fL Normal 80.0-99.0 [facility] Comment on above: Performed By: #### C BC, ADIFF, ANEU, MORPH, CMP, GFR ####[address] [place], [place] [address] Platelet 194 10 3/mcL Normal 150-450 [facility] Comment on above: Performed By: #### C BC, ADIFF, ANEU, MORPH, CMP, GFR ####[address] [place], [place] [address] Platelet mean volume (Bld) [Entitic vol] 7.3 fL Normal 6.6-10.5 [facility] Comment on above: Performed By: #### C BC, ADIFF, ANEU, MORPH, CMP, GFR ####[address] [place], [place] [address] RBC 3.47 10 6/mcL Low 4.10-5.30 [facility] Comment on above: Performed By: #### C BC, ADIFF, ANEU, MORPH, CMP, GFR ####[address] [place], [place] [address] WBC 6.2 10 3/mcL Normal 4.5-10.8 [facility] Comment on above: Performed By: #### C BC, ADIFF, ANEU, MORPH, CMP, GFR ####[address] [place], [place] [address] CMPon 05-06-2025 Albumin Level 3.6 G/dL Normal 3.4-4.8 [facility] Comment on above: Performed By: #### C BC, ADIFF, ANEU, MORPH, CMP, GFR ####[address] [place], [place] [address] Albumin/Globulin [Mass ratio] 1.1 {ratio} Normal 1.1-2.5 [facility] Comment on above: Performed By: #### C BC, ADIFF, ANEU, MORPH, CMP, GFR ####[address] [place], [place] [address] ALP [Catalytic activity/Vol] 61 U/L Normal 40-135 [facility] Comment on above: Performed By: #### C BC, ADIFF, ANEU, MORPH, CMP, GFR ####[place] [address] [place], [place] [address] ALT [Catalytic activity/Vol] 16 U/L Normal 14-59 [facility] Comment on above: Performed By: #### C BC, ADIFF, ANEU, MORPH, CMP, GFR ####[place] [address] [place], [place] [address] AST [Catalytic activity/Vol] 19 U/L Normal 10-40 [facility] Comment on above: Performed By: #### C BC, ADIFF, ANEU, MORPH, CMP, GFR ####[place] [id number] [place] [id number] Bili Total 0.4 mg/dL Normal 0.2-1.0 [facility] Comment on above: Result Comment: Use of this assay is not recommended for patients undergoing treatment with eltrombopag due to the potential for falsely elevated results. Performed By: #### C BC, ADIFF, ANEU, MORPH, CMP, GFR ####[place] [id number] [place] [phone] BUN/Creatinine Ratio 15 ratio Normal 7-27 [facility] Comment on above: Performed By: #### C BC, ADIFF, ANEU, MORPH, CMP, GFR ####[place] [address] [place], [place] [address] Calcium [Mass/Vol] 9.4 mg/dL Normal 8.4-10.2 [facility] Comment on above: Performed By: #### C BC, ADIFF, ANEU, MORPH, CMP, GFR ####[place] [address] [address] [place], [place] [address] Chloride [Moles/Vol] 103 mmol/L Normal 98-107 [facility] Comment on above: Performed By: #### C BC, ADIFF, ANEU, MORPH, CMP, GFR ####[place] [address] [address] [place], [place] [address] CO2 [Moles/Vol] 28 mmol/L Normal 23-31 [facility] Comment on above: Performed By: #### C BC, ADIFF, ANEU, MORPH, CMP, GFR ####[place] [address] [place], [place] [address] Creatinine [Mass/Vol] 0.93 mg/dL Normal 0.51-0.95 [facility] Comment on above: Performed By: #### C BC, ADIFF, ANEU, MORPH, CMP, GFR ####[address] [place] [id number] Electrolyte Balance 11.0 mEq/L Normal 4.0-15.0 [facility] Comment on above: Performed By: #### C BC, ADIFF, ANEU, MORPH, CMP, GFR ####[address] [place], [place] [address] Globulin 3.4 G/dL Normal 2.7-4.4 [facility] Comment on above: Performed By: #### C BC, ADIFF, ANEU, MORPH, CMP, GFR ####[address] [address] Glucose [Mass/Vol] 159 mg/dL High 83-110 [facility] Comment on above: Performed By: #### C BC, ADIFF, ANEU, MORPH, CMP, GFR ####[address] [address] Potassium [Moles/Vol] 3.5 mmol/L Normal 3.5-5.1 [facility] Comment on above: Performed By: #### C BC, ADIFF, ANEU, MORPH, CMP, GFR ####[address] [address] Sodium [Moles/Vol] 142 mmol/L Normal 136-145 [facility] Comment on above: Performed By: #### C BC, ADIFF, ANEU, MORPH, CMP, GFR ####[address] [address] Total Protein 7.0 G/dL Normal 6.4-8.2 [facility] Comment on above: Performed By: #### C BC, ADIFF, ANEU, MORPH, CMP, GFR ####[facility] [place], [place] [address] Urea nitrogen [Mass/Vol] 14 mg/dL Normal 7-18 [facility] Comment on above: Performed By: #### C BC, ADIFF, ANEU, MORPH, CMP, GFR ####[facility] [place], [place] [address] LABORATORYOrdered By: SYSTEM SYSTEM on 05-06-2025 Albumin [...] 116 mg/dL High 82 - 115 mg/dL [facility] HbA1c (Bld) [Mass fraction] 5.7 % [facility] Lab Performed By Dhruv Cook PharmD [facility] Lab Performing Location [facility] GGTon 04-15-2025 Gamma GT 94 U/L High 5-55 [facility] Comment on above: Performed By: #### A 1C, FT4, ANEU, GFR, LIPID, CBC, CMP, TSH, ADIFF #### [address] [address] ALT/SGPTon 04-14-2025 ALT [Catalytic activity/Vol] 39 U/L Normal 14-59 [facility] Comment on above: Performed By: #### A 1C, FT4, ANEU, GFR, LIPID, CBC, CMP, TSH, ADIFF #### [address] [address] APon 04-14-2025 ALP [Catalytic activity/Vol] 88 U/L Normal 40-135 [facility] Comment on above: Performed By: #### A 1C, FT4, ANEU, GFR, LIPID, CBC, CMP, TSH, ADIFF #### [address] [address] FEon 04-14-2025 Iron [Mass/Vol] 28 ug/dL Low 50-170 [facility] Comment on above: Performed By: #### A 1C, FT4, ANEU, GFR, LIPID, CBC, CMP, TSH, ADIFF #### [address] [address] Dipti 04-14-2025 Ferritin [Mass/Vol] 40.0 ng/mL Normal 8.0-252.0 [facility] Comment on above: Performed By: #### A 1C, FT4, ANEU, GFR, LIPID, CBC, CMP, TSH, ADIFF #### [address] [address] HHon 04-14-2025 Hematocrit (Bld) [Volume fraction] 27.4 % Low 34.0-46.0 [facility] Comment on above: Performed By: #### A 1C, FT4, ANEU, GFR, LIPID, CBC, CMP, TSH, ADIFF #### [address] [address] Hgb 8.8 G/dL Low 12.0-16.0 [facility] Comment on above: Performed By: #### A 1C, FT4, ANEU, GFR, LIPID, CBC, CMP, TSH, ADIFF #### [address] [address] LABORATORYOrdered By: SYSTEM SYSTEM on 04-14-2025 ALP [...] Basophil, Absolute 0.0 10 3/mcL Normal 0.0-0.3 [facility] Comment on above: Performed By: #### A 1C, FT4, ANEU, GFR, LIPID, CBC, CMP, TSH, ADIFF #### [address] [address] Basophils/100 WBC (Bld) 0.6 % Normal 0.0-2.5 [facility] Comment on above: Performed By: #### A 1C, FT4, ANEU, GFR, LIPID, CBC, CMP, TSH, ADIFF #### [address] [address] Eosinophil, Absolute 0.1 10 3/mcL Normal 0.0-0.[address] [facility] Comment on above: Performed By: #### A 1C, FT4, ANEU, GFR, LIPID, CBC, CMP, TSH, ADIFF #### [address] [address] Eosinophils/100 WBC (Bld) 1.6 % Normal 0.0-6.0 [facility] Comment on above: Performed By: #### A 1C, FT4, ANEU, GFR, LIPID, CBC, CMP, TSH, ADIFF #### [address] [address] Lymphocyte, Absolute 1.5 10 3/mcL Normal 0.9-4.[address] [facility] Comment on above: Performed By: #### A 1C, FT4, ANEU, GFR, LIPID, CBC, CMP, TSH, ADIFF #### [address] [address] Lymphocytes/100 WBC (Bld) 20.6 % Normal 20.0-40.0 [facility] Comment on above: Performed By: #### A 1C, FT4, ANEU, GFR, LIPID, CBC, CMP, TSH, ADIFF #### [address] [address] Monocyte, Absolute 0.5 10 3/mcL Normal 0.1-1.4 [facility] Comment on above: Performed By: #### A 1C, FT4, ANEU, GFR, LIPID, CBC, CMP, TSH, ADIFF #### [address] [address] Monocytes/100 WBC (Bld) 6.8 % Normal 2.0-13.0 [facility] Comment on above: Performed By: #### A 1C, FT4, ANEU, GFR, LIPID, CBC, CMP, TSH, ADIFF #### [address] [address] Neutrophils/100 WBC (Bld) 70.4 % Normal 50.0-75.0 [facility] Comment on above: Performed By: #### A 1C, FT4, ANEU, GFR, LIPID, CBC, CMP, TSH, ADIFF #### [address] [address] .NEUABSon 03-28-2025 Neutrophil, Absolute 5.0 10 3/mcL Normal 2.3-8.[address] [facility] Comment on above: Performed By: #### A 1C, FT4, ANEU, GFR, LIPID, CBC, CMP, TSH, ADIFF #### [address] [address] CBCon 03-28-2025 Erythrocyte distribution width (RBC) [Ratio] 16.0 % High 11.5-15.5 [facility] Comment on above: Performed By: #### A 1C, FT4, ANEU, GFR, LIPID, CBC, CMP, TSH, ADIFF #### [address] [address] Hematocrit (Bld) [Volume fraction] 28.4 % Low 34.0-46.0 [facility] Comment on above: Performed By: #### A 1C, FT4, ANEU, GFR, LIPID, CBC, CMP, TSH, ADIFF #### [address] [address] Hgb 9.0 G/dL Low 12.0-16.0 [facility] Comment on above: Performed By: #### A 1C, FT4, ANEU, GFR, LIPID, CBC, CMP, TSH, ADIFF #### [address] [address] MCH (RBC) [Entitic mass] 27.6 pg Normal 27.0-33.0 [facility] Comment on above: Performed By: #### A 1C, FT4, ANEU, GFR, LIPID, CBC, CMP, TSH, ADIFF #### [address] [address] MCHC 31.8 G/dL Low 32.0-36.0 [facility] Comment on above: Performed By: #### A 1C, FT4, ANEU, GFR, LIPID, CBC, CMP, TSH, ADIFF #### [address] [address] MCV (RBC) [Entitic vol] 86.9 fL Normal 80.0-99.0 [facility] Comment on above: Performed By: #### A 1C, FT4, ANEU, GFR, LIPID, CBC, CMP, TSH, ADIFF #### [address] [address] Platelet 286 10 3/mcL Normal 150-450 [facility] Comment on above: Performed By: #### A 1C, FT4, ANEU, GFR, LIPID, CBC, CMP, TSH, ADIFF #### [place] [address] Platelet mean volume (Bld) [Entitic vol] 7.5 fL Normal 6.6-10.5 [facility] Comment on above: Performed By: #### A 1C, FT4, ANEU, GFR, LIPID, CBC, CMP, TSH, ADIFF #### [place] [address] RBC 3.27 10 6/mcL Low 4.10-5.30 [facility] Comment on above: Performed By: #### A 1C, FT4, ANEU, GFR, LIPID, CBC, CMP, TSH, ADIFF #### [place] [address] WBC 7.2 10 3/mcL Normal 4.5-10.8 [facility] Comment on above: Performed By: #### A 1C, FT4, ANEU, GFR, LIPID, CBC, CMP, TSH, ADIFF #### [place] [address] FEon 03-28-2025 Iron [Mass/Vol] 30 ug/dL Low 50-170 [facility] Comment on above: Performed By: #### A 1C, FT4, ANEU, GFR, LIPID, CBC, CMP, TSH, ADIFF #### [place] [address] Dipti 03-28-2025 Ferritin [Mass/Vol] 50.0 ng/mL Normal 8.0-252.0 [facility] Comment on above: Performed By: #### A 1C, FT4, ANEU, GFR, LIPID, CBC, CMP, TSH, ADIFF #### [place] [address] LABORATORYOrdered By: SYSTEM SYSTEM on 03-28-2025 Basophils [...] 0.40 IRF Normal 0.20-0.46 [facility] Comment on above: Performed By: #### A 1C, FT4, ANEU, GFR, LIPID, CBC, CMP, TSH, ADIFF #### [address] [address] Reticulocytes, Auto 2.0 % Normal 0.2-2.3 [facility] Comment on above: Performed By: #### A 1C, FT4, ANEU, GFR, LIPID, CBC, CMP, TSH, ADIFF #### [address] [address] .GFRon 03-20-2025 Estimated Glomerular Filtration Rate 57 ml/min/1.73sqm Normal [facility] Comment on above: Result Comment: Stages [...] By: #### G FR, BMP #### [facility] [address] [place], [place] [address] BMPon 03-20-2025 BUN/Creatinine Ratio 17 ratio Normal 7-27 [facility] Comment on above: Performed By: #### G FR, BMP #### [facility] [place] [address] [facility] [place], [place] [address] Calcium [Mass/Vol] 9.1 mg/dL Normal 8.4-10.2 [facility] Comment on above: Performed By: #### G FR, BMP #### [facility] [place] [address] [facility] [place], [place] [address] Chloride [Moles/Vol] 103 mmol/L Normal 98-107 [facility] Comment on above: Performed By: #### G FR, BMP #### [facility] [address] [facility] [place] [place] [address] CO2 [Moles/Vol] 28 mmol/L Normal 23-31 [facility] Comment on above: Performed By: #### G FR, BMP #### [facility] [address] [facility] [place] [place] [address] Creatinine [Mass/Vol] 0.98 mg/dL High 0.51-0.95 [facility] Comment on above: Performed By: #### G FR, BMP #### [facility] [address] [facility] [place] [address] Electrolyte Balance 10.0 mEq/L Normal 4.0-15.0 [facility] Comment on above: Performed By: #### G FR, BMP #### [facility] [address] [facility] [place] [place] [address] Glucose [Mass/Vol] 175 mg/dL High 83-110 [facility] Comment on above: Performed By: #### G FR, BMP #### [facility] [address] [facility] [place] [place] [address] Potassium [Moles/Vol] 4.1 mmol/L Normal 3.5-5.1 [facility] Comment on above: Performed By: #### G FR, BMP #### [facility] [place] [address] [facility] [place], [place] [address] Sodium [Moles/Vol] 141 mmol/L Normal 136-145 [facility] Comment on above: Performed By: #### G FR, BMP #### [facility] [address] [place], [place] [address] Urea nitrogen [Mass/Vol] 17 mg/dL Normal 7-18 [facility] Comment on above: Performed By: #### G FR, BMP #### [facility] [address] [place], [place] [address] .Auto Diffon 03-06-2025 Basophil, Absolute 0.0 10 3/mcL Normal 0.0-0.3 [facility] Comment on above: Performed By: #### A 1C, FT4, ANEU, GFR, LIPID, CBC, CMP, TSH, ADIFF #### [address] [address] Basophils/100 WBC (Bld) 0.9 % Normal 0.0-2.5 [facility] Comment on above: Performed By: #### A 1C, FT4, ANEU, GFR, LIPID, CBC, CMP, TSH, ADIFF #### [address] [address] Eosinophil, Absolute 0.2 10 3/mcL Normal 0.0-0.[address] [facility] Comment on above: Performed By: #### A 1C, FT4, ANEU, GFR, LIPID, CBC, CMP, TSH, ADIFF #### [address] [address] Eosinophils/100 WBC (Bld) 3.3 % Normal 0.0-6.0 [facility] Comment on above: Performed By: #### A 1C, FT4, ANEU, GFR, LIPID, CBC, CMP, TSH, ADIFF #### [address] [address] Lymphocyte, Absolute 0.8 10 3/mcL Low 0.9-4.[address] [facility] Comment on above: Performed By: #### A 1C, FT4, ANEU, GFR, LIPID, CBC, CMP, TSH, ADIFF #### [address] [address] Lymphocytes/100 WBC (Bld) 15.5 % Low 20.0-40.0 [facility] Comment on above: Performed By: #### A 1C, FT4, ANEU, GFR, LIPID, CBC, CMP, TSH, ADIFF #### [place] [address] [place], [place] [address] Monocyte, Absolute 0.5 10 3/mcL Normal 0.1-1.4 [facility] Comment on above: Performed By: #### A 1C, FT4, ANEU, GFR, LIPID, CBC, CMP, TSH, ADIFF #### [address] [address] Monocytes/100 WBC (Bld) 9.3 % Normal 2.0-13.0 [facility] Comment on above: Performed By: #### A 1C, FT4, ANEU, GFR, LIPID, CBC, CMP, TSH, ADIFF #### [place] [address] [place], [place] [address] Neutrophils/100 WBC (Bld) 71.0 % Normal 50.0-75.0 [facility] Comment on above: Performed By: #### A 1C, FT4, ANEU, GFR, LIPID, CBC, CMP, TSH, ADIFF #### [address] [address] .GFRon 03-06-2025 Estimated Glomerular Filtration Rate 35 ml/min/1.73sqm Normal [facility] Comment on above: Result Comment: Stages [...] LIPID, CBC, CMP, TSH, ADIFF #### [place] [address] .NEUABSon 03-06-2025 Neutrophil, Absolute 3.8 10 3/mcL Normal 2.3-8.[address] [facility] Comment on above: Performed By: #### A 1C, FT4, ANEU, GFR, LIPID, CBC, CMP, TSH, ADIFF #### [place] [address] CBCon 03-06-2025 Erythrocyte distribution width (RBC) [Ratio] 16.1 % High 11.5-15.5 [facility] Comment on above: Performed By: #### A 1C, FT4, ANEU, GFR, LIPID, CBC, CMP, TSH, ADIFF #### [place] [address] Hematocrit (Bld) [Volume fraction] 29.5 % Low 34.0-46.0 [facility] Comment on above: Performed By: #### A 1C, FT4, ANEU, GFR, LIPID, CBC, CMP, TSH, ADIFF #### [place] [address] Hgb 9.5 G/dL Low 12.0-16.0 [facility] Comment on above: Performed By: #### A 1C, FT4, ANEU, GFR, LIPID, CBC, CMP, TSH, ADIFF #### [place] [id number] MCH (RBC) [Entitic mass] 28.4 pg Normal 27.0-33.0 [facility] Comment on above: Performed By: #### A 1C, FT4, ANEU, GFR, LIPID, CBC, CMP, TSH, ADIFF #### [place] [address] MCHC 32.3 G/dL Normal 32.0-36.0 [facility] Comment on above: Performed By: #### A 1C, FT4, ANEU, GFR, LIPID, CBC, CMP, TSH, ADIFF #### [place] [address] MCV (RBC) [Entitic vol] 87.9 fL Normal 80.0-99.0 [facility] Comment on above: Performed By: #### A 1C, FT4, ANEU, GFR, LIPID, CBC, CMP, TSH, ADIFF #### [address] [address] Platelet 198 10 3/mcL Normal 150-450 [facility] Comment on above: Performed By: #### A 1C, FT4, ANEU, GFR, LIPID, CBC, CMP, TSH, ADIFF #### [address] [address] Platelet mean volume (Bld) [Entitic vol] 7.1 fL Normal 6.6-10.5 [facility] Comment on above: Performed By: #### A 1C, FT4, ANEU, GFR, LIPID, CBC, CMP, TSH, ADIFF #### [address] [address] RBC 3.36 10 6/mcL Low 4.10-5.30 [facility] Comment on above: Performed By: #### A 1C, FT4, ANEU, GFR, LIPID, CBC, CMP, TSH, ADIFF #### [address] [address] WBC 5.3 10 3/mcL Normal 4.5-10.8 [facility] Comment on above: Performed By: #### A 1C, FT4, ANEU, GFR, LIPID, CBC, CMP, TSH, ADIFF #### [address] [address] CMPon 03-06-2025 Albumin Level 3.6 G/dL Normal 3.4-4.8 [facility] Comment on above: Performed By: #### A 1C, FT4, ANEU, GFR, LIPID, CBC, CMP, TSH, ADIFF #### [address] [address] Albumin/Globulin [Mass ratio] 1.0 {ratio} Low 1.1-2.5 [facility] Comment on above: Performed By: #### A 1C, FT4, ANEU, GFR, LIPID, CBC, CMP, TSH, ADIFF #### [address] [address] ALP [Catalytic activity/Vol] 77 U/L Normal 40-135 [facility] Comment on above: Performed By: #### A 1C, FT4, ANEU, GFR, LIPID, CBC, CMP, TSH, ADIFF #### [address] [address] ALT [Catalytic activity/Vol] 18 U/L Normal 14-59 [facility] Comment on above: Performed By: #### A 1C, FT4, ANEU, GFR, LIPID, CBC, CMP, TSH, ADIFF #### [address] [address] AST [Catalytic activity/Vol] 19 U/L Normal 10-40 [facility] Comment on above: Performed By: #### A 1C, FT4, ANEU, GFR, LIPID, CBC, CMP, TSH, ADIFF #### [address] [address] Bili Total 0.2 mg/dL Normal 0.2-1.0 [facility] Comment on above: Result Comment: Use of this assay is not recommended for patients undergoing treatment with eltrombopag due to the potential for falsely elevated results. Performed By: #### A 1C, FT4, ANEU, GFR, LIPID, CBC, CMP, TSH, ADIFF #### [address] [address] BUN/Creatinine Ratio 16 ratio Normal 7-27 [facility] Comment on above: Performed By: #### A 1C, FT4, ANEU, GFR, LIPID, CBC, CMP, TSH, ADIFF #### [address] [address] Calcium [Mass/Vol] 9.1 mg/dL Normal 8.4-10.2 [facility] Comment on above: Performed By: #### A 1C, FT4, ANEU, GFR, LIPID, CBC, CMP, TSH, ADIFF #### [address] [address] Chloride [Moles/Vol] 102 mmol/L Normal 98-107 [facility] Comment on above: Performed By: #### A 1C, FT4, ANEU, GFR, LIPID, CBC, CMP, TSH, ADIFF #### [place] [address] CO2 [Moles/Vol] 24 mmol/L Normal 23-31 [facility] Comment on above: Performed By: #### A 1C, FT4, ANEU, GFR, LIPID, CBC, CMP, TSH, ADIFF #### [address] [address] Creatinine [Mass/Vol] 1.47 mg/dL High 0.51-0.95 [facility] Comment on above: Performed By: #### A 1C, FT4, ANEU, GFR, LIPID, CBC, CMP, TSH, ADIFF #### [place] [address] Electrolyte Balance 10.0 mEq/L Normal 4.0-15.0 [facility] Comment on above: Performed By: #### A 1C, FT4, ANEU, GFR, LIPID, CBC, CMP, TSH, ADIFF #### [place] [address] Globulin 3.7 G/dL Normal 2.7-4.4 [facility] Comment on above: Performed By: #### A 1C, FT4, ANEU, GFR, LIPID, CBC, CMP, TSH, ADIFF #### [place] [address] Glucose [Mass/Vol] 189 mg/dL High 83-110 [facility] Comment on above: Performed By: #### A 1C, FT4, ANEU, GFR, LIPID, CBC, CMP, TSH, ADIFF #### [place] [address] Potassium [Moles/Vol] 5.0 mmol/L Normal 3.5-5.1 [facility] Comment on above: Performed By: #### A 1C, FT4, ANEU, GFR, LIPID, CBC, CMP, TSH, ADIFF #### [address] [address] Sodium [Moles/Vol] 136 mmol/L Normal 136-145 [facility] Comment on above: Performed By: #### A 1C, FT4, ANEU, GFR, LIPID, CBC, CMP, TSH, ADIFF #### [place] [address] Total Protein 7.3 G/dL Normal 6.4-8.2 [facility] Comment on above: Performed By: #### A 1C, FT4, ANEU, GFR, LIPID, CBC, CMP, TSH, ADIFF #### [place] [address] Urea nitrogen [Mass/Vol] 23 mg/dL High 7-18 [facility] Comment on above: Performed By: #### A 1C, FT4, ANEU, GFR, LIPID, CBC, CMP, TSH, ADIFF #### [place] [address] FEon 03-06-2025 Iron [Mass/Vol] 35 ug/dL Low 50-170 [facility] Comment on above: Performed By: #### A 1C, FT4, ANEU, GFR, LIPID, CBC, CMP, TSH, ADIFF #### [address] [address] Dipti 03-06-2025 Ferritin [Mass/Vol] 28.0 ng/mL Normal 8.0-252.0 [facility] Comment on above: Performed By: #### A 1C, FT4, ANEU, GFR, LIPID, CBC, CMP, TSH, ADIFF #### [place] [address] LABORATORYOrdered By: SYSTEM SYSTEM on 03-06-2025 Albumin [...] 0.38 IRF Normal 0.20-0.46 [facility] Comment on above: Performed By: #### A 1C, FT4, ANEU, GFR, LIPID, CBC, CMP, TSH, ADIFF #### [place] [address] [place], [place] [address] Reticulocytes, Auto 1.6 % Normal 0.2-2.3 [facility] Comment on above: Performed By: #### A 1C, FT4, ANEU, GFR, LIPID, CBC, CMP, TSH, ADIFF #### [place] [address] [place], [place] [address] No Panel Informationon 02-20 Culture Wound Aerobe Few normal skin mariano ra present. Sensitivity testing not indicated. [facility] GS 4+ Polymorphonuclear cells 2+ Gram Positive Cocci [facility] CT ABDOMEN/PELVIS W/CONTRAST on 02-18-2025 CT ABDOMEN/PELVIS [...] 4:10:18 PM Ordering Provider: FITZ GA Normal [facility] .Auto Diffon 02-10-2025 Basophil, Absolute 0.0 10 3/mcL Normal 0.0-0.3 [facility] Comment on above: Performed By: #### A 1C, FT4, ANEU, GFR, LIPID, CBC, CMP, TSH, ADIFF #### [facility] [address] [place], [place] [address] Basophils/100 WBC (Bld) 0.5 % Normal 0.0-2.5 [facility] Comment on above: Performed By: #### A 1C, FT4, ANEU, GFR, LIPID, CBC, CMP, TSH, ADIFF #### [address] [address] Eosinophil, Absolute 0.2 10 3/mcL Normal 0.0-0.[address] [facility] Comment on above: Performed By: #### A 1C, FT4, ANEU, GFR, LIPID, CBC, CMP, TSH, ADIFF #### [address] [address] Eosinophils/100 WBC (Bld) 4.3 % Normal 0.0-6.0 [facility] Comment on above: Performed By: #### A 1C, FT4, ANEU, GFR, LIPID, CBC, CMP, TSH, ADIFF #### [address] [address] Lymphocyte, Absolute 1.1 10 3/mcL Normal 0.9-4.[address] [facility] Comment on above: Performed By: #### A 1C, FT4, ANEU, GFR, LIPID, CBC, CMP, TSH, ADIFF #### [address] [address] Lymphocytes/100 WBC (Bld) 23.7 % Normal 20.0-40.0 [facility] Comment on above: Performed By: #### A 1C, FT4, ANEU, GFR, LIPID, CBC, CMP, TSH, ADIFF #### [address] [address] Monocyte, Absolute 0.4 10 3/mcL Normal 0.1-1.4 [facility] Comment on above: Performed By: #### A 1C, FT4, ANEU, GFR, LIPID, CBC, CMP, TSH, ADIFF #### [address] [address] Monocytes/100 WBC (Bld) 8.2 % Normal 2.0-13.0 [facility] Comment on above: Performed By: #### A 1C, FT4, ANEU, GFR, LIPID, CBC, CMP, TSH, ADIFF #### [address] [address] Neutrophils/100 WBC (Bld) 63.3 % Normal 50.0-75.0 [facility] Comment on above: Performed By: #### A 1C, FT4, ANEU, GFR, LIPID, CBC, CMP, TSH, ADIFF #### [address] [address] .GFRon 02-10-2025 Estimated Glomerular Filtration Rate 71 ml/min/1.73sqm Normal [facility] Comment on above: Result Comment: Stages [...] GFR, LIPID, CBC, CMP, TSH, ADIFF #### [address] [address] .NEUABSon 02-10-2025 Neutrophil, Absolute 3.0 10 3/mcL Normal 2.3-8.[address] [facility] Comment on above: Performed By: #### A 1C, FT4, ANEU, GFR, LIPID, CBC, CMP, TSH, ADIFF #### [place] [address] [place], [place] [address] A1Con 02-10-2025 Glucose [Mass/Vol] 146 mg/dL Normal [facility] Comment on above: Result Comment: Eugenia mated Average Glucose calculated by equation ((28.7xA1C)-46.7) Estimated average glucose (eAG) is a calculated value from Hemoglobin A1C and is screening representative of the average blood glucose level in the last 2-3 month period. Normal range: less than 114 mg/dL Performed By: #### A 1C, FT4, ANEU, GFR, LIPID, CBC, CMP, TSH, ADIFF ####[place] [address] HbA1c (Bld) [Mass fraction] 6.7 % High 4.3-6.4 [facility] Comment on above: Performed By: #### A 1C, FT4, ANEU, GFR, LIPID, CBC, CMP, TSH, ADIFF ####[place] [address] CBCon 02-10-2025 Erythrocyte distribution width (RBC) [Ratio] 15.5 % Normal 11.5-15.5 [facility] Comment on above: Performed By: #### A 1C, FT4, ANEU, GFR, LIPID, CBC, CMP, TSH, ADIFF #### [place] [address] Hematocrit (Bld) [Volume fraction] 30.2 % Low 34.0-46.0 [facility] Comment on above: Performed By: #### A 1C, FT4, ANEU, GFR, LIPID, CBC, CMP, TSH, ADIFF #### [place] [address] Hgb 9.9 G/dL Low 12.0-16.0 [facility] Comment on above: Performed By: #### A 1C, FT4, ANEU, GFR, LIPID, CBC, CMP, TSH, ADIFF #### [place] [address] MCH (RBC) [Entitic mass] 29.5 pg Normal 27.0-33.0 [facility] Comment on above: Performed By: #### A 1C, FT4, ANEU, GFR, LIPID, CBC, CMP, TSH, ADIFF #### [place] [address] MCHC 32.8 G/dL Normal 32.0-36.0 [facility] Comment on above: Performed By: #### A 1C, FT4, ANEU, GFR, LIPID, CBC, CMP, TSH, ADIFF #### [address] [place] [address] MCV (RBC) [Entitic vol] 90.0 fL Normal 80.0-99.0 [facility] Comment on above: Performed By: #### A 1C, FT4, ANEU, GFR, LIPID, CBC, CMP, TSH, ADIFF #### [address] [address] Platelet 290 10 3/mcL Normal 150-450 [facility] Comment on above: Performed By: #### A 1C, FT4, ANEU, GFR, LIPID, CBC, CMP, TSH, ADIFF #### [address] [address] Platelet mean volume (Bld) [Entitic vol] 6.9 fL Normal 6.6-10.5 [facility] Comment on above: Performed By: #### A 1C, FT4, ANEU, GFR, LIPID, CBC, CMP, TSH, ADIFF #### [address] [address] RBC 3.35 10 6/mcL Low 4.10-5.30 [facility] Comment on above: Performed By: #### A 1C, FT4, ANEU, GFR, LIPID, CBC, CMP, TSH, ADIFF #### [address] [address] WBC 4.7 10 3/mcL Normal 4.5-10.8 [facility] Comment on above: Performed By: #### A 1C, FT4, ANEU, GFR, LIPID, CBC, CMP, TSH, ADIFF #### [address] [address] CMPon 02-10-2025 Albumin Level 3.5 G/dL Normal 3.4-4.8 [facility] Comment on above: Performed By: #### A 1C, FT4, ANEU, GFR, LIPID, CBC, CMP, TSH, ADIFF #### [address] [address] Albumin/Globulin [Mass ratio] 1.0 {ratio} Low 1.1-2.5 [facility] Comment on above: Performed By: #### A 1C, FT4, ANEU, GFR, LIPID, CBC, CMP, TSH, ADIFF #### [place] [id number] ALP [Catalytic activity/Vol] 195 U/L High 40-135 [facility] Comment on above: Performed By: #### A 1C, FT4, ANEU, GFR, LIPID, CBC, CMP, TSH, ADIFF #### [place] [address] ALT [Catalytic activity/Vol] 67 U/L High 14-59 [facility] Comment on above: Performed By: #### A 1C, FT4, ANEU, GFR, LIPID, CBC, CMP, TSH, ADIFF #### [place] [address] AST [Catalytic activity/Vol] 98 U/L High 10-40 [facility] Comment on above: Performed By: #### A 1C, FT4, ANEU, GFR, LIPID, CBC, CMP, TSH, ADIFF #### [place] [address] Bili Total 0.5 mg/dL Normal 0.2-1.0 [facility] Comment on above: Result Comment: Use of this assay is not recommended for patients undergoing treatment with eltrombopag due to the potential for falsely elevated results. Performed By: #### A 1C, FT4, ANEU, GFR, LIPID, CBC, CMP, TSH, ADIFF #### [place] [address] BUN/Creatinine Ratio 13 ratio Normal 7-27 [facility] Comment on above: Performed By: #### A 1C, FT4, ANEU, GFR, LIPID, CBC, CMP, TSH, ADIFF #### [place] [address] Calcium [Mass/Vol] 9.4 mg/dL Normal 8.4-10.2 [facility] Comment on above: Performed By: #### A 1C, FT4, ANEU, GFR, LIPID, CBC, CMP, TSH, ADIFF #### [address] [address] Chloride [Moles/Vol] 106 mmol/L Normal 98-107 [facility] Comment on above: Performed By: #### A 1C, FT4, ANEU, GFR, LIPID, CBC, CMP, TSH, ADIFF #### [address] [address] CO2 [Moles/Vol] 27 mmol/L Normal 23-31 [facility] Comment on above: Performed By: #### A 1C, FT4, ANEU, GFR, LIPID, CBC, CMP, TSH, ADIFF #### [place] [address] Creatinine [Mass/Vol] 0.82 mg/dL Normal 0.51-0.95 [facility] Comment on above: Performed By: #### A 1C, FT4, ANEU, GFR, LIPID, CBC, CMP, TSH, ADIFF #### [place] [address] Electrolyte Balance 10.0 mEq/L Normal 4.0-15.0 [facility] Comment on above: Performed By: #### A 1C, FT4, ANEU, GFR, LIPID, CBC, CMP, TSH, ADIFF #### [address] [address] Globulin 3.5 G/dL Normal 2.7-4.4 [facility] Comment on above: Performed By: #### A 1C, FT4, ANEU, GFR, LIPID, CBC, CMP, TSH, ADIFF #### [address] [address] Glucose [Mass/Vol] 120 mg/dL High 83-110 [facility] Comment on above: Performed By: #### A 1C, FT4, ANEU, GFR, LIPID, CBC, CMP, TSH, ADIFF #### [place] [address] Potassium [Moles/Vol] 3.5 mmol/L Normal 3.5-5.1 [facility] Comment on above: Performed By: #### A 1C, FT4, ANEU, GFR, LIPID, CBC, CMP, TSH, ADIFF #### [address] [address] Sodium [Moles/Vol] 143 mmol/L Normal 136-145 [facility] Comment on above: Performed By: #### A 1C, FT4, ANEU, GFR, LIPID, CBC, CMP, TSH, ADIFF #### [address] [address] Total Protein 7.0 G/dL Normal 6.4-8.2 [facility] Comment on above: Performed By: #### A 1C, FT4, ANEU, GFR, LIPID, CBC, CMP, TSH, ADIFF #### [address] [address] Urea nitrogen [Mass/Vol] 11 mg/dL Normal 7-18 [facility] Comment on above: Performed By: #### A 1C, FT4, ANEU, GFR, LIPID, CBC, CMP, TSH, ADIFF #### [address] [address] FT4on 02-10-2025 Free T4 [Mass/Vol] 0.87 ng/dL Normal 0.76-1.46 [facility] Comment on above: Performed By: #### A 1C, FT4, ANEU, GFR, LIPID, CBC, CMP, TSH, ADIFF #### [address] [address] LABORATORYOrdered By: SYSTEM SYSTEM on 02-10-2025 Albumin [...] calculated value from Hemoglobin A1C and is screening representative of the average blood glucose level [...] 115 mg/dL Normal 0-200 [facility] Comment on above: Result Comment: Chol esterol Reference Interval: Less than 200 Desirable 200-239 Borderline high risk 240 and above High risk Performed By: #### A 1C, FT4, ANEU, GFR, LIPID, CBC, CMP, TSH, ADIFF #### [place] [address] [place], [place] [address] Cholesterol in HDL [Mass/Vol] 35 mg/dL Low 40-60 [facility] Comment on above: Performed By: #### A 1C, FT4, ANEU, GFR, LIPID, CBC, CMP, TSH, ADIFF #### [place] [address] [place], [place] [address] Cholesterol in LDL [Mass/Vol] 46 mg/dL Normal 0-130 [facility] Comment on above: Performed By: #### A 1C, FT4, ANEU, GFR, LIPID, CBC, CMP, TSH, ADIFF #### [facility] [address] [place], [place] [address] Triglyceride [Mass/Vol] 170 mg/dL High 0-150 [facility] Comment on above: Result Comment: Trig lyceride Reference Interval: Less than 150 Normal 150-199 Borderline high risk 200-499 High risk 500 or higher Very high risk Performed By: #### A 1C, FT4, ANEU, GFR, LIPID, CBC, CMP, TSH, ADIFF #### [place] [address] [place], [place] [address] TSHon 02-10-2025 TSH Qn 4.13 m[IU]/L High 0.36-3.74 [facility] Comment on above: Performed By: #### A 1C, FT4, ANEU, GFR, LIPID, CBC, CMP, TSH, ADIFF #### [place] [address] [place], [place] [address] LABORATORYOrdered By: Dhruv Cook on 01-30-2025 Glucose [Mass/Vol] 167 mg/dL High 82 - 115 mg/dL [facility] HbA1c (Bld) [Mass fraction] 6.6 % [facility] Lab Performed By Dhruv Cook PharmD [facility] Lab Performing Location [facility] LABORATORYOrdered By: Dhruv Cook on 01-02-2025 Glucose [Mass/Vol] 151 mg/dL High 82 - 115 mg/dL [facility] .Auto Diff10-21-2024 Basophil, Absolute 0.1 10 3/mcL Normal 0.0-0.2 [facility] Comment on above: Performed By: #### T SH, GFR, CBC, LIPID, A1C, ADIFF, CMP, ANEU, FT4 ####[address] [place], [place] [address] Basophils/100 WBC (Bld) 0.9 % Normal 0.0-2.5 [facility] Comment on above: Performed By: #### T SH, GFR, CBC, LIPID, A1C, ADIFF, CMP, ANEU, FT4 ####[address] [place], [place] [address] Eosinophil, Absolute 0.2 10 3/mcL Normal 0.0-0.[address] [facility] Comment on above: Performed By: #### T SH, GFR, CBC, LIPID, A1C, ADIFF, CMP, ANEU, FT4 ####[address] [place], [place] [address] Eosinophils/100 WBC (Bld) 3.2 % Normal 0.0-7.0 [facility] Comment on above: Performed By: #### T SH, GFR, CBC, LIPID, A1C, ADIFF, CMP, ANEU, FT4 ####[address] [place], [place] [address] Lymphocyte, Absolute 1.3 10 3/mcL Normal 0.9-4.[address] [facility] Comment on above: Performed By: #### T SH, GFR, CBC, LIPID, A1C, ADIFF, CMP, ANEU, FT4 ####[address] [place], [place] [address] Lymphocytes/100 WBC (Bld) 19.3 % Low 20.0-40.0 [facility] Comment on above: Performed By: #### T SH, GFR, CBC, LIPID, A1C, ADIFF, CMP, ANEU, FT4 ####[address] [place], [place] [address] Monocyte, Absolute 0.5 10 3/mcL Normal 0.1-1.4 [facility] Comment on above: Performed By: #### T SH, GFR, CBC, LIPID, A1C, ADIFF, CMP, ANEU, FT4 ####[address] [place], [place] [address] Monocytes/100 WBC (Bld) 7.6 % Normal 2.0-13.0 [facility] Comment on above: Performed By: #### T SH, GFR, CBC, LIPID, A1C, ADIFF, CMP, ANEU, FT4 ####[address] [place], [place] [address] Neutrophils/100 WBC (Bld) 69.0 % Normal 50.0-75.0 [facility] Comment on above: Performed By: #### T SH, GFR, CBC, LIPID, A1C, ADIFF, CMP, ANEU, FT4 ####[address] [place], [place] [address] .GFRon 10-21-2024 GFR 56 ml/min/1.73sqm [facility] [place] Comment on above: Result Comment: GFR Population [...] GFR, LIPID, CBC, CMP, TSH, ADIFF #### [place] [address] [place], [place] [address] GFR Non- 46 ml/min/1.73sqm [facility] [place] Comment on above: Result Comment: GFR Population [...] GFR, LIPID, CBC, CMP, TSH, ADIFF #### [address] [address] .NEUABSon 10-21-2024 Neutrophil, Absolute 4.6 10 3/mcL Normal 2.3-8.[address] [facility] Comment on above: Performed By: #### T SH, GFR, CBC, LIPID, A1C, ADIFF, CMP, ANEU, FT4 ####[address] [address] A1Con 10-21-2024 Glucose [Mass/Vol] 183 mg/dL Normal [facility] Comment on above: Result Comment: Eugenia mated Average Glucose calculated by equation ((28.7xA1C)-46.7) Estimated average glucose (eAG) is a calculated value from Hemoglobin A1C and is screening representative of the average blood glucose level in the last 2-3 month period. Normal range: less than 114 mg/dL Performed By: #### A 1C, FT4, ANEU, GFR, LIPID, CBC, CMP, TSH, ADIFF #### [address] [address] HbA1c (Bld) [Mass fraction] 8.0 % High 4.3-6.4 [facility] Comment on above: Performed By: #### A 1C, FT4, ANEU, GFR, LIPID, CBC, CMP, TSH, ADIFF #### [place] [address] [place], [place] [address] CBCon 10-21-2024 Erythrocyte distribution width (RBC) [Ratio] 14.2 % Normal 11.5-15.5 [facility] Comment on above: Performed By: #### T SH, GFR, CBC, LIPID, A1C, ADIFF, CMP, ANEU, FT4 ####[address] [place], [place] [address] Hematocrit (Bld) [Volume fraction] 37.8 % Normal 34.0-46.0 [facility] Comment on above: Performed By: #### T SH, GFR, CBC, LIPID, A1C, ADIFF, CMP, ANEU, FT4 ####[address] [place], [place] [address] Hgb 12.2 G/dL Normal 12.0-16.0 [facility] Comment on above: Performed By: #### T SH, GFR, CBC, LIPID, A1C, ADIFF, CMP, ANEU, FT4 ####[address] [place] [id number] MCH (RBC) [Entitic mass] 30.7 pg Normal 27.0-33.0 [facility] Comment on above: Performed By: #### T SH, GFR, CBC, LIPID, A1C, ADIFF, CMP, ANEU, FT4 ####[address] [place], [place] [address] MCHC 32.2 G/dL Normal 32.0-36.0 [facility] Comment on above: Performed By: #### T SH, GFR, CBC, LIPID, A1C, ADIFF, CMP, ANEU, FT4 ####[place] [address] [place], [place] [address] MCV (RBC) [Entitic vol] 95.2 fL Normal 80.0-99.0 [facility] Comment on above: Performed By: #### T SH, GFR, CBC, LIPID, A1C, ADIFF, CMP, ANEU, FT4 ####[place] [address] [place], [place] [address] Platelet 216 10 3/mcL Normal 150-450 [facility] Comment on above: Performed By: #### T SH, GFR, CBC, LIPID, A1C, ADIFF, CMP, ANEU, FT4 ####[address] [place] [phone] Platelet mean volume (Bld) [Entitic vol] 7.6 fL Normal 6.6-10.5 [facility] Comment on above: Performed By: #### T SH, GFR, CBC, LIPID, A1C, ADIFF, CMP, ANEU, FT4 ####[place] [address] [place], [place] [address] RBC 3.96 10 6/mcL Low 4.10-5.30 [facility] Comment on above: Performed By: #### T SH, GFR, CBC, LIPID, A1C, ADIFF, CMP, ANEU, FT4 ####[address] [place], [place] [address] WBC 6.6 10 3/mcL Normal 4.5-10.8 [facility] Comment on above: Performed By: #### T SH, GFR, CBC, LIPID, A1C, ADIFF, CMP, ANEU, FT4 ####[address] [address] CMPon 10-21-2024 Albumin Level 3.4 G/dL Normal 3.4-4.8 [facility] Comment on above: Performed By: #### A 1C, FT4, ANEU, GFR, LIPID, CBC, CMP, TSH, ADIFF #### [address] [address] Albumin/Globulin [Mass ratio] 1.1 {ratio} Normal 1.1-2.5 [facility] Comment on above: Performed By: #### A 1C, FT4, ANEU, GFR, LIPID, CBC, CMP, TSH, ADIFF #### [address] [address] ALP [Catalytic activity/Vol] 71 U/L Normal 40-135 [facility] Comment on above: Performed By: #### A 1C, FT4, ANEU, GFR, LIPID, CBC, CMP, TSH, ADIFF #### [place] [address] [place], [place] [address] ALT [Catalytic activity/Vol] 12 U/L Low 14-59 [facility] Comment on above: Performed By: #### A 1C, FT4, ANEU, GFR, LIPID, CBC, CMP, TSH, ADIFF #### [address] [address] AST [Catalytic activity/Vol] 18 U/L Normal 10-40 [facility] Comment on above: Performed By: #### A 1C, FT4, ANEU, GFR, LIPID, CBC, CMP, TSH, ADIFF #### [address] [address] Bili Total 0.5 mg/dL Normal 0.2-1.0 [facility] Comment on above: Result Comment: Use of this assay is not recommended for patients undergoing treatment with eltrombopag due to the potential for falsely elevated results. Performed By: #### A 1C, FT4, ANEU, GFR, LIPID, CBC, CMP, TSH, ADIFF #### [address] [address] BUN/Creatinine Ratio 16 ratio Normal 7-27 [facility] Comment on above: Performed By: #### A 1C, FT4, ANEU, GFR, LIPID, CBC, CMP, TSH, ADIFF #### [address] [address] Calcium [Mass/Vol] 9.0 mg/dL Normal 8.4-10.2 [facility] Comment on above: Performed By: #### A 1C, FT4, ANEU, GFR, LIPID, CBC, CMP, TSH, ADIFF #### [address] [address] Chloride [Moles/Vol] 106 mmol/L Normal 98-107 [facility] Comment on above: Performed By: #### A 1C, FT4, ANEU, GFR, LIPID, CBC, CMP, TSH, ADIFF #### [address] [address] CO2 [Moles/Vol] 26 mmol/L Normal 23-31 [facility] Comment on above: Performed By: #### A 1C, FT4, ANEU, GFR, LIPID, CBC, CMP, TSH, ADIFF #### [address] [address] Creatinine [Mass/Vol] 1.13 mg/dL High 0.55-1.02 [facility] Comment on above: Result Comment: Test ing performed on Siemens Dimension EXL analyzer using a modified kinetic Eusebio technique. Performed By: #### A 1C, FT4, ANEU, GFR, LIPID, CBC, CMP, TSH, ADIFF #### [address] [address] Electrolyte Balance 11.0 mEq/L Normal 4.0-15.0 [facility] Comment on above: Performed By: #### A 1C, FT4, ANEU, GFR, LIPID, CBC, CMP, TSH, ADIFF #### [address] [address] Globulin 3.0 G/dL Normal [facility] Comment on above: Performed By: #### A 1C, FT4, ANEU, GFR, LIPID, CBC, CMP, TSH, ADIFF #### [address] [address] Glucose [Mass/Vol] 162 mg/dL High 83-110 [facility] Comment on above: Performed By: #### A 1C, FT4, ANEU, GFR, LIPID, CBC, CMP, TSH, ADIFF #### [address] [address] Potassium [Moles/Vol] 4.0 mmol/L Normal 3.5-5.1 [facility] Comment on above: Performed By: #### A 1C, FT4, ANEU, GFR, LIPID, CBC, CMP, TSH, ADIFF #### [address] [address] Sodium [Moles/Vol] 143 mmol/L Normal 136-145 [facility] Comment on above: Performed By: #### A 1C, FT4, ANEU, GFR, LIPID, CBC, CMP, TSH, ADIFF #### [address] [address] Total Protein 6.4 G/dL Normal 6.4-8.2 [facility] Comment on above: Performed By: #### A 1C, FT4, ANEU, GFR, LIPID, CBC, CMP, TSH, ADIFF #### [address] [address] Urea nitrogen [Mass/Vol] 18 mg/dL Normal 7-18 [facility] Comment on above: Performed By: #### A 1C, FT4, ANEU, GFR, LIPID, CBC, CMP, TSH, ADIFF #### [place] [address] [place], [place] [address] FT4on 10-21-2024 Free T4 [Mass/Vol] 0.97 ng/dL Normal 0.76-1.46 [facility] Comment on above: Performed By: #### A 1C, FT4, ANEU, GFR, LIPID, CBC, CMP, TSH, ADIFF #### [place] [address] LABORATORYOrdered By: SYSTEM SYSTEM on 10-21-2024 Albumin [...] calculated value from Hemoglobin A1C and is screening representative of the average blood glucose level [...] 149 mg/dL Normal 0-200 [facility] Comment on above: Result Comment: Chol esterol Reference Interval: Less than 200 Desirable 200-239 Borderline high risk 240 and above High risk Performed By: #### A 1C, FT4, ANEU, GFR, LIPID, CBC, CMP, TSH, ADIFF #### [address] [address] Cholesterol in HDL [Mass/Vol] 38 mg/dL Low 40-60 [facility] Comment on above: Performed By: #### A 1C, FT4, ANEU, GFR, LIPID, CBC, CMP, TSH, ADIFF #### [place] [address] [place], [place] [address] Cholesterol in LDL [Mass/Vol] 75 mg/dL Normal 0-130 [facility] Comment on above: Performed By: #### A 1C, FT4, ANEU, GFR, LIPID, CBC, CMP, TSH, ADIFF #### [place] [address] [place], [place] [address] Triglyceride [Mass/Vol] 181 mg/dL High 0-150 [facility] Comment on above: Result Comment: Trig lyceride Reference Interval: Less than 150 Normal 150-199 Borderline high risk 200-499 High risk 500 or higher Very high risk Performed By: #### A 1C, FT4, ANEU, GFR, LIPID, CBC, CMP, TSH, ADIFF #### [place] [address] [place], [place] [address] TSHon 10-21-2024 TSH Qn 1.72 m[IU]/L Normal 0.36-3.74 [facility] Comment on above: Performed By: #### A 1C, FT4, ANEU, GFR, LIPID, CBC, CMP, TSH, ADIFF #### [address] [address] LABORATORYOrdered By: SYSTEM SYSTEM on 07-10-2024 Albumin [...] calculated value from Hemoglobin A1C and is screening representative of the average blood glucose level [...] risk .GFRon 04-03-2024 GFR 60 ml/min/1.73sqm Normal [facility] ([place]) Comment on above: Result Comment: GFR Population [...] FR, A1C, CMP, LIPID, TSH #### [address] [place] [address] GFR Non- 50 ml/min/1.73sqm Normal [facility] ([place]) Comment on above: Result Comment: GFR Population [...] G FR, A1C, CMP, LIPID, TSH #### [address] [address] A1Con 04-03-2024 HbA1c (Bld) [Mass fraction] 7.9 % High 4.3-6.4 [facility] ([place] Comment on above: Performed By: #### G FR, A1C, CMP, LIPID, TSH #### [address] [address] CMPon 04-03-2024 Albumin Level 3.6 G/dL Normal 3.4-4.8 [facility] ([place]) Comment on above: Performed By: #### G FR, A1C, CMP, LIPID, TSH #### [address] [address] Albumin/Globulin [Mass ratio] 1.1 {ratio} Normal 1.1-2.5 [facility] ([place]) Comment on above: Performed By: #### G FR, A1C, CMP, LIPID, TSH #### [address] [address] ALP [Catalytic activity/Vol] 101 U/L Normal 40-135 [facility] ([place] Comment on above: Performed By: #### G FR, A1C, CMP, LIPID, TSH #### [address] [address] ALT [Catalytic activity/Vol] 36 U/L Normal 14-59 [facility] ([place] Comment on above: Performed By: #### G FR, A1C, CMP, LIPID, TSH #### [address] [address] AST [Catalytic activity/Vol] 18 U/L Normal 10-40 [facility] ([place] Comment on above: Performed By: #### G FR, A1C, CMP, LIPID, TSH #### [address] [address] Bili Total 0.6 mg/dL Normal 0.2-1.0 [facility] ([place]) Comment on above: Result Comment: Use of this assay is not recommended for patients undergoing treatment with eltrombopag due to the potential for falsely elevated results. Performed By: #### G FR, A1C, CMP, LIPID, TSH #### [address] [address] BUN/Creatinine Ratio 16 ratio Normal 7-27 [facility] Comment on above: Performed By: #### G FR, A1C, CMP, LIPID, TSH #### [address] [address] Calcium [Mass/Vol] 8.8 mg/dL Normal 8.4-10.2 [facility] ([place]) Comment on above: Performed By: #### G FR, A1C, CMP, LIPID, TSH #### [address] [address] Chloride [Moles/Vol] 104 mmol/L Normal 98-107 [facility] [place] Comment on above: Performed By: #### G FR, A1C, CMP, LIPID, TSH #### [address] [address] CO2 [Moles/Vol] 31 mmol/L Normal 23-31 [facility] ([place] Comment on above: Performed By: #### G FR, A1C, CMP, LIPID, TSH #### [address] [address] Creatinine [Mass/Vol] 1.06 mg/dL High 0.55-1.02 [facility] ([place]) Comment on above: Performed By: #### G FR, A1C, CMP, LIPID, TSH #### [address] [address] Electrolyte Balance 8.0 mEq/L Normal 4.0-15.0 [facility] [place] Comment on above: Performed By: #### G FR, A1C, CMP, LIPID, TSH #### [address] [address] Globulin 3.2 G/dL Normal [facility] ([place]) Comment on above: Performed By: #### G FR, A1C, CMP, LIPID, TSH #### [address] [address] Glucose [Mass/Vol] 167 mg/dL High 83-110 [facility] ([place]) Comment on above: Performed By: #### G FR, A1C, CMP, LIPID, TSH #### [address] [address] Potassium [Moles/Vol] 4.5 mmol/L Normal 3.5-5.1 [facility] ([place]) Comment on above: Performed By: #### G FR, A1C, CMP, LIPID, TSH #### L[address] [address] Sodium [Moles/Vol] 143 mmol/L Normal 136-145 [facility] ([place]) Comment on above: Performed By: #### G FR, A1C, CMP, LIPID, TSH #### [address] [address] Total Protein 6.8 G/dL Normal 6.4-8.2 [facility] ([place]) Comment on above: Performed By: #### G FR, A1C, CMP, LIPID, TSH #### [address] [address] Urea nitrogen [Mass/Vol] 17 mg/dL Normal 7-18 [facility] ([place] Comment on above: Performed By: #### G FR, A1C, CMP, LIPID, TSH #### [address] [address] LABORATORYOrdered By: SYSTEM SYSTEM on 04-03-2024 Albumin [...] 04-03-2024 Cholesterol [Mass/Vol] 167 mg/dL Normal 0-200 [facility] ([place]) Comment on above: Result Comment: Chol esterol Reference Interval: Less than 200 Desirable 200-239 Borderline high risk 240 and above High risk Performed By: #### G FR, A1C, CMP, LIPID, TSH #### [address] [address] Cholesterol in HDL [Mass/Vol] 40 mg/dL Normal 40-60 [facility] ([place]) Comment on above: Performed By: #### G FR, A1C, CMP, LIPID, TSH #### [address] [address] Cholesterol in LDL [Mass/Vol] 77 mg/dL Normal 0-130 [facility] ([place]) Comment on above: Performed By: #### G FR, A1C, CMP, LIPID, TSH #### [address] [address] Triglyceride [Mass/Vol] 251 mg/dL High 0-150 [facility] ([place]) Comment on above: Result Comment: Trig lyceride Reference Interval: Less than 150 Normal 150-199 Borderline high risk 200-499 High risk 500 or higher Very high risk Performed By: #### G FR, A1C, CMP, LIPID, TSH #### [address] [address] TSHon 04-03-2024 TSH Qn 2.17 m[IU]/L Normal 0.36-3.74 [facility] ([place]) Comment on above: Performed By: #### G FR, A1C, CMP, LIPID, TSH #### [address] [address] .Auto Diffon 01-10-2024 Basophil, Absolute 0.1 10 3/mcL Normal 0.0-0.2 [facility] [place] Comment on above: Performed By: #### G FR, A1C, CMP, LIPID, TSH #### [address] [address] Basophils/100 WBC (Bld) 1.0 % Normal 0.0-2.5 [facility] ([place]) Comment on above: Performed By: #### G FR, A1C, CMP, LIPID, TSH #### [address] [address] Eosinophil, Absolute 0.4 10 3/mcL Normal 0.0-0.4 [facility] [place] Comment on above: Performed By: #### G FR, A1C, CMP, LIPID, TSH #### [address] [address] Eosinophils/100 WBC (Bld) 6.6 % Normal 0.0-7.0 [facility] ([place]) Comment on above: Performed By: #### G FR, A1C, CMP, LIPID, TSH #### [address] [address] Lymphocyte, Absolute 1.1 10 3/mcL Normal 0.8-3.9 [facility] ([place] Comment on above: Performed By: #### G FR, A1C, CMP, LIPID, TSH #### [address] [address] Lymphocytes/100 WBC (Bld) 18.4 % Normal 10.0-50.0 [facility] ([place]) Comment on above: Performed By: #### G FR, A1C, CMP, LIPID, TSH #### [address] [address] Monocyte, Absolute 0.5 10 3/mcL Normal 0.2-1.0 [facility] [place] Comment on above: Performed By: #### G FR, A1C, CMP, LIPID, TSH #### [address] [address] Monocytes/100 WBC (Bld) 8.4 % Normal 1.7-13.0 [facility] ([place]) Comment on above: Performed By: #### G FR, A1C, CMP, LIPID, TSH #### [address] [address] Neutrophils/100 WBC (Bld) 65.6 % Normal 37.0-80.0 [facility] ([place]) Comment on above: Performed By: #### G FR, A1C, CMP, LIPID, TSH #### [address] [address] .GFRon 01-10-2024 GFR 57 ml/min/1.73sqm Normal [facility] ([place]) Comment on above: Result Comment: GFR Population [...] G FR, A1C, CMP, LIPID, TSH #### [address] [address] GFR Non- 47 ml/min/1.73sqm Normal [facility] ([place] Comment on above: Result Comment: GFR Population [...] FR, A1C, CMP, LIPID, TSH #### Lali [address] [address] .NEUABSon 01-10-2024 Neutrophil, Absolute 3.9 10 3/mcL Normal 2.9-6.2 [facility] [place] Comment on above: Performed By: #### G FR, A1C, CMP, LIPID, TSH #### [address] [address] A1Con 01-10-2024 HbA1c (Bld) [Mass fraction] 8.0 % High 4.3-6.4 [facility] ([place]) Comment on above: Performed By: #### G FR, A1C, CMP, LIPID, TSH #### [place] [id number] CBCon 01-10-2024 Erythrocyte distribution width (RBC) [Ratio] 15.8 % High 11.5-14.5 [facility] ([place] Comment on above: Performed By: #### G FR, A1C, CMP, LIPID, TSH #### [place] [address] Hematocrit (Bld) [Volume fraction] 33.2 % Low 37.0-47.0 [facility] ([place]) Comment on above: Performed By: #### G FR, A1C, CMP, LIPID, TSH #### [place] [address] Hgb 10.9 G/dL Low 12.0-16.0 [facility] ([place] Comment on above: Performed By: #### G FR, A1C, CMP, LIPID, TSH #### [place] [address] MCH (RBC) [Entitic mass] 29.8 pg Normal 27.0-31.2 [facility] ([place]) Comment on above: Performed By: #### G FR, A1C, CMP, LIPID, TSH #### [place] [address] MCHC 32.8 G/dL Low 33.0-37.0 [facility] ([place] Comment on above: Performed By: #### G FR, A1C, CMP, LIPID, TSH #### [place] [address] MCV (RBC) [Entitic vol] 90.8 fL Normal 80.0-94.0 [facility] ([place] Comment on above: Performed By: #### G FR, A1C, CMP, LIPID, TSH #### [address] [address] Platelet 202 10 3/mcL Normal 130-400 [facility] ([place] Comment on above: Performed By: #### G FR, A1C, CMP, LIPID, TSH #### [place] [address] [address] Platelet mean volume (Bld) [Entitic vol] 7.6 fL Normal 7.4-10.4 [facility] ([place] Comment on above: Performed By: #### G FR, A1C, CMP, LIPID, TSH #### [address] [address] RBC 3.65 10 6/mcL Low 4.20-5.40 [facility] ([place] Comment on above: Performed By: #### G FR, A1C, CMP, LIPID, TSH #### [address] [address] WBC 5.9 10 3/mcL Normal 4.6-10.8 [facility] ([place] Comment on above: Performed By: #### G FR, A1C, CMP, LIPID, TSH #### [address] [id number] CMPon 01-10-2024 Albumin Level 3.5 G/dL Normal 3.4-4.8 [facility] ([place] Comment on above: Performed By: #### G FR, A1C, CMP, LIPID, TSH #### [address] [address] Albumin/Globulin [Mass ratio] 1.0 {ratio} Low 1.1-2.5 [facility] ([place] Comment on above: Performed By: #### G FR, A1C, CMP, LIPID, TSH #### [address] [address] ALP [Catalytic activity/Vol] 101 U/L Normal 40-135 [facility] ([place] Comment on above: Performed By: #### G FR, A1C, CMP, LIPID, TSH #### [address] [address] ALT [Catalytic activity/Vol] 21 U/L Normal 14-59 [facility] ([place]) Comment on above: Performed By: #### G FR, A1C, CMP, LIPID, TSH #### [address] [address] AST [Catalytic activity/Vol] 17 U/L Normal 10-40 [facility] ([place]) Comment on above: Performed By: #### G FR, A1C, CMP, LIPID, TSH #### [address] [address] Bili Total 0.6 mg/dL Normal 0.2-1.0 [facility] ([place]) Comment on above: Result Comment: Use of this assay is not recommended for patients undergoing treatment with eltrombopag due to the potential for falsely elevated results. Performed By: #### G FR, A1C, CMP, LIPID, TSH #### [address] [address] BUN/Creatinine Ratio 18 ratio Normal 7-27 [facility] [place] Comment on above: Performed By: #### G FR, A1C, CMP, LIPID, TSH #### [address] [address] Calcium [Mass/Vol] 8.8 mg/dL Normal 8.4-10.2 [facility] ([place]) Comment on above: Performed By: #### G FR, A1C, CMP, LIPID, TSH #### [address] [address] Chloride [Moles/Vol] 103 mmol/L Normal 98-107 [facility] [place] Comment on above: Performed By: #### G FR, A1C, CMP, LIPID, TSH #### [address] [address] CO2 [Moles/Vol] 26 mmol/L Normal 23-31 [facility] ([place] Comment on above: Performed By: #### G FR, A1C, CMP, LIPID, TSH #### [address] [address] Creatinine [Mass/Vol] 1.11 mg/dL High 0.55-1.02 [facility] ([place]) Comment on above: Performed By: #### G FR, A1C, CMP, LIPID, TSH #### [address] [address] Electrolyte Balance 11.0 mEq/L Normal 4.0-15.0 [facility] [place] Comment on above: Performed By: #### G FR, A1C, CMP, LIPID, TSH #### [address] [address] Globulin 3.4 G/dL Normal [facility] ([place] Comment on above: Performed By: #### G FR, A1C, CMP, LIPID, TSH #### [address] [address] Glucose [Mass/Vol] 163 mg/dL High 83-110 [facility] ([place] Comment on above: Performed By: #### G FR, A1C, CMP, LIPID, TSH #### [address] [address] Potassium [Moles/Vol] 3.9 mmol/L Normal 3.5-5.1 [facility] ([place]) Comment on above: Performed By: #### G FR, A1C, CMP, LIPID, TSH #### [address] [address] Sodium [Moles/Vol] 140 mmol/L Normal 136-145 [facility] ([place] Comment on above: Performed By: #### G FR, A1C, CMP, LIPID, TSH #### [address] [address] Total Protein 6.9 G/dL Normal 6.4-8.2 [facility] ([place] Comment on above: Performed By: #### G FR, A1C, CMP, LIPID, TSH #### [address] [address] Urea nitrogen [Mass/Vol] 20 mg/dL High 7-18 [facility] ([place] Comment on above: Performed By: #### G FR, A1C, CMP, LIPID, TSH #### [address] [place], [place] [address] FT4on 01-10-2024 Free T4 [Mass/Vol] 0.87 ng/dL Normal 0.76-1.46 [facility] ([place] Comment on above: Performed By: #### G FR, A1C, CMP, LIPID, TSH #### [place] [id number] [place], [place] [address] LABORATORYOrdered By: SYSTEM SYSTEM on 01-10-2024 Albumin [...] 01-10-2024 Cholesterol [Mass/Vol] 165 mg/dL Normal 0-200 [facility] ([place] Comment on above: Result Comment: Chol esterol Reference Interval: Less than 200 Desirable 200-239 Borderline high risk 240 and above High risk Performed By: #### G FR, A1C, CMP, LIPID, TSH #### [address] [address] Cholesterol in HDL [Mass/Vol] 39 mg/dL Low 40-60 [facility] ([place] Comment on above: Performed By: #### G FR, A1C, CMP, LIPID, TSH #### [address] [address] Cholesterol in LDL [Mass/Vol] 86 mg/dL Normal 0-130 [facility] ([place] Comment on above: Performed By: #### G FR, A1C, CMP, LIPID, TSH #### [address] [address] Triglyceride [Mass/Vol] 202 mg/dL High 0-150 [facility] ([place]) Comment on above: Result Comment: Trig lyceride Reference Interval: Less than 150 Normal 150-199 Borderline high risk 200-499 High risk 500 or higher Very high risk Performed By: #### G FR, A1C, CMP, LIPID, TSH #### [address] [address] TSHon 01-10-2024 TSH Qn 2.46 m[IU]/L Normal 0.36-3.74 [facility] ([place] Comment on above: Performed By: #### G FR, A1C, CMP, LIPID, TSH #### [address] [address] .Auto Diffon 09-18-2023 Basophil, Absolute 0.0 10 3/mcL Normal 0.0-0.2 [facility] [place] Comment on above: Performed By: #### T SH, ANEU, CBC, ADIFF, A1C, GFR, CMP, URIC, FT4, LIPID #### [address] [address] Basophils/100 WBC (Bld) 0.9 % Normal 0.0-2.5 [facility] ([place] Comment on above: Performed By: #### T SH, ANEU, CBC, ADIFF, A1C, GFR, CMP, URIC, FT4, LIPID #### [address] [address] Eosinophil, Absolute 0.2 10 3/mcL Normal 0.0-0.4 [facility] [place] Comment on above: Performed By: #### T SH, ANEU, CBC, ADIFF, A1C, GFR, CMP, URIC, FT4, LIPID #### [address] [address] Eosinophils/100 WBC (Bld) 3.7 % Normal 0.0-7.0 [facility] ([place] Comment on above: Performed By: #### T SH, ANEU, CBC, ADIFF, A1C, GFR, CMP, URIC, FT4, LIPID #### [address] [address] Lymphocyte, Absolute 1.6 10 3/mcL Normal 0.8-3.9 [facility] [place] Comment on above: Performed By: #### T SH, ANEU, CBC, ADIFF, A1C, GFR, CMP, URIC, FT4, LIPID #### [address] [address] Lymphocytes/100 WBC (Bld) 28.6 % Normal 10.0-50.0 [facility] ([place] Comment on above: Performed By: #### T SH, ANEU, CBC, ADIFF, A1C, GFR, CMP, URIC, FT4, LIPID #### [address] [address] Monocyte, Absolute 0.4 10 3/mcL Normal 0.2-1.0 [facility] [place] Comment on above: Performed By: #### T SH, ANEU, CBC, ADIFF, A1C, GFR, CMP, URIC, FT4, LIPID #### [address] [address] Monocytes/100 WBC (Bld) 7.9 % Normal 1.7-13.0 [facility] ([place] Comment on above: Performed By: #### T SH, ANEU, CBC, ADIFF, A1C, GFR, CMP, URIC, FT4, LIPID #### [address] [address] Neutrophils/100 WBC (Bld) 58.9 % Normal 37.0-80.0 [facility] ([place] Comment on above: Performed By: #### T SH, ANEU, CBC, ADIFF, A1C, GFR, CMP, URIC, FT4, LIPID #### [address] [address] .GFRon 09-18-2023 GFR 52 ml/min/1.73sqm Normal [facility] ([place] Comment on above: Result Comment: GFR Population [...] G FR, A1C, CMP, LIPID, TSH #### [address] [address] GFR Non- 43 ml/min/1.73sqm Normal [facility] ([place]) Comment on above: Result Comment: GFR Population [...] G FR, A1C, CMP, LIPID, TSH #### [address] [address] .NEUABSon 09-18-2023 Neutrophil, Absolute 3.3 10 3/mcL Normal 2.9-6.2 [facility] [place] Comment on above: Performed By: #### T SH, ANEU, CBC, ADIFF, A1C, GFR, CMP, URIC, FT4, LIPID #### [address] [address] A1Con 09-18-2023 HbA1c (Bld) [Mass fraction] 7.5 % High 4.3-6.4 [facility] ([place]) Comment on above: Performed By: #### G FR, A1C, CMP, LIPID, TSH #### [address] [address] CBCon 09-18-2023 Erythrocyte distribution width (RBC) [Ratio] 14.7 % High 11.5-14.5 [facility] ([place] Comment on above: Performed By: #### T SH, ANEU, CBC, ADIFF, A1C, GFR, CMP, URIC, FT4, LIPID #### [address] [address] Hematocrit (Bld) [Volume fraction] 34.5 % Low 37.0-47.0 [facility] ([place] Comment on above: Performed By: #### T SH, ANEU, CBC, ADIFF, A1C, GFR, CMP, URIC, FT4, LIPID #### [address] [address] Hgb 11.2 G/dL Low 12.0-16.0 [facility] ([place]) Comment on above: Performed By: #### T SH, ANEU, CBC, ADIFF, A1C, GFR, CMP, URIC, FT4, LIPID #### [address] [address] MCH (RBC) [Entitic mass] 30.3 pg Normal 27.0-31.2 [facility] ([place] Comment on above: Performed By: #### T SH, ANEU, CBC, ADIFF, A1C, GFR, CMP, URIC, FT4, LIPID #### [address] [address] MCHC 32.6 G/dL Low 33.0-37.0 [facility] ([place]) Comment on above: Performed By: #### T SH, ANEU, CBC, ADIFF, A1C, GFR, CMP, URIC, FT4, LIPID #### [address] [address] MCV (RBC) [Entitic vol] 93.1 fL Normal 80.0-94.0 [facility] ([place] Comment on above: Performed By: #### T SH, ANEU, CBC, ADIFF, A1C, GFR, CMP, URIC, FT4, LIPID #### [address] [address] Platelet 202 10 3/mcL Normal 130-400 [facility] ([place]) Comment on above: Performed By: #### T SH, ANEU, CBC, ADIFF, A1C, GFR, CMP, URIC, FT4, LIPID #### [address] [address] Platelet mean volume (Bld) [Entitic vol] 7.6 fL Normal 7.4-10.4 [facility] ([place]) Comment on above: Performed By: #### T SH, ANEU, CBC, ADIFF, A1C, GFR, CMP, URIC, FT4, LIPID #### [address] [address] RBC 3.70 10 6/mcL Low 4.20-5.40 [facility] ([place]) Comment on above: Performed By: #### T SH, ANEU, CBC, ADIFF, A1C, GFR, CMP, URIC, FT4, LIPID #### [address] [address] WBC 5.6 10 3/mcL Normal 4.6-10.8 [facility] ([place]) Comment on above: Performed By: #### T SH, ANEU, CBC, ADIFF, A1C, GFR, CMP, URIC, FT4, LIPID #### [address] [address] CMPon 09-18-2023 Albumin Level 3.7 G/dL Normal 3.4-4.8 [facility] ([place]) Comment on above: Performed By: #### G FR, A1C, CMP, LIPID, TSH #### [address] [address] Albumin/Globulin [Mass ratio] 1.2 {ratio} Normal 1.1-2.5 [facility] ([place]) Comment on above: Performed By: #### G FR, A1C, CMP, LIPID, TSH #### [address] [address] ALP [Catalytic activity/Vol] 91 U/L Normal 40-135 [facility] ([place]) Comment on above: Performed By: #### G FR, A1C, CMP, LIPID, TSH #### [address] [address] ALT [Catalytic activity/Vol] 15 U/L Normal 14-59 [facility] ([place] Comment on above: Performed By: #### G FR, A1C, CMP, LIPID, TSH #### [address] [address] AST [Catalytic activity/Vol] 19 U/L Normal 10-40 [facility] ([place]) Comment on above: Performed By: #### G FR, A1C, CMP, LIPID, TSH #### [address] [address] Bili Total 0.3 mg/dL Normal 0.2-1.0 [facility] ([place]) Comment on above: Result Comment: Use of this assay is not recommended for patients undergoing treatment with eltrombopag due to the potential for falsely elevated results. Performed By: #### G FR, A1C, CMP, LIPID, TSH #### [address] [address] BUN/Creatinine Ratio 13 ratio Normal 7-27 [facility] [place] Comment on above: Performed By: #### G FR, A1C, CMP, LIPID, TSH #### [address] [address] Calcium [Mass/Vol] 9.4 mg/dL Normal 8.4-10.2 [facility] ([place]) Comment on above: Performed By: #### G FR, A1C, CMP, LIPID, TSH #### [address] [address] Chloride [Moles/Vol] 105 mmol/L Normal 98-107 [facility] [place] Comment on above: Performed By: #### G FR, A1C, CMP, LIPID, TSH #### [address] [address] CO2 [Moles/Vol] 27 mmol/L Normal 23-31 [facility] ([place]) Comment on above: Performed By: #### G FR, A1C, CMP, LIPID, TSH #### [address] [address] Creatinine [Mass/Vol] 1.21 mg/dL High 0.55-1.02 [facility] ([place]) Comment on above: Performed By: #### G FR, A1C, CMP, LIPID, TSH #### [address] [address] Electrolyte Balance 11.0 mEq/L Normal 4.0-15.0 [facility] [place] Comment on above: Performed By: #### G FR, A1C, CMP, LIPID, TSH #### [address] [address] Globulin 3.1 G/dL Normal [facility] ([place]) Comment on above: Performed By: #### G FR, A1C, CMP, LIPID, TSH #### [place] [phone] Glucose [Mass/Vol] 150 mg/dL High 83-110 [facility] ([place] Comment on above: Performed By: #### G FR, A1C, CMP, LIPID, TSH #### [place] [phone] Potassium [Moles/Vol] 3.9 mmol/L Normal 3.5-5.1 [facility] ([place]) Comment on above: Performed By: #### G FR, A1C, CMP, LIPID, TSH #### [place] [phone] Sodium [Moles/Vol] 143 mmol/L Normal 136-145 [facility] ([place] Comment on above: Performed By: #### G FR, A1C, CMP, LIPID, TSH #### [address] [address] Total Protein 6.8 G/dL Normal 6.4-8.2 [facility] ([place] Comment on above: Performed By: #### G FR, A1C, CMP, LIPID, TSH #### [place] [phone] Urea nitrogen [Mass/Vol] 16 mg/dL Normal 7-18 [facility] ([place] Comment on above: Performed By: #### G FR, A1C, CMP, LIPID, TSH #### [place] [phone] FT4on 09-18-2023 Free T4 [Mass/Vol] 0.93 ng/dL Normal 0.76-1.46 [facility] ([place] Comment on above: Performed By: #### T SH, ANEU, CBC, ADIFF, A1C, GFR, CMP, URIC, FT4, LIPID #### [place] [address] [place], [place] [address] LABORATORYOrdered By: SYSTEM SYSTEM on 09-18-2023 Albumin [...] 09-18-2023 Cholesterol [Mass/Vol] 156 mg/dL Normal 0-200 [facility] ([place] Comment on above: Result Comment: Chol esterol Reference Interval: Less than 200 Desirable 200-239 Borderline high risk 240 and above High risk Performed By: #### G FR, A1C, CMP, LIPID, TSH #### [address] [address] Cholesterol in HDL [Mass/Vol] 45 mg/dL Normal 40-60 [facility] ([place] Comment on above: Performed By: #### G FR, A1C, CMP, LIPID, TSH #### [address] [address] Cholesterol in LDL [Mass/Vol] 74 mg/dL Normal 0-130 [facility] ([place] Comment on above: Performed By: #### G FR, A1C, CMP, LIPID, TSH #### [address] [address] Triglyceride [Mass/Vol] 184 mg/dL High 0-150 [facility] ([place]) Comment on above: Result Comment: Trig lyceride Reference Interval: Less than 150 Normal 150-199 Borderline high risk 200-499 High risk 500 or higher Very high risk Performed By: #### G FR, A1C, CMP, LIPID, TSH #### [address] [address] TSHon 09-18-2023 TSH Qn 0.78 m[IU]/L Normal 0.36-3.74 [facility] ([place]) Comment on above: Performed By: #### T SH, ANEU, CBC, ADIFF, A1C, GFR, CMP, URIC, FT4, LIPID #### [place] [id number] URICon 09-18-2023 Uric Acid Lvl 4.8 mg/dL Normal 2.6-6.2 [facility] ([place] Comment on above: Performed By: #### G FR, A1C, CMP, LIPID, TSH #### [address] [address] .GFRon 09-11-2023 GFR 57 ml/min/1.73sqm Normal [facility] ([place]) Comment on above: Result Comment: GFR Population [...] G FR, A1C, CMP, LIPID, TSH #### [address] [address] GFR Non- 47 ml/min/1.73sqm Normal [facility] ([place] Comment on above: Result Comment: GFR Population [...] G FR, A1C, CMP, LIPID, TSH #### [address] [address] BMPon 09-11-2023 BUN/Creatinine Ratio 10 ratio Normal 7-27 [facility] [place] Comment on above: Performed By: #### G FR, A1C, CMP, LIPID, TSH #### [address] [address] Calcium [Mass/Vol] 9.2 mg/dL Normal 8.4-10.2 [facility] ([place] Comment on above: Performed By: #### G FR, A1C, CMP, LIPID, TSH #### [address] [address] Chloride [Moles/Vol] 104 mmol/L Normal 98-107 [facility] [place] Comment on above: Performed By: #### G FR, A1C, CMP, LIPID, TSH #### [address] [address] CO2 [Moles/Vol] 29 mmol/L Normal 23-31 [facility] ([place] Comment on above: Performed By: #### G FR, A1C, CMP, LIPID, TSH #### [address] [address] Creatinine [Mass/Vol] 1.12 mg/dL High 0.55-1.02 [facility] ([place]) Comment on above: Performed By: #### G FR, A1C, CMP, LIPID, TSH #### [address] [address] Electrolyte Balance 9.0 mEq/L Normal 4.0-15.0 [facility] [place] Comment on above: Performed By: #### G FR, A1C, CMP, LIPID, TSH #### [address] [address] Glucose [Mass/Vol] 160 mg/dL High 83-110 [facility] ([place] Comment on above: Performed By: #### G FR, A1C, CMP, LIPID, TSH #### [address] [address] Potassium [Moles/Vol] 4.0 mmol/L Normal 3.5-5.1 [facility] ([place]) Comment on above: Performed By: #### G FR, A1C, CMP, LIPID, TSH #### [address] [address] Sodium [Moles/Vol] 142 mmol/L Normal 136-145 [facility] ([place] Comment on above: Performed By: #### G FR, A1C, CMP, LIPID, TSH #### [address] [address] Urea nitrogen [Mass/Vol] 11 mg/dL Normal 7-18 [facility] ([place] Comment on above: Performed By: #### G FR, A1C, CMP, LIPID, TSH #### [address] [address] .Auto Diffon 07-03-2023 Basophil, Absolute 0.0 10 3/mcL Normal 0.0-0.2 [facility] [place] Comment on above: Performed By: #### G FR, A1C, CMP, LIPID, TSH #### [address] [address] Basophils/100 WBC (Bld) 0.6 % Normal 0.0-2.5 [facility] ([place] Comment on above: Performed By: #### G FR, A1C, CMP, LIPID, TSH #### [address] [address] Eosinophil, Absolute 0.3 10 3/mcL Normal 0.0-0.4 [facility] [place] Comment on above: Performed By: #### G FR, A1C, CMP, LIPID, TSH #### [address] [address] Eosinophils/100 WBC (Bld) 5.2 % Normal 0.0-7.0 [facility] ([place] Comment on above: Performed By: #### G FR, A1C, CMP, LIPID, TSH #### [address] [address] Lymphocyte, Absolute 1.5 10 3/mcL Normal 0.8-3.9 [facility] [place] Comment on above: Performed By: #### G FR, A1C, CMP, LIPID, TSH #### [address] [address] Lymphocytes/100 WBC (Bld) 23.3 % Normal 10.0-50.0 [facility] ([place]) Comment on above: Performed By: #### G FR, A1C, CMP, LIPID, TSH #### [address] [address] Monocyte, Absolute 0.7 10 3/mcL Normal 0.2-1.0 [facility] [place] Comment on above: Performed By: #### G FR, A1C, CMP, LIPID, TSH #### [address] [address] Monocytes/100 WBC (Bld) 11.3 % Normal 1.7-13.0 [facility] ([place]) Comment on above: Performed By: #### G FR, A1C, CMP, LIPID, TSH #### [address] [address] Neutrophils/100 WBC (Bld) 59.6 % Normal 37.0-80.0 [facility] ([place]) Comment on above: Performed By: #### G FR, A1C, CMP, LIPID, TSH #### [address] [address] .GFRon 07-03-2023 GFR Non- 37 ml/min/1.73sqm Normal [facility] ([place]) Comment on above: Result Comment: GFR Population [...] G FR, A1C, CMP, LIPID, TSH #### [address] [address] GFR 45 ml/min/1.73sqm Normal [facility] ([place]) Comment on above: Result Comment: GFR Population [...] G FR, A1C, CMP, LIPID, TSH #### [address] [address] .NEUABSon 07-03-2023 Neutrophil, Absolute 3.8 10 3/mcL Normal 2.9-6.2 [facility] [place] Comment on above: Performed By: #### G FR, A1C, CMP, LIPID, TSH #### [address] [address] A1Con 07-03-2023 HbA1c (Bld) [Mass fraction] 7.3 % High 4.3-6.4 [facility] ([place]) Comment on above: Performed By: #### G FR, A1C, CMP, LIPID, TSH #### [address] [address] CBCon 07-03-2023 Erythrocyte distribution width (RBC) [Ratio] 15.3 % High 11.5-14.5 [facility] ([place]) Comment on above: Performed By: #### G FR, A1C, CMP, LIPID, TSH #### [address] [address] Hematocrit (Bld) [Volume fraction] 33.4 % Low 37.0-47.0 [facility] ([place]) Comment on above: Performed By: #### G FR, A1C, CMP, LIPID, TSH #### [place] [phone] Hgb 11.0 G/dL Low 12.0-16.0 [facility] ([place]) Comment on above: Performed By: #### G FR, A1C, CMP, LIPID, TSH #### [place] [phone] MCH (RBC) [Entitic mass] 31.0 pg Normal 27.0-31.2 [facility] ([place] Comment on above: Performed By: #### G FR, A1C, CMP, LIPID, TSH #### [place] [phone] MCHC 33.0 G/dL Normal 33.0-37.0 [facility] ([place]) Comment on above: Performed By: #### G FR, A1C, CMP, LIPID, TSH #### [address] [address] MCV (RBC) [Entitic vol] 93.9 fL Normal 80.0-94.0 [facility] ([place]) Comment on above: Performed By: #### G FR, A1C, CMP, LIPID, TSH #### [place] [id number] Platelet 197 10 3/mcL Normal 130-400 [facility] ([place] Comment on above: Performed By: #### G FR, A1C, CMP, LIPID, TSH #### [address] [address] Platelet mean volume (Bld) [Entitic vol] 7.5 fL Normal 7.4-10.4 [facility] ([place]) Comment on above: Performed By: #### G FR, A1C, CMP, LIPID, TSH #### [address] [address] RBC 3.56 10 6/mcL Low 4.20-5.40 [facility] ([place] Comment on above: Performed By: #### G FR, A1C, CMP, LIPID, TSH #### [address] [address] WBC 6.4 10 3/mcL Normal 4.6-10.8 [facility] ([place] Comment on above: Performed By: #### G FR, A1C, CMP, LIPID, TSH #### [address] [address] CMPon 07-03-2023 Albumin Level 3.6 G/dL Normal 3.4-4.8 [facility] ([place]) Comment on above: Performed By: #### G FR, A1C, CMP, LIPID, TSH #### [address]ali [address] [address] Albumin/Globulin [Mass ratio] 1.2 {ratio} Normal 1.1-2.5 [facility] ([place]) Comment on above: Performed By: #### G FR, A1C, CMP, LIPID, TSH #### [address] [address] ALP [Catalytic activity/Vol] 87 U/L Normal 40-135 [facility] ([place] Comment on above: Performed By: #### G FR, A1C, CMP, LIPID, TSH #### [address] [address] ALT [Catalytic activity/Vol] 15 U/L Normal 14-59 [facility] ([place] Comment on above: Performed By: #### G FR, A1C, CMP, LIPID, TSH #### [address] [address] AST [Catalytic activity/Vol] 16 U/L Normal 10-40 [facility] ([place] Comment on above: Performed By: #### G FR, A1C, CMP, LIPID, TSH #### [address] [address] Bili Total 0.6 mg/dL Normal 0.2-1.0 [facility] ([place] Comment on above: Result Comment: Use of this assay is not recommended for patients undergoing treatment with eltrombopag due to the potential for falsely elevated results. Performed By: #### G FR, A1C, CMP, LIPID, TSH #### [address] [address] BUN/Creatinine Ratio 17 ratio Normal 7-27 [facility] [place] Comment on above: Performed By: #### G FR, A1C, CMP, LIPID, TSH #### [address] [address] Calcium [Mass/Vol] 8.8 mg/dL Normal 8.4-10.2 [facility] ([place] Comment on above: Performed By: #### G FR, A1C, CMP, LIPID, TSH #### [address] [address] Chloride [Moles/Vol] 102 mmol/L Normal 98-107 [facility] [place] Comment on above: Performed By: #### G FR, A1C, CMP, LIPID, TSH #### [address] [address] CO2 [Moles/Vol] 28 mmol/L Normal 23-31 [facility] ([place] Comment on above: Performed By: #### G FR, A1C, CMP, LIPID, TSH #### [address] [address] Creatinine [Mass/Vol] 1.36 mg/dL High 0.55-1.02 [facility] ([place]) Comment on above: Performed By: #### G FR, A1C, CMP, LIPID, TSH #### [address] [address] Electrolyte Balance 8.0 mEq/L Normal 4.0-15.0 [facility] [place] Comment on above: Performed By: #### G FR, A1C, CMP, LIPID, TSH #### [address] [address] Globulin 3.1 G/dL Normal [facility] ([place] Comment on above: Performed By: #### G FR, A1C, CMP, LIPID, TSH #### [address] [address] Glucose [Mass/Vol] 187 mg/dL High 83-110 [facility] ([place] Comment on above: Performed By: #### G FR, A1C, CMP, LIPID, TSH #### [address] [address] Potassium [Moles/Vol] 4.3 mmol/L Normal 3.5-5.1 [facility] ([place] Comment on above: Performed By: #### G FR, A1C, CMP, LIPID, TSH #### [address] [address] Sodium [Moles/Vol] 138 mmol/L Normal 136-145 [facility] ([place] Comment on above: Performed By: #### G FR, A1C, CMP, LIPID, TSH #### [address] [address] Total Protein 6.7 G/dL Normal 6.4-8.2 [facility] ([place] Comment on above: Performed By: #### G FR, A1C, CMP, LIPID, TSH #### [address] [address] Urea nitrogen [Mass/Vol] 23 mg/dL High 7-18 [facility] ([place] Comment on above: Performed By: #### G FR, A1C, CMP, LIPID, TSH #### [address] [address] LABORATORYOrdered By: SYSTEM SYSTEM on 07-03-2023 Basophil, [...] 07-03-2023 Cholesterol [Mass/Vol] 153 mg/dL Normal 0-200 [facility] ([place] Comment on above: Result Comment: Chol esterol Reference Interval: Less than 200 Desirable 200-239 Borderline high risk 240 and above High risk Performed By: #### G FR, A1C, CMP, LIPID, TSH #### [address] [address] Cholesterol in HDL [Mass/Vol] 34 mg/dL Low 40-60 [facility] ([place] Comment on above: Performed By: #### G FR, A1C, CMP, LIPID, TSH #### [address] [address] Cholesterol in LDL [Mass/Vol] 50 mg/dL Normal 0-130 [facility] ([place] Comment on above: Performed By: #### G FR, A1C, CMP, LIPID, TSH #### [address] [address] Triglyceride [Mass/Vol] 347 mg/dL High 0-150 [facility] ([place] Comment on above: Result Comment: Trig lyceride Reference Interval: Less than 150 Normal 150-199 Borderline high risk 200-499 High risk 500 or higher Very high risk Performed By: #### G FR, A1C, CMP, LIPID, TSH #### [address] [address] TSHon 07-03-2023 TSH Qn 2.24 m[IU]/L Normal 0.36-3.74 [facility] ([place]) Comment on above: Performed By: #### G FR, A1C, CMP, LIPID, TSH #### [facility] [address] [place], [place] [address] LABORATORYOrdered By: SYSTEM SYSTEM on 03-29-2023 Albumin [...] 150 mg/dL AO ADM SS LABORATORYOrdered By: PLY[employer] SYSTEM on 01-05-2023 Albumin BCP dye [Mass/Vol] [...] 12-24-2020 Albumin [Mass/Vol] 3.5 g/dL Normal 3.2-5.0 [facility] Comment on above: Performed By: #### L 500.42964, L500.19301 #### [facility] [address] [place], [place] [address] Albumin/Globulin [Mass ratio] 1.2 {ratio} Normal 0.8-2.0 [facility] Comment on above: Performed By: #### L 500.88571, L500.74652 #### [facility] [address] [place] [address] ALK PHOS 77 U/L Normal 45-117 [facility] Comment on above: Performed By: #### L 500.71192, L500.90570 #### [facility] [address] [place] [address] ALT [Catalytic activity/Vol] 16 U/L Normal 13-61 [facility] Comment on above: Result Comment: RESU LTS MAY BE FALSELY DEPRESSED AFTER THE ADMINISTRATION OF SULFASALAZINE AND/OR SULFAPYRIDINE. Performed By: #### L 500.48546, L500.69857 #### [facility] [address] [place] [address] Anion gap [Moles/Vol] 3 mmol/L Low 5-16 [facility] Comment on above: Performed By: #### L 500.04855, L500.33546 #### [facility] [address] [place], [place] [address] AST [Catalytic activity/Vol] 28 U/L Normal 8-34 [facility] Comment on above: Result Comment: RESU LTS MAY BE FALSELY DEPRESSED AFTER THE ADMINISTRATION OF SULFASALAZINE AND/OR SULFAPYRIDINE. Performed By: #### L 500.17487, L500.89945 #### [facility] [place] [id number] BILI TOTAL 0.50 MG/DL Normal 0.2-1.0 [facility] Comment on above: Performed By: #### L 500.28518, L500.07708 #### [facility] [address] [place] [address] Calcium [Mass/Vol] 9.8 mg/dL Normal 8.5-10.5 [facility] Comment on above: Result Comment: NOTE NEW NORMAL RANGE DUE TO REAGENT CHANGE Performed By: #### L 500.67070, L500.88771 #### [facility] [address] [place] [id number] Chloride [Moles/Vol] 104 mmol/L Normal 98-107 [facility] Comment on above: Performed By: #### L 500.18470, L500.13842 #### [facility] [address] [place] [address] CO2 [Moles/Vol] 31.0 mmol/L Normal 21-32 [facility] Comment on above: Performed By: #### L 500.62125, L500.99207 #### [facility] [place] [address] Creatinine [Mass/Vol] 1.00 mg/dL High 0.510-0.[address] [facility] Comment on above: Result Comment: Mireya ents receiving either N-Acetylcysteine (NAC) or Metamizole prior to venipuncture, may have falsely depressed results. Performed By: #### L 500.07878, L500.24241 #### [facility] [address] [place] [address] Globulin (S) [Mass/Vol] 2.8 g/dL Normal 2.2-4.2 [facility] Comment on above: Performed By: #### L 500.63017, L500.94360 #### [facility] [place] [address] Glucose [Mass/Vol] 132 mg/dL High 70-100 [facility] Comment on above: Result Comment: 70-1 00- Normal Fasting; 100-125 Impaired Fasting; greater than 126 on more than one result- Diabetes. ADA guidelines. Results may be falsely elevated after the administration of Sulfapyridine. Results may be falsely depressed after the administration of Sulfasalazine. Performed By: #### L 500.36368, L500.67198 #### [facility] [address] [place] [address] Potassium [Moles/Vol] 3.9 mmol/L Normal 3.5-5.1 [facility] Comment on above: Result Comment: Slig ht Hemolysis, Result may be affected. Performed By: #### L 500.70307, L500.43552 #### [facility] [address] [place] [address] Protein [Mass/Vol] 6.3 g/dL Normal 6.0-8.5 [facility] Comment on above: Performed By: #### L 500.08414, L500.45933 #### [facility] [address] [place] [address] Sodium [Moles/Vol] 138 mmol/L Normal 136-145 [facility] Comment on above: Performed By: #### L 500.18156, L500.21205 #### [facility] [address] [place] [address] Urea nitrogen [Mass/Vol] 20 mg/dL Normal 7-26 [facility] Comment on above: Performed By: #### L 500.14523, L500.96034 #### [facility] [address] [place] [address] Urea nitrogen/Creatinine [Mass ratio] 20 mg/mg Normal 15-24 [facility] Comment on above: Performed By: #### L 500.18199, L500.58416 #### [facility] [address] [place] [address] GFR ESTon 12-24-2020 IF AMER Greater than 60 Normal [facility] Comment on above: Performed By: #### L 500.37768, L500.36483 #### [facility] [address] [place] [address] IF non-AFR AMER 54 Normal [facility] Comment on above: Performed By: #### L 500.96283, L500.18501 #### [facility] [address] [place] [address] CBCon 12-22-2020 Erythrocyte distribution width (RBC) [Ratio] 17.6 % High 11-14.5 [facility] Comment on above: Performed By: #### L 500.11698, L500.20496 #### [facility] [address] [place] [address] Hematocrit (Bld) [Volume fraction] 31.3 % Low 35.0-47.0 [facility] Comment on above: Performed By: #### L 500.34882, L500.33663 #### [facility] [address] [place] [address] Hemoglobin (Bld) [Mass/Vol] 9.5 g/dL Low 11.5-15.5 [facility] Comment on above: Performed By: #### L 500.93351, L500.16410 #### [facility] [address] [place] [address] MCHC (RBC) [Mass/Vol] 30.4 g/dL Low 32.0-36.0 [facility] Comment on above: Performed By: #### L 500.88142, L500.49621 #### [facility] [address] [place], [place] [address] MCV (RBC) [Entitic vol] 95.7 fL Normal 80.0-99.0 [facility] Comment on above: Performed By: #### L 500.74586, L500.96999 #### [facility] [address] [place] [address] Nucleated RBC/100 WBC (Bld) [Ratio] 0.0 % Normal Less than 1 [facility] Comment on above: Performed By: #### L 500.69649, L500.92630 #### [facility] [address] [place], [place] [address] Platelet mean volume (Bld) [Entitic vol] 10.3 fL Normal 9.4-12.4 [facility] Comment on above: Performed By: #### L 500.12483, L500.57539 #### [facility] [address] [place], [place] [address] PLT 148 K/CU MM Low 150-450 [facility] Comment on above: Performed By: #### L 500.50365, L500.20417 #### [facility] [address] [place], [place] [address] RBC 3.27 M/CU MM Low 3.90-5.30 [facility] Comment on above: Performed By: #### L 500.49211, L500.52234 #### [facility] [address] [place] [address] WBC 5.5 K/CUMM Normal 4.5-11.0 [facility] Comment on above: Performed By: #### L 500.89928, L500.61920 #### [facility] [address] [place] [address] PBNP TESTon 12-22-2020 Natriuretic peptide B (Bld) [Mass/Vol] 696 pg/mL High 0-450 [facility] Comment on above: Result Comment: NT-p [...] NEW NORMAL RANGE Performed By: #### L 500.34198 #### [facility] [address] [place] [address] CBCon 12-18-2020 Erythrocyte distribution width (RBC) [Ratio] 18.0 % High 11-14.5 [facility] Comment on above: Performed By: #### L 200.65932 #### [facility] [address] [place] [address] Hematocrit (Bld) [Volume fraction] 31.7 % Low 35.0-47.0 [facility] Comment on above: Performed By: #### L 200.50839 #### [facility] [address] [place] [address] Hemoglobin (Bld) [Mass/Vol] 9.5 g/dL Low 11.5-15.5 [facility] Comment on above: Performed By: #### L 200.41055 #### [facility] [address] [place] [address] MCHC (RBC) [Mass/Vol] 30.0 g/dL Low 32.0-36.0 [facility] Comment on above: Performed By: #### L 200.33804 #### [facility] [address] [place] [address] MCV (RBC) [Entitic vol] 98.1 fL Normal 80.0-99.0 [facility] Comment on above: Performed By: #### L 200.15627 #### [facility] [address] [place] [address] Nucleated RBC/100 WBC (Bld) [Ratio] 0.0 % Normal Less than 1 [facility] Comment on above: Performed By: #### L 200.32558 #### [facility] [place] [address] Platelet mean volume (Bld) [Entitic vol] 10.4 fL Normal 9.4-12.4 [facility] Comment on above: Performed By: #### L 200.51860 #### [facility] [address] [place] [address] PLT 211 K/CU MM Normal 150-450 [facility] Comment on above: Performed By: #### L 200.19321 #### [facility] [address] [place] [address] RBC 3.23 M/CU MM Low 3.90-5.30 [facility] Comment on above: Performed By: #### L 200.69657 #### [facility] [address] [place], [place] [address] WBC 6.5 K/CUMM Normal 4.5-11.0 [facility] Comment on above: Performed By: #### L 200.58433 #### [facility] [address] [place] [address] PBNP TESTon 12-18-2020 Natriuretic peptide B (Bld) [Mass/Vol] 1278 pg/mL High 0-450 [facility] Comment on above: Result Comment: NT-p [...] NEW NORMAL RANGE Performed By: #### L 500.67705, L500.84910 #### [facility] [place] [address] BMPon 12-17-2020 Anion gap [Moles/Vol] 7 mmol/L Normal 5-16 [facility] Comment on above: Performed By: #### L 500.55557, L500.59399 #### [facility] [place] [address] Calcium [Mass/Vol] 9.5 mg/dL Normal 8.5-10.5 [facility] Comment on above: Result Comment: NOTE NEW NORMAL RANGE DUE TO REAGENT CHANGE Performed By: #### L 500.22686, L500.79128 #### [facility] [address] [place] [address] Chloride [Moles/Vol] 106 mmol/L Normal 98-107 [facility] Comment on above: Performed By: #### L 500.98596, L500.32456 #### [facility] [address] [place] [address] CO2 [Moles/Vol] 28.0 mmol/L Normal 21-32 [facility] Comment on above: Performed By: #### L 500.73283, L500.48373 #### [facility] [address] [place] [address] Creatinine [Mass/Vol] 1.01 mg/dL High 0.510-0.[address] [facility] Comment on above: Result Comment: Mireya ents receiving either N-Acetylcysteine (NAC) or Metamizole prior to venipuncture, may have falsely depressed results. Performed By: #### L 500.48297, L500.67410 #### [facility] [place] [address] Glucose [Mass/Vol] 128 mg/dL High 70-100 [facility] Comment on above: Result Comment: 70-1 00- Normal Fasting; 100-125 Impaired Fasting; greater than 126 on more than one result- Diabetes. ADA guidelines. Results may be falsely elevated after the administration of Sulfapyridine. Results may be falsely depressed after the administration of Sulfasalazine. Performed By: #### L 500.55059, L500.16789 #### [facility] [address] [place] [address] Potassium [Moles/Vol] 4.0 mmol/L Normal 3.5-5.1 [facility] Comment on above: Performed By: #### L 500.08120, L500.07139 #### [facility] [address] [place] [address] Sodium [Moles/Vol] 141 mmol/L Normal 136-145 [facility] Comment on above: Performed By: #### L 500.53124, L500.09889 #### [facility] [address] [place] [address] Urea nitrogen [Mass/Vol] 21 mg/dL Normal 7-26 [facility] Comment on above: Performed By: #### L 500.66783, L500.57009 #### [facility] [address] [place], [place] [address] Urea nitrogen/Creatinine [Mass ratio] 21 mg/mg Normal 15-24 [facility] Comment on above: Performed By: #### L 500.00569, L500.63203 #### [facility] [address] [place] [address] GFR ESTon 12-17-2020 IF AMER Greater than 60 Normal [facility] Comment on above: Performed By: #### L 500.11664, L500.81151 #### [facility] [address] [place] [address] IF non-AFR AMER 53 Normal [facility] Comment on above: Performed By: #### L 500.17916, L500.82333 #### [facility] [address] [place] [address] BMPon 12-14-2020 Anion gap [Moles/Vol] 3 mmol/L Low 5-16 [facility] Comment on above: Performed By: #### L 500.90837, L500.56060 #### [facility] [place] [id number] Calcium [Mass/Vol] 9.7 mg/dL Normal 8.5-10.5 [facility] Comment on above: Result Comment: NOTE NEW NORMAL RANGE DUE TO REAGENT CHANGE Performed By: #### L 500.52541, L500.98838 #### [facility] [address] [place] [address] Chloride [Moles/Vol] 109 mmol/L High 98-107 [facility] Comment on above: Performed By: #### L 500.58096, L500.47490 #### [facility] [address] [place] [address] CO2 [Moles/Vol] 30.0 mmol/L Normal 21-32 [facility] Comment on above: Performed By: #### L 500.95472, L500.97736 #### [facility] [address] [place] [address] Creatinine [Mass/Vol] 1.14 mg/dL High 0.510-0.[address] [facility] Comment on above: Result Comment: Mireya ents receiving either N-Acetylcysteine (NAC) or Metamizole prior to venipuncture, may have falsely depressed results. Performed By: #### L 500.19687, L500.74661 #### [facility] [address] [place], [place] [address] Glucose [Mass/Vol] 110 mg/dL High 70-100 [facility] Comment on above: Result Comment: 70-1 00- Normal Fasting; 100-125 Impaired Fasting; greater than 126 on more than one result- Diabetes. ADA guidelines. Results may be falsely elevated after the administration of Sulfapyridine. Results may be falsely depressed after the administration of Sulfasalazine. Performed By: #### L 500.16841, L500.55130 #### [facility] [address] [place] [address] Potassium [Moles/Vol] 4.9 mmol/L Normal 3.5-5.1 [facility] Comment on above: Performed By: #### L 500.58384, L500.97736 #### [facility] [place] [address] Sodium [Moles/Vol] 142 mmol/L Normal 136-145 [facility] Comment on above: Performed By: #### L 500.56066, L500.00447 #### [facility] [address] [place] [address] Urea nitrogen [Mass/Vol] 32 mg/dL High 7-26 [facility] Comment on above: Performed By: #### L 500.36426, L500.13469 #### [facility] [address] [place] [address] Urea nitrogen/Creatinine [Mass ratio] 28 mg/mg High 15-24 [facility] Comment on above: Performed By: #### L 500.04282, L500.00932 #### [facility] [address] [place] [address] CBCon 12-14-2020 Erythrocyte distribution width (RBC) [Ratio] 17.7 % High 11-14.5 [facility] Comment on above: Performed By: #### L 200.26534 #### [facility] [address] [place] [address] Hematocrit (Bld) [Volume fraction] 31.8 % Low 35.0-47.0 [facility] Comment on above: Performed By: #### L 200.61508 #### [facility] [address] [place] [address] Hemoglobin (Bld) [Mass/Vol] 9.6 g/dL Low 11.5-15.5 [facility] Comment on above: Performed By: #### L 200.98052 #### [facility] [address] [place] [address] MCHC (RBC) [Mass/Vol] 30.2 g/dL Low 32.0-36.0 [facility] Comment on above: Performed By: #### L 200.65093 #### [facility] [address] [place] [address] MCV (RBC) [Entitic vol] 97.8 fL Normal 80.0-99.0 [facility] Comment on above: Performed By: #### L 200.92553 #### [facility] [address] [place] [address] Nucleated RBC/100 WBC (Bld) [Ratio] 0.0 % Normal Less than 1 [facility] Comment on above: Performed By: #### L 200.97725 #### [facility] [address] [place] [address] Platelet mean volume (Bld) [Entitic vol] 10.1 fL Normal 9.4-12.4 [facility] Comment on above: Performed By: #### L 200.76081 #### [facility] [address] [place], [place] [address] PLT 248 K/CU MM Normal 150-450 [facility] Comment on above: Performed By: #### L 200.43278 #### [facility] [address] [place] [address] RBC 3.25 M/CU MM Low 3.90-5.30 [facility] Comment on above: Performed By: #### L 200.68040 #### [facility] [address] [place] [address] WBC 5.9 K/CUMM Normal 4.5-11.0 [facility] Comment on above: Performed By: #### L 200.85473 #### [facility] [place] [address] GFR ESTon 12-14-2020 IF AMER 56 Normal [facility] Comment on above: Performed By: #### L 500.95644, L500.91025 #### [facility] [address] [place] [address] IF non-AFR AMER 46 Normal [facility] Comment on above: Performed By: #### L 500.42068, L500.22126 #### [facility] [address] [place] [address] IRON PANELon 12-14-2020 Iron [Mass/Vol] 51 ug/dL Normal 50-170 [facility] Comment on above: Result Comment: Mireya ents treated with metal-binding drugs (e.g.deferoxamine) may have depressed iron values, as chelated iron may not properly react in the Siemens iron assay. Performed By: #### L 500.17598, L500.54369 #### [facility] [address] [place] [address] IRON SAT 20 % Low 22-44 [facility] Comment on above: Performed By: #### L 500.77223, L500.18333 #### [facility] [address] [place] [address]88 TIBC 260 UG/DL Normal 221-481 [facility] Comment on above: Performed By: #### L 500.29940, L500.83094 #### [facility] [address] [place] [address] BMPon 12-03-2020 Anion gap [Moles/Vol] 9 mmol/L Normal 5-16 [facility] Comment on above: Performed By: #### L 500.26591, L500.27421 #### [facility] [address] [place] [address] Performed By: #### L 500.53427, L500.90253 #### [facility] [address] [place] [address] Calcium [Mass/Vol] 9.3 mg/dL Normal 8.5-10.5 [facility] Comment on above: Result Comment: NOTE NEW NORMAL RANGE DUE TO REAGENT CHANGE Performed By: #### L 500.13585, L500.88514 #### [facility] [address] [place] [address] Performed By: #### L 500.36164, L500.79921 #### [facility] [address] [place] [address] Chloride [Moles/Vol] 104 mmol/L Normal 98-107 [facility] Comment on above: Performed By: #### L 500.68165, L500.67828 #### [facility] [address] [place] [address] Performed By: #### L 500.23396, L500.00501 #### [facility] [address] [place] [address] CO2 [Moles/Vol] 27.0 mmol/L Normal 21-32 [facility] Comment on above: Performed By: #### L 500.93610, L500.38543 #### [facility] [address] [place] [address] Performed By: #### L 500.80452, L500.34764 #### [facility] [address] [place], [place] [address] Creatinine [Mass/Vol] 1.13 mg/dL High 0.510-0.[address] [facility] Comment on above: Result Comment: Mireya ents receiving either N-Acetylcysteine (NAC) or Metamizole prior to venipuncture, may have falsely depressed results. Performed By: #### L 500.09085, L500.97532 #### [facility] [address] [place] [address] Performed By: #### L 500.77692, L500.81193 #### [facility] [address] [place], [place] [address] Glucose [Mass/Vol] 155 mg/dL High 70-100 [facility] Comment on above: Result Comment: 70-1 00- Normal Fasting; 100-125 Impaired Fasting; greater than 126 on more than one result- Diabetes. ADA guidelines. Results may be falsely elevated after the administration of Sulfapyridine. Results may be falsely depressed after the administration of Sulfasalazine. Performed By: #### L 500.01598, L500.88893 #### [facility] [address] [place] [address] Performed By: #### L 500.23590, L500.05364 #### [facility] [address] [place] [address] Potassium [Moles/Vol] 3.9 mmol/L Normal 3.5-5.1 [facility] Comment on above: Performed By: #### L 500.52816, L500.29590 #### [facility] [address] [place] [address] Performed By: #### L 500.33928, L500.63619 #### [facility] [address] [place] [id number] Sodium [Moles/Vol] 140 mmol/L Normal 136-145 [facility] Comment on above: Performed By: #### L 500.25120, L500.84689 #### [facility] [address] [place], [place] [id number] Performed By: #### L 500.61983, L500.11629 #### [facility] [address] [place] [address] Urea nitrogen [Mass/Vol] 15 mg/dL Normal 7-26 [facility] Comment on above: Performed By: #### L 500.47789, L500.52200 #### [facility] [address] [place] [address] Performed By: #### L 500.71995, L500.61347 #### [facility] [address] [place] [address] Urea nitrogen/Creatinine [Mass ratio] 13 mg/mg Low 15-24 [facility] Comment on above: Performed By: #### L 500.88821, L500.85063 #### [facility] [address] [place] [address] Performed By: #### L 500.02879, L500.11747 #### [facility] [address] [place] [address] CBCon 12-03-2020 Erythrocyte distribution width (RBC) [Ratio] 18.1 % High 11-14.5 [facility] Comment on above: Performed By: #### L 200.69456 #### [facility] [address] [place] [address] Performed By: #### L 500.83638, L500.88163 #### [facility] [address] [place], [place] [id number] Hematocrit (Bld) [Volume fraction] 33.7 % Low 35.0-47.0 [facility] Comment on above: Performed By: #### L 200.28894 #### [facility] [address] [place] [address] Performed By: #### L 500.41830, L500.00225 #### [facility] [address] [place], [place] [id number] Hemoglobin (Bld) [Mass/Vol] 10.1 g/dL Low 11.5-15.5 [facility] Comment on above: Performed By: #### L 200.66210 #### [facility] [address] [place] [address]# [phone] Performed By: #### L 500.53104, L500.07455 #### [facility] [address] [place] [address]# [phone] MCHC (RBC) [Mass/Vol] 30.0 g/dL Low 32.0-36.0 [facility] Comment on above: Performed By: #### L 200.88405 #### [facility] [address] [place] [address]# [phone] Performed By: #### L 500.96029, L500.00118 #### [facility] [address] [place] [address]# [phone] MCV (RBC) [Entitic vol] 97.4 fL Normal 80.0-99.0 [facility] Comment on above: Performed By: #### L 200.86667 #### [facility] [address] [place] [address]# [phone] Performed By: #### L 500.07347, L500.14278 #### [facility] [address] [place] [address]# [phone] Nucleated RBC/100 WBC (Bld) [Ratio] 0.0 % Normal Less than 1 [facility] Comment on above: Performed By: #### L 200.08824 #### [facility] [address] [place] [address] Performed By: #### L 500.79501, L500.42923 #### [facility] [address] [place] [address] Platelet mean volume (Bld) [Entitic vol] 9.9 fL Normal 9.4-12.4 [facility] Comment on above: Performed By: #### L 200.73628 #### [facility] [place] [address] Performed By: #### L 500.78114, L500.84138 #### [facility] [address] [place] [address] 16498 PLT 201 K/CU MM Normal 150-450 [facility] Comment on above: Performed By: #### L 200.16099 #### [facility] [address] [place] [address] Performed By: #### L 500.64287, L500.69540 #### [facility] [address] [place] [address] 36484 RBC 3.46 M/CU MM Low 3.90-5.30 [facility] Comment on above: Performed By: #### L 200.33935 #### [facility] [address] [place] [address] Performed By: #### L 500.23686, L500.18951 #### [facility] [address] [place] [address] 49512 WBC 6.1 K/CUMM Normal 4.5-11.0 [facility] Comment on above: Performed By: #### L 200.12359 #### [facility] [address] [place] [address] Performed By: #### L 500.50710, L500.33998 #### [facility] [address] [place] [address] 29953 GFR ESTon 12-03-2020 IF AMER 56 Normal [facility] Comment on above: Performed By: #### L 500.20335, L500.84702 #### [facility] [address] [place] [address] Performed By: #### L 500.99204, L500.19071 #### [facility] [address] [place] [address] 47075 IF non-AFR AMER 47 Normal [facility] Comment on above: Performed By: #### L 500.14637, L500.82583 #### [facility] [address] [place] [address] Performed By: #### L 500.50825, L500.23858 #### [facility] [address] [place] [address] PBNP TESTon 12-03-2020 Natriuretic peptide B (Bld) [Mass/Vol] 1783 pg/mL High 0-450 [facility] Comment on above: Result Comment: NT-p [...] NEW NORMAL RANGE Performed By: #### L 500.21613 #### [facility] [address] [place] [address] Vital Signs Date Time Vital Sign Value Performing Clinician Facility 05-01-2025 11:30-0400 Body weight 67.8 kg FITZ GA MD [facility] 01-30-2025 11:30-0400 Body weight 68 kg FITZ GA MD [facility] 01-02-2025 11:55-0400 Body weight 69 kg FITZ GA MD [facility] 06-06-2022 11:20-0400 Body temperature 98.42 [degF] DR HARSHAD TEIXEIRA MD [facility] 06-06-2022 11:20-0400 Diastolic blood pressure 60 mm[Hg] DR HARSHAD TEIXEIRA MD [facility] 06-06-2022 11:20-0400 Heart rate 82 /min DR HARSHAD TEIXEIRA MD [facility] 06-06-2022 11:20-0400 Respiratory rate 14 /min DR HARSHAD TEIXEIRA MD [facility] 06-06-2022 11:20-0400 Systolic blood pressure 123 mm[Hg] DR HARSHAD TEIXEIRA MD [facility] 06-05-2022 06:54-0400 Diastolic blood pressure 61 mm[Hg] RODRI REICHFIELD DO [facility] 06-05-2022 06:54-0400 Heart rate 63 /min RODRI REICHFIELD DO [facility] 06-05-2022 06:54-0400 Respiratory rate 18 /min RODRI REICHFIELD DO [facility] 06-05-2022 06:54-0400 Systolic blood pressure 133 mm[Hg] RODRI REICHFIELD DO [facility] 06-05-2022 04:20-0400 Body temperature 97.7 [degF] RODRI REICHFIELD DO [facility] 06-05-2022 04:20-0400 Diastolic blood pressure 89 mm[Hg] RODRI REICHFIELD DO [facility] 06-05-2022 04:20-0400 Heart rate 65 /min RODRI REICHFIELD DO [facility] 06-05-2022 04:20-0400 Respiratory rate 18 /min [facility] DO [facility] 06-05-2022 04:20-0400 Systolic blood pressure 178 mm[Hg] RODRI [facility] DO [facility] 12-08-2021 12:03-0500 Diastolic blood pressure 69 mm[Hg] DR OC COULTER MD [facility] 12-08-2021 12:03-0500 Heart rate 60 /min DR OC COULTER MD [facility] 12-08-2021 12:03-0500 Respiratory rate 16 /min DR OC COULTER MD [facility] 12-08-2021 12:03-0500 Systolic blood pressure 180 mm[Hg] DR OC COULTER MD [facility] 12-08-2021 10:47-0500 Body height 162.[address] OC COULTER MD [facility] 12-08-2021 10:47-0500 Body temperature 98.42 [degF] DR OC COULTER MD [facility] 12-08-2021 10:47-0500 Body weight 69.[address] OC COULTER MD [facility] 12-08-2021 10:47-0500 Diastolic blood pressure 83 mm[Hg] DR OC COULTER MD [facility] 12-08-2021 10:47-0500 Heart rate 76 /min DR OC COULTER MD [facility] 12-08-2021 10:47-0500 Respiratory rate 24 /min DR OC COULTER MD [facility] 12-08-2021 10:47-0500 Systolic blood pressure 177 mm[Hg] DR OC COULTER MD [facility] 08-27-2021 09:49-0500 Diastolic blood pressure 66 mm[Hg] DR DAQUAN MERCADO MD [facility] 08-27-2021 09:49-0500 Heart rate 66 /min DR DAQUAN MERCADO MD [facility] 08-27-2021 09:49-0500 Respiratory rate 20 /min DR DAQUAN MERCADO MD [facility] 08-27-2021 09:49-0500 Systolic blood pressure 172 mm[Hg] DR DAQUAN MERCADO MD [facility] 08-27-2021 09:34-0500 Diastolic Blood Pressure NBP [address] DAQUAN MERCADO MD [facility] 08-27-2021 09:34-0500 Heart rate 66 /min DR DAQUAN MERCADO MD [facility] 08-27-2021 09:34-0500 Respiratory rate 16 /min DR DAQUAN MERCADO MD [facility] 08-27-2021 09:34-0500 Systolic Blood Pressure NBP [address] DAQUAN MERCADO MD [facility] 08-27-2021 09:15-0500 Body height [address] DAQUAN MERCADO MD [facility] 08-27-2021 09:15-0500 Body weight [address] DAQUAN MERCADO MD [facility] 08-27-2021 09:15-0500 Body weight 28.58 kg/m2 DR DAQUAN MERCADO MD [facility] 08-27-2021 09:15-0500 diastolic 97 mm[Hg] DR DAQUAN MERCADO MD [facility] 08-27-2021 09:15-0500 Heart rate 64 /min DR DAQUAN MERCADO MD [facility] 08-27-2021 09:15-0500 Respiratory rate 19 /min DR DAQUAN MERCADO MD [facility] 08-27-2021 09:15-0500 systolic 164 mm[Hg] DR DAQUAN MERCADO MD [facility] Encounters Encounter Date Encounter Type Care Provider Facility Start: 08-19-2025 ambulatory Farnaz Gudla [facility] Facili ty:[facility] Start: 08-11-2025 ambulatory Farnaz Gudla O[facility] Facili ty:[facility] Start: 06-23-2025 ambulatory Farnaz Gudla OLS Facili ty:[facility] Start: 05-26-2025 End: 05-30-2025 ambulatory FITZ GA MD Facility[facility] Start: 05-26-2025 End: 05-30-2025 Outreach Lab FITZ GA MD [facility] Start: 05-06-2025 End: 05-10-2025 ambulatory FITZ GA MD Facility:[facility] Start: 05-06-2025 End: 05-10-2025 Outreach Lab CAREN GASTON CHAIR 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-[employer]DER [employer] [facility] Start: 05-01-2025 End: 08-01-2025 ambulatory FITZ GA MD Facility:[facility] Start: 05-01-2025 End: 08-01-2025 OTHER THERAPY FITZ GA MD [facility] Start: 04-18-2025 End: 04-18-2025 ambulatory GELA NATARAJAN MD Facility:[facility] Start: 04-18-2025 End: 04-18-2025 Patient encounter procedure GELA NATARAJAN MD [facility] Start: 04-14-2025 End: 04-14-[address] ROMULO BARNARD MD Facility:[place] Brandin ROSADO Start: 04-14-2025 End: 04-14-[address] ROMULO BARNARD MD [facility] Start: 03-28-2025 End: 03-28-2025 ambulatory FITZ GA MD Facility:[facility] Start: 03-28-2025 End: 03-28-2025 Patient encounter procedure FITZ GA MD [facility] Start: 03-20-2025 End: 03-20-2025 ambulatory FITZ GA MD Facility:[facility] Start: 03-06-2025 End: 03-06-2025 ambulatory FITZ GA MD Facility:[facility] Start: 03-06-2025 End: 03-06-2025 Patient encounter procedure FITZ GA MD [facility] Start: 02-20-2025 End: 02-24-2025 ambulatory FITZ GA MD Facility[facility] Start: 02-20-2025 End: 02-24-2025 Outreach Lab FITZ GA MD [facility] Start: 02-18-2025 End: 02-18-2025 ambulatory FITZ GA MD Facility[facility] Start: 02-18-2025 End: 02-18-2025 Patient encounter procedure FITZ GA MD [facility] Start: 02-10-2025 End: 02-14-2025 ambulatory FITZ GA MD Facility:[facility] Start: 02-10-2025 End: 02-14-2025 Outreach Lab FITZ GA MD [facility] Start: 10-21-2024 End: 10-25-2024 ambulatory FITZ GA MD Facility[facility] Start: 10-21-2024 End: 10-25-2024 Outreach Lab FITZ GA MD [facility] Start: 07-10-2024 End: 07-14-2024 Outreach Lab FIZT GA MD [facility] Start: 04-03-2024 End: 04-07-2024 ambulatory FITZ GA MD Facility:[facility] Start: 04-03-2024 End: 04-07-2024 Encounter for general adult medical examination without abnormal findings FITZ GA MD Facility:[facility] Start: 04-03-2024 End: 04-07-2024 Outreach Lab FITZ GA MD [facility] Start: 01-10-2024 End: 01-14-2024 ambulatory FITZ GA MD Facility:[facility] Start: 01-10-2024 End: 01-14-2024 Outreach Lab FITZ GA MD [facility] Start: 09-18-2023 End: 09-22-2023 ambulatory FITZ GA MD Facility:[facility] Start: 09-18-2023 End: 09-22-2023 Outreach Lab FITZ GA MD [facility] Start: 09-11-2023 End: 09-11-2023 ambulatory GELA NATARAJAN MD Facility:[facility] Start: 07-03-2023 End: 07-07-2023 ambulatory FITZ GA MD Facility:[facility] Start: 07-03-2023 End: 07-07-2023 Outreach Lab FITZ GA MD [facility] Start: 03-29-2023 End: 04-02-2023 Outreach Lab FITZ GA MD [facility] Start: 02-01-2023 End: 02-01-[address] DAQUAN MERCADO MD [facility] Start: 01-05-2023 End: 01-05-2023 Patient encounter procedure FITZ GA MD [facility] Start: 11-24-2022 End: 11-24-2022 Patient encounter procedure GELA NATARAJAN MD [facility] Start: 09-21-2022 End: 09-25-2022 Outreach Lab FITZ GA MD [facility] Start: 08-02-2022 End: 08-02-[address] DAQUAN MERCADO MD [facility] Start: 07-15-2022 End: 09-07-[address] ALFONSO RECINOS [facility] Start: 06-22-2022 End: 06-26-2022 Outreach Lab FITZ GA MD [facility] Start: 06-06-2022 End: 06-06-2022 Emergency department patient visit DR HARSHAD TEIXEIRA MD [facility] Start: 06-05-2022 End: 06-05-2022 Emergency department patient visit RODRI SY DO [facility] Start: 06-03-2022 End: 06-03-[address] DAQUAN MERCADO MD [facility] Start: 04-29-2022 End: 04-29-2022 Patient encounter procedure JABIER BLAKE CHAIR INSTALLER-[employer] SAL[employer] PERSON [facility] Start: 04-21-2022 End: 04-21-[address] ROMULO BARNARD MD [facility] Start: 03-23-2022 End: 03-27-2022 Outreach Lab FITZ GA MD [facility] Start: 03-03-2022 End: 03-03-[address] DAQUAN MERCADO MD [facility] Start: 12-21-2021 End: 12-21-2021 Patient encounter procedure FITZ GA MD [facility] Start: 12-08-2021 End: 12-08-2021 Emergency department patient visit DR OC COULTER MD [facility] Start: 10-26-2021 End: 10-26-[address] DAUQAN MERCADO MD [facility] Start: 09-16-2021 End: 09-16-2021 Patient encounter procedure FITZ GA MD [facility] Start: 08-27-2021 End: 08-27-[address] DAQUAN MERCADO MD [facility] Procedures Date Procedure Procedure Detail [...] DR DAQUAN CROUCH MD Comment on above: [facility] Dr. Jose L powell Start: 06-27-2007 [...] Date Immunization Notes Care Provider Fa [facility] 03-15-2022 COVID-19, mRNA, LNP- S, PF, 100 mcg or 50 mcg dose; Translations: [Moderna COVID-19 Vaccine] FITZ GA MD [facility] 09-14-2021 COVID-19, mRNA, LNP- S, PF, 100 mcg/ 0.5 mL dose; Translations: [Moderna COVID-19 Vaccine] FITZ GA MD [facility] 12-03-2020 SARS-CoV-2 (COVID-19 ) mRNA-[address] DAQUAN MERCADO MD [facility] 06-26-2019 influenza virus vaccine, unspecified formulation DR DAQUAN MERCADO MD [facility] 04-08-2019 tetanus and diphther ia toxoids, adsorbed, preservative free, for adult use (2 Lf of tetanus toxoid and 2 Lf of diphtheria toxoid); Translations: [Tenivac] DR DAQUAN MERCADO MD [facility] Payers Date Payer Category Payer Self-pay 2023 Unknown [id number] 2022 Private Health Insurance [id number] 2022 Unknown [id number] 1942 Unknown [id number] 2.16.8 40.1.271153.3.579.2.627 1942 Unknown [id number] 2.16.8 40.1.888279.3.579.2.627 1942 Unknown [id number] 2.16.8 40.1.470306.3.579.2.627 1942 Unknown [id number] 2.16.8 40.1.105706.3.579.2.62 1942 Unknown [id number] 2.16.8 40.1.689718.3.579.2.627 1942 Unknown [id number] 2.16. 840.1.534323.3.579.2.62 1942 Unknown [id number] 2.16. 840.1.825871.3.579.2.62 1942 Unknown [id number] 2.16. 840.1.223454.3.579.2. 1942 Unknown [id number] 2.16. 840.1.649666.3.579.2.62 1942 Unknown [id number] 2.16. 840.1.930260.3.579.2. 1942 Unknown [id number] 2.16. 840.1.594787.3.579.2. 1942 Unknown [id number] 2.16. 840.1.054879.3.579.2.62 1942 Unknown [id number] 2.16.8 40.1.935574.3.579.2.62 1942 Unknown [id number] 2.16.8 40.1.637701.3.579.2.62 1942 Unknown [id number] 2.16.8 40.1.735589.3.579.2.62 1942 Unknown [id number] 2.16.8 40.1.697556.3.579.2.62 1942 Unknown [id number] 2.16.8 40.1.783113.3.579.2.627 Unknown [id number] 2.16.8 40.1.651006.3.579.2.462 Unknown [id number] 2.16.8 40.1.171638.3.579.2.462 Unknown [id number] 2.16.8 40.1.426480.3.579.2.462 Social History Date Type Detail Facility Start: 04-30-2019 End: 03-06-2025 Never smoked tobacco (finding) [facility] Sex Assigned At Female [facility] Sexual Orientation [facility] Start: 07-23-2020 Sex Female (finding) [facility] Functional Status Date Assessment Result Facility 06-06-2022 Functional Status Up ad paula [facility] 06-05-2022 Functional Status Independent [facility] 06-05-2022 Functional Status Standard Safet y ID band on, Allergy Band on, Call device within reach, Bed in low position, Wheels locked, Upper/Half-Length side-rails up, Phone within reach, Visitor at bedside, Safety level maintained [facility] Mental Status Date Assessment Result Facility 06-06-2022 Mental Status Oriented x 4 [facility] 06-05-2022 Mental Status Orientation Oriented x 4 [facility] 06-05-2022 Mental Status [facility] Clinical Notes 08-27-2021 to 05-01-2025 Note Date [...] Dhruv Cook PharmD on 05/01/2025 03:23 PM [facility] 04-18-2025 Note Exam Date Time Procedure Performing Provider Status 04/18/25 9:33 AM Echocardiogram, Adult - CV SHELL MEDLEY MD; Auth (Verified) [facility]05-17-2025 Note. MICRO - Microbiology PROCEDURE: Culture Wound [...] Locations *1: This test was performed at: [facility], [address] [place] [address], [id number]- , [facility]05-13-2025 Note* Exam Date Time Procedure Performing Provider Status 02/18/25 2:[address] Abdomen/Pelvis w/Contrast GUDELIA WISDOM MD; Auth (Verified) [id number] ORIGINAL EXAMINATION: CT OF THE ABDOMEN AND [...] Date: 02/18/2025 4:10:18 PM Ordering Provider: FITZ [facility]04-24-2025 Note Vitals: Weight: 149.6 pounds History and [...] the clinic will help her apply for doctor of podiatric medicine PAP. Patient will follow-up in three months [...] Dhruv Cook PharmD on 01/30/2025 01:29 PM [facility]03-27-2025 Note Vitals: - Weight: 151.8lbs History and Physical: Yolie [facility] on diabetes management. She is currently managed on glimepiride 4mg daily. She was previously well controlled on Farxiga 10mg daily but stoppedtaking this due to the high copay. The main focus on today's visit will be setting her up with [facility] provided glucometer and testing supplies and [...] - Foot Exam: Completed in 2024 by pattern cleaner Blood Glucose Monitoring: Currently is not checking her blood sugar due to not having a working glucometer at home. Will set her up with free [facility] provided glucometer and testing supplies. [...] Assessment & Plan: Provided patient with free [facility] glucometer and testing supplies. Set [...] get her qualified for free Farxiga through doctor of podiatric medicine PAP but patient wishes to discuss with [...] by Adelso Basilio on 01/02/2025 02:21 PM [facility]03-27-2025 Note Vitals: - Weight: 151.8lbs History and Physical: Yolie presents [facility] for an initial visit on diabetes management. She is currently managed on glimepiride 4mg daily. She was previously well controlled on Farxiga 10mg daily but stoppedtaking this due to the high copay. The main focus on today's visit will be setting her up with [facility] provided glucometer and testing supplies and counseling [...] - Foot Exam: Completed in 2024 by pattern cleaner Blood Glucose Monitoring: Currently is not checking her blood sugar due to not having a working glucometer at home. Will set her up with free [facility] provided glucometer and testing supplies. [...] Assessment & Plan: Provided patient with free [facility] glucometer and testing supplies. Set [...] get her qualified for free Farxiga through doctor of podiatric medicine PAP but patient wishes to discuss with [...] by Adelso Basilio on 01/02/2025 02:21 PM [facility]08-29-2022 Hospital Discharge instructions Patient Education 06/06/2022 11:35:08 [...] by your healthcare provider. You may use bncp-scg-dbzzjry pain medicines to control pain, unless another [...] doesn t get better after several days [id number] [employer] [address] [place] [address]. All rights reserved. This information is not [...] injured area. Frequent bruising for unknown reasons [id number] [employer] [address] [place] [address]. All rights reserved. This information is not intended as a substitute for professional medical care. Always follow yourhealthcare professional's instructions. Follow Up Care 06/06/2022 11:12:51 With:FITZ GA MD Address: [place] [address]- When:2-4 days [facility] 08-29-2022 Note Discharge Instructions Thank you for allowing [facility] to assist you with your healthcare needs. [...] When Within 2-4 days Where: [place] [address]- Allergies codeine (N/V) egg albumin [...] by your healthcare provider. You may use nsyy-ixo-imcwbhe pain medicines to control pain, unless another [...] doesn t get better after several days [id number] [employer] [address] [place] [address]. All rights reserved. This information is not [...] injured area. Frequent bruising for unknown reasons [phone] [employer] [address] [place] [address]. All rights reserved. This information is not intended as a substitute for professional medical care. Always follow yourhealthcare professional's instructions. Additional Information VACCINATE! IT SAVES LIVES! Members of the community who have not yet received the COVID-19 vaccine and would like to receive it can visit one of [facility] vaccine clinics. There are many vaccine clinic locations within the [facility]. For locations and available times, please visit [email or web address]. It is important to note that some COVID mobile vaccine clinics are held outdoors and may be canceled in rainy orstormy conditions. To learn more about pediatric vaccinations (ages 5-11), we invite you to visit the [facility] webpage. https://www.[facility].org/pages/8159-Ajuzw-Yukpfkyrhnf-Awtseimcrg-Pihit-Mzk stions.htmlTo learn more about the COVID-19 vaccine, we invite you to visit the [place] website for a list of frequently asked questions. https://[email or web address]/assets/Blknypzd-nzs-Rvjeojdj/njidj-Ozxzshx-Chvkxazgrq _Asked-Questions.pdf [facility] Patient Portal Access Instructions: Stay connected with your healthcare team and access your personal medical information anytime with the [place] [facility]ap Patient Portal. If you would like a full copy of your medical records please contact the [facility] Medical Records Department Monday through Monday between 8a.m. and 4:30p.m. Please follow the directions below to access the portal: 1.Access the email account you provided upon registration to the [facility].2.Look for an invitation email from [facility].3.Open the email and access the invitation link: Accept Invitation to [place] mSnap4.Fill in the required meredith to create your account. Sign into [email or web address] with your username and password that you [...] you will allow to register on the [place] [facility]Snap Patient Portal for access to your information. You can also access the [facility] Patient Portal on the [employer] roya. Simply click on "Health Records" under [...] Call your local pharmacy or go to http://bit.Keoghs/4T3Cz7o to find one close to you.3.Make use of household items: Use cat litter or old coffee grounds to dispose medications if other options arenot available. Mix your drugs with these household products, seal them in an airtight container andthrow it into the garbage. Call [facility]: [phone] to be sure your drugs can be [...] aware that I should contact my doctor. 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 Signature: Date/Time: Relationship to Patient: Witness Name/Signature: Date/Time: [facility] Laligilberto [id number] Note Discharge Instructions Thank you for allowing [...] DO When Within 3-7 days Where: [address] [facility] [facility] [address] [place] [address] Follow Up with Go to emergency room if symptoms worsen When Within 2-4 days Follow Up with FITZ GA MD When Within 2-4 days Where: [address] [facility] [place] [address]- Allergies codeine (N/V) egg albumin (whites) (Unknown) [...] blue color of the hand or foot 2457-4321 [employer] [address] [place] [address], [place] [address]. All rights reserved. This information is not [...] in vomit, stools (black or red color) 2639-9793 [employer] [address] [place] [address], [place] [address]. All rights reserved. This information is not intended as a substitute for professional medical care. Always follow yourhealthcare professional's instructions. Additional Information VACCINATE! IT SAVES LIVES! Members of the community who have not yet received the COVID-19 vaccine and would like to receive it can visit one of [facility] vaccine clinics. There are many vaccine clinic locations within the [facility]. For locations and available times, please visit [email or web address]. It is important to note that some COVID mobile vaccine clinics are held outdoors and may be canceled in rainy orstormy conditions. To learn more about pediatric vaccinations (ages 5-11), we invite you to visit the [facility] webpage. https://www.[facility].org/pages/6003-Xlido-Hxwgoegpamp-Rhvkthhgfp-Hwgtj-Ord stions.htmlTo learn more about the COVID-19 vaccine, we invite you to visit the [place] website for a list of frequently asked questions. https://lali.org/assets/Ieqgldlr-gaj-Imkddsuk/ukpnd-Rmcsnan-Oimxrcjusg _Asked-Questions.pdf [facility] Patient Portal Access Instructions: Stay connected with your healthcare team and access your personal medical information anytime with the [facility] Patient Portal. If you would like a full copy of your medical records please contact the [facility] Medical Records Department Monday through Monday between 8a.m. and 4:30p.m. Please follow the directions below to access the portal: 1.Access the email account you provided upon registration to the [facility].2.Look for an invitation email from [facility].3.Open the email and access the invitation link: Accept Invitation to [facility]4.Fill in the required meredith to create your account. Sign into [email or web address] with your username and password that you [...] you will allow to register on the [facility] Patient Portal for access to your information. You can also access the [facility] Patient Portal on the [employer]. Simply click on "Health Records" under "HealthData" and then click on the [email or web address] logo. HOW TO SAFELY DISPOSE OF PRESCRIPTION [...] Call your local pharmacy or go to http://Parkt.Keoghs/[email or web address] to find one close to you.3.Make use of household items: Use cat litter or old coffee grounds to dispose medications if other options arenot available. Mix your drugs with these household products, seal them in an airtight container andthrow it into the garbage. Call [facility]: [phone] to be sure your drugs can be [...] aware that I should contact my doctor. 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 [address] [place], [place] [address]. All rights reserved. This information is not [...] in vomit, stools (black or red color) 5056-0040 [employer] [address] [place] [address]. All rights reserved. This information is not intended as a substitute for professional medical care. Always follow yourhealthcare professional's instructions. Follow Up Care 06/05/2022 04:08:27 With:DO SAMARIA SAVAGE DO Address: [address] [place] [address] [address] [place] [address] When:3-7 days With:Go to emergency room if symptoms worsen Address:Unknown When:2-4 days With:FITZ GA MD Address: [address] [facility] [facility] [place] [facility] [place] [address]- When:2-4 days [facility] 08-28-2022 Note ORIGINAL EXAMINATION: TWO XRAY VIEWS [...] Sign Date: 06/05/2022 5:46:32 AM Ordering Provider: [facility]08-28-2022 Note ORIGINAL EXAMINATION: TWO XRAY VIEWS OF [...] Sign Date: 06/05/2022 5:46:32 AM Ordering Provider: [facility]03-02-2022 Hospital Discharge instructions Patient Education 12/08/2021 11:44:06 [...] shoulder or upper arm Fever or chills [id number] [employer]. [address] [place] [address], [place] [address]. All rights reserved. This information is not [...] in any part of the body Seizures 0320-2315 [employer] [address] [place] [address]. All rights reserved. This information is not [...] the ears or bruising around the eyes 0153-2692 [employer] [address] [place] [address]. All rights reserved. This information is not intended as a substitute for professional medical care. Always follow yourhealthcare professional's instructions. Follow Up Care 12/08/2021 10:40:55 With:FITZ GA Address: [address] [place] [address] [place] [facility] [place] [address]- Business (1) When:2-4 days Comments:Return to ED if symptoms worsen [facility] 11-19-2021 Evaluation + Plan noteExtracted from: Title:PM [...] s prescription regimen. I have reviewed the [place] Automated Rx Reporting System (OARRS) report for [...] Appointments Appointment Date:09/16/2021 09:30:00 AM Scheduled Provider: Location:[facility] Appointment Type:PC Nurse Lab Appointment Date:09/23/2021 11:30:00 AM Scheduled Provider: Location:[facility] Appointment Type:CV OV Appointment Date:09/27/2021 01:15:00 PM Scheduled Provider:FITZ GA MD [facility] Appointment Type: OV Future Scheduled Tests Laboratory* Basic Metabolic Panel 02/06/21 * Thyroid Stimulating Hormone 03/31/21 * Free T4 03/31/21 * A1C Hemoglobin 09/30/21 * Complete Blood Count 03/31/21 * Lipid Profile 09/30/21 * Complete Metabolic Panel 09/30/21 Radiology* XR Foot Minimum 3 Views Left 06/16/21 * MA Mammo Screening Bilateral w/ Curt 11/03/20 [facility] 11-19-2021 Hospital Discharge instructions Patient Education 08/27/2021 09:25:42 PM Discharge Instructions, Esha wyman (01/08/21) ([id number]) [facility] Discharge Instructions POST PROCEDURE INSTRUCTIONS [...] drawn on (Try to have drawn at [facility] to speed results to us). Stop [...] xx Bring someone to drive you home. [facility] Evaluation + Plan note Future [...] MA Mammo Screening Bilateral w/ Curt 11/03/20 [facility] Evaluation + Plan note Future Appointments Appointment [...] MA Mammo Screening Bilateral w/ Curt 11/03/20 [facility] Evaluation + Plan note Future [...] CT Abdomen and Pelvis w/ contrast 12/08/21 [facility] Evaluation + Plan note Future Appointments Appointment Date:12/28/2021 10:00:00 AM Scheduled Provider:FITZ GA MD [facility] Appointment Type:PC Wellness Primetime Enhanced with Labs [...] CT Abdomen and Pelvis w/ contrast 12/08/21 [facility] Evaluation + Plan note Future Appointments Appointment Date:03/15/2022 01:30:00 PM Scheduled Provider: Location:[facility] Appointment Type:COVID AMB VACCINE Appointment Date:03/23/2022 09:15:00 AM Scheduled Provider: Location:[facility] Appointment Type:PC Nurse Lab Appointment Date:03/31/2022 11:00:00 AM Scheduled Provider:FITZ GA MD Location:[facility] Appointment Type: OV Future Scheduled [...] Appointments Appointment Date:03/29/2022 01:15:00 PM Scheduled Provider: Location:[facility] Appointment Type:CV OV Appointment Date:03/31/2022 11:00:00 AM Scheduled Provider:FITZ GA MD Location:[facility] Appointment Type:PC OV Future Scheduled Tests Laboratory* Complete Blood Count 09/28/21 * Complete Blood Count 03/31/21 Radiology* XR Foot Minimum 3 Views Left 06/16/21 * XR Shoulder Minimum 2 Views Left 12/09/21 * XR Wrist Minimum 3 Views Left 12/09/21 [facility] Evaluation + Plan note Future Appointments Appointment [...] Wrist Minimum 3 Views Left 12/09/21 [facility] Evaluation + Plan note Future Appointments Appointment [...] XR Wrist Minimum 3 Views Left 12/09/21 [facility] Evaluation + Plan note Future [...] XR Wrist Minimum 3 Views Left 12/09/21 [facility] Evaluation + Plan note Future Appointments Appointment Date:07/21/2022 09:30:00 AM Scheduled Provider:FITZ GA MD Location:[facility] Appointment Type:PC OV Appointment Date:08/02/2022 10:30:00 AM Scheduled Provider:DAQUAN MERCADO MD Location:PM Office Appointment Type:PM OV Future Scheduled Tests Laboratory* Complete Blood Count 09/28/21 Radiology* XR Shoulder Minimum 2 Views Left 12/09/21 * XR Wrist Minimum 3 Views Left 12/09/21 [facility] Evaluation + Plan note Future Appointments Appointment Date:09/21/2022 09:45:00 AM Scheduled Provider: Location:[facility] Appointment Type:PC Nurse Lab Appointment Date:10/13/2022 11:30:00 AM Scheduled Provider:FITZ GA MD Location:[facility] Appointment Type:PC OV Future Scheduled Tests Laboratory* Thyroid Stimulating Hormone 10/06/22 * A1C Hemoglobin 10/06/22 * Complete Blood Count 07/07/22 * Complete Blood Count 09/28/21 * Lipid Profile 10/06/22 * Complete Metabolic Panel 10/06/22 Radiology* XR Shoulder Minimum 2 Views Left 12/09/21 * XR Wrist Minimum 3 Views Left 12/09/21 [facility] Evaluation + Plan note Future Appointments Appointment Date:10/13/2022 11:30:00 AM Scheduled Provider:FITZ GA MD Location:[facility] Appointment Type:PC OV Future Scheduled Tests Laboratory* Complete Blood Count 07/07/22 Radiology* XR Shoulder Minimum 2 Views Left 12/09/21 * XR Wrist Minimum 3 Views Left 12/09/21 [facility] Evaluation + Plan note Future Appointments Appointment Date:11/30/2022 01:00:00 PM Scheduled Provider: Location:[facility] Appointment Type:CV Procedure - AOH Echo Appointment Date:01/04/2023 09:30:00 AM Scheduled Provider: Location:[facility] Appointment Type:PC Nurse Lab Appointment Date:01/12/2023 11:30:00 AM Scheduled Provider:FITZ GA MD Location:[facility] Appointment Type:PC Wellness Primetime Enhanced [...] Wrist Minimum 3 Views Left 12/09/21 [facility] Evaluation + Plan note Future Appointments Appointment Date:01/12/2023 11:30:00 AM Scheduled Provider:FITZ GA MD Location:[facility] Appointment Type:PC Wellness Primetime Enhanced Appointment Date:02/01/2023 11:30:00 AM Scheduled Provider:DAQUAN MERCADO MD Location:PM Office Appointment Type:PM OV Appointment Date:02/02/2023 11:45:00 AM Scheduled Provider: Location:[facility] Appointment Type:CV OV Future Scheduled Tests Laboratory* Complete Blood Count 07/07/22 [facility] Evaluation + Plan note Future Appointments Appointment Date:02/02/2023 11:45:00 AM Scheduled Provider: Location:[facility] Appointment Type:CV OV Appointment Date:03/29/2023 09:30:00 AM Scheduled Provider: [facility] Appointment Type:PC Nurse Lab Appointment Date:04/14/2023 10:30:00 AM Scheduled Provider:FITZ GA MD Location:[facility] Appointment Type:PC OV Future Scheduled Tests Laboratory* Thyroid Stimulating Hormone 04/13/23 * A1C Hemoglobin 04/13/23 * Complete Blood Count 07/07/22 * Complete Blood Count 01/12/23 * Lipid Profile 04/13/23 * Complete Metabolic Panel 04/13/23 [facility] Evaluation + Plan note Future Appointments Appointment Date:04/14/2023 10:30:00 AM Scheduled Provider:FITZ GA MD Location:[facility] Appointment Type:PC OV Future Scheduled Tests Laboratory* Complete Blood Count 07/07/22 * Complete Blood Count 01/12/23 [facility] Evaluation + Plan note Future Appointments Appointment Date:07/14/2023 10:45:00 AM Scheduled Provider:FITZ GA MD Location:[facility] Appointment Type:PC OV Appointment Date:08/03/2023 09:10:00 AM Scheduled Provider:DAQUAN MERCADO MD Location:PM Office Appointment Type:PM OV Appointment Date:08/08/2023 10:45:00 AM Scheduled Provider: Location:[facility] Appointment Type:CV OV [facility] Evaluation + Plan note Future Appointments Appointment Date:02/13/2024 11:00:00 AM Scheduled Provider: Location:[facility] Appointment Type:CV OV Appointment Date:04/03/2024 09:00:00 AM Scheduled Provider: [facility] Appointment Type:PC Nurse Lab Appointment Date:04/12/2024 11:00:00 AM Scheduled Provider:FITZ GA MD Location:[facility] Appointment Type:PC OV Future Scheduled Tests Laboratory* Thyroid Stimulating Hormone 04/12/24 * A1C Hemoglobin 04/12/24 * Complete Blood Count 01/12/24 * Lipid Profile 04/12/24 * Complete Metabolic Panel 04/12/24 [facility] Evaluation + Plan note Future Appointments Appointment Date:04/12/2024 11:00:00 AM Scheduled Provider:FITZ GA MD Location:[facility] Appointment Type:PC Wellness Primetime Enhanced Future Scheduled Tests Laboratory* Complete Blood Count 01/12/24 [facility] Evaluation + Plan note Future Appointments Appointment Date:07/19/2024 11:00:00 AM Scheduled Provider:FITZ GA MD Location:[facility] Appointment Type:PC OV Future Scheduled Tests Laboratory* Complete Blood Count 01/12/24 [facility] Evaluation + Plan note Future Appointments Appointment Date:10/13/2023 11:00:00 AM Scheduled Provider:FITZ GA MD Location:[facility] Appointment Type:PC OV Follow Up [facility] Evaluation + Plan note Future Appointments Appointment Date:11/14/2024 02:30:00 PM Scheduled Provider:FITZ GA MD Location:[facility] Appointment Type:PC OV Future Scheduled Tests Laboratory* Complete Blood Count 01/12/24 [facility] Evaluation + Plan note Future Appointments Appointment Date:02/20/2025 03:00:00 PM Scheduled Provider:FITZ GA MD Location:[facility] Appointment Type:PC OV Appointment Date:03/20/2025 10:30:00 AM Scheduled Provider:JESSE NATARAJAN Location:[facility] Appointment Type:CV OV Appointment Date:05/01/2025 11:00:00 AM Scheduled Provider: Location:[facility] Appointment Type:MEDS - Diabetic Individual Visit Future Scheduled Tests Radiology* CT Abdomen and Pelvis w/ contrast 02/12/25 [facility] Evaluation + Plan note Future Appointments Appointment Date:02/20/2025 09:30:00 AM Scheduled Provider:FITZ GA MD Location:[facility] Appointment Type:PC OV Appointment Date:03/20/2025 10:30:00 AM Scheduled Provider:JESSE NATARAJAN Location:[facility] Appointment Type:CV OV Appointment Date:05/01/2025 11:00:00 AM Scheduled Provider: Location:[facility] Appointment Type:MEDS - Diabetic Individual Visit [facility] Evaluation + Plan note Future Appointments Appointment Date:03/06/2025 01:30:00 PM Scheduled Provider:FITZ GA MD Location:[facility] Appointment Type:PC OV Follow Up Appointment Date:03/20/2025 10:30:00 AM Scheduled Provider:JESSE NATARAJAN Location:[facility] Appointment Type:CV OV Appointment Date:05/01/2025 11:00:00 AM Scheduled Provider: Location:[facility] Appointment Type:MEDS - Diabetic Individual Visit [facility] Evaluation + Plan note Future Appointments Appointment Date:03/20/2025 10:30:00 AM Scheduled Provider:JESSE NATARAJAN Location:[facility] Appointment Type:CV OV Appointment Date:05/01/2025 11:00:00 AM Scheduled Provider: Location:[facility] Appointment Type:MEDS - Diabetic Individual Visit Appointment Date:05/26/2025 09:30:00 AM Scheduled Provider: Location:[facility] Appointment Type:PC Nurse Lab Appointment Date:06/05/2025 11:30:00 AM Scheduled Provider:FITZ GA MD Location:[facility] Appointment Type:[facility] Evaluation + Plan note Future Appointments Appointment Date:04/18/2025 09:00:00 AM Scheduled Provider: Location:[facility] Appointment Type:Echo - Echocardiogram Adult Appointment Date:05/01/2025 11:00:00 AM Scheduled Provider: Location:[facility] Appointment Type:MEDS - Diabetic Individual Visit Appointment Date:05/26/2025 09:30:00 AM Scheduled Provider: Location:[facility] Appointment Type:PC Nurse Lab Appointment Date:06/05/2025 11:30:00 AM Scheduled Provider:FITZ GA MD Location:[facility] Appointment Type:[facility] Evaluation + Plan note Future Appointments Appointment Date:05/01/2025 11:00:00 AM Scheduled Provider: Location:[facility] Appointment Type:MEDS - Diabetic Individual Visit Appointment Date:05/26/2025 09:30:00 AM Scheduled Provider: Location:[facility] Appointment Type:PC Nurse Lab Appointment Date:06/05/2025 11:30:00 AM Scheduled Provider:FITZ GA MD Location:[facility] Appointment Type:[facility] Evaluation + Plan note Future Appointments Appointment Date:05/26/2025 09:30:00 AM Scheduled Provider: Location:[facility] Appointment Type:PC Nurse Lab Appointment Date:06/03/2025 09:30:00 AM Scheduled Provider:FITZ GA MD Location:[facility] Appointment Type:[facility] Evaluation + Plan note Future Appointments Appointment Date:06/17/2025 11:30:00 AM Scheduled Provider:FITZ GA MD Location:[facility] Appointment Type:[facility] Evaluation + Plan note Future Appointments Appointment Date:09/01/2025 10:45:00 AM Scheduled Provider:JESSE NATARAJAN Location:[facility] Appointment Type:CV OV [facility] Hospital course Narrative No data available for this section [facility] Hospital Discharge instructions No data available for this section [facility] Note* Noah Swain L: PERFORM Event Display: Pain Management Treatment Agreement Authored Date: [id number] [facility] Progress note No data available for this section [facility] Summary Purpose Family [...] section and content) DATE CREATED AUTHOR 11/28/2021 [facility] Susan Chaudhry DATE CREATED AUTHOR AUTHOR'S ORGANIZ ATION 04/08/2024 [facility] ([place]) DATE CREATED AUTHOR AUTHOR'S ORGANIZ ATION 03/23/2025 [facility] DATE CREATED AUTHOR AUTHOR'S ORGANIZ ATION 08/03/2025 [facility] DATE CREATED AUTHOR AUTHOR'S ORGANIZ ATION 08/20/2025 [facility] Care Team (unrecognized sect ion and content) Personnel Name: FITZ GA MD Address: [address] [place] [address] [place] [address]- [place] Name: Yanira Liz Personnel Name: FITZ GA MD Address: [place] [address]- [place] Name: Yanira Liz Care Team Personnel Name: ANTOLIN DICKENS Position: P4 Advanced Reconstructive Surgeon Member Role: Pain Management Address: Address: [address] [facility] [facility] [address] [facility] [place] [address]- [place] Name: Yanira Liz Position: P3 Scheduling - Foreign Agent Advanced Member Role: Other Name: DAQUAN MERCADO MD Position: P4 Physician - General Surgery Member Role: Pain Management Address: Address: [address] [facility] [address]- [place] Name: FITZ GA MD Position: P4 Physician - Primary Care Member Role: Primary Care Physician Address: Address: [place] [id number] Name: Britni Otto Position: Quality Review Member Role: Field Advisor Care Team Related Persons Name: MALVIN MASON Address: [id number] [place] [phone] [place] Care Team Personnel Name: ANTOLIN DICKENS Position: P4 Advanced Reconstructive Surgeon Member Role: Pain Management Address: Address: [address] [place] [address]- [place] Name: Yanira Liz Position: P3 Scheduling - Foreign Agent Advanced Member Role: Other Name: DAQUAN MERCADO MD Position: P4 Physician - General Surgery Member Role: Pain Management Address: Address: [address] [facility] [place] [address]- [place] Name: FITZ GA MD Position: P4 Physician - Primary Care Member Role: Primary Care Physician Address: Address: [address] [place], [place] [address]- Name: Britni Otto Position: Quality Review Member Role: Field Advisor Care Team Related Persons Name: MALVIN MASON Address: Home [address] [place], [place] [phone] [place] Care Team Personnel Name: ANTOLIN DICKENS Position: P4 Advanced Reconstructive Surgeon Member Role: Pain Management Address: Address: [address] [facility] [place] [address]- [place] Name: Yanira Liz Position: P3 Scheduling - Foreign Agent Advanced Member Role: Other Name: DAQUAN MERCADO MD Position: P4 Physician - General Surgery Member Role: Pain Management Address: Address: [address] [facility] [place] [address]- [place] Name: FITZ GA MD Position: P4 Physician - Primary Care Member Role: Primary Care Physician Address: Address: [place] [address]- [place] Name: Britni Otto Position: Quality Review Member Role: Field Advisor Care Team Related Persons Name: MALVIN MASON Address: [address] [phone] Care Team Personnel Name: ANTOLIN DICKENS Position: P4 Advanced Reconstructive Surgeon Member Role: Pain Management Address: Address: [address] [facility] [place] [address]- [place] Name: Yanira Liz Position: P3 Scheduling - Foreign Agent Advanced Member Role: Other Name: DAQUAN MERCADO MD Position: P4 Physician - General Surgery Member Role: Pain Management Address: Address: [address] [facility] [place] [address]- [place] Name: FITZ GA MD Position: P4 Physician - Primary Care Member Role: Primary Care Physician Address: Address: [place] [address]- Name: Britni Otto Position: Quality Review Member Role: Field Advisor Care Team Related Persons Name: KWAKU MASON Care Team Personnel Name: ANTOLIN DICKENS Position: Hospitalist Advanced Practice Nurse Member Role: Pain Management Address: Address: [address] [facility] [place] [address]- [place] Name: Yanira Liz LPN Position: FUNERAL SERVICE LICENSEE Member Role: Other Name: DAQUAN MERCADO MD Position: P4 Physician - General Surgery Member Role: Pain Management Address: Address: [address] [facility] [place], [place] [address] Name: FITZ GA MD Position: P4 Physician - Primary Care Member Role: Primary Care Physician Address: Address: [place] [address]- [place] Name: Britni Otto Position: Quality Review Member Role: Field Advisor Care Team Related Persons Name: KWAKU MASON Care Team Personnel Name: ANTOLIN DICKENS Position: Hospitalist Advanced Practice Nurse Member Role: Pain Management Address: Address: [facility] [address] [place] [address] Name: Yanira Liz LPN Position: FUNERAL SERVICE LICENSEE Member Role: Other Name: DAQUAN MERCADO MD Position: P4 Physician - General Surgery Member Role: Pain Management Address: Address: [address] [facility] [address] Name: FITZ GA MD Position: P4 Physician - Primary Care Member Role: Primary Care Physician Address: Address: [address] Name: Britni Otto Position: Quality Review Member Role: Field Advisor Care Team Related Persons Name: KWAKU MASON Care Team Personnel Name: ANTOLIN DICKENS Position: Hospitalist Advanced Practice Nurse Member Role: Pain Management Address: Address: [address] [place] [address] Name: Yanira Liz LPN Position: FUNERAL SERVICE LICENSEE Member Role: Other Name: DAQUAN MERCADO MD Position: P4 Physician - General Surgery Member Role: Pain Management Address: Address: [address] [facility] Pain [facility] [place], [place] [address] Name: FITZ GA MD Position: P4 Physician - Primary Care Member Role: Primary Care Physician Address: Address: [place], [place] [address] Name: Britni Otto Position: Quality Review Member Role: Field Advisor Care Team Related Persons Name: KWAKU MASON Care Team Personnel Name: ANTOLIN DICKENS Position: P4 Advanced Reconstructive Surgeon Member Role: Pain Management Address: Address: [address] [facility] [place], [place] [address] Name: Yanira Liz Position: P3 Scheduling - Foreign Agent Advanced Member Role: Other Name: DAQUAN MERCADO MD Position: P4 Physician - General Surgery Member Role: Pain Management Address: Address: [address] [facility] [place], [place] [address] Name: IFTZ GA MD Position: P4 Physician - Primary Care Member Role: Primary Care Physician Address: Address: [address] Name: Britni Otto Position: Quality Review Member Role: Field Advisor Care Team Related Persons Name: KWAKU MASON Care Team Personnel Name: ANTOLIN DICKENS Position: Hospitalist Advanced Practice Nurse Member Role: Pain Management Address: [address] [place] [address] Telecom: Name: DAQUAN MERCADO MD Position: P4 Physician - General Surgery Member Role: Pain Management Address: [address] [facility] [place], [place] [address] Telecom: Name: Yanira Chen LPN Position: FUNERAL SERVICE LICENSEE Member Role: Other Name: FITZ GA MD Position: P4 Physician - Primary Care Member Role: Primary Care Physician Address: [address] Telecom: Name: Britni Otto Position: Quality Review Member Role: Field Advisor Care Team Related Persons Name: KWAKU MASON Care Team Personnel Name: ANTOLIN DICKENS Position: Hospitalist Advanced Practice Nurse Member Role: Pain Management Address: [address] [place] [address] Telecom: Name: DAQUAN MERCADO MD Member Role: Pain Management Address: [address] [facility] [place] [address]- [place] Telecom: Name: Yanira Chen LPN Position: FUNERAL SERVICE LICENSEE Member Role: Other Name: FITZ GA MD Position: P4 Physician - Primary Care Member Role: Primary Care Physician Address: [address] [place], [place] [address] Telecom: Name: Britni Otto Position: Quality Review Member Role: Field Advisor Care Team Related Persons Name: KWAKU MASON Care Team Personnel Name: ANTOLIN DICKENS Position: Hospitalist Advanced Practice Nurse Member Role: Pain Management Address: [address] [place] [phone] [place] Telecom: Name: DAQUAN MERCADO MD Member Role: Pain Management Address: [address] [facility] [place] [address]- [place] Telecom: Name: Yanira Chen LPN Position: FUNERAL SERVICE LICENSEE Member Role: Other Name: FITZ GA MD Position: P4 Physician - Primary Care Member Role: Primary Care Physician Address: [address] Telecom: Name: Britni Otto Position: Quality Review Member Role: Field Advisor Care Team Related Persons Name: KWAKU MASON Care Team Personnel Name: ANTOLIN DICKENS Position: Hospitalist Advanced Practice Nurse Member Role: Pain Management Address: [address] [place] [address]- [place] Telecom: Name: DAQUAN MERCADO MD Member Role: Pain Management Address: [address] [facility] [place] [address]- [place] Telecom: Name: Yanira Chen LPN Position: FUNERAL SERVICE LICENSEE Member Role: Other Name: FITZ GA MD Position: P4 Physician - Primary Care Member Role: Primary Care Physician Address: [address] Telecom: Name: Britni Otto Position: Quality Review Member Role: Field Advisor Care Team Related Persons Name: KWAKU MASON Care Team Personnel Name: ANTOLIN DICKENS Position: Hospitalist Advanced Practice Nurse Member Role: Pain Management Address: [address] Telecom: Name: DAQUAN MERCADO MD Member Role: Pain Management Address: [address] [facility] [place] [address]- [place] Telecom: Name: Yaniar Chen LPN Position: FUNERAL SERVICE LICENSEE Member Role: Other Name: FITZ GA MD Position: P4 Physician - Primary Care Member Role: Primary Care Physician Address: [address] Telecom: Name: Britni Otto Position: Quality Review Member Role: Field Advisor Care Team Related Persons Name: SUZIEJULIO KWAKU Care Team Personnel Name: ANTOLIN DICKENS Position: Hospitalist Advanced Practice Nurse Member Role: Pain Management Address: [address] Telecom: Name: DAQUAN MERCADO MD Member Role: Pain Management Address: [address] [facility] [place] [address]- [place] Telecom: Name: Yanira Chen LPN Position: FUNERAL SERVICE LICENSEE Member Role: Other Name: FITZ GA MD Position: P4 Physician - Primary Care Member Role: Primary Care Physician Address: [address] Telecom: Name: Britni Otto Position: Quality Review Member Role: Field Advisor Care Team Related Persons Name: KWAKU MASON Care Team Personnel Name: ANTOLIN DICKENS Position: Hospitalist Advanced Practice Nurse Member Role: Pain Management Address: [address] Telecom: Name: DAQUAN MERCADO MD Member Role: Pain Management Address: [address] [facility] [place] [address] [place] Telecom: Name: Yanira Chen LPN Position: FUNERAL SERVICE LICENSEE Member Role: Other Name: FITZ GA MD Position: P4 Physician - Primary Care Member Role: Primary Care Physician Address: [address] Telecom: Name: Britni Otto Position: Quality Review Member Role: Field Advisor Care Team Related Persons Name: KWAKU MASON Care Team Personnel Name: ANTOLIN DICKENS Position: Hospitalist Advanced Practice Nurse Member Role: Pain Management Address: [address] [place] [address] Telecom: Name: DAQUAN MERCADO MD Member Role: Pain Management Address: [address] [facility] Pain [place] [address] Telecom: Name: Yanira Chen LPN Position: FUNERAL SERVICE LICENSEE Member Role: Other Name: FITZ GA MD Position: P4 Physician - Primary Care Member Role: Primary Care Physician Address: [address] Telecom: Name: Britni Otto Position: Quality Review Member Role: Field Advisor Care Team Related Persons Name: KWAKU MASON Care Team Personnel Name: ANTOLIN DICKENS Position: Hospitalist Advanced Practice Nurse Member Role: Pain Management Address: [address] [place] [address]- [place] Telecom: Name: DAQUAN MERCADO MD Member Role: Pain Management Address: [address] [facility] [place] [address]- [place] Telecom: Name: Yanira Chen LPN Position: FUNERAL SERVICE LICENSEE Member Role: Other Name: FITZ GA MD Position: P4 Physician - Primary Care Member Role: Primary Care Physician Address: [address] Telecom: Name: Britni Otto Position: Quality Review Member Role: Field Advisor Care Team Related Persons Name: KWAKU MASON Care Team Personnel Name: ANTOLIN DICKENS Position: Hospitalist Advanced Practice Nurse Member Role: Pain Management Address: [address] Telecom: Name: DAQUAN MERCADO MD Member Role: Pain Management Address: [address] [facility] Pain [place] [address] Telecom: Name: Yanira Chen LPN Position: FUNERAL SERVICE LICENSEE Member Role: Other Name: FITZ GA MD Position: P4 Physician - Primary Care Member Role: Primary Care Physician Address: [address] Telecom: Name: Britni Otto Position: Quality Review Member Role: Field Advisor Care Team Related Persons Name: KWAKU MASON Care Team Personnel Name: ANTOLIN DICKENS Position: Hospitalist Advanced Practice Nurse Member Role: Pain Management Address: [address] Telecom: Name: DAQUAN MERCADO MD Member Role: Pain Management Address: [address] [facility] [place] [address]- [place] Telecom: Name: Yanira Chen FUNERAL SERVICE LICENSEE Position: FUNERAL SERVICE LICENSEE Member Role: Other Name: FITZ GA MD Position: P4 Physician - Primary Care Member Role: Primary Care Physician Address: [address] [place] [id number] Telecom: Name: Britni Otto Position: Quality Review Member Role: Field Advisor Care Team Related Persons Name: ISABELLA KWAKU Care Team (unrecognized sect ion and content) Care Team Personnel Name: ANTOLIN DICKENS Position: P4 Advanced Practice Nurse Med Service: Active Provider Member Role: Pain Management Address: Address: [address] [facility] [place], [place] [address] Name: Yanira Liz Position: P3 Scheduling - Foreign Agent Advanced Member Role: Other Name: DAQUAN MERCADO MD Position: P4 Physician - General Surgery Med Service: Active Provider Member Role: Pain Management Address: Address: [address] [facility] [place], [place] [address] Name: FITZ GA MD Position: P4 Physician - Primary Care Med Service: Active Provider Member Role: Primary Care Physician Address: Address: [address] [place] [address] Name: Britni Otto Position: Quality Review Member Role: Field Advisor Name: BUNNY Chilel Position: AO RN Member Role: Field Advisor Care Team Related Persons Name: ISABELLA MALVIN Address: [address] [phone] Care Team Personnel Name: ANTOLIN DICKENS Position: P4 Advanced Practice Nurse Med Service: Active Provider Member Role: Pain Management Address: Address: [address] [facility] [place] [address]- Name: Yanira Liz Position: P3 Scheduling - Foreign Agent Advanced Member Role: Other Name: DAQUAN MERCADO MD Position: P4 Physician - General Surgery Med Service: Active Provider Member Role: Pain Management Address: Address: [address] [facility] [place] [address]- Name: FITZ GA MD Position: P4 Physician - Primary Care Med Service: Active Provider Member Role: Primary Care Physician Address: Address: [address] [place] [address] Name: Britni Otto Position: Quality Review Member Role: Field Advisor Name: BUNNY Chilel Position: P3 registry rn Member Role: Field Advisor Care Team Related Persons Name: MALVIN MASON Address: Home [address] [place] [phone] [place] Care Team Personnel Name: ANTOLIN DICKENS APRN-MOTOR BUILDER WINDER Position: P4 Advanced Practice Nurse Address: Address: [address] [facility] [place], [place] [address] Name: Yanira Liz Position: P3 Scheduling - Foreign Agent Advanced Member Role: Other Name: DAQUAN MERCADO MD Position: P4 Physician - General Surgery Address: Address: [address] [facility] [place], [place] [address] Name: FITZ GA MD Position: P4 Physician - Primary Care Member Role: Primary Care Physician Address: Address: [address] [place] [address] Name: Britni OttoNemours Foundation Position: Quality Review Member Role: Field Advisor Name: BUNNY Chilel Position: AO RN Member Role: Field Advisor Care Team Related Persons Name: ISABELLAMALVIN Address: Home [address] [place] [phone] Care Team Personnel Name: ANTOLIN DICKENSMOTOR BUILDER WINDER Position: P4 Advanced Practice Nurse Address: Address: [address] [facility] [place], [place] [address] Name: Yanira Liz Position: P3 Scheduling - Foreign Agent Advanced Member Role: Other Name: DAQUAN MERCADO MD Position: P4 Physician - General Surgery Address: Address: [address] [facility] [place], [place] [address] Name: FITZ GA MD Position: P4 Physician - Primary Care Member Role: Primary Care Physician Address: Address: [address] [facility] [address] [place] [id number] Name: Britni Otto Position: Quality Review Member Role: Field Advisor Name: BUNNY Chilel Position: AO RN Member Role: Field Advisor Name: RODRI SY DO Position: ED Physician Member Role: Attending Physician Address: Address: [address] [place], [place] [address] Care Team Related Persons Name: MALVIN MASON Address: Home [address] [place], [place] [phone] [place] Care Team Personnel Name: ANTOLIN DICKENS APRN-MOTOR BUILDER WINDER Position: P4 Advanced Practice Nurse Address: Address: [address] [facility] [address] Name: Yanira Liz Position: P3 Scheduling - Foreign Agent Advanced Member Role: Other Name: DAQUAN MERCADO MD Position: P4 Physician - General Surgery Address: Address: [address] [facility] [place] [address] Name: FITZ GA MD Position: P4 Physician - Primary Care Member Role: Primary Care Physician Address: Address: [address] [place] [address] Name: Clarita Britnimarcin Ibrahim Position: Quality Review Member Role: Field Advisor Name: BUNNY Chilel Position: AO RN Member Role: Field Advisor Name: HARSHAD TEIXEIRA MD Position: ED Physician Member Role: ED Physician Address: Address: [address] [address] [place] [address]- Name: BUNNY Turner Position: AO RN Member Role: ED RN Care Team Related Persons Name: MALVIN MASON Address: [id number] [place] [phone] [place] Care Team Personnel Name: ANTOLIN DICKENS APRN-SHANTELL Position: P4 Advanced Practice Nurse Med Service: Active Provider Member Role: Pain Management Address: Address: [address] [facility] [place], [place] [address] [place] [address] Name: Yanira Liz Position: P3 Scheduling - Foreign Agent Advanced Member Role: Other Name: DAQUAN MERCADO MD Position: P4 Physician - General Surgery Med Service: Active Provider Member Role: Pain Management Address: Address: [address] [facility] [place] [address]- Name: FITZ GA MD Position: P4 Physician - Primary Care Med Service: Active Provider Member Role: Primary Care Physician Address: Address: [address] [place] [id number] Name: Britni Otot Position: Quality Review Member Role: Field Advisor Care Team Related Persons Name: MALVIN MASON Address: Home [address] [place], [place] [phone] [place] Care Team Personnel Name: ANTOLIN DICKENS Position: P4 Advanced Practice Nurse Member Role: Pain Management Address: Address: [address] [facility] [place], [place] [address] Name: Yanira Liz Position: P3 Scheduling - Foreign Agent Advanced Member Role: Other Name: DAQUAN MERCADO MD Position: P4 Physician - General Surgery Member Role: Pain Management Address: Address: [address] [facility] [place] [address]- Name: FITZ GA MD Position: P4 Physician - Primary Care Member Role: Primary Care Physician Address: Address: [address] [facility] [address] [place] [address] Name: Britni Otto Position: Quality Review Member Role: Field Advisor Care Team Related Persons Name: MALVIN MASON Address: Home [address] [place], [place] [phone] Care Team Personnel Name: ANTOLIN DICKENSMOTOR BUILDER WINDER Position: P4 Advanced Practice Nurse Member Role: Pain Management Address: Address: [address] [facility] [place] [address]- Name: Yanira Liz Position: P3 Scheduling - Foreign Agent Advanced Member Role: Other Name: DAQUAN MERCADO MD Position: P4 Physician - General Surgery Member Role: Pain Management Address: Address: [address] [address] [place] [address]- [place] Name: FITZ GA MD Position: P4 Physician - Primary Care Member Role: Primary Care Physician Address: Address: [facility] [place] [address]- Name: Britni Otto Position: Quality Review Member Role: Field Advisor Care Team Related Persons Name: MALVIN MASON Address: Home [address] [place], [place] [phone] Care Team Personnel Name: ANTOLIN DICKENS Position: P4 Advanced Practice Nurse Member Role: Pain Management Address: Address: [address] [facility] [place] [address]- Name: Yanira Liz Position: P3 Scheduling - Foreign Agent Advanced Member Role: Other Name: DAQUAN MERCADO MD Position: P4 Physician - General Surgery Member Role: Pain Management Address: Address: [address] [facility] [place] [address]- Name: FITZ GA MD Position: P4 Physician - Primary Care Member Role: Primary Care Physician Address: Address: [facility] [place] [address]- Name: Britni Otto Position: Quality Review Member Role: Field Advisor Care Team Related Persons Name: MALVIN MASON Address: Home [id number] [place] [phone] Care Team Personnel Name: ANTOLIN DICKENS Position: P4 Advanced Practice Nurse Member Role: Pain Management Address: Address: [address] [facility] [place] [address]- [place] Name: Yanira Liz Position: P3 Scheduling - Foreign Agent Advanced Member Role: Other Name: DAQUAN MERCADO MD Position: P4 Physician - General Surgery Member Role: Pain Management Address: Address: [address] [facility] [place] [address]- [place] Name: FITZ GA MD Position: P4 Physician - Primary Care Member Role: Primary Care Physician Address: Address: [address] [place] [address] [place] Name: SarayjulioBritni Position: Quality Review Member Role: Field Advisor Care Team Related Persons Name: MALVIN MASON Address: Home [address] [place] [address] [place], [place] [phone] FOR RECORDS PERTAINING TO PATIENTS WHO ARE [...] BE BASED ON THE PRIMARY CLINICAL RECORDS. [facility] [employer] provides no warranty or guarantee of the accuracy or completeness of information in this document.
[2025-09-11 09:13] LABS: Uric Acid 6.3 mg/dL (2.6-6.0)
== END ==
LOC: OLS.SWAL 05:00
PROVIDERS: PCP Internal Medicine; Visit Provider Internal Medicine
DX: M10.9 Gout, unspecified (principal)
CPT/HCPCS: 36415; 84550

== ENCOUNTER → 2025-09-15 | Outpatient (REF) | payer MEDICARE, SELFPAY ==
--- OUTSIDE RECORDS SUMMARY | 2025-09-15 03:22 | XMS RPT_ITS | CCD ---
Author Organization [facility] Care Team Providers Care Plate Preparer Name Role Phone FITZ GA MD Primary [...] Translations: [codeine] Drug Allergy N/V [facility] (20 sources) Penicillin; Translations: [penicillin] Drug Allergy RASH [facility] (20 sources) predniSONE; Translations: [prednisone] Drug Allergy Nausea (finding) [facility] (20 sources) Tetracycline; Translations: [tetracycline] Drug Allergy Unknown [facility] (20 sources) egg albumin (whites) Allergy to substance Unknown [facility] Medications Current Medications Medication [...] BID, # 180 tab(s), 3 Refill(s), Pharmacy: [facility], 157.5, cm, 03/20/25 10:23:00 EDT, Height, 68.4, kg, 03/20/25 10:23:00 EDT, Dosing Weight Start Date: 04/29/25 Stop Date: 04/24/26 Status: Ordered Medication Dispense Status: Completed Quantity: 180.0 Unit: tab(s) Total Allowed Fills: 4 Fills Dispensed: 0 Start: 10-13-2022 End: 04-07-2025 Eliquis 5 mg oral tablet Dos e : 5 mg = 1 tab(s), Oral, BID, # 180 tab(s), 3 Refill(s), Pharmacy: [facility], 157, cm, 04/12/24 11:01:00 [...] qDay, # 90 tab(s), 3 Refill(s), Pharmacy: [facility], 157, cm, 03/06/25 13:18:00 EDT, Height, kg, 03/06/25 13:18:00 EDT, Dosing Weight Start Date: 03/18/25 Stop Date: 03/13/26 Status: Ordered Medication Dispense Status: Completed Quantity: 90.0 Unit: tab(s) Total Allowed Fills: 4 Fills Dispensed: 0 Start: 07-14-2023 End: 01-06-2025 atorvastatin 10 mg oral tabl et Dose : 10 mg = 1 tab(s), Oral, qDay, # 90 tab(s), 3 Refill(s), Pharmacy: [facility], 160, cm, 01/12/24 10:53:00 EDT, Height, kg, 01/12/24 10:53:00 EDT, Dosing Weight Start Date: 01/12/24 Stop Date: 01/06/25 Status: Ordered Quantity: 90.0 Unit: tab(s) Repeat number: 4 Start: 09-28-2021 End: 07-02-2023 atorvastatin 10 mg oral tabl et Dose : 10 mg = 1 tab(s), Oral, qDay, # 90 tab(s), 3 Refill(s), [id number], 157, cm, 07/07/22 9:44:00 EDT, Height, kg, 07/07/22 9:44:00 EDT, Dosing Weight Start Date: 07/07/22 Stop Date: 07/02/23 Status: Ordered Start: 08-30-2021 atorvastatin 1 0 mg oral tablet Dose : 10 mg = 1 tab(s), Oral, qDay, # 30 tab(s), 0 Refill(s), [facility] [address] 162, cm, 08/27/21 9:15:00 EST, Height, kg, 08/27/21 9:15:00 EST, Dosing Weight Start Date: 08/30/21 Status: Ordered Start: 08-04-2020 atorvastatin 1 0 mg oral tablet Dose : 10 mg = 1 tab(s), Oral, qDay, # 90 tab(s), 3 Refill(s), [facility] [address] 158, cm, 08/04/20 10:48:00 EDT, Height, kg, 08/04/20 10:48:00 EDT, Dosing Weight Start Date: 08/04/20 Status: Ordered cephalexin 500 mg oral capsule (1 source) Cephalosporin Antibacterial Start: 11-24-2022 End: 12-01-2022 cephalexin 500 mg oral capsule Dose : 500 mg = 1 cap(s), Oral, TID, X 7 day(s), # 21 cap(s), 0 Refill(s), 12/01/22 11:50:00 EST, [facility]: [facility][id number], Contusion of face Knee contusion, 160, cm, 11/24/22 11:24:00 EST, Height, 76.5 Start Date: 11/24/22 Stop Date: 12/01/22 Status: Ordered cholestyramine resin 4000 mg powder for oral suspension (2 sources) Bile Acid Sequestrant Start: 11-30-2021 cholesty ramine 4 g/9 g oral powder for reconstitution 1 packet(s), Oral, BID, # 60 packet(s), 11 Refill(s), [facility] [address] Sinusitis Diarrhea, 159, cm, 11/30/21 11:16:00 EST, Height, kg, 11/30/21 11:16:00 EST, Dosing Weight Start Date: 11/30/21 Status: Ordered citalopram 40 mg oral tablet (20 sources) Serotonin Reuptake Inhibitor Start: 04-12-2024 citalopram 40 mg ora l tablet Dose : 40 mg = 1 tab(s), Oral, qDay, # 90 tab(s), 3 Refill(s), Pharmacy: [facility], 157, cm, 04/12/24 11:01:00 EDT, Height, kg, 04/12/24 11:01:00 EDT, Dosing Weight Start Date: 04/12/24 Status: Ordered Start: 07-14-2023 citalopram 40 mg oral tablet Dose : 40 mg = 1 tab(s), Oral, qDay, # 90 tab(s), 3 Refill(s), [facility]: [facility][id number], 157, cm, 07/14/23 10:36:00 EDT, Height, kg, 07/14/23 10:36:00 EDT, Dosing Weight Start Date: 07/14/23 Status: Ordered Start: 04-14-2023 citalopram 20 mg oral tablet Dose : 20 mg = 1 tab(s), Oral, qDay, # 90 tab(s), 3 Refill(s), [facility]: [facility][id number], 160, cm, 04/14/23 10:24:00 EDT, Height, kg, 04/14/23 10:24:00 EDT, Dosing Weight Start Date: 04/14/23 Status: Ordered Start: 07-07-2022 citalopram 20 mg oral tablet Dose : 20 mg = 1 tab(s), Oral, qDay, # 90 tab(s), 3 Refill(s), [facility]: [facility][id number], 157, cm, 07/07/22 9:44:00 EDT, Height, kg, [...] qDay, # 30 tab(s), 11 Refill(s), Pharmacy: [facility], 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 (CKD), 157, cm, 04/12/24 11:01:00 EDT, Height, kg, 04/12/24 11:01:00 EDT, Dosing Weight Start Date: 07/09/24 Status: Ordered Start: 07-14-2023 Farxiga 10 mg oral tablet Dose : 10 mg = 1 tab(s), Oral, qDay, # 30 tab(s), 11 Refill(s), [facility]: [facility] #[id number], Type 2 diabetes mellitus with chronic kidney [...] qDay, # 90 tab(s), 3 Refill(s), Pharmacy: [facility], Diabetes Diastolic dysfunction, 157, cm, [...] qDay, # 90 tab(s), 3 Refill(s), Pharmacy: [facility], Diabetes Diastolic dysfunction, 157, [...] 0 Refill(s), 01/19/24 11:45:00 AM EDT, Pharmacy: [facility], Well adult exam Acquired hypothyroidism, 160, cm, 01/12/24 10:53:00 EDT, Height, 71.7, kg, 01/12/24 10:53:00 EDT, Dosing Weight Start Date: 01/12/24 Stop Date: 01/19/24 Status: Ordered furosemide 20 mg oral tablet (20 sources) Loop Diuretic Start: 12-05-2024 furosemide 20 mg oral tablet Dose : 20 mg = 1 tab(s), Oral, qDay, # 90 tab(s), 3 Refill(s), Pharmacy: [facility], 157, cm, 12/05/24 14:45:00 EST, Height, kg, 12/05/24 14:45:00 EST, Dosing Weight Start Date: 12/05/24 Status: Ordered Medication Dispense Status: Completed Quantity: 90.0 Unit: tab(s) Total Allowed Fills: 4 Fills Dispensed: 0 Start: 04-12-2024 End: 07-11-2024 furosemide 40 mg oral tablet Dose : 20 mg = 0.5 tab(s), Oral, Daily, # 15 tab(s), 2 Refill(s), Pharmacy: [facility], Hyperlipidemia Acquired hypothyroidism, 157, cm, 04/12/24 11:01:00 EDT, Height, kg, 04/12/24 11:01:00 EDT, Dosing Weight Start Date: 04/12/24 Stop Date: 07/11/24 Status: Ordered Start: 03-03-2023 Lasix 20 mg or al tablet Dose : 20 mg = 1 tab(s), Oral, Daily, # 90 tab(s), 1 Refill(s), [facility]: [id number], 160, cm, 02/02/23 11:34:00 EDT, Height, kg, 02/02/23 11:34:00 EDT, Dosing Weight Start Date: 03/03/23 Status: Ordered Start: 09-28-2021 Lasix 20 mg or al tablet Dose : 20 mg = 1 tab(s), Oral, Daily, # 90 tab(s), 0 Refill(s), [facility]: [facility] #[id number], 160, cm, 11/24/22 11:24:00 EST, Height, kg, [...] TID, # 270 cap(s), 3 Refill(s), Pharmacy: [facility], Lumbar spinal stenosis, 157, cm, 04/12/24 11:01:00 EDT, Height, 72.3, kg, 04/12/24 11:01:00 EDT, Dosing Weight Start Date: 04/12/24 Stop Date: 04/07/25 Status: Ordered Start: 01-12-2024 End: 07-10-2024 gabapentin 600 mg oral table t Dose : 600 mg = 1 tab(s), Oral, TID, # 270 tab(s), 1 Refill(s), Pharmacy: [facility], Neuropathy, 160, cm, 01/12/24 10:53:00 EDT, Height, 71.7, kg, 01/12/24 10:53:00 EDT, Dosing Weight Start Date: 01/12/24 Stop Date: 07/10/24 Status: Ordered Start: 02-01-2023 End: 01-10-2024 gabapentin 600 mg oral table t Dose : 600 mg = 1 tab(s), Oral, TID, # 270 tab(s), 1 Refill(s), [facility]: [facility] #[id number], Neuropathy, 157, cm, 07/14/23 10:36:00 EDT, Height, 75.6, kg, 07/14/23 10:36:00 EDT, Dosing Weight Start Date: 07/14/23 Stop Date: 01/10/24 Status: Ordered Start: 06-03-2022 End: 01-29-2023 gabapentin 600 mg oral table t Dose : 600 mg = 1 tab(s), Oral, TID, # 270 tab(s), 1 Refill(s), [facility]: [facility] #[id number], Neuropathy, 160, cm, 08/02/22 10:34:00 EDT, Height, [...] bedtime, # 120 tab(s), 2 Refill(s), Pharmacy: [address], Lumbar spinal stenosis, 162.6, cm, 03/03/22 [...] bedtime, # 120 tab(s), 2 Refill(s), Pharmacy: [address], Lumbar spinal stenosis, 157.5, cm, 10/26/21 [...] qDay, # 30 tab(s), 2 Refill(s), Pharmacy: [facility], 157, cm, 12/05/24 14:45:00 EST, Height, kg, 01/02/25 14:37:00 EDT, Dosing Weight Start Date: 01/09/25 Status: Ordered Quantity: 30.0 Unit: tab(s) Repeat number: 3 Start: 06-14-2023 glimepiride 1 mg oral tablet Dose : 1 mg = 1 tab(s), Oral, qDay, # 90 tab(s), 3 Refill(s), [facility]: [facility] #[id number], 157, cm, 06/07/23 14:25:00 EDT, Height, kg, 06/07/23 14:25:00 EDT, Dosing Weight Start Date: 06/14/23 Status: Ordered Start: 03-31-2022 glimepiride 1 mg oral tablet Dose : 1 mg = 1 tab(s), Oral, qDay, # 90 tab(s), 3 Refill(s), [facility]: [facility] 158, cm, 03/31/22 11:03:00 EDT, Height Start Date: 03/31/22 Status: Ordered Start: 02-17-2022 glimepiride 2 mg oral tablet Dose : 2 mg = 1 tab(s), Oral, qDay, # 90 tab(s), 3 Refill(s), [facility]acy: [facility] 158.5, cm, 02/17/22 8:57:00 [...] qDayAC, # 90 tab(s), 3 Refill(s), Pharmacy: [facility], 157, cm, 03/06/25 13:18:00 EDT, Height, kg, 03/06/25 13:18:00 EDT, Dosing Weight Start Date: 03/06/25 Status: Ordered Medication Dispense Status: Completed Quantity: 90.0 Unit: tab(s) Total Allowed Fills: 4 Fills Dispensed: 0 Start: 10-13-2023 levothyroxine 25 mcg (0.025 mg) oral tablet Dose : 25 mcg = 1 tab(s), Oral, qDayAC, # 90 tab(s), 3 Refill(s), Pharmacy: [facility], 160, cm, 10/13/23 10:47:00 EST, Height, kg, 10/13/23 10:47:00 EST, Dosing Weight Start Date: 10/13/23 Status: Ordered Start: 07-14-2023 levothyroxine 50 mcg (0.05 mg) oral tablet Dose : 50 mcg = 1 tab(s), Oral, qDay, # 90 tab(s), 3 Refill(s), [facility]: [facility] #[id number], 157, cm, 07/14/23 10:36:00 EDT, Height, kg, 07/14/23 10:36:00 EDT, Dosing Weight Start Date: 07/14/23 Status: Ordered Start: 07-07-2023 levothyroxine 50 mcg (0.05 mg) oral tablet Dose : 50 mcg = 1 tab(s), Oral, qDay, # 90 tab(s), 3 Refill(s), [facility][id number], 160, cm, 04/14/23 10:24:00 EDT, Height, kg, 04/14/23 10:24:00 EDT, Dosing Weight Start Date: 04/14/23 Status: Ordered Start: 07-07-2022 levothyroxine 50 mcg (0.05 mg) oral tablet Dose : 50 mcg = 1 tab(s), Oral, qDay, # 90 tab(s), 3 Refill(s), [facility] #[id number], 157, cm, 07/07/22 9:44:00 EDT, Height, kg, [...] qHS, # 30 tab(s), 2 Refill(s), Pharmacy: [facility], [facility], 157.5, cm, 05/09/25 10:33:00 EDT, Height, 67, [...] 0 Refill(s), 03/02/25 3:21:00 PM EDT, Pharmacy: [facility], Major depressive disorder, 157, cm, [...] BID, # 60 tab(s), 8 Refill(s), Pharmacy: [facility], 157.5, cm, 05/09/25 10:33:00 EDT, [...] release), # 180 tab(s), 1 Refill(s), Pharmacy: [facility], 157.5, cm, 03/20/25 10:23:00 EDT, [...] qDay, # 90 tab(s), 3 Refill(s), Pharmacy: [facility], 157, cm, 12/05/24 14:45:00 EST, [...] 90 tab(s), 3 Refill(s), [facility]: [facility] #[id number], 157, cm, 07/07/22 9:44:00 EDT, Height, kg, [...] qDay, # 30 tab(s), 11 Refill(s), Pharmacy: [facility], 157.5, cm, 06/17/25 11:12:00 EDT, Height, [...] 90 tab(s), 1 Refill(s), [facility]: [facility] #[id number], 160, cm, 02/02/23 11:34:00 EDT, Height, kg, 02/02/23 11:34:00 EDT, Dosing Weight Start Date: 03/03/23 Status: Ordered Start: 09-28-2021 potassium chlo ride 8 mEq (600 mg) oral tablet, extended release Dose : 8 mEq = 1 tab(s), Oral, qDay, take with food., # 90 tab(s), 0 Refill(s), [facility]: [facility] #[id number], 160, cm, 11/24/22 11:24:00 EST, Height, kg, [...] 180 tab(s), 3 Refill(s), [facility]: [facility] #[id number], 160, cm, 04/14/23 10:24:00 EDT, Height, kg, 04/14/23 10:24:00 EDT, Dosing Weight Start Date: 04/14/23 Status: Ordered Start: 07-07-2022 sotalol 80 mg oral tablet Dose : 80 mg = 1 tab(s), Oral, BID, # 180 tab(s), 3 Refill(s), [facility]: [facility] #[id number], 157, cm, 07/07/22 9:44:00 EDT, Height, kg, [...] day(s), # 28 tab(s), 0 Refill(s), Pharmacy: [facility], 157, cm, 02/20/25 9:22:00 EDT, [...] qHS, # 30 tab(s), 1 Refill(s), Pharmacy: [facility], 157.5, cm, 03/20/25 10:23:00 EDT, Height, kg, 03/20/25 10:23:00 EDT, Dosing Weight Start Date: 04/22/25 Stop Date: 06/21/25 Status: Ordered Medication Dispense Status: Completed Quantity: 30.0 Unit: tab(s) Total Allowed Fills: 2 Fills Dispensed: 0 Start: 02-20-2025 End: 04-21-2025 cyclobenzaprine 10 mg oral t ablet Dose : 10 mg = 1 tab(s), Oral, qHS, # 30 tab(s), 1 Refill(s), Pharmacy: [facility], 157, cm, 02/20/25 9:22:00 EDT, Height, kg, 02/20/25 9:22:00 EDT, Dosing Weight Start Date: 02/20/25 Stop Date: 04/21/25 Status: Ordered Quantity: 30.0 Unit: tab(s) Repeat number: 2 Start: 12-05-2024 End: 06-03-2025 cyclobenzaprine 5 mg oral ta blet Dose : 5 mg = 1 tab(s), Oral, qHS, # 90 tab(s), 1 Refill(s), Pharmacy: [facility], Diabetes Diastolic dysfunction, 157, cm, [...] spasm, # 90 tab(s), 1 Refill(s), Pharmacy: [facility], 157, cm, 04/12/24 11:01:00 EDT, Height, kg, 04/12/24 11:01:00 EDT, Dosing Weight Start Date: 04/12/24 Stop Date: 06/11/24 Status: Ordered Start: 01-02-2024 End: 03-12-2024 cyclobenzaprine 10 mg oral t ablet Dose : 10 mg = 1 tab(s), Oral, TID, PRN for muscle spasm, # 90 tab(s), 1 Refill(s), Pharmacy: [facility], 160, cm, 01/12/24 10:53:00 EDT, Height, kg, 01/12/24 10:53:00 EDT, Dosing Weight Start Date: 01/12/24 Stop Date: 03/12/24 Status: Ordered Start: 07-14-2023 End: 09-12-2023 cyclobenzaprine 10 mg oral t ablet Dose : 10 mg = 1 tab(s), Oral, TID, PRN for muscle spasm, # 90 tab(s), 1 Refill(s), [facility]acy: [facility] #[id number], 157, cm, 07/14/23 10:36:00 EDT, Height, kg, 07/14/23 10:36:00 EDT, Dosing Weight Start Date: 07/14/23 Stop Date: 09/12/23 Status: Ordered Start: 04-14-2023 End: 06-13-2023 cyclobenzaprine 10 mg oral t ablet Dose : 10 mg = 1 tab(s), Oral, TID, PRN for muscle spasm, # 90 tab(s), 1 Refill(s), Pharmacy: [facility] #[id number], 160, cm, 04/14/23 10:24:00 EDT, Height, kg, 04/14/23 10:24:00 EDT, Dosing Weight Start Date: 04/14/23 Stop Date: 06/13/23 Status: Ordered Start: 10-13-2022 End: 12-12-2022 cyclobenzaprine 10 mg oral t ablet Dose : 10 mg = 1 tab(s), Oral, TID, PRN for muscle spasm, # 90 tab(s), 1 Refill(s), [facility]acy: [facility] #[id number], 160, cm, 10/13/22 10:58:00 EST, Height, kg, 10/13/22 10:58:00 EST, Dosing Weight Start Date: 10/13/22 Stop Date: 12/12/22 Status: Ordered Start: 07-07-2022 End: 09-05-2022 cyclobenzaprine 10 mg oral t ablet Dose : 10 mg = 1 tab(s), Oral, TID, PRN for muscle spasm, # 90 tab(s), 1 Refill(s), [facility]acy: [facility] #[id number], 157, cm, 07/07/22 9:44:00 EDT, Height, kg, 07/07/22 9:44:00 EDT, Dosing Weight Start Date: 07/07/22 Stop Date: 09/05/22 Status: Ordered Start: 03-31-2022 End: 05-30-2022 cyclobenzaprine 10 mg oral t ablet Dose : 10 mg = 1 tab(s), Oral, TID, PRN for muscle spasm, # 90 tab(s), 1 Refill(s), [facility]acy: [facility] [address] 158, cm, 03/31/22 11:03:00 EDT, Height Start Date: 03/31/22 Stop Date: 05/30/22 Status: Ordered Start: 02-17-2022 End: 04-18-2022 cyclobenzaprine 5 mg oral ta blet Dose : 5 mg = 1 tab(s), Oral, TID, # 90 tab(s), 1 Refill(s), Pharmacy: [facility] Chronic diarrhea Low back pain, 158.5, cm, 02/17/22 8:57:00 EDT, Height Start Date: 02/17/22 Stop Date: 04/18/22 Status: Ordered Start: 08-10-2021 End: 11-26-2021 cyclobenzaprine 10 mg oral t ablet Dose : 10 mg = 1 tab(s), Oral, qHS, PRN Muscle pain, # 30 tab(s), 1 Refill(s), 11/26/21 15:30:00 EST, Pharmacy: [facility] 162.6, cm, 07/14/21 9:02:00 [...] width (RBC) [Ratio] 14.6 % Normal 11.6-14.6 [facility] Comment on above: Order Comment: 162 Performed By: #### L 100.0500 #### [facility] [address] [place], [address] Hematocrit (Bld) [Volume fraction] 37.7 % Normal 37-47 [facility] Comment on above: Order Comment: 162 Performed By: #### L 100.0500 #### [facility] [address] [place], [address] Hemoglobin (Bld) [Mass/Vol] 11.9 g/dL Low 12.0-15.0 [facility] Comment on above: Order Comment: 162 Performed By: #### L 100.0500 #### [facility] [address] [place], [address] MCH (RBC) [Entitic mass] 31.5 pg Normal 27.0-32.0 [facility] Comment on above: Order Comment: 162 Performed By: #### L 100.0500 #### [facility] [address] [place], [address] MCHC (RBC) [Mass/Vol] 31.6 g/dL Low 32-36 [facility] Comment on above: Order Comment: 162 Performed By: #### L 100.0500 #### [facility] [address] [place], [address] MCV (RBC) [Entitic vol] 99.7 fL High 81-99 [facility] Comment on above: Order Comment: 162 Performed By: #### L 100.0500 #### [facility] [address] [place], [address] Platelet mean volume (Bld) [Entitic vol] 9.4 fL Normal 6.2-12.0 [facility] Comment on above: Order Comment: 162 Performed By: #### L 100.0500 #### [facility] [address] [place], [address] Platelets (Bld) [#/Vol] 192 10*3/uL Normal 150-450 [facility] Comment on above: Order Comment: 162 Performed By: #### L 100.0500 #### [facility] [address] [place], [address] RBC (Bld) [#/Vol] 3.78 10*6/uL Low 4.2-5.4 [facility] Comment on above: Order Comment: 162 Performed By: #### L 100.0500 #### [facility] [address] [place], [address] RDW SD 53.5 fl High 35.1-43.9 [facility] Comment on above: Order Comment: 162 Performed By: #### L 100.0500 #### [facility] [address] [place], [address] WBC (Bld) [#/Vol] 7.2 10*3/uL Normal 4.4-11.0 [facility] Comment on above: Order Comment: 162 Performed By: #### L 100.0500 #### [facility] [address] [place], [address] CRPon 08-12-2025 C-REACTIVE PROT 3.90 mg/L High 0.0-3.0 [facility] Comment on above: Order Comment: DENG Mcelroy ADD CRP TO 08-11-25 BLOOD WORK Performed By: #### L 500.2500, L501.6710, L100.0100, L501.1400 #### [facility] [address] [place], [address] Basic Metabolic Profile (BMP )on 08-11-2025 BUN/CRE 22.6 RATIO High 10-20 [facility] Comment on above: Performed By: #### L 500.2500, L501.6710, L100.0100, L501.1400 #### [facility] [address] [place], [address] Calcium [Mass/Vol] 9.3 mg/dL Normal 7.6-11.0 [facility] Comment on above: Performed By: #### L 500.2500, L501.6710, L100.0100, L501.1400 #### [facility] [address] [place], [address] Chloride [Moles/Vol] 107 mmol/L Normal 98-108 [facility] Comment on above: Performed By: #### L 500.2500, L501.6710, L100.0100, L501.1400 #### [facility] [address] [place], [address] CO2 [Moles/Vol] 25.6 mmol/L Normal 21.0-32.0 [facility] Comment on above: Performed By: #### L 500.2500, L501.6710, L100.0100, L501.1400 #### [facility] [address] [place], [address] Creatinine [Mass/Vol] 0.99 mg/dL Normal 0.70-1.20 [facility] Comment on above: Performed By: #### L 500.2500, L501.6710, L100.0100, L501.1400 #### [facility] [address] [place], [address] GAP 10 Normal 5-15 [facility] Comment on above: Performed By: #### L 500.2500, L501.6710, L100.0100, L501.1400 #### [facility] [address] [place], [address] GFR/1.73 sq M.predicted among non-blacks MDRD (S/P/Bld) [Vol rate/Area] 56 mL/min/{1.73_m2} Low >60 [facility] Comment on above: Result Comment: mL/m in/1.73m2 CKD-EPI Creatinine Equation (2020) Performed By: #### L 500.2500, L501.6710, L100.0100, L501.1400 #### [facility] [address] [place], [address] Glucose [Mass/Vol] 71 mg/dL Normal 70-99 [facility] Comment on above: Performed By: #### L 500.2500, L501.6710, L100.0100, L501.1400 #### [facility] [address] [place], [address] Potassium [Moles/Vol] 4.2 mmol/L Normal 3.3-5.1 [facility] Comment on above: Performed By: #### L 500.2500, L501.6710, L100.0100, L501.1400 #### [facility] [address] [place], [address] Sodium [Moles/Vol] 143 mmol/L Normal 133-145 [facility] Comment on above: Performed By: #### L 500.2500, [id number], L100.0100, L501.1400 #### [facility] [address] [place], [address] Urea nitrogen [Mass/Vol] 22 mg/dL High 4-19 [facility] Comment on above: Performed By: #### L 500.2500, L501.6710, L100.0100, L501.1400 #### [facility] [address] [place], [address] CBC W/Diff, Automatedon 11-0 3-2024 Absolute Lymph 1.57 X10 3/uL Normal 0.83-4.51 [facility] Comment on above: Performed By: #### L 500.2500, L501.6710, L100.0100, L501.1400 #### [facility] [address] [place], [address] Absolute Neut 3.6 X10 3/uL Normal 2.0-7.7 [facility] Comment on above: Performed By: #### L 500.2500, L501.6710, L100.0100, L501.1400 #### [facility] [address] [facility] [place], [address] Basophils/100 WBC (Bld) 0.9 % Normal 0-1 [facility] Comment on above: Performed By: #### L 500.2500, L501.6710, L100.0100, L501.1400 #### [facility] [address] [facility] [place], [address] Eosinophils/100 WBC (Bld) 1.0 % Normal 0-5 [facility] Comment on above: Performed By: #### L 500.2500, L501.6710, L100.0100, L501.1400 #### [facility] [address] [facility] [place], [address] Erythrocyte distribution width (RBC) [Ratio] 14.3 % Normal 11.6-14.6 [facility] Comment on above: Performed By: #### L 500.2500, L501.6710, L100.0100, L501.1400 #### [facility] [address] [place], [address] Hematocrit (Bld) [Volume fraction] 28.8 % Low 37-47 [facility] Comment on above: Performed By: #### L 500.2500, L501.6710, L100.0100, L501.1400 #### [facility] [address] [place], [address] Hemoglobin (Bld) [Mass/Vol] 8.9 g/dL Low 12.0-15.0 [facility] Comment on above: Performed By: #### L 500.2500, L501.6710, L100.0100, L501.1400 #### [facility] [address] [place], [address] IG% 0.300 Normal 0.0-0.9 [facility] Comment on above: Result Comment: IG% - Immature Granulocytes (promyelocytes, myelocytes and metamyelocytes) > 1% indicates that a LEFT SHIFT is Present. Performed By: #### L 500.2500, L501.6710, L100.0100, L501.1400 #### [facility] [address] [place], [address] Lymphocytes/100 WBC (Bld) 26.9 % Normal 19-41 [facility] Comment on above: Performed By: #### L 500.2500, L501.6710, L100.0100, L501.1400 #### [facility] [address] [place], [address] MCH (RBC) [Entitic mass] 30.9 pg Normal 27.0-32.0 [facility] Comment on above: Performed By: #### L 500.2500, L501.6710, L100.0100, L501.1400 #### [facility] [address] [place], [address] MCHC (RBC) [Mass/Vol] 30.9 g/dL Low 32-36 [facility] Comment on above: Performed By: #### L 500.2500, L501.6710, L100.0100, L501.1400 #### [facility] [address] [place], [address] MCV (RBC) [Entitic vol] 100.0 fL High 81-99 [facility] Comment on above: Performed By: #### L 500.2500, L501.6710, L100.0100, L501.1400 #### [facility] [address] [place], [address] Monocytes/100 WBC (Bld) 8.9 % Normal 0-10 [facility] Comment on above: Performed By: #### L 500.2500, L501.6710, L100.0100, L501.1400 #### [facility] [address] [place], [address] Neutrophils/100 WBC (Bld) 62.0 % Normal 47-70 [facility] Comment on above: Performed By: #### L 500.2500, L501.6710, L100.0100, L501.1400 #### [facility] [address] [place], [address] Nucleated RBC (Bld) [#/Vol] 0 10*3/uL Normal 0-5 [facility] Comment on above: Performed By: #### L 500.2500, L501.6710, L100.0100, L501.1400 #### [facility] [address] [place], [address] Platelet mean volume (Bld) [Entitic vol] 9.4 fL Normal 6.2-12.0 [facility] Comment on above: Performed By: #### L 500.2500, L501.6710, L100.0100, L501.1400 #### [facility] [address] [place], [address] Platelets (Bld) [#/Vol] 163 10*3/uL Normal 150-450 [facility] Comment on above: Performed By: #### L 500.2500, L501.6710, L100.0100, L501.1400 #### [facility] [address] [place], [address] RBC (Bld) [#/Vol] 2.88 10*6/uL Low 4.2-5.4 [facility] Comment on above: Performed By: #### L 500.2500, L501.6710, L100.0100, L501.1400 #### [facility] [address] [place], [address] RDW SD 51.6 fl High 35.1-43.9 [facility] Comment on above: Performed By: #### L 500.2500, L501.6710, L100.0100, L501.1400 #### [facility] [address] [place], [address] WBC (Bld) [#/Vol] 5.8 10*3/uL Normal 4.4-11.0 [facility] Comment on above: Performed By: #### L 500.2500, L501.6710, L100.0100, L501.1400 #### [facility] [address] [place], [address] Uric Acidon 08-11-2025 URIC 7.3 mg/dL High 2.6-6.0 [facility] Comment on above: Result Comment: The drugs N-Acetylcysteine and Metamizole may falsely depress this assay. Performed By: #### L 500.2500, L501.6710, L100.0100, L501.1400 #### [facility] [address] [place], [address] Basic Metabolic Profile (BMP )on 06-23-2025 BUN/CRE 14.3 RATIO Normal 10-20 [facility] Comment on above: Order Comment: 162 Performed By: #### L 500.2500 #### [facility] [address] [place], [address] Calcium [Mass/Vol] 9.1 mg/dL Normal 7.6-11.0 [facility] Comment on above: Order Comment: 162 Performed By: #### L 500.2500 #### [facility] [address] [place], [address] Chloride [Moles/Vol] 106 mmol/L Normal 98-108 [facility] Comment on above: Order Comment: 162 Performed By: #### L 500.2500 #### [facility] [address] [place], [address] CO2 [Moles/Vol] 26.1 mmol/L Normal 21.0-32.0 [facility] Comment on above: Order Comment: 162 Performed By: #### L 500.2500 #### [facility] [address] [place], [address] Creatinine [Mass/Vol] 0.95 mg/dL Normal 0.70-1.20 [facility] Comment on above: Order Comment: 162 Performed By: #### L 500.2500 #### [facility] [address] [place], [address] GAP 11 Normal 5-15 [facility] Comment on above: Order Comment: 162 Performed By: #### L 500.2500 #### [facility] [address] [place], [address] GFR/1.73 sq M.predicted among non-blacks MDRD (S/P/Bld) [Vol rate/Area] 59 mL/min/{1.73_m2} Low >60 [facility] Comment on above: Order Comment: 162 Result Comment: mL/m in/1.73m2 CKD-EPI Creatinine Equation (2020) Performed By: #### L 500.2500 #### [facility] [address] [place], [address] Glucose [Mass/Vol] 105 mg/dL High 70-99 [facility] Comment on above: Order Comment: 162 Performed By: #### L 500.2500 #### [facility] [address] [place], [address] Potassium [Moles/Vol] 4.2 mmol/L Normal 3.3-5.1 [facility] Comment on above: Order Comment: 162 Performed By: #### L 500.2500 #### [facility] [address] [place], [address] Sodium [Moles/Vol] 143 mmol/L Normal 133-145 [facility] Comment on above: Order Comment: 162 Performed By: #### L 500.2500 #### [facility] [address] [place], [place], [address] Urea nitrogen [Mass/Vol] 14 mg/dL Normal 4-19 [facility] Comment on above: Order Comment: 162 Performed By: #### L 500.2500 #### [facility] [address] [place], [address] .Auto Diffon 05-26-2025 Basophil, Absolute 0.0 10 3/mcL Normal 0.0-0.3 [facility] Comment on above: Performed By: #### A 1C, FT4, ANEU, GFR, LIPID, CBC, CMP, TSH, ADIFF #### [address] [address] Basophils/100 WBC (Bld) 0.9 % Normal 0.0-2.5 [facility] Comment on above: Performed By: #### A 1C, FT4, ANEU, GFR, LIPID, CBC, CMP, TSH, ADIFF #### [place] [address] [place], [place] [address] Eosinophil, Absolute 0.1 10 3/mcL Normal 0.0-0.7 [facility] Comment on above: Performed By: #### A 1C, FT4, ANEU, GFR, LIPID, CBC, CMP, TSH, ADIFF #### [address] [address] Eosinophils/100 WBC (Bld) 2.8 % Normal 0.0-6.0 [facility] Comment on above: Performed By: #### A 1C, FT4, ANEU, GFR, LIPID, CBC, CMP, TSH, ADIFF #### [address] [address] Lymphocyte, Absolute 0.9 10 3/mcL Normal 0.9-4.3 [facility] Comment on above: Performed By: #### A 1C, FT4, ANEU, GFR, LIPID, CBC, CMP, TSH, ADIFF #### [address] [address] Lymphocytes/100 WBC (Bld) 18.4 % Low 20.0-40.0 [facility] Comment on above: Performed By: #### A 1C, FT4, ANEU, GFR, LIPID, CBC, CMP, TSH, ADIFF #### [address] [address] Monocyte, Absolute 0.4 10 3/mcL Normal 0.1-1.4 [facility] Comment on above: Performed By: #### A 1C, FT4, ANEU, GFR, LIPID, CBC, CMP, TSH, ADIFF #### [address] [address] Monocytes/100 WBC (Bld) 7.8 % Normal 2.0-13.0 [facility] Comment on above: Performed By: #### A 1C, FT4, ANEU, GFR, LIPID, CBC, CMP, TSH, ADIFF #### [address] [address] Neutrophils/100 WBC (Bld) 70.1 % Normal 50.0-75.0 [facility] Comment on above: Performed By: #### A 1C, FT4, ANEU, GFR, LIPID, CBC, CMP, TSH, ADIFF #### [address] [address] .GFRon 05-26-2025 Estimated Glomerular Filtration Rate 62 ml/min/1.73sqm Normal [facility] Comment on above: Result Comment: Stages [...] GFR, LIPID, CBC, CMP, TSH, ADIFF #### [address] [address] .NEUABSon 05-26-2025 Neutrophil, Absolute 3.5 10 3/mcL Normal 2.3-8.1 [facility] Comment on above: Performed By: #### A 1C, FT4, ANEU, GFR, LIPID, CBC, CMP, TSH, ADIFF #### [address] [address] A1Con 05-26-2025 Glucose [Mass/Vol] 117 mg/dL Normal [facility] Comment on above: Result Comment: Eugenia mated Average Glucose calculated by equation ((28.7xA1C)-46.7) Estimated average glucose (eAG) is a calculated value from Hemoglobin A1C and is passenger relations representative of the average blood glucose level in the last 2-3 month period. Normal range: less than 114 mg/dL Performed By: #### A 1C, FT4, ANEU, GFR, LIPID, CBC, CMP, TSH, ADIFF #### [address] [address] HbA1c (Bld) [Mass fraction] 5.7 % Normal 4.3-6.4 [facility] Comment on above: Performed By: #### A 1C, FT4, ANEU, GFR, LIPID, CBC, CMP, TSH, ADIFF #### [place] [place], [place] [address] CBCon 05-26-2025 Erythrocyte distribution width (RBC) [Ratio] 19.4 % High 11.5-15.5 [facility] Comment on above: Performed By: #### A 1C, FT4, ANEU, GFR, LIPID, CBC, CMP, TSH, ADIFF #### [place] [address] Hematocrit (Bld) [Volume fraction] 31.5 % Low 34.0-46.0 [facility] Comment on above: Performed By: #### A 1C, FT4, ANEU, GFR, LIPID, CBC, CMP, TSH, ADIFF #### [place] [address] Hgb 10.3 G/dL Low 12.0-16.0 [facility] Comment on above: Performed By: #### A 1C, FT4, ANEU, GFR, LIPID, CBC, CMP, TSH, ADIFF #### [place] [address] MCH (RBC) [Entitic mass] 30.1 pg Normal 27.0-33.0 [facility] Comment on above: Performed By: #### A 1C, FT4, ANEU, GFR, LIPID, CBC, CMP, TSH, ADIFF #### [place] [address] MCHC 32.6 G/dL Normal 32.0-36.0 [facility] Comment on above: Performed By: #### A 1C, FT4, ANEU, GFR, LIPID, CBC, CMP, TSH, ADIFF #### [place] [address] MCV (RBC) [Entitic vol] 92.4 fL Normal 80.0-99.0 [facility] Comment on above: Performed By: #### A 1C, FT4, ANEU, GFR, LIPID, CBC, CMP, TSH, ADIFF #### [place] [address] Platelet 146 10 3/mcL Low 150-450 [facility] Comment on above: Performed By: #### A 1C, FT4, ANEU, GFR, LIPID, CBC, CMP, TSH, ADIFF #### [address] [address] Platelet mean volume (Bld) [Entitic vol] 8.0 fL Normal 6.6-10.5 [facility] Comment on above: Performed By: #### A 1C, FT4, ANEU, GFR, LIPID, CBC, CMP, TSH, ADIFF #### [address] [address] RBC 3.41 10 6/mcL Low 4.10-5.30 [facility] Comment on above: Performed By: #### A 1C, FT4, ANEU, GFR, LIPID, CBC, CMP, TSH, ADIFF #### [address] [address] WBC 4.9 10 3/mcL Normal 4.5-10.8 [facility] Comment on above: Performed By: #### A 1C, FT4, ANEU, GFR, LIPID, CBC, CMP, TSH, ADIFF #### [address] [address] CMPon 05-26-2025 Albumin Level 3.5 G/dL Normal 3.4-4.8 [facility] Comment on above: Performed By: #### A 1C, FT4, ANEU, GFR, LIPID, CBC, CMP, TSH, ADIFF #### [address] [address] Albumin/Globulin [Mass ratio] 1.1 {ratio} Normal 1.1-2.5 [facility] Comment on above: Performed By: #### A 1C, FT4, ANEU, GFR, LIPID, CBC, CMP, TSH, ADIFF #### [address] [address] ALP [Catalytic activity/Vol] 53 U/L Normal 40-135 [facility] Comment on above: Performed By: #### A 1C, FT4, ANEU, GFR, LIPID, CBC, CMP, TSH, ADIFF #### [address] [address] ALT [Catalytic activity/Vol] 10 U/L Low 14-59 [facility] Comment on above: Performed By: #### A 1C, FT4, ANEU, GFR, LIPID, CBC, CMP, TSH, ADIFF #### [address] [address] AST [Catalytic activity/Vol] 17 U/L Normal 10-40 [facility] Comment on above: Performed By: #### A 1C, FT4, ANEU, GFR, LIPID, CBC, CMP, TSH, ADIFF #### [address] [address] Bili Total 0.5 mg/dL Normal 0.2-1.0 [facility] Comment on above: Result Comment: Use of this assay is not recommended for patients undergoing treatment with eltrombopag due to the potential for falsely elevated results. Performed By: #### A 1C, FT4, ANEU, GFR, LIPID, CBC, CMP, TSH, ADIFF #### [place] [address] BUN/Creatinine Ratio 18 ratio Normal 7-27 [facility] Comment on above: Performed By: #### A 1C, FT4, ANEU, GFR, LIPID, CBC, CMP, TSH, ADIFF #### [address] [address] Calcium [Mass/Vol] 9.1 mg/dL Normal 8.4-10.2 [facility] Comment on above: Performed By: #### A 1C, FT4, ANEU, GFR, LIPID, CBC, CMP, TSH, ADIFF #### [address] [address] Chloride [Moles/Vol] 103 mmol/L Normal 98-107 [facility] Comment on above: Performed By: #### A 1C, FT4, ANEU, GFR, LIPID, CBC, CMP, TSH, ADIFF #### [address] [address] CO2 [Moles/Vol] 30 mmol/L Normal 23-31 [facility] Comment on above: Performed By: #### A 1C, FT4, ANEU, GFR, LIPID, CBC, CMP, TSH, ADIFF #### [address] [address] Creatinine [Mass/Vol] 0.92 mg/dL Normal 0.51-0.95 [facility] Comment on above: Performed By: #### A 1C, FT4, ANEU, GFR, LIPID, CBC, CMP, TSH, ADIFF #### [address] [address] Electrolyte Balance 7.0 mEq/L Normal 4.0-15.0 [facility] Comment on above: Performed By: #### A 1C, FT4, ANEU, GFR, LIPID, CBC, CMP, TSH, ADIFF #### [address] [address] Globulin 3.3 G/dL Normal 2.7-4.4 [facility] Comment on above: Performed By: #### A 1C, FT4, ANEU, GFR, LIPID, CBC, CMP, TSH, ADIFF #### [address] [address] Glucose [Mass/Vol] 110 mg/dL Normal 83-110 [facility] Comment on above: Performed By: #### A 1C, FT4, ANEU, GFR, LIPID, CBC, CMP, TSH, ADIFF #### [address] [address] Potassium [Moles/Vol] 3.4 mmol/L Low 3.5-5.1 [facility] Comment on above: Performed By: #### A 1C, FT4, ANEU, GFR, LIPID, CBC, CMP, TSH, ADIFF #### [address] [address] Sodium [Moles/Vol] 140 mmol/L Normal 136-145 [facility] Comment on above: Performed By: #### A 1C, FT4, ANEU, GFR, LIPID, CBC, CMP, TSH, ADIFF #### [address] [address] Total Protein 6.8 G/dL Normal 6.4-8.2 [facility] Comment on above: Performed By: #### A 1C, FT4, ANEU, GFR, LIPID, CBC, CMP, TSH, ADIFF #### [place] [address] [place], [place] [address] Urea nitrogen [Mass/Vol] 17 mg/dL Normal 04-25 [facility] Comment on above: Performed By: #### A 1C, FT4, ANEU, GFR, LIPID, CBC, CMP, TSH, ADIFF #### [place] [address] [place], [place] [address] FT4on 05-26-2025 Free T4 [Mass/Vol] 0.82 ng/dL Normal 0.76-1.46 [facility] Comment on above: Performed By: #### A 1C, FT4, ANEU, GFR, LIPID, CBC, CMP, TSH, ADIFF #### [address] [address] LABORATORYOrdered By: SYSTEM SYSTEM on 05-26-2025 Albumin [...] calculated value from Hemoglobin A1C and is passenger relations representative of the average blood glucose level [...] 05-26-2025 Cholesterol [Mass/Vol] 104 mg/dL Normal 0-200 [facility] Comment on above: Result Comment: Chol esterol Reference Interval: Less than 200 Desirable 200-239 Borderline high risk 240 and above High risk Performed By: #### A 1C, FT4, ANEU, GFR, LIPID, CBC, CMP, TSH, ADIFF #### [address] [address] Cholesterol in HDL [Mass/Vol] 41 mg/dL Normal 40-60 [facility] Comment on above: Performed By: #### A 1C, FT4, ANEU, GFR, LIPID, CBC, CMP, TSH, ADIFF #### [place] [address] [place], [place] [address] Cholesterol in LDL [Mass/Vol] 45 mg/dL Normal 0-130 [facility] Comment on above: Performed By: #### A 1C, FT4, ANEU, GFR, LIPID, CBC, CMP, TSH, ADIFF #### [place] [address] [place], [place] [address] Triglyceride [Mass/Vol] 92 mg/dL Normal 0-150 [facility] Comment on above: Result Comment: Trig lyceride Reference Interval: Less than 150 Normal 150-199 Borderline high risk 200-499 High risk 500 or higher Very high risk Performed By: #### A 1C, FT4, ANEU, GFR, LIPID, CBC, CMP, TSH, ADIFF #### [address] [address] TSHon 05-26-2025 TSH Qn 2.31 m[IU]/L Normal 0.36-3.74 [facility] Comment on above: Performed By: #### A 1C, FT4, ANEU, GFR, LIPID, CBC, CMP, TSH, ADIFF #### [address] [address] .Auto Diffon 05-06-2025 Basophil, Absolute 0.1 10 3/mcL Normal 0.0-0.3 [facility] Comment on above: Performed By: #### C BC, ADIFF, ANEU, MORPH, CMP, GFR ####[address] [address] Basophils/100 WBC (Bld) 0.9 % Normal 0.0-2.5 [facility] Comment on above: Performed By: #### C BC, ADIFF, ANEU, MORPH, CMP, GFR ####[place] [address] Eosinophil, Absolute 0.1 10 3/mcL Normal 0.0-0.7 [facility] Comment on above: Performed By: #### C BC, ADIFF, ANEU, MORPH, CMP, GFR ####[address] [address] Eosinophils/100 WBC (Bld) 2.3 % Normal 0.0-6.0 [facility] Comment on above: Performed By: #### C BC, ADIFF, ANEU, MORPH, CMP, GFR ####[address] [address] Lymphocyte, Absolute 1.4 10 3/mcL Normal 0.9-4.3 [facility] Comment on above: Performed By: #### C BC, ADIFF, ANEU, MORPH, CMP, GFR ####[address] [place], [place] [address] Lymphocytes/100 WBC (Bld) 23.1 % Normal 20.0-40.0 [facility] Comment on above: Performed By: #### C BC, ADIFF, ANEU, MORPH, CMP, GFR ####[address] [place], [place] [address] Monocyte, Absolute 0.5 10 3/mcL Normal 0.1-1.4 [facility] Comment on above: Performed By: #### C BC, ADIFF, ANEU, MORPH, CMP, GFR ####[address] [place], [place] [address] Monocytes/100 WBC (Bld) 7.4 % Normal 2.0-13.0 [facility] Comment on above: Performed By: #### C BC, ADIFF, ANEU, MORPH, CMP, GFR ####[address] [place], [place] [address] Neutrophils/100 WBC (Bld) 66.3 % Normal 50.0-75.0 [facility] Comment on above: Performed By: #### C BC, ADIFF, ANEU, MORPH, CMP, GFR ####[address] [place], [place] [address] .GFRon 05-06-2025 Estimated Glomerular Filtration Rate 61 ml/min/1.73sqm Normal [facility] Comment on above: Result Comment: Stages [...] ADIFF, ANEU, MORPH, CMP, GFR ####[address] [place], [place] [address] .Morphon 05-06-2025 Platelet Estimate Normal Normal [facility] Comment on above: Performed By: #### C BC, ADIFF, ANEU, MORPH, CMP, GFR ####[address] [place] [id number] .NEUABSon 05-06-2025 Neutrophil, Absolute 4.1 10 3/mcL Normal 2.3-8.1 [facility] Comment on above: Performed By: #### C BC, ADIFF, ANEU, MORPH, CMP, GFR ####[address] [place] [address] CBCon 05-06-2025 Erythrocyte distribution width (RBC) [Ratio] 20.3 % High 11.5-15.5 [facility] Comment on above: Performed By: #### C BC, ADIFF, ANEU, MORPH, CMP, GFR ####[address] [place] [address] Hematocrit (Bld) [Volume fraction] 31.3 % Low 34.0-46.0 [facility] Comment on above: Performed By: #### C BC, ADIFF, ANEU, MORPH, CMP, GFR ####[address] [address] Hgb 10.2 G/dL Low 12.0-16.0 [facility] Comment on above: Performed By: #### C BC, ADIFF, ANEU, MORPH, CMP, GFR ####[place] [address] [address] MCH (RBC) [Entitic mass] 29.3 pg Normal 27.0-33.0 [facility] Comment on above: Performed By: #### C BC, ADIFF, ANEU, MORPH, CMP, GFR ####[address] [place] [address] MCHC 32.6 G/dL Normal 32.0-36.0 [facility] Comment on above: Performed By: #### C BC, ADIFF, ANEU, MORPH, CMP, GFR ####[id number] [place] [address] MCV (RBC) [Entitic vol] 90.1 fL Normal 80.0-99.0 [facility] Comment on above: Performed By: #### C BC, ADIFF, ANEU, MORPH, CMP, GFR ####[address] [place], [place] [address] Platelet 194 10 3/mcL Normal 150-450 [facility] Comment on above: Performed By: #### C BC, ADIFF, ANEU, MORPH, CMP, GFR ####[address] [place], [place] [address] Platelet mean volume (Bld) [Entitic vol] 7.3 fL Normal 6.6-10.5 [facility] Comment on above: Performed By: #### C BC, ADIFF, ANEU, MORPH, CMP, GFR ####[address] [place], [place] [address] RBC 3.47 10 6/mcL Low 4.10-5.30 [facility] Comment on above: Performed By: #### C BC, ADIFF, ANEU, MORPH, CMP, GFR ####[address] [place], [place] [address] WBC 6.2 10 3/mcL Normal 4.5-10.8 [facility] Comment on above: Performed By: #### C BC, ADIFF, ANEU, MORPH, CMP, GFR ####[address] [place], [place] [address] CMPon 05-06-2025 Albumin Level 3.6 G/dL Normal 3.4-4.8 [facility] Comment on above: Performed By: #### C BC, ADIFF, ANEU, MORPH, CMP, GFR ####[address] [place], [place] [address] Albumin/Globulin [Mass ratio] 1.1 {ratio} Normal 1.1-2.5 [facility] Comment on above: Performed By: #### C BC, ADIFF, ANEU, MORPH, CMP, GFR ####[address] [place], [place] [address] ALP [Catalytic activity/Vol] 61 U/L Normal 40-135 [facility] Comment on above: Performed By: #### C BC, ADIFF, ANEU, MORPH, CMP, GFR ####[place] [address] [place], [place] [address] ALT [Catalytic activity/Vol] 16 U/L Normal 14-59 [facility] Comment on above: Performed By: #### C BC, ADIFF, ANEU, MORPH, CMP, GFR ####[place] [address] [place], [place] [address] AST [Catalytic activity/Vol] 19 U/L Normal 10-40 [facility] Comment on above: Performed By: #### C BC, ADIFF, ANEU, MORPH, CMP, GFR ####[place] [address] [place] [id number] Bili Total 0.4 mg/dL Normal 0.2-1.0 [facility] Comment on above: Result Comment: Use of this assay is not recommended for patients undergoing treatment with eltrombopag due to the potential for falsely elevated results. Performed By: #### C BC, ADIFF, ANEU, MORPH, CMP, GFR ####[place] [address] [place] [id number] BUN/Creatinine Ratio 15 ratio Normal 7-27 [facility] Comment on above: Performed By: #### C BC, ADIFF, ANEU, MORPH, CMP, GFR ####[place] [address] [place], [place] [address] Calcium [Mass/Vol] 9.4 mg/dL Normal 8.4-10.2 [facility] Comment on above: Performed By: #### C BC, ADIFF, ANEU, MORPH, CMP, GFR ####[place] [address] [place], [place] [address] Chloride [Moles/Vol] 103 mmol/L Normal 98-107 [facility] Comment on above: Performed By: #### C BC, ADIFF, ANEU, MORPH, CMP, GFR ####[place] [address] [place], [place] [address] CO2 [Moles/Vol] 28 mmol/L Normal 23-31 [facility] Comment on above: Performed By: #### C BC, ADIFF, ANEU, MORPH, CMP, GFR ####[place] [address] [place], [place] [address] Creatinine [Mass/Vol] 0.93 mg/dL Normal 0.51-0.95 [facility] Comment on above: Performed By: #### C BC, ADIFF, ANEU, MORPH, CMP, GFR ####[address] [place] [id number] Electrolyte Balance 11.0 mEq/L Normal 4.0-15.0 [facility] Comment on above: Performed By: #### C BC, ADIFF, ANEU, MORPH, CMP, GFR ####[address] [place], [place] [address] Globulin 3.4 G/dL Normal 2.7-4.4 [facility] Comment on above: Performed By: #### C BC, ADIFF, ANEU, MORPH, CMP, GFR ####[address] [address] Glucose [Mass/Vol] 159 mg/dL High 83-110 [facility] Comment on above: Performed By: #### C BC, ADIFF, ANEU, MORPH, CMP, GFR ####[address] [address] Potassium [Moles/Vol] 3.5 mmol/L Normal 3.5-5.1 [facility] Comment on above: Performed By: #### C BC, ADIFF, ANEU, MORPH, CMP, GFR ####[address] [address] Sodium [Moles/Vol] 142 mmol/L Normal 136-145 [facility] Comment on above: Performed By: #### C BC, ADIFF, ANEU, MORPH, CMP, GFR ####[address] [address] Total Protein 7.0 G/dL Normal 6.4-8.2 [facility] Comment on above: Performed By: #### C BC, ADIFF, ANEU, MORPH, CMP, GFR ####[facility] [place], [place] [address] Urea nitrogen [Mass/Vol] 14 mg/dL Normal 7-18 [facility] Comment on above: Performed By: #### C BC, ADIFF, ANEU, MORPH, CMP, GFR ####[facility] [place], [place] [address] LABORATORYOrdered By: SYSTEM SYSTEM on 05-06-2025 Albumin [...] 116 mg/dL High 82 - 115 mg/dL [facility] HbA1c (Bld) [Mass fraction] 5.7 % [facility] Lab Performed By Dhruv Cook PharmD [facility] Lab Performing Location [facility] GGTon 04-15-2025 Gamma GT 94 U/L High 5-55 [facility] Comment on above: Performed By: #### A 1C, FT4, ANEU, GFR, LIPID, CBC, CMP, TSH, ADIFF #### [address] [address] ALT/SGPTon 04-14-2025 ALT [Catalytic activity/Vol] 39 U/L Normal 14-59 [facility] Comment on above: Performed By: #### A 1C, FT4, ANEU, GFR, LIPID, CBC, CMP, TSH, ADIFF #### [address] [id number] APon 04-14-2025 ALP [Catalytic activity/Vol] 88 U/L Normal 40-135 [facility] Comment on above: Performed By: #### A 1C, FT4, ANEU, GFR, LIPID, CBC, CMP, TSH, ADIFF #### [address] [address] FEon 04-14-2025 Iron [Mass/Vol] 28 ug/dL Low 50-170 [facility] Comment on above: Performed By: #### A 1C, FT4, ANEU, GFR, LIPID, CBC, CMP, TSH, ADIFF #### [address] [address] Dipti 04-14-2025 Ferritin [Mass/Vol] 40.0 ng/mL Normal 8.0-252.0 [facility] Comment on above: Performed By: #### A 1C, FT4, ANEU, GFR, LIPID, CBC, CMP, TSH, ADIFF #### [address] [address] HHon 04-14-2025 Hematocrit (Bld) [Volume fraction] 27.4 % Low 34.0-46.0 [facility] Comment on above: Performed By: #### A 1C, FT4, ANEU, GFR, LIPID, CBC, CMP, TSH, ADIFF #### [address] [address] Hgb 8.8 G/dL Low 12.0-16.0 [facility] Comment on above: Performed By: #### A 1C, FT4, ANEU, GFR, LIPID, CBC, CMP, TSH, ADIFF #### [address] [address] LABORATORYOrdered By: SYSTEM SYSTEM on 04-14-2025 ALP [...] Basophil, Absolute 0.0 10 3/mcL Normal 0.0-0.3 [facility] Comment on above: Performed By: #### A 1C, FT4, ANEU, GFR, LIPID, CBC, CMP, TSH, ADIFF #### [address] [address] Basophils/100 WBC (Bld) 0.6 % Normal 0.0-2.5 [facility] Comment on above: Performed By: #### A 1C, FT4, ANEU, GFR, LIPID, CBC, CMP, TSH, ADIFF #### [address] [address] Eosinophil, Absolute 0.1 10 3/mcL Normal 0.0-0.7 [facility] Comment on above: Performed By: #### A 1C, FT4, ANEU, GFR, LIPID, CBC, CMP, TSH, ADIFF #### [address] [address] Eosinophils/100 WBC (Bld) 1.6 % Normal 0.0-6.0 [facility] Comment on above: Performed By: #### A 1C, FT4, ANEU, GFR, LIPID, CBC, CMP, TSH, ADIFF #### [address] [address] Lymphocyte, Absolute 1.5 10 3/mcL Normal 0.9-4.3 [facility] Comment on above: Performed By: #### A 1C, FT4, ANEU, GFR, LIPID, CBC, CMP, TSH, ADIFF #### [address] [address] Lymphocytes/100 WBC (Bld) 20.6 % Normal 20.0-40.0 [facility] Comment on above: Performed By: #### A 1C, FT4, ANEU, GFR, LIPID, CBC, CMP, TSH, ADIFF #### [address] [address] Monocyte, Absolute 0.5 10 3/mcL Normal 0.1-1.4 [facility] Comment on above: Performed By: #### A 1C, FT4, ANEU, GFR, LIPID, CBC, CMP, TSH, ADIFF #### [address] [address] Monocytes/100 WBC (Bld) 6.8 % Normal 2.0-13.0 [facility] Comment on above: Performed By: #### A 1C, FT4, ANEU, GFR, LIPID, CBC, CMP, TSH, ADIFF #### [address] [address] Neutrophils/100 WBC (Bld) 70.4 % Normal 50.0-75.0 [facility] Comment on above: Performed By: #### A 1C, FT4, ANEU, GFR, LIPID, CBC, CMP, TSH, ADIFF #### [address] [address] .NEUABSon 03-28-2025 Neutrophil, Absolute 5.0 10 3/mcL Normal 2.3-8.1 [facility] Comment on above: Performed By: #### A 1C, FT4, ANEU, GFR, LIPID, CBC, CMP, TSH, ADIFF #### [address] [address] CBCon 03-28-2025 Erythrocyte distribution width (RBC) [Ratio] 16.0 % High 11.5-15.5 [facility] Comment on above: Performed By: #### A 1C, FT4, ANEU, GFR, LIPID, CBC, CMP, TSH, ADIFF #### [address] [address] Hematocrit (Bld) [Volume fraction] 28.4 % Low 34.0-46.0 [facility] Comment on above: Performed By: #### A 1C, FT4, ANEU, GFR, LIPID, CBC, CMP, TSH, ADIFF #### [address] [address] Hgb 9.0 G/dL Low 12.0-16.0 [facility] Comment on above: Performed By: #### A 1C, FT4, ANEU, GFR, LIPID, CBC, CMP, TSH, ADIFF #### [address] [address] MCH (RBC) [Entitic mass] 27.6 pg Normal 27.0-33.0 [facility] Comment on above: Performed By: #### A 1C, FT4, ANEU, GFR, LIPID, CBC, CMP, TSH, ADIFF #### [address] [address] MCHC 31.8 G/dL Low 32.0-36.0 [facility] Comment on above: Performed By: #### A 1C, FT4, ANEU, GFR, LIPID, CBC, CMP, TSH, ADIFF #### [address] [address] MCV (RBC) [Entitic vol] 86.9 fL Normal 80.0-99.0 [facility] Comment on above: Performed By: #### A 1C, FT4, ANEU, GFR, LIPID, CBC, CMP, TSH, ADIFF #### [address] [address] Platelet 286 10 3/mcL Normal 150-450 [facility] Comment on above: Performed By: #### A 1C, FT4, ANEU, GFR, LIPID, CBC, CMP, TSH, ADIFF #### [place] [address] Platelet mean volume (Bld) [Entitic vol] 7.5 fL Normal 6.6-10.5 [facility] Comment on above: Performed By: #### A 1C, FT4, ANEU, GFR, LIPID, CBC, CMP, TSH, ADIFF #### [place] [address] RBC 3.27 10 6/mcL Low 4.10-5.30 [facility] Comment on above: Performed By: #### A 1C, FT4, ANEU, GFR, LIPID, CBC, CMP, TSH, ADIFF #### [place] [address] WBC 7.2 10 3/mcL Normal 4.5-10.8 [facility] Comment on above: Performed By: #### A 1C, FT4, ANEU, GFR, LIPID, CBC, CMP, TSH, ADIFF #### [place] [address] FEon 03-28-2025 Iron [Mass/Vol] 30 ug/dL Low 50-170 [facility] Comment on above: Performed By: #### A 1C, FT4, ANEU, GFR, LIPID, CBC, CMP, TSH, ADIFF #### [place] [address] Dipti 03-28-2025 Ferritin [Mass/Vol] 50.0 ng/mL Normal 8.0-252.0 [facility] Comment on above: Performed By: #### A 1C, FT4, ANEU, GFR, LIPID, CBC, CMP, TSH, ADIFF #### [place] [address] LABORATORYOrdered By: SYSTEM SYSTEM on 03-28-2025 Basophils [...] Immature Retic Fraction 0.40 IRF Normal 0.20-0.46 [facility] Comment on above: Performed By: #### A 1C, FT4, ANEU, GFR, LIPID, CBC, CMP, TSH, ADIFF #### [address] [address] Reticulocytes, Auto 2.0 % Normal 0.2-2.3 [facility] Comment on above: Performed By: #### A 1C, FT4, ANEU, GFR, LIPID, CBC, CMP, TSH, ADIFF #### [address] [address] .GFRon 03-20-2025 Estimated Glomerular Filtration Rate 57 ml/min/1.73sqm Normal [facility] Comment on above: Result Comment: Stages [...] By: #### G FR, BMP #### [address] [place], [place] [address] BMPon 03-20-2025 BUN/Creatinine Ratio 17 ratio Normal 7-27 [facility] Comment on above: Performed By: #### G FR, BMP #### [address] [facility] [place], [place] [address] Calcium [Mass/Vol] 9.1 mg/dL Normal 8.4-10.2 [facility] Comment on above: Performed By: #### G FR, BMP #### [address] [facility] [place], [place] [address] Chloride [Moles/Vol] 103 mmol/L Normal 98-107 [facility] Comment on above: Performed By: #### G FR, BMP #### [address] [facility] [place] [place] [address] CO2 [Moles/Vol] 28 mmol/L Normal 23-31 [facility] Comment on above: Performed By: #### G FR, BMP #### [address] [facility] [place] [place] [address] Creatinine [Mass/Vol] 0.98 mg/dL High 0.51-0.95 [facility] Comment on above: Performed By: #### G FR, BMP #### [address] [facility] [place] [place] [address] Electrolyte Balance 10.0 mEq/L Normal 4.0-15.0 [facility] Comment on above: Performed By: #### G FR, BMP #### [address] [facility] [place] [place] [address] Glucose [Mass/Vol] 175 mg/dL High 83-110 [facility] Comment on above: Performed By: #### G FR, BMP #### [address] [facility] [place] [place] [address] Potassium [Moles/Vol] 4.1 mmol/L Normal 3.5-5.1 [facility] Comment on above: Performed By: #### G FR, BMP #### Lali [address] [facility] [place], [place] [address] Sodium [Moles/Vol] 141 mmol/L Normal 136-145 [facility] Comment on above: Performed By: #### G FR, BMP #### [facility] [address] [place], [place] [address] Urea nitrogen [Mass/Vol] 17 mg/dL Normal 7-18 [facility] Comment on above: Performed By: #### G FR, BMP #### [facility] [address] [place], [place] [address] .Auto Diffon 03-06-2025 Basophil, Absolute 0.0 10 3/mcL Normal 0.0-0.3 [facility] Comment on above: Performed By: #### A 1C, FT4, ANEU, GFR, LIPID, CBC, CMP, TSH, ADIFF #### [address] [address] Basophils/100 WBC (Bld) 0.9 % Normal 0.0-2.5 [facility] Comment on above: Performed By: #### A 1C, FT4, ANEU, GFR, LIPID, CBC, CMP, TSH, ADIFF #### [address] [address] Eosinophil, Absolute 0.2 10 3/mcL Normal 0.0-0.7 [facility] Comment on above: Performed By: #### A 1C, FT4, ANEU, GFR, LIPID, CBC, CMP, TSH, ADIFF #### [address] [address] Eosinophils/100 WBC (Bld) 3.3 % Normal 0.0-6.0 [facility] Comment on above: Performed By: #### A 1C, FT4, ANEU, GFR, LIPID, CBC, CMP, TSH, ADIFF #### [address] [address] Lymphocyte, Absolute 0.8 10 3/mcL Low 0.9-4.3 [facility] Comment on above: Performed By: #### A 1C, FT4, ANEU, GFR, LIPID, CBC, CMP, TSH, ADIFF #### [address] [address] Lymphocytes/100 WBC (Bld) 15.5 % Low 20.0-40.0 [facility] Comment on above: Performed By: #### A 1C, FT4, ANEU, GFR, LIPID, CBC, CMP, TSH, ADIFF #### [place] [address] [place], [place] [address] Monocyte, Absolute 0.5 10 3/mcL Normal 0.1-1.4 [facility] Comment on above: Performed By: #### A 1C, FT4, ANEU, GFR, LIPID, CBC, CMP, TSH, ADIFF #### [address] [address] Monocytes/100 WBC (Bld) 9.3 % Normal 2.0-13.0 [facility] Comment on above: Performed By: #### A 1C, FT4, ANEU, GFR, LIPID, CBC, CMP, TSH, ADIFF #### [place] [id number] [place], [place] [address] Neutrophils/100 WBC (Bld) 71.0 % Normal 50.0-75.0 [facility] Comment on above: Performed By: #### A 1C, FT4, ANEU, GFR, LIPID, CBC, CMP, TSH, ADIFF #### [address] [address] .GFRon 03-06-2025 Estimated Glomerular Filtration Rate 35 ml/min/1.73sqm Normal [facility] Comment on above: Result Comment: Stages [...] LIPID, CBC, CMP, TSH, ADIFF #### [place] [address] .NEUABSon 03-06-2025 Neutrophil, Absolute 3.8 10 3/mcL Normal 2.3-8.1 [facility] Comment on above: Performed By: #### A 1C, FT4, ANEU, GFR, LIPID, CBC, CMP, TSH, ADIFF #### [place] [address] CBCon 03-06-2025 Erythrocyte distribution width (RBC) [Ratio] 16.1 % High 11.5-15.5 [facility] Comment on above: Performed By: #### A 1C, FT4, ANEU, GFR, LIPID, CBC, CMP, TSH, ADIFF #### [place] [address] Hematocrit (Bld) [Volume fraction] 29.5 % Low 34.0-46.0 [facility] Comment on above: Performed By: #### A 1C, FT4, ANEU, GFR, LIPID, CBC, CMP, TSH, ADIFF #### [place] [address] Hgb 9.5 G/dL Low 12.0-16.0 [facility] Comment on above: Performed By: #### A 1C, FT4, ANEU, GFR, LIPID, CBC, CMP, TSH, ADIFF #### [place] [id number] MCH (RBC) [Entitic mass] 28.4 pg Normal 27.0-33.0 [facility] Comment on above: Performed By: #### A 1C, FT4, ANEU, GFR, LIPID, CBC, CMP, TSH, ADIFF #### [place] [address] MCHC 32.3 G/dL Normal 32.0-36.0 [facility] Comment on above: Performed By: #### A 1C, FT4, ANEU, GFR, LIPID, CBC, CMP, TSH, ADIFF #### [place] [address] MCV (RBC) [Entitic vol] 87.9 fL Normal 80.0-99.0 [facility] Comment on above: Performed By: #### A 1C, FT4, ANEU, GFR, LIPID, CBC, CMP, TSH, ADIFF #### [address] [address] Platelet 198 10 3/mcL Normal 150-450 [facility] Comment on above: Performed By: #### A 1C, FT4, ANEU, GFR, LIPID, CBC, CMP, TSH, ADIFF #### [address] [address] Platelet mean volume (Bld) [Entitic vol] 7.1 fL Normal 6.6-10.5 [facility] Comment on above: Performed By: #### A 1C, FT4, ANEU, GFR, LIPID, CBC, CMP, TSH, ADIFF #### [address] [address] RBC 3.36 10 6/mcL Low 4.10-5.30 [facility] Comment on above: Performed By: #### A 1C, FT4, ANEU, GFR, LIPID, CBC, CMP, TSH, ADIFF #### [address] [address] WBC 5.3 10 3/mcL Normal 4.5-10.8 [facility] Comment on above: Performed By: #### A 1C, FT4, ANEU, GFR, LIPID, CBC, CMP, TSH, ADIFF #### [address] [address] CMPon 03-06-2025 Albumin Level 3.6 G/dL Normal 3.4-4.8 [facility] Comment on above: Performed By: #### A 1C, FT4, ANEU, GFR, LIPID, CBC, CMP, TSH, ADIFF #### [address] [address] Albumin/Globulin [Mass ratio] 1.0 {ratio} Low 1.1-2.5 [facility] Comment on above: Performed By: #### A 1C, FT4, ANEU, GFR, LIPID, CBC, CMP, TSH, ADIFF #### [address] [address] ALP [Catalytic activity/Vol] 77 U/L Normal 40-135 [facility] Comment on above: Performed By: #### A 1C, FT4, ANEU, GFR, LIPID, CBC, CMP, TSH, ADIFF #### [address] [address] ALT [Catalytic activity/Vol] 18 U/L Normal 14-59 [facility] Comment on above: Performed By: #### A 1C, FT4, ANEU, GFR, LIPID, CBC, CMP, TSH, ADIFF #### [address] [address] AST [Catalytic activity/Vol] 19 U/L Normal 10-40 [facility] Comment on above: Performed By: #### A 1C, FT4, ANEU, GFR, LIPID, CBC, CMP, TSH, ADIFF #### [address] [address] Bili Total 0.2 mg/dL Normal 0.2-1.0 [facility] Comment on above: Result Comment: Use of this assay is not recommended for patients undergoing treatment with eltrombopag due to the potential for falsely elevated results. Performed By: #### A 1C, FT4, ANEU, GFR, LIPID, CBC, CMP, TSH, ADIFF #### [address] [address] BUN/Creatinine Ratio 16 ratio Normal 7-27 [facility] Comment on above: Performed By: #### A 1C, FT4, ANEU, GFR, LIPID, CBC, CMP, TSH, ADIFF #### [address] [address] Calcium [Mass/Vol] 9.1 mg/dL Normal 8.4-10.2 [facility] Comment on above: Performed By: #### A 1C, FT4, ANEU, GFR, LIPID, CBC, CMP, TSH, ADIFF #### [address] [address] Chloride [Moles/Vol] 102 mmol/L Normal 98-107 [facility] Comment on above: Performed By: #### A 1C, FT4, ANEU, GFR, LIPID, CBC, CMP, TSH, ADIFF #### [place] [address] CO2 [Moles/Vol] 24 mmol/L Normal 23-31 [facility] Comment on above: Performed By: #### A 1C, FT4, ANEU, GFR, LIPID, CBC, CMP, TSH, ADIFF #### [address] [address] Creatinine [Mass/Vol] 1.47 mg/dL High 0.51-0.95 [facility] Comment on above: Performed By: #### A 1C, FT4, ANEU, GFR, LIPID, CBC, CMP, TSH, ADIFF #### [place] [address] Electrolyte Balance 10.0 mEq/L Normal 4.0-15.0 [facility] Comment on above: Performed By: #### A 1C, FT4, ANEU, GFR, LIPID, CBC, CMP, TSH, ADIFF #### [place] [address] Globulin 3.7 G/dL Normal 2.7-4.4 [facility] Comment on above: Performed By: #### A 1C, FT4, ANEU, GFR, LIPID, CBC, CMP, TSH, ADIFF #### [place] [address] Glucose [Mass/Vol] 189 mg/dL High 83-110 [facility] Comment on above: Performed By: #### A 1C, FT4, ANEU, GFR, LIPID, CBC, CMP, TSH, ADIFF #### [place] [address] Potassium [Moles/Vol] 5.0 mmol/L Normal 3.5-5.1 [facility] Comment on above: Performed By: #### A 1C, FT4, ANEU, GFR, LIPID, CBC, CMP, TSH, ADIFF #### [address] [address] Sodium [Moles/Vol] 136 mmol/L Normal 136-145 [facility] Comment on above: Performed By: #### A 1C, FT4, ANEU, GFR, LIPID, CBC, CMP, TSH, ADIFF #### [place] [address] Total Protein 7.3 G/dL Normal 6.4-8.2 [facility] Comment on above: Performed By: #### A 1C, FT4, ANEU, GFR, LIPID, CBC, CMP, TSH, ADIFF #### [place] [address] Urea nitrogen [Mass/Vol] 23 mg/dL High 7-18 [facility] Comment on above: Performed By: #### A 1C, FT4, ANEU, GFR, LIPID, CBC, CMP, TSH, ADIFF #### [place] [address] FEon 03-06-2025 Iron [Mass/Vol] 35 ug/dL Low 50-170 [facility] Comment on above: Performed By: #### A 1C, FT4, ANEU, GFR, LIPID, CBC, CMP, TSH, ADIFF #### [address] [address] Dipti 03-06-2025 Ferritin [Mass/Vol] 28.0 ng/mL Normal 8.0-252.0 [facility] Comment on above: Performed By: #### A 1C, FT4, ANEU, GFR, LIPID, CBC, CMP, TSH, ADIFF #### [place] [address] LABORATORYOrdered By: SYSTEM SYSTEM on 03-06-2025 Albumin [...] Immature Retic Fraction 0.38 IRF Normal 0.20-0.46 [facility] Comment on above: Performed By: #### A 1C, FT4, ANEU, GFR, LIPID, CBC, CMP, TSH, ADIFF #### [place] [id number] [place], [place] [address] Reticulocytes, Auto 1.6 % Normal 0.2-2.3 [facility] Comment on above: Performed By: #### A 1C, FT4, ANEU, GFR, LIPID, CBC, CMP, TSH, ADIFF #### [place] [id number] [place], [place] [address] No Panel Informationon 02-20 Culture Wound Aerobe Few normal skin mariano ra present. Sensitivity testing not indicated. [facility] GS 4+ Polymorphonuclear cells 2+ Gram Positive Cocci [facility] CT ABDOMEN/PELVIS W/CONTRAST on 02-18-2025 CT [...] 4:10:18 PM Ordering Provider: FITZ GA Normal [facility] .Auto Diffon 02-10-2025 Basophil, Absolute 0.0 10 3/mcL Normal 0.0-0.3 [facility] Comment on above: Performed By: #### A 1C, FT4, ANEU, GFR, LIPID, CBC, CMP, TSH, ADIFF #### [facility] [address] [place], [place] [address] Basophils/100 WBC (Bld) 0.5 % Normal 0.0-2.5 [facility] Comment on above: Performed By: #### A 1C, FT4, ANEU, GFR, LIPID, CBC, CMP, TSH, ADIFF #### [address] [address] Eosinophil, Absolute 0.2 10 3/mcL Normal 0.0-0.7 [facility] Comment on above: Performed By: #### A 1C, FT4, ANEU, GFR, LIPID, CBC, CMP, TSH, ADIFF #### [address] [address] Eosinophils/100 WBC (Bld) 4.3 % Normal 0.0-6.0 [facility] Comment on above: Performed By: #### A 1C, FT4, ANEU, GFR, LIPID, CBC, CMP, TSH, ADIFF #### [address] [address] Lymphocyte, Absolute 1.1 10 3/mcL Normal 0.9-4.3 [facility] Comment on above: Performed By: #### A 1C, FT4, ANEU, GFR, LIPID, CBC, CMP, TSH, ADIFF #### [address] [address] Lymphocytes/100 WBC (Bld) 23.7 % Normal 20.0-40.0 [facility] Comment on above: Performed By: #### A 1C, FT4, ANEU, GFR, LIPID, CBC, CMP, TSH, ADIFF #### [address] [address] Monocyte, Absolute 0.4 10 3/mcL Normal 0.1-1.4 [facility] Comment on above: Performed By: #### A 1C, FT4, ANEU, GFR, LIPID, CBC, CMP, TSH, ADIFF #### [address] [address] Monocytes/100 WBC (Bld) 8.2 % Normal 2.0-13.0 [facility] Comment on above: Performed By: #### A 1C, FT4, ANEU, GFR, LIPID, CBC, CMP, TSH, ADIFF #### [address] [address] Neutrophils/100 WBC (Bld) 63.3 % Normal 50.0-75.0 [facility] Comment on above: Performed By: #### A 1C, FT4, ANEU, GFR, LIPID, CBC, CMP, TSH, ADIFF #### [address] [address] .GFRon 02-10-2025 Estimated Glomerular Filtration Rate 71 ml/min/1.73sqm Normal [facility] Comment on above: Result Comment: Stages [...] GFR, LIPID, CBC, CMP, TSH, ADIFF #### [address] [address] .NEUABSon 02-10-2025 Neutrophil, Absolute 3.0 10 3/mcL Normal 2.3-8.1 [facility] Comment on above: Performed By: #### A 1C, FT4, ANEU, GFR, LIPID, CBC, CMP, TSH, ADIFF #### [place] [id number] [place], [place] [address] A1Con 02-10-2025 Glucose [Mass/Vol] 146 mg/dL Normal [facility] Comment on above: Result Comment: Eugenia mated Average Glucose calculated by equation ((28.7xA1C)-46.7) Estimated average glucose (eAG) is a calculated value from Hemoglobin A1C and is passenger relations representative of the average blood glucose level in the last 2-3 month period. Normal range: less than 114 mg/dL Performed By: #### A 1C, FT4, ANEU, GFR, LIPID, CBC, CMP, TSH, ADIFF ####[place] [address] HbA1c (Bld) [Mass fraction] 6.7 % High 4.3-6.4 [facility] Comment on above: Performed By: #### A 1C, FT4, ANEU, GFR, LIPID, CBC, CMP, TSH, ADIFF ####[place] [address] CBCon 02-10-2025 Erythrocyte distribution width (RBC) [Ratio] 15.5 % Normal 11.5-15.5 [facility] Comment on above: Performed By: #### A 1C, FT4, ANEU, GFR, LIPID, CBC, CMP, TSH, ADIFF #### [place] [address] Hematocrit (Bld) [Volume fraction] 30.2 % Low 34.0-46.0 [facility] Comment on above: Performed By: #### A 1C, FT4, ANEU, GFR, LIPID, CBC, CMP, TSH, ADIFF #### [place] [address] Hgb 9.9 G/dL Low 12.0-16.0 [facility] Comment on above: Performed By: #### A 1C, FT4, ANEU, GFR, LIPID, CBC, CMP, TSH, ADIFF #### [place] [address] MCH (RBC) [Entitic mass] 29.5 pg Normal 27.0-33.0 [facility] Comment on above: Performed By: #### A 1C, FT4, ANEU, GFR, LIPID, CBC, CMP, TSH, ADIFF #### [place] [address] MCHC 32.8 G/dL Normal 32.0-36.0 [facility] Comment on above: Performed By: #### A 1C, FT4, ANEU, GFR, LIPID, CBC, CMP, TSH, ADIFF #### [address] [place] [address] MCV (RBC) [Entitic vol] 90.0 fL Normal 80.0-99.0 [facility] Comment on above: Performed By: #### A 1C, FT4, ANEU, GFR, LIPID, CBC, CMP, TSH, ADIFF #### [address] [address] Platelet 290 10 3/mcL Normal 150-450 [facility] Comment on above: Performed By: #### A 1C, FT4, ANEU, GFR, LIPID, CBC, CMP, TSH, ADIFF #### [address] [address] Platelet mean volume (Bld) [Entitic vol] 6.9 fL Normal 6.6-10.5 [facility] Comment on above: Performed By: #### A 1C, FT4, ANEU, GFR, LIPID, CBC, CMP, TSH, ADIFF #### [address] [address] RBC 3.35 10 6/mcL Low 4.10-5.30 [facility] Comment on above: Performed By: #### A 1C, FT4, ANEU, GFR, LIPID, CBC, CMP, TSH, ADIFF #### [address] [address] WBC 4.7 10 3/mcL Normal 4.5-10.8 [facility] Comment on above: Performed By: #### A 1C, FT4, ANEU, GFR, LIPID, CBC, CMP, TSH, ADIFF #### [address] [address] CMPon 02-10-2025 Albumin Level 3.5 G/dL Normal 3.4-4.8 [facility] Comment on above: Performed By: #### A 1C, FT4, ANEU, GFR, LIPID, CBC, CMP, TSH, ADIFF #### [address] [address] Albumin/Globulin [Mass ratio] 1.0 {ratio} Low 1.1-2.5 [facility] Comment on above: Performed By: #### A 1C, FT4, ANEU, GFR, LIPID, CBC, CMP, TSH, ADIFF #### [place] [address] ALP [Catalytic activity/Vol] 195 U/L High 40-135 [facility] Comment on above: Performed By: #### A 1C, FT4, ANEU, GFR, LIPID, CBC, CMP, TSH, ADIFF #### [place] [address] ALT [Catalytic activity/Vol] 67 U/L High 14-59 [facility] Comment on above: Performed By: #### A 1C, FT4, ANEU, GFR, LIPID, CBC, CMP, TSH, ADIFF #### [place] [address] AST [Catalytic activity/Vol] 98 U/L High 10-40 [facility] Comment on above: Performed By: #### A 1C, FT4, ANEU, GFR, LIPID, CBC, CMP, TSH, ADIFF #### [place] [address] Bili Total 0.5 mg/dL Normal 0.2-1.0 [facility] Comment on above: Result Comment: Use of this assay is not recommended for patients undergoing treatment with eltrombopag due to the potential for falsely elevated results. Performed By: #### A 1C, FT4, ANEU, GFR, LIPID, CBC, CMP, TSH, ADIFF #### [place] [address] BUN/Creatinine Ratio 13 ratio Normal 7-27 [facility] Comment on above: Performed By: #### A 1C, FT4, ANEU, GFR, LIPID, CBC, CMP, TSH, ADIFF #### [place] [address] Calcium [Mass/Vol] 9.4 mg/dL Normal 8.4-10.2 [facility] Comment on above: Performed By: #### A 1C, FT4, ANEU, GFR, LIPID, CBC, CMP, TSH, ADIFF #### [address] [address] Chloride [Moles/Vol] 106 mmol/L Normal 98-107 [facility] Comment on above: Performed By: #### A 1C, FT4, ANEU, GFR, LIPID, CBC, CMP, TSH, ADIFF #### [address] [address] CO2 [Moles/Vol] 27 mmol/L Normal 23-31 [facility] Comment on above: Performed By: #### A 1C, FT4, ANEU, GFR, LIPID, CBC, CMP, TSH, ADIFF #### [place] [address] Creatinine [Mass/Vol] 0.82 mg/dL Normal 0.51-0.95 [facility] Comment on above: Performed By: #### A 1C, FT4, ANEU, GFR, LIPID, CBC, CMP, TSH, ADIFF #### [place] [address] Electrolyte Balance 10.0 mEq/L Normal 4.0-15.0 [facility] Comment on above: Performed By: #### A 1C, FT4, ANEU, GFR, LIPID, CBC, CMP, TSH, ADIFF #### [address] [address] Globulin 3.5 G/dL Normal 2.7-4.4 [facility] Comment on above: Performed By: #### A 1C, FT4, ANEU, GFR, LIPID, CBC, CMP, TSH, ADIFF #### [address] [address] Glucose [Mass/Vol] 120 mg/dL High 83-110 [facility] Comment on above: Performed By: #### A 1C, FT4, ANEU, GFR, LIPID, CBC, CMP, TSH, ADIFF #### [place] [address] Potassium [Moles/Vol] 3.5 mmol/L Normal 3.5-5.1 [facility] Comment on above: Performed By: #### A 1C, FT4, ANEU, GFR, LIPID, CBC, CMP, TSH, ADIFF #### [address] [address] Sodium [Moles/Vol] 143 mmol/L Normal 136-145 [facility] Comment on above: Performed By: #### A 1C, FT4, ANEU, GFR, LIPID, CBC, CMP, TSH, ADIFF #### [address] [address] Total Protein 7.0 G/dL Normal 6.4-8.2 [facility] Comment on above: Performed By: #### A 1C, FT4, ANEU, GFR, LIPID, CBC, CMP, TSH, ADIFF #### [address] [address] Urea nitrogen [Mass/Vol] 11 mg/dL Normal 7-18 [facility] Comment on above: Performed By: #### A 1C, FT4, ANEU, GFR, LIPID, CBC, CMP, TSH, ADIFF #### [address] [address] FT4on 02-10-2025 Free T4 [Mass/Vol] 0.87 ng/dL Normal 0.76-1.46 [facility] Comment on above: Performed By: #### A 1C, FT4, ANEU, GFR, LIPID, CBC, CMP, TSH, ADIFF #### [address] [address] LABORATORYOrdered By: SYSTEM SYSTEM on 02-10-2025 Albumin [...] calculated value from Hemoglobin A1C and is passenger relations representative of the average blood glucose level [...] 02-10-2025 Cholesterol [Mass/Vol] 115 mg/dL Normal 0-200 [facility] Comment on above: Result Comment: Chol esterol Reference Interval: Less than 200 Desirable 200-239 Borderline high risk 240 and above High risk Performed By: #### A 1C, FT4, ANEU, GFR, LIPID, CBC, CMP, TSH, ADIFF #### [place] [address] [place], [place] [address] Cholesterol in HDL [Mass/Vol] 35 mg/dL Low 40-60 [facility] Comment on above: Performed By: #### A 1C, FT4, ANEU, GFR, LIPID, CBC, CMP, TSH, ADIFF #### [place] [address] [place], [place] [address] Cholesterol in LDL [Mass/Vol] 46 mg/dL Normal 0-130 [facility] Comment on above: Performed By: #### A 1C, FT4, ANEU, GFR, LIPID, CBC, CMP, TSH, ADIFF #### [facility] [address] [place], [place] [address] Triglyceride [Mass/Vol] 170 mg/dL High 0-150 [facility] Comment on above: Result Comment: Trig lyceride Reference Interval: Less than 150 Normal 150-199 Borderline high risk 200-499 High risk 500 or higher Very high risk Performed By: #### A 1C, FT4, ANEU, GFR, LIPID, CBC, CMP, TSH, ADIFF #### [place] [address] [place], [place] [address] TSHon 02-10-2025 TSH Qn 4.13 m[IU]/L High 0.36-3.74 [facility] Comment on above: Performed By: #### A 1C, FT4, ANEU, GFR, LIPID, CBC, CMP, TSH, ADIFF #### [place] [address] [place], [place] [address] LABORATORYOrdered By: Dhruv Cook on 01-30-2025 Glucose [Mass/Vol] 167 mg/dL High 82 - 115 mg/dL [facility] HbA1c (Bld) [Mass fraction] 6.6 % [facility] Lab Performed By Dhruv Cook PharmD [facility] Lab Performing Location [facility] LABORATORYOrdered By: Dhruv Cook on 01-02-2025 Glucose [Mass/Vol] 151 mg/dL High 82 - 115 mg/dL [facility] .Auto Diff10-21-2024 Basophil, Absolute 0.1 10 3/mcL Normal 0.0-0.2 [facility] Comment on above: Performed By: #### T SH, GFR, CBC, LIPID, A1C, ADIFF, CMP, ANEU, FT4 ####[address] [place], [place] [address] Basophils/100 WBC (Bld) 0.9 % Normal 0.0-2.5 [facility] Comment on above: Performed By: #### T SH, GFR, CBC, LIPID, A1C, ADIFF, CMP, ANEU, FT4 ####[address] [place], [place] [address] Eosinophil, Absolute 0.2 10 3/mcL Normal 0.0-0.7 [facility] Comment on above: Performed By: #### T SH, GFR, CBC, LIPID, A1C, ADIFF, CMP, ANEU, FT4 ####[address] [place], [place] [address] Eosinophils/100 WBC (Bld) 3.2 % Normal 0.0-7.0 [facility] Comment on above: Performed By: #### T SH, GFR, CBC, LIPID, A1C, ADIFF, CMP, ANEU, FT4 ####[address] [place], [place] [address] Lymphocyte, Absolute 1.3 10 3/mcL Normal 0.9-4.3 [facility] Comment on above: Performed By: #### T SH, GFR, CBC, LIPID, A1C, ADIFF, CMP, ANEU, FT4 ####[address] [place], [place] [address] Lymphocytes/100 WBC (Bld) 19.3 % Low 20.0-40.0 [facility] Comment on above: Performed By: #### T SH, GFR, CBC, LIPID, A1C, ADIFF, CMP, ANEU, FT4 ####[address] [place], [place] [address] Monocyte, Absolute 0.5 10 3/mcL Normal 0.1-1.4 [facility] Comment on above: Performed By: #### T SH, GFR, CBC, LIPID, A1C, ADIFF, CMP, ANEU, FT4 ####[address] [place], [place] [address] Monocytes/100 WBC (Bld) 7.6 % Normal 2.0-13.0 [facility] Comment on above: Performed By: #### T SH, GFR, CBC, LIPID, A1C, ADIFF, CMP, ANEU, FT4 ####[address] [place], [place] [address] Neutrophils/100 WBC (Bld) 69.0 % Normal 50.0-75.0 [facility] Comment on above: Performed By: #### T SH, GFR, CBC, LIPID, A1C, ADIFF, CMP, ANEU, FT4 ####[address] [place], [place] [address] .GFRon 10-21-2024 GFR 56 ml/min/1.73sqm [facility] Comment on above: Result Comment: GFR Population [...] GFR, LIPID, CBC, CMP, TSH, ADIFF #### [place] [address] [place], [place] [address] GFR Non- 46 ml/min/1.73sqm [facility] Comment on above: Result Comment: GFR Population [...] GFR, LIPID, CBC, CMP, TSH, ADIFF #### [address] [address] .NEUABSon 10-21-2024 Neutrophil, Absolute 4.6 10 3/mcL Normal 2.3-8.1 [facility] Comment on above: Performed By: #### T SH, GFR, CBC, LIPID, A1C, ADIFF, CMP, ANEU, FT4 ####[address] [address] A1Con 10-21-2024 Glucose [Mass/Vol] 183 mg/dL Normal [facility] Comment on above: Result Comment: Eugenia mated Average Glucose calculated by equation ((28.7xA1C)-46.7) Estimated average glucose (eAG) is a calculated value from Hemoglobin A1C and is passenger relations representative of the average blood glucose level in the last 2-3 month period. Normal range: less than 114 mg/dL Performed By: #### A 1C, FT4, ANEU, GFR, LIPID, CBC, CMP, TSH, ADIFF #### [address] [address] HbA1c (Bld) [Mass fraction] 8.0 % High 4.3-6.4 [facility] Comment on above: Performed By: #### A 1C, FT4, ANEU, GFR, LIPID, CBC, CMP, TSH, ADIFF #### [place] [address] [place], [place] [address] CBCon 10-21-2024 Erythrocyte distribution width (RBC) [Ratio] 14.2 % Normal 11.5-15.5 [facility] Comment on above: Performed By: #### T SH, GFR, CBC, LIPID, A1C, ADIFF, CMP, ANEU, FT4 ####[address] [place], [place] [address] Hematocrit (Bld) [Volume fraction] 37.8 % Normal 34.0-46.0 [facility] Comment on above: Performed By: #### T SH, GFR, CBC, LIPID, A1C, ADIFF, CMP, ANEU, FT4 ####[address] [place], [place] [address] Hgb 12.2 G/dL Normal 12.0-16.0 [facility] Comment on above: Performed By: #### T SH, GFR, CBC, LIPID, A1C, ADIFF, CMP, ANEU, FT4 ####[address] [place] [id number] MCH (RBC) [Entitic mass] 30.7 pg Normal 27.0-33.0 [facility] Comment on above: Performed By: #### T SH, GFR, CBC, LIPID, A1C, ADIFF, CMP, ANEU, FT4 ####[address] [place], [place] [address] MCHC 32.2 G/dL Normal 32.0-36.0 [facility] Comment on above: Performed By: #### T SH, GFR, CBC, LIPID, A1C, ADIFF, CMP, ANEU, FT4 ####[place] [address] [place], [place] [address] MCV (RBC) [Entitic vol] 95.2 fL Normal 80.0-99.0 [facility] Comment on above: Performed By: #### T SH, GFR, CBC, LIPID, A1C, ADIFF, CMP, ANEU, FT4 ####[place] [address] [place], [place] [address] Platelet 216 10 3/mcL Normal 150-450 [facility] Comment on above: Performed By: #### T SH, GFR, CBC, LIPID, A1C, ADIFF, CMP, ANEU, FT4 ####[address] [place] [id number] Platelet mean volume (Bld) [Entitic vol] 7.6 fL Normal 6.6-10.5 [facility] Comment on above: Performed By: #### T SH, GFR, CBC, LIPID, A1C, ADIFF, CMP, ANEU, FT4 ####[place] [address] [place], [place] [address] RBC 3.96 10 6/mcL Low 4.10-5.30 [facility] Comment on above: Performed By: #### T SH, GFR, CBC, LIPID, A1C, ADIFF, CMP, ANEU, FT4 ####[address] [place], [place] [address] WBC 6.6 10 3/mcL Normal 4.5-10.8 [facility] Comment on above: Performed By: #### T SH, GFR, CBC, LIPID, A1C, ADIFF, CMP, ANEU, FT4 ####[address] [address] CMPon 10-21-2024 Albumin Level 3.4 G/dL Normal 3.4-4.8 [facility] Comment on above: Performed By: #### A 1C, FT4, ANEU, GFR, LIPID, CBC, CMP, TSH, ADIFF #### [address] [address] Albumin/Globulin [Mass ratio] 1.1 {ratio} Normal 1.1-2.5 [facility] Comment on above: Performed By: #### A 1C, FT4, ANEU, GFR, LIPID, CBC, CMP, TSH, ADIFF #### [address] [address] ALP [Catalytic activity/Vol] 71 U/L Normal 40-135 [facility] Comment on above: Performed By: #### A 1C, FT4, ANEU, GFR, LIPID, CBC, CMP, TSH, ADIFF #### [place] [address] [place], [place] [address] ALT [Catalytic activity/Vol] 12 U/L Low 14-59 [facility] Comment on above: Performed By: #### A 1C, FT4, ANEU, GFR, LIPID, CBC, CMP, TSH, ADIFF #### [address] [address] AST [Catalytic activity/Vol] 18 U/L Normal 10-40 [facility] Comment on above: Performed By: #### A 1C, FT4, ANEU, GFR, LIPID, CBC, CMP, TSH, ADIFF #### [address] [address] Bili Total 0.5 mg/dL Normal 0.2-1.0 [facility] Comment on above: Result Comment: Use of this assay is not recommended for patients undergoing treatment with eltrombopag due to the potential for falsely elevated results. Performed By: #### A 1C, FT4, ANEU, GFR, LIPID, CBC, CMP, TSH, ADIFF #### [address] [address] BUN/Creatinine Ratio 16 ratio Normal 7-27 [facility] Comment on above: Performed By: #### A 1C, FT4, ANEU, GFR, LIPID, CBC, CMP, TSH, ADIFF #### [address] [address] Calcium [Mass/Vol] 9.0 mg/dL Normal 8.4-10.2 [facility] Comment on above: Performed By: #### A 1C, FT4, ANEU, GFR, LIPID, CBC, CMP, TSH, ADIFF #### [address] [address] Chloride [Moles/Vol] 106 mmol/L Normal 98-107 [facility] Comment on above: Performed By: #### A 1C, FT4, ANEU, GFR, LIPID, CBC, CMP, TSH, ADIFF #### [address] [address] CO2 [Moles/Vol] 26 mmol/L Normal 23-31 [facility] Comment on above: Performed By: #### A 1C, FT4, ANEU, GFR, LIPID, CBC, CMP, TSH, ADIFF #### [address] [address] Creatinine [Mass/Vol] 1.13 mg/dL High 0.55-1.02 [facility] Comment on above: Result Comment: Test ing performed on Siemens Dimension EXL analyzer using a modified kinetic Eusebio technique. Performed By: #### A 1C, FT4, ANEU, GFR, LIPID, CBC, CMP, TSH, ADIFF #### [address] [address] Electrolyte Balance 11.0 mEq/L Normal 4.0-15.0 [facility] Comment on above: Performed By: #### A 1C, FT4, ANEU, GFR, LIPID, CBC, CMP, TSH, ADIFF #### [address] [address] Globulin 3.0 G/dL Normal [facility] Comment on above: Performed By: #### A 1C, FT4, ANEU, GFR, LIPID, CBC, CMP, TSH, ADIFF #### [address] [address] Glucose [Mass/Vol] 162 mg/dL High 83-110 [facility] Comment on above: Performed By: #### A 1C, FT4, ANEU, GFR, LIPID, CBC, CMP, TSH, ADIFF #### [address] [address] Potassium [Moles/Vol] 4.0 mmol/L Normal 3.5-5.1 [facility] Comment on above: Performed By: #### A 1C, FT4, ANEU, GFR, LIPID, CBC, CMP, TSH, ADIFF #### [address] [address] Sodium [Moles/Vol] 143 mmol/L Normal 136-145 [facility] Comment on above: Performed By: #### A 1C, FT4, ANEU, GFR, LIPID, CBC, CMP, TSH, ADIFF #### [address] [address] Total Protein 6.4 G/dL Normal 6.4-8.2 [facility] Comment on above: Performed By: #### A 1C, FT4, ANEU, GFR, LIPID, CBC, CMP, TSH, ADIFF #### [address] [address] Urea nitrogen [Mass/Vol] 18 mg/dL Normal 7-18 [facility] Comment on above: Performed By: #### A 1C, FT4, ANEU, GFR, LIPID, CBC, CMP, TSH, ADIFF #### [place] [address] [place], [place] [address] FT4on 10-21-2024 Free T4 [Mass/Vol] 0.97 ng/dL Normal 0.76-1.46 [facility] Comment on above: Performed By: #### A 1C, FT4, ANEU, GFR, LIPID, CBC, CMP, TSH, ADIFF #### [place] [address] LABORATORYOrdered By: SYSTEM SYSTEM on 10-21-2024 Albumin [...] calculated value from Hemoglobin A1C and is passenger relations representative of the average blood glucose level [...] 10-21-2024 Cholesterol [Mass/Vol] 149 mg/dL Normal 0-200 [facility] Comment on above: Result Comment: Chol esterol Reference Interval: Less than 200 Desirable 200-239 Borderline high risk 240 and above High risk Performed By: #### A 1C, FT4, ANEU, GFR, LIPID, CBC, CMP, TSH, ADIFF #### [address] [address] Cholesterol in HDL [Mass/Vol] 38 mg/dL Low 40-60 [facility] Comment on above: Performed By: #### A 1C, FT4, ANEU, GFR, LIPID, CBC, CMP, TSH, ADIFF #### [place] [address] [place], [place] [address] Cholesterol in LDL [Mass/Vol] 75 mg/dL Normal 0-130 [facility] Comment on above: Performed By: #### A 1C, FT4, ANEU, GFR, LIPID, CBC, CMP, TSH, ADIFF #### [place] [address] [place], [place] [address] Triglyceride [Mass/Vol] 181 mg/dL High 0-150 [facility] Comment on above: Result Comment: Trig lyceride Reference Interval: Less than 150 Normal 150-199 Borderline high risk 200-499 High risk 500 or higher Very high risk Performed By: #### A 1C, FT4, ANEU, GFR, LIPID, CBC, CMP, TSH, ADIFF #### [place] [address] [place], [place] [address] TSHon 10-21-2024 TSH Qn 1.72 m[IU]/L Normal 0.36-3.74 [facility] Comment on above: Performed By: #### A 1C, FT4, ANEU, GFR, LIPID, CBC, CMP, TSH, ADIFF #### [address] [address] LABORATORYOrdered By: SYSTEM SYSTEM on 07-10-2024 Albumin [...] calculated value from Hemoglobin A1C and is passenger relations representative of the average blood glucose level [...] risk .GFRon 04-03-2024 GFR 60 ml/min/1.73sqm Normal [facility] ([place]) Comment on above: Result Comment: GFR Population [...] FR, A1C, CMP, LIPID, TSH #### [address] [place] [address] GFR Non- 50 ml/min/1.73sqm Normal [facility] ([place]) Comment on above: Result Comment: GFR Population [...] G FR, A1C, CMP, LIPID, TSH #### [address] [address] A1Con 04-03-2024 HbA1c (Bld) [Mass fraction] 7.9 % High 4.3-6.4 [facility] ([place]) Comment on above: Performed By: #### G FR, A1C, CMP, LIPID, TSH #### [address] [address] CMPon 04-03-2024 Albumin Level 3.6 G/dL Normal 3.4-4.8 [facility] ([place]) Comment on above: Performed By: #### G FR, A1C, CMP, LIPID, TSH #### [address] [address] Albumin/Globulin [Mass ratio] 1.1 {ratio} Normal 1.1-2.5 [facility] ([place]) Comment on above: Performed By: #### G FR, A1C, CMP, LIPID, TSH #### [address] [address] ALP [Catalytic activity/Vol] 101 U/L Normal 40-135 [facility] ([place]) Comment on above: Performed By: #### G FR, A1C, CMP, LIPID, TSH #### [address] [address] ALT [Catalytic activity/Vol] 36 U/L Normal 14-59 [facility] ([place]) Comment on above: Performed By: #### G FR, A1C, CMP, LIPID, TSH #### [address] [address] AST [Catalytic activity/Vol] 18 U/L Normal 10-40 [facility] ([place]) Comment on above: Performed By: #### G FR, A1C, CMP, LIPID, TSH #### [address] [address] Bili Total 0.6 mg/dL Normal 0.2-1.0 [facility] ([place]) Comment on above: Result Comment: Use of this assay is not recommended for patients undergoing treatment with eltrombopag due to the potential for falsely elevated results. Performed By: #### G FR, A1C, CMP, LIPID, TSH #### [address] [address] BUN/Creatinine Ratio 16 ratio Normal 7-27 [facility] ([place]) Comment on above: Performed By: #### G FR, A1C, CMP, LIPID, TSH #### [address] [address] Calcium [Mass/Vol] 8.8 mg/dL Normal 8.4-10.2 [facility] ([place]) Comment on above: Performed By: #### G FR, A1C, CMP, LIPID, TSH #### [address] [address] Chloride [Moles/Vol] 104 mmol/L Normal 98-107 [facility] ([place]) Comment on above: Performed By: #### G FR, A1C, CMP, LIPID, TSH #### [address] [address] CO2 [Moles/Vol] 31 mmol/L Normal 23-31 [facility] ([place]) Comment on above: Performed By: #### G FR, A1C, CMP, LIPID, TSH #### [address] [address] Creatinine [Mass/Vol] 1.06 mg/dL High 0.55-1.02 [facility] ([place]) Comment on above: Performed By: #### G FR, A1C, CMP, LIPID, TSH #### [address] [address] Electrolyte Balance 8.0 mEq/L Normal 4.0-15.0 [facility] ([place]) Comment on above: Performed By: #### G FR, A1C, CMP, LIPID, TSH #### [address] [address] Globulin 3.2 G/dL Normal [facility] ([place]) Comment on above: Performed By: #### G FR, A1C, CMP, LIPID, TSH #### [address] [address] Glucose [Mass/Vol] 167 mg/dL High 83-110 [facility] ([place]) Comment on above: Performed By: #### G FR, A1C, CMP, LIPID, TSH #### [address] [address] Potassium [Moles/Vol] 4.5 mmol/L Normal 3.5-5.1 [facility] ([place]) Comment on above: Performed By: #### G FR, A1C, CMP, LIPID, TSH #### [address] [address] Sodium [Moles/Vol] 143 mmol/L Normal 136-145 [facility] ([place]) Comment on above: Performed By: #### G FR, A1C, CMP, LIPID, TSH #### [address] [address] Total Protein 6.8 G/dL Normal 6.4-8.2 [facility] ([place]) Comment on above: Performed By: #### G FR, A1C, CMP, LIPID, TSH #### [address] [address] Urea nitrogen [Mass/Vol] 17 mg/dL Normal 7-18 [facility] ([place]) Comment on above: Performed By: #### G FR, A1C, CMP, LIPID, TSH #### [address] [address] LABORATORYOrdered By: SYSTEM SYSTEM on 04-03-2024 Albumin [...] 04-03-2024 Cholesterol [Mass/Vol] 167 mg/dL Normal 0-200 [facility] ([place]) Comment on above: Result Comment: Chol esterol Reference Interval: Less than 200 Desirable 200-239 Borderline high risk 240 and above High risk Performed By: #### G FR, A1C, CMP, LIPID, TSH #### [address] [address] Cholesterol in HDL [Mass/Vol] 40 mg/dL Normal 40-60 [facility] ([place]) Comment on above: Performed By: #### G FR, A1C, CMP, LIPID, TSH #### [address] [address] Cholesterol in LDL [Mass/Vol] 77 mg/dL Normal 0-130 [facility] ([place]) Comment on above: Performed By: #### G FR, A1C, CMP, LIPID, TSH #### [address] [address] Triglyceride [Mass/Vol] 251 mg/dL High 0-150 [facility] ([place]) Comment on above: Result Comment: Trig lyceride Reference Interval: Less than 150 Normal 150-199 Borderline high risk 200-499 High risk 500 or higher Very high risk Performed By: #### G FR, A1C, CMP, LIPID, TSH #### [address] [address] TSHon 04-03-2024 TSH Qn 2.17 m[IU]/L Normal 0.36-3.74 [facility] ([place]) Comment on above: Performed By: #### G FR, A1C, CMP, LIPID, TSH #### [address] [address] .Auto Diffon 01-10-2024 Basophil, Absolute 0.1 10 3/mcL Normal 0.0-0.2 [facility] ([place]) Comment on above: Performed By: #### G FR, A1C, CMP, LIPID, TSH #### [address] [address] Basophils/100 WBC (Bld) 1.0 % Normal 0.0-2.5 [facility] ([place]) Comment on above: Performed By: #### G FR, A1C, CMP, LIPID, TSH #### [address] [address] Eosinophil, Absolute 0.4 10 3/mcL Normal 0.0-0.4 [facility] ([place]) Comment on above: Performed By: #### G FR, A1C, CMP, LIPID, TSH #### [address] [address] Eosinophils/100 WBC (Bld) 6.6 % Normal 0.0-7.0 [facility] ([place]) Comment on above: Performed By: #### G FR, A1C, CMP, LIPID, TSH #### [address] [address] Lymphocyte, Absolute 1.1 10 3/mcL Normal 0.8-3.9 [facility] ([place]) Comment on above: Performed By: #### G FR, A1C, CMP, LIPID, TSH #### [address] [address] Lymphocytes/100 WBC (Bld) 18.4 % Normal 10.0-50.0 [facility] ([place]) Comment on above: Performed By: #### G FR, A1C, CMP, LIPID, TSH #### [address] [address] Monocyte, Absolute 0.5 10 3/mcL Normal 0.2-1.0 [facility] ([place]) Comment on above: Performed By: #### G FR, A1C, CMP, LIPID, TSH #### [address] [address] Monocytes/100 WBC (Bld) 8.4 % Normal 1.7-13.0 [facility] ([place]) Comment on above: Performed By: #### G FR, A1C, CMP, LIPID, TSH #### [address] [address] Neutrophils/100 WBC (Bld) 65.6 % Normal 37.0-80.0 [facility] ([place]) Comment on above: Performed By: #### G FR, A1C, CMP, LIPID, TSH #### [address] [address] .GFRon 01-10-2024 GFR 57 ml/min/1.73sqm Normal [facility] ([place]) Comment on above: Result Comment: GFR Population [...] G FR, A1C, CMP, LIPID, TSH #### [address] [address] GFR Non- 47 ml/min/1.73sqm Normal [facility] ([place]) Comment on above: Result Comment: GFR Population [...] FR, A1C, CMP, LIPID, TSH #### [address]ali [address] [address] .NEUABSon 01-10-2024 Neutrophil, Absolute 3.9 10 3/mcL Normal 2.9-6.2 [facility] ([place]) Comment on above: Performed By: #### G FR, A1C, CMP, LIPID, TSH #### [address] [address] A1Con 01-10-2024 HbA1c (Bld) [Mass fraction] 8.0 % High 4.3-6.4 [facility] ([place]) Comment on above: Performed By: #### G FR, A1C, CMP, LIPID, TSH #### [place] [id number] CBCon 01-10-2024 Erythrocyte distribution width (RBC) [Ratio] 15.8 % High 11.5-14.5 [facility] ([place]) Comment on above: Performed By: #### G FR, A1C, CMP, LIPID, TSH #### [place] [address] Hematocrit (Bld) [Volume fraction] 33.2 % Low 37.0-47.0 [facility] ([place]) Comment on above: Performed By: #### G FR, A1C, CMP, LIPID, TSH #### [place] [id number] Hgb 10.9 G/dL Low 12.0-16.0 [facility] ([place]) Comment on above: Performed By: #### G FR, A1C, CMP, LIPID, TSH #### [place] [address] MCH (RBC) [Entitic mass] 29.8 pg Normal 27.0-31.2 [facility] ([place]) Comment on above: Performed By: #### G FR, A1C, CMP, LIPID, TSH #### [place] [address] MCHC 32.8 G/dL Low 33.0-37.0 [facility] ([place]) Comment on above: Performed By: #### G FR, A1C, CMP, LIPID, TSH #### [place] [address] MCV (RBC) [Entitic vol] 90.8 fL Normal 80.0-94.0 [facility] ([place]) Comment on above: Performed By: #### G FR, A1C, CMP, LIPID, TSH #### [address] [address] Platelet 202 10 3/mcL Normal 130-400 [facility] ([place]) Comment on above: Performed By: #### G FR, A1C, CMP, LIPID, TSH #### [address]ali [address] [address] Platelet mean volume (Bld) [Entitic vol] 7.6 fL Normal 7.4-10.4 [facility] ([place]) Comment on above: Performed By: #### G FR, A1C, CMP, LIPID, TSH #### [address] [address] RBC 3.65 10 6/mcL Low 4.20-5.40 [facility] ([place]) Comment on above: Performed By: #### G FR, A1C, CMP, LIPID, TSH #### [address] [address] WBC 5.9 10 3/mcL Normal 4.6-10.8 [facility] ([place]) Comment on above: Performed By: #### G FR, A1C, CMP, LIPID, TSH #### [address] [address] CMPon 01-10-2024 Albumin Level 3.5 G/dL Normal 3.4-4.8 [facility] ([place]) Comment on above: Performed By: #### G FR, A1C, CMP, LIPID, TSH #### [address] [address] Albumin/Globulin [Mass ratio] 1.0 {ratio} Low 1.1-2.5 [facility] ([place]) Comment on above: Performed By: #### G FR, A1C, CMP, LIPID, TSH #### [address] [address] ALP [Catalytic activity/Vol] 101 U/L Normal 40-135 [facility] ([place]) Comment on above: Performed By: #### G FR, A1C, CMP, LIPID, TSH #### [address] [address] ALT [Catalytic activity/Vol] 21 U/L Normal 14-59 [facility] ([place]) Comment on above: Performed By: #### G FR, A1C, CMP, LIPID, TSH #### [address] [address] AST [Catalytic activity/Vol] 17 U/L Normal 10-40 [facility] ([place]) Comment on above: Performed By: #### G FR, A1C, CMP, LIPID, TSH #### [address] [address] Bili Total 0.6 mg/dL Normal 0.2-1.0 [facility] ([place]) Comment on above: Result Comment: Use of this assay is not recommended for patients undergoing treatment with eltrombopag due to the potential for falsely elevated results. Performed By: #### G FR, A1C, CMP, LIPID, TSH #### [address] [address] BUN/Creatinine Ratio 18 ratio Normal 7-27 [facility] ([place]) Comment on above: Performed By: #### G FR, A1C, CMP, LIPID, TSH #### [address] [address] Calcium [Mass/Vol] 8.8 mg/dL Normal 8.4-10.2 [facility] ([place]) Comment on above: Performed By: #### G FR, A1C, CMP, LIPID, TSH #### [address] [address] Chloride [Moles/Vol] 103 mmol/L Normal 98-107 [facility] ([place]) Comment on above: Performed By: #### G FR, A1C, CMP, LIPID, TSH #### [address] [address] CO2 [Moles/Vol] 26 mmol/L Normal 23-31 [facility] ([place]) Comment on above: Performed By: #### G FR, A1C, CMP, LIPID, TSH #### [address] [address] Creatinine [Mass/Vol] 1.11 mg/dL High 0.55-1.02 [facility] ([place]) Comment on above: Performed By: #### G FR, A1C, CMP, LIPID, TSH #### [address] [address] Electrolyte Balance 11.0 mEq/L Normal 4.0-15.0 [facility] [facility] ([place]) Comment on above: Performed By: #### G FR, A1C, CMP, LIPID, TSH #### [address] [address] Globulin 3.4 G/dL Normal [facility] ([place]) Comment on above: Performed By: #### G FR, A1C, CMP, LIPID, TSH #### [address] [address] Glucose [Mass/Vol] 163 mg/dL High 83-110 [facility] ([place]) Comment on above: Performed By: #### G FR, A1C, CMP, LIPID, TSH #### [address] [address] Potassium [Moles/Vol] 3.9 mmol/L Normal 3.5-5.1 [facility] ([place]) Comment on above: Performed By: #### G FR, A1C, CMP, LIPID, TSH #### [address] [address] Sodium [Moles/Vol] 140 mmol/L Normal 136-145 [facility] ([place]) Comment on above: Performed By: #### G FR, A1C, CMP, LIPID, TSH #### [address] [address] Total Protein 6.9 G/dL Normal 6.4-8.2 [facility] ([place]) Comment on above: Performed By: #### G FR, A1C, CMP, LIPID, TSH #### [address] [address] Urea nitrogen [Mass/Vol] 20 mg/dL High 7-18 [facility] ([place]) Comment on above: Performed By: #### G FR, A1C, CMP, LIPID, TSH #### [address] [place], [place] [address] FT4on 01-10-2024 Free T4 [Mass/Vol] 0.87 ng/dL Normal 0.76-1.46 [facility] ([place]) Comment on above: Performed By: #### G FR, A1C, CMP, LIPID, TSH #### [place] [id number] [place], [place] [address] LABORATORYOrdered By: SYSTEM SYSTEM on 01-10-2024 Albumin [...] 01-10-2024 Cholesterol [Mass/Vol] 165 mg/dL Normal 0-200 [facility] ([place]) Comment on above: Result Comment: Chol esterol Reference Interval: Less than 200 Desirable 200-239 Borderline high risk 240 and above High risk Performed By: #### G FR, A1C, CMP, LIPID, TSH #### [address] [address] Cholesterol in HDL [Mass/Vol] 39 mg/dL Low 40-60 [facility] ([place]) Comment on above: Performed By: #### G FR, A1C, CMP, LIPID, TSH #### [address] [address] Cholesterol in LDL [Mass/Vol] 86 mg/dL Normal 0-130 [facility] ([place]) Comment on above: Performed By: #### G FR, A1C, CMP, LIPID, TSH #### [address] [address] Triglyceride [Mass/Vol] 202 mg/dL High 0-150 [facility] ([place]) Comment on above: Result Comment: Trig lyceride Reference Interval: Less than 150 Normal 150-199 Borderline high risk 200-499 High risk 500 or higher Very high risk Performed By: #### G FR, A1C, CMP, LIPID, TSH #### [address] [address] TSHon 01-10-2024 TSH Qn 2.46 m[IU]/L Normal 0.36-3.74 [facility] ([place]) Comment on above: Performed By: #### G FR, A1C, CMP, LIPID, TSH #### [address] [address] .Auto Diffon 09-18-2023 Basophil, Absolute 0.0 10 3/mcL Normal 0.0-0.2 [facility] ([place]) Comment on above: Performed By: #### T SH, ANEU, CBC, ADIFF, A1C, GFR, CMP, URIC, FT4, LIPID #### [address] [address] Basophils/100 WBC (Bld) 0.9 % Normal 0.0-2.5 [facility] ([place]) Comment on above: Performed By: #### T SH, ANEU, CBC, ADIFF, A1C, GFR, CMP, URIC, FT4, LIPID #### [address] [address] Eosinophil, Absolute 0.2 10 3/mcL Normal 0.0-0.4 [facility] ([place]) Comment on above: Performed By: #### T SH, ANEU, CBC, ADIFF, A1C, GFR, CMP, URIC, FT4, LIPID #### [address] [address] Eosinophils/100 WBC (Bld) 3.7 % Normal 0.0-7.0 [facility] ([place]) Comment on above: Performed By: #### T SH, ANEU, CBC, ADIFF, A1C, GFR, CMP, URIC, FT4, LIPID #### [address] [address] Lymphocyte, Absolute 1.6 10 3/mcL Normal 0.8-3.9 [facility] ([place]) Comment on above: Performed By: #### T SH, ANEU, CBC, ADIFF, A1C, GFR, CMP, URIC, FT4, LIPID #### [address] [address] Lymphocytes/100 WBC (Bld) 28.6 % Normal 10.0-50.0 [facility] ([place]) Comment on above: Performed By: #### T SH, ANEU, CBC, ADIFF, A1C, GFR, CMP, URIC, FT4, LIPID #### [address] [address] Monocyte, Absolute 0.4 10 3/mcL Normal 0.2-1.0 [facility] ([place]) Comment on above: Performed By: #### T SH, ANEU, CBC, ADIFF, A1C, GFR, CMP, URIC, FT4, LIPID #### [address] [address] Monocytes/100 WBC (Bld) 7.9 % Normal 1.7-13.0 [facility] ([place]) Comment on above: Performed By: #### T SH, ANEU, CBC, ADIFF, A1C, GFR, CMP, URIC, FT4, LIPID #### [address] [address] Neutrophils/100 WBC (Bld) 58.9 % Normal 37.0-80.0 [facility] ([place]) Comment on above: Performed By: #### T SH, ANEU, CBC, ADIFF, A1C, GFR, CMP, URIC, FT4, LIPID #### [address] [address] .GFRon 09-18-2023 GFR 52 ml/min/1.73sqm Normal [facility] ([place]) Comment on above: Result Comment: GFR Population [...] G FR, A1C, CMP, LIPID, TSH #### [address] [address] GFR Non- 43 ml/min/1.73sqm Normal [facility] ([place]) Comment on above: Result Comment: GFR Population [...] G FR, A1C, CMP, LIPID, TSH #### [address] [address] .NEUABSon 09-18-2023 Neutrophil, Absolute 3.3 10 3/mcL Normal 2.9-6.2 [facility] ([place]) Comment on above: Performed By: #### T SH, ANEU, CBC, ADIFF, A1C, GFR, CMP, URIC, FT4, LIPID #### [address] [address] A1Con 09-18-2023 HbA1c (Bld) [Mass fraction] 7.5 % High 4.3-6.4 [facility] ([place]) Comment on above: Performed By: #### G FR, A1C, CMP, LIPID, TSH #### [address] [address] CBCon 09-18-2023 Erythrocyte distribution width (RBC) [Ratio] 14.7 % High 11.5-14.5 [facility] ([place]) Comment on above: Performed By: #### T SH, ANEU, CBC, ADIFF, A1C, GFR, CMP, URIC, FT4, LIPID #### [address] [address] Hematocrit (Bld) [Volume fraction] 34.5 % Low 37.0-47.0 [facility] ([place]) Comment on above: Performed By: #### T SH, ANEU, CBC, ADIFF, A1C, GFR, CMP, URIC, FT4, LIPID #### [address] [address] Hgb 11.2 G/dL Low 12.0-16.0 [facility] ([place]) Comment on above: Performed By: #### T SH, ANEU, CBC, ADIFF, A1C, GFR, CMP, URIC, FT4, LIPID #### [address] [address] MCH (RBC) [Entitic mass] 30.3 pg Normal 27.0-31.2 [facility] ([place]) Comment on above: Performed By: #### T SH, ANEU, CBC, ADIFF, A1C, GFR, CMP, URIC, FT4, LIPID #### [address] [address] MCHC 32.6 G/dL Low 33.0-37.0 [facility] ([place]) Comment on above: Performed By: #### T SH, ANEU, CBC, ADIFF, A1C, GFR, CMP, URIC, FT4, LIPID #### [address] [address] MCV (RBC) [Entitic vol] 93.1 fL Normal 80.0-94.0 [facility] ([place]) Comment on above: Performed By: #### T SH, ANEU, CBC, ADIFF, A1C, GFR, CMP, URIC, FT4, LIPID #### [address] [address] Platelet 202 10 3/mcL Normal 130-400 [facility] ([place]) Comment on above: Performed By: #### T SH, ANEU, CBC, ADIFF, A1C, GFR, CMP, URIC, FT4, LIPID #### [address] [address] Platelet mean volume (Bld) [Entitic vol] 7.6 fL Normal 7.4-10.4 [facility] ([place]) Comment on above: Performed By: #### T SH, ANEU, CBC, ADIFF, A1C, GFR, CMP, URIC, FT4, LIPID #### [address] [address] RBC 3.70 10 6/mcL Low 4.20-5.40 [facility] ([place]) Comment on above: Performed By: #### T SH, ANEU, CBC, ADIFF, A1C, GFR, CMP, URIC, FT4, LIPID #### [address] [address] WBC 5.6 10 3/mcL Normal 4.6-10.8 [facility] ([place]) Comment on above: Performed By: #### T SH, ANEU, CBC, ADIFF, A1C, GFR, CMP, URIC, FT4, LIPID #### [address] [address] CMPon 09-18-2023 Albumin Level 3.7 G/dL Normal 3.4-4.8 [facility] ([place]) Comment on above: Performed By: #### G FR, A1C, CMP, LIPID, TSH #### [address] [address] Albumin/Globulin [Mass ratio] 1.2 {ratio} Normal 1.1-2.5 [facility] ([place]) Comment on above: Performed By: #### G FR, A1C, CMP, LIPID, TSH #### [address] [address] ALP [Catalytic activity/Vol] 91 U/L Normal 40-135 [facility] ([place]) Comment on above: Performed By: #### G FR, A1C, CMP, LIPID, TSH #### [address] [address] ALT [Catalytic activity/Vol] 15 U/L Normal 14-59 [facility] ([place]) Comment on above: Performed By: #### G FR, A1C, CMP, LIPID, TSH #### [address] [address] AST [Catalytic activity/Vol] 19 U/L Normal 10-40 [facility] ([place]) Comment on above: Performed By: #### G FR, A1C, CMP, LIPID, TSH #### [address] [address] Bili Total 0.3 mg/dL Normal 0.2-1.0 [facility] ([place]) Comment on above: Result Comment: Use of this assay is not recommended for patients undergoing treatment with eltrombopag due to the potential for falsely elevated results. Performed By: #### G FR, A1C, CMP, LIPID, TSH #### [address] [address] BUN/Creatinine Ratio 13 ratio Normal 7-27 [facility] ([place]) Comment on above: Performed By: #### G FR, A1C, CMP, LIPID, TSH #### [address] [address] Calcium [Mass/Vol] 9.4 mg/dL Normal 8.4-10.2 [facility] ([place]) Comment on above: Performed By: #### G FR, A1C, CMP, LIPID, TSH #### [address] [address] Chloride [Moles/Vol] 105 mmol/L Normal 98-107 [facility] ([place]) Comment on above: Performed By: #### G FR, A1C, CMP, LIPID, TSH #### [address] [address] CO2 [Moles/Vol] 27 mmol/L Normal 23-31 [facility] ([place]) Comment on above: Performed By: #### G FR, A1C, CMP, LIPID, TSH #### [address] [address] Creatinine [Mass/Vol] 1.21 mg/dL High 0.55-1.02 [facility] ([place]) Comment on above: Performed By: #### G FR, A1C, CMP, LIPID, TSH #### [address] [address] Electrolyte Balance 11.0 mEq/L Normal 4.0-15.0 [facility] ([place]) Comment on above: Performed By: #### G FR, A1C, CMP, LIPID, TSH #### [address] [address] Globulin 3.1 G/dL Normal [facility] ([place]) Comment on above: Performed By: #### G FR, A1C, CMP, LIPID, TSH #### [place] [phone] Glucose [Mass/Vol] 150 mg/dL High 83-110 [facility] ([place]) Comment on above: Performed By: #### G FR, A1C, CMP, LIPID, TSH #### [place] [phone] Potassium [Moles/Vol] 3.9 mmol/L Normal 3.5-5.1 [facility] ([place]) Comment on above: Performed By: #### G FR, A1C, CMP, LIPID, TSH #### [place] [phone] Sodium [Moles/Vol] 143 mmol/L Normal 136-145 [facility] ([place]) Comment on above: Performed By: #### G FR, A1C, CMP, LIPID, TSH #### [address] [address] Total Protein 6.8 G/dL Normal 6.4-8.2 [facility] ([place]) Comment on above: Performed By: #### G FR, A1C, CMP, LIPID, TSH #### [place] [phone] Urea nitrogen [Mass/Vol] 16 mg/dL Normal 7-18 [facility] ([place]) Comment on above: Performed By: #### G FR, A1C, CMP, LIPID, TSH #### [place] [id number] FT4on 09-18-2023 Free T4 [Mass/Vol] 0.93 ng/dL Normal 0.76-1.46 [facility] ([place]) Comment on above: Performed By: #### T SH, ANEU, CBC, ADIFF, A1C, GFR, CMP, URIC, FT4, LIPID #### [place] [address] [place], [place] [address] LABORATORYOrdered By: SYSTEM SYSTEM on 09-18-2023 Albumin [...] 09-18-2023 Cholesterol [Mass/Vol] 156 mg/dL Normal 0-200 [facility] ([place]) Comment on above: Result Comment: Chol esterol Reference Interval: Less than 200 Desirable 200-239 Borderline high risk 240 and above High risk Performed By: #### G FR, A1C, CMP, LIPID, TSH #### [address] [address] Cholesterol in HDL [Mass/Vol] 45 mg/dL Normal 40-60 [facility] ([place]) Comment on above: Performed By: #### G FR, A1C, CMP, LIPID, TSH #### [address] [address] Cholesterol in LDL [Mass/Vol] 74 mg/dL Normal 0-130 [facility] ([place]) Comment on above: Performed By: #### G FR, A1C, CMP, LIPID, TSH #### [address] [address] Triglyceride [Mass/Vol] 184 mg/dL High 0-150 [facility] ([place]) Comment on above: Result Comment: Trig lyceride Reference Interval: Less than 150 Normal 150-199 Borderline high risk 200-499 High risk 500 or higher Very high risk Performed By: #### G FR, A1C, CMP, LIPID, TSH #### [address] [address] TSHon 09-18-2023 TSH Qn 0.78 m[IU]/L Normal 0.36-3.74 [facility] ([place]) Comment on above: Performed By: #### T SH, ANEU, CBC, ADIFF, A1C, GFR, CMP, URIC, FT4, LIPID #### [place] [address] URICon 09-18-2023 Uric Acid Lvl 4.8 mg/dL Normal 2.6-6.2 [facility] ([place]) Comment on above: Performed By: #### G FR, A1C, CMP, LIPID, TSH #### [address] [address] .GFRon 09-11-2023 GFR 57 ml/min/1.73sqm Normal [facility] ([place]) Comment on above: Result Comment: GFR Population [...] G FR, A1C, CMP, LIPID, TSH #### [address] [address] GFR Non- 47 ml/min/1.73sqm Normal [facility] ([place]) Comment on above: Result Comment: GFR Population [...] G FR, A1C, CMP, LIPID, TSH #### [address] [address] BMPon 09-11-2023 BUN/Creatinine Ratio 10 ratio Normal 7-27 [facility] ([place]) Comment on above: Performed By: #### G FR, A1C, CMP, LIPID, TSH #### [address] [address] Calcium [Mass/Vol] 9.2 mg/dL Normal 8.4-10.2 [facility] ([place]) Comment on above: Performed By: #### G FR, A1C, CMP, LIPID, TSH #### [address] [address] Chloride [Moles/Vol] 104 mmol/L Normal 98-107 [facility] ([place]) Comment on above: Performed By: #### G FR, A1C, CMP, LIPID, TSH #### [address] [address] CO2 [Moles/Vol] 29 mmol/L Normal 23-31 [facility] ([place]) Comment on above: Performed By: #### G FR, A1C, CMP, LIPID, TSH #### [address] [address] Creatinine [Mass/Vol] 1.12 mg/dL High 0.55-1.02 [facility] ([place]) Comment on above: Performed By: #### G FR, A1C, CMP, LIPID, TSH #### [address] [address] Electrolyte Balance 9.0 mEq/L Normal 4.0-15.0 [facility] ([place]) Comment on above: Performed By: #### G FR, A1C, CMP, LIPID, TSH #### [address] [address] Glucose [Mass/Vol] 160 mg/dL High 83-110 [facility] ([place]) Comment on above: Performed By: #### G FR, A1C, CMP, LIPID, TSH #### [address] [address] Potassium [Moles/Vol] 4.0 mmol/L Normal 3.5-5.1 [facility] ([place]) Comment on above: Performed By: #### G FR, A1C, CMP, LIPID, TSH #### [address] [address] Sodium [Moles/Vol] 142 mmol/L Normal 136-145 [facility] ([place]) Comment on above: Performed By: #### G FR, A1C, CMP, LIPID, TSH #### [address] [address] Urea nitrogen [Mass/Vol] 11 mg/dL Normal 7-18 [facility] ([place]) Comment on above: Performed By: #### G FR, A1C, CMP, LIPID, TSH #### [address] [address] .Auto Diffon 07-03-2023 Basophil, Absolute 0.0 10 3/mcL Normal 0.0-0.2 [facility] ([place]) Comment on above: Performed By: #### G FR, A1C, CMP, LIPID, TSH #### [address] [address] Basophils/100 WBC (Bld) 0.6 % Normal 0.0-2.5 [facility] ([place]) Comment on above: Performed By: #### G FR, A1C, CMP, LIPID, TSH #### [address] [address] Eosinophil, Absolute 0.3 10 3/mcL Normal 0.0-0.4 [facility] ([place]) Comment on above: Performed By: #### G FR, A1C, CMP, LIPID, TSH #### [address] [address] Eosinophils/100 WBC (Bld) 5.2 % Normal 0.0-7.0 [facility] ([place]) Comment on above: Performed By: #### G FR, A1C, CMP, LIPID, TSH #### [address] [address] Lymphocyte, Absolute 1.5 10 3/mcL Normal 0.8-3.9 [facility] ([place]) Comment on above: Performed By: #### G FR, A1C, CMP, LIPID, TSH #### [address] [address] Lymphocytes/100 WBC (Bld) 23.3 % Normal 10.0-50.0 [facility] ([place]) Comment on above: Performed By: #### G FR, A1C, CMP, LIPID, TSH #### [address] [address] Monocyte, Absolute 0.7 10 3/mcL Normal 0.2-1.0 [facility] ([place]) Comment on above: Performed By: #### G FR, A1C, CMP, LIPID, TSH #### [address] [address] Monocytes/100 WBC (Bld) 11.3 % Normal 1.7-13.0 [facility] ([place]) Comment on above: Performed By: #### G FR, A1C, CMP, LIPID, TSH #### [address] [address] Neutrophils/100 WBC (Bld) 59.6 % Normal 37.0-80.0 [facility] ([place]) Comment on above: Performed By: #### G FR, A1C, CMP, LIPID, TSH #### [address] [address] .GFRon 07-03-2023 GFR Non- 37 ml/min/1.73sqm Normal [facility] ([place]) Comment on above: Result Comment: GFR Population [...] G FR, A1C, CMP, LIPID, TSH #### [address] [address] GFR 45 ml/min/1.73sqm Normal [facility] ([place]) Comment on above: Result Comment: GFR Population [...] G FR, A1C, CMP, LIPID, TSH #### [address] [address] .NEUABSon 07-03-2023 Neutrophil, Absolute 3.8 10 3/mcL Normal 2.9-6.2 [facility] ([place]) Comment on above: Performed By: #### G FR, A1C, CMP, LIPID, TSH #### [address] [address] A1Con 07-03-2023 HbA1c (Bld) [Mass fraction] 7.3 % High 4.3-6.4 [facility] ([place]) Comment on above: Performed By: #### G FR, A1C, CMP, LIPID, TSH #### [address] [address] CBCon 07-03-2023 Erythrocyte distribution width (RBC) [Ratio] 15.3 % High 11.5-14.5 [facility] ([place]) Comment on above: Performed By: #### G FR, A1C, CMP, LIPID, TSH #### [address] [address] Hematocrit (Bld) [Volume fraction] 33.4 % Low 37.0-47.0 [facility] ([place]) Comment on above: Performed By: #### G FR, A1C, CMP, LIPID, TSH #### [place] [id number] Hgb 11.0 G/dL Low 12.0-16.0 [facility] ([place]) Comment on above: Performed By: #### G FR, A1C, CMP, LIPID, TSH #### [place] [id number] MCH (RBC) [Entitic mass] 31.0 pg Normal 27.0-31.2 [facility] ([place]) Comment on above: Performed By: #### G FR, A1C, CMP, LIPID, TSH #### [place] [id number] MCHC 33.0 G/dL Normal 33.0-37.0 [facility] ([place]) Comment on above: Performed By: #### G FR, A1C, CMP, LIPID, TSH #### [address] [address] MCV (RBC) [Entitic vol] 93.9 fL Normal 80.0-94.0 [facility] ([place]) Comment on above: Performed By: #### G FR, A1C, CMP, LIPID, TSH #### [place] [id number] Platelet 197 10 3/mcL Normal 130-400 [facility] ([place]) Comment on above: Performed By: #### G FR, A1C, CMP, LIPID, TSH #### [address] [address] Platelet mean volume (Bld) [Entitic vol] 7.5 fL Normal 7.4-10.4 [facility] ([place]) Comment on above: Performed By: #### G FR, A1C, CMP, LIPID, TSH #### [address] [address] [address] RBC 3.56 10 6/mcL Low 4.20-5.40 [facility] ([place]) Comment on above: Performed By: #### G FR, A1C, CMP, LIPID, TSH #### [address] [address] [address] WBC 6.4 10 3/mcL Normal 4.6-10.8 [facility] ([place]) Comment on above: Performed By: #### G FR, A1C, CMP, LIPID, TSH #### [address] [address] [address] CMPon 07-03-2023 Albumin Level 3.6 G/dL Normal 3.4-4.8 [facility] ([place]) Comment on above: Performed By: #### G FR, A1C, CMP, LIPID, TSH #### [address]ali [address] [address] Albumin/Globulin [Mass ratio] 1.2 {ratio} Normal 1.1-2.5 [facility] ([place]) Comment on above: Performed By: #### G FR, A1C, CMP, LIPID, TSH #### [address] [address] ALP [Catalytic activity/Vol] 87 U/L Normal 40-135 [facility] ([place]) Comment on above: Performed By: #### G FR, A1C, CMP, LIPID, TSH #### [place]ali [address] [address] ALT [Catalytic activity/Vol] 15 U/L Normal 14-59 [facility] ([place]) Comment on above: Performed By: #### G FR, A1C, CMP, LIPID, TSH #### [address] [address] AST [Catalytic activity/Vol] 16 U/L Normal 10-40 [facility] ([place]) Comment on above: Performed By: #### G FR, A1C, CMP, LIPID, TSH #### [address] [address] Bili Total 0.6 mg/dL Normal 0.2-1.0 [facility] ([place]) Comment on above: Result Comment: Use of this assay is not recommended for patients undergoing treatment with eltrombopag due to the potential for falsely elevated results. Performed By: #### G FR, A1C, CMP, LIPID, TSH #### [address] [address] BUN/Creatinine Ratio 17 ratio Normal 7-27 [facility] ([place]) Comment on above: Performed By: #### G FR, A1C, CMP, LIPID, TSH #### [address] [address] Calcium [Mass/Vol] 8.8 mg/dL Normal 8.4-10.2 [facility] ([place]) Comment on above: Performed By: #### G FR, A1C, CMP, LIPID, TSH #### [address] [address] Chloride [Moles/Vol] 102 mmol/L Normal 98-107 [facility] ([place]) Comment on above: Performed By: #### G FR, A1C, CMP, LIPID, TSH #### [address] [address] CO2 [Moles/Vol] 28 mmol/L Normal 23-31 [facility] ([place]) Comment on above: Performed By: #### G FR, A1C, CMP, LIPID, TSH #### [address] [address] Creatinine [Mass/Vol] 1.36 mg/dL High 0.55-1.02 [facility] ([place]) Comment on above: Performed By: #### G FR, A1C, CMP, LIPID, TSH #### [address] [address] Electrolyte Balance 8.0 mEq/L Normal 4.0-15.0 [facility] ([place]) Comment on above: Performed By: #### G FR, A1C, CMP, LIPID, TSH #### [address] [address] Globulin 3.1 G/dL Normal [facility] ([place]) Comment on above: Performed By: #### G FR, A1C, CMP, LIPID, TSH #### [address] [address] Glucose [Mass/Vol] 187 mg/dL High 83-110 [facility] ([place]) Comment on above: Performed By: #### G FR, A1C, CMP, LIPID, TSH #### [address] [address] Potassium [Moles/Vol] 4.3 mmol/L Normal 3.5-5.1 [facility] ([place]) Comment on above: Performed By: #### G FR, A1C, CMP, LIPID, TSH #### [address] [address] Sodium [Moles/Vol] 138 mmol/L Normal 136-145 [facility] ([place]) Comment on above: Performed By: #### G FR, A1C, CMP, LIPID, TSH #### [address] [address] Total Protein 6.7 G/dL Normal 6.4-8.2 [facility] ([place]) Comment on above: Performed By: #### G FR, A1C, CMP, LIPID, TSH #### [address] [address] Urea nitrogen [Mass/Vol] 23 mg/dL High 7-18 [facility] ([place]) Comment on above: Performed By: #### G FR, A1C, CMP, LIPID, TSH #### [address] [address] LABORATORYOrdered By: SYSTEM SYSTEM on 07-03-2023 Basophil, [...] 07-03-2023 Cholesterol [Mass/Vol] 153 mg/dL Normal 0-200 [facility] ([place]) Comment on above: Result Comment: Chol esterol Reference Interval: Less than 200 Desirable 200-239 Borderline high risk 240 and above High risk Performed By: #### G FR, A1C, CMP, LIPID, TSH #### [address] [address] Cholesterol in HDL [Mass/Vol] 34 mg/dL Low 40-60 [facility] ([place]) Comment on above: Performed By: #### G FR, A1C, CMP, LIPID, TSH #### [address] [address] Cholesterol in LDL [Mass/Vol] 50 mg/dL Normal 0-130 [facility] ([place]) Comment on above: Performed By: #### G FR, A1C, CMP, LIPID, TSH #### [address] [address] Triglyceride [Mass/Vol] 347 mg/dL High 0-150 [facility] ([place]) Comment on above: Result Comment: Trig lyceride Reference Interval: Less than 150 Normal 150-199 Borderline high risk 200-499 High risk 500 or higher Very high risk Performed By: #### G FR, A1C, CMP, LIPID, TSH #### [address] [address] TSHon 07-03-2023 TSH Qn 2.24 m[IU]/L Normal 0.36-3.74 [facility] ([place]) Comment on above: Performed By: #### G FR, A1C, CMP, LIPID, TSH #### [facility] [address] [place], [place] [address] LABORATORYOrdered By: SYSTEM SYSTEM on 03-29-2023 Albumin [...] 150 mg/dL AO ADM SS LABORATORYOrdered By: ReVera SYSTEM on 01-05-2023 Albumin BCP dye [Mass/Vol] [...] Comment on above: Performed By: #### L 500.43255, [id number] #### [facility] [address] [place], [place] [id number] Albumin/Globulin [Mass ratio] 1.2 {ratio} Normal 0.8-2.0 [facility] Comment on above: Performed By: #### L 500.45910, [id number] #### [facility] [address] [place] [address] ALK PHOS 77 U/L Normal 45-117 [facility] Comment on above: Performed By: #### L 500.38990, L500.26581 #### [facility] [address] [place] [address] ALT [Catalytic activity/Vol] 16 U/L Normal 13-61 [facility] Comment on above: Result Comment: RESU LTS MAY BE FALSELY DEPRESSED AFTER THE ADMINISTRATION OF SULFASALAZINE AND/OR SULFAPYRIDINE. Performed By: #### L 500.11013, L500.40675 #### [facility] [address] [place] [address] Anion gap [Moles/Vol] 3 mmol/L Low 5-16 [facility] Comment on above: Performed By: #### L 500.06902, L500.40605 #### [facility] [address] [place], [place] [id number] AST [Catalytic activity/Vol] 28 U/L Normal 8-34 [facility] Comment on above: Result Comment: RESU LTS MAY BE FALSELY DEPRESSED AFTER THE ADMINISTRATION OF SULFASALAZINE AND/OR SULFAPYRIDINE. Performed By: #### L 500.71764, L500.66405 #### [facility] [place] [id number] BILI TOTAL 0.50 MG/DL Normal 0.2-1.0 [facility] Comment on above: Performed By: #### L 500.54096, L500.88765 #### [facility] [address] [place] [address] Calcium [Mass/Vol] 9.8 mg/dL Normal 8.5-10.5 [facility] Comment on above: Result Comment: NOTE NEW NORMAL RANGE DUE TO REAGENT CHANGE Performed By: #### L 500.74014, L500.29505 #### [facility] [address] [place] [id number] Chloride [Moles/Vol] 104 mmol/L Normal 98-107 [facility] Comment on above: Performed By: #### L 500.96897, L500.39520 #### [facility] [address] [place] [address] CO2 [Moles/Vol] 31.0 mmol/L Normal 21-32 [facility] Comment on above: Performed By: #### L 500.43985, L500.85126 #### [facility] [place] [address] Creatinine [Mass/Vol] 1.00 mg/dL High 0.510-0.950 [facility] Comment on above: Result Comment: Mireya ents receiving either N-Acetylcysteine (NAC) or Metamizole prior to venipuncture, may have falsely depressed results. Performed By: #### L 500.17443, L500.71709 #### [facility] [address] [place] [address] Globulin (S) [Mass/Vol] 2.8 g/dL Normal 2.2-4.2 [facility] Comment on above: Performed By: #### L 500.56751, L500.62413 #### [facility] [place] [address] Glucose [Mass/Vol] 132 mg/dL High 70-100 [facility] Comment on above: Result Comment: 70-1 00- Normal Fasting; 100-125 Impaired Fasting; greater than 126 on more than one result- Diabetes. ADA guidelines. Results may be falsely elevated after the administration of Sulfapyridine. Results may be falsely depressed after the administration of Sulfasalazine. Performed By: #### L 500.06403, L500.53747 #### [facility] [address] [place] [address]9831 Potassium [Moles/Vol] 3.9 mmol/L Normal 3.5-5.1 [facility] Comment on above: Result Comment: Slig ht Hemolysis, Result may be affected. Performed By: #### L 500.28288, L500.55398 #### [facility] [address] [place] [address] 71537 Protein [Mass/Vol] 6.3 g/dL Normal 6.0-8.5 [facility] Comment on above: Performed By: #### L 500.07002, L500.22588 #### [facility] [address] [place] [address] 42574 Sodium [Moles/Vol] 138 mmol/L Normal 136-145 [facility] Comment on above: Performed By: #### L 500.84082, L500.87223 #### [facility] [address] [place] [address] 22351 Urea nitrogen [Mass/Vol] 20 mg/dL Normal 7-26 [facility] Comment on above: Performed By: #### L 500.93971, L500.88343 #### [facility] [address] [place] [address] 43948 Urea nitrogen/Creatinine [Mass ratio] 20 mg/mg Normal 15-24 [facility] Comment on above: Performed By: #### L 500.12943, L500.36667 #### [facility] [address] [place] [address] 99114 GFR ESTon 12-24-2020 IF AMER Greater than [address] [facility] Comment on above: Performed By: #### L 500.39227, L500.21588 #### [facility] [address] [place] [address] 16453 IF non-AFR AMER 54 Normal [facility] Comment on above: Performed By: #### L 500.54154, L500.69901 #### [facility] [address] [place] [address] CBCon 12-22-2020 Erythrocyte distribution width (RBC) [Ratio] 17.6 % High 11-14.5 [facility] Comment on above: Performed By: #### L 500.68168, L500.53435 #### [facility] [address] [place] [address] Hematocrit (Bld) [Volume fraction] 31.3 % Low 35.0-47.0 [facility] Comment on above: Performed By: #### L 500.27941, L500.84850 #### [facility] [address] [place] [address] Hemoglobin (Bld) [Mass/Vol] 9.5 g/dL Low 11.5-15.5 [facility] Comment on above: Performed By: #### L 500.16071, L500.19640 #### [facility] [address] [place] [address] MCHC (RBC) [Mass/Vol] 30.4 g/dL Low 32.0-36.0 [facility] Comment on above: Performed By: #### L 500.07782, L500.77011 #### [facility] [address] [place], [place] [address] MCV (RBC) [Entitic vol] 95.7 fL Normal 80.0-99.0 [facility] Comment on above: Performed By: #### L 500.95057, L500.70629 #### [facility] [address] [place] [address] 43648 Nucleated RBC/100 WBC (Bld) [Ratio] 0.0 % Normal Less than 1 [facility] Comment on above: Performed By: #### L 500.52222, L500.27605 #### [facility] [address] [place], [place] [address] Platelet mean volume (Bld) [Entitic vol] 10.3 fL Normal 9.4-12.4 [facility] Comment on above: Performed By: #### L 500.59081, L500.48469 #### [facility] [address] [place], [place] [address] PLT 148 K/CU MM Low 150-450 [facility] Comment on above: Performed By: #### L 500.61633, L500.13349 #### [facility] [address] [place], [place] [address] RBC 3.27 M/CU MM Low 3.90-5.30 [facility] Comment on above: Performed By: #### L 500.63235, L500.16561 #### [facility] [address] [place] [address] 54809 WBC 5.5 K/CUMM Normal 4.5-11.0 [facility] Comment on above: Performed By: #### L 500.40569, L500.02827 #### [facility] [address] [place] [address] 39145 PBNP TESTon 12-22-2020 Natriuretic peptide B (Bld) [...] NEW NORMAL RANGE Performed By: #### L 500.81181 #### [facility] [address] [place] [address] CBCon 12-18-2020 Erythrocyte distribution width (RBC) [Ratio] 18.0 % High 11-14.5 [facility] Comment on above: Performed By: #### L 200.85347 #### [facility] [address] [place] [address] Hematocrit (Bld) [Volume fraction] 31.7 % Low 35.0-47.0 [facility] Comment on above: Performed By: #### L 200.44601 #### [facility] [address] [place] [address] Hemoglobin (Bld) [Mass/Vol] 9.5 g/dL Low 11.5-15.5 [facility] Comment on above: Performed By: #### L 200.67306 #### [facility] [address] [place] [address] MCHC (RBC) [Mass/Vol] 30.0 g/dL Low 32.0-36.0 [facility] Comment on above: Performed By: #### L 200.76560 #### [facility] [address] [place] [address] MCV (RBC) [Entitic vol] 98.1 fL Normal 80.0-99.0 [facility] Comment on above: Performed By: #### L 200.13284 #### [facility] [address] [place] [address] Nucleated RBC/100 WBC (Bld) [Ratio] 0.0 % Normal Less than 1 [facility] Comment on above: Performed By: #### L 200.14487 #### [facility] [place] [address] Platelet mean volume (Bld) [Entitic vol] 10.4 fL Normal 9.4-12.4 [facility] Comment on above: Performed By: #### L 200.72960 #### [facility] [address] [place] [address] 78053 PLT 211 K/CU MM Normal 150-450 [facility] Comment on above: Performed By: #### L 200.92566 #### [facility] [address] [place] [address] 64293 RBC 3.23 M/CU MM Low 3.90-5.30 [facility] Comment on above: Performed By: #### L 200.86023 #### [facility] [address] [place], [place] [address] WBC 6.5 K/CUMM Normal 4.5-11.0 [facility] Comment on above: Performed By: #### L 200.20854 #### [facility] [address] [place] [address] 74375 PBNP TESTon 12-18-2020 Natriuretic peptide B (Bld) [...] NEW NORMAL RANGE Performed By: #### L 500.60812, L500.65041 #### [facility] [place] [address] BMPon 12-17-2020 Anion gap [Moles/Vol] 7 mmol/L Normal 5-16 [facility] Comment on above: Performed By: #### L 500.28498, L500.55800 #### [facility] [place] [address] Calcium [Mass/Vol] 9.5 mg/dL Normal 8.5-10.5 [facility] Comment on above: Result Comment: NOTE NEW NORMAL RANGE DUE TO REAGENT CHANGE Performed By: #### L 500.22564, L500.25372 #### [facility] [address] [place] [address] Chloride [Moles/Vol] 106 mmol/L Normal 98-107 [facility] Comment on above: Performed By: #### L 500.15049, L500.88252 #### [facility] [address] [place] [address] 43865 CO2 [Moles/Vol] 28.0 mmol/L Normal 21-32 [facility] Comment on above: Performed By: #### L 500.06254, L500.89270 #### [facility] [address] [place] [address] 30831 Creatinine [Mass/Vol] 1.01 mg/dL High 0.510-0.950 [facility] Comment on above: Result Comment: Mireya ents receiving either N-Acetylcysteine (NAC) or Metamizole prior to venipuncture, may have falsely depressed results. Performed By: #### L 500.10511, L500.69700 #### [facility] [place] [address] Glucose [Mass/Vol] 128 mg/dL High 70-100 [facility] Comment on above: Result Comment: 70-1 00- Normal Fasting; 100-125 Impaired Fasting; greater than 126 on more than one result- Diabetes. ADA guidelines. Results may be falsely elevated after the administration of Sulfapyridine. Results may be falsely depressed after the administration of Sulfasalazine. Performed By: #### L 500.53393, L500.73045 #### [facility] [address] [place] [address] Potassium [Moles/Vol] 4.0 mmol/L Normal 3.5-5.1 [facility] Comment on above: Performed By: #### L 500.48103, L500.30631 #### [facility] [address] [place] [address] 05961 Sodium [Moles/Vol] 141 mmol/L Normal 136-145 [facility] Comment on above: Performed By: #### L 500.28085, L500.16954 #### [facility] [address] [place] [address] 38736 Urea nitrogen [Mass/Vol] 21 mg/dL Normal 7-26 [facility] Comment on above: Performed By: #### L 500.57672, L500.49875 #### [facility] [address] [place], [place] [address] Urea nitrogen/Creatinine [Mass ratio] 21 mg/mg Normal 15-24 [facility] Comment on above: Performed By: #### L 500.60710, L500.81030 #### [facility] [address] [place] [address] 75344 GFR ESTon 12-17-2020 IF AMER Greater than [address] [facility] Comment on above: Performed By: #### L 500.07823, L500.79677 #### [facility] [address] [place] [address] 79876 IF non-AFR AMER 53 Normal [facility] Comment on above: Performed By: #### L 500.99567, L500.47991 #### [facility] [address] [place] [address] 52539 BMPon 12-14-2020 Anion gap [Moles/Vol] 3 mmol/L Low 5-16 [facility] Comment on above: Performed By: #### L 500.55321, L500.69649 #### [facility] [place] [address] Calcium [Mass/Vol] 9.7 mg/dL Normal 8.5-10.5 [facility] Comment on above: Result Comment: NOTE NEW NORMAL RANGE DUE TO REAGENT CHANGE Performed By: #### L 500.83838, L500.25433 #### [facility] [address] [place] [address] Chloride [Moles/Vol] 109 mmol/L High 98-107 [facility] Comment on above: Performed By: #### L 500.90506, L500.31457 #### [facility] [address] [place] [address] CO2 [Moles/Vol] 30.0 mmol/L Normal 21-32 [facility] Comment on above: Performed By: #### L 500.83853, L500.72218 #### [facility] [address] [place] [address] Creatinine [Mass/Vol] 1.14 mg/dL High 0.510-0.950 [facility] Comment on above: Result Comment: Mireya ents receiving either N-Acetylcysteine (NAC) or Metamizole prior to venipuncture, may have falsely depressed results. Performed By: #### L 500.32176, L500.72842 #### [facility] [address] [place], [place] [address] Glucose [Mass/Vol] 110 mg/dL High 70-100 [facility] Comment on above: Result Comment: 70-1 00- Normal Fasting; 100-125 Impaired Fasting; greater than 126 on more than one result- Diabetes. ADA guidelines. Results may be falsely elevated after the administration of Sulfapyridine. Results may be falsely depressed after the administration of Sulfasalazine. Performed By: #### L 500.64901, L500.50128 #### [facility] [address] [place] [address] Potassium [Moles/Vol] 4.9 mmol/L Normal 3.5-5.1 [facility] Comment on above: Performed By: #### L 500.46391, L500.91119 #### [facility] [place] [address] Sodium [Moles/Vol] 142 mmol/L Normal 136-145 [facility] Comment on above: Performed By: #### L 500.32764, L500.66378 #### [facility] [address] [place] [address] 58170 Urea nitrogen [Mass/Vol] 32 mg/dL High 7-26 [facility] Comment on above: Performed By: #### L 500.15543, L500.13953 #### [facility] [address] [place] [address] Urea nitrogen/Creatinine [Mass ratio] 28 mg/mg High 15-24 [facility] Comment on above: Performed By: #### L 500.78129, L500.69343 #### [facility] [address] [place] [address] 13051 CBCon 12-14-2020 Erythrocyte distribution width (RBC) [Ratio] 17.7 % High 11-14.5 [facility] Comment on above: Performed By: #### L 200.25818 #### [facility] [address] [place] [address] 70173 Hematocrit (Bld) [Volume fraction] 31.8 % Low 35.0-47.0 [facility] Comment on above: Performed By: #### L 200.78462 #### [facility] [address] [place] [address] 72565 Hemoglobin (Bld) [Mass/Vol] 9.6 g/dL Low 11.5-15.5 [facility] Comment on above: Performed By: #### L 200.10357 #### [facility] [address] [place] [address] 87118 MCHC (RBC) [Mass/Vol] 30.2 g/dL Low 32.0-36.0 [facility] Comment on above: Performed By: #### L 200.60687 #### [facility] [address] [place] [address] MCV (RBC) [Entitic vol] 97.8 fL Normal 80.0-99.0 [facility] Comment on above: Performed By: #### L 200.18821 #### [facility] [address] [place] [address] Nucleated RBC/100 WBC (Bld) [Ratio] 0.0 % Normal Less than 1 [facility] Comment on above: Performed By: #### L 200.17980 #### [facility] [address] [place] [address] Platelet mean volume (Bld) [Entitic vol] 10.1 fL Normal 9.4-12.4 [facility] Comment on above: Performed By: #### L 200.57698 #### [facility] [address] [place], [place] [address] PLT 248 K/CU MM Normal 150-450 [facility] Comment on above: Performed By: #### L 200.94066 #### [facility] [address] [place] [address] 88326 RBC 3.25 M/CU MM Low 3.90-5.30 [facility] Comment on above: Performed By: #### L 200.53769 #### [facility] [address] [place] [address] 80376 WBC 5.9 K/CUMM Normal 4.5-11.0 [facility] Comment on above: Performed By: #### L 200.78526 #### [facility] [place] [address] GFR ESTon 12-14-2020 IF AMER 56 Normal [facility] Comment on above: Performed By: #### L 500.31480, L500.00819 #### [facility] [address] [place] [address] 26620 IF non-AFR AMER 46 Normal [facility] Comment on above: Performed By: #### L 500.63191, L500.13023 #### [facility] [address] [place] [address] 63030 IRON PANELon 12-14-2020 Iron [Mass/Vol] 51 ug/dL Normal 50-170 [facility] Comment on above: Result Comment: Mireya ents treated with metal-binding drugs (e.g.deferoxamine) may have depressed iron values, as chelated iron may not properly react in the Siemens iron assay. Performed By: #### L 500.31086, L500.10010 #### [facility] [address] [place] [address] 31573 IRON SAT 20 % Low 22-44 [facility] Comment on above: Performed By: #### L 500.34954, L500.36217 #### [facility] [address] [place] [address] 36513 TIBC 260 UG/DL Normal 221-481 [facility] Comment on above: Performed By: #### L 500.99540, L500.34862 #### [facility] [address] [place] [address] 42986 BMPon 12-03-2020 Anion gap [Moles/Vol] 9 mmol/L Normal 5-16 [facility] Comment on above: Performed By: #### L 500.37544, L500.69334 #### [facility] [address] [place] [address] Performed By: #### L 500.17366, L500.65820 #### [facility] [address] [place] [address] Calcium [Mass/Vol] 9.3 mg/dL Normal 8.5-10.5 [facility] Comment on above: Result Comment: NOTE NEW NORMAL RANGE DUE TO REAGENT CHANGE Performed By: #### L 500.32222, L500.87657 #### [facility] [address] [place] [address] Performed By: #### L 500.99055, L500.75798 #### [facility] [address] [place] [address] Chloride [Moles/Vol] 104 mmol/L Normal 98-107 [facility] Comment on above: Performed By: #### L 500.38016, L500.80181 #### [facility] [address] [place] [address] Performed By: #### L 500.59554, L500.30718 #### [facility] [address] [place] [address] 06149 CO2 [Moles/Vol] 27.0 mmol/L Normal 21-32 [facility] Comment on above: Performed By: #### L 500.07493, L500.17245 #### [facility] [address] [place] [address] Performed By: #### L 500.52803, L500.19201 #### [facility] [address] [place], [place] [address] Creatinine [Mass/Vol] 1.13 mg/dL High 0.510-0.950 [facility] Comment on above: Result Comment: Mireya ents receiving either N-Acetylcysteine (NAC) or Metamizole prior to venipuncture, may have falsely depressed results. Performed By: #### L 500.61169, L500.56714 #### [facility] [address] [place] [address] Performed By: #### L 500.43871, L500.30767 #### [facility] [address] [place], [place] [address] Glucose [Mass/Vol] 155 mg/dL High 70-100 [facility] Comment on above: Result Comment: 70-1 00- Normal Fasting; 100-125 Impaired Fasting; greater than 126 on more than one result- Diabetes. ADA guidelines. Results may be falsely elevated after the administration of Sulfapyridine. Results may be falsely depressed after the administration of Sulfasalazine. Performed By: #### L 500.53245, L500.29931 #### [facility] [address] [place] [address] Performed By: #### L 500.63108, L500.93103 #### [facility] [address] [place] [address] Potassium [Moles/Vol] 3.9 mmol/L Normal 3.5-5.1 [facility] Comment on above: Performed By: #### L 500.60857, L500.95455 #### [facility] [address] [place] [address] Performed By: #### L 500.80988, L500.01742 #### [facility] [address] [place] [address] 05777 Sodium [Moles/Vol] 140 mmol/L Normal 136-145 [facility] Comment on above: Performed By: #### L 500.07060, L500.14406 #### [facility] [address] [place], [place] [address] Performed By: #### L 500.71792, L500.04361 #### [facility] [address] [place] [address] 76234 Urea nitrogen [Mass/Vol] 15 mg/dL Normal 7-26 [facility] Comment on above: Performed By: #### L 500.48444, L500.41621 #### [facility] [address] [place] [address] 81442 Performed By: #### L 500.40444, L500.40019 #### [facility] [address] [place] [address] Urea nitrogen/Creatinine [Mass ratio] 13 mg/mg Low 15-24 [facility] Comment on above: Performed By: #### L 500.16540, L500.80300 #### [facility] [address] [place] [address] Performed By: #### L 500.30962, L500.10653 #### [facility] [address] [place] [address] CBCon 12-03-2020 Erythrocyte distribution width (RBC) [Ratio] 18.1 % High 11-14.5 [facility] Comment on above: Performed By: #### L 200.01756 #### [facility] [address] [place] [address] Performed By: #### L 500.07925, L500.99964 #### [facility] [address] [place], [place] [address] Hematocrit (Bld) [Volume fraction] 33.7 % Low 35.0-47.0 [facility] Comment on above: Performed By: #### L 200.64719 #### [facility] [address] [place] [address] 51218 Performed By: #### L 500.27481, L500.60700 #### [facility] [address] [place], [place] [address] Hemoglobin (Bld) [Mass/Vol] 10.1 g/dL Low 11.5-15.5 [facility] Comment on above: Performed By: #### L 200.04039 #### [facility] [address] [place] [address]# [phone] Performed By: #### L 500.26430, L500.52102 #### [facility] [address] [place] [address]# [phone] MCHC (RBC) [Mass/Vol] 30.0 g/dL Low 32.0-36.0 [facility] Comment on above: Performed By: #### L 200.66464 #### [facility] [address] [place] [address]# [phone] Performed By: #### L 500.52883, L500.81060 #### [facility] [address] [place] [address]# [phone] MCV (RBC) [Entitic vol] 97.4 fL Normal 80.0-99.0 [facility] Comment on above: Performed By: #### L 200.40323 #### [facility] [address] [place] [address]# [phone] Performed By: #### L 500.32392, L500.42912 #### [facility] [address] [place] [address]# [phone] Nucleated RBC/100 WBC (Bld) [Ratio] 0.0 % Normal Less than 1 [facility] Comment on above: Performed By: #### L 200.13197 #### [facility] [address] [place] [address] Performed By: #### L 500.08174, L500.62121 #### [facility] [address] [place] [address] Platelet mean volume (Bld) [Entitic vol] 9.9 fL Normal 9.4-12.4 [facility] Comment on above: Performed By: #### L 200.67916 #### [facility] [place] [address] Performed By: #### L 500.16797, L500.57508 #### [facility] [address] [place] [address] 70814 PLT 201 K/CU MM Normal 150-450 [facility] Comment on above: Performed By: #### L 200.95068 #### [facility] [address] [place] [address] 60767 Performed By: #### L 500.08739, L500.39979 #### [facility] [address] [place] [address] 93571 RBC 3.46 M/CU MM Low 3.90-5.30 [facility] Comment on above: Performed By: #### L 200.03804 #### [facility] [address] [place] [address] 84866 Performed By: #### L 500.06636, L500.61269 #### [facility] [address] [place] [address] 19470 WBC 6.1 K/CUMM Normal 4.5-11.0 [facility] Comment on above: Performed By: #### L 200.40359 #### [facility] [address] [place] [id number] Performed By: #### L 500.63178, L500.26151 #### [facility] [address] [place] [address] 81954 GFR ESTon 12-03-2020 IF AMER 56 Normal [facility] Comment on above: Performed By: #### L 500.31627, L500.09950 #### [facility] [address] [place] [address] Performed By: #### L 500.19162, L500.82866 #### [facility] [address] [place] [address] 11814 IF non-AFR AMER 47 Normal [facility] Comment on above: Performed By: #### L 500.95204, L500.00791 #### [facility] [address] [place] [id number] Performed By: #### L 500.30544, L500.52616 #### [facility] [address] [place] [address] [id number] PBNP TESTon 12-03-2020 Natriuretic peptide B (Bld) [...] NEW NORMAL RANGE Performed By: #### L 500.74271 #### [facility] [address] [place] [address] Vital Signs Date Time Vital Sign Value Performing Clinician Facility 05-01-2025 11:30-0400 Body weight 67.8 kg FITZ GA MD [facility] [facility] 01-30-2025 11:30-0400 Body weight 68 kg FITZ GA MD [facility] 01-02-2025 11:55-0400 Body weight 69 kg FITZ GA MD [facility] 06-06-2022 11:20-0400 Body temperature 98.42 [degF] DR HARSHAD TEIXEIRA MD [facility] 06-06-2022 11:20-0400 Diastolic blood pressure 60 mm[Hg] DR HARSHAD TEIXEIRA MD [facility] 06-06-2022 11:20-0400 Heart rate 82 /min DR HARSHAD TEIXEIRA MD [facility] 06-06-2022 11:20-0400 Respiratory rate 14 /min DR HARSHAD TEIXEIRA MD [facility] 06-06-2022 11:20-0400 Systolic blood pressure 123 mm[Hg] DR HARSHAD TEIXEIRA MD [facility] 06-05-2022 06:54-0400 Diastolic blood pressure 61 mm[Hg] RODRI REICHFIELD DO [facility] 06-05-2022 06:54-0400 Heart rate 63 /min RODRI REICHFIELD DO [facility] 06-05-2022 06:54-0400 Respiratory rate 18 /min RODRI REICHFIELD DO [facility] 06-05-2022 06:54-0400 Systolic blood pressure 133 mm[Hg] RODRI REICHFIELD DO [facility] 06-05-2022 04:20-0400 Body temperature 97.7 [degF] RODRI REICHFIELD DO [facility] 06-05-2022 04:20-0400 Diastolic blood pressure 89 mm[Hg] RODRI REICHFIELD DO [facility] 06-05-2022 04:20-0400 Heart rate 65 /min RODRI REICHFIELD DO [facility] 06-05-2022 04:20-0400 Respiratory rate 18 /min [facility] DO [facility] 06-05-2022 04:20-0400 Systolic blood pressure 178 mm[Hg] RODRI [facility] DO [facility] 12-08-2021 12:03-0500 Diastolic blood pressure 69 mm[Hg] DR OC COULTER MD [facility] 12-08-2021 12:03-0500 Heart rate 60 /min DR OC COULTER MD [facility] 12-08-2021 12:03-0500 Respiratory rate 16 /min DR OC COULTER MD [facility] 12-08-2021 12:03-0500 Systolic blood pressure 180 mm[Hg] DR OC COULTER MD [facility] 12-08-2021 10:47-0500 Body height 162.[address] OC COULTER MD [facility] 12-08-2021 10:47-0500 Body temperature 98.42 [degF] DR OC COULTER MD [facility] 12-08-2021 10:47-0500 Body weight 69.[address] OC COULTER MD [facility] 12-08-2021 10:47-0500 Diastolic blood pressure 83 mm[Hg] DR OC COULTER MD [facility] 12-08-2021 10:47-0500 Heart rate 76 /min DR OC COULTER MD [facility] 12-08-2021 10:47-0500 Respiratory rate 24 /min DR OC COULTER MD [facility] 12-08-2021 10:47-0500 Systolic blood pressure 177 mm[Hg] DR OC COULTER MD [facility] 08-27-2021 09:49-0500 Diastolic blood pressure 66 mm[Hg] DR DAQUAN MERCADO MD [facility] 08-27-2021 09:49-0500 Heart rate 66 /min DR DAQUAN MERCADO MD [facility] 08-27-2021 09:49-0500 Respiratory rate 20 /min DR DAQUAN MERCADO MD [facility] 08-27-2021 09:49-0500 Systolic blood pressure 172 mm[Hg] DR DAQUAN MERCADO MD [facility] 08-27-2021 09:34-0500 Diastolic Blood Pressure NBP [address] DA[address]AN MERCADO MD [facility] 08-27-2021 09:34-0500 Heart rate 66 /min DR DAQUAN MERCADO MD [facility] 08-27-2021 09:34-0500 Respiratory rate 16 /min DR DAQUAN MERCADO MD [facility] 08-27-2021 09:34-0500 Systolic Blood Pressure NBP [address] DAQUAN MERCADO MD [facility] 08-27-2021 09:15-0500 Body height [address] DAQUAN MERCADO MD [facility] 08-27-2021 09:15-0500 Body weight [address] DAQUAN MERCADO MD [facility] 08-27-2021 09:15-0500 Body weight 28.58 kg/m2 DR DAQUAN MERCADO MD [facility] 08-27-2021 09:15-0500 diastolic 97 mm[Hg] DR DAQUAN MERCADO MD [facility] 08-27-2021 09:15-0500 Heart rate 64 /min DR DAQUAN MERCADO MD [facility] 08-27-2021 09:15-0500 Respiratory rate 19 /min DR DAQUAN MERCADO MD [facility] 08-27-2021 09:15-0500 systolic 164 mm[Hg] DR DAQUAN MERCADO MD [facility] Encounters Encounter Date Encounter Type Care Provider Facility Start: 08-19-2025 ambulatory Farnaz Gudla [facility] Fac[facility] ty:[facility] Start: 08-11-2025 ambulatory Farnaz Gudla OLS Facili ty:[facility] Start: 06-23-2025 ambulatory Farnaz Gudla OLS Facili ty:[facility] Start: 05-26-2025 End: 05-30-2025 ambulatory FITZ GA MD Facility[facility] Start: 05-26-2025 End: 05-30-2025 Outreach Lab FITZ GA MD [facility] Start: 05-06-2025 End: 05-10-2025 ambulatory FITZ GA MD Facility[facility] Start: 05-06-2025 End: 05-10-2025 Outreach Lab CAREN GASTON SILICATOR-HABILITATION ASSISTANT [facility] Start: 05-01-2025 End: 08-01-2025 ambulatory FITZ GA MD Facility:[facility] Start: 05-01-2025 End: 08-01-2025 OTHER THERAPY FITZ GA MD [facility] Start: 04-18-2025 End: 04-18-2025 ambulatory GELA NATARAJAN MD Facility:[facility] Start: 04-18-2025 End: 04-18-2025 Patient encounter procedure GELA NATARAJAN MD [facility] Start: 04-14-2025 End: 04-14-[address] ROMULO BARNARD MD Facility:[facility] Start: 04-14-2025 End: 04-14-[address] ROMULO BARNARD MD [facility] Start: 03-28-2025 End: 03-28-2025 ambulatory FITZ GA MD Facility[facility] Start: 03-28-2025 End: 03-28-2025 Patient encounter procedure FITZ GA MD [facility] Start: 03-20-2025 End: 03-20-2025 ambulatory FITZ GA MD Facility:[facility] Start: 03-06-2025 End: 03-06-2025 ambulatory FITZ GA MD Facility[facility] Start: 03-06-2025 End: 03-06-2025 Patient encounter procedure FITZ GA MD [facility] Start: 02-20-2025 End: 02-24-2025 ambulatory FITZ GA MD Facility[facility] Start: 02-20-2025 End: 02-24-2025 Outreach Lab FITZ GA MD [facility] Start: 02-18-2025 End: 02-18-2025 ambulatory FITZ GA MD Facility[facility] Start: 02-18-2025 End: 02-18-2025 Patient encounter procedure FITZ GA MD [facility] Start: 02-10-2025 End: 02-14-2025 ambulatory FITZ GA MD Facility[facility] Start: 02-10-2025 End: 02-14-2025 Outreach Lab FITZ GA MD [facility] Start: 10-21-2024 End: 10-25-2024 ambulatory FITZ GA MD Facility[facility] Start: 10-21-2024 End: 10-25-2024 Outreach Lab FITZ GA MD [facility] Start: 07-10-2024 End: 07-14-2024 Outreach Lab FITZ GA MD [facility] Start: 04-03-2024 End: 04-07-2024 ambulatory FITZ GA MD Facility:[facility] Start: 04-03-2024 End: 04-07-2024 Encounter for general adult medical examination without abnormal findings FITZ GA MD Facility:[facility] Start: 04-03-2024 End: 04-07-2024 Outreach Lab FITZ GA MD [facility] Start: 01-10-2024 End: 01-14-2024 ambulatory FITZ GA MD Facility:[facility] Start: 01-10-2024 End: 01-14-2024 Outreach Lab FITZ GA MD [facility] Start: 09-18-2023 End: 09-22-2023 ambulatory FITZ GA MD Facility:[facility] Start: 09-18-2023 End: 09-22-2023 Outreach Lab FITZ GA MD [facility] Start: 09-11-2023 End: 09-11-2023 ambulatory GELA NATARAJAN MD Facility:[facility] Start: 07-03-2023 End: 07-07-2023 ambulatory FITZ GA MD Facility:[facility] Start: 07-03-2023 End: 07-07-2023 Outreach Lab FITZ GA MD [facility] Start: 03-29-2023 End: 04-02-2023 Outreach Lab FITZ GA MD [facility] Start: 02-01-2023 End: 02-01-[address] DAQUAN MERCADO MD [facility] Start: 01-05-2023 End: 01-05-2023 Patient encounter procedure FITZ GA MD [facility] Start: 11-24-2022 End: 11-24-2022 Patient encounter procedure GELA NATARAJAN MD [facility] Start: 09-21-2022 End: 09-25-2022 Outreach Lab FITZ GA MD [facility] Start: 08-02-2022 End: 08-02-[address] DAQUAN MERCADO MD [facility] Start: 07-15-2022 End: 09-07-[address] ALFONSO RECINOS [facility] Start: 06-22-2022 End: 06-26-2022 Outreach Lab FITZ GA MD [facility] Start: 06-06-2022 End: 06-06-2022 Emergency department patient visit DR HARSHAD TEIXEIRA MD [facility] Start: 06-05-2022 End: 06-05-2022 Emergency department patient visit RODRI SY DO [facility] Start: 06-03-2022 End: 06-03-[address] DAQUAN MERCADO MD [facility] Start: 04-29-2022 End: 04-29-2022 Patient encounter procedure JABIER BLAKE SILICATOR-LIFT TRUCK MECHANIC [facility] Start: 04-21-2022 End: 04-21-[address] ROMULO BARNARD MD [facility] Start: 03-23-2022 End: 03-27-2022 Outreach Lab FITZ GA MD [facility] Start: 03-03-2022 End: 03-03-[address] DAQUAN MERCADO MD [facility] Start: 12-21-2021 End: 12-21-2021 Patient encounter procedure FITZ GA MD [facility] Start: 12-08-2021 End: 12-08-2021 Emergency department patient visit DR OC COULTER MD [facility] Start: 10-26-2021 End: 10-26-[address] DAQUAN MERCADO MD [facility] Start: 09-16-2021 End: 09-16-2021 Patient encounter procedure FITZ GA MD [facility] Start: 08-27-2021 End: 08-27-[address] DAQUAN MERCADO MD [facility] Procedures Date Procedure Procedure [...] DR DAQUAN CROUCH MD Comment on above: [facility] Start: 06-27-2007 Excision [...] Immunization Date Immunization Notes Care Provider [facility] 03-15-2022 COVID-19, mRNA, LNP- S, PF, 100 mcg or 50 mcg dose; Translations: [Moderna COVID-19 Vaccine] FITZ GA MD [facility] 09-14-2021 COVID-19, mRNA, LNP- S, PF, 100 mcg/ 0.5 mL dose; Translations: [Moderna COVID-19 Vaccine] FITZ GA MD [facility] 12-03-2020 SARS-CoV-2 (COVID-19 ) mRNA-[address] DAQUAN MERCADO MD [facility] 06-26-2019 influenza virus vaccine, unspecified formulation DR DAQUAN MERCADO MD [facility] 04-08-2019 tetanus and diphther ia toxoids, adsorbed, preservative free, for adult use (2 Lf of tetanus toxoid and 2 Lf of diphtheria toxoid); Translations: [Tenivac] DR DAQUAN MERCADO MD [facility] Payers Date Payer Category Payer Self-pay 2023 Unknown [id number] 2022 Private Health Insurance [id number] 2022 Unknown [id number] 1942 Unknown [id number] 2.16.8 40.1.274220.3.579.2.627 1942 Unknown [id number] 2.16.8 40.1.624711.3.579.2.627 1942 Unknown [id number] 2.16.8 40.1.680520.3.579.2.627 1942 Unknown [id number] 2.16.8 40.1.161081.3.579.2.62 1942 Unknown [id number] 2.16.8 40.1.821127.3.579.2.627 1942 Unknown [id number] 2.16. 840.1.119751.3.579.2.62 1942 Unknown [id number] 2.16. 840.1.687917.3.579.2.62 1942 Unknown [id number] 2.16. 840.1.201629.3.579.2. 1942 Unknown [id number] 2.16. 840.1.616709.3.579.2.62 1942 Unknown [id number] 2.16. 840.1.572038.3.579.2. 1942 Unknown [id number] 2.16. 840.1.369225.3.579.2. 1942 Unknown [id number] 2.16. 840.1.548376.3.579.2.62 1942 Unknown [id number] 2.16.8 40.1.527756.3.579.2.62 1942 Unknown [id number] 2.16.8 40.1.284674.3.579.2.62 1942 Unknown [id number] 2.16.8 40.1.375955.3.579.2.62 1942 Unknown [id number] 2.16.8 40.1.180800.3.579.2.62 1942 Unknown [id number] 2.16.8 40.1.023093.3.579.2.627 Unknown [id number] 2.16.8 40.1.759398.3.579.2.462 Unknown [id number] 2.16.8 40.1.639366.3.579.2.462 Unknown [id number] 2.16.8 40.1.334981.3.579.2.462 Social History Date Type Detail Facility Start: 04-30-2019 End: 03-06-2025 Never smoked tobacco (finding) [facility] Sex Assigned At Female [facility] Sexual Orientation [facility] Start: 07-23-2020 Sex Female (finding) [facility] Functional Status Date Assessment Result Facility 06-06-2022 Functional Status Up ad paula [facility] 06-05-2022 Functional Status Independent [facility] 06-05-2022 Functional Status Standard Safet y ID band on, Allergy Band on, Call device within reach, Bed in low position, Wheels locked, Upper/Half-Length side-rails up, Phone within reach, Visitor at bedside, Safety level maintained [facility] Mental Status Date Assessment Result Facility 06-06-2022 Mental Status Oriented x 4 [facility] 06-05-2022 Mental Status Orientation Oriented x 4 [facility] 06-05-2022 Mental Status [facility] Clinical Notes 08-27-2021 to 05-01-2025 Note Date [...] consulting with peers, etc. Digitally Signed by Dhrvu Cook PharmD on 05/01/2025 03:23 PM [facility] 04-18-2025 Note Exam Date Time Procedure Performing Provider Status 04/18/25 9:33 AM Echocardiogram, Adult - CV SHELL MEDLEY MD; Auth (Verified) [facility]05-17-2025 Note. MICRO - Microbiology PROCEDURE: Culture [...] Locations *1: This test was performed at: [facility], [address] [place] [address], [phone] , [facility]05-13-2025 Note* Exam Date Time Procedure Performing Provider Status 02/18/25 2:[address] Abdomen/Pelvis w/Contrast GUDELIA WISDOM MD; Auth (Verified) [id number] ORIGINAL EXAMINATION: CT OF THE ABDOMEN AND [...] Date: 02/18/2025 4:10:18 PM Ordering Provider: FITZ [facility]04-24-2025 Note Vitals: Weight: 149.6 pounds [...] the clinic will help her apply for bond runner PAP. Patient will follow-up in three months [...] Dhruv Cook PharmD on 01/30/2025 01:29 PM [facility]03-27-2025 Note Vitals: - Weight: 151.8lbs History [...] - Foot Exam: Completed in 2024 by manga artist Blood Glucose Monitoring: Currently is not checking her blood sugar due to not having a working glucometer at home. Will set her up with free [facility] provided glucometer and testing supplies. [...] Assessment & Plan: Provided patient with free [facility] glucometer and testing supplies. Set [...] get her qualified for free Farxiga through bond runner PAP but patient wishes to discuss with [...] by Adelso Basilio on 01/02/2025 02:21 PM [facility]03-27-2025 Note Vitals: - Weight: 151.8lbs History and Physical: [facility]olie [facility] an initial visit on diabetes management. She is currently managed on glimepiride 4mg daily. She was previously well controlled on Farxiga 10mg daily but stoppedtaking this due to the high copay. The main focus on today's visit will be setting her up with [facility] provided glucometer and testing supplies [...] - Foot Exam: Completed in 2024 by manga artist Blood Glucose Monitoring: Currently is not checking her blood sugar due to not having a working glucometer at home. Will set her up with free [facility] provided glucometer and testing supplies. [...] Assessment & Plan: Provided patient with free [facility] Clinic glucometer and testing supplies. Set [...] get her qualified for free Farxiga through bond runner PAP but patient wishes to discuss with [...] by Adelso Basilio on 01/02/2025 02:21 PM [facility]08-29-2022 Hospital Discharge instructions Patient Education 06/06/2022 [...] by your healthcare provider. You may use avxx-knu-wywsgew pain medicines to control pain, unless another [...] doesn t get better after several days [phone] [employer]. [address] [place] [address]. All rights reserved. This information is not [...] injured area. Frequent bruising for unknown reasons [phone] [employer]. [address] [place] [address]. All rights reserved. This information is not intended as a substitute for professional medical care. Always follow yourhealthcare professional's instructions. Follow Up Care 06/06/2022 11:12:51 With:FITZ GA MD Address: [place] [address]- When:2-4 days [facility] 08-29-2022 Note Discharge Instructions Thank you for allowing [facility] to assist you with your healthcare needs. [...] When Within 2-4 days Where: [place] [address]- Allergies codeine (N/V) egg albumin [...] by your healthcare provider. You may use rlwv-qjt-qzqustx pain medicines to control pain, unless another [...] doesn t get better after several days [phone] [employer]. [address] [place] [address]. All rights reserved. This information is not [...] injured area. Frequent bruising for unknown reasons [phone] [employer]. [address] [place] [address]. All rights reserved. This information is not intended as a substitute for professional medical care. Always follow yourhealthcare professional's instructions. Additional Information VACCINATE! IT SAVES LIVES! Members of the community who have not yet received the COVID-19 vaccine and would like to receive it can visit one of [facility] vaccine clinics. There are many vaccine clinic locations within the [facility]. For locations and available times, please visit [email or web address]. It is important to note that some COVID mobile vaccine clinics are held outdoors and may be canceled in rainy orstormy conditions. To learn more about pediatric vaccinations (ages 5-11), we invite you to visit the [facility] webpage. [email or web address]://[email or web address]/pages/[email or web address]-Eieps-Bicoliofadc-Byxcxhungc-[email or web address]-Pnk stions.htmlTo learn more about the COVID-19 vaccine, we invite you to visit the [facility] website for a list of frequently asked questions. [email or web address] _Asked-Questions.pdf [facility] Access Instructions: Stay connected with your healthcare team and access your personal medical information anytime with the [facility] Patient Portal. If you would like a full copy of your medical records please contact the [facility] Medical Records Department Monday through Monday between 8a.m. and 4:30p.m. Please follow the directions below to access the portal: 1.Access the email account you provided upon registration to the [facility].2.Look for an invitation email from [facility].3.Open the email and access the invitation link: Accept Invitation to [facility]4.Fill in the required meredith to create your account. Sign into www.laliQuality Technology Services with your username and password that you [...] you will allow to register on the [facility] Patient Portal for access to your information. You can also access the [facility] Patient Portal on the [employer] roya. Simply click on "Health Records" under [...] Call your local pharmacy or go to http://bit.[employer]/8V7Wz1v to find one close to you.3.Make use of household items: Use cat litter or old coffee grounds to dispose medications if other options arenot available. Mix your drugs with these household products, seal them in an airtight container andthrow it into the garbage. Call [facility]: [phone] to be sure your drugs can be [...] aware that I should contact my doctor. Patient/Nick Setter Signature: Date/Time: Relationship to Patient: Witness Name/Signature: Date/Time: [facility] Laligilberto [id number] Note Discharge Instructions Thank you for allowing [...] DO When Within 3-7 days Where: [address] [facility] [address] [place] [address] Follow Up with Go to emergency room if symptoms worsen When Within 2-4 days Follow Up with FITZ GA MD When Within 2-4 days Where: [address] [facility] [place] [address]- Allergies codeine (N/V) egg albumin (whites) (Unknown) [...] blue color of the hand or foot [phone] [employer]. [address] [place] [address], [place] [address]. All rights reserved. This information is not [...] in vomit, stools (black or red color) 3822-1647 [employer]. [address] [place] [address], [place] [address]. All rights reserved. This information is not intended as a substitute for professional medical care. Always follow yourhealthcare professional's instructions. Additional Information VACCINATE! IT SAVES LIVES! Members of the community who have not yet received the COVID-19 vaccine and would like to receive it can visit one of [facility] vaccine clinics. There are many vaccine clinic locations within the [facility]. For locations and available times, please visit [email or web address]. It is important to note that some COVID mobile vaccine clinics are held outdoors and may be canceled in rainy orstormy conditions. To learn more about pediatric vaccinations (ages 5-11), we invite you to visit the [facility] webpage. [email or web address]://[email or web address] [email or web address]/pages/[email or web address]-Hplmt-Bsrauxnxlvq-Azaoqdhefb-Mrrxn-Ycs stions.htmlTo learn more about the COVID-19 vaccine, we invite you to visit the [facility] website for a list of frequently asked questions. [email or web address] _Asked-Questions.pdf [facility] Patient Portal Access Instructions: Stay connected with your healthcare team and access your personal medical information anytime with the [facility] Patient Portal. If you would like a full copy of your medical records please contact the [facility] Medical Records Department Monday through Monday between 8a.m. and 4:30p.m. Please follow the directions below to access the portal: 1.Access the email account you provided upon registration to the [facility].2.Look for an invitation email from [facility].3.Open the email and access the invitation link: Accept Invitation to [facility]4.Fill in the required meredith to create your account. Sign into www.[employer] with your username and password that you [...] you will allow to register on the [facility] Patient Portal for access to your information. You can also access the [facility] Patient Portal on the [employer]. Simply click on "Health Records" under "HealthData" and then click on the [employer] logo. HOW TO SAFELY DISPOSE OF PRESCRIPTION [...] Call your local pharmacy or go to http://[employer]/2G9Le4d to find one close to you.3.Make use of household items: Use cat litter or old coffee grounds to dispose medications if other options arenot available. Mix your drugs with these household products, seal them in an airtight container andthrow it into the garbage. Call [facility]: [phone] to be sure your drugs can be [...] aware that I should contact my doctor. Patient/Nick Setter Signature: Date/Time: Relationship to Patient: Witness Name/Signature: Date/Time: [facility]08-28-2022 Hospital Discharge instructions Patient Education 06/05/2022 [...] blue color of the hand or foot [phone] [employer]. [address] [place], [place] [address]. All rights reserved. This information is not [...] in vomit, stools (black or red color) 8915-5796 [employer]. [address] [place] [address]. All rights reserved. This information is not intended as a substitute for professional medical care. Always follow yourhealthcare professional's instructions. Follow Up Care 06/05/2022 04:08:27 With:DO SAMARIA SAVAGE DO Address: [address] [place] [address] [address] [place] [address] When:3-7 days With:Go to emergency room if symptoms worsen Address:Unknown When:2-4 days With:FITZ GA MD Address: [address] [facility] [address] [facility] [place] [address]- When:2-4 days [facility] 08-28-2022 Note ORIGINAL EXAMINATION: TWO XRAY [...] Sign Date: 06/05/2022 5:46:32 AM Ordering Provider: [facility]08-28[facility]2022 Note ORIGINAL EXAMINATION: TWO XRAY VIEWS [...] shoulder or upper arm Fever or chills 5688-1663 [employer]. [address] [place] [address], [place] [address]. All rights reserved. This information is not [...] in any part of the body Seizures 7719-4250 [employer]. [address] [place] [address]. All rights reserved. This information is not [...] the ears or bruising around the eyes 2343-7858 [employer]. [address] [place] [address]. All rights reserved. This information is not intended as a substitute for professional medical care. Always follow yourhealthcare professional's instructions. Follow Up Care 12/08/2021 10:40:55 With:FITZ GA Address: [address] [place] [address] [address] [facility] [place] [address]- Business (1) When:2-4 days Comments:Return to ED if symptoms worsen [facility] 11-19-2021 Evaluation + Plan noteExtracted from: [...] s prescription regimen. I have reviewed the [place] Automated Rx Reporting System (OARRS) report for [...] Appointments Appointment Date:09/16/2021 09:30:00 AM Scheduled Provider: Location:[facility] Appointment Type:PC Nurse Lab Appointment Date:09/23/2021 11:30:00 AM Scheduled Provider: Location:[facility] Appointment Type:CV OV Appointment Date:09/27/2021 01:15:00 PM Scheduled Provider:FITZ GA MD Location:[facility] Appointment Type: OV Future Scheduled Tests Laboratory* Basic Metabolic Panel 02/06/21 * Thyroid Stimulating Hormone 03/31/21 * Free T4 03/31/21 * A1C Hemoglobin 09/30/21 * Complete Blood Count 03/31/21 * Lipid Profile 09/30/21 * Complete Metabolic Panel 09/30/21 Radiology* XR Foot Minimum 3 Views Left 06/16/21 * MA Mammo Screening Bilateral w/ Curt 11/03/20 [facility] Pain Management 11-19-2021 Hospital Discharge instructions Patient Education 08/27/2021 09:25:42 PM Discharge Instructions, Esha wyman (01/08/21) ([id number]) [facility] Pain Management Discharge Instructions POST PROCEDURE [...] drawn on (Try to have drawn at [facility] to speed results to us). Stop [...] someone to drive you home. [facility] Evaluation + Plan note [...] MA Mammo Screening Bilateral w/ Curt 11/03/20 [facility] Evaluation + Plan note Future Appointments [...] Screening Bilateral w/ Curt 11/03/20 [facility] Pain Management Evaluation + Plan note [...] CT Abdomen and Pelvis w/ contrast 12/08/21 [facility] Evaluation + Plan note Future Appointments Appointment Date:12/28/2021 10:00:00 AM Scheduled Provider:FITZ GA MD Location:[facility] Appointment Type:PC Wellness Primetime Enhanced with [...] CT Abdomen and Pelvis w/ contrast 12/08/21 [facility] Evaluation + Plan note Future Appointments Appointment Date:03/15/2022 01:30:00 PM Scheduled Provider: Location:[facility] Appointment Type:COVID AMB VACCINE Appointment Date:03/23/2022 09:15:00 AM Scheduled Provider: Location:[facility] Appointment Type:PC Nurse Lab Appointment Date:03/31/2022 11:00:00 AM Scheduled Provider:FITZ GA MD Location:[facility] Appointment Type: OV Future Scheduled [...] Appointments Appointment Date:03/29/2022 01:15:00 PM Scheduled Provider: Location:[facility] Appointment Type:CV OV Appointment Date:03/31/2022 11:00:00 AM Scheduled Provider:FITZ GA MD Location:[facility] Appointment Type:PC OV Future Scheduled Tests Laboratory* Complete Blood Count 09/28/21 * Complete Blood Count 03/31/21 Radiology* XR Foot Minimum 3 Views Left 06/16/21 * XR Shoulder Minimum 2 Views Left 12/09/21 * XR Wrist Minimum 3 Views Left 12/09/21 [facility] Evaluation + Plan note Future Appointments [...] XR Wrist Minimum 3 Views Left 12/09/21 [facility] Evaluation + Plan note Future Appointments [...] Minimum 3 Views Left 12/09/21 [facility] Pain [facility] Evaluation + Plan note Future Appointments [...] Minimum 3 Views Left 12/09/21 [facility] Evaluation + Plan note Future Appointments Appointment Date:07/21/2022 09:30:00 AM Scheduled Provider:FITZ GA MD Location:[facility] Appointment Type:PC OV Appointment Date:08/02/2022 10:30:00 AM Scheduled Provider:DAQUAN MERCADO MD Location:PM Office Appointment Type:PM OV Future Scheduled Tests Laboratory* Complete Blood Count 09/28/21 Radiology* XR Shoulder Minimum 2 Views Left 12/09/21 * XR Wrist Minimum 3 Views Left 12/09/21 [facility] Evaluation + Plan note Future Appointments Appointment Date:09/21/2022 09:45:00 AM Scheduled Provider: Location:[facility] Appointment Type:PC Nurse Lab Appointment Date:10/13/2022 11:30:00 AM Scheduled Provider:FITZ GA MD Location:[facility] Appointment Type:PC OV Future Scheduled Tests Laboratory* Thyroid Stimulating Hormone 10/06/22 * A1C Hemoglobin 10/06/22 * Complete Blood Count 07/07/22 * Complete Blood Count 09/28/21 * Lipid Profile 10/06/22 * Complete Metabolic Panel 10/06/22 Radiology* XR Shoulder Minimum 2 Views Left 12/09/21 * XR Wrist Minimum 3 Views Left 12/09/21 [facility] Pain Management Evaluation + Plan note Future Appointments Appointment Date:10/13/2022 11:30:00 AM Scheduled Provider:FITZ GA MD Location:[facility] Appointment Type:PC OV Future Scheduled Tests Laboratory* Complete Blood Count 07/07/22 Radiology* XR Shoulder Minimum 2 Views Left 12/09/21 * XR Wrist Minimum 3 Views Left 12/09/21 [facility] Evaluation + Plan note Future Appointments Appointment Date:11/30/2022 01:00:00 PM Scheduled Provider: Location:[facility] Appointment Type:CV Procedure - AOH Echo Appointment Date:01/04/2023 09:30:00 AM Scheduled Provider: Location:[facility] Appointment Type:PC Nurse Lab Appointment Date:01/12/2023 11:30:00 AM Scheduled Provider:FITZ GA MD Location:[facility] Appointment Type:PC Wellness Primetime Enhanced [...] XR Wrist Minimum 3 Views Left 12/09/21 [facility] Evaluation + Plan note Future Appointments Appointment Date:01/12/2023 11:30:00 AM Scheduled Provider:FITZ GA MD Location:[facility] Appointment Type:PC Wellness Primetime Enhanced Appointment Date:02/01/2023 11:30:00 AM Scheduled Provider:DAQUAN MERCADO MD Location:PM Office Appointment Type:PM OV Appointment Date:02/02/2023 11:45:00 AM Scheduled Provider: Location:[facility] Appointment Type:CV OV Future Scheduled Tests Laboratory* Complete Blood Count 07/07/22 [facility] Evaluation + Plan note Future Appointments Appointment Date:02/02/2023 11:45:00 AM Scheduled Provider: Location:[facility] Appointment Type:CV OV Appointment Date:03/29/2023 09:30:00 AM Scheduled Provider: Location:[facility] Appointment Type:PC Nurse Lab Appointment Date:04/14/2023 10:30:00 AM Scheduled Provider:FITZ GA MD Location:[facility] Appointment Type:PC OV Future Scheduled Tests Laboratory* Thyroid Stimulating Hormone 04/13/23 * A1C Hemoglobin 04/13/23 * Complete Blood Count 07/07/22 * Complete Blood Count 01/12/23 * Lipid Profile 04/13/23 * Complete Metabolic Panel 04/13/23 [facility] Management Evaluation + Plan note Future Appointments Appointment Date:04/14/2023 10:30:00 AM Scheduled Provider:FITZ GA MD Location:[facility] Appointment Type:PC OV Future Scheduled Tests Laboratory* Complete Blood Count 07/07/22 * Complete Blood Count 01/12/23 [facility] Evaluation + Plan note Future Appointments Appointment Date:07/14/2023 10:45:00 AM Scheduled Provider:FITZ GA MD Location:[facility] Appointment Type:PC OV Appointment Date:08/03/2023 09:10:00 AM Scheduled Provider:DAQUAN MERCADO MD Location:[facility] Appointment Type:PM OV Appointment Date:08/08/2023 10:45:00 AM Scheduled Provider: Location:[facility] Appointment Type:CV OV [facility] Evaluation + Plan note Future Appointments Appointment Date:02/13/2024 11:00:00 AM Scheduled Provider: Location:[facility] Appointment Type:CV OV Appointment Date:04/03/2024 09:00:00 AM Scheduled Provider: Location:[facility] Appointment Type:PC Nurse Lab Appointment Date:04/12/2024 11:00:00 AM Scheduled Provider:FITZ GA MD Location:[facility] Appointment Type:PC OV Future Scheduled Tests Laboratory* Thyroid Stimulating Hormone 04/12/24 * A1C Hemoglobin 04/12/24 * Complete Blood Count 01/12/24 * Lipid Profile 04/12/24 * Complete Metabolic Panel 04/12/24 [facility] Evaluation + Plan note Future Appointments Appointment Date:04/12/2024 11:00:00 AM Scheduled Provider:FITZ GA MD Location:[facility] Appointment Type:PC Wellness Primetime Enhanced Future Scheduled Tests Laboratory* Complete Blood Count 01/12/24 [facility] Evaluation + Plan note Future Appointments Appointment Date:07/19/2024 11:00:00 AM Scheduled Provider:FITZ GA MD Location:[facility] Appointment Type:PC OV Future Scheduled Tests Laboratory* Complete Blood Count 01/12/24 [facility] Evaluation + Plan note Future Appointments Appointment Date:10/13/2023 11:00:00 AM Scheduled Provider:FITZ GA MD Location:[facility] Appointment Type:PC OV Follow Up [facility] Evaluation + Plan note Future Appointments Appointment Date:11/14/2024 02:30:00 PM Scheduled Provider:FITZ GA MD Location:[facility] Appointment Type:PC OV Future Scheduled Tests Laboratory* Complete Blood Count 01/12/24 [facility] Evaluation + Plan note Future Appointments Appointment Date:02/20/2025 03:00:00 PM Scheduled Provider:FITZ GA MD Location:[facility] Appointment Type:PC OV Appointment Date:03/20/2025 10:30:00 AM Scheduled Provider:JESSE NATARAJAN Location:[facility] Appointment Type:CV OV Appointment Date:05/01/2025 11:00:00 AM Scheduled Provider: Location:[facility] Appointment Type:MEDS - Diabetic Individual Visit Future Scheduled Tests Radiology* CT Abdomen and Pelvis w/ contrast 02/12/25 [facility] Evaluation + Plan note Future Appointments Appointment Date:02/20/2025 09:30:00 AM Scheduled Provider:FITZ GA MD Location:[facility] Appointment Type:PC OV Appointment Date:03/20/2025 10:30:00 AM Scheduled Provider:JESSE NATARAJAN Location:[facility] Appointment Type:CV OV Appointment Date:05/01/2025 11:00:00 AM Scheduled Provider: Location:[facility] Appointment Type:MEDS - Diabetic Individual Visit [facility] Evaluation + Plan note Future Appointments Appointment Date:03/06/2025 01:30:00 PM Scheduled Provider:FITZ GA MD Location:[facility] Appointment Type:PC OV Follow Up Appointment Date:03/20/2025 10:30:00 AM Scheduled Provider:JESSE NATARAJAN Location:[facility] Appointment Type:CV OV Appointment Date:05/01/2025 11:00:00 AM Scheduled Provider: Location:[facility] Appointment Type:MEDS - Diabetic Individual Visit [facility] Evaluation + Plan note Future Appointments Appointment Date:03/20/2025 10:30:00 AM Scheduled Provider:JESSE NATARAJAN Location:[facility] Appointment Type:CV OV Appointment Date:05/01/2025 11:00:00 AM Scheduled Provider: Location:[facility] Appointment Type:MEDS - Diabetic Individual Visit Appointment Date:05/26/2025 09:30:00 AM Scheduled Provider: Location:[facility] Appointment Type:PC Nurse Lab Appointment Date:06/05/2025 11:30:00 AM Scheduled Provider:FITZ GA MD Location:[facility] Appointment Type:[facility] Evaluation + Plan note Future Appointments Appointment Date:04/18/2025 09:00:00 AM Scheduled Provider: Location:[facility] Appointment Type:Echo - Echocardiogram Adult Appointment Date:05/01/2025 11:00:00 AM Scheduled Provider: Location:[facility] Appointment Type:MEDS - Diabetic Individual Visit Appointment Date:05/26/2025 09:30:00 AM Scheduled Provider: Location:[facility] Appointment Type:PC Nurse Lab Appointment Date:06/05/2025 11:30:00 AM Scheduled Provider:FITZ GA MD Location:[facility] Appointment Type:[facility] Evaluation + Plan note Future Appointments Appointment Date:05/01/2025 11:00:00 AM Scheduled Provider: Location:[facility] Appointment Type:MEDS - Diabetic Individual Visit Appointment Date:05/26/2025 09:30:00 AM Scheduled Provider: Location:[facility] Appointment Type:PC Nurse Lab Appointment Date:06/05/2025 11:30:00 AM Scheduled Provider:FITZ GA MD Location:[facility] Appointment Type:[facility] Evaluation + Plan note Future Appointments Appointment Date:05/26/2025 09:30:00 AM Scheduled Provider: Location:[facility] Appointment Type:PC Nurse Lab Appointment Date:06/03/2025 09:30:00 AM Scheduled Provider:FITZ GA MD Location:[facility] Appointment Type:[facility] Evaluation + Plan note Future Appointments Appointment Date:06/17/2025 11:30:00 AM Scheduled Provider:FITZ GA MD Location:[facility] Appointment Type:[facility] Evaluation + Plan note Future Appointments Appointment Date:09/01/2025 10:45:00 AM Scheduled Provider:JESSE NATARAJAN Location:[facility] Appointment Type:CV OV [facility] Hospital course Narrative No data available for this section [facility] Hospital Discharge instructions No data available for this section [facility] Note* Noah Swain L: PERFORM Event Display: Pain Management Treatment Agreement Authored Date: [id number] [facility] Progress note No data available for this section [facility] Summary Purpose Family [...] section and content) DATE CREATED AUTHOR 11/28/2021 [facility] Susan Chaudhry DATE CREATED AUTHOR AUTHOR'S ORGANIZ ATION 04/08/2024 [facility] ([place]) DATE CREATED AUTHOR AUTHOR'S ORGANIZ ATION 03/23/2025 [facility] DATE CREATED AUTHOR AUTHOR'S ORGANIZ ATION 08/03/2025 [facility] DATE CREATED AUTHOR AUTHOR'S ORGANIZ ATION 08/20/[address] [facility] Care Team (unrecognized sect ion and content) Personnel Name: FITZ GA MD Address: [address] [place] [address] [place] [address]- [place] Name: Yanira Liz Personnel Name: FITZ GA MD Address: [place] [address]- [place] Name: Yanira Liz Care Team Personnel Name: ANTOLIN DICKENS Position: P4 Advanced Wall Scraper Member Role: Pain Management Address: Address: [address] [facility] [address] [facility] [place] [address]- [place] Name: Yanira Liz Position: P3 Scheduling - Tracer Bullet Section Supervisor Advanced Member Role: Other Name: DAQUAN MERCADO MD Position: P4 Physician - General Surgery Member Role: Pain Management Address: Address: [address] [facility] [place] [address]- [place] Name: FITZ GA MD Position: P4 Physician - Primary Care Member Role: Primary Care Physician Address: Address: [place] [id number] Name: Britni Otto Position: Quality Review Member Role: Power Wheelchair Mechanic Care Team Related Persons Name: MALVIN MASON Address: [id number] [place] [phone] [place] Care Team Personnel Name: ANTOLIN DICKENS Position: P4 Advanced Wall Scraper Member Role: Pain Management Address: Address: [address] [facility] [place] [address]- [place] Name: Yanira Liz Position: P3 Scheduling - Tracer Bullet Section Supervisor Advanced Member Role: Other Name: DAQUAN MERCADO MD Position: P4 Physician - General Surgery Member Role: Pain Management Address: Address: [address] [facility] [place] [address]- [place] Name: FITZ GA MD Position: P4 Physician - Primary Care Member Role: Primary Care Physician Address: Address: [address] [place], [place] [address]- Name: Britni Otto Position: Quality Review Member Role: Power Wheelchair Mechanic Care Team Related Persons Name: MALVIN MASON Address: Home [address] [place], [place] [id number] [place] Care Team Personnel Name: ANTOLIN DICKENS Position: P4 Advanced Wall Scraper Member Role: Pain Management Address: Address: [address] [facility] [place] [address]- [place] Name: Yanira Liz Position: P3 Scheduling - Tracer Bullet Section Supervisor Advanced Member Role: Other Name: DAQUAN MERCADO MD Position: P4 Physician - General Surgery Member Role: Pain Management Address: Address: [address] [facility] [place] [address]- [place] Name: FITZ GA MD Position: P4 Physician - Primary Care Member Role: Primary Care Physician Address: Address: [place] [address]- [place] Name: Britni Otto Position: Quality Review Member Role: Power Wheelchair Mechanic Care Team Related Persons Name: MALVIN MASON Address: [address] [phone] Care Team Personnel Name: ANTOLIN DICKENS Position: P4 Advanced Wall Scraper Member Role: Pain Management Address: Address: [address] [facility] [place] [facility] [place] [address]- [place] Name: Yanira Liz Position: P3 Scheduling - Tracer Bullet Section Supervisor Advanced Member Role: Other Name: DAQUAN MERCADO MD Position: P4 Physician - General Surgery Member Role: Pain Management Address: Address: [address] [facility] [place] [address]- [place] Name: FITZ GA MD Position: P4 Physician - Primary Care Member Role: Primary Care Physician Address: Address: [place] [address]- Name: Britni Otto Position: Quality Review Member Role: Power Wheelchair Mechanic Care Team Related Persons Name: KWAKU MASON Care Team Personnel Name: ANTOLIN DICKENS Position: Hospitalist Advanced Practice Nurse Member Role: Pain Management Address: Address: [address] [facility] [place] [address]- [place] Name: Yanira Liz LPN Position: CONTINUOUS PICKLING LINE PICKLER Member Role: Other Name: DAQUAN MERCADO MD Position: P4 Physician - General Surgery Member Role: Pain Management Address: Address: [address] [facility] [place], [place] [address] Name: FITZ GA MD Position: P4 Physician - Primary Care Member Role: Primary Care Physician Address: Address: [place] [address]- [place] Name: Britni Otto Position: Quality Review Member Role: Power Wheelchair Mechanic Care Team Related Persons Name: KWAKU MASON Care Team Personnel Name: ANTOLIN DICKENS Position: Hospitalist Advanced Practice Nurse Member Role: Pain Management Address: Address: [facility] [address] [place] [address] Name: Yanira Liz LPN Position: CONTINUOUS PICKLING LINE PICKLER Member Role: Other Name: DAQUAN MERCADO MD Position: P4 Physician - General Surgery Member Role: Pain Management Address: Address: [address] [facility] [address] Name: FITZ GA MD Position: P4 Physician - Primary Care Member Role: Primary Care Physician Address: Address: [address] Name: Britni Otto Position: Quality Review Member Role: Power Wheelchair Mechanic Care Team Related Persons Name: KWAKU MASON Care Team Personnel Name: ANTOLIN DICKENS Position: Hospitalist Advanced Practice Nurse Member Role: Pain Management Address: Address: [address] [place] [address] Name: Yanira Liz LPN Position: CONTINUOUS PICKLING LINE PICKLER Member Role: Other Name: DAQUAN MERCADO MD Position: P4 Physician - General Surgery Member Role: Pain Management Address: Address: [address] [facility] [place], [place] [address] Name: FITZ GA MD Position: P4 Physician - Primary Care Member Role: Primary Care Physician Address: Address: [place], [place] [address] Name: Britni Otto Position: Quality Review Member Role: Power Wheelchair Mechanic Care Team Related Persons Name: KWAKU MASON Care Team Personnel Name: ANTOLIN DICKENS Position: P4 Advanced Wall Scraper Member Role: Pain Management Address: Address: [address] [facility] [place], [place] [address] Name: Yanira Liz Position: P3 Scheduling - Tracer Bullet Section Supervisor Advanced Member Role: Other Name: DAQUAN MERCADO MD Position: P4 Physician - General Surgery Member Role: Pain Management Address: Address: [address] [facility] [place] [place], [place] [address] Name: FITZ GA MD Position: P4 Physician - Primary Care Member Role: Primary Care Physician Address: Address: [address] Name: Britni Otto Position: Quality Review Member Role: Power Wheelchair Mechanic Care Team Related Persons Name: KWAKU MASON Care Team Personnel Name: ANTOLIN DICKENS Position: Hospitalist Advanced Practice Nurse Member Role: Pain Management Address: [address] [place] [address] Telecom: Name: DAQUAN MERCADO MD Position: P4 Physician - General Surgery Member Role: Pain Management Address: [address] [facility] [place], [place] [address] Telecom: Name: Yanira Chen LPN Position: CONTINUOUS PICKLING LINE PICKLER Member Role: Other Name: FITZ GA MD Position: P4 Physician - Primary Care Member Role: Primary Care Physician Address: [address] Telecom: Name: Britni Otto Position: Quality Review Member Role: Power Wheelchair Mechanic Care Team Related Persons Name: KWAKU MASON Care Team Personnel Name: ANTOLIN DICKENS Position: Hospitalist Advanced Practice Nurse Member Role: Pain Management Address: [address] [place] [address] Telecom: Name: DAQUAN MERCADO MD Member Role: Pain Management Address: [address] [facility] [place] [address]- [place] Tele[employer]: Name: Yanira Chen LPN Position: CONTINUOUS PICKLING LINE PICKLER Member Role: Other Name: FITZ GA MD Position: P4 Physician - Primary Care Member Role: Primary Care Physician Address: [address] [place], [place] [address] Telecom: Name: Britni Otto Position: Quality Review Member Role: Power Wheelchair Mechanic Care Team Related Persons Name: KWAKU MASON Care Team Personnel Name: ANTOLIN DICKENS Position: Hospitalist Advanced Practice Nurse Member Role: Pain Management Address: [address] [place] [phone] [place] Telecom: Name: DAQUAN MERCADO MD Member Role: Pain Management Address: [address] [facility] [place] [address]- [place] Telecom: Name: Yanira Chen LPN Position: CONTINUOUS PICKLING LINE PICKLER Member Role: Other Name: FITZ GA MD Position: P4 Physician - Primary Care Member Role: Primary Care Physician Address: [address] Telecom: Name: Britni Otto Position: Quality Review Member Role: Power Wheelchair Mechanic Care Team Related Persons Name: KWAKU MASON Care Team Personnel Name: ANTOLIN DICKENS Position: Hospitalist Advanced Practice Nurse Member Role: Pain Management Address: [address] [place] [address]- [place] Telecom: Name: DAQUAN MERCADO MD Member Role: Pain Management Address: [address] [facility] Pain [place] [address]- [place] Tele[employer]: Name: Yanira Chen LPN Position: CONTINUOUS PICKLING LINE PICKLER Member Role: Other Name: FITZ GA MD Position: P4 Physician - Primary Care Member Role: Primary Care Physician Address: [address] Telecom: Name: Britni Otto Position: Quality Review Member Role: Power Wheelchair Mechanic Care Team Related Persons Name: KWAKU MASON Care Team Personnel Name: ANTOLIN DICKENS Position: Hospitalist Advanced Practice Nurse Member Role: Pain Management Address: [address] Telecom: Name: DAQUAN MERCADO MD Member Role: Pain Management Address: [address] [facility] [place] [address]- [place] Tele[employer]: Name: Yanira Chen LPN Position: CONTINUOUS PICKLING LINE PICKLER Member Role: Other Name: FITZ GA MD Position: P4 Physician - Primary Care Member Role: Primary Care Physician Address: [address] Telecom: Name: Britni Otto Position: Quality Review Member Role: Power Wheelchair Mechanic Care Team Related Persons Name: SUZIEJULIO KWAKU Care Team Personnel Name: ANTOLIN DICKENS Position: Hospitalist Advanced Practice Nurse Member Role: Pain Management Address: [address] Telecom: Name: DAQUAN MERCADO MD Member Role: Pain Management Address: [address] [facility] [place] [address]- [place] Tele[employer]: Name: Yanira Chen LPN Position: CONTINUOUS PICKLING LINE PICKLER Member Role: Other Name: FITZ GA MD Position: P4 Physician - Primary Care Member Role: Primary Care Physician Address: [address] Telecom: Name: Britni Otto Position: Quality Review Member Role: Power Wheelchair Mechanic Care Team Related Persons Name: KWAKU MASON Care Team Personnel Name: ANTOLIN DICKENS Position: Hospitalist Advanced Practice Nurse Member Role: Pain Management Address: [address] Telecom: Name: DAQUAN MERCADO MD Member Role: Pain Management Address: [address] [facility] [place] [address] [place] Telecom: Name: Yanira Chen LPN Position: CONTINUOUS PICKLING LINE PICKLER Member Role: Other Name: FITZ GA MD Position: P4 Physician - Primary Care Member Role: Primary Care Physician Address: [address] Telecom: Name: Britni Otto Position: Quality Review Member Role: Power Wheelchair Mechanic Care Team Related Persons Name: KWAKU MASON Care Team Personnel Name: ANTOLIN DICKENS Position: Hospitalist Advanced Practice Nurse Member Role: Pain Management Address: [address] [place] [address] Telecom: Name: DAQUAN MERCADO MD Member Role: Pain Management Address: [address] [facility] [place], [place] [address] Telecom: Name: Yanira Chen LPN Position: CONTINUOUS PICKLING LINE PICKLER Member Role: Other Name: FITZ GA MD Position: P4 Physician - Primary Care Member Role: Primary Care Physician Address: [address] Telecom: Name: Britni Otto Position: Quality Review Member Role: Power Wheelchair Mechanic Care Team Related Persons Name: KWAKU MASON Care Team Personnel Name: ANTOLIN DICKENS Position: Hospitalist Advanced Practice Nurse Member Role: Pain Management Address: [address] [place] [address]- [place] Tele[employer]: Name: DAQUAN MERCADO MD Member Role: Pain Management Address: [address] [facility] [place] [address]- [place] Tele[employer]: Name: Yanira Chen LPN Position: CONTINUOUS PICKLING LINE PICKLER Member Role: Other Name: FITZ GA MD Position: P4 Physician - Primary Care Member Role: Primary Care Physician Address: [address] Telecom: Name: Britni Otto Position: Quality Review Member Role: Power Wheelchair Mechanic Care Team Related Persons Name: KWAKU MASON Care Team Personnel Name: ANTOLIN DICKENS Position: Hospitalist Advanced Practice Nurse Member Role: Pain Management Address: [address] Telecom: Name: DAQUAN MERCADO MD Member Role: Pain Management Address: [address] [facility] Management [place], [place] [address] Telecom: Name: Yanira Chen LPN Position: CONTINUOUS PICKLING LINE PICKLER Member Role: Other Name: FITZ GA MD Position: P4 Physician - Primary Care Member Role: Primary Care Physician Address: [address] Telecom: Name: Britni Otto Position: Quality Review Member Role: Power Wheelchair Mechanic Care Team Related Persons Name: KWAKU MASON Care Team Personnel Name: ANTOLIN DICKENS Position: Hospitalist Advanced Practice Nurse Member Role: Pain Management Address: [address] Telecom: Name: DAQUAN MERCADO MD Member Role: Pain Management Address: [address] [facility] [place] [address]- [place] Tele[employer]: Name: Yanira Chen CONTINUOUS PICKLING LINE PICKLER Position: CONTINUOUS PICKLING LINE PICKLER Member Role: Other Name: FITZ GA MD Position: P4 Physician - Primary Care Member Role: Primary Care Physician Address: [address] [place] [address] [id number] Tele[facility]: Name: Britni Otto Position: Quality Review Member Role: Power Wheelchair Mechanic Care Team Related Persons Name: ISABELLA KWAKU Care Team (unrecognized sect ion and content) Care Team Personnel Name: ANTOLIN DICKENS Position: P4 Advanced Practice Nurse Med Service: Active Provider Member Role: Pain Management Address: Address: [address] [facility] [place], [place] [address] Name: Yanira Liz Position: P3 Scheduling - Tracer Bullet Section Supervisor Advanced Member Role: Other Name: DAQUAN MERCADO MD Position: P4 Physician - General Surgery Med Service: Active Provider Member Role: Pain Management Address: Address: [address] [facility] [place], [place] [address] Name: FITZ GA MD Position: P4 Physician - Primary Care Med Service: Active Provider Member Role: Primary Care Physician Address: Address: [address] [place] [address] Name: Britni Otto Position: Quality Review Member Role: Power Wheelchair Mechanic Name: BUNNY Chilel Position: AO RN Member Role: Power Wheelchair Mechanic Care Team Related Persons Name: ISABELLA MALVIN Address: [address] [phone] Care Team Personnel Name: ANTOLIN DICKENS Position: P4 Advanced Practice Nurse Med Service: Active Provider Member Role: Pain Management Address: Address: [address] [facility] [place] [place] [address]- Name: Yanira Liz Position: P3 Scheduling - Tracer Bullet Section Supervisor Advanced Member Role: Other Name: DAQUAN MERCADO MD Position: P4 Physician - General Surgery Med Service: Active Provider Member Role: Pain Management Address: Address: [address] [facility] [place] [address]- Name: FITZ GA MD Position: P4 Physician - Primary Care Med Service: Active Provider Member Role: Primary Care Physician Address: Address: [address] [place] [address] Name: Britni Otto Position: Quality Review Member Role: Power Wheelchair Mechanic Name: BUNNY Chilel Position: P3 etcher machine Member Role: Power Wheelchair Mechanic Care Team Related Persons Name: MALVIN MASON Address: Home [address] [place] [phone] [place] Care Team Personnel Name: ANTOLIN DICKENS APRN-HABILITATION ASSISTANT Position: P4 Advanced Practice Nurse Address: Address: [address] [facility] [place], [place] [address] Name: Yanira Liz Position: P3 Scheduling - Tracer Bullet Section Supervisor Advanced Member Role: Other Name: DAQUAN MERCADO MD Position: P4 Physician - General Surgery Address: Address: [address] [facility] [place], [place] [address] Name: FITZ GA MD Position: P4 Physician - Primary Care Member Role: Primary Care Physician Address: Address: [address] [place] [address] [facility] Position: Quality Review Member Role: Power Wheelchair Mechanic Name: BUNNY Chilel Position: AO RN Member Role: Power Wheelchair Mechanic Care Team Related Persons Name: ISABELLAMALVIN Address: Home [address] [place] [phone] Care Team Personnel Name: ANTOLIN DICKENSHABILITATION ASSISTANT Position: P4 Advanced Practice Nurse Address: Address: [address] [facility] [place], [place] [address] Name: Yanira Liz Position: P3 Scheduling - Tracer Bullet Section Supervisor Advanced Member Role: Other Name: DAQUAN MERCADO MD Position: P4 Physician - General Surgery Address: Address: [address] [facility] [place], [place] [address] Name: FITZ GA MD Position: P4 Physician - Primary Care Member Role: Primary Care Physician Address: Address: [address] [facility] [address] [place] [id number] Name: Britni Otto Position: Quality Review Member Role: Power Wheelchair Mechanic Name: BUNNY Chilel Position: AO RN Member Role: Power Wheelchair Mechanic Name: RODRI SY DO Position: ED Physician Member Role: Attending Physician Address: Address: [address] [place], [place] [address] Care Team Related Persons Name: MALVIN MASON Address: Home [address] [place] [phone] [place] Care Team Personnel Name: ANTOLIN DICKENS APRN-HABILITATION ASSISTANT Position: P4 Advanced Practice Nurse Address: Address: [address] [facility] [address] Name: Yanira Liz Position: P3 Scheduling - Tracer Bullet Section Supervisor Advanced Member Role: Other Name: DAQUAN MERCADO MD Position: P4 Physician - General Surgery Address: Address: [address] [facility] [place] [id number] Name: FITZ GA MD Position: P4 Physician - Primary Care Member Role: Primary Care Physician Address: Address: [address] [place] [address] Name: Clarita Britnimarcin Ibrahim Position: Quality Review Member Role: Power Wheelchair Mechanic Name: BUNNY Chilel Position: AO RN Member Role: Power Wheelchair Mechanic Name: HARSHAD TEIXEIRA MD Position: ED Physician Member Role: ED Physician Address: Address: [address] [place] [address]- Name: BUNNY Turner Position: AO RN Member Role: ED RN Care Team Related Persons Name: MALVIN MASON Address: Home [id number] [place] [phone] [place] Care Team Personnel Name: ANTOLIN DICKENS APRN-SHANTELL Position: P4 Advanced Practice Nurse Med Service: Active Provider Member Role: Pain Management Address: Address: [address] [facility] [place], [place] [address] [place] [address] Name: Yanira Liz Position: P3 Scheduling - Tracer Bullet Section Supervisor Advanced Member Role: Other Name: DAQUAN MERCADO MD Position: P4 Physician - General Surgery Med Service: Active Provider Member Role: Pain Management Address: Address: [address] [facility] [place] [address]- Name: FITZ GA MD Position: P4 Physician - Primary Care Med Service: Active Provider Member Role: Primary Care Physician Address: Address: [address] [place] [id number] Name: Britni Otto Position: Quality Review Member Role: Power Wheelchair Mechanic Care Team Related Persons Name: MALVIN MASON Address: Home [address] [place], [place] [phone] [place] Care Team Personnel Name: ANTOLIN DICKENS Position: P4 Advanced Practice Nurse Member Role: Pain Management Address: Address: [address] [facility] [place], [place] [address] Name: Yanira Liz Position: P3 Scheduling - Tracer Bullet Section Supervisor Advanced Member Role: Other Name: DAQUAN MERCADO MD Position: P4 Physician - General Surgery Member Role: Pain Management Address: Address: [address] [facility] [place] [address]- Name: FITZ GA MD Position: P4 Physician - Primary Care Member Role: Primary Care Physician Address: Address: [address] [facility] [address] [place] [address] Name: Britni Otto Position: Quality Review Member Role: Power Wheelchair Mechanic Care Team Related Persons Name: MALVIN MASON Address: Home [address] [place], [place] [phone] Care Team Personnel Name: ANTOLIN DICKENSHABILITATION ASSISTANT Position: P4 Advanced Practice Nurse Member Role: Pain Management Address: Address: [address] [facility] [place] [address]- Name: Yanira Liz Position: P3 Scheduling - Tracer Bullet Section Supervisor Advanced Member Role: Other Name: DAQUAN MERCADO MD Position: P4 Physician - General Surgery Member Role: Pain Management Address: Address: [address] [place] [address]- [place] Name: FITZ GA MD Position: P4 Physician - Primary Care Member Role: Primary Care Physician Address: Address: [facility] [place] [address]- Name: Britni Otto Position: Quality Review Member Role: Power Wheelchair Mechanic Care Team Related Persons Name: MALVIN MASON Address: Home [address] [place], [place] [phone] Care Team Personnel Name: ANTOLIN DICKENS Position: P4 Advanced Practice Nurse Member Role: Pain Management Address: Address: [address] [facility] [place] [address]- Name: Yanira Liz Position: P3 Scheduling - Tracer Bullet Section Supervisor Advanced Member Role: Other Name: DAQUAN MERCADO MD Position: P4 Physician - General Surgery Member Role: Pain Management Address: Address: [address] [facility] [place] [address]- Name: FITZ GA MD Position: P4 Physician - Primary Care Member Role: Primary Care Physician Address: Address: [facility] [place] [address]- Name: Britni Otto Position: Quality Review Member Role: Power Wheelchair Mechanic Care Team Related Persons Name: MALVIN MASON Address: Home [id number] [place] [phone] Care Team Personnel Name: ANTOLIN DICKENS Position: P4 Advanced Practice Nurse Member Role: Pain Management Address: Address: [address] [facility] [place] [address]- [place] Name: Yanira Liz Position: P3 Scheduling - Tracer Bullet Section Supervisor Advanced Member Role: Other Name: DAQUAN MERCADO MD Position: P4 Physician - General Surgery Member Role: Pain Management Address: Address: [address] [facility] [place] [address]- [place] Name: FITZ GA MD Position: P4 Physician - Primary Care Member Role: Primary Care Physician Address: Address: [address] [place] [address] [place] Name: SarayjulioBritni Position: Quality Review Member Role: Power Wheelchair Mechanic Care Team Related Persons Name: MALVIN MASON Address: Home [address] [place] [address] [place] [phone] FOR RECORDS PERTAINING TO PATIENTS WHO ARE [...] BE BASED ON THE PRIMARY CLINICAL RECORDS. [facility] [employer] provides no warranty or guarantee of the accuracy or completeness of information in this document.
[2025-09-15 08:20] LABS: Hematocrit 30.1 % (37-47); Hemoglobin 9.4 g/dL (12.0-15.0); Mean Corp Hgb Conc 31.2 g/dL (32-36); Mean Corpuscular Volume 99.0 fL (81-99); Mean Platelet Vol. 9.3 fl (6.2-12.0); Platelet Count 180 K/mm3 (150-450); RBC Distribution Width CV 14.0 % (11.6-14.6); RBC Distribution Width SD 50.3 fl (35.1-43.9); Red Blood Count 3.04 M/mm3 (4.2-5.4); White Blood Count 5.1 K/mm3 (4.4-11.0)
== END ==
LOC: OLS.SWAL 04:00
PROVIDERS: PCP Internal Medicine; Referring Provider Internal Medicine; Visit Provider Internal Medicine
DX: D64.9 Anemia, unspecified (principal)
CPT/HCPCS: 36415; 85027

== ENCOUNTER → 2025-09-29 05:00 | Outpatient (REF) | payer MEDICARE, SELFPAY ==
--- OUTSIDE RECORDS SUMMARY | 2025-09-29 03:59 | XMS RPT_ITS | CCD ---
Author Organization [facility] Care Team Providers Care Electrocardiogram Technician Name Role Phone FITZ GA MD [...] sources) Codeine; Translations: [codeine] Drug Allergy N/V [facility] (20 sources) Penicillin; Translations: [penicillin] Drug Allergy RASH [facility] (20 sources) predniSONE; Translations: [prednisone] Drug Allergy Nausea (finding) [facility] (20 sources) Tetracycline; Translations: [tetracycline] Drug Allergy Unknown [facility] (20 sources) egg albumin (whites) Allergy to substance Unknown [facility] Medications Current Medications Medication Drug [...] BID, # 180 tab(s), 3 Refill(s), Pharmacy: [facility], 157.5, cm, 03/20/25 10:23:00 EDT, Height, 68.4, kg, 03/20/25 10:23:00 EDT, Dosing Weight Start Date: 04/29/25 Stop Date: 04/24/26 Status: Ordered Medication Dispense Status: Completed Quantity: 180.0 Unit: tab(s) Total Allowed Fills: 4 Fills Dispensed: 0 Start: 10-13-2022 End: 04-07-2025 Eliquis 5 mg oral tablet Dos e : 5 mg = 1 tab(s), Oral, BID, # 180 tab(s), 3 Refill(s), Pharmacy: [facility], 157, cm, 04/12/24 11:01:00 [...] qDay, # 90 tab(s), 3 Refill(s), Pharmacy: [facility], 157, cm, 03/06/25 13:18:00 EDT, Height, kg, 03/06/25 13:18:00 EDT, Dosing Weight Start Date: 03/18/25 Stop Date: 03/13/26 Status: Ordered Medication Dispense Status: Completed Quantity: 90.0 Unit: tab(s) Total Allowed Fills: 4 Fills Dispensed: 0 Start: 07-14-2023 End: 01-06-2025 atorvastatin 10 mg oral tabl et Dose : 10 mg = 1 tab(s), Oral, qDay, # 90 tab(s), 3 Refill(s), Pharmacy: [facility], 160, cm, 01/12/24 10:53:00 EDT, Height, kg, 01/12/24 10:53:00 EDT, Dosing Weight Start Date: 01/12/24 Stop Date: 01/06/25 Status: Ordered Quantity: 90.0 Unit: tab(s) Repeat number: 4 Start: 09-28-2021 End: 07-02-2023 atorvastatin 10 mg oral tabl et Dose : 10 mg = 1 tab(s), Oral, qDay, # 90 tab(s), 3 Refill(s), [id number], 157, cm, 07/07/22 9:44:00 EDT, Height, kg, 07/07/22 9:44:00 EDT, Dosing Weight Start Date: 07/07/22 Stop Date: 07/02/23 Status: Ordered Start: 08-30-2021 atorvastatin 1 0 mg oral tablet Dose : 10 mg = 1 tab(s), Oral, qDay, # 30 tab(s), 0 Refill(s), [facility] [address] [facility] [facility], cm, 08/27/21 9:15:00 EST, Height, kg, 08/27/21 9:15:00 EST, Dosing Weight Start Date: 08/30/21 Status: Ordered Start: 08-04-2020 atorvastatin 1 0 mg oral tablet Dose : 10 mg = 1 tab(s), Oral, qDay, # 90 tab(s), 3 Refill(s), [facility] [address] 158, cm, 08/04/20 10:48:00 EDT, Height, kg, 08/04/20 10:48:00 EDT, Dosing Weight Start Date: 08/04/20 Status: Ordered cephalexin 500 mg oral capsule (1 source) Cephalosporin Antibacterial Start: 11-24-2022 End: 12-01-2022 cephalexin 500 mg oral capsule Dose : 500 mg = 1 cap(s), Oral, TID, X 7 day(s), # 21 cap(s), 0 Refill(s), 12/01/22 11:50:00 EST, [facility]: [facility][id number], Contusion of face Knee contusion, 160, cm, 11/24/22 11:24:00 EST, Height, 76.5 Start Date: 11/24/22 Stop Date: 12/01/22 Status: Ordered cholestyramine resin 4000 mg powder for oral suspension (2 sources) Bile Acid Sequestrant Start: 11-30-2021 cholesty ramine 4 g/9 g oral powder for reconstitution 1 packet(s), Oral, BID, # 60 packet(s), 11 Refill(s), [facility] [address] Sinusitis Diarrhea, 159, cm, 11/30/21 11:16:00 EST, Height, kg, 11/30/21 11:16:00 EST, Dosing Weight Start Date: 11/30/21 Status: Ordered citalopram 40 mg oral tablet (20 sources) Serotonin Reuptake Inhibitor Start: 04-12-2024 citalopram 40 mg ora l tablet Dose : 40 mg = 1 tab(s), Oral, qDay, # 90 tab(s), 3 Refill(s), Pharmacy: [facility] [place] [facility], 157, cm, 04/12/24 11:01:00 EDT, Height, kg, 04/12/24 11:01:00 EDT, Dosing Weight Start Date: 04/12/24 Status: Ordered Start: 07-14-2023 citalopram 40 mg oral tablet Dose : 40 mg = 1 tab(s), Oral, qDay, # 90 tab(s), 3 Refill(s), [facility]: [facility][id number], 157, cm, 07/14/23 10:36:00 EDT, Height, kg, 07/14/23 10:36:00 EDT, Dosing Weight Start Date: 07/14/23 Status: Ordered Start: 04-14-2023 citalopram 20 mg oral tablet Dose : 20 mg = 1 tab(s), Oral, qDay, # 90 tab(s), 3 Refill(s), [facility]: [facility][id number], 160, cm, 04/14/23 10:24:00 EDT, Height, kg, 04/14/23 10:24:00 EDT, Dosing Weight Start Date: 04/14/23 Status: Ordered Start: 07-07-2022 citalopram 20 mg oral tablet Dose : 20 mg = 1 tab(s), Oral, qDay, # 90 tab(s), 3 Refill(s), [facility]: [facility] #[id number], 157, cm, 07/07/22 9:44:00 EDT, Height, kg, [...] qDay, # 30 tab(s), 11 Refill(s), Pharmacy: [facility], 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 (CKD), 157, cm, 04/12/24 11:01:00 EDT, Height, kg, 04/12/24 11:01:00 EDT, Dosing Weight Start Date: 07/09/24 Status: Ordered Start: 07-14-2023 Farxiga 10 mg oral tablet Dose : 10 mg = 1 tab(s), Oral, qDay, # 30 tab(s), 11 Refill(s), [facility]: [facility] #[id number], Type 2 diabetes mellitus with chronic kidney [...] qDay, # 90 tab(s), 3 Refill(s), Pharmacy: [facility], Diabetes Diastolic dysfunction, 157, cm, [...] qDay, # 90 tab(s), 3 Refill(s), Pharmacy: [facility], Diabetes Diastolic dysfunction, 157, cm, 12/05/24 [...] 0 Refill(s), 01/19/24 11:45:00 AM EDT, Pharmacy: [facility], Well adult exam Acquired hypothyroidism, 160, cm, 01/12/24 10:53:00 EDT, Height, 71.7, kg, 01/12/24 10:53:00 EDT, Dosing Weight Start Date: 01/12/24 Stop Date: 01/19/24 Status: Ordered furosemide 20 mg oral tablet (20 sources) Loop Diuretic Start: 12-05-2024 furosemide 20 mg oral tablet Dose : 20 mg = 1 tab(s), Oral, qDay, # 90 tab(s), 3 Refill(s), Pharmacy: [facility], 157, cm, 12/05/24 14:45:00 EST, Height, kg, 12/05/24 14:45:00 EST, Dosing Weight Start Date: 12/05/24 Status: Ordered Medication Dispense Status: Completed Quantity: 90.0 Unit: tab(s) Total Allowed Fills: 4 Fills Dispensed: 0 Start: 04-12-2024 End: 07-11-2024 furosemide 40 mg oral tablet Dose : 20 mg = 0.5 tab(s), Oral, Daily, # 15 tab(s), 2 Refill(s), Pharmacy: [facility], Hyperlipidemia Acquired hypothyroidism, 157, cm, 04/12/24 11:01:00 EDT, Height, kg, 04/12/24 11:01:00 EDT, Dosing Weight Start Date: 04/12/24 Stop Date: 07/11/24 Status: Ordered Start: 03-03-2023 Lasix 20 mg or al tablet Dose : 20 mg = 1 tab(s), Oral, Daily, # 90 tab(s), 1 Refill(s), [facility]: [id number], 160, cm, 02/02/23 11:34:00 EDT, Height, kg, 02/02/23 11:34:00 EDT, Dosing Weight Start Date: 03/03/23 Status: Ordered Start: 09-28-2021 Lasix 20 mg or al tablet Dose : 20 mg = 1 tab(s), Oral, Daily, # 90 tab(s), 0 Refill(s), [facility]: [facility] #[id number], 160, cm, 11/24/22 11:24:00 EST, Height, kg, [...] TID, # 270 cap(s), 3 Refill(s), Pharmacy: [facility], Lumbar spinal stenosis, 157, cm, 04/12/24 11:01:00 EDT, Height, 72.3, kg, 04/12/24 11:01:00 EDT, Dosing Weight Start Date: 04/12/24 Stop Date: 04/07/25 Status: Ordered Start: 01-12-2024 End: 07-10-2024 gabapentin 600 mg oral table t Dose : 600 mg = 1 tab(s), Oral, TID, # 270 tab(s), 1 Refill(s), Pharmacy: [facility], Neuropathy, 160, cm, 01/12/24 10:53:00 EDT, Height, 71.7, kg, 01/12/24 10:53:00 EDT, Dosing Weight Start Date: 01/12/24 Stop Date: 07/10/24 Status: Ordered Start: 02-01-2023 End: 01-10-2024 gabapentin 600 mg oral table t Dose : 600 mg = 1 tab(s), Oral, TID, # 270 tab(s), 1 Refill(s), [facility]: [facility] #[id number], Neuropathy, 157, cm, 07/14/23 10:36:00 EDT, Height, 75.6, kg, 07/14/23 10:36:00 EDT, Dosing Weight Start Date: 07/14/23 Stop Date: 01/10/24 Status: Ordered Start: 06-03-2022 End: 01-29-2023 gabapentin 600 mg oral table t Dose : 600 mg = 1 tab(s), Oral, TID, # 270 tab(s), 1 Refill(s), [facility]: [facility] #[id number], Neuropathy, 160, cm, 08/02/22 10:34:00 EDT, Height, [...] bedtime, # 120 tab(s), 2 Refill(s), Pharmacy: [address], Lumbar spinal stenosis, 162.6, cm, 03/03/22 [...] bedtime, # 120 tab(s), 2 Refill(s), Pharmacy: [address], Lumbar spinal stenosis, 157.5, cm, 10/26/21 [...] qDay, # 30 tab(s), 2 Refill(s), Pharmacy: [facility], 157, cm, 12/05/24 14:45:00 EST, Height, kg, 01/02/25 14:37:00 EDT, Dosing Weight Start Date: 01/09/25 Status: Ordered Quantity: 30.0 Unit: tab(s) Repeat number: 3 Start: 06-14-2023 glimepiride 1 mg oral tablet Dose : 1 mg = 1 tab(s), Oral, qDay, # 90 tab(s), 3 Refill(s), [facility]: [facility] #[id number], 157, cm, 06/07/23 14:25:00 EDT, Height, kg, 06/07/23 14:25:00 EDT, Dosing Weight Start Date: 06/14/23 Status: Ordered Start: 03-31-2022 glimepiride 1 mg oral tablet Dose : 1 mg = 1 tab(s), Oral, qDay, # 90 tab(s), 3 Refill(s), [facility] 158, cm, 03/31/22 11:03:00 EDT, Height Start Date: 03/31/22 Status: Ordered Start: 02-17-2022 glimepiride 2 mg oral tablet Dose : 2 mg = 1 tab(s), Oral, qDay, # 90 tab(s), 3 Refill(s), [facility] 158.5, cm, 02/17/22 8:57:00 [...] qDayAC, # 90 tab(s), 3 Refill(s), Pharmacy: [facility], 157, cm, 03/06/25 13:18:00 EDT, Height, kg, 03/06/25 13:18:00 EDT, Dosing Weight Start Date: 03/06/25 Status: Ordered Medication Dispense Status: Completed Quantity: 90.0 Unit: tab(s) Total Allowed Fills: 4 Fills Dispensed: 0 Start: 10-13-2023 levothyroxine 25 mcg (0.025 mg) oral tablet Dose : 25 mcg = 1 tab(s), Oral, qDayAC, # 90 tab(s), 3 Refill(s), Pharmacy: [facility], 160, cm, 10/13/23 10:47:00 EST, Height, kg, 10/13/23 10:47:00 EST, Dosing Weight Start Date: 10/13/23 Status: Ordered Start: 07-14-2023 levothyroxine 50 mcg (0.05 mg) oral tablet Dose : 50 mcg = 1 tab(s), Oral, qDay, # 90 tab(s), 3 Refill(s), [facility]: [facility] #[id number], 157, cm, 07/14/23 10:36:00 EDT, Height, kg, 07/14/23 10:36:00 EDT, Dosing Weight Start Date: 07/14/23 Status: Ordered Start: 07-07-2023 levothyroxine 50 mcg (0.05 mg) oral tablet Dose : 50 mcg = 1 tab(s), Oral, qDay, # 90 tab(s), 3 Refill(s), [id number], 160, cm, 04/14/23 10:24:00 EDT, Height, kg, 04/14/23 10:24:00 EDT, Dosing Weight Start Date: 04/14/23 Status: Ordered Start: 07-07-2022 levothyroxine 50 mcg (0.05 mg) oral tablet Dose : 50 mcg = 1 tab(s), Oral, qDay, # 90 tab(s), 3 Refill(s), [facility][id number], 157, cm, 07/07/22 9:44:00 EDT, Height, kg, [...] qHS, # 30 tab(s), 2 Refill(s), Pharmacy: [facility], [facility], 157.5, cm, 05/09/25 10:33:00 EDT, Height, [...] 0 Refill(s), 03/02/25 3:21:00 PM EDT, Pharmacy: [facility], Major depressive disorder, 157, cm, [...] BID, # 60 tab(s), 8 Refill(s), Pharmacy: [facility], 157.5, cm, 05/09/25 10:33:00 EDT, [...] release), # 180 tab(s), 1 Refill(s), Pharmacy: [facility], 157.5, cm, 03/20/25 10:23:00 EDT, [...] qDay, # 90 tab(s), 3 Refill(s), Pharmacy: [facility], 157, cm, 12/05/24 14:45:00 EST, [...] 90 tab(s), 3 Refill(s), [facility]: [facility] #[id number], 157, cm, 07/07/22 9:44:00 EDT, Height, kg, [...] qDay, # 30 tab(s), 11 Refill(s), Pharmacy: [facility], 157.5, cm, 06/17/25 11:12:00 EDT, Height, kg, [...] 90 tab(s), 1 Refill(s), [facility]: [facility] #[id number], 160, cm, 02/02/23 11:34:00 EDT, Height, kg, 02/02/23 11:34:00 EDT, Dosing Weight Start Date: 03/03/23 Status: Ordered Start: 09-28-2021 potassium chlo ride 8 mEq (600 mg) oral tablet, extended release Dose : 8 mEq = 1 tab(s), Oral, qDay, take with food., # 90 tab(s), 0 Refill(s), [facility]: [facility] #[id number], 160, cm, 11/24/22 11:24:00 EST, Height, kg, [...] 180 tab(s), 3 Refill(s), [facility]: [facility] #[id number], 160, cm, 04/14/23 10:24:00 EDT, Height, kg, 04/14/23 10:24:00 EDT, Dosing Weight Start Date: 04/14/23 Status: Ordered Start: 07-07-2022 sotalol 80 mg oral tablet Dose : 80 mg = 1 tab(s), Oral, BID, # 180 tab(s), 3 Refill(s), [facility]: [facility] #[id number], 157, cm, 07/07/22 9:44:00 EDT, Height, kg, [...] day(s), # 28 tab(s), 0 Refill(s), Pharmacy: [facility], 157, cm, 02/20/25 9:22:00 EDT, [...] qHS, # 30 tab(s), 1 Refill(s), Pharmacy: [facility], 157.5, cm, 03/20/25 10:23:00 EDT, Height, kg, 03/20/25 10:23:00 EDT, Dosing Weight Start Date: 04/22/25 Stop Date: 06/21/25 Status: Ordered Medication Dispense Status: Completed Quantity: 30.0 Unit: tab(s) Total Allowed Fills: 2 Fills Dispensed: 0 Start: 02-20-2025 End: 04-21-2025 cyclobenzaprine 10 mg oral t ablet Dose : 10 mg = 1 tab(s), Oral, qHS, # 30 tab(s), 1 Refill(s), Pharmacy: [facility], 157, cm, 02/20/25 9:22:00 EDT, Height, kg, 02/20/25 9:22:00 EDT, Dosing Weight Start Date: 02/20/25 Stop Date: 04/21/25 Status: Ordered Quantity: 30.0 Unit: tab(s) Repeat number: 2 Start: 12-05-2024 End: 06-03-2025 cyclobenzaprine 5 mg oral ta blet Dose : 5 mg = 1 tab(s), Oral, qHS, # 90 tab(s), 1 Refill(s), Pharmacy: [facility], Diabetes Diastolic dysfunction, 157, cm, [...] spasm, # 90 tab(s), 1 Refill(s), Pharmacy: [facility], 157, cm, 04/12/24 11:01:00 EDT, Height, kg, 04/12/24 11:01:00 EDT, Dosing Weight Start Date: 04/12/24 Stop Date: 06/11/24 Status: Ordered Start: 01-02-2024 End: 03-12-2024 cyclobenzaprine 10 mg oral t ablet Dose : 10 mg = 1 tab(s), Oral, TID, PRN for muscle spasm, # 90 tab(s), 1 Refill(s), Pharmacy: [facility], 160, cm, 01/12/24 10:53:00 EDT, Height, kg, 01/12/24 10:53:00 EDT, Dosing Weight Start Date: 01/12/24 Stop Date: 03/12/24 Status: Ordered Start: 07-14-2023 End: 09-12-2023 cyclobenzaprine 10 mg oral t ablet Dose : 10 mg = 1 tab(s), Oral, TID, PRN for muscle spasm, # 90 tab(s), 1 Refill(s), Pharmacy: [facility] #[id number], 157, cm, 07/14/23 10:36:00 EDT, Height, kg, 07/14/23 10:36:00 EDT, Dosing Weight Start Date: 07/14/23 Stop Date: 09/12/23 Status: Ordered Start: 04-14-2023 End: 06-13-2023 cyclobenzaprine 10 mg oral t ablet Dose : 10 mg = 1 tab(s), Oral, TID, PRN for muscle spasm, # 90 tab(s), 1 Refill(s), Pharmacy: [facility] #[id number], 160, cm, 04/14/23 10:24:00 EDT, Height, kg, 04/14/23 10:24:00 EDT, Dosing Weight Start Date: 04/14/23 Stop Date: 06/13/23 Status: Ordered Start: 10-13-2022 End: 12-12-2022 cyclobenzaprine 10 mg oral t ablet Dose : 10 mg = 1 tab(s), Oral, TID, PRN for muscle spasm, # 90 tab(s), 1 Refill(s), Pharmacy: [facility] #[id number], 160, cm, 10/13/22 10:58:00 EST, Height, kg, 10/13/22 10:58:00 EST, Dosing Weight Start Date: 10/13/22 Stop Date: 12/12/22 Status: Ordered Start: 07-07-2022 End: 09-05-2022 cyclobenzaprine 10 mg oral t ablet Dose : 10 mg = 1 tab(s), Oral, TID, PRN for muscle spasm, # 90 tab(s), 1 Refill(s), Pharmacy: [facility] #[id number], 157, cm, 07/07/22 9:44:00 EDT, Height, kg, 07/07/22 9:44:00 EDT, Dosing Weight Start Date: 07/07/22 Stop Date: 09/05/22 Status: Ordered Start: 03-31-2022 End: 05-30-2022 cyclobenzaprine 10 mg oral t ablet Dose : 10 mg = 1 tab(s), Oral, TID, PRN for muscle spasm, # 90 tab(s), 1 Refill(s), Pharmacy: [facility] [address] 158, cm, 03/31/22 11:03:00 EDT, Height Start Date: 03/31/22 Stop Date: 05/30/22 Status: Ordered Start: 02-17-2022 End: 04-18-2022 cyclobenzaprine 5 mg oral ta blet Dose : 5 mg = 1 tab(s), Oral, TID, # 90 tab(s), 1 Refill(s), Pharmacy: [facility] Chronic diarrhea Low back pain, 158.5, cm, 02/17/22 8:57:00 EDT, Height Start Date: 02/17/22 Stop Date: 04/18/22 Status: Ordered Start: 08-10-2021 End: 11-26-2021 cyclobenzaprine 10 mg oral t ablet Dose : 10 mg = 1 tab(s), Oral, qHS, PRN Muscle pain, # 30 tab(s), 1 Refill(s), 11/26/21 15:30:00 EST, Pharmacy: [facility] 162.6, cm, 07/14/21 9:02:00 [...] width (RBC) [Ratio] 14.6 % Normal 11.6-14.6 [facility] Comment on above: Order Comment: 162 Performed By: #### L 100.0500 #### [facility] [address] [place], [address] Hematocrit (Bld) [Volume fraction] 37.7 % Normal 37-47 [facility] Comment on above: Order Comment: 162 Performed By: #### L 100.0500 #### [facility] [address] [place], [address] Hemoglobin (Bld) [Mass/Vol] 11.9 g/dL Low 12.0-15.0 [facility] Comment on above: Order Comment: 162 Performed By: #### L 100.0500 #### [facility] [address] [place], [address] MCH (RBC) [Entitic mass] 31.5 pg Normal 27.0-32.0 [facility] Comment on above: Order Comment: 162 Performed By: #### L 100.0500 #### [facility] [address] [place], [address] MCHC (RBC) [Mass/Vol] 31.6 g/dL Low 32-36 [facility] Comment on above: Order Comment: 162 Performed By: #### L 100.0500 #### [facility] [address] [place], [address] MCV (RBC) [Entitic vol] 99.7 fL High 81-99 [facility] Comment on above: Order Comment: 162 Performed By: #### L 100.0500 #### [facility] [address] [place], [address] Platelet mean volume (Bld) [Entitic vol] 9.4 fL Normal 6.2-12.0 [facility] Comment on above: Order Comment: 162 Performed By: #### L 100.0500 #### [facility] [address] [place], [address] Platelets (Bld) [#/Vol] 192 10*3/uL Normal 150-450 [facility] Comment on above: Order Comment: 162 Performed By: #### L 100.0500 #### [facility] [address] [place], [address] RBC (Bld) [#/Vol] 3.78 10*6/uL Low 4.2-5.4 [facility] Comment on above: Order Comment: 162 Performed By: #### L 100.0500 #### [facility] [address] [place], [address] RDW SD 53.5 fl High 35.1-43.9 [facility] Comment on above: Order Comment: 162 Performed By: #### L 100.0500 #### [facility] [address] [place], [address] WBC (Bld) [#/Vol] 7.2 10*3/uL Normal 4.4-11.0 [facility] Comment on above: Order Comment: 162 Performed By: #### L 100.0500 #### [facility] [address] [place], [address] CRPon 08-12-2025 C-REACTIVE PROT 3.90 mg/L High 0.0-3.0 [facility] Comment on above: Order Comment: DENG Mcelroy ADD CRP TO 08-11-25 BLOOD WORK Performed By: #### L 500.2500, L501.6710, L100.0100, L501.1400 #### [facility] [address] [place], [address] Basic Metabolic Profile (BMP )on 08-11-2025 BUN/CRE 22.6 RATIO High 10-20 [facility] Comment on above: Performed By: #### L 500.2500, [id number], L100.0100, L501.1400 #### [facility] [address] [place], [address] Calcium [Mass/Vol] 9.3 mg/dL Normal 7.6-11.0 [facility] Comment on above: Performed By: #### L 500.2500, [id number], L100.0100, L501.1400 #### [facility] [address] [place], [address] Chloride [Moles/Vol] 107 mmol/L Normal 98-108 [facility] Comment on above: Performed By: #### L 500.2500, [id number], L100.0100, L501.1400 #### [facility] [address] [place], [address] CO2 [Moles/Vol] 25.6 mmol/L Normal 21.0-32.0 [facility] Comment on above: Performed By: #### L 500.2500, [id number], L100.0100, L501.1400 #### [facility] [address] [place], [address] Creatinine [Mass/Vol] 0.99 mg/dL Normal 0.70-1.20 [facility] Comment on above: Performed By: #### L 500.2500, [id number], L100.0100, L501.1400 #### [facility] [address] [place], [address] GAP 10 Normal 5-15 [facility] Comment on above: Performed By: #### L 500.2500, [id number], L100.0100, L501.1400 #### [facility] [address] [place], [address] GFR/1.73 sq M.predicted among non-blacks MDRD (S/P/Bld) [Vol rate/Area] 56 mL/min/{1.73_m2} Low >60 [facility] Comment on above: Result Comment: mL/m in/1.73m2 CKD-EPI Creatinine Equation (2020) Performed By: #### L 500.2500, L501.6710, L100.0100, L501.1400 #### [facility] [address] [place], [address] Glucose [Mass/Vol] 71 mg/dL Normal 70-99 [facility] Comment on above: Performed By: #### L 500.2500, [id number], L100.0100, L501.1400 #### [facility] [address] [place], [address] Potassium [Moles/Vol] 4.2 mmol/L Normal 3.3-5.1 [facility] Comment on above: Performed By: #### L 500.2500, [id number], L100.0100, L501.1400 #### [facility] [address] [place], [address] Sodium [Moles/Vol] 143 mmol/L Normal 133-145 [facility] Comment on above: Performed By: #### L 500.2500, [id number], L100.0100, L501.1400 #### [facility] [address] [place], [address] Urea nitrogen [Mass/Vol] 22 mg/dL High 4-19 [facility] Comment on above: Performed By: #### L 500.2500, [id number], L100.0100, L501.1400 #### [facility] [address] [place], [address] CBC W/Diff, Automatedon 11-0 3-2024 Absolute Lymph 1.57 X10 3/uL Normal 0.83-4.51 [facility] Comment on above: Performed By: #### L 500.2500, [id number], L100.0100, L501.1400 #### [facility] [address] [place], [address] Absolute Neut 3.6 X10 3/uL Normal 2.0-7.7 [facility] Comment on above: Performed By: #### L 500.2500, [id number], L100.0100, L501.1400 #### [facility] [address] [facility] [place], [address] Basophils/100 WBC (Bld) 0.9 % Normal 0-1 [facility] Comment on above: Performed By: #### L 500.2500, [id number], L100.0100, L501.1400 #### [facility] [address] [facility], [address] Eosinophils/100 WBC (Bld) 1.0 % Normal 0-5 [facility] Comment on above: Performed By: #### L 500.2500, L501.6710, L100.0100, L501.1400 #### [facility] [address] [facility] [place], [address] Erythrocyte distribution width (RBC) [Ratio] 14.3 % Normal 11.6-14.6 [facility] Comment on above: Performed By: #### L 500.2500, L501.6710, L100.0100, L501.1400 #### [facility] [address] [place], [address] Hematocrit (Bld) [Volume fraction] 28.8 % Low 37-47 [facility] Comment on above: Performed By: #### L 500.2500, L501.6710, L100.0100, L501.1400 #### [facility] [address] [place], [address] Hemoglobin (Bld) [Mass/Vol] 8.9 g/dL Low 12.0-15.0 [facility] Comment on above: Performed By: #### L 500.2500, L501.6710, L100.0100, L501.1400 #### [facility] [address] [place], [address] IG% 0.300 Normal 0.0-0.9 [facility] Comment on above: Result Comment: IG% - Immature Granulocytes (promyelocytes, myelocytes and metamyelocytes) > 1% indicates that a LEFT SHIFT is Present. Performed By: #### L 500.2500, L501.6710, L100.0100, L501.1400 #### [facility] [address] [place], [address] Lymphocytes/100 WBC (Bld) 26.9 % Normal 19-41 [facility] Comment on above: Performed By: #### L 500.2500, L501.6710, L100.0100, L501.1400 #### [facility] [address] [place], [address] MCH (RBC) [Entitic mass] 30.9 pg Normal 27.0-32.0 [facility] [facility] Comment on above: Performed By: #### L 500.2500, L501.6710, L100.0100, L501.1400 #### [facility] [address] [place], [address] MCHC (RBC) [Mass/Vol] 30.9 g/dL Low 32-36 [facility] Comment on above: Performed By: #### L 500.2500, L501.6710, L100.0100, L501.1400 #### [facility] [address] [place], [address] MCV (RBC) [Entitic vol] 100.0 fL High 81-99 [facility] Comment on above: Performed By: #### L 500.2500, L501.6710, L100.0100, L501.1400 #### [facility] [address] [place], [address] Monocytes/100 WBC (Bld) 8.9 % Normal 0-10 [facility] Comment on above: Performed By: #### L 500.2500, L501.6710, L100.0100, L501.1400 #### [facility] [address] [place], [address] Neutrophils/100 WBC (Bld) 62.0 % Normal 47-70 [facility] Comment on above: Performed By: #### L 500.2500, L501.6710, L100.0100, L501.1400 #### [facility] [address] [place], [address] Nucleated RBC (Bld) [#/Vol] 0 10*3/uL Normal 0-5 [facility] Comment on above: Performed By: #### L 500.2500, L501.6710, L100.0100, L501.1400 #### [facility] [address] [place], [address] Platelet mean volume (Bld) [Entitic vol] 9.4 fL Normal 6.2-12.0 [facility] Comment on above: Performed By: #### L 500.2500, L501.6710, L100.0100, L501.1400 #### [facility] [address] [place], [address] Platelets (Bld) [#/Vol] 163 10*3/uL Normal 150-450 [facility] Comment on above: Performed By: #### L 500.2500, L501.6710, L100.0100, L501.1400 #### [facility] [address] [place], [address] RBC (Bld) [#/Vol] 2.88 10*6/uL Low 4.2-5.4 [facility] Comment on above: Performed By: #### L 500.2500, L501.6710, L100.0100, L501.1400 #### [facility] [address] [place], [address] RDW SD 51.6 fl High 35.1-43.9 [facility] Comment on above: Performed By: #### L 500.2500, L501.6710, L100.0100, L501.1400 #### [facility] [address] [place], [address] WBC (Bld) [#/Vol] 5.8 10*3/uL Normal 4.4-11.0 [facility] Comment on above: Performed By: #### L 500.2500, L501.6710, L100.0100, L501.1400 #### [facility] [address] [place], [address] Uric Acidon 08-11-2025 URIC 7.3 mg/dL High 2.6-6.0 [facility] Comment on above: Result Comment: The drugs N-Acetylcysteine and Metamizole may falsely depress this assay. Performed By: #### L 500.2500, L501.6710, L100.0100, L501.1400 #### [facility] [address] [place], [address] Basic Metabolic Profile (BMP )on 06-23-2025 BUN/CRE 14.3 RATIO Normal 10-20 [facility] Comment on above: Order Comment: 162 Performed By: #### L 500.2500 #### [facility] [address] [place], [address] Calcium [Mass/Vol] 9.1 mg/dL Normal 7.6-11.0 [facility] Comment on above: Order Comment: 162 Performed By: #### L 500.2500 #### [facility] [address] [place], [address] Chloride [Moles/Vol] 106 mmol/L Normal 98-108 [facility] Comment on above: Order Comment: 162 Performed By: #### L 500.2500 #### [facility] [address] [place], [address] CO2 [Moles/Vol] 26.1 mmol/L Normal 21.0-32.0 [facility] Comment on above: Order Comment: 162 Performed By: #### L 500.2500 #### [facility] [address] [place], [address] Creatinine [Mass/Vol] 0.95 mg/dL Normal 0.70-1.20 [facility] Comment on above: Order Comment: 162 Performed By: #### L 500.2500 #### [facility] [address] [place], [address] GAP 11 Normal 5-15 [facility] Comment on above: Order Comment: 162 Performed By: #### L 500.2500 #### [facility] [address] [place], [address] GFR/1.73 sq M.predicted among non-blacks MDRD (S/P/Bld) [Vol rate/Area] 59 mL/min/{1.73_m2} Low >60 [facility] Comment on above: Order Comment: 162 Result Comment: mL/m in/1.73m2 CKD-EPI Creatinine Equation (2020) Performed By: #### L 500.2500 #### [facility] [address] [place], [address] Glucose [Mass/Vol] 105 mg/dL High 70-99 [facility] Comment on above: Order Comment: 162 Performed By: #### L 500.2500 #### [facility] [address] [place], [address] Potassium [Moles/Vol] 4.2 mmol/L Normal 3.3-5.1 [facility] Comment on above: Order Comment: 162 Performed By: #### L 500.2500 #### [facility] [address] [place], [address] Sodium [Moles/Vol] 143 mmol/L Normal 133-145 [facility] Comment on above: Order Comment: 162 Performed By: #### L 500.2500 #### [facility] [address] [place], [place], [address] Urea nitrogen [Mass/Vol] 14 mg/dL Normal 4-19 [facility] Comment on above: Order Comment: 162 Performed By: #### L 500.2500 #### [facility] [address] [place], [address] .Auto Diffon 05-26-2025 Basophil, Absolute 0.0 10 3/mcL Normal 0.0-0.3 [facility] Comment on above: Performed By: #### A 1C, FT4, ANEU, GFR, LIPID, CBC, CMP, TSH, ADIFF #### [address] [address] Basophils/100 WBC (Bld) 0.9 % Normal 0.0-2.5 [facility] Comment on above: Performed By: #### A 1C, FT4, ANEU, GFR, LIPID, CBC, CMP, TSH, ADIFF #### [address] [place], [place] [address] Eosinophil, Absolute 0.1 10 3/mcL Normal 0.0-0.7 [facility] Comment on above: Performed By: #### A 1C, FT4, ANEU, GFR, LIPID, CBC, CMP, TSH, ADIFF #### [address] [address] Eosinophils/100 WBC (Bld) 2.8 % Normal 0.0-6.0 [facility] Comment on above: Performed By: #### A 1C, FT4, ANEU, GFR, LIPID, CBC, CMP, TSH, ADIFF #### [address] [address] Lymphocyte, Absolute 0.9 10 3/mcL Normal 0.9-4.3 [facility] Comment on above: Performed By: #### A 1C, FT4, ANEU, GFR, LIPID, CBC, CMP, TSH, ADIFF #### [address] [address] Lymphocytes/100 WBC (Bld) 18.4 % Low 20.0-40.0 [facility] Comment on above: Performed By: #### A 1C, FT4, ANEU, GFR, LIPID, CBC, CMP, TSH, ADIFF #### [address] [address] Monocyte, Absolute 0.4 10 3/mcL Normal 0.1-1.4 [facility] Comment on above: Performed By: #### A 1C, FT4, ANEU, GFR, LIPID, CBC, CMP, TSH, ADIFF #### [address] [address] Monocytes/100 WBC (Bld) 7.8 % Normal 2.0-13.0 [facility] Comment on above: Performed By: #### A 1C, FT4, ANEU, GFR, LIPID, CBC, CMP, TSH, ADIFF #### [address] [address] Neutrophils/100 WBC (Bld) 70.1 % Normal 50.0-75.0 [facility] Comment on above: Performed By: #### A 1C, FT4, ANEU, GFR, LIPID, CBC, CMP, TSH, ADIFF #### [address] [address] .GFRon 05-26-2025 Estimated Glomerular Filtration Rate 62 ml/min/1.73sqm Normal [facility] Comment on above: Result Comment: Stages of [...] GFR, LIPID, CBC, CMP, TSH, ADIFF #### [address] [address] .NEUABSon 05-26-2025 Neutrophil, Absolute 3.5 10 3/mcL Normal 2.3-8.1 [facility] Comment on above: Performed By: #### A 1C, FT4, ANEU, GFR, LIPID, CBC, CMP, TSH, ADIFF #### [address] [address] A1Con 05-26-2025 Glucose [Mass/Vol] 117 mg/dL Normal [facility] Comment on above: Result Comment: Eugenia mated Average Glucose calculated by equation ((28.7xA1C)-46.7) Estimated average glucose (eAG) is a calculated value from Hemoglobin A1C and is customer engagement representative of the average blood glucose level in the last 2-3 month period. Normal range: less than 114 mg/dL Performed By: #### A 1C, FT4, ANEU, GFR, LIPID, CBC, CMP, TSH, ADIFF #### [address] [address] HbA1c (Bld) [Mass fraction] 5.7 % Normal 4.3-6.4 [facility] Comment on above: Performed By: #### A 1C, FT4, ANEU, GFR, LIPID, CBC, CMP, TSH, ADIFF #### [address] [place], [place] [address] CBCon 05-26-2025 Erythrocyte distribution width (RBC) [Ratio] 19.4 % High 11.5-15.5 [facility] Comment on above: Performed By: #### A 1C, FT4, ANEU, GFR, LIPID, CBC, CMP, TSH, ADIFF #### [place] [address] Hematocrit (Bld) [Volume fraction] 31.5 % Low 34.0-46.0 [facility] Comment on above: Performed By: #### A 1C, FT4, ANEU, GFR, LIPID, CBC, CMP, TSH, ADIFF #### [place] [address] Hgb 10.3 G/dL Low 12.0-16.0 [facility] Comment on above: Performed By: #### A 1C, FT4, ANEU, GFR, LIPID, CBC, CMP, TSH, ADIFF #### [place] [address] MCH (RBC) [Entitic mass] 30.1 pg Normal 27.0-33.0 [facility] Comment on above: Performed By: #### A 1C, FT4, ANEU, GFR, LIPID, CBC, CMP, TSH, ADIFF #### [place] [address] MCHC 32.6 G/dL Normal 32.0-36.0 [facility] Comment on above: Performed By: #### A 1C, FT4, ANEU, GFR, LIPID, CBC, CMP, TSH, ADIFF #### [place] [address] MCV (RBC) [Entitic vol] 92.4 fL Normal 80.0-99.0 [facility] Comment on above: Performed By: #### A 1C, FT4, ANEU, GFR, LIPID, CBC, CMP, TSH, ADIFF #### [place] [address] Platelet 146 10 3/mcL Low 150-450 [facility] Comment on above: Performed By: #### A 1C, FT4, ANEU, GFR, LIPID, CBC, CMP, TSH, ADIFF #### [address] [address] Platelet mean volume (Bld) [Entitic vol] 8.0 fL Normal 6.6-10.5 [facility] Comment on above: Performed By: #### A 1C, FT4, ANEU, GFR, LIPID, CBC, CMP, TSH, ADIFF #### [address] [address] RBC 3.41 10 6/mcL Low 4.10-5.30 [facility] Comment on above: Performed By: #### A 1C, FT4, ANEU, GFR, LIPID, CBC, CMP, TSH, ADIFF #### [address] [address] WBC 4.9 10 3/mcL Normal 4.5-10.8 [facility] Comment on above: Performed By: #### A 1C, FT4, ANEU, GFR, LIPID, CBC, CMP, TSH, ADIFF #### [address] [address] CMPon 05-26-2025 Albumin Level 3.5 G/dL Normal 3.4-4.8 [facility] Comment on above: Performed By: #### A 1C, FT4, ANEU, GFR, LIPID, CBC, CMP, TSH, ADIFF #### [address] [address] Albumin/Globulin [Mass ratio] 1.1 {ratio} Normal 1.1-2.5 [facility] Comment on above: Performed By: #### A 1C, FT4, ANEU, GFR, LIPID, CBC, CMP, TSH, ADIFF #### [address] [address] ALP [Catalytic activity/Vol] 53 U/L Normal 40-135 [facility] Comment on above: Performed By: #### A 1C, FT4, ANEU, GFR, LIPID, CBC, CMP, TSH, ADIFF #### [address] [address] ALT [Catalytic activity/Vol] 10 U/L Low 14-59 [facility] Comment on above: Performed By: #### A 1C, FT4, ANEU, GFR, LIPID, CBC, CMP, TSH, ADIFF #### [address] [address] AST [Catalytic activity/Vol] 17 U/L Normal 10-40 [facility] Comment on above: Performed By: #### A 1C, FT4, ANEU, GFR, LIPID, CBC, CMP, TSH, ADIFF #### [address] [address] Bili Total 0.5 mg/dL Normal 0.2-1.0 [facility] Comment on above: Result Comment: Use of this assay is not recommended for patients undergoing treatment with eltrombopag due to the potential for falsely elevated results. Performed By: #### A 1C, FT4, ANEU, GFR, LIPID, CBC, CMP, TSH, ADIFF #### [place] [address] BUN/Creatinine Ratio 18 ratio Normal 7-27 [facility] Comment on above: Performed By: #### A 1C, FT4, ANEU, GFR, LIPID, CBC, CMP, TSH, ADIFF #### [address] [address] Calcium [Mass/Vol] 9.1 mg/dL Normal 8.4-10.2 [facility] Comment on above: Performed By: #### A 1C, FT4, ANEU, GFR, LIPID, CBC, CMP, TSH, ADIFF #### [address] [address] Chloride [Moles/Vol] 103 mmol/L Normal 98-107 [facility] Comment on above: Performed By: #### A 1C, FT4, ANEU, GFR, LIPID, CBC, CMP, TSH, ADIFF #### [address] [address] CO2 [Moles/Vol] 30 mmol/L Normal 23-31 [facility] Comment on above: Performed By: #### A 1C, FT4, ANEU, GFR, LIPID, CBC, CMP, TSH, ADIFF #### [address] [address] Creatinine [Mass/Vol] 0.92 mg/dL Normal 0.51-0.95 [facility] Comment on above: Performed By: #### A 1C, FT4, ANEU, GFR, LIPID, CBC, CMP, TSH, ADIFF #### [address] [address] Electrolyte Balance 7.0 mEq/L Normal 4.0-15.0 [facility] Comment on above: Performed By: #### A 1C, FT4, ANEU, GFR, LIPID, CBC, CMP, TSH, ADIFF #### [address] [address] Globulin 3.3 G/dL Normal 2.7-4.4 [facility] Comment on above: Performed By: #### A 1C, FT4, ANEU, GFR, LIPID, CBC, CMP, TSH, ADIFF #### [address] [address] Glucose [Mass/Vol] 110 mg/dL Normal 83-110 [facility] Comment on above: Performed By: #### A 1C, FT4, ANEU, GFR, LIPID, CBC, CMP, TSH, ADIFF #### [address] [address] Potassium [Moles/Vol] 3.4 mmol/L Low 3.5-5.1 [facility] Comment on above: Performed By: #### A 1C, FT4, ANEU, GFR, LIPID, CBC, CMP, TSH, ADIFF #### [address] [address] Sodium [Moles/Vol] 140 mmol/L Normal 136-145 [facility] Comment on above: Performed By: #### A 1C, FT4, ANEU, GFR, LIPID, CBC, CMP, TSH, ADIFF #### [address] [address] Total Protein 6.8 G/dL Normal 6.4-8.2 [facility] Comment on above: Performed By: #### A 1C, FT4, ANEU, GFR, LIPID, CBC, CMP, TSH, ADIFF #### [address] [place], [place] [address] Urea nitrogen [Mass/Vol] 17 mg/dL Normal 04-25 [facility] Comment on above: Performed By: #### A 1C, FT4, ANEU, GFR, LIPID, CBC, CMP, TSH, ADIFF #### [address] [place], [place] [address] FT4on 05-26-2025 Free T4 [Mass/Vol] 0.82 ng/dL Normal 0.76-1.46 [facility] Comment on above: Performed By: #### A 1C, FT4, ANEU, GFR, LIPID, CBC, CMP, TSH, ADIFF #### [address] [address] LABORATORYOrdered By: SYSTEM SYSTEM on 05-26-2025 Albumin [...] calculated value from Hemoglobin A1C and is customer engagement representative of the average blood glucose level [...] 05-26-2025 Cholesterol [Mass/Vol] 104 mg/dL Normal 0-200 [facility] Comment on above: Result Comment: Chol esterol Reference Interval: Less than 200 Desirable 200-239 Borderline high risk 240 and above High risk Performed By: #### A 1C, FT4, ANEU, GFR, LIPID, CBC, CMP, TSH, ADIFF #### [address] [address] Cholesterol in HDL [Mass/Vol] 41 mg/dL Normal 40-60 [facility] Comment on above: Performed By: #### A 1C, FT4, ANEU, GFR, LIPID, CBC, CMP, TSH, ADIFF #### [address] [place], [place] [address] Cholesterol in LDL [Mass/Vol] 45 mg/dL Normal 0-130 [facility] Comment on above: Performed By: #### A 1C, FT4, ANEU, GFR, LIPID, CBC, CMP, TSH, ADIFF #### [address] [place], [place] [address] Triglyceride [Mass/Vol] 92 mg/dL Normal 0-150 [facility] Comment on above: Result Comment: Trig lyceride Reference Interval: Less than 150 Normal 150-199 Borderline high risk 200-499 High risk 500 or higher Very high risk Performed By: #### A 1C, FT4, ANEU, GFR, LIPID, CBC, CMP, TSH, ADIFF #### [address] [address] TSHon 05-26-2025 TSH Qn 2.31 m[IU]/L Normal 0.36-3.74 [facility] Comment on above: Performed By: #### A 1C, FT4, ANEU, GFR, LIPID, CBC, CMP, TSH, ADIFF #### [address] [address] .Auto Diffon 05-06-2025 Basophil, Absolute 0.1 10 3/mcL Normal 0.0-0.3 [facility] Comment on above: Performed By: #### C BC, ADIFF, ANEU, MORPH, CMP, GFR ####[address] [address] Basophils/100 WBC (Bld) 0.9 % Normal 0.0-2.5 [facility] Comment on above: Performed By: #### C BC, ADIFF, ANEU, MORPH, CMP, GFR ####[place] [address] Eosinophil, Absolute 0.1 10 3/mcL Normal 0.0-0.7 [facility] Comment on above: Performed By: #### C BC, ADIFF, ANEU, MORPH, CMP, GFR ####[address] [address] Eosinophils/100 WBC (Bld) 2.3 % Normal 0.0-6.0 [facility] Comment on above: Performed By: #### C BC, ADIFF, ANEU, MORPH, CMP, GFR ####[address] [address] Lymphocyte, Absolute 1.4 10 3/mcL Normal 0.9-4.3 [facility] Comment on above: Performed By: #### C BC, ADIFF, ANEU, MORPH, CMP, GFR ####[address] [place] [address] Lymphocytes/100 WBC (Bld) 23.1 % Normal 20.0-40.0 [facility] Comment on above: Performed By: #### C BC, ADIFF, ANEU, MORPH, CMP, GFR ####[address] [place], [place] [address] Monocyte, Absolute 0.5 10 3/mcL Normal 0.1-1.4 [facility] Comment on above: Performed By: #### C BC, ADIFF, ANEU, MORPH, CMP, GFR ####[address] [place], [place] [address] Monocytes/100 WBC (Bld) 7.4 % Normal 2.0-13.0 [facility] Comment on above: Performed By: #### C BC, ADIFF, ANEU, MORPH, CMP, GFR ####[address] [place], [place] [address] Neutrophils/100 WBC (Bld) 66.3 % Normal 50.0-75.0 [facility] Comment on above: Performed By: #### C BC, ADIFF, ANEU, MORPH, CMP, GFR ####[address] [place], [place] [address] .GFRon 05-06-2025 Estimated Glomerular Filtration Rate 61 ml/min/1.73sqm Normal [facility] Comment on above: Result Comment: Stages of [...] ADIFF, ANEU, MORPH, CMP, GFR ####[address] [place], [place] [address] .Morphon 05-06-2025 Platelet Estimate Normal Normal [facility] Comment on above: Performed By: #### C BC, ADIFF, ANEU, MORPH, CMP, GFR ####[address] [place] [id number] .NEUABSon 05-06-2025 Neutrophil, Absolute 4.1 10 3/mcL Normal 2.3-8.1 [facility] Comment on above: Performed By: #### C BC, ADIFF, ANEU, MORPH, CMP, GFR ####[address] [place] [address] CBCon 05-06-2025 Erythrocyte distribution width (RBC) [Ratio] 20.3 % High 11.5-15.5 [facility] Comment on above: Performed By: #### C BC, ADIFF, ANEU, MORPH, CMP, GFR ####[id number] [place] [address] Hematocrit (Bld) [Volume fraction] 31.3 % Low 34.0-46.0 [facility] Comment on above: Performed By: #### C BC, ADIFF, ANEU, MORPH, CMP, GFR ####[address] [address] Hgb 10.2 G/dL Low 12.0-16.0 [facility] Comment on above: Performed By: #### C BC, ADIFF, ANEU, MORPH, CMP, GFR ####[address] [address] MCH (RBC) [Entitic mass] 29.3 pg Normal 27.0-33.0 [facility] Comment on above: Performed By: #### C BC, ADIFF, ANEU, MORPH, CMP, GFR ####[address] [place] [address] MCHC 32.6 G/dL Normal 32.0-36.0 [facility] Comment on above: Performed By: #### C BC, ADIFF, ANEU, MORPH, CMP, GFR ####[address] [place] [address] MCV (RBC) [Entitic vol] 90.1 fL Normal 80.0-99.0 [facility] Comment on above: Performed By: #### C BC, ADIFF, ANEU, MORPH, CMP, GFR ####[id number] [place], [place] [address] Platelet 194 10 3/mcL Normal 150-450 [facility] Comment on above: Performed By: #### C BC, ADIFF, ANEU, MORPH, CMP, GFR ####[address] [place], [place] [address] Platelet mean volume (Bld) [Entitic vol] 7.3 fL Normal 6.6-10.5 [facility] Comment on above: Performed By: #### C BC, ADIFF, ANEU, MORPH, CMP, GFR ####[address] [place], [place] [address] RBC 3.47 10 6/mcL Low 4.10-5.30 [facility] Comment on above: Performed By: #### C BC, ADIFF, ANEU, MORPH, CMP, GFR ####[address] [place], [place] [address] WBC 6.2 10 3/mcL Normal 4.5-10.8 [facility] Comment on above: Performed By: #### C BC, ADIFF, ANEU, MORPH, CMP, GFR ####[address] [place], [place] [address] CMPon 05-06-2025 Albumin Level 3.6 G/dL Normal 3.4-4.8 [facility] Comment on above: Performed By: #### C BC, ADIFF, ANEU, MORPH, CMP, GFR ####[address] [place], [place] [address] Albumin/Globulin [Mass ratio] 1.1 {ratio} Normal 1.1-2.5 [facility] Comment on above: Performed By: #### C BC, ADIFF, ANEU, MORPH, CMP, GFR ####[address] [place], [place] [address] ALP [Catalytic activity/Vol] 61 U/L Normal 40-135 [facility] Comment on above: Performed By: #### C BC, ADIFF, ANEU, MORPH, CMP, GFR ####[place] [address] [place], [place] [address] ALT [Catalytic activity/Vol] 16 U/L Normal 14-59 [facility] Comment on above: Performed By: #### C BC, ADIFF, ANEU, MORPH, CMP, GFR ####[address] [place], [place] [address] AST [Catalytic activity/Vol] 19 U/L Normal 10-40 [facility] Comment on above: Performed By: #### C BC, ADIFF, ANEU, MORPH, CMP, GFR ####[place] [id number] [place] [id number] Bili Total 0.4 mg/dL Normal 0.2-1.0 [facility] Comment on above: Result Comment: Use of this assay is not recommended for patients undergoing treatment with eltrombopag due to the potential for falsely elevated results. Performed By: #### C BC, ADIFF, ANEU, MORPH, CMP, GFR ####[place] [id number] [place] [id number] BUN/Creatinine Ratio 15 ratio Normal 7-27 [facility] Comment on above: Performed By: #### C BC, ADIFF, ANEU, MORPH, CMP, GFR ####[place] [address] [place], [place] [address] Calcium [Mass/Vol] 9.4 mg/dL Normal 8.4-10.2 [facility] Comment on above: Performed By: #### C BC, ADIFF, ANEU, MORPH, CMP, GFR ####[place] [address] [place], [place] [address] Chloride [Moles/Vol] 103 mmol/L Normal 98-107 [facility] Comment on above: Performed By: #### C BC, ADIFF, ANEU, MORPH, CMP, GFR ####[place] [address] [place], [place] [address] CO2 [Moles/Vol] 28 mmol/L Normal 23-31 [facility] Comment on above: Performed By: #### C BC, ADIFF, ANEU, MORPH, CMP, GFR ####[place] [address] [place], [place] [address] Creatinine [Mass/Vol] 0.93 mg/dL Normal 0.51-0.95 [facility] Comment on above: Performed By: #### C BC, ADIFF, ANEU, MORPH, CMP, GFR ####[address] [place] [id number] Electrolyte Balance 11.0 mEq/L Normal 4.0-15.0 [facility] Comment on above: Performed By: #### C BC, ADIFF, ANEU, MORPH, CMP, GFR ####[address] [place], [place] [address] Globulin 3.4 G/dL Normal 2.7-4.4 [facility] Comment on above: Performed By: #### C BC, ADIFF, ANEU, MORPH, CMP, GFR ####[address] [address] Glucose [Mass/Vol] 159 mg/dL High 83-110 [facility] Comment on above: Performed By: #### C BC, ADIFF, ANEU, MORPH, CMP, GFR ####[address] [address] Potassium [Moles/Vol] 3.5 mmol/L Normal 3.5-5.1 [facility] Comment on above: Performed By: #### C BC, ADIFF, ANEU, MORPH, CMP, GFR ####[address] [address] Sodium [Moles/Vol] 142 mmol/L Normal 136-145 [facility] Comment on above: Performed By: #### C BC, ADIFF, ANEU, MORPH, CMP, GFR ####[address] [address] Total Protein 7.0 G/dL Normal 6.4-8.2 [facility] Comment on above: Performed By: #### C BC, ADIFF, ANEU, MORPH, CMP, GFR ####[facility] [place], [place] [address] Urea nitrogen [Mass/Vol] 14 mg/dL Normal 7-18 [facility] Comment on above: Performed By: #### C BC, ADIFF, ANEU, MORPH, CMP, GFR ####[facility] [place], [place] [address] LABORATORYOrdered By: SYSTEM SYSTEM on 05-06-2025 Albumin [...] 116 mg/dL High 82 - 115 mg/dL [facility] HbA1c (Bld) [Mass fraction] 5.7 % [facility] Performed By Dhruv Cook PharmD [facility] Performing Location [facility] GGTon 04-15-2025 Gamma GT 94 U/L High 5-55 [facility] Comment on above: Performed By: #### A 1C, FT4, ANEU, GFR, LIPID, CBC, CMP, TSH, ADIFF #### [address] [address] ALT/SGPTon 04-14-2025 ALT [Catalytic activity/Vol] 39 U/L Normal 14-59 [facility] Comment on above: Performed By: #### A 1C, FT4, ANEU, GFR, LIPID, CBC, CMP, TSH, ADIFF #### [address] [address] APon 04-14-2025 ALP [Catalytic activity/Vol] 88 U/L Normal 40-135 [facility] Comment on above: Performed By: #### A 1C, FT4, ANEU, GFR, LIPID, CBC, CMP, TSH, ADIFF #### [address] [address] FEon 04-14-2025 Iron [Mass/Vol] 28 ug/dL Low 50-170 [facility] Comment on above: Performed By: #### A 1C, FT4, ANEU, GFR, LIPID, CBC, CMP, TSH, ADIFF #### [address] [address] Dipti 04-14-2025 Ferritin [Mass/Vol] 40.0 ng/mL Normal 8.0-252.0 [facility] Comment on above: Performed By: #### A 1C, FT4, ANEU, GFR, LIPID, CBC, CMP, TSH, ADIFF #### [address] [address] HHon 04-14-2025 Hematocrit (Bld) [Volume fraction] 27.4 % Low 34.0-46.0 [facility] Comment on above: Performed By: #### A 1C, FT4, ANEU, GFR, LIPID, CBC, CMP, TSH, ADIFF #### [address] [address] Hgb 8.8 G/dL Low 12.0-16.0 [facility] Comment on above: Performed By: #### A 1C, FT4, ANEU, GFR, LIPID, CBC, CMP, TSH, ADIFF #### [address] [address] LABORATORYOrdered By: SYSTEM SYSTEM on 04-14-2025 ALP [...] Basophil, Absolute 0.0 10 3/mcL Normal 0.0-0.3 [facility] Comment on above: Performed By: #### A 1C, FT4, ANEU, GFR, LIPID, CBC, CMP, TSH, ADIFF #### [address] [address] Basophils/100 WBC (Bld) 0.6 % Normal 0.0-2.5 [facility] Comment on above: Performed By: #### A 1C, FT4, ANEU, GFR, LIPID, CBC, CMP, TSH, ADIFF #### [address] [address] Eosinophil, Absolute 0.1 10 3/mcL Normal 0.0-0.7 [facility] Comment on above: Performed By: #### A 1C, FT4, ANEU, GFR, LIPID, CBC, CMP, TSH, ADIFF #### [address] [address] Eosinophils/100 WBC (Bld) 1.6 % Normal 0.0-6.0 [facility] Comment on above: Performed By: #### A 1C, FT4, ANEU, GFR, LIPID, CBC, CMP, TSH, ADIFF #### [address] [address] Lymphocyte, Absolute 1.5 10 3/mcL Normal 0.9-4.3 [facility] Comment on above: Performed By: #### A 1C, FT4, ANEU, GFR, LIPID, CBC, CMP, TSH, ADIFF #### [address] [address] Lymphocytes/100 WBC (Bld) 20.6 % Normal 20.0-40.0 [facility] Comment on above: Performed By: #### A 1C, FT4, ANEU, GFR, LIPID, CBC, CMP, TSH, ADIFF #### [address] [address] Monocyte, Absolute 0.5 10 3/mcL Normal 0.1-1.4 [facility] Comment on above: Performed By: #### A 1C, FT4, ANEU, GFR, LIPID, CBC, CMP, TSH, ADIFF #### [address] [address] Monocytes/100 WBC (Bld) 6.8 % Normal 2.0-13.0 [facility] Comment on above: Performed By: #### A 1C, FT4, ANEU, GFR, LIPID, CBC, CMP, TSH, ADIFF #### [address] [address] Neutrophils/100 WBC (Bld) 70.4 % Normal 50.0-75.0 [facility] Comment on above: Performed By: #### A 1C, FT4, ANEU, GFR, LIPID, CBC, CMP, TSH, ADIFF #### [address] [address] .NEUABSon 03-28-2025 Neutrophil, Absolute 5.0 10 3/mcL Normal 2.3-8.1 [facility] Comment on above: Performed By: #### A 1C, FT4, ANEU, GFR, LIPID, CBC, CMP, TSH, ADIFF #### [address] [address] CBCon 03-28-2025 Erythrocyte distribution width (RBC) [Ratio] 16.0 % High 11.5-15.5 [facility] Comment on above: Performed By: #### A 1C, FT4, ANEU, GFR, LIPID, CBC, CMP, TSH, ADIFF #### [address] [address] Hematocrit (Bld) [Volume fraction] 28.4 % Low 34.0-46.0 [facility] Comment on above: Performed By: #### A 1C, FT4, ANEU, GFR, LIPID, CBC, CMP, TSH, ADIFF #### [address] [address] Hgb 9.0 G/dL Low 12.0-16.0 [facility] Comment on above: Performed By: #### A 1C, FT4, ANEU, GFR, LIPID, CBC, CMP, TSH, ADIFF #### [address] [address] MCH (RBC) [Entitic mass] 27.6 pg Normal 27.0-33.0 [facility] Comment on above: Performed By: #### A 1C, FT4, ANEU, GFR, LIPID, CBC, CMP, TSH, ADIFF #### [address] [address] MCHC 31.8 G/dL Low 32.0-36.0 [facility] Comment on above: Performed By: #### A 1C, FT4, ANEU, GFR, LIPID, CBC, CMP, TSH, ADIFF #### [address] [address] MCV (RBC) [Entitic vol] 86.9 fL Normal 80.0-99.0 [facility] Comment on above: Performed By: #### A 1C, FT4, ANEU, GFR, LIPID, CBC, CMP, TSH, ADIFF #### [address] [address] Platelet 286 10 3/mcL Normal 150-450 [facility] Comment on above: Performed By: #### A 1C, FT4, ANEU, GFR, LIPID, CBC, CMP, TSH, ADIFF #### [place] [address] Platelet mean volume (Bld) [Entitic vol] 7.5 fL Normal 6.6-10.5 [facility] Comment on above: Performed By: #### A 1C, FT4, ANEU, GFR, LIPID, CBC, CMP, TSH, ADIFF #### [place] [address] RBC 3.27 10 6/mcL Low 4.10-5.30 [facility] Comment on above: Performed By: #### A 1C, FT4, ANEU, GFR, LIPID, CBC, CMP, TSH, ADIFF #### [place] [address] WBC 7.2 10 3/mcL Normal 4.5-10.8 [facility] Comment on above: Performed By: #### A 1C, FT4, ANEU, GFR, LIPID, CBC, CMP, TSH, ADIFF #### [place] [address] FEon 03-28-2025 Iron [Mass/Vol] 30 ug/dL Low 50-170 [facility] Comment on above: Performed By: #### A 1C, FT4, ANEU, GFR, LIPID, CBC, CMP, TSH, ADIFF #### [place] [address] Dipti 03-28-2025 Ferritin [Mass/Vol] 50.0 ng/mL Normal 8.0-252.0 [facility] Comment on above: Performed By: #### A 1C, FT4, ANEU, GFR, LIPID, CBC, CMP, TSH, ADIFF #### [place] [address] LABORATORYOrdered By: SYSTEM SYSTEM on 03-28-2025 Basophils [...] Immature Retic Fraction 0.40 IRF Normal 0.20-0.46 [facility] Comment on above: Performed By: #### A 1C, FT4, ANEU, GFR, LIPID, CBC, CMP, TSH, ADIFF #### [address] [address] Reticulocytes, Auto 2.0 % Normal 0.2-2.3 [facility] Comment on above: Performed By: #### A 1C, FT4, ANEU, GFR, LIPID, CBC, CMP, TSH, ADIFF #### [address] [address] .GFRon 03-20-2025 Estimated Glomerular Filtration Rate 57 ml/min/1.73sqm Normal [facility] Comment on above: Result Comment: Stages [...] By: #### G FR, BMP #### [facility] [address] [place], [place] [address] BMPon 03-20-2025 BUN/Creatinine Ratio 17 ratio Normal 7-27 [facility] Comment on above: Performed By: #### G FR, BMP #### [facility] [address] [facility] [place] [address] Calcium [Mass/Vol] 9.1 mg/dL Normal 8.4-10.2 [facility] Comment on above: Performed By: #### G FR, BMP #### [facility] [address] [facility] [place] [address] Chloride [Moles/Vol] 103 mmol/L Normal 98-107 [facility] Comment on above: Performed By: #### G FR, BMP #### [facility] [address] [facility] [place] [address] CO2 [Moles/Vol] 28 mmol/L Normal 23-31 [facility] Comment on above: Performed By: #### G FR, BMP #### [facility] [address] [facility] [place] [address] Creatinine [Mass/Vol] 0.98 mg/dL High 0.51-0.95 [facility] Comment on above: Performed By: #### G FR, BMP #### [facility] [address] [facility] [place] [address] Electrolyte Balance 10.0 mEq/L Normal 4.0-15.0 [facility] Comment on above: Performed By: #### G FR, BMP #### [facility] [address] [facility] [place] [address] Glucose [Mass/Vol] 175 mg/dL High 83-110 [facility] Comment on above: Performed By: #### G FR, BMP #### [facility] [address] [facility] [place] [address] Potassium [Moles/Vol] 4.1 mmol/L Normal 3.5-5.1 [facility] Comment on above: Performed By: #### G FR, BMP #### [facility] [address] [facility] [place] [address] Sodium [Moles/Vol] 141 mmol/L Normal 136-145 [facility] Comment on above: Performed By: #### G FR, BMP #### [facility] [address] [place], [place] [address] Urea nitrogen [Mass/Vol] 17 mg/dL Normal 7-18 [facility] Comment on above: Performed By: #### G FR, BMP #### [facility] [address] [place], [place] [address] .Auto Diffon 03-06-2025 Basophil, Absolute 0.0 10 3/mcL Normal 0.0-0.3 [facility] Comment on above: Performed By: #### A 1C, FT4, ANEU, GFR, LIPID, CBC, CMP, TSH, ADIFF #### [address] [address] Basophils/100 WBC (Bld) 0.9 % Normal 0.0-2.5 [facility] Comment on above: Performed By: #### A 1C, FT4, ANEU, GFR, LIPID, CBC, CMP, TSH, ADIFF #### [address] [address] Eosinophil, Absolute 0.2 10 3/mcL Normal 0.0-0.7 [facility] Comment on above: Performed By: #### A 1C, FT4, ANEU, GFR, LIPID, CBC, CMP, TSH, ADIFF #### [address] [address] Eosinophils/100 WBC (Bld) 3.3 % Normal 0.0-6.0 [facility] Comment on above: Performed By: #### A 1C, FT4, ANEU, GFR, LIPID, CBC, CMP, TSH, ADIFF #### [address] [address] Lymphocyte, Absolute 0.8 10 3/mcL Low 0.9-4.3 [facility] Comment on above: Performed By: #### A 1C, FT4, ANEU, GFR, LIPID, CBC, CMP, TSH, ADIFF #### [address] [address] Lymphocytes/100 WBC (Bld) 15.5 % Low 20.0-40.0 [facility] Comment on above: Performed By: #### A 1C, FT4, ANEU, GFR, LIPID, CBC, CMP, TSH, ADIFF #### [place] [address] [place], [place] [address] Monocyte, Absolute 0.5 10 3/mcL Normal 0.1-1.4 [facility] Comment on above: Performed By: #### A 1C, FT4, ANEU, GFR, LIPID, CBC, CMP, TSH, ADIFF #### [address] [address] Monocytes/100 WBC (Bld) 9.3 % Normal 2.0-13.0 [facility] Comment on above: Performed By: #### A 1C, FT4, ANEU, GFR, LIPID, CBC, CMP, TSH, ADIFF #### [place] [address] [place], [place] [address] Neutrophils/100 WBC (Bld) 71.0 % Normal 50.0-75.0 [facility] Comment on above: Performed By: #### A 1C, FT4, ANEU, GFR, LIPID, CBC, CMP, TSH, ADIFF #### [address] [address] .GFRon 03-06-2025 Estimated Glomerular Filtration Rate 35 ml/min/1.73sqm Normal [facility] Comment on above: Result Comment: Stages of [...] LIPID, CBC, CMP, TSH, ADIFF #### [place] [address] .NEUABSon 03-06-2025 Neutrophil, Absolute 3.8 10 3/mcL Normal 2.3-8.1 [facility] Comment on above: Performed By: #### A 1C, FT4, ANEU, GFR, LIPID, CBC, CMP, TSH, ADIFF #### [place] [address] CBCon 03-06-2025 Erythrocyte distribution width (RBC) [Ratio] 16.1 % High 11.5-15.5 [facility] Comment on above: Performed By: #### A 1C, FT4, ANEU, GFR, LIPID, CBC, CMP, TSH, ADIFF #### [place] [address] Hematocrit (Bld) [Volume fraction] 29.5 % Low 34.0-46.0 [facility] Comment on above: Performed By: #### A 1C, FT4, ANEU, GFR, LIPID, CBC, CMP, TSH, ADIFF #### [place] [address] Hgb 9.5 G/dL Low 12.0-16.0 [facility] Comment on above: Performed By: #### A 1C, FT4, ANEU, GFR, LIPID, CBC, CMP, TSH, ADIFF #### [place] [id number] MCH (RBC) [Entitic mass] 28.4 pg Normal 27.0-33.0 [facility] Comment on above: Performed By: #### A 1C, FT4, ANEU, GFR, LIPID, CBC, CMP, TSH, ADIFF #### [place] [address] MCHC 32.3 G/dL Normal 32.0-36.0 [facility] Comment on above: Performed By: #### A 1C, FT4, ANEU, GFR, LIPID, CBC, CMP, TSH, ADIFF #### [place] [address] MCV (RBC) [Entitic vol] 87.9 fL Normal 80.0-99.0 [facility] Comment on above: Performed By: #### A 1C, FT4, ANEU, GFR, LIPID, CBC, CMP, TSH, ADIFF #### [address] [address] Platelet 198 10 3/mcL Normal 150-450 [facility] Comment on above: Performed By: #### A 1C, FT4, ANEU, GFR, LIPID, CBC, CMP, TSH, ADIFF #### [address] [address] Platelet mean volume (Bld) [Entitic vol] 7.1 fL Normal 6.6-10.5 [facility] Comment on above: Performed By: #### A 1C, FT4, ANEU, GFR, LIPID, CBC, CMP, TSH, ADIFF #### [address] [address] RBC 3.36 10 6/mcL Low 4.10-5.30 [facility] Comment on above: Performed By: #### A 1C, FT4, ANEU, GFR, LIPID, CBC, CMP, TSH, ADIFF #### [address] [address] WBC 5.3 10 3/mcL Normal 4.5-10.8 [facility] Comment on above: Performed By: #### A 1C, FT4, ANEU, GFR, LIPID, CBC, CMP, TSH, ADIFF #### [address] [address] CMPon 03-06-2025 Albumin Level 3.6 G/dL Normal 3.4-4.8 [facility] Comment on above: Performed By: #### A 1C, FT4, ANEU, GFR, LIPID, CBC, CMP, TSH, ADIFF #### [address] [address] Albumin/Globulin [Mass ratio] 1.0 {ratio} Low 1.1-2.5 [facility] Comment on above: Performed By: #### A 1C, FT4, ANEU, GFR, LIPID, CBC, CMP, TSH, ADIFF #### [address] [address] ALP [Catalytic activity/Vol] 77 U/L Normal 40-135 [facility] Comment on above: Performed By: #### A 1C, FT4, ANEU, GFR, LIPID, CBC, CMP, TSH, ADIFF #### [address] [address] ALT [Catalytic activity/Vol] 18 U/L Normal 14-59 [facility] Comment on above: Performed By: #### A 1C, FT4, ANEU, GFR, LIPID, CBC, CMP, TSH, ADIFF #### [address] [address] AST [Catalytic activity/Vol] 19 U/L Normal 10-40 [facility] Comment on above: Performed By: #### A 1C, FT4, ANEU, GFR, LIPID, CBC, CMP, TSH, ADIFF #### [address] [address] Bili Total 0.2 mg/dL Normal 0.2-1.0 [facility] Comment on above: Result Comment: Use of this assay is not recommended for patients undergoing treatment with eltrombopag due to the potential for falsely elevated results. Performed By: #### A 1C, FT4, ANEU, GFR, LIPID, CBC, CMP, TSH, ADIFF #### [address] [address] BUN/Creatinine Ratio 16 ratio Normal 7-27 [facility] Comment on above: Performed By: #### A 1C, FT4, ANEU, GFR, LIPID, CBC, CMP, TSH, ADIFF #### [address] [address] Calcium [Mass/Vol] 9.1 mg/dL Normal 8.4-10.2 [facility] Comment on above: Performed By: #### A 1C, FT4, ANEU, GFR, LIPID, CBC, CMP, TSH, ADIFF #### [address] [address] Chloride [Moles/Vol] 102 mmol/L Normal 98-107 [facility] Comment on above: Performed By: #### A 1C, FT4, ANEU, GFR, LIPID, CBC, CMP, TSH, ADIFF #### [place] [address] CO2 [Moles/Vol] 24 mmol/L Normal 23-31 [facility] Comment on above: Performed By: #### A 1C, FT4, ANEU, GFR, LIPID, CBC, CMP, TSH, ADIFF #### [address] [address] Creatinine [Mass/Vol] 1.47 mg/dL High 0.51-0.95 [facility] Comment on above: Performed By: #### A 1C, FT4, ANEU, GFR, LIPID, CBC, CMP, TSH, ADIFF #### [place] [address] Electrolyte Balance 10.0 mEq/L Normal 4.0-15.0 [facility] Comment on above: Performed By: #### A 1C, FT4, ANEU, GFR, LIPID, CBC, CMP, TSH, ADIFF #### [place] [address] Globulin 3.7 G/dL Normal 2.7-4.4 [facility] Comment on above: Performed By: #### A 1C, FT4, ANEU, GFR, LIPID, CBC, CMP, TSH, ADIFF #### [place] [address] Glucose [Mass/Vol] 189 mg/dL High 83-110 [facility] Comment on above: Performed By: #### A 1C, FT4, ANEU, GFR, LIPID, CBC, CMP, TSH, ADIFF #### [place] [address] Potassium [Moles/Vol] 5.0 mmol/L Normal 3.5-5.1 [facility] Comment on above: Performed By: #### A 1C, FT4, ANEU, GFR, LIPID, CBC, CMP, TSH, ADIFF #### [address] [address] Sodium [Moles/Vol] 136 mmol/L Normal 136-145 [facility] Comment on above: Performed By: #### A 1C, FT4, ANEU, GFR, LIPID, CBC, CMP, TSH, ADIFF #### [place] [address] Total Protein 7.3 G/dL Normal 6.4-8.2 [facility] Comment on above: Performed By: #### A 1C, FT4, ANEU, GFR, LIPID, CBC, CMP, TSH, ADIFF #### [place] [address] Urea nitrogen [Mass/Vol] 23 mg/dL High 7-18 [facility] Comment on above: Performed By: #### A 1C, FT4, ANEU, GFR, LIPID, CBC, CMP, TSH, ADIFF #### [place] [address] FEon 03-06-2025 Iron [Mass/Vol] 35 ug/dL Low 50-170 [facility] Comment on above: Performed By: #### A 1C, FT4, ANEU, GFR, LIPID, CBC, CMP, TSH, ADIFF #### [address] [address] Dipti 03-06-2025 Ferritin [Mass/Vol] 28.0 ng/mL Normal 8.0-252.0 [facility] Comment on above: Performed By: #### A 1C, FT4, ANEU, GFR, LIPID, CBC, CMP, TSH, ADIFF #### [place] [address] LABORATORYOrdered By: SYSTEM SYSTEM on 03-06-2025 Albumin [...] Immature Retic Fraction 0.38 IRF Normal 0.20-0.46 [facility] Comment on above: Performed By: #### A 1C, FT4, ANEU, GFR, LIPID, CBC, CMP, TSH, ADIFF #### [place] [address] [place], [place] [address] Reticulocytes, Auto 1.6 % Normal 0.2-2.3 [facility] Comment on above: Performed By: #### A 1C, FT4, ANEU, GFR, LIPID, CBC, CMP, TSH, ADIFF #### [place] [id number] [place], [place] [address] No Panel Informationon 02-20 Culture Wound Aerobe Few normal skin mariano ra present. Sensitivity testing not indicated. [facility] GS 4+ Polymorphonuclear cells 2+ Gram Positive Cocci [facility] CT ABDOMEN/PELVIS W/CONTRAST on 02-18-2025 CT [...] 4:10:18 PM Ordering Provider: FITZ GA Normal [facility] .Auto Diffon 02-10-2025 Basophil, Absolute 0.0 10 3/mcL Normal 0.0-0.3 [facility] Comment on above: Performed By: #### A 1C, FT4, ANEU, GFR, LIPID, CBC, CMP, TSH, ADIFF #### [facility] [address] [place], [place] [address] Basophils/100 WBC (Bld) 0.5 % Normal 0.0-2.5 [facility] Comment on above: Performed By: #### A 1C, FT4, ANEU, GFR, LIPID, CBC, CMP, TSH, ADIFF #### [address] [address] Eosinophil, Absolute 0.2 10 3/mcL Normal 0.0-0.7 [facility] Comment on above: Performed By: #### A 1C, FT4, ANEU, GFR, LIPID, CBC, CMP, TSH, ADIFF #### [address] [address] Eosinophils/100 WBC (Bld) 4.3 % Normal 0.0-6.0 [facility] Comment on above: Performed By: #### A 1C, FT4, ANEU, GFR, LIPID, CBC, CMP, TSH, ADIFF #### [address] [address] Lymphocyte, Absolute 1.1 10 3/mcL Normal 0.9-4.3 [facility] Comment on above: Performed By: #### A 1C, FT4, ANEU, GFR, LIPID, CBC, CMP, TSH, ADIFF #### [address] [address] Lymphocytes/100 WBC (Bld) 23.7 % Normal 20.0-40.0 [facility] Comment on above: Performed By: #### A 1C, FT4, ANEU, GFR, LIPID, CBC, CMP, TSH, ADIFF #### [address] [address] Monocyte, Absolute 0.4 10 3/mcL Normal 0.1-1.4 [facility] Comment on above: Performed By: #### A 1C, FT4, ANEU, GFR, LIPID, CBC, CMP, TSH, ADIFF #### [address] [address] Monocytes/100 WBC (Bld) 8.2 % Normal 2.0-13.0 [facility] Comment on above: Performed By: #### A 1C, FT4, ANEU, GFR, LIPID, CBC, CMP, TSH, ADIFF #### [address] [address] Neutrophils/100 WBC (Bld) 63.3 % Normal 50.0-75.0 [facility] Comment on above: Performed By: #### A 1C, FT4, ANEU, GFR, LIPID, CBC, CMP, TSH, ADIFF #### [address] [address] .GFRon 02-10-2025 Estimated Glomerular Filtration Rate 71 ml/min/1.73sqm Normal [facility] Comment on above: Result Comment: Stages of [...] GFR, LIPID, CBC, CMP, TSH, ADIFF #### [address] [address] .NEUABSon 02-10-2025 Neutrophil, Absolute 3.0 10 3/mcL Normal 2.3-8.1 [facility] Comment on above: Performed By: #### A 1C, FT4, ANEU, GFR, LIPID, CBC, CMP, TSH, ADIFF #### [place] [id number] [place], [place] [address] A1Con 02-10-2025 Glucose [Mass/Vol] 146 mg/dL Normal [facility] Comment on above: Result Comment: Eugenia mated Average Glucose calculated by equation ((28.7xA1C)-46.7) Estimated average glucose (eAG) is a calculated value from Hemoglobin A1C and is customer engagement representative of the average blood glucose level in the last 2-3 month period. Normal range: less than 114 mg/dL Performed By: #### A 1C, FT4, ANEU, GFR, LIPID, CBC, CMP, TSH, ADIFF ####[place] [address] HbA1c (Bld) [Mass fraction] 6.7 % High 4.3-6.4 [facility] Comment on above: Performed By: #### A 1C, FT4, ANEU, GFR, LIPID, CBC, CMP, TSH, ADIFF ####[place] [address] CBCon 02-10-2025 Erythrocyte distribution width (RBC) [Ratio] 15.5 % Normal 11.5-15.5 [facility] Comment on above: Performed By: #### A 1C, FT4, ANEU, GFR, LIPID, CBC, CMP, TSH, ADIFF #### [place] [address] Hematocrit (Bld) [Volume fraction] 30.2 % Low 34.0-46.0 [facility] Comment on above: Performed By: #### A 1C, FT4, ANEU, GFR, LIPID, CBC, CMP, TSH, ADIFF #### [place] [address] Hgb 9.9 G/dL Low 12.0-16.0 [facility] Comment on above: Performed By: #### A 1C, FT4, ANEU, GFR, LIPID, CBC, CMP, TSH, ADIFF #### [place] [address] MCH (RBC) [Entitic mass] 29.5 pg Normal 27.0-33.0 [facility] Comment on above: Performed By: #### A 1C, FT4, ANEU, GFR, LIPID, CBC, CMP, TSH, ADIFF #### [place] [address] MCHC 32.8 G/dL Normal 32.0-36.0 [facility] Comment on above: Performed By: #### A 1C, FT4, ANEU, GFR, LIPID, CBC, CMP, TSH, ADIFF #### [address] [place] [address] MCV (RBC) [Entitic vol] 90.0 fL Normal 80.0-99.0 [facility] Comment on above: Performed By: #### A 1C, FT4, ANEU, GFR, LIPID, CBC, CMP, TSH, ADIFF #### [address] [address] Platelet 290 10 3/mcL Normal 150-450 [facility] Comment on above: Performed By: #### A 1C, FT4, ANEU, GFR, LIPID, CBC, CMP, TSH, ADIFF #### [address] [address] Platelet mean volume (Bld) [Entitic vol] 6.9 fL Normal 6.6-10.5 [facility] Comment on above: Performed By: #### A 1C, FT4, ANEU, GFR, LIPID, CBC, CMP, TSH, ADIFF #### [address] [address] RBC 3.35 10 6/mcL Low 4.10-5.30 [facility] Comment on above: Performed By: #### A 1C, FT4, ANEU, GFR, LIPID, CBC, CMP, TSH, ADIFF #### [address] [address] WBC 4.7 10 3/mcL Normal 4.5-10.8 [facility] Comment on above: Performed By: #### A 1C, FT4, ANEU, GFR, LIPID, CBC, CMP, TSH, ADIFF #### [address] [address] CMPon 02-10-2025 Albumin Level 3.5 G/dL Normal 3.4-4.8 [facility] Comment on above: Performed By: #### A 1C, FT4, ANEU, GFR, LIPID, CBC, CMP, TSH, ADIFF #### [address] [address] Albumin/Globulin [Mass ratio] 1.0 {ratio} Low 1.1-2.5 [facility] Comment on above: Performed By: #### A 1C, FT4, ANEU, GFR, LIPID, CBC, CMP, TSH, ADIFF #### [place] [address] ALP [Catalytic activity/Vol] 195 U/L High 40-135 [facility] Comment on above: Performed By: #### A 1C, FT4, ANEU, GFR, LIPID, CBC, CMP, TSH, ADIFF #### [place] [address] ALT [Catalytic activity/Vol] 67 U/L High 14-59 [facility] Comment on above: Performed By: #### A 1C, FT4, ANEU, GFR, LIPID, CBC, CMP, TSH, ADIFF #### [place] [address] AST [Catalytic activity/Vol] 98 U/L High 10-40 [facility] Comment on above: Performed By: #### A 1C, FT4, ANEU, GFR, LIPID, CBC, CMP, TSH, ADIFF #### [place] [address] Bili Total 0.5 mg/dL Normal 0.2-1.0 [facility] Comment on above: Result Comment: Use of this assay is not recommended for patients undergoing treatment with eltrombopag due to the potential for falsely elevated results. Performed By: #### A 1C, FT4, ANEU, GFR, LIPID, CBC, CMP, TSH, ADIFF #### [place] [address] BUN/Creatinine Ratio 13 ratio Normal 7-27 [facility] Comment on above: Performed By: #### A 1C, FT4, ANEU, GFR, LIPID, CBC, CMP, TSH, ADIFF #### [place] [address] Calcium [Mass/Vol] 9.4 mg/dL Normal 8.4-10.2 [facility] Comment on above: Performed By: #### A 1C, FT4, ANEU, GFR, LIPID, CBC, CMP, TSH, ADIFF #### [address] [address] Chloride [Moles/Vol] 106 mmol/L Normal 98-107 [facility] Comment on above: Performed By: #### A 1C, FT4, ANEU, GFR, LIPID, CBC, CMP, TSH, ADIFF #### [address] [address] CO2 [Moles/Vol] 27 mmol/L Normal 23-31 [facility] Comment on above: Performed By: #### A 1C, FT4, ANEU, GFR, LIPID, CBC, CMP, TSH, ADIFF #### [place] [address] Creatinine [Mass/Vol] 0.82 mg/dL Normal 0.51-0.95 [facility] Comment on above: Performed By: #### A 1C, FT4, ANEU, GFR, LIPID, CBC, CMP, TSH, ADIFF #### [place] [address] Electrolyte Balance 10.0 mEq/L Normal 4.0-15.0 [facility] Comment on above: Performed By: #### A 1C, FT4, ANEU, GFR, LIPID, CBC, CMP, TSH, ADIFF #### [address] [address] Globulin 3.5 G/dL Normal 2.7-4.4 [facility] Comment on above: Performed By: #### A 1C, FT4, ANEU, GFR, LIPID, CBC, CMP, TSH, ADIFF #### [address] [address] Glucose [Mass/Vol] 120 mg/dL High 83-110 [facility] Comment on above: Performed By: #### A 1C, FT4, ANEU, GFR, LIPID, CBC, CMP, TSH, ADIFF #### [place] [address] Potassium [Moles/Vol] 3.5 mmol/L Normal 3.5-5.1 [facility] Comment on above: Performed By: #### A 1C, FT4, ANEU, GFR, LIPID, CBC, CMP, TSH, ADIFF #### [address] [address] Sodium [Moles/Vol] 143 mmol/L Normal 136-145 [facility] Comment on above: Performed By: #### A 1C, FT4, ANEU, GFR, LIPID, CBC, CMP, TSH, ADIFF #### [address] [address] Total Protein 7.0 G/dL Normal 6.4-8.2 [facility] Comment on above: Performed By: #### A 1C, FT4, ANEU, GFR, LIPID, CBC, CMP, TSH, ADIFF #### [address] [address] Urea nitrogen [Mass/Vol] 11 mg/dL Normal 7-18 [facility] Comment on above: Performed By: #### A 1C, FT4, ANEU, GFR, LIPID, CBC, CMP, TSH, ADIFF #### [address] [address] FT4on 02-10-2025 Free T4 [Mass/Vol] 0.87 ng/dL Normal 0.76-1.46 [facility] Comment on above: Performed By: #### A 1C, FT4, ANEU, GFR, LIPID, CBC, CMP, TSH, ADIFF #### [address] [address] LABORATORYOrdered By: SYSTEM SYSTEM on 02-10-2025 Albumin [...] calculated value from Hemoglobin A1C and is customer engagement representative of the average blood glucose level [...] 02-10-2025 Cholesterol [Mass/Vol] 115 mg/dL Normal 0-200 [facility] Comment on above: Result Comment: Chol esterol Reference Interval: Less than 200 Desirable 200-239 Borderline high risk 240 and above High risk Performed By: #### A 1C, FT4, ANEU, GFR, LIPID, CBC, CMP, TSH, ADIFF #### [place] [id number] [place], [place] [address] Cholesterol in HDL [Mass/Vol] 35 mg/dL Low 40-60 [facility] Comment on above: Performed By: #### A 1C, FT4, ANEU, GFR, LIPID, CBC, CMP, TSH, ADIFF #### [place] [address] [place], [place] [address] Cholesterol in LDL [Mass/Vol] 46 mg/dL Normal 0-130 [facility] Comment on above: Performed By: #### A 1C, FT4, ANEU, GFR, LIPID, CBC, CMP, TSH, ADIFF #### [facility] [address] [place], [place] [address] Triglyceride [Mass/Vol] 170 mg/dL High 0-150 [facility] Comment on above: Result Comment: Trig lyceride Reference Interval: Less than 150 Normal 150-199 Borderline high risk 200-499 High risk 500 or higher Very high risk Performed By: #### A 1C, FT4, ANEU, GFR, LIPID, CBC, CMP, TSH, ADIFF #### [place] [address] [place], [place] [address] TSHon 02-10-2025 TSH Qn 4.13 m[IU]/L High 0.36-3.74 [facility] Comment on above: Performed By: #### A 1C, FT4, ANEU, GFR, LIPID, CBC, CMP, TSH, ADIFF #### [place] [address] [place], [place] [address] LABORATORYOrdered By: Dhruv Cook on 01-30-2025 Glucose [Mass/Vol] 167 mg/dL High 82 - 115 mg/dL [facility] HbA1c (Bld) [Mass fraction] 6.6 % [facility] Performed By Dhruv Cook PharmD [facility] Performing Location [facility] LABORATORYOrdered By: Dhruv Cook on 01-02-2025 Glucose [Mass/Vol] 151 mg/dL High 82 - 115 mg/dL [facility] .Auto Diff10-21-2024 Basophil, Absolute 0.1 10 3/mcL Normal 0.0-0.2 [facility] Comment on above: Performed By: #### T SH, GFR, CBC, LIPID, A1C, ADIFF, CMP, ANEU, FT4 ####[address] [place], [place] [address] Basophils/100 WBC (Bld) 0.9 % Normal 0.0-2.5 [facility] Comment on above: Performed By: #### T SH, GFR, CBC, LIPID, A1C, ADIFF, CMP, ANEU, FT4 ####[address] [place], [place] [address] Eosinophil, Absolute 0.2 10 3/mcL Normal 0.0-0.7 [facility] Comment on above: Performed By: #### T SH, GFR, CBC, LIPID, A1C, ADIFF, CMP, ANEU, FT4 ####[address] [place], [place] [address] Eosinophils/100 WBC (Bld) 3.2 % Normal 0.0-7.0 [facility] Comment on above: Performed By: #### T SH, GFR, CBC, LIPID, A1C, ADIFF, CMP, ANEU, FT4 ####[address] [place], [place] [address] Lymphocyte, Absolute 1.3 10 3/mcL Normal 0.9-4.3 [facility] Comment on above: Performed By: #### T SH, GFR, CBC, LIPID, A1C, ADIFF, CMP, ANEU, FT4 ####[address] [place], [place] [address] Lymphocytes/100 WBC (Bld) 19.3 % Low 20.0-40.0 [facility] Comment on above: Performed By: #### T SH, GFR, CBC, LIPID, A1C, ADIFF, CMP, ANEU, FT4 ####[address] [place], [place] [address] Monocyte, Absolute 0.5 10 3/mcL Normal 0.1-1.4 [facility] Comment on above: Performed By: #### T SH, GFR, CBC, LIPID, A1C, ADIFF, CMP, ANEU, FT4 ####[address] [place], [place] [address] Monocytes/100 WBC (Bld) 7.6 % Normal 2.0-13.0 [facility] Comment on above: Performed By: #### T SH, GFR, CBC, LIPID, A1C, ADIFF, CMP, ANEU, FT4 ####[address] [place], [place] [address] Neutrophils/100 WBC (Bld) 69.0 % Normal 50.0-75.0 [facility] Comment on above: Performed By: #### T SH, GFR, CBC, LIPID, A1C, ADIFF, CMP, ANEU, FT4 ####[address] [place], [place] [address] .GFRon 10-21-2024 GFR 56 ml/min/1.73sqm [facility] Comment on above: Result Comment: [...] GFR, LIPID, CBC, CMP, TSH, ADIFF #### [place] [address] [place], [place] [address] GFR Non- 46 ml/min/1.73sqm [facility] Comment on above: Result Comment: [...] GFR, LIPID, CBC, CMP, TSH, ADIFF #### [address] [address] .NEUABSon 10-21-2024 Neutrophil, Absolute 4.6 10 3/mcL Normal 2.3-8.1 [facility] Comment on above: Performed By: #### T SH, GFR, CBC, LIPID, A1C, ADIFF, CMP, ANEU, FT4 ####[address] [address] A1Con 10-21-2024 Glucose [Mass/Vol] 183 mg/dL Normal [facility] Comment on above: Result Comment: Eugenia mated Average Glucose calculated by equation ((28.7xA1C)-46.7) Estimated average glucose (eAG) is a calculated value from Hemoglobin A1C and is customer engagement representative of the average blood glucose level in the last 2-3 month period. Normal range: less than 114 mg/dL Performed By: #### A 1C, FT4, ANEU, GFR, LIPID, CBC, CMP, TSH, ADIFF #### [address] [address] HbA1c (Bld) [Mass fraction] 8.0 % High 4.3-6.4 [facility] Comment on above: Performed By: #### A 1C, FT4, ANEU, GFR, LIPID, CBC, CMP, TSH, ADIFF #### [place] [address] [place], [place] [address] CBCon 10-21-2024 Erythrocyte distribution width (RBC) [Ratio] 14.2 % Normal 11.5-15.5 [facility] Comment on above: Performed By: #### T SH, GFR, CBC, LIPID, A1C, ADIFF, CMP, ANEU, FT4 ####[address] [place], [place] [address] Hematocrit (Bld) [Volume fraction] 37.8 % Normal 34.0-46.0 [facility] Comment on above: Performed By: #### T SH, GFR, CBC, LIPID, A1C, ADIFF, CMP, ANEU, FT4 ####[address] [place], [place] [address] Hgb 12.2 G/dL Normal 12.0-16.0 [facility] Comment on above: Performed By: #### T SH, GFR, CBC, LIPID, A1C, ADIFF, CMP, ANEU, FT4 ####[address] [place] [id number] MCH (RBC) [Entitic mass] 30.7 pg Normal 27.0-33.0 [facility] Comment on above: Performed By: #### T SH, GFR, CBC, LIPID, A1C, ADIFF, CMP, ANEU, FT4 ####[address] [place], [place] [address] MCHC 32.2 G/dL Normal 32.0-36.0 [facility] Comment on above: Performed By: #### T SH, GFR, CBC, LIPID, A1C, ADIFF, CMP, ANEU, FT4 ####[place] [address] [place], [place] [address] MCV (RBC) [Entitic vol] 95.2 fL Normal 80.0-99.0 [facility] Comment on above: Performed By: #### T SH, GFR, CBC, LIPID, A1C, ADIFF, CMP, ANEU, FT4 ####[place] [address] [place], [place] [address] Platelet 216 10 3/mcL Normal 150-450 [facility] Comment on above: Performed By: #### T SH, GFR, CBC, LIPID, A1C, ADIFF, CMP, ANEU, FT4 ####[address] [place] [id number] Platelet mean volume (Bld) [Entitic vol] 7.6 fL Normal 6.6-10.5 [facility] Comment on above: Performed By: #### T SH, GFR, CBC, LIPID, A1C, ADIFF, CMP, ANEU, FT4 ####[place] [address] [place], [place] [address] RBC 3.96 10 6/mcL Low 4.10-5.30 [facility] Comment on above: Performed By: #### T SH, GFR, CBC, LIPID, A1C, ADIFF, CMP, ANEU, FT4 ####[address] [place], [place] [address] WBC 6.6 10 3/mcL Normal 4.5-10.8 [facility] Comment on above: Performed By: #### T SH, GFR, CBC, LIPID, A1C, ADIFF, CMP, ANEU, FT4 ####[address] [address] CMPon 10-21-2024 Albumin Level 3.4 G/dL Normal 3.4-4.8 [facility] Comment on above: Performed By: #### A 1C, FT4, ANEU, GFR, LIPID, CBC, CMP, TSH, ADIFF #### [address] [address] Albumin/Globulin [Mass ratio] 1.1 {ratio} Normal 1.1-2.5 [facility] Comment on above: Performed By: #### A 1C, FT4, ANEU, GFR, LIPID, CBC, CMP, TSH, ADIFF #### [address] [address] ALP [Catalytic activity/Vol] 71 U/L Normal 40-135 [facility] Comment on above: Performed By: #### A 1C, FT4, ANEU, GFR, LIPID, CBC, CMP, TSH, ADIFF #### [place] [address] [place], [place] [address] ALT [Catalytic activity/Vol] 12 U/L Low 14-59 [facility] Comment on above: Performed By: #### A 1C, FT4, ANEU, GFR, LIPID, CBC, CMP, TSH, ADIFF #### [address] [address] AST [Catalytic activity/Vol] 18 U/L Normal 10-40 [facility] Comment on above: Performed By: #### A 1C, FT4, ANEU, GFR, LIPID, CBC, CMP, TSH, ADIFF #### [address] [address] Bili Total 0.5 mg/dL Normal 0.2-1.0 [facility] Comment on above: Result Comment: Use of this assay is not recommended for patients undergoing treatment with eltrombopag due to the potential for falsely elevated results. Performed By: #### A 1C, FT4, ANEU, GFR, LIPID, CBC, CMP, TSH, ADIFF #### [address] [address] BUN/Creatinine Ratio 16 ratio Normal 7-27 [facility] Comment on above: Performed By: #### A 1C, FT4, ANEU, GFR, LIPID, CBC, CMP, TSH, ADIFF #### [address] [address] Calcium [Mass/Vol] 9.0 mg/dL Normal 8.4-10.2 [facility] Comment on above: Performed By: #### A 1C, FT4, ANEU, GFR, LIPID, CBC, CMP, TSH, ADIFF #### [address] [address] Chloride [Moles/Vol] 106 mmol/L Normal 98-107 [facility] Comment on above: Performed By: #### A 1C, FT4, ANEU, GFR, LIPID, CBC, CMP, TSH, ADIFF #### [address] [address] CO2 [Moles/Vol] 26 mmol/L Normal 23-31 [facility] Comment on above: Performed By: #### A 1C, FT4, ANEU, GFR, LIPID, CBC, CMP, TSH, ADIFF #### [address] [address] Creatinine [Mass/Vol] 1.13 mg/dL High 0.55-1.02 [facility] Comment on above: Result Comment: Test ing performed on Siemens Dimension EXL analyzer using a modified kinetic Eusebio technique. Performed By: #### A 1C, FT4, ANEU, GFR, LIPID, CBC, CMP, TSH, ADIFF #### [address] [address] Electrolyte Balance 11.0 mEq/L Normal 4.0-15.0 [facility] Comment on above: Performed By: #### A 1C, FT4, ANEU, GFR, LIPID, CBC, CMP, TSH, ADIFF #### [address] [address] Globulin 3.0 G/dL Normal [facility] Comment on above: Performed By: #### A 1C, FT4, ANEU, GFR, LIPID, CBC, CMP, TSH, ADIFF #### [address] [address] Glucose [Mass/Vol] 162 mg/dL High 83-110 [facility] Comment on above: Performed By: #### A 1C, FT4, ANEU, GFR, LIPID, CBC, CMP, TSH, ADIFF #### [address] [address] Potassium [Moles/Vol] 4.0 mmol/L Normal 3.5-5.1 [facility] Comment on above: Performed By: #### A 1C, FT4, ANEU, GFR, LIPID, CBC, CMP, TSH, ADIFF #### [address] [address] Sodium [Moles/Vol] 143 mmol/L Normal 136-145 [facility] Comment on above: Performed By: #### A 1C, FT4, ANEU, GFR, LIPID, CBC, CMP, TSH, ADIFF #### [address] [address] Total Protein 6.4 G/dL Normal 6.4-8.2 [facility] Comment on above: Performed By: #### A 1C, FT4, ANEU, GFR, LIPID, CBC, CMP, TSH, ADIFF #### [address] [address] Urea nitrogen [Mass/Vol] 18 mg/dL Normal 7-18 [facility] Comment on above: Performed By: #### A 1C, FT4, ANEU, GFR, LIPID, CBC, CMP, TSH, ADIFF #### [place] [address] [place], [place] [address] FT4on 10-21-2024 Free T4 [Mass/Vol] 0.97 ng/dL Normal 0.76-1.46 [facility] Comment on above: Performed By: #### A 1C, FT4, ANEU, GFR, LIPID, CBC, CMP, TSH, ADIFF #### [place] [address] LABORATORYOrdered By: SYSTEM SYSTEM on 10-21-2024 Albumin [...] calculated value from Hemoglobin A1C and is customer engagement representative of the average blood glucose level [...] 10-21-2024 Cholesterol [Mass/Vol] 149 mg/dL Normal 0-200 [facility] Comment on above: Result Comment: Chol esterol Reference Interval: Less than 200 Desirable 200-239 Borderline high risk 240 and above High risk Performed By: #### A 1C, FT4, ANEU, GFR, LIPID, CBC, CMP, TSH, ADIFF #### [address] [address] Cholesterol in HDL [Mass/Vol] 38 mg/dL Low 40-60 [facility] Comment on above: Performed By: #### A 1C, FT4, ANEU, GFR, LIPID, CBC, CMP, TSH, ADIFF #### [place] [address] [place], [place] [address] Cholesterol in LDL [Mass/Vol] 75 mg/dL Normal 0-130 [facility] Comment on above: Performed By: #### A 1C, FT4, ANEU, GFR, LIPID, CBC, CMP, TSH, ADIFF #### [place] [address] [place], [place] [address] Triglyceride [Mass/Vol] 181 mg/dL High 0-150 [facility] Comment on above: Result Comment: Trig lyceride Reference Interval: Less than 150 Normal 150-199 Borderline high risk 200-499 High risk 500 or higher Very high risk Performed By: #### A 1C, FT4, ANEU, GFR, LIPID, CBC, CMP, TSH, ADIFF #### [place] [address] [place], [place] [address] TSHon 10-21-2024 TSH Qn 1.72 m[IU]/L Normal 0.36-3.74 [facility] Comment on above: Performed By: #### A 1C, FT4, ANEU, GFR, LIPID, CBC, CMP, TSH, ADIFF #### [address] [address] LABORATORYOrdered By: SYSTEM SYSTEM on 07-10-2024 Albumin [...] calculated value from Hemoglobin A1C and is customer engagement representative of the average blood glucose level [...] risk .GFRon 04-03-2024 GFR 60 ml/min/1.73sqm Normal [facility] ([place] Comment on above: Result Comment: GFR Population [...] FR, A1C, CMP, LIPID, TSH #### [address] [place] [address] GFR Non- 50 ml/min/1.73sqm Normal [facility] ([place] Comment on above: Result Comment: GFR Population [...] G FR, A1C, CMP, LIPID, TSH #### [address] [address] A1Con 04-03-2024 HbA1c (Bld) [Mass fraction] 7.9 % High 4.3-6.4 [facility] ([place] Comment on above: Performed By: #### G FR, A1C, CMP, LIPID, TSH #### [address] [address] CMPon 04-03-2024 Albumin Level 3.6 G/dL Normal 3.4-4.8 [facility] ([place] Comment on above: Performed By: #### G FR, A1C, CMP, LIPID, TSH #### [address] [address] Albumin/Globulin [Mass ratio] 1.1 {ratio} Normal 1.1-2.5 [facility] ([place] Comment on above: Performed By: #### G FR, A1C, CMP, LIPID, TSH #### [address] [address] ALP [Catalytic activity/Vol] 101 U/L Normal 40-135 [facility] ([place] Comment on above: Performed By: #### G FR, A1C, CMP, LIPID, TSH #### [address] [address] ALT [Catalytic activity/Vol] 36 U/L Normal 14-59 [facility] ([place] Comment on above: Performed By: #### G FR, A1C, CMP, LIPID, TSH #### [address] [address] AST [Catalytic activity/Vol] 18 U/L Normal 10-40 [facility] ([place] Comment on above: Performed By: #### G FR, A1C, CMP, LIPID, TSH #### [address] [address] Bili Total 0.6 mg/dL Normal 0.2-1.0 [facility] ([place] Comment on above: Result Comment: Use of this assay is not recommended for patients undergoing treatment with eltrombopag due to the potential for falsely elevated results. Performed By: #### G FR, A1C, CMP, LIPID, TSH #### [address] [address] BUN/Creatinine Ratio 16 ratio Normal 7-27 [facility] ([place] Comment on above: Performed By: #### G FR, A1C, CMP, LIPID, TSH #### [address] [address] Calcium [Mass/Vol] 8.8 mg/dL Normal 8.4-10.2 [facility] ([place]) Comment on above: Performed By: #### G FR, A1C, CMP, LIPID, TSH #### [address] [address] Chloride [Moles/Vol] 104 mmol/L Normal 98-107 [facility] ([place] Comment on above: Performed By: #### G FR, A1C, CMP, LIPID, TSH #### [address] [address] CO2 [Moles/Vol] 31 mmol/L Normal 23-31 [facility] ([place] Comment on above: Performed By: #### G FR, A1C, CMP, LIPID, TSH #### [address] [address] Creatinine [Mass/Vol] 1.06 mg/dL High 0.55-1.02 [facility] ([place]) Comment on above: Performed By: #### G FR, A1C, CMP, LIPID, TSH #### [address] [address] Electrolyte Balance 8.0 mEq/L Normal 4.0-15.0 [facility] ([place]) Comment on above: Performed By: #### G FR, A1C, CMP, LIPID, TSH #### [address] [address] Globulin 3.2 G/dL Normal [facility] ([place] Comment on above: Performed By: #### G FR, A1C, CMP, LIPID, TSH #### [address] [address] Glucose [Mass/Vol] 167 mg/dL High 83-110 [facility] ([place]) Comment on above: Performed By: #### G FR, A1C, CMP, LIPID, TSH #### [address] [address] Potassium [Moles/Vol] 4.5 mmol/L Normal 3.5-5.1 [facility] ([place]) Comment on above: Performed By: #### G FR, A1C, CMP, LIPID, TSH #### [address] [address] Sodium [Moles/Vol] 143 mmol/L Normal 136-145 [facility] ([place]) Comment on above: Performed By: #### G FR, A1C, CMP, LIPID, TSH #### [address] [address] Total Protein 6.8 G/dL Normal 6.4-8.2 [facility] ([place] Comment on above: Performed By: #### G FR, A1C, CMP, LIPID, TSH #### [address] [address] Urea nitrogen [Mass/Vol] 17 mg/dL Normal 7-18 [facility] ([place] Comment on above: Performed By: #### G FR, A1C, CMP, LIPID, TSH #### [address] [address] LABORATORYOrdered By: SYSTEM SYSTEM on 04-03-2024 Albumin [...] 04-03-2024 Cholesterol [Mass/Vol] 167 mg/dL Normal 0-200 [facility] ([place] Comment on above: Result Comment: Chol esterol Reference Interval: Less than 200 Desirable 200-239 Borderline high risk 240 and above High risk Performed By: #### G FR, A1C, CMP, LIPID, TSH #### [address] [address] Cholesterol in HDL [Mass/Vol] 40 mg/dL Normal 40-60 [facility] ([place] Comment on above: Performed By: #### G FR, A1C, CMP, LIPID, TSH #### [address] [address] Cholesterol in LDL [Mass/Vol] 77 mg/dL Normal 0-130 [facility] ([place] Comment on above: Performed By: #### G FR, A1C, CMP, LIPID, TSH #### [address] [address] Triglyceride [Mass/Vol] 251 mg/dL High 0-150 [facility] ([place] Comment on above: Result Comment: Trig lyceride Reference Interval: Less than 150 Normal 150-199 Borderline high risk 200-499 High risk 500 or higher Very high risk Performed By: #### G FR, A1C, CMP, LIPID, TSH #### [address] [address] TSHon 04-03-2024 TSH Qn 2.17 m[IU]/L Normal 0.36-3.74 [facility] ([place] Comment on above: Performed By: #### G FR, A1C, CMP, LIPID, TSH #### [address] [address] .Auto Diffon 01-10-2024 Basophil, Absolute 0.1 10 3/mcL Normal 0.0-0.2 [facility] ([place]) Comment on above: Performed By: #### G FR, A1C, CMP, LIPID, TSH #### [address] [address] Basophils/100 WBC (Bld) 1.0 % Normal 0.0-2.5 [facility] ([place] Comment on above: Performed By: #### G FR, A1C, CMP, LIPID, TSH #### [address] [address] Eosinophil, Absolute 0.4 10 3/mcL Normal 0.0-0.4 [facility] ([place]) Comment on above: Performed By: #### G FR, A1C, CMP, LIPID, TSH #### [address] [address] Eosinophils/100 WBC (Bld) 6.6 % Normal 0.0-7.0 [facility] ([place]) Comment on above: Performed By: #### G FR, A1C, CMP, LIPID, TSH #### [address] [address] Lymphocyte, Absolute 1.1 10 3/mcL Normal 0.8-3.9 [facility] ([place]) Comment on above: Performed By: #### G FR, A1C, CMP, LIPID, TSH #### [address] [address] Lymphocytes/100 WBC (Bld) 18.4 % Normal 10.0-50.0 [facility] ([place] Comment on above: Performed By: #### G FR, A1C, CMP, LIPID, TSH #### [address] [address] Monocyte, Absolute 0.5 10 3/mcL Normal 0.2-1.0 [facility] ([place] Comment on above: Performed By: #### G FR, A1C, CMP, LIPID, TSH #### [address] [address] Monocytes/100 WBC (Bld) 8.4 % Normal 1.7-13.0 [facility] ([place]) Comment on above: Performed By: #### G FR, A1C, CMP, LIPID, TSH #### [address] [address] Neutrophils/100 WBC (Bld) 65.6 % Normal 37.0-80.0 [facility] ([place]) Comment on above: Performed By: #### G FR, A1C, CMP, LIPID, TSH #### [address] [address] .GFRon 01-10-2024 GFR 57 ml/min/1.73sqm Normal [facility] ([place] Comment on above: Result Comment: GFR Population [...] G FR, A1C, CMP, LIPID, TSH #### [address] [address] GFR Non- 47 ml/min/1.73sqm Normal [facility] ([place] Comment on above: Result Comment: GFR Population [...] FR, A1C, CMP, LIPID, TSH #### Lali [address] [address] .NEUABSon 01-10-2024 Neutrophil, Absolute 3.9 10 3/mcL Normal 2.9-6.2 [facility] ([place] Comment on above: Performed By: #### G FR, A1C, CMP, LIPID, TSH #### [address] [address] A1Con 01-10-2024 HbA1c (Bld) [Mass fraction] 8.0 % High 4.3-6.4 [facility] ([place] Comment on above: Performed By: #### G FR, A1C, CMP, LIPID, TSH #### [place] [id number] CBCon 01-10-2024 Erythrocyte distribution width (RBC) [Ratio] 15.8 % High 11.5-14.5 [facility] ([place] Comment on above: Performed By: #### G FR, A1C, CMP, LIPID, TSH #### [place] [address] Hematocrit (Bld) [Volume fraction] 33.2 % Low 37.0-47.0 [facility] ([place] Comment on above: Performed By: #### G FR, A1C, CMP, LIPID, TSH #### [place] [id number] Hgb 10.9 G/dL Low 12.0-16.0 [facility] ([place] Comment on above: Performed By: #### G FR, A1C, CMP, LIPID, TSH #### [place] [id number] MCH (RBC) [Entitic mass] 29.8 pg Normal 27.0-31.2 [facility] ([place] Comment on above: Performed By: #### G FR, A1C, CMP, LIPID, TSH #### [place] [id number] MCHC 32.8 G/dL Low 33.0-37.0 [facility] ([place] Comment on above: Performed By: #### G FR, A1C, CMP, LIPID, TSH #### [place] [id number] MCV (RBC) [Entitic vol] 90.8 fL Normal 80.0-94.0 [facility] ([place] Comment on above: Performed By: #### G FR, A1C, CMP, LIPID, TSH #### [address] [address] Platelet 202 10 3/mcL Normal 130-400 [facility] ([place] Comment on above: Performed By: #### G FR, A1C, CMP, LIPID, TSH #### [place] [address] [address] Platelet mean volume (Bld) [Entitic vol] 7.6 fL Normal 7.4-10.4 [facility] ([place] Comment on above: Performed By: #### G FR, A1C, CMP, LIPID, TSH #### [address] [address] RBC 3.65 10 6/mcL Low 4.20-5.40 [facility] ([place] Comment on above: Performed By: #### G FR, A1C, CMP, LIPID, TSH #### [address] [address] WBC 5.9 10 3/mcL Normal 4.6-10.8 [facility] ([place] Comment on above: Performed By: #### G FR, A1C, CMP, LIPID, TSH #### [address] [address] CMPon 01-10-2024 Albumin Level 3.5 G/dL Normal 3.4-4.8 [facility] ([place] Comment on above: Performed By: #### G FR, A1C, CMP, LIPID, TSH #### [address] [address] Albumin/Globulin [Mass ratio] 1.0 {ratio} Low 1.1-2.5 [facility] ([place] Comment on above: Performed By: #### G FR, A1C, CMP, LIPID, TSH #### [address] [address] ALP [Catalytic activity/Vol] 101 U/L Normal 40-135 [facility] ([place] Comment on above: Performed By: #### G FR, A1C, CMP, LIPID, TSH #### [address] [address] ALT [Catalytic activity/Vol] 21 U/L Normal 14-59 [facility] ([place] Comment on above: Performed By: #### G FR, A1C, CMP, LIPID, TSH #### [address] [address] AST [Catalytic activity/Vol] 17 U/L Normal 10-40 [facility] ([place]) Comment on above: Performed By: #### G FR, A1C, CMP, LIPID, TSH #### [address] [address] Bili Total 0.6 mg/dL Normal 0.2-1.0 [facility] ([place]) Comment on above: Result Comment: Use of this assay is not recommended for patients undergoing treatment with eltrombopag due to the potential for falsely elevated results. Performed By: #### G FR, A1C, CMP, LIPID, TSH #### [address] [address] BUN/Creatinine Ratio 18 ratio Normal 7-27 [facility] ([place]) Comment on above: Performed By: #### G FR, A1C, CMP, LIPID, TSH #### [address] [address] Calcium [Mass/Vol] 8.8 mg/dL Normal 8.4-10.2 [facility] ([place]) Comment on above: Performed By: #### G FR, A1C, CMP, LIPID, TSH #### [address] [address] Chloride [Moles/Vol] 103 mmol/L Normal 98-107 [facility] ([place]) Comment on above: Performed By: #### G FR, A1C, CMP, LIPID, TSH #### [address] [address] CO2 [Moles/Vol] 26 mmol/L Normal 23-31 [facility] ([place]) Comment on above: Performed By: #### G FR, A1C, CMP, LIPID, TSH #### [address] [address] Creatinine [Mass/Vol] 1.11 mg/dL High 0.55-1.02 [facility] ([place]) Comment on above: Performed By: #### G FR, A1C, CMP, LIPID, TSH #### [address] [address] Electrolyte Balance 11.0 mEq/L Normal 4.0-15.0 [facility] ([place]) Comment on above: Performed By: #### G FR, A1C, CMP, LIPID, TSH #### [address] [address] Globulin 3.4 G/dL Normal [facility] ([place]) Comment on above: Performed By: #### G FR, A1C, CMP, LIPID, TSH #### [address] [address] Glucose [Mass/Vol] 163 mg/dL High 83-110 [facility] ([place]) Comment on above: Performed By: #### G FR, A1C, CMP, LIPID, TSH #### [address] [address] Potassium [Moles/Vol] 3.9 mmol/L Normal 3.5-5.1 [facility] ([place]) Comment on above: Performed By: #### G FR, A1C, CMP, LIPID, TSH #### [address] [address] Sodium [Moles/Vol] 140 mmol/L Normal 136-145 [facility] ([place]) Comment on above: Performed By: #### G FR, A1C, CMP, LIPID, TSH #### [address] [address] Total Protein 6.9 G/dL Normal 6.4-8.2 [facility] ([place]) Comment on above: Performed By: #### G FR, A1C, CMP, LIPID, TSH #### [address] [address] Urea nitrogen [Mass/Vol] 20 mg/dL High 7-18 [facility] ([place]) Comment on above: Performed By: #### G FR, A1C, CMP, LIPID, TSH #### [address] [place], [place] [address] FT4on 01-10-2024 Free T4 [Mass/Vol] 0.87 ng/dL Normal 0.76-1.46 [facility] ([place]) Comment on above: Performed By: #### G FR, A1C, CMP, LIPID, TSH #### [place] [id number] [place], [place] [address] LABORATORYOrdered By: SYSTEM SYSTEM on 01-10-2024 Albumin [...] 01-10-2024 Cholesterol [Mass/Vol] 165 mg/dL Normal 0-200 [facility] ([place]) Comment on above: Result Comment: Chol esterol Reference Interval: Less than 200 Desirable 200-239 Borderline high risk 240 and above High risk Performed By: #### G FR, A1C, CMP, LIPID, TSH #### [address] [address] Cholesterol in HDL [Mass/Vol] 39 mg/dL Low 40-60 [facility] ([place] Comment on above: Performed By: #### G FR, A1C, CMP, LIPID, TSH #### [address] [address] Cholesterol in LDL [Mass/Vol] 86 mg/dL Normal 0-130 [facility] ([place]) Comment on above: Performed By: #### G FR, A1C, CMP, LIPID, TSH #### [address] [address] Triglyceride [Mass/Vol] 202 mg/dL High 0-150 [facility] ([place]) Comment on above: Result Comment: Trig lyceride Reference Interval: Less than 150 Normal 150-199 Borderline high risk 200-499 High risk 500 or higher Very high risk Performed By: #### G FR, A1C, CMP, LIPID, TSH #### [address] [address] TSHon 01-10-2024 TSH Qn 2.46 m[IU]/L Normal 0.36-3.74 [facility] ([place]) Comment on above: Performed By: #### G FR, A1C, CMP, LIPID, TSH #### [address] [address] .Auto Diffon 09-18-2023 Basophil, Absolute 0.0 10 3/mcL Normal 0.0-0.2 [facility] ([place]) Comment on above: Performed By: #### T SH, ANEU, CBC, ADIFF, A1C, GFR, CMP, URIC, FT4, LIPID #### [address] [address] Basophils/100 WBC (Bld) 0.9 % Normal 0.0-2.5 [facility] ([place]) Comment on above: Performed By: #### T SH, ANEU, CBC, ADIFF, A1C, GFR, CMP, URIC, FT4, LIPID #### [address] [address] Eosinophil, Absolute 0.2 10 3/mcL Normal 0.0-0.4 [facility] ([place]) Comment on above: Performed By: #### T SH, ANEU, CBC, ADIFF, A1C, GFR, CMP, URIC, FT4, LIPID #### [address] [address] Eosinophils/100 WBC (Bld) 3.7 % Normal 0.0-7.0 [facility] ([place]) Comment on above: Performed By: #### T SH, ANEU, CBC, ADIFF, A1C, GFR, CMP, URIC, FT4, LIPID #### [address] [address] Lymphocyte, Absolute 1.6 10 3/mcL Normal 0.8-3.9 [facility] ([place]) Comment on above: Performed By: #### T SH, ANEU, CBC, ADIFF, A1C, GFR, CMP, URIC, FT4, LIPID #### [address] [address] Lymphocytes/100 WBC (Bld) 28.6 % Normal 10.0-50.0 [facility] ([place] Comment on above: Performed By: #### T SH, ANEU, CBC, ADIFF, A1C, GFR, CMP, URIC, FT4, LIPID #### [address] [address] Monocyte, Absolute 0.4 10 3/mcL Normal 0.2-1.0 [facility] ([place]) Comment on above: Performed By: #### T SH, ANEU, CBC, ADIFF, A1C, GFR, CMP, URIC, FT4, LIPID #### [address] [address] Monocytes/100 WBC (Bld) 7.9 % Normal 1.7-13.0 [facility] ([place]) Comment on above: Performed By: #### T SH, ANEU, CBC, ADIFF, A1C, GFR, CMP, URIC, FT4, LIPID #### [address] [address] Neutrophils/100 WBC (Bld) 58.9 % Normal 37.0-80.0 [facility] ([place] Comment on above: Performed By: #### T SH, ANEU, CBC, ADIFF, A1C, GFR, CMP, URIC, FT4, LIPID #### [address] [address] .GFRon 09-18-2023 GFR 52 ml/min/1.73sqm Normal [facility] ([place] Comment on above: Result Comment: GFR Population [...] G FR, A1C, CMP, LIPID, TSH #### [address] [address] GFR Non- 43 ml/min/1.73sqm Normal [facility] ([place]) Comment on above: Result Comment: GFR Population [...] G FR, A1C, CMP, LIPID, TSH #### [address] [address] .NEUABSon 09-18-2023 Neutrophil, Absolute 3.3 10 3/mcL Normal 2.9-6.2 [facility] ([place]) Comment on above: Performed By: #### T SH, ANEU, CBC, ADIFF, A1C, GFR, CMP, URIC, FT4, LIPID #### [address] [address] A1Con 09-18-2023 HbA1c (Bld) [Mass fraction] 7.5 % High 4.3-6.4 [facility] ([place]) Comment on above: Performed By: #### G FR, A1C, CMP, LIPID, TSH #### [address] [address] CBCon 09-18-2023 Erythrocyte distribution width (RBC) [Ratio] 14.7 % High 11.5-14.5 [facility] ([place]) Comment on above: Performed By: #### T SH, ANEU, CBC, ADIFF, A1C, GFR, CMP, URIC, FT4, LIPID #### [address] [address] Hematocrit (Bld) [Volume fraction] 34.5 % Low 37.0-47.0 [facility] ([place]) Comment on above: Performed By: #### T SH, ANEU, CBC, ADIFF, A1C, GFR, CMP, URIC, FT4, LIPID #### [address] [address] Hgb 11.2 G/dL Low 12.0-16.0 [facility] ([place]) Comment on above: Performed By: #### T SH, ANEU, CBC, ADIFF, A1C, GFR, CMP, URIC, FT4, LIPID #### [address] [address] MCH (RBC) [Entitic mass] 30.3 pg Normal 27.0-31.2 [facility] ([place]) Comment on above: Performed By: #### T SH, ANEU, CBC, ADIFF, A1C, GFR, CMP, URIC, FT4, LIPID #### [address] [address] MCHC 32.6 G/dL Low 33.0-37.0 [facility] ([place]) Comment on above: Performed By: #### T SH, ANEU, CBC, ADIFF, A1C, GFR, CMP, URIC, FT4, LIPID #### [address] [address] MCV (RBC) [Entitic vol] 93.1 fL Normal 80.0-94.0 [facility] ([place]) Comment on above: Performed By: #### T SH, ANEU, CBC, ADIFF, A1C, GFR, CMP, URIC, FT4, LIPID #### [address] [address] Platelet 202 10 3/mcL Normal 130-400 [facility] ([place]) Comment on above: Performed By: #### T SH, ANEU, CBC, ADIFF, A1C, GFR, CMP, URIC, FT4, LIPID #### [address] [address] Platelet mean volume (Bld) [Entitic vol] 7.6 fL Normal 7.4-10.4 [facility] ([place]) Comment on above: Performed By: #### T SH, ANEU, CBC, ADIFF, A1C, GFR, CMP, URIC, FT4, LIPID #### [address] [address] RBC 3.70 10 6/mcL Low 4.20-5.40 [facility] ([place]) Comment on above: Performed By: #### T SH, ANEU, CBC, ADIFF, A1C, GFR, CMP, URIC, FT4, LIPID #### [address] [address] WBC 5.6 10 3/mcL Normal 4.6-10.8 [facility] ([place]) Comment on above: Performed By: #### T SH, ANEU, CBC, ADIFF, A1C, GFR, CMP, URIC, FT4, LIPID #### [address] [address] CMPon 09-18-2023 Albumin Level 3.7 G/dL Normal 3.4-4.8 [facility] ([place]) Comment on above: Performed By: #### G FR, A1C, CMP, LIPID, TSH #### [address] [address] Albumin/Globulin [Mass ratio] 1.2 {ratio} Normal 1.1-2.5 [facility] ([place]) Comment on above: Performed By: #### G FR, A1C, CMP, LIPID, TSH #### [address] [address] ALP [Catalytic activity/Vol] 91 U/L Normal 40-135 [facility] ([place]) Comment on above: Performed By: #### G FR, A1C, CMP, LIPID, TSH #### [address] [address] ALT [Catalytic activity/Vol] 15 U/L Normal 14-59 [facility] ([place]) Comment on above: Performed By: #### G FR, A1C, CMP, LIPID, TSH #### [address] [address] AST [Catalytic activity/Vol] 19 U/L Normal 10-40 [facility] ([place]) Comment on above: Performed By: #### G FR, A1C, CMP, LIPID, TSH #### [address] [address] Bili Total 0.3 mg/dL Normal 0.2-1.0 [facility] ([place]) Comment on above: Result Comment: Use of this assay is not recommended for patients undergoing treatment with eltrombopag due to the potential for falsely elevated results. Performed By: #### G FR, A1C, CMP, LIPID, TSH #### [address] [address] BUN/Creatinine Ratio 13 ratio Normal 7-27 [facility] ([place]) Comment on above: Performed By: #### G FR, A1C, CMP, LIPID, TSH #### [address] [address] Calcium [Mass/Vol] 9.4 mg/dL Normal 8.4-10.2 [facility] ([place]) Comment on above: Performed By: #### G FR, A1C, CMP, LIPID, TSH #### [address] [address] Chloride [Moles/Vol] 105 mmol/L Normal 98-107 [facility] ([place]) Comment on above: Performed By: #### G FR, A1C, CMP, LIPID, TSH #### [address] [address] CO2 [Moles/Vol] 27 mmol/L Normal 23-31 [facility] ([place]) Comment on above: Performed By: #### G FR, A1C, CMP, LIPID, TSH #### [address] [address] Creatinine [Mass/Vol] 1.21 mg/dL High 0.55-1.02 [facility] ([place]) Comment on above: Performed By: #### G FR, A1C, CMP, LIPID, TSH #### [address] [address] Electrolyte Balance 11.0 mEq/L Normal 4.0-15.0 [facility] ([place]) Comment on above: Performed By: #### G FR, A1C, CMP, LIPID, TSH #### [address] [address] Globulin 3.1 G/dL Normal [facility] ([place]) Comment on above: Performed By: #### G FR, A1C, CMP, LIPID, TSH #### [place] [phone] Glucose [Mass/Vol] 150 mg/dL High 83-110 [facility] ([place]) Comment on above: Performed By: #### G FR, A1C, CMP, LIPID, TSH #### [place] [phone] Potassium [Moles/Vol] 3.9 mmol/L Normal 3.5-5.1 [facility] ([place]) Comment on above: Performed By: #### G FR, A1C, CMP, LIPID, TSH #### [place] [phone] Sodium [Moles/Vol] 143 mmol/L Normal 136-145 [facility] ([place]) Comment on above: Performed By: #### G FR, A1C, CMP, LIPID, TSH #### [address] [address] Total Protein 6.8 G/dL Normal 6.4-8.2 [facility] ([place]) Comment on above: Performed By: #### G FR, A1C, CMP, LIPID, TSH #### [place] [phone] Urea nitrogen [Mass/Vol] 16 mg/dL Normal 7-18 [facility] ([place]) Comment on above: Performed By: #### G FR, A1C, CMP, LIPID, TSH #### [place] [id number] FT4on 09-18-2023 Free T4 [Mass/Vol] 0.93 ng/dL Normal 0.76-1.46 [facility] ([place]) Comment on above: Performed By: #### T SH, ANEU, CBC, ADIFF, A1C, GFR, CMP, URIC, FT4, LIPID #### [place] [id number] [place], [place] [address] LABORATORYOrdered By: SYSTEM SYSTEM on 09-18-2023 Albumin [...] 09-18-2023 Cholesterol [Mass/Vol] 156 mg/dL Normal 0-200 [facility] ([place]) Comment on above: Result Comment: Chol esterol Reference Interval: Less than 200 Desirable 200-239 Borderline high risk 240 and above High risk Performed By: #### G FR, A1C, CMP, LIPID, TSH #### [address] [address] Cholesterol in HDL [Mass/Vol] 45 mg/dL Normal 40-60 [facility] ([place]) Comment on above: Performed By: #### G FR, A1C, CMP, LIPID, TSH #### [address] [address] Cholesterol in LDL [Mass/Vol] 74 mg/dL Normal 0-130 [facility] ([place]) Comment on above: Performed By: #### G FR, A1C, CMP, LIPID, TSH #### [address] [address] Triglyceride [Mass/Vol] 184 mg/dL High 0-150 [facility] ([place]) Comment on above: Result Comment: Trig lyceride Reference Interval: Less than 150 Normal 150-199 Borderline high risk 200-499 High risk 500 or higher Very high risk Performed By: #### G FR, A1C, CMP, LIPID, TSH #### Lali [address] [address] TSHon 09-18-2023 TSH Qn 0.78 m[IU]/L Normal 0.36-3.74 [facility] ([place]) Comment on above: Performed By: #### T SH, ANEU, CBC, ADIFF, A1C, GFR, CMP, URIC, FT4, LIPID #### [place] [address] URICon 09-18-2023 Uric Acid Lvl 4.8 mg/dL Normal 2.6-6.2 [facility] ([place]) Comment on above: Performed By: #### G FR, A1C, CMP, LIPID, TSH #### [address] [address] .GFRon 09-11-2023 GFR 57 ml/min/1.73sqm Normal [facility] ([place]) Comment on above: Result Comment: GFR Population [...] G FR, A1C, CMP, LIPID, TSH #### [address] [address] GFR Non- 47 ml/min/1.73sqm Normal [facility] ([place]) Comment on above: Result Comment: GFR Population [...] G FR, A1C, CMP, LIPID, TSH #### [address] [address] BMPon 09-11-2023 BUN/Creatinine Ratio 10 ratio Normal 7-27 [facility] ([place]) Comment on above: Performed By: #### G FR, A1C, CMP, LIPID, TSH #### [address] [address] Calcium [Mass/Vol] 9.2 mg/dL Normal 8.4-10.2 [facility] ([place]) Comment on above: Performed By: #### G FR, A1C, CMP, LIPID, TSH #### [address] [address] Chloride [Moles/Vol] 104 mmol/L Normal 98-107 [facility] ([place]) Comment on above: Performed By: #### G FR, A1C, CMP, LIPID, TSH #### [address] [address] CO2 [Moles/Vol] 29 mmol/L Normal 23-31 [facility] ([place]) Comment on above: Performed By: #### G FR, A1C, CMP, LIPID, TSH #### [address] [address] Creatinine [Mass/Vol] 1.12 mg/dL High 0.55-1.02 [facility] ([place]) Comment on above: Performed By: #### G FR, A1C, CMP, LIPID, TSH #### [address] [address] Electrolyte Balance 9.0 mEq/L Normal 4.0-15.0 [facility] ([place]) Comment on above: Performed By: #### G FR, A1C, CMP, LIPID, TSH #### [address] [address] Glucose [Mass/Vol] 160 mg/dL High 83-110 [facility] ([place]) Comment on above: Performed By: #### G FR, A1C, CMP, LIPID, TSH #### [address] [address] Potassium [Moles/Vol] 4.0 mmol/L Normal 3.5-5.1 [facility] ([place]) Comment on above: Performed By: #### G FR, A1C, CMP, LIPID, TSH #### [address] [address] Sodium [Moles/Vol] 142 mmol/L Normal 136-145 [facility] ([place]) Comment on above: Performed By: #### G FR, A1C, CMP, LIPID, TSH #### [address] [address] Urea nitrogen [Mass/Vol] 11 mg/dL Normal 7-18 [facility] ([place]) Comment on above: Performed By: #### G FR, A1C, CMP, LIPID, TSH #### [address] [address] .Auto Diffon 07-03-2023 Basophil, Absolute 0.0 10 3/mcL Normal 0.0-0.2 [facility] ([place]) Comment on above: Performed By: #### G FR, A1C, CMP, LIPID, TSH #### [address] [address] Basophils/100 WBC (Bld) 0.6 % Normal 0.0-2.5 [facility] ([place]) Comment on above: Performed By: #### G FR, A1C, CMP, LIPID, TSH #### [address] [address] Eosinophil, Absolute 0.3 10 3/mcL Normal 0.0-0.4 [facility] ([place]) Comment on above: Performed By: #### G FR, A1C, CMP, LIPID, TSH #### [address] [address] Eosinophils/100 WBC (Bld) 5.2 % Normal 0.0-7.0 [facility] ([place]) Comment on above: Performed By: #### G FR, A1C, CMP, LIPID, TSH #### [address] [address] Lymphocyte, Absolute 1.5 10 3/mcL Normal 0.8-3.9 [facility] ([place]) Comment on above: Performed By: #### G FR, A1C, CMP, LIPID, TSH #### [address] [address] Lymphocytes/100 WBC (Bld) 23.3 % Normal 10.0-50.0 [facility] ([place]) Comment on above: Performed By: #### G FR, A1C, CMP, LIPID, TSH #### [address] [address] Monocyte, Absolute 0.7 10 3/mcL Normal 0.2-1.0 [facility] ([place]) Comment on above: Performed By: #### G FR, A1C, CMP, LIPID, TSH #### [address] [address] Monocytes/100 WBC (Bld) 11.3 % Normal 1.7-13.0 [facility] ([place]) Comment on above: Performed By: #### G FR, A1C, CMP, LIPID, TSH #### [address] [address] Neutrophils/100 WBC (Bld) 59.6 % Normal 37.0-80.0 [facility] ([place]) Comment on above: Performed By: #### G FR, A1C, CMP, LIPID, TSH #### [address] [address] .GFRon 07-03-2023 GFR Non- 37 ml/min/1.73sqm Normal [facility] ([place]) Comment on above: Result Comment: GFR Population [...] G FR, A1C, CMP, LIPID, TSH #### [address] [address] GFR 45 ml/min/1.73sqm Normal [facility] ([place]) Comment on above: Result Comment: GFR Population [...] G FR, A1C, CMP, LIPID, TSH #### [address] [address] .NEUABSon 07-03-2023 Neutrophil, Absolute 3.8 10 3/mcL Normal 2.9-6.2 [facility] ([place]) Comment on above: Performed By: #### G FR, A1C, CMP, LIPID, TSH #### [address] [address] A1Con 07-03-2023 HbA1c (Bld) [Mass fraction] 7.3 % High 4.3-6.4 [facility] ([place]) Comment on above: Performed By: #### G FR, A1C, CMP, LIPID, TSH #### [address] [address] CBCon 07-03-2023 Erythrocyte distribution width (RBC) [Ratio] 15.3 % High 11.5-14.5 [facility] ([place]) Comment on above: Performed By: #### G FR, A1C, CMP, LIPID, TSH #### [address] [address] Hematocrit (Bld) [Volume fraction] 33.4 % Low 37.0-47.0 [facility] ([place]) Comment on above: Performed By: #### G FR, A1C, CMP, LIPID, TSH #### [place] [id number] Hgb 11.0 G/dL Low 12.0-16.0 [facility] ([place]) Comment on above: Performed By: #### G FR, A1C, CMP, LIPID, TSH #### [place] [id number] MCH (RBC) [Entitic mass] 31.0 pg Normal 27.0-31.2 [facility] ([place]) Comment on above: Performed By: #### G FR, A1C, CMP, LIPID, TSH #### [place] [id number] MCHC 33.0 G/dL Normal 33.0-37.0 [facility] ([place]) Comment on above: Performed By: #### G FR, A1C, CMP, LIPID, TSH #### [address] [address] MCV (RBC) [Entitic vol] 93.9 fL Normal 80.0-94.0 [facility] ([place]) Comment on above: Performed By: #### G FR, A1C, CMP, LIPID, TSH #### [place] [id number] Platelet 197 10 3/mcL Normal 130-400 [facility] ([place] Comment on above: Performed By: #### G FR, A1C, CMP, LIPID, TSH #### Lali [address] [address] Platelet mean volume (Bld) [Entitic vol] 7.5 fL Normal 7.4-10.4 [facility] ([place]) Comment on above: Performed By: #### G FR, A1C, CMP, LIPID, TSH #### Lali [address] [address] RBC 3.56 10 6/mcL Low 4.20-5.40 [facility] ([place]) Comment on above: Performed By: #### G FR, A1C, CMP, LIPID, TSH #### Lali [address] [address] WBC 6.4 10 3/mcL Normal 4.6-10.8 [facility] ([place]) Comment on above: Performed By: #### G FR, A1C, CMP, LIPID, TSH #### Lali [address] [address] CMPon 07-03-2023 Albumin Level 3.6 G/dL Normal 3.4-4.8 [facility] ([place]) Comment on above: Performed By: #### G FR, A1C, CMP, LIPID, TSH #### Lali [address] [address] Albumin/Globulin [Mass ratio] 1.2 {ratio} Normal 1.1-2.5 [facility] ([place]) Comment on above: Performed By: #### G FR, A1C, CMP, LIPID, TSH #### [address] [address] ALP [Catalytic activity/Vol] 87 U/L Normal 40-135 [facility] ([place] Comment on above: Performed By: #### G FR, A1C, CMP, LIPID, TSH #### Lali [address] [address] ALT [Catalytic activity/Vol] 15 U/L Normal 14-59 [facility] ([place] Comment on above: Performed By: #### G FR, A1C, CMP, LIPID, TSH #### [address] [address] AST [Catalytic activity/Vol] 16 U/L Normal 10-40 [facility] ([place]) Comment on above: Performed By: #### G FR, A1C, CMP, LIPID, TSH #### [address] [address] Bili Total 0.6 mg/dL Normal 0.2-1.0 [facility] ([place] Comment on above: Result Comment: Use of this assay is not recommended for patients undergoing treatment with eltrombopag due to the potential for falsely elevated results. Performed By: #### G FR, A1C, CMP, LIPID, TSH #### [address] [address] BUN/Creatinine Ratio 17 ratio Normal 7-27 [facility] ([place] Comment on above: Performed By: #### G FR, A1C, CMP, LIPID, TSH #### [address] [address] Calcium [Mass/Vol] 8.8 mg/dL Normal 8.4-10.2 [facility] ([place]) Comment on above: Performed By: #### G FR, A1C, CMP, LIPID, TSH #### [address] [address] Chloride [Moles/Vol] 102 mmol/L Normal 98-107 [facility] ([place] Comment on above: Performed By: #### G FR, A1C, CMP, LIPID, TSH #### [address] [address] CO2 [Moles/Vol] 28 mmol/L Normal 23-31 [facility] ([place] Comment on above: Performed By: #### G FR, A1C, CMP, LIPID, TSH #### [address] [address] Creatinine [Mass/Vol] 1.36 mg/dL High 0.55-1.02 [facility] ([place]) Comment on above: Performed By: #### G FR, A1C, CMP, LIPID, TSH #### [address] [address] Electrolyte Balance 8.0 mEq/L Normal 4.0-15.0 [facility] ([place]) Comment on above: Performed By: #### G FR, A1C, CMP, LIPID, TSH #### [address] [address] Globulin 3.1 G/dL Normal [facility] ([place] Comment on above: Performed By: #### G FR, A1C, CMP, LIPID, TSH #### [address] [address] Glucose [Mass/Vol] 187 mg/dL High 83-110 [facility] ([place]) Comment on above: Performed By: #### G FR, A1C, CMP, LIPID, TSH #### [address] [address] Potassium [Moles/Vol] 4.3 mmol/L Normal 3.5-5.1 [facility] ([place]) Comment on above: Performed By: #### G FR, A1C, CMP, LIPID, TSH #### [address] [address] Sodium [Moles/Vol] 138 mmol/L Normal 136-145 [facility] ([place]) Comment on above: Performed By: #### G FR, A1C, CMP, LIPID, TSH #### [address] [address] Total Protein 6.7 G/dL Normal 6.4-8.2 [facility] ([place]) Comment on above: Performed By: #### G FR, A1C, CMP, LIPID, TSH #### [address] [address] Urea nitrogen [Mass/Vol] 23 mg/dL High 7-18 [facility] ([place] Comment on above: Performed By: #### G FR, A1C, CMP, LIPID, TSH #### [address] [address] LABORATORYOrdered By: SYSTEM SYSTEM on 07-03-2023 Basophil, [...] 07-03-2023 Cholesterol [Mass/Vol] 153 mg/dL Normal 0-200 [facility] ([place] Comment on above: Result Comment: Chol esterol Reference Interval: Less than 200 Desirable 200-239 Borderline high risk 240 and above High risk Performed By: #### G FR, A1C, CMP, LIPID, TSH #### [address] [address] Cholesterol in HDL [Mass/Vol] 34 mg/dL Low 40-60 [facility] ([place] Comment on above: Performed By: #### G FR, A1C, CMP, LIPID, TSH #### [address] [address] Cholesterol in LDL [Mass/Vol] 50 mg/dL Normal 0-130 [facility] ([place] Comment on above: Performed By: #### G FR, A1C, CMP, LIPID, TSH #### [address] [address] Triglyceride [Mass/Vol] 347 mg/dL High 0-150 [facility] ([place] Comment on above: Result Comment: Trig lyceride Reference Interval: Less than 150 Normal 150-199 Borderline high risk 200-499 High risk 500 or higher Very high risk Performed By: #### G FR, A1C, CMP, LIPID, TSH #### [address] [address] TSHon 07-03-2023 TSH Qn 2.24 m[IU]/L Normal 0.36-3.74 [facility] ([place] Comment on above: Performed By: #### G FR, A1C, CMP, LIPID, TSH #### [facility] [address], [place] [address] LABORATORYOrdered By: SYSTEM SYSTEM on 03-29-2023 Albumin [...] 150 mg/dL AO ADM SS LABORATORYOrdered By: [employer] on 01-05-2023 Albumin BCP dye [Mass/Vol] [...] 27 ratio AO ADM SS LABORATORYOrdered By: Laeh Zambrano on 01-05-2023 Basophil, Absolute 0.0 103/mcL [...] 12-24-2020 Albumin [Mass/Vol] 3.5 g/dL Normal 3.2-5.0 [facility] Comment on above: Performed By: #### L 500.00933, L500.43268 #### [facility] [address] [place], [place] [address] Albumin/Globulin [Mass ratio] 1.2 {ratio} Normal 0.8-2.0 [facility] Comment on above: Performed By: #### L 500.43218, L500.22364 #### [facility] [address] [place] [address] ALK PHOS 77 U/L Normal 45-117 [facility] Comment on above: Performed By: #### L 500.79823, L500.50469 #### [facility] [address] [place] [address] ALT [Catalytic activity/Vol] 16 U/L Normal 13-61 [facility] Comment on above: Result Comment: RESU LTS MAY BE FALSELY DEPRESSED AFTER THE ADMINISTRATION OF SULFASALAZINE AND/OR SULFAPYRIDINE. Performed By: #### L 500.24616, L500.57573 #### [facility] [address] [place] [address] Anion gap [Moles/Vol] 3 mmol/L Low 5-[address] [facility] Comment on above: Performed By: #### L 500.37009, L500.69734 #### [facility] [address] [place], [place] [address] AST [Catalytic activity/Vol] 28 U/L Normal 8-34 [facility] Comment on above: Result Comment: RESU LTS MAY BE FALSELY DEPRESSED AFTER THE ADMINISTRATION OF SULFASALAZINE AND/OR SULFAPYRIDINE. Performed By: #### L 500.70201, L500.40841 #### [facility] [place] [id number] BILI TOTAL 0.50 MG/DL Normal 0.2-1.0 [facility] Comment on above: Performed By: #### L 500.49591, L500.10527 #### [facility] [address] [place] [address] Calcium [Mass/Vol] 9.8 mg/dL Normal 8.5-10.5 [facility] Comment on above: Result Comment: NOTE NEW NORMAL RANGE DUE TO REAGENT CHANGE Performed By: #### L 500.70837, L500.94051 #### [facility] [address] [place] [id number] Chloride [Moles/Vol] 104 mmol/L Normal 98-107 [facility] Comment on above: Performed By: #### L 500.82277, L500.61131 #### [facility] [address] [place] [address] CO2 [Moles/Vol] 31.0 mmol/L Normal 21-32 [facility] Comment on above: Performed By: #### L 500.09647, L500.94242 #### [facility] [place] [address] Creatinine [Mass/Vol] 1.00 mg/dL High 0.510-0.950 [facility] Comment on above: Result Comment: Mireya ents receiving either N-Acetylcysteine (NAC) or Metamizole prior to venipuncture, may have falsely depressed results. Performed By: #### L 500.77850, L500.42955 #### [facility] [address] [place] [address] Globulin (S) [Mass/Vol] 2.8 g/dL Normal 2.2-4.2 [facility] Comment on above: Performed By: #### L 500.31556, L500.93208 #### [facility] [place] [address] Glucose [Mass/Vol] 132 mg/dL High 70-100 [facility] Comment on above: Result Comment: 70-1 00- Normal Fasting; 100-125 Impaired Fasting; greater than 126 on more than one result- Diabetes. ADA guidelines. Results may be falsely elevated after the administration of Sulfapyridine. Results may be falsely depressed after the administration of Sulfasalazine. Performed By: #### L 500.11929, L500.12421 #### [facility] [address] [place] [address] Potassium [Moles/Vol] 3.9 mmol/L Normal 3.5-5.[address] [facility] Comment on above: Result Comment: Slig ht Hemolysis, Result may be affected. Performed By: #### L 500.26000, L500.00932 #### [facility] [address] [place] [address] Protein [Mass/Vol] 6.3 g/dL Normal 6.0-8.5 [facility] Comment on above: Performed By: #### L 500.09584, L500.26198 #### [facility] [address] [place] [address] Sodium [Moles/Vol] 138 mmol/L Normal 136-145 [facility] Comment on above: Performed By: #### L 500.95280, L500.97113 #### [facility] [address] [place] [address] Urea nitrogen [Mass/Vol] 20 mg/dL Normal 7-26 [facility] Comment on above: Performed By: #### L 500.18911, L500.37193 #### [facility] [address] [place] [address] 13544 Urea nitrogen/Creatinine [Mass ratio] 20 mg/mg Normal 15-24 [facility] Comment on above: Performed By: #### L 500.34119, L500.66613 #### [facility] [address] [place] [address] 17767 GFR ESTon 12-24-2020 IF AMER Greater than 60 Normal [facility] Comment on above: Performed By: #### L 500.92889, L500.86839 #### [facility] [address] [place] [address]80[address] IF non-AFR AMER 54 Normal [facility] Comment on above: Performed By: #### L 500.93772, L500.38569 #### [facility] [address] [place] [address] CBCon 12-22-2020 Erythrocyte distribution width (RBC) [Ratio] 17.6 % High 11-14.5 [facility] Comment on above: Performed By: #### L 500.96310, L500.26283 #### [facility] [address] [place] [address] Hematocrit (Bld) [Volume fraction] 31.3 % Low 35.0-47.0 [facility] Comment on above: Performed By: #### L 500.46887, L500.32433 #### [facility] [address] [place] [address] Hemoglobin (Bld) [Mass/Vol] 9.5 g/dL Low 11.5-15.5 [facility] Comment on above: Performed By: #### L 500.47544, L500.48210 #### [facility] [address] [place] [address] MCHC (RBC) [Mass/Vol] 30.4 g/dL Low 32.0-36.[address] [facility] Comment on above: Performed By: #### L 500.50595, L500.53143 #### [facility] [address] [place], [place] [address] MCV (RBC) [Entitic vol] 95.7 fL Normal 80.0-99.0 [facility] Comment on above: Performed By: #### L 500.66318, L500.51950 #### [facility] [address] [place] [address] 65202 Nucleated RBC/100 WBC (Bld) [Ratio] 0.0 % Normal Less than 1 [facility] Comment on above: Performed By: #### L 500.58671, L500.55149 #### [facility] [address] [place], [place] [address] Platelet mean volume (Bld) [Entitic vol] 10.3 fL Normal 9.4-12.4 [facility] Comment on above: Performed By: #### L 500.86857, L500.73060 #### [facility] [address] [place], [place] [address] PLT 148 K/CU MM Low 150-450 [facility] Comment on above: Performed By: #### L 500.25621, L500.46255 #### [facility] [address] [place], [place] [address] RBC 3.27 M/CU MM Low 3.90-5.30 [facility] Comment on above: Performed By: #### L 500.70326, L500.34915 #### [facility] [address] [place] [address]233 WBC 5.5 K/CUMM Normal 4.5-11.0 [facility] Comment on above: Performed By: #### L 500.00285, L500.63969 #### [facility] [address] [place] [address] 000[address] PBNP TESTon 12-22-2020 Natriuretic peptide B (Bld) [Mass/Vol] 696 pg/mL High 0-450 [facility] Comment on above: Result Comment: NT-p [...] NEW NORMAL RANGE Performed By: #### L 500.82173 #### [facility] [address] [place] [address] CBCon 12-18-2020 Erythrocyte distribution width (RBC) [Ratio] 18.0 % High 11-14.5 [facility] Comment on above: Performed By: #### L 200.93343 #### [facility] [address] [place] [address] Hematocrit (Bld) [Volume fraction] 31.7 % Low 35.0-47.0 [facility] Comment on above: Performed By: #### L 200.09029 #### [facility] [address] [place] [address] Hemoglobin (Bld) [Mass/Vol] 9.5 g/dL Low 11.5-15.5 [facility] Comment on above: Performed By: #### L 200.41301 #### [facility] [address] [place] [address] MCHC (RBC) [Mass/Vol] 30.0 g/dL Low 32.0-36.[address] [facility] Comment on above: Performed By: #### L 200.73040 #### [facility] [address] [place] [address] MCV (RBC) [Entitic vol] 98.1 fL Normal 80.0-99.0 [facility] Comment on above: Performed By: #### L 200.09592 #### [facility] [address] [place] [address] Nucleated RBC/100 WBC (Bld) [Ratio] 0.0 % Normal Less than 1 [facility] Comment on above: Performed By: #### L 200.60502 #### [facility] [place] [address] Platelet mean volume (Bld) [Entitic vol] 10.4 fL Normal 9.4-12.4 [facility] Comment on above: Performed By: #### L 200.58301 #### [facility] [address] [place] [address] PLT 211 K/CU MM Normal 150-450 [facility] Comment on above: Performed By: #### L 200.45467 #### [facility] [address] [place] [address] 49898 RBC 3.23 M/CU MM Low 3.90-5.30 [facility] Comment on above: Performed By: #### L 200.80959 #### [facility] [address] [place], [place] [address] WBC 6.5 K/CUMM Normal 4.5-11.0 [facility] Comment on above: Performed By: #### L 200.58601 #### [facility] [address] [place] [address]27 PBNP TESTon 12-18-2020 Natriuretic peptide B (Bld) [Mass/Vol] 1278 pg/mL High 0-450 [facility] Comment on above: Result Comment: NT-p [...] NEW NORMAL RANGE Performed By: #### L 500.88744, L500.91394 #### [facility] [place] [address] BMPon 12-17-2020 Anion gap [Moles/Vol] 7 mmol/L Normal 5-[address] [facility] Comment on above: Performed By: #### L 500.04490, L500.98617 #### [facility] [place] [address] Calcium [Mass/Vol] 9.5 mg/dL Normal 8.5-10.5 [facility] Comment on above: Result Comment: NOTE NEW NORMAL RANGE DUE TO REAGENT CHANGE Performed By: #### L 500.02373, L500.84983 #### [facility] [address] [place] [address] Chloride [Moles/Vol] 106 mmol/L Normal 98-107 [facility] Comment on above: Performed By: #### L 500.78146, L500.92756 #### [facility] [address] [place] [address] CO2 [Moles/Vol] 28.0 mmol/L Normal 21-32 [facility] Comment on above: Performed By: #### L 500.71223, L500.71596 #### [facility] [address] [place] [address] Creatinine [Mass/Vol] 1.01 mg/dL High 0.510-0.950 [facility] Comment on above: Result Comment: Mireya ents receiving either N-Acetylcysteine (NAC) or Metamizole prior to venipuncture, may have falsely depressed results. Performed By: #### L 500.45842, L500.17975 #### [facility] [place] [address] Glucose [Mass/Vol] 128 mg/dL High 70-100 [facility] Comment on above: Result Comment: 70-1 00- Normal Fasting; 100-125 Impaired Fasting; greater than 126 on more than one result- Diabetes. ADA guidelines. Results may be falsely elevated after the administration of Sulfapyridine. Results may be falsely depressed after the administration of Sulfasalazine. Performed By: #### L 500.41649, L500.80926 #### [facility] [address] [place] [address] Potassium [Moles/Vol] 4.0 mmol/L Normal 3.5-5.[address] [facility] Comment on above: Performed By: #### L 500.99328, L500.12187 #### [facility] [address] [place] [address]686 Sodium [Moles/Vol] 141 mmol/L Normal 136-145 [facility] Comment on above: Performed By: #### L 500.75199, L500.64152 #### [facility] [address] [place] [address] Urea nitrogen [Mass/Vol] 21 mg/dL Normal 7-26 [facility] Comment on above: Performed By: #### L 500.00138, L500.41707 #### [facility] [address] [place], [place] [address] Urea nitrogen/Creatinine [Mass ratio] 21 mg/mg Normal 15-24 [facility] Comment on above: Performed By: #### L 500.78527, L500.77265 #### [facility] [address] [place] [address] GFR ESTon 12-17-2020 IF AMER Greater than 60 Normal [facility] Comment on above: Performed By: #### L 500.44772, L500.35184 #### [facility] [address] [place] [address]37 IF non-AFR AMER 53 Normal [facility] Comment on above: Performed By: #### L 500.47281, L500.60362 #### [facility] [address] [place] [address] 30947 BMPon 12-14-2020 Anion gap [Moles/Vol] 3 mmol/L Low 5-[address] [facility] Comment on above: Performed By: #### L 500.10176, L500.12743 #### [facility] [place] [address] Calcium [Mass/Vol] 9.7 mg/dL Normal 8.5-10.5 [facility] Comment on above: Result Comment: NOTE NEW NORMAL RANGE DUE TO REAGENT CHANGE Performed By: #### L 500.84208, L500.73701 #### [facility] [address] [place] [address] Chloride [Moles/Vol] 109 mmol/L High 98-107 [facility] Comment on above: Performed By: #### L 500.27564, L500.57481 #### [facility] [address] [place] [address] CO2 [Moles/Vol] 30.0 mmol/L Normal 21-32 [facility] Comment on above: Performed By: #### L 500.00717, L500.79064 #### [facility] [address] [place] [address] Creatinine [Mass/Vol] 1.14 mg/dL High 0.510-0.950 [facility] Comment on above: Result Comment: Mireya ents receiving either N-Acetylcysteine (NAC) or Metamizole prior to venipuncture, may have falsely depressed results. Performed By: #### L 500.46700, L500.15446 #### [facility] [address] [place], [place] [address] Glucose [Mass/Vol] 110 mg/dL High 70-100 [facility] Comment on above: Result Comment: 70-1 00- Normal Fasting; 100-125 Impaired Fasting; greater than 126 on more than one result- Diabetes. ADA guidelines. Results may be falsely elevated after the administration of Sulfapyridine. Results may be falsely depressed after the administration of Sulfasalazine. Performed By: #### L 500.34759, L500.54091 #### [facility] [address] [place] [address] Potassium [Moles/Vol] 4.9 mmol/L Normal 3.5-5.[address] [facility] Comment on above: Performed By: #### L 500.74760, L500.45579 #### [facility] [place] [address] Sodium [Moles/Vol] 142 mmol/L Normal 136-145 [facility] Comment on above: Performed By: #### L 500.63307, L500.11016 #### [facility] [address] [place] [address] 99225 Urea nitrogen [Mass/Vol] 32 mg/dL High 7-26 [facility] Comment on above: Performed By: #### L 500.51089, L500.75950 #### [facility] [address] [place] [address] Urea nitrogen/Creatinine [Mass ratio] 28 mg/mg High 15-24 [facility] Comment on above: Performed By: #### L 500.64234, L500.10956 #### [facility] [address] [place] [address] 78133 CBCon 12-14-2020 Erythrocyte distribution width (RBC) [Ratio] 17.7 % High 11-14.5 [facility] Comment on above: Performed By: #### L 200.11833 #### [facility] [address] [place] [address]245 Hematocrit (Bld) [Volume fraction] 31.8 % Low 35.0-47.0 [facility] Comment on above: Performed By: #### L 200.50540 #### [facility] [address] [place] [address] 24140 Hemoglobin (Bld) [Mass/Vol] 9.6 g/dL Low 11.5-15.5 [facility] Comment on above: Performed By: #### L 200.69270 #### [facility] [address] [place] [address] 88410 MCHC (RBC) [Mass/Vol] 30.2 g/dL Low 32.0-36.[address] [facility] Comment on above: Performed By: #### L 200.61091 #### [facility] [address] [place] [address] MCV (RBC) [Entitic vol] 97.8 fL Normal 80.0-99.0 [facility] Comment on above: Performed By: #### L 200.71861 #### [facility] [address] [place] [address] Nucleated RBC/100 WBC (Bld) [Ratio] 0.0 % Normal Less than 1 [facility] Comment on above: Performed By: #### L 200.78389 #### [facility] [address] [place] [address] Platelet mean volume (Bld) [Entitic vol] 10.1 fL Normal 9.4-12.4 [facility] Comment on above: Performed By: #### L 200.02371 #### [facility] [address] [place], [place] [address] PLT 248 K/CU MM Normal 150-450 [facility] Comment on above: Performed By: #### L 200.70982 #### [facility] [address] [place] [address] 78815 RBC 3.25 M/CU MM Low 3.90-5.30 [facility] Comment on above: Performed By: #### L 200.75305 #### [facility] [address] [place] [address] 01060 WBC 5.9 K/CUMM Normal 4.5-11.0 [facility] Comment on above: Performed By: #### L 200.86237 #### [facility] [place] [address] GFR ESTon 12-14-2020 IF AMER 56 Normal [facility] Comment on above: Performed By: #### L 500.92857, L500.32851 #### [facility] [address] [place] [address] 50818 IF non-AFR AMER 46 Normal [facility] Comment on above: Performed By: #### L 500.95094, L500.21054 #### [facility] [address] [place] [address] 74274 IRON PANELon 12-14-2020 Iron [Mass/Vol] 51 ug/dL Normal 50-170 [facility] Comment on above: Result Comment: Mireya ents treated with metal-binding drugs (e.g.deferoxamine) may have depressed iron values, as chelated iron may not properly react in the Siemens iron assay. Performed By: #### L 500.77018, L500.51988 #### [facility] [address] [place] [address] 10587 IRON SAT 20 % Low 22-44 [facility] Comment on above: Performed By: #### L 500.78597, L500.93025 #### [facility] [address] [place] [address] 50845 TIBC 260 UG/DL Normal 221-481 [facility] Comment on above: Performed By: #### L 500.92315, L500.99061 #### [facility] [address] [place] [address] 05744 BMPon 12-03-2020 Anion gap [Moles/Vol] 9 mmol/L Normal 5-[address] [facility] Comment on above: Performed By: #### L 500.56772, L500.64719 #### [facility] [address] [place] [address] Performed By: #### L 500.22031, L500.09531 #### [facility] [address] [place] [address] Calcium [Mass/Vol] 9.3 mg/dL Normal 8.5-10.5 [facility] Comment on above: Result Comment: NOTE NEW NORMAL RANGE DUE TO REAGENT CHANGE Performed By: #### L 500.75334, L500.27016 #### [facility] [address] [place] [address] Performed By: #### L 500.75505, L500.12316 #### [facility] [address] [place] [address] Chloride [Moles/Vol] 104 mmol/L Normal 98-107 [facility] Comment on above: Performed By: #### L 500.39412, L500.88073 #### [facility] [address] [place] [address] Performed By: #### L 500.29421, L500.15193 #### [facility] [address] [place] [address] 12462 CO2 [Moles/Vol] 27.0 mmol/L Normal 21-32 [facility] Comment on above: Performed By: #### L 500.54190, L500.37971 #### [facility] [address] [place] [address] Performed By: #### L 500.84281, L500.23008 #### [facility] [address] [place], [place] [address] Creatinine [Mass/Vol] 1.13 mg/dL High 0.510-0.950 [facility] Comment on above: Result Comment: Mireya ents receiving either N-Acetylcysteine (NAC) or Metamizole prior to venipuncture, may have falsely depressed results. Performed By: #### L 500.01558, L500.89257 #### [facility] [address] [place] [address] Performed By: #### L 500.15749, L500.17825 #### [facility] [address] [place], [place] [address] Glucose [Mass/Vol] 155 mg/dL High 70-100 [facility] Comment on above: Result Comment: 70-1 00- Normal Fasting; 100-125 Impaired Fasting; greater than 126 on more than one result- Diabetes. ADA guidelines. Results may be falsely elevated after the administration of Sulfapyridine. Results may be falsely depressed after the administration of Sulfasalazine. Performed By: #### L 500.86857, L500.84774 #### [facility] [address] [place] [address] Performed By: #### L 500.72731, L500.48263 #### [facility] [address] [place] [address] Potassium [Moles/Vol] 3.9 mmol/L Normal 3.5-5.[address] [facility] Comment on above: Performed By: #### L 500.03203, L500.32656 #### [facility] [address] [place] [address] Performed By: #### L 500.25634, L500.76285 #### [facility] [address] [place] [address] 19686 Sodium [Moles/Vol] 140 mmol/L Normal 136-145 [facility] Comment on above: Performed By: #### L 500.31779, L500.72146 #### [facility] [address] [place], [place] [id number] Performed By: #### L 500.84642, L500.05643 #### [facility] [address] [place] [id number] Urea nitrogen [Mass/Vol] 15 mg/dL Normal 7-26 [facility] Comment on above: Performed By: #### L 500.48064, L500.72694 #### [facility] [address] [place] [id number] Performed By: #### L 500.84298, L500.24437 #### [facility] [address] [place] [address] Urea nitrogen/Creatinine [Mass ratio] 13 mg/mg Low 15-24 [facility] Comment on above: Performed By: #### L 500.10813, L500.41218 #### [facility] [address] [place] [address] Performed By: #### L 500.14202, L500.54966 #### [facility] [address] [place] [address] [facility]Con 12-03-2020 Erythrocyte distribution width (RBC) [Ratio] 18.1 % High 11-14.5 [facility] Comment on above: Performed By: #### L 200.40052 #### [facility] [address] [place] [address] Performed By: #### L 500.93612, L500.28576 #### [facility] [address] [place], [place] [id number] Hematocrit (Bld) [Volume fraction] 33.7 % Low 35.0-47.0 [facility] Comment on above: Performed By: #### L 200.31043 #### [facility] [address] [place] [address] Performed By: #### L 500.90388, L500.76915 #### [facility] [address] [place], [place] [id number] Hemoglobin (Bld) [Mass/Vol] 10.1 g/dL Low 11.5-15.5 [facility] Comment on above: Performed By: #### L 200.59264 #### [facility] [address] [place] [address]# [phone] Performed By: #### L 500.76363, L500.57544 #### [facility] [address] [place] [address]# [phone] MCHC (RBC) [Mass/Vol] 30.0 g/dL Low 32.0-36.[address] [facility] Comment on above: Performed By: #### L 200.00634 #### [facility] [address] [place] [address]# [phone] Performed By: #### L 500.99414, L500.82753 #### [facility] [address] [place] [address]# [phone] MCV (RBC) [Entitic vol] 97.4 fL Normal 80.0-99.0 [facility] Comment on above: Performed By: #### L 200.43888 #### [facility] [address] [place] [address]# [phone] Performed By: #### L 500.86231, L500.80414 #### [facility] [address] [place] [address]# [phone] Nucleated RBC/100 WBC (Bld) [Ratio] 0.0 % Normal Less than 1 [facility] Comment on above: Performed By: #### L 200.22395 #### [facility] [address] [place] [address] Performed By: #### L 500.61903, L500.15667 #### [facility] [address] [place] [address] Platelet mean volume (Bld) [Entitic vol] 9.9 fL Normal 9.4-12.4 [facility] Comment on above: Performed By: #### L 200.78553 #### [facility] [place] [address] Performed By: #### L 500.26215, L500.65753 #### [facility] [address] [place] [address] PLT 201 K/CU MM Normal 150-450 [facility] Comment on above: Performed By: #### L 200.96418 #### [facility] [address] [place] [address] Performed By: #### L 500.15609, L500.36678 #### [facility] [address] [place] [address] 28094 RBC 3.46 M/CU MM Low 3.90-5.30 [facility] Comment on above: Performed By: #### L 200.55239 #### [facility] [address] [place] [address] Performed By: #### L 500.86664, L500.61056 #### [facility] [address] [place] [address] WBC 6.1 K/CUMM Normal 4.5-11.0 [facility] Comment on above: Performed By: #### L 200.81977 #### [facility] [address] [place] [address] Performed By: #### L 500.62658, L500.11260 #### [facility] [address] [place] [address] GFR ESTon 12-03-2020 IF AMER 56 Normal [facility] Comment on above: Performed By: #### L 500.49573, L500.97212 #### [facility] [address] [place] [address] Performed By: #### L 500.78959, L500.97766 #### [facility] [address] [place] [address] IF non-AFR AMER 47 Normal [facility] Comment on above: Performed By: #### L 500.76549, L500.61429 #### [facility] [address] [place] [address] Performed By: #### L 500.77536, L500.16416 #### [facility] [address] [place] [address] 249[address] PBNP TESTon 12-03-2020 Natriuretic peptide B (Bld) [Mass/Vol] 1783 pg/mL High 0-450 [facility] Comment on above: Result Comment: NT-p [...] NEW NORMAL RANGE Performed By: #### L 500.02328 #### [facility] [address] [place] [address] Vital Signs Date Time Vital Sign Value Performing Clinician Facility 05-01-2025 11:30-0400 Body weight 67.8 kg FITZ GA MD [facility] 01-30-2025 11:30-0400 Body weight 68 kg FITZ GA MD [facility] 01-02-2025 11:55-0400 Body weight 69 kg FITZ GA MD [facility] 06-06-2022 11:20-0400 Body temperature 98.42 [degF] DR HARSHAD TEIXEIRA MD [facility] 06-06-2022 11:20-0400 Diastolic blood pressure 60 mm[Hg] DR HARSHAD TEIXEIRA MD [facility] 06-06-2022 11:20-0400 Heart rate 82 /min DR HARSHAD TEIXEIRA MD [facility] 06-06-2022 11:20-0400 Respiratory rate 14 /min DR HARSHAD TEIXEIRA MD [facility] 06-06-2022 11:20-0400 Systolic blood pressure 123 mm[Hg] DR HARSHAD TEIXEIRA MD [facility] 06-05-2022 06:54-0400 Diastolic blood pressure 61 mm[Hg] RODRI REICHFIELD DO [facility] 06-05-2022 06:54-0400 Heart rate 63 /min RODRI REICHFIELD DO [facility] 06-05-2022 06:54-0400 Respiratory rate 18 /min RODRI REICHFIELD DO [facility] 06-05-2022 06:54-0400 Systolic blood pressure 133 mm[Hg] RODRI REICHFIELD DO [facility] 06-05-2022 04:20-0400 Body temperature 97.7 [degF] RODRI REICHFIELD DO [facility] 06-05-2022 04:20-0400 Diastolic blood pressure 89 mm[Hg] RODRI REICHFIELD DO [facility] 06-05-2022 04:20-0400 Heart rate 65 /min RODRI REICHFIELD DO [facility] 06-05-2022 04:20-0400 Respiratory rate 18 /min [facility] DO [facility] 06-05-2022 04:20-0400 Systolic blood pressure 178 mm[Hg] RODRI [facility] DO [facility] 12-08-2021 12:03-0500 Diastolic blood pressure 69 mm[Hg] DR OC COULTER MD [facility] 12-08-2021 12:03-0500 Heart rate 60 /min DR OC COULTER MD [facility] 12-08-2021 12:03-0500 Respiratory rate 16 /min DR OC COULTER MD [facility] 12-08-2021 12:03-0500 Systolic blood pressure 180 mm[Hg] DR OC COULTER MD [facility] 12-08-2021 10:47-0500 Body height 162.[address] OC COULTER MD [facility] 12-08-2021 10:47-0500 Body temperature 98.42 [degF] DR OC COULTER MD [facility] 12-08-2021 10:47-0500 Body weight 69.[address] OC COULTER MD [facility] 12-08-2021 10:47-0500 Diastolic blood pressure 83 mm[Hg] DR OC COULTER MD [facility] 12-08-2021 10:47-0500 Heart rate 76 /min DR OC COULTER MD [facility] 12-08-2021 10:47-0500 Respiratory rate 24 /min DR OC COULTER MD [facility] 12-08-2021 10:47-0500 Systolic blood pressure 177 mm[Hg] DR OC COULTER MD [facility] 08-27-2021 09:49-0500 Diastolic blood pressure 66 mm[Hg] DR DAQUAN MERCADO MD [facility] 08-27-2021 09:49-0500 Heart rate 66 /min DR DAQUAN MERCADO MD [facility] 08-27-2021 09:49-0500 Respiratory rate 20 /min DR DAQUAN MERCADO MD [facility] 08-27-2021 09:49-0500 Systolic blood pressure 172 mm[Hg] DR DAQUAN MERCADO MD [facility] 08-27-2021 09:34-0500 Diastolic Blood Pressure NBP [address] DAQUAN MERCADO MD [facility] 08-27-2021 09:34-0500 Heart rate 66 /min DR DAQUAN MERCADO MD [facility] 08-27-2021 09:34-0500 Respiratory rate 16 /min DR DAQUAN MERCADO MD [facility] 08-27-2021 09:34-0500 Systolic Blood Pressure NBP [address] DAQUAN MERCADO MD [facility] 08-27-2021 09:15-0500 Body height [address] DAQUAN MERCADO MD [facility] 08-27-2021 09:15-0500 Body weight [address] DAQUAN MERCADO MD [facility] 08-27-2021 09:15-0500 Body weight 28.58 kg/m2 DR DAQUAN MERCADO MD [facility] 08-27-2021 09:15-0500 diastolic 97 mm[Hg] DR DAQUAN MERCADO MD [facility] 08-27-2021 09:15-0500 Heart rate 64 /min DR DAQUAN MERCADO MD [facility] 08-27-2021 09:15-0500 Respiratory rate 19 /min DR DAQUAN MERCADO MD [facility] 08-27-2021 09:15-0500 systolic 164 mm[Hg] DR DAQUAN MERCADO MD [facility] Encounters Encounter Date Encounter Type Care Provider Facility Start: 08-19-2025 ambulatory Farnaz Gudla OLS Facili ty:[facility] Start: 08-11-2025 ambulatory Farnaz Gudla OLS Facili ty:[facility] Start: 06-23-2025 ambulatory Farnaz Gudla OLS Facili ty:[facility] Start: 05-26-2025 End: 05-30-2025 ambulatory FITZ GA MD Facility[facility] Start: 05-26-2025 End: 05-30-2025 Outreach Lab FITZ GA MD [facility] Start: 05-06-2025 End: 05-10-2025 ambulatory FITZ GA MD Facility[facility] Start: 05-06-2025 End: 05-10-2025 Outreach Lab CAREN GASTON WEB PRODUCTION DESIGNER-[employer] SALES ASSOCIATE [facility] Start: 05-01-2025 End: 08-01-2025 ambulatory FITZ GA MD Facility:[facility] Start: 05-01-2025 End: 08-01-2025 OTHER THERAPY FITZ GA MD [facility] Start: 04-18-2025 End: 04-18-2025 ambulatory GELA NATARAJAN MD Facility:[facility] Start: 04-18-2025 End: 04-18-2025 Patient encounter procedure GELA NATARAJAN MD [facility] Start: 04-14-2025 End: 04-14-[address] ROMULO BARNARD MD Facility:[facility] Start: 04-14-2025 End: 04-14-[address] ROMULO BARNARD MD [facility] Start: 03-28-2025 End: 03-28-2025 ambulatory FITZ GA MD Facility:[facility] Start: 03-28-2025 End: 03-28-2025 Patient encounter procedure FITZ GA MD [facility] Start: 03-20-2025 End: 03-20-2025 ambulatory FITZ GA MD Facility:[facility] Start: 03-06-2025 End: 03-06-2025 ambulatory FITZ GA MD Facility:[facility] Start: 03-06-2025 End: 03-06-2025 Patient encounter procedure FITZ GA MD [facility] Start: 02-20-2025 End: 02-24-2025 ambulatory FITZ GA MD Facility:[facility] Start: 02-20-2025 End: 02-24-2025 Outreach Lab FITZ GA MD [facility] Start: 02-18-2025 End: 02-18-2025 ambulatory FITZ GA MD Facility:[facility] Start: 02-18-2025 End: 02-18-2025 Patient encounter procedure FITZ GA MD [facility] Start: 02-10-2025 End: 02-14-2025 ambulatory FITZ GA MD Facility:[facility] Start: 02-10-2025 End: 02-14-2025 Outreach Lab FITZ GA MD [facility] Start: 10-21-2024 End: 10-25-2024 ambulatory FITZ GA MD Facility:[facility] Start: 10-21-2024 End: 10-25-2024 Outreach Lab FITZ GA MD [facility] Start: 07-10-2024 End: 07-14-2024 Outreach Lab FITZ GA MD [facility] Start: 04-03-2024 End: 04-07-2024 ambulatory FITZ GA MD Facility:[facility] Start: 04-03-2024 End: 04-07-2024 Encounter for general adult medical examination without abnormal findings FITZ GA MD Facility:[facility] Start: 04-03-2024 End: 04-07-2024 Outreach Lab FITZ GA MD [facility] Start: 01-10-2024 End: 01-14-2024 ambulatory FITZ GA MD Facility:[facility] Start: 01-10-2024 End: 01-14-2024 Outreach Lab FITZ GA MD [facility] Start: 09-18-2023 End: 09-22-2023 ambulatory FITZ GA MD Facility:[facility] Start: 09-18-2023 End: 09-22-2023 Outreach Lab FITZ GA MD [facility] Start: 09-11-2023 End: 09-11-2023 ambulatory GELA NATARAJAN MD Facility:[facility] Start: 07-03-2023 End: 07-07-2023 ambulatory FITZ GA MD Facility:[facility] Start: 07-03-2023 End: 07-07-2023 Outreach Lab FITZ GA MD [facility] Start: 03-29-2023 End: 04-02-2023 Outreach Lab FITZ GA MD [facility] Start: 02-01-2023 End: 02-01-[address] DAQUAN MERCADO MD [facility] Start: 01-05-2023 End: 01-05-2023 Patient encounter procedure FITZ GA MD [facility] Start: 11-24-2022 End: 11-24-2022 Patient encounter procedure GELA NATARAJAN MD [facility] Start: 09-21-2022 End: 09-25-2022 Outreach Lab FITZ GA MD [facility] Start: 08-02-2022 End: 08-02-[address] DAQUAN MERCADO MD [facility] Start: 07-15-2022 End: 09-07-[address] ALFONSO RECINOS [facility] Start: 06-22-2022 End: 06-26-2022 Outreach Lab FITZ GA MD [facility] Start: 06-06-2022 End: 06-06-2022 Emergency department patient visit DR HARSHAD TEIXEIRA MD [facility] Start: 06-05-2022 End: 06-05-2022 Emergency department patient visit RODRI SY DO [facility] Start: 06-03-2022 End: 06-03-[address] DAQUAN MERCADO MD [facility] Start: 04-29-2022 End: 04-29-2022 Patient encounter procedure JABIER BLAKE WEB PRODUCTION DESIGNER-SANITARY ENGINEER [facility] Start: 04-21-2022 End: 04-21-[address] ROMULO BARNARD MD [facility] Start: 03-23-2022 End: 03-27-2022 Outreach Lab FITZ GA MD [facility] Start: 03-03-2022 End: 03-03-[address] DAQUAN MERCADO MD [facility] Start: 12-21-2021 End: 12-21-2021 Patient encounter procedure FITZ GA MD [facility] Start: 12-08-2021 End: 12-08-2021 Emergency department patient visit DR OC COULTER MD [facility] Start: 10-26-2021 End: 10-26-[address] DAQUAN MERCADO MD [facility] Start: 09-16-2021 End: 09-16-2021 Patient encounter procedure FITZ GA MD [facility] Start: 08-27-2021 End: 08-27-[address] DAQUAN MERCADO MD [facility] Procedures Date Procedure Procedure Detail [...] DR DAQUAN CROUCH MD Comment on above: [facility] Dr. Jose L powell Start: 06-27-2007 [...] Immunization Date Immunization Notes Care Provider Fa [facility] 03-15-2022 COVID-19, mRNA, LNP- S, PF, 100 mcg or 50 mcg dose; Translations: [Moderna COVID-19 Vaccine] FITZ GA MD [facility] 09-14-2021 COVID-19, mRNA, LNP- S, PF, 100 mcg/ 0.5 mL dose; Translations: [Moderna COVID-19 Vaccine] FITZ GA MD [facility] 12-03-2020 SARS-CoV-2 (COVID-19 ) mRNA-[address] DAQUAN MERCADO MD [facility] 06-26-2019 influenza virus vaccine, unspecified formulation DR DAQUAN MERCADO MD [facility] 04-08-2019 tetanus and diphther ia toxoids, adsorbed, preservative free, for adult use (2 Lf of tetanus toxoid and 2 Lf of diphtheria toxoid); Translations: [Tenivac] DR DAQUAN MERCADO MD [facility] Payers Date Payer Category Payer Self-pay 2023 Unknown [id number] 2022 Private Health Insurance [id number] 2022 Unknown [id number] 1942 Unknown [id number] 2.16.8 40.1.499209.3.579.2.627 1942 Unknown [id number] 2.16.8 40.1.325800.3.579.2.627 1942 Unknown [id number] 2.16.8 40.1.492151.3.579.2.627 1942 Unknown [id number] 2.16.8 40.1.257226.3.579.2.62 1942 Unknown [id number] 2.16.8 40.1.192376.3.579.2.627 1942 Unknown [id number] 2.16. 840.1.717306.3.579.2.62 1942 Unknown [id number] 2.16. 840.1.261306.3.579.2.62 1942 Unknown [id number] 2.16. 840.1.426471.3.579.2. 1942 Unknown [id number] 2.16. 840.1.873876.3.579.2.62 1942 Unknown [id number] 2.16. 840.1.382224.3.579.2. 1942 Unknown [id number] 2.16. 840.1.068436.3.579.2. 1942 Unknown [id number] 2.16. 840.1.215343.3.579.2.62 1942 Unknown [id number] 2.16.8 40.1.320046.3.579.2.62 1942 Unknown [id number] 2.16.8 40.1.831911.3.579.2.62 1942 Unknown [id number] 2.16.8 40.1.574933.3.579.2.62 1942 Unknown [id number] 2.16.8 40.1.360844.3.579.2.62 1942 Unknown [id number] 2.16.8 40.1.882434.3.579.2.627 Unknown [id number] 2.16.8 40.1.104278.3.579.2.462 Unknown [id number] 2.16.8 40.1.735730.3.579.2.462 Unknown [id number] 2.16.8 40.1.438327.3.579.2.462 Social History Date Type Detail Facility Start: 04-30-2019 End: 03-06-2025 Never smoked tobacco (finding) [facility] Sex Assigned At Female [facility] Sexual Orientation [facility] Start: 07-23-2020 Sex Female (finding) [facility] Functional Status Date Assessment Result Facility 06-06-2022 Functional Status Up ad paula [facility] 06-05-2022 Functional Status Independent [facility] 06-05-2022 Functional Status Standard Safet y ID band on, Allergy Band on, Call device within reach, Bed in low position, Wheels locked, Upper/Half-Length side-rails up, Phone within reach, Visitor at bedside, Safety level maintained [facility] Mental Status Date Assessment Result Facility 06-06-2022 Mental Status Oriented x 4 [facility] 06-05-2022 Mental Status Orientation Oriented x 4 [facility] 06-05-[address] [facility] Clinical Notes 08-27-2021 to 05-01-2025 Note [...] Dhruv Cook PharmD on 05/01/2025 03:23 PM [facility] 04-18-2025 Note Exam Date Time Procedure Performing Provider Status 04/18/25 9:33 AM Echocardiogram, Adult - CV SHELL MEDLEY MD; Auth (Verified) [facility]05-17-2025 Note. MICRO - Microbiology PROCEDURE: Culture [...] Locations *1: This test was performed at: [facility], [address] [place] [address], [id number]- , [facility]05-13-2025 Note* Exam Date Time Procedure Performing Provider Status 02/18/25 2:[address] Abdomen/Pelvis w/Contrast GUDELIA WISDOM MD; Auth (Verified) [id number] ORIGINAL EXAMINATION: CT OF THE ABDOMEN AND [...] Date: 02/18/2025 4:10:18 PM Ordering Provider: FITZ [facility]04-24-2025 Note Vitals: Weight: 149.6 [...] the clinic will help her apply for evp PAP. Patient will follow-up in three months [...] Dhruv Cook PharmD on 01/30/2025 01:29 PM [facility]03-27-2025 Note Vitals: - Weight: 151.8lbs History [...] up with [facility] provided glucometer and testing supplies and [...] - Foot Exam: Completed in 2024 by grain elevator man Blood Glucose Monitoring: Currently is not checking her blood sugar due to not having a working glucometer at home. Will set her up with free [facility] provided glucometer and testing supplies. [...] Assessment & Plan: Provided patient with free [facility] glucometer and testing supplies. Set [...] get her qualified for free Farxiga through evp PAP but patient wishes to discuss with [...] by Adelso Basilio on 01/02/2025 02:21 PM [facility]03-27-2025 Note Vitals: - Weight: 151.8lbs History and Physical: [facility] on diabetes management. She is currently managed on glimepiride 4mg daily. She was previously well controlled on Farxiga 10mg daily but stoppedtaking this due to the high copay. The main focus on today's visit will be setting her up with [facility] provided glucometer and testing supplies and counseling [...] - Foot Exam: Completed in 2024 by grain elevator man Blood Glucose Monitoring: Currently is not checking her blood sugar due to not having a working glucometer at home. Will set her up with free [facility] provided glucometer and testing supplies. [...] Assessment & Plan: Provided patient with free [facility] glucometer and testing supplies. Set [...] get her qualified for free Farxiga through evp PAP but patient wishes to discuss with [...] by Adelso Basilio on 01/02/2025 02:21 PM [facility]08-29-2022 Hospital Discharge instructions Patient Education 06/06/2022 [...] by your healthcare provider. You may use bomm-ylg-xsafmhj pain medicines to control pain, unless another [...] doesn t get better after several days [phone] [employer] [address] [place] [address]. All rights reserved. This information is not [...] injured area. Frequent bruising for unknown reasons [phone] [employer] [address] [place] [address]. All rights reserved. This information is not intended as a substitute for professional medical care. Always follow yourhealthcare professional's instructions. Follow Up Care 06/06/2022 11:12:51 With:FITZ GA MD Address: [place] [address]- When:2-4 days [facility] 08-29-2022 Note Discharge Instructions Thank you for allowing [facility] to assist you with your healthcare needs. [...] When Within 2-4 days Where: [place] [address]- Allergies codeine (N/V) egg albumin [...] by your healthcare provider. You may use gpnu-zsh-liljzwf pain medicines to control pain, unless another [...] doesn t get better after several days [phone] [employer] [address] [place] [address]. All rights reserved. This information is not [...] injured area. Frequent bruising for unknown reasons [phone] [employer] [address] [place] [address]. All rights reserved. This information is not intended as a substitute for professional medical care. Always follow yourhealthcare professional's instructions. Additional Information VACCINATE! IT SAVES LIVES! Members of the community who have not yet received the COVID-19 vaccine and would like to receive it can visit one of [facility] vaccine clinics. There are many vaccine clinic locations within the [facility]. For locations and available times, please visit [email or web address]. It is important to note that some COVID mobile vaccine clinics are held outdoors and may be canceled in rainy orstormy conditions. To learn more about pediatric vaccinations (ages 5-11), we invite you to visit the [facility] webpage. [email or web address] learn more about the COVID-19 vaccine, we invite you to visit the [facility] website for a list of frequently asked questions. [email or web address] [facility] Patient Portal Access Instructions: Stay connected with your healthcare team and access your personal medical information anytime with the [facility] Patient Portal. If you would like a full copy of your medical records please contact the [facility] Medical Records Department Monday through Monday between 8a.m. and 4:30p.m. Please follow the directions below to access the portal: 1.Access the email account you provided upon registration to the [facility].2.Look for an invitation email from [facility].3.Open the email and access the invitation link: Accept Invitation to [facility]4.Fill in the required meredith to create your account. Sign into [email or web address] with your username and password that you [...] you will allow to register on the [facility] Patient Portal for access to your information. You can also access the [facility] Patient Portal on the [employer] roya. Simply click on Health Records under HealthData and then click on the [facility] logo. HOW TO SAFELY DISPOSE OF PRESCRIPTION [...] Call your local pharmacy or go to [email or web address] to find one close to you.3.Make use of household items: Use cat litter or old coffee grounds to dispose medications if other options arenot available. Mix your drugs with these household products, seal them in an airtight container andthrow it into the garbage. Call [facility]: [phone] to be sure your drugs can be [...] aware that I should contact my doctor. Patient/Director Product Management Signature: Date/Time: Relationship to Patient: Witness Name/Signature: Date/Time: [id number] Note Discharge Instructions Thank you for allowing [...] DO When Within 3-7 days Where: [address] [place] [address] Follow Up with Go to emergency room if symptoms worsen When Within 2-4 days Follow Up with FITZ GA MD When Within 2-4 days Where: [address] [facility] [place] [address]- Allergies codeine (N/V) egg albumin (whites) (Unknown) [...] blue color of the hand or foot [phone] [employer]. [address] [place] [address], [place] [address]. All rights reserved. This information is not [...] in vomit, stools (black or red color) 8976-5299 [employer]. [address] [place] [address], [place] [address]. All rights reserved. This information is not intended as a substitute for professional medical care. Always follow yourhealthcare professional's instructions. Additional Information VACCINATE! IT SAVES LIVES! Members of the community who have not yet received the COVID-19 vaccine and would like to receive it can visit one of [facility] vaccine clinics. There are many vaccine clinic locations within the [facility]. For locations and available times, please visit [email or web address]. It is important to note that some COVID mobile vaccine clinics are held outdoors and may be canceled in rainy orstormy conditions. To learn more about pediatric vaccinations (ages 5-11), we invite you to visit the [facility] webpage. [email or web address] [email or web address] learn more about the COVID-19 vaccine, we invite you to visit the [facility] website for a list of frequently asked questions. [email or web address] _[email or web address].pdf [facility] Patient Portal Access Instructions: Stay connected with your healthcare team and access your personal medical information anytime with the [facility] Patient Portal. If you would like a full copy of your medical records please contact the [facility] Medical Records Department Monday through Monday between 8a.m. and 4:30p.m. Please follow the directions below to access the portal: 1.Access the email account you provided upon registration to the hospital.2.Look for an invitation email from [facility].3.Open the email and access the invitation link: Accept Invitation to [facility]4.Fill in the required meredith to create your account. Sign into [email or web address] with your username and password that you [...] you will allow to register on the [facility] Patient Portal for access to your information. You can also access the [facility] Patient Portal on the Purple Binder. Simply click on Health Records under WebTunerta and then click on the CloudCrowd logo. HOW TO SAFELY DISPOSE OF PRESCRIPTION [...] Call your local pharmacy or go to [email or web address] to find one close to you.3.Make use of household items: Use cat litter or old coffee grounds to dispose medications if other options arenot available. Mix your drugs with these household products, seal them in an airtight container andthrow it into the garbage. Call [facility]: [phone] to be sure your drugs can be [...] aware that I should contact my doctor. Patient/Director Product Management Signature: Date/Time: Relationship to Patient: Witness Name/Signature: Date/Time: [facility]08-28-2022 Hospital Discharge instructions Patient Education 06/05/2022 [...] blue color of the hand or foot [phone] [employer]. [address] [place] [address]. All rights reserved. This information is not [...] in vomit, stools (black or red color) 3546-[address] [employer] [place] [address]. All rights reserved. This information is not intended as a substitute for professional medical care. Always follow yourhealthcare professional's instructions. Follow Up Care 06/05/2022 04:08:27 With:DO SAMARIA SAVAGE DO Address: [address] [place] [address] [address] [place] [address] When:3-7 days With:Go to emergency room if symptoms worsen Address:Unknown When:2-4 days With:FITZ GA MD Address: [address] [facility] [facility] [place] [address]- When:2-4 days [facility] 08-28-2022 Note ORIGINAL EXAMINATION: TWO XRAY [...] Sign Date: 06/05/2022 5:46:32 AM Ordering Provider: [facility]08-28-2022 Note ORIGINAL EXAMINATION: TWO XRAY VIEWS OF [...] Sign Date: 06/05/2022 5:46:32 AM Ordering Provider: [facility]03-02-2022 Hospital Discharge instructions Patient Education [...] shoulder or upper arm Fever or chills [phone] [employer]. [address] [place] [address]. All rights reserved. This information is not [...] in any part of the body Seizures [phone] [employer]. [address] [place] [address]. All rights reserved. This information is not [...] the ears or bruising around the eyes [phone] [employer]. [address] [place] [address]. All rights reserved. This information is not intended as a substitute for professional medical care. Always follow yourhealthcare professional's instructions. Follow Up Care 12/08/2021 10:40:55 With:FITZ GA Address: [address] [facility] [facility] [place] [address] Business (1) When:2-4 days Comments:Return to ED if symptoms worsen [facility] 11-19-2021 Evaluation + Plan noteExtracted from: [...] s prescription regimen. I have reviewed the [place] Automated Rx Reporting System (OARRS) report for [...] Appointments Appointment Date:09/16/2021 09:30:00 AM Scheduled Provider: Location:[facility] Appointment Type:PC Nurse Lab Appointment Date:09/23/2021 11:30:00 AM Scheduled Provider: Location:[facility] Appointment Type:CV OV Appointment Date:09/27/2021 01:15:00 PM Scheduled Provider:FITZ GA MD Location:[facility] Appointment Type: OV Future Scheduled Tests Laboratory* Basic Metabolic Panel 02/06/21 * Thyroid Stimulating Hormone 03/31/21 * Free T4 03/31/21 * A1C Hemoglobin 09/30/21 * Complete Blood Count 03/31/21 * Lipid Profile 09/30/21 * Complete Metabolic Panel 09/30/21 Radiology* XR Foot Minimum 3 Views Left 06/16/21 * MA Mammo Screening Bilateral w/ Curt 11/03/20 [facility] 11-19-2021 Hospital Discharge instructions Patient Education 08/27/2021 09:25:42 PM Discharge Instructions, Esha wyman (01/08/21) ([id number]) [facility] Discharge Instructions POST PROCEDURE INSTRUCTIONS [...] drawn on (Try to have drawn at [facility] to speed results to us). Stop blood [...] xx Bring someone to drive you home. [facility] Evaluation + Plan note Future [...] MA Mammo Screening Bilateral w/ Curt 11/03/20 [facility] Evaluation + Plan note Future Appointments [...] MA Mammo Screening Bilateral w/ Curt 11/03/20 [facility] Evaluation + Plan note Future [...] CT Abdomen and Pelvis w/ contrast 12/08/21 [facility] Evaluation + Plan note Future Appointments Appointment Date:12/28/2021 10:00:00 AM Scheduled Provider:FITZ GA MD Location:[facility] Appointment Type:PC Wellness Primetime Enhanced with Labs [...] CT Abdomen and Pelvis w/ contrast 12/08/21 [facility] Evaluation + Plan note Future Appointments Appointment Date:03/15/2022 01:30:00 PM Scheduled Provider: Location:[facility] Appointment Type:COVID AMB VACCINE Appointment Date:03/23/2022 09:15:00 AM Scheduled Provider: Location:[facility] Appointment Type:PC Nurse Lab Appointment Date:03/31/2022 11:00:00 AM Scheduled Provider:FITZ GA MD Location:[facility] Appointment Type: OV Future [...] XR Wrist Minimum 3 Views Left 12/09/21 [facility] Evaluation + Plan note Future Appointments Appointment Date:03/29/2022 01:15:00 PM Scheduled Provider: Location:[facility] Appointment Type:CV OV Appointment Date:03/31/2022 11:00:00 AM Scheduled Provider:FITZ GA MD Location:[facility] Appointment Type:PC OV Future Scheduled Tests Laboratory* Complete Blood Count 09/28/21 * Complete Blood Count 03/31/21 Radiology* XR Foot Minimum 3 Views Left 06/16/21 * XR Shoulder Minimum 2 Views Left 12/09/21 * XR Wrist Minimum 3 Views Left 12/09/21 [facility] Evaluation + Plan note Future Appointments Appointment Date:05/06/2022 12:00:00 PM Scheduled Provider:JABIER BLAKE Location:PM Office Appointment Type:PM OV LOU AT Appointment Date:06/29/2022 09:30:00 AM Scheduled Provider: Location:[facility] Appointment Type:PC Nurse Lab Appointment Date:07/01/2022 10:00:00 AM Scheduled Provider:FITZ GA MD Location:[facility] Appointment Type:PC OV Diagnostic [...] XR Wrist Minimum 3 Views Left 12/09/21 [facility] Evaluation + Plan note Future Appointments Appointment Date:06/24/2022 09:00:00 AM Scheduled Provider:JABIER BLAKE Location:PM Office Appointment Type:PM OV LOU AT Appointment Date:06/29/2022 09:30:00 AM Scheduled Provider: Location:[facility] Appointment Type:PC Nurse Lab Appointment Date:07/01/2022 10:00:00 AM Scheduled Provider:FITZ GA MD Location:[facility] Appointment Type:PC OV Future Scheduled Tests Laboratory* Thyroid Stimulating Hormone 07/01/22 * A1C Hemoglobin 07/01/22 * Complete Blood Count 09/28/21 * Lipid Profile 07/01/22 * Complete Metabolic Panel 07/01/22 Radiology* XR Foot Minimum 3 Views Left 06/16/21 * XR Shoulder Minimum 2 Views Left 12/09/21 * XR Wrist Minimum 3 Views Left 12/09/21 [facility] Evaluation + Plan note Future Appointments Appointment Date:06/29/2022 09:30:00 AM Scheduled Provider: Location:[facility] Appointment Type:PC Nurse Lab Appointment Date:07/21/2022 09:30:00 AM Scheduled Provider:FITZ GA MD Location:[facility] Appointment Type:PC OV Appointment [...] XR Wrist Minimum 3 Views Left 12/09/21 [facility] Evaluation + Plan note Future Appointments Appointment Date:07/21/2022 09:30:00 AM Scheduled Provider:FITZ GA MD Location:[facility] Appointment Type:PC OV Appointment Date:08/02/2022 10:30:00 AM Scheduled Provider:DAQUAN MERCADO MD Location:PM Office Appointment Type:PM OV Future Scheduled Tests Laboratory* Complete Blood Count 09/28/21 Radiology* XR Shoulder Minimum 2 Views Left 12/09/21 * XR Wrist Minimum 3 Views Left 12/09/21 [facility] Evaluation + Plan note Future Appointments Appointment Date:09/21/2022 09:45:00 AM Scheduled Provider: Location:[facility] Appointment Type:PC Nurse Lab Appointment Date:10/13/2022 11:30:00 AM Scheduled Provider:FITZ GA MD Location:[facility] Appointment Type:PC OV Future Scheduled Tests Laboratory* Thyroid Stimulating Hormone 10/06/22 * A1C Hemoglobin 10/06/22 * Complete Blood Count 07/07/22 * Complete Blood Count 09/28/21 * Lipid Profile 10/06/22 * Complete Metabolic Panel 10/06/22 Radiology* XR Shoulder Minimum 2 Views Left 12/09/21 * XR Wrist Minimum 3 Views Left 12/09/21 [facility] Evaluation + Plan note Future Appointments Appointment Date:10/13/2022 11:30:00 AM Scheduled Provider:FITZ GA MD Location:[facility] Appointment Type:PC OV Future Scheduled Tests Laboratory* Complete Blood Count 07/07/22 Radiology* XR Shoulder Minimum 2 Views Left 12/09/21 * XR Wrist Minimum 3 Views Left 12/09/21 [facility] Evaluation + Plan note Future Appointments Appointment Date:11/30/2022 01:00:00 PM Scheduled Provider: Location:[facility] Appointment Type:CV Procedure - AOH Echo Appointment Date:01/04/2023 09:30:00 AM Scheduled Provider: Location:[facility] Appointment Type:PC Nurse Lab Appointment Date:01/12/2023 11:30:00 AM Scheduled Provider:FITZ GA MD Location:[facility] Appointment Type:PC Wellness Primetime [...] XR Wrist Minimum 3 Views Left 12/09/21 [facility] Evaluation + Plan note Future Appointments Appointment Date:01/12/2023 11:30:00 AM Scheduled Provider:FITZ GA MD Location:[facility] Appointment Type:PC Wellness Primetime Enhanced Appointment Date:02/01/2023 11:30:00 AM Scheduled Provider:DAQUAN MERCADO MD Location:PM Office Appointment Type:PM OV Appointment Date:02/02/2023 11:45:00 AM Scheduled Provider: Location:[facility] Appointment Type:CV OV Future Scheduled Tests Laboratory* Complete Blood Count 07/07/22 [facility] Evaluation + Plan note Future Appointments Appointment Date:02/02/2023 11:45:00 AM Scheduled Provider: Location:[facility] Appointment Type:CV OV Appointment Date:03/29/2023 09:30:00 AM Scheduled Provider: Location:[facility] Appointment Type:PC Nurse Lab Appointment Date:04/14/2023 10:30:00 AM Scheduled Provider:FITZ GA MD Location:[facility] Appointment Type:PC OV Future Scheduled Tests Laboratory* Thyroid Stimulating Hormone 04/13/23 * A1C Hemoglobin 04/13/23 * Complete Blood Count 07/07/22 * Complete Blood Count 01/12/23 * Lipid Profile 04/13/23 * Complete Metabolic Panel 04/13/23 [facility] Evaluation + Plan note Future Appointments Appointment Date:04/14/2023 10:30:00 AM Scheduled Provider:FITZ GA MD Location:[facility] Appointment Type:PC OV Future Scheduled Tests Laboratory* Complete Blood Count 07/07/22 * Complete Blood Count 01/12/23 [facility] Evaluation + Plan note Future Appointments Appointment Date:07/14/2023 10:45:00 AM Scheduled Provider:FITZ GA MD Location:[facility] Appointment Type:PC OV Appointment Date:08/03/2023 09:10:00 AM Scheduled Provider:DAQUAN MERCADO MD Location:PM Office Appointment Type:PM OV Appointment Date:08/08/2023 10:45:00 AM Scheduled Provider: Location:[facility] Appointment Type:CV OV [facility] Evaluation + Plan note Future Appointments Appointment Date:02/13/2024 11:00:00 AM Scheduled Provider: Location:[facility] Appointment Type:CV OV Appointment Date:04/03/2024 09:00:00 AM Scheduled Provider: Location:[facility] Appointment Type:PC Nurse Lab Appointment Date:04/12/2024 11:00:00 AM Scheduled Provider:FITZ GA MD Location:[facility] Appointment Type:PC OV Future Scheduled Tests Laboratory* Thyroid Stimulating Hormone 04/12/24 * A1C Hemoglobin 04/12/24 * Complete Blood Count 01/12/24 * Lipid Profile 04/12/24 * Complete Metabolic Panel 04/12/24 [facility] Evaluation + Plan note Future Appointments Appointment Date:04/12/2024 11:00:00 AM Scheduled Provider:FITZ GA MD Location:[facility] Appointment Type:PC Wellness Primetime Enhanced Future Scheduled Tests Laboratory* Complete Blood Count 01/12/24 [facility] Evaluation + Plan note Future Appointments Appointment Date:07/19/2024 11:00:00 AM Scheduled Provider:FITZ GA MD Location:[facility] Appointment Type:PC OV Future Scheduled Tests Laboratory* Complete Blood Count 01/12/24 [facility] Evaluation + Plan note Future Appointments Appointment Date:10/13/2023 11:00:00 AM Scheduled Provider:FITZ GA MD Location:[facility] Appointment Type:PC OV Follow Up [facility] Evaluation + Plan note Future Appointments Appointment Date:11/14/2024 02:30:00 PM Scheduled Provider:FITZ GA MD Location:[facility] Appointment Type:PC OV Future Scheduled Tests Laboratory* Complete Blood Count 01/12/24 [facility] Evaluation + Plan note Future Appointments Appointment Date:02/20/2025 03:00:00 PM Scheduled Provider:FITZ GA MD Location:[facility] Appointment Type:PC OV Appointment Date:03/20/2025 10:30:00 AM Scheduled Provider:JESSE NATARAJAN Location:[facility] Appointment Type:CV OV Appointment Date:05/01/2025 11:00:00 AM Scheduled Provider: Location:[facility] Appointment Type:MEDS - Diabetic Individual Visit Future Scheduled Tests Radiology* CT Abdomen and Pelvis w/ contrast 02/12/25 [facility] Evaluation + Plan note Future Appointments Appointment Date:02/20/2025 09:30:00 AM Scheduled Provider:FITZ GA MD Location:[facility] Appointment Type:PC OV Appointment Date:03/20/2025 10:30:00 AM Scheduled Provider:JESSE NATARAJAN Location:[facility] Appointment Type:CV OV Appointment Date:05/01/2025 11:00:00 AM Scheduled Provider: Location:[facility] Appointment Type:MEDS - Diabetic Individual Visit [facility] Evaluation + Plan note Future Appointments Appointment Date:03/06/2025 01:30:00 PM Scheduled Provider:FITZ GA MD Location:[facility] Appointment Type:PC OV Follow Up Appointment Date:03/20/2025 10:30:00 AM Scheduled Provider:JESSE NATARAJAN Location:[facility] Appointment Type:CV OV Appointment Date:05/01/2025 11:00:00 AM Scheduled Provider: Location:[facility] Appointment Type:MEDS - Diabetic Individual Visit [facility] Evaluation + Plan note Future Appointments Appointment Date:03/20/2025 10:30:00 AM Scheduled Provider:JESSE NATARAJAN Location:[facility] Appointment Type:CV OV Appointment Date:05/01/2025 11:00:00 AM Scheduled Provider: Location:[facility] Appointment Type:MEDS - Diabetic Individual Visit Appointment Date:05/26/2025 09:30:00 AM Scheduled Provider: Location:[facility] Appointment Type:PC Nurse Lab Appointment Date:06/05/2025 11:30:00 AM Scheduled Provider:FITZ GA MD Location:[facility] Appointment Type:[facility] Evaluation + Plan note Future Appointments Appointment Date:04/18/2025 09:00:00 AM Scheduled Provider: Location:[facility] Appointment Type:Echo - Echocardiogram Adult Appointment Date:05/01/2025 11:00:00 AM Scheduled Provider: Location:[facility] Appointment Type:MEDS - Diabetic Individual Visit Appointment Date:05/26/2025 09:30:00 AM Scheduled Provider: Location:[facility] Appointment Type:PC Nurse Lab Appointment Date:06/05/2025 11:30:00 AM Scheduled Provider:FITZ GA MD Location:[facility] Appointment Type:[facility] Evaluation + Plan note Future Appointments Appointment Date:05/01/2025 11:00:00 AM Scheduled Provider: Location:[facility] Appointment Type:MEDS - Diabetic Individual Visit Appointment Date:05/26/2025 09:30:00 AM Scheduled Provider: Location:[facility] Appointment Type:PC Nurse Lab Appointment Date:06/05/2025 11:30:00 AM Scheduled Provider:FITZ GA MD Location:[facility] Appointment Type:[facility] Evaluation + Plan note Future Appointments Appointment Date:05/26/2025 09:30:00 AM Scheduled Provider: Location:[facility] Appointment Type:PC Nurse Lab Appointment Date:06/03/2025 09:30:00 AM Scheduled Provider:FITZ GA MD Location:[facility] Appointment Type:[facility] Evaluation + Plan note Future Appointments Appointment Date:06/17/2025 11:30:00 AM Scheduled Provider:FITZ GA MD Location:[facility] Appointment Type:[facility] Evaluation + Plan note Future Appointments Appointment Date:09/01/2025 10:45:00 AM Scheduled Provider:JESSE NATARAJAN Location:[facility] Appointment Type:CV OV [facility] Hospital course Narrative No data available for this section [facility] Hospital Discharge instructions No data available for this section [facility] Note* Noah Swain L: PERFORM Event Display: Pain Management Treatment Agreement Authored Date: [id number] [facility] Progress note No data available for this section [facility] Summary Purpose Family [...] section and content) DATE CREATED AUTHOR 11/28/2021 [facility] Ce kalen Chaudhry DATE CREATED AUTHOR AUTHOR'S ORGANIZ ATION 04/08/2024 [facility] ([place]) DATE CREATED AUTHOR AUTHOR'S ORGANIZ ATION 03/23/2025 [facility] DATE CREATED AUTHOR AUTHOR'S ORGANIZ ATION 08/03/2025 [facility] DATE CREATED AUTHOR AUTHOR'S ORGANIZ ATION 08/20/2025 [facility] Care Team (unrecognized sect ion and content) Personnel Name: FITZ GA MD Address: [address] [facility] [address] [facility] [place], [place] [address] Name: Yanira Liz Personnel Name: FITZ GA MD Address: [address] [place] [address]- [place] Name: Yanira Liz Care Team Personnel Name: ANTOLIN DICKENS Position: P4 Advanced Anchorman Member Role: Pain Management Address: Address: [address] [place] [address]- [place] Name: Yanira Liz Position: P3 Scheduling - Truck Chauffeur Advanced Member Role: Other Name: DAQUAN MERCADO MD Position: P4 Physician - General Surgery Member Role: Pain Management Address: Address: [address] [facility] [place] [address]- [place] Name: FITZ GA MD Position: P4 Physician - Primary Care Member Role: Primary Care Physician Address: Address: [place] [address]- Name: Britni Otto Position: Quality Review Member Role: Library Media Specialist Care Team Related Persons Name: MALVIN MASON Address: Home [id number] [place], [place] [id number] Care Team Personnel Name: ANTOLIN DICKENS Position: P4 Advanced Anchorman Member Role: Pain Management Address: Address: [address] [place] [address]- [place] Name: Yanira Liz Position: P3 Scheduling - Truck Chauffeur Advanced Member Role: Other Name: DAQUAN MERCADO MD Position: P4 Physician - General Surgery Member Role: Pain Management Address: Address: [address] [facility] [place] [address]- [place] Name: FITZ GA MD Position: P4 Physician - Primary Care Member Role: Primary Care Physician Address: [address] [facility] [place] [address]- Name: Britni Otto Position: Quality Review Member Role: Library Media Specialist Care Team Related Persons Name: MALVIN MASON Address: Home [address] [place], [place] [id number] [place] Care Team Personnel Name: ANTOLIN DICKENS Position: P4 Advanced Anchorman Member Role: Pain Management Address: Address: [address] [facility] [place] [address]- [place] Name: Yanira Liz Position: P3 Scheduling - Truck Chauffeur Advanced Member Role: Other Name: DAQUAN MERCADO MD Position: P4 Physician - General Surgery Member Role: Pain Management Address: Address: [address] [facility] [place] [address]- [place] Name: FITZ GA MD Position: P4 Physician - Primary Care Member Role: Primary Care Physician Address: Address: [place] [address]- [place] Name: Britni Otto Position: Quality Review Member Role: Library Media Specialist Care Team Related Persons Name: MALVIN MASON Address: [address] [id number] Care Team Personnel Name: ANTOLIN DICKENS Position: P4 Advanced Anchorman Member Role: Pain Management Address: Address: [address] [facility] [place] [address]- [place] Name: Yanira Liz Position: P3 Scheduling - Truck Chauffeur Advanced Member Role: Other Name: DAQUAN MERCADO MD Position: P4 Physician - General Surgery Member Role: Pain Management Address: Address: [address] [facility] [place] [address]- [place] Name: FITZ GA MD Position: P4 Physician - Primary Care Member Role: Primary Care Physician Address: Address: [place] [address]- [place] Name: Britni Otto Position: Quality Review Member Role: Library Media Specialist Care Team Related Persons Name: KWAKU MASON Care Team Personnel Name: ANTOLIN DICKENS Position: Hospitalist Advanced Practice Nurse Member Role: Pain Management Address: Address: [address] [place] [address]- [place] Name: Yanira Liz LPN Position: DRUM CARRIER Member Role: Other Name: DAQUAN MERCADO MD Position: P4 Physician - General Surgery Member Role: Pain Management Address: Address: [address] [facility] Pain [facility] [place], [place] [address] Name: FITZ GA MD Position: P4 Physician - Primary Care Member Role: Primary Care Physician Address: Address: [address] [place] [id number] [place] [address] Name: Britni Otto Position: Quality Review Member Role: Library Media Specialist Care Team Related Persons Name: KWAKU MASON Care Team Personnel Name: ANTOLIN DICKENS Position: Hospitalist Advanced Practice Nurse Member Role: Pain Management Address: Address: [facility] [address] [place] [address] Name: Yanira Liz LPN Position: DRUM CARRIER Member Role: Other Name: DAQUAN MERCADO MD Position: P4 Physician - General Surgery Member Role: Pain Management Address: Address: [address] [facility] [address] Name: FITZ GA MD Position: P4 Physician - Primary Care Member Role: Primary Care Physician Address: Address: [address] Name: Britni Otto Position: Quality Review Member Role: Library Media Specialist Care Team Related Persons Name: KWAKU MASON Care Team Personnel Name: ANTOLIN DICKENS Position: Hospitalist Advanced Practice Nurse Member Role: Pain Management Address: Address: [facility] [address] [place] [address] Name: Yanira Liz LPN Position: DRUM CARRIER Member Role: Other Name: DAQUAN MERCADO MD Position: P4 Physician - General Surgery Member Role: Pain Management Address: Address: [address] [facility] Pain Management [place], [place] [address] Name: FITZ GA MD Position: P4 Physician - Primary Care Member Role: Primary Care Physician Address: Address: [place] [address]- [place] Name: Britni Otto Position: Quality Review Member Role: Library Media Specialist Care Team Related Persons Name: KWAKU MASON Care Team Personnel Name: ANTOLIN DICKENS Position: P4 Advanced Anchorman Member Role: Pain Management Address: Address: [address] [facility] Pain Management [place], [place] [address] Name: Yanira Liz Position: P3 Scheduling - Truck Chauffeur Advanced Member Role: Other Name: DAQUAN MERCADO MD Position: P4 Physician - General Surgery Member Role: Pain Management Address: Address: [address] [facility] [place], [place] [address] Name: FITZ GA MD Position: P4 Physician - Primary Care Member Role: Primary Care Physician Address: [facility]: [facility] [place] [address]- [place] Name: Britni Otto Position: Quality Review Member Role: Library Media Specialist Care Team Related Persons Name: KWAKU MASON Care Team Personnel Name: ANTOLIN DICKENS Position: Hospitalist Advanced Practice Nurse Member Role: Pain Management Address: [address] [place] [address] Telecom: Name: DAQUAN MERCADO MD Position: P4 Physician - General Surgery Member Role: Pain Management Address: [address] [facility] [place], [place] [address] Telecom: Name: Yanira Chen LPN Position: DRUM CARRIER Member Role: Other Name: FITZ GA MD Position: P4 Physician - Primary Care Member Role: Primary Care Physician Address: [facility] [place] [address]- [place] Telecom: Name: Britni Otto Position: Quality Review Member Role: Library Media Specialist Care Team Related Persons Name: KWAKU MASON Care Team Personnel Name: ANTOLIN DICKENS Position: Hospitalist Advanced Practice Nurse Member Role: Pain Management Address: [address] [place] [address]- [place] Telecom: Name: DAQUAN MERCADO MD Member Role: Pain Management Address: [address] [facility] [place] [address]- [place] Telecom: Name: Yanira Chen LPN Position: DRUM CARRIER Member Role: Other Name: FITZ GA MD Position: P4 Physician - Primary Care Member Role: Primary Care Physician Address: [address] [place], [place] [address] Telecom: Name: Britni Otto Position: Quality Review Member Role: Library Media Specialist Care Team Related Persons Name: KWAKU MASON Care Team Personnel Name: ANTOLIN DICKENS Position: Hospitalist Advanced Practice Nurse Member Role: Pain Management Address: [address] [place] [address] Telecom: Name: DAQUAN MERCADO MD Member Role: Pain Management Address: [address] [facility] Pain Management [place], [place] [address] [place] [address] Telecom: Name: Yanira Chen LPN Position: DRUM CARRIER Member Role: Other Name: FITZ GA MD Position: P4 Physician - Primary Care Member Role: Primary Care Physician Address: [address] Telecom: Name: Britni Otto Position: Quality Review Member Role: Library Media Specialist Care Team Related Persons Name: KWAKU MASON Care Team Personnel Name: ANTOLIN DICKENS Position: Hospitalist Advanced Practice Nurse Member Role: Pain Management Address: [address] [place], [place] [id number]- [place] Telecom: Name: DAQUAN MERCADO MD Member Role: Pain Management Address: [address] [facility] [place] [address]- [place] Telecom: Name: Yanira Chen LPN Position: DRUM CARRIER Member Role: Other Name: FITZ GA MD Position: P4 Physician - Primary Care Member Role: Primary Care Physician Address: [address] Telecom: Name: Britni Otto Position: Quality Review Member Role: Library Media Specialist Care Team Related Persons Name: KWAKU MASON Care Team Personnel Name: ANTOLIN DICKENS Position: Hospitalist Advanced Practice Nurse Member Role: Pain Management Address: [address] Telecom: Name: DAQUAN MERCADO MD Member Role: Pain Management Address: [address] [facility] [place] [address]- [place] Telecom: Name: Yanira Chen LPN Position: DRUM CARRIER Member Role: Other Name: FITZ GA MD Position: P4 Physician - Primary Care Member Role: Primary Care Physician Address: [address] Telecom: Name: Britni Otto Position: Quality Review Member Role: Library Media Specialist Care Team Related Persons Name: KWAKU MASON Care Team Personnel Name: ANTOLIN DICKENS Position: Hospitalist Advanced Practice Nurse Member Role: Pain Management Address: [address] [place] [address]- [place] Telecom: Name: DAQUAN MERCADO MD Member Role: Pain Management Address: [address] [facility] [place] [address]- [place] Telecom: Name: Yanira Chen LPN Position: DRUM CARRIER Member Role: Other Name: FITZ GA MD Position: P4 Physician - Primary Care Member Role: Primary Care Physician Address: [address] Telecom: Name: Britni Otto Position: Quality Review Member Role: Library Media Specialist Care Team Related Persons Name: KWAKU MASON Care Team Personnel Name: ANTOLIN DICKENS Position: Hospitalist Advanced Practice Nurse Member Role: Pain Management Address: [address] [place] [id number]- Telecom: Name: DAQUAN MERCADO MD Member Role: Pain Management Address: [address] [facility] [place] [address]- [place] Telecom: Name: Yanira Chen LPN Position: DRUM CARRIER Member Role: Other Name: FITZ GA MD Position: P4 Physician - Primary Care Member Role: Primary Care Physician Address: [address] Telecom: Name: Britni Otto Position: Quality Review Member Role: Library Media Specialist Care Team Related Persons Name: KWAKU MASON Care Team Personnel Name: ANTOLIN DICKENS Position: Hospitalist Advanced Practice Nurse Member Role: Pain Management Address: [address] [place] Telecom: Name: DAQUAN MERCADO MD Member Role: Pain Management Address: [address] [facility] [place] [address] [place] Telecom: Name: Yanira Chen LPN Position: DRUM CARRIER Member Role: Other Name: FITZ GA MD Position: P4 Physician - Primary Care Member Role: Primary Care Physician Address: [address] Telecom: Name: Britni Otto Position: Quality Review Member Role: Library Media Specialist Care Team Related Persons Name: KWAKU MASON Care Team Personnel Name: ANTOLIN DICKENS Position: Hospitalist Advanced Practice Nurse Member Role: Pain Management Address: [address] [place] [address]- Telecom: Name: DAQUAN MERCADO MD Member Role: Pain Management Address: [address] [facility] [place] [address]- [place] Telecom: Name: Yanira Chen LPN Position: DRUM CARRIER Member Role: Other Name: FITZ GA MD Position: P4 Physician - Primary Care Member Role: Primary Care Physician Address: [address] Telecom: Name: Britni Otto Position: Quality Review Member Role: Library Media Specialist Care Team Related Persons Name: KWAKU MASON Care Team Personnel Name: ANTOLIN DICKENS Position: Hospitalist Advanced Practice Nurse Member Role: Pain Management Address: [address] [place] [address] Telecom: Name: DAQUAN MERCADO MD Member Role: Pain Management Address: [address] [facility] Pain Management [place], [place] [address] Telecom: Name: Yanira Chen LPN Position: DRUM CARRIER Member Role: Other Name: FITZ GA MD Position: P4 Physician - Primary Care Member Role: Primary Care Physician Address: [address] Telecom: Name: Britni Otto Position: Quality Review Member Role: Library Media Specialist Care Team Related Persons Name: KWAKU MASON Care Team Personnel Name: ANTOLIN DICKENS Position: Hospitalist Advanced Practice Nurse Member Role: Pain Management Address: [address] [place] [address]- [place] Telecom: Name: DAQUAN MERCADO MD Member Role: Pain Management Address: [address] [facility] [place] [address]- [place] Telecom: Name: Yanira Chen LPN Position: DRUM CARRIER Member Role: Other Name: FITZ GA MD Position: P4 Physician - Primary Care Member Role: Primary Care Physician Address: [address] [place], [place] [address] Telecom: Name: Britni Otto Position: Quality Review Member Role: Library Media Specialist Care Team Related Persons Name: KWAKU MASON Care Team (unrecognized sect ion and content) Care Team Personnel Name: ANTOLIN DICKENS Position: P4 Advanced Practice Nurse Med Service: Active Provider Member Role: Pain Management Address: Address: [address] [facility] [place] [address]- Name: Yanira Liz Position: P3 Scheduling - Truck Chauffeur Advanced Member Role: Other Name: DAQUAN MERCADO MD Position: P4 Physician - General Surgery Med Service: Active Provider Member Role: Pain Management Address: Address: [address] [facility] [place] [address]- Name: FITZ GA MD Position: P4 Physician - Primary Care Med Service: Active Provider Member Role: Primary Care Physician Address: Address: [address] [place], [place] [address] Name: [facility] [place] Position: Quality Review Member Role: Library Media Specialist Name: BUNNY Chilel Position: AO RN Member Role: Library Media Specialist Care Team Related Persons Name: MALVIN MASON Address: [address] [phone] Care Team Personnel Name: ANTOLIN DICKENS Position: P4 Advanced Practice Nurse Med Service: Active Provider Member Role: Pain Management Address: Address: [address] [facility] [place] [address]- Name: Yanira Lzi Position: P3 Scheduling - Truck Chauffeur Advanced Member Role: Other Name: DAQUAN MERCADO MD Position: P4 Physician - General Surgery Med Service: Active Provider Member Role: Pain Management Address: Address: [address] [facility] [place] [address]- [place] Name: FITZ GA MD Position: P4 Physician - Primary Care Med Service: Active Provider Member Role: Primary Care Physician Address: Address: [address] [place] [address] Name: Britni Otto Position: Quality Review Member Role: Library Media Specialist Name: BUNNY Chilel Position: P3 vegetable harvest machine operator Member Role: Library Media Specialist Care Team Related Persons Name: MALVIN MASON Address: Home [id number] [place] [phone] Care Team Personnel Name: ANTOLIN DICKENS Position: P4 Advanced Practice Nurse Address: Address: [address] [facility] [address] [facility] [place], [place] [address] Name: Yanira Liz Position: P3 Scheduling - Truck Chauffeur Advanced Member Role: Other Name: DAQUAN MERCADO MD Position: P4 Physician - General Surgery Address: Address: [address] [facility] [place], [place] [address] Name: FITZ GA MD Position: P4 Physician - Primary Care Member Role: Primary Care Physician Address: Address: [address] [place] [address] Name: Britni Otto Position: Quality Review Member Role: Library Media Specialist Name: BUNNY Chilel Position: AO RN Member Role: Library Media Specialist Care Team Related Persons Name: MALVIN MASON Address: [address] [phone] Care Team Personnel Name: ANTOLIN DICKENS Position: P4 Advanced Practice Nurse Address: Address: [address] [facility] [address] [facility] [place], [place] [address] Name: Yanira Liz Position: P3 Scheduling - Truck Chauffeur Advanced Member Role: Other Name: DAQUAN MERCADO MD Position: P4 Physician - General Surgery Address: Address: [address] [facility] [address] [facility] [place], [place] [address] Name: FITZ GA MD Position: P4 Physician - Primary Care Member Role: Primary Care Physician Address: Address: [address] [place] [id number] Name: Britni Otto Position: Quality Review Member Role: Library Media Specialist Name: BUNNY Chilel Position: AO RN Member Role: Library Media Specialist Name: RODRI SY DO Position: ED Physician Member Role: Attending Physician Address: Address: [address] [place], [place] [address] Care Team Related Persons Name: MALVIN MASON Address: Home [address] [place], [place] [phone] [place] Care Team Personnel Name: ANTOLIN DICKENS Position: P4 Advanced Practice Nurse Address: Address: [address] [facility] [place], [place] [address] [place] [address] Name: Yanira Liz Position: P3 Scheduling - Truck Chauffeur Advanced Member Role: Other Name: DAQUAN MERCADO MD Position: P4 Physician - General Surgery Address: Address: [address] [facility] [place], [place] [address] Name: FITZ GA MD Position: P4 Physician - Primary Care Member Role: Primary Care Physician Address: Address: [address] Name: Britni Otto Position: Quality Review Member Role: Library Media Specialist Name: BUNNY Chilel Position: AO RN Member Role: Library Media Specialist Name: HARSHAD TEIXEIRA MD Position: ED Physician Member Role: ED Physician Address: Address: [address] [place] [address] Name: BUNNY Turner Position: AO RN Member Role: ED RN Care Team Related Persons Name: MALVIN MASON Address: Home [id number] [place] [phone] [place] Care Team Personnel Name: ANTOLIN DICKENS Position: P4 Advanced Practice Nurse Med Service: Active Provider Member Role: Pain Management Address: Address: [address] [facility] [place] [address]- [place] Name: Yanira Liz Position: P3 Scheduling - Truck Chauffeur Advanced Member Role: Other Name: DAQUAN MERCADO MD Position: P4 Physician - General Surgery Med Service: Active Provider Member Role: Pain Management Address: Address: [address] [facility] [place] [address]- Name: FITZ GA MD Position: P4 Physician - Primary Care Med Service: Active Provider Member Role: Primary Care Physician Address: Address: [address] [place] [address]- Name: Britni Otto Position: Quality Review Member Role: Library Media Specialist Care Team Related Persons Name: MALVIN MASON Address: Home [address] [place], [place] [phone] [place] Care Team Personnel Name: ANTOLIN DICKENSFIREARMS SALES ASSOCIATE Position: P4 Advanced Practice Nurse Member Role: Pain Management [facility]: [facility] [address] [facility] [address]- Name: Yanira Liz Position: P3 Scheduling - Truck Chauffeur Advanced Member Role: Other Name: DAQUAN MERCADO MD Position: P4 Physician - General Surgery Member Role: Pain Management Address: Address: [address] [facility] [place] [address]- Name: FITZ GA MD Position: P4 Physician - Primary Care Member Role: Primary Care Physician Address: Address: [address] [place] [address] Name: Britni Otto Position: Quality Review Member Role: Library Media Specialist Care Team Related Persons Name: MALVIN MASON Address: Home [address] [place] [phone] [place] Care Team Personnel Name: ANTOLIN DICKENSFIREARMS SALES ASSOCIATE Position: P4 Advanced Practice Nurse Member Role: Pain Management Address: Address: [address] [place] [address]- [place] Name: Yanira Liz Position: P3 Scheduling - Truck Chauffeur Advanced Member Role: Other Name: DAQUAN MERCADO MD Position: P4 Physician - General Surgery Member Role: Pain Management Address: Address: [address] [facility] [address]- [place] Name: FITZ GA MD Position: P4 Physician - Primary Care Member Role: Primary Care Physician Address: Address: [address] [place] [id number]- Name: Britni Otto Position: Quality Review Member Role: Library Media Specialist Care Team Related Persons Name: MALVIN MASON Address: Home [address] [place], [place] [phone] Care Team Personnel Name: ANTOLIN DICKENS Position: P4 Advanced Practice Nurse Member Role: Pain Management Address: Address: [address] [facility] [place] [address]- [place] Name: Yanira Liz Position: P3 Scheduling - Truck Chauffeur Advanced Member Role: Other Name: DAQUAN MERCADO MD Position: P4 Physician - General Surgery Member Role: Pain Management Address: Address: [address] [facility] [place] [address]- Name: FITZ GA MD Position: P4 Physician - Primary Care Member Role: Primary Care Physician Address: Address: [address] [place] [address]- Name: Britni Otto Position: Quality Review Member Role: Library Media Specialist Care Team Related Persons Name: MALVIN MASON Address: Home [address] [place], [place] [phone] Care Team Personnel Name: ANTOLIN DICKENS Position: P4 Advanced Practice Nurse Member Role: Pain Management Address: Address: [address] [place] [address]- [place] Name: Yanira Liz Position: P3 Scheduling - Truck Chauffeur Advanced Member Role: Other Name: DAQUAN MERCADO MD Position: P4 Physician - General Surgery Member Role: Pain Management Address: Address: [address] [facility] [address] [place] [address]- [place] Name: FITZ GA MD Position: P4 Physician - Primary Care Member Role: Primary Care Physician Address: Address: [address] [place] [address]- [place] Name: Britni Otot AshliMagui Position: Quality Review Member Role: Library Media Specialist Care Team Related Persons Name: MALVIN MASON Address: Home [address] [place] [phone] FOR RECORDS PERTAINING TO PATIENTS WHO ARE [...] BE BASED ON THE PRIMARY CLINICAL RECORDS. [facility] [employer] provides no warranty or guarantee of the accuracy or completeness of information in this document.
[2025-09-29 08:04] LABS: Hematocrit 32.0 % (37-47); Hemoglobin 10.0 g/dL (12.0-15.0); Mean Corp Hgb Conc 31.3 g/dL (32-36); Mean Corpuscular Volume 99.1 fL (81-99); Mean Platelet Vol. 9.5 fl (6.2-12.0); Platelet Count 161 K/mm3 (150-450); RBC Distribution Width CV 14.1 % (11.6-14.6); RBC Distribution Width SD 51.7 fl (35.1-43.9); Red Blood Count 3.23 M/mm3 (4.2-5.4); White Blood Count 5.2 K/mm3 (4.4-11.0)
== END ==
LOC: OLS.SWAL 05:00
PROVIDERS: PCP Internal Medicine; Visit Provider Internal Medicine
DX: D64.9 Anemia, unspecified (principal)
CPT/HCPCS: 36415; 85027